=== PATIENT | female | born 1990 | race Hispanic/Latino ===

== ENCOUNTER 2018-05-17 13:10 | Emergency (ER) | payer SELFPAY ==
[2018-05-17] MEDS ORDERED: METHYLPREDNISOLONE 125 MG INJ ONE (13:42)
[2018-05-17] MEDS ORDERED: LEVALBUTEROL 1.25 MG/3 ML NEB ONE ×2 (13:42→15:34)
[2018-05-17] MEDS ORDERED: NA CHLORIDE 0.9% 1,000 ML ONE (13:42)
--- NOTE | 2018-05-17 15:59 | EDPHYS ---
Physician Documentation [facility] Name: Erika Conde Age: 27 yrs Sex: Female : 1990 Arrival Date: 05/17/2018 Time: 13:14 Bed 25 Private MD: ED Physician James Lua HPI: 05/17 14:36 This 27 yrs old Female presents to ER via Ambulatory with complaints of Asthma jr8 Exacerbation, Cough. 14:36 The patient presents to the emergency department with wheezing, Current therapy: jr8 albuterol inhaler, oral steroids. 15:50 Onset: The symptoms/episode began/occurred acutely, today. Modifying factors: The jr8 symptoms are alleviated by nothing, the symptoms are aggravated by nothing. Associated signs and symptoms: Pertinent negatives: chest pain, fever. Severity of symptoms: At their worst the symptoms were moderate in the emergency department the symptoms are unchanged. The patient has experienced similar episodes in the past, a few times. The patient has not recently seen a physician. 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 - Social history:: Smoking status: Patient/guardian denies using tobacco. - Ebola Screening: : No symptoms or risks identified at this time. ROS: 15:50 Eyes: Negative for injury, pain, redness, and discharge, ENT: Negative for injury, jr8 pain, and discharge, Neck: Negative for injury, pain, and swelling, Cardiovascular: Negative for chest pain, palpitations, and edema, Abdomen/GI: Negative for abdominal pain, nausea, vomiting, diarrhea, and constipation, Back: Negative for injury and pain, MS/Extremity: Negative for injury and deformity, Skin: Negative for injury, rash, and discoloration, Neuro: Negative for headache, weakness, numbness, tingling, and seizure. 15:50 Respiratory: Positive for cough, with no reported sputum, shortness of breath, wheezing. Exam: 15:50 Eyes: Pupils equal round and reactive to light, extra-ocular motions intact. Lids and jr8 lashes normal. Conjunctiva and sclera are non-icteric and not injected. Cornea within normal limits. Periorbital areas with no swelling, redness, or edema. ENT: Nares patent. No nasal discharge, no septal abnormalities noted. Tympanic membranes are normal and external auditory canals are clear. Oropharynx with no redness, swelling, or masses, exudates, or evidence of obstruction, uvula midline. Mucous membranes moist. Neck: Trachea midline, no thyromegaly or masses palpated, and no cervical lymphadenopathy. Supple, full range of motion without nuchal rigidity, or vertebral point tenderness. No Meningismus. Cardiovascular: Regular rate and rhythm with a normal S1 and S2. No gallops, murmurs, or rubs. Normal PMI, no JVD. No pulse deficits. Abdomen/GI: Soft, non-tender, with normal bowel sounds. No distension or tympany. No guarding or rebound. No evidence of tenderness throughout. Back: No spinal tenderness. No costovertebral tenderness. Full range of motion. Skin: Warm, dry with normal turgor. Normal color with no rashes, no lesions, and no evidence of cellulitis. MS/ Extremity: Pulses equal, no cyanosis. Neurovascular intact. Full, normal range of motion. Neuro: Awake and alert, GCS 15, oriented to person, place, time, and situation. Cranial nerves II-XII grossly intact. Motor strength 5/5 in all extremities. Sensory grossly intact. Cerebellar exam normal. Normal gait. 15:50 Respiratory: mild respiratory distress is noted, Respirations: tachypnea, Breath sounds: decreased breath sounds, that are moderate, are located in both bases, wheezing: expiratory that is moderate, is heard diffusely. Vital Signs: 13:24 BP 93 / 79; Pulse 115; Resp 26 S; Temp 97.2(TE); Pulse Ox 96% on R/A; Weight 80.29 kg aa5 (R); Pain 5/10; 14:58 BP 113 / 85; Pulse 114; Resp 20; Pulse Ox 98% on R/A; mt 15:16 BP 106 / 71; Pulse 85; Resp 18; Pulse Ox 100% on R/A; tl3 16:02 BP 108 / 72; Pulse 95; Resp 18; Pulse Ox 100% on Nebulizer Mask; tl3 16:43 BP 115 / 70; Pulse 109; Resp 18; Pulse Ox 100% ; tl3 MDM: 13:28 Patient medically screened. jr8 15:57 Data reviewed: vital signs, nurses notes, and as a result, I will discharge patient. jr8 Data interpreted: Pulse oximetry: on room air is 100 %. Interpretation: normal. Counseling: I had a detailed discussion with the patient and/or guardian regarding: the historical points, exam findings, and any diagnostic results supporting the discharge/admit diagnosis, the need for outpatient follow up, a family practitioner, to return to the emergency department if symptoms worsen or persist or if there are any questions or concerns that arise at home. Response to treatment: the patient's symptoms have markedly improved after treatment. 05/17 13:29 Order name: IV; Complete Time: 13:40 jr8 Administered Medications: 13:35 Drug: Xopenex (3) 1.25 mg Route: Inhalation; aa5 15:18 Follow up: Response: Wheezing diminished tl3 13:36 Drug: NS 0.9% 1000 ml Route: IV; Rate: 1000 ml; Site: left antecubital; aa5 15:18 Follow up: IV Status: Completed infusion; IV Intake: 1000ml tl3 13:36 Drug: SOLU-Medrol 125 mg Route: IVP; Site: left antecubital; aa5 15:18 Follow up: Response: No adverse reaction tl3 13:41 CANCELLED (Physician Discretion): SOLU-Medrol 2 mg/kg IVP once aa5 15:40 Drug: Xopenex (3) 1.25 mg Route: Inhalation; tl3 16:43 Follow up: Response: No adverse reaction; Wheezing diminished tl3 Disposition: 17:13 Co-signature as Attending Physician, James Lua MD I agree with the assessment and kdr plan of care. Disposition: 05/17/18 15:58 Discharged to Home. Impression: Moderate persistent asthma with (acute) exacerbation. - Condition is Stable. - Discharge Instructions: Asthma, Adult. - Prescriptions for Albuterol Sulfate 2.5 mg /3 mL (0.083 %) Inhalation Solution for Nebulization - inhale 1 unit by NEBULIZATION route every 8 hours As needed; 1 box. Prednisone 20 mg Oral Tablet - take 2 tablet by ORAL route once daily for 5 days; 10 tablet. Albuterol Sulfate 90 mcg/actuation - inhale 1-2 puff by INHALATION route every 4-6 hours; 1 Inhaler. - Medication Reconciliation Form, Thank You Letter, Antibiotic Education, Prescription Opioid Use form. - Follow up: Private Physician; When: 1 - 2 days; Reason: Recheck today's complaints, Continuance of care, Re-evaluation by your physician. - Problem is new. - Symptoms have improved. Signatures: James Lua MD MD [facility] Melani Velazquez RN RN aa5 Yuri Clark PA PA jr8 Angela Alvarado, VALENTINA RN tl3 Corrections: (The following items were deleted from the chart) 13:41 13:29 SOLU-Medrol 2 mg/kg IVP once ordered. jr8 aa5 16:44 15:58 05/17/2018 15:58 Discharged to Home. Impression: Moderate persistent asthma with tl3 (acute) exacerbation. Condition is Stable. Forms are Medication Reconciliation Form, Thank You Letter, Antibiotic Education, Prescription Opioid Use. Follow up: Private Physician; When: 1 - 2 days; Reason: Recheck today's complaints, Continuance of care, Re-evaluation by your physician. Problem is new. Symptoms have improved. jr8
--- NOTE | 2018-05-17 15:59 | ER ---
Nurse's Notes [facility] Name: Erika Conde Age: 27 yrs Sex: Female : 1990 Arrival Date: 05/17/2018 Time: 13:14 Bed 25 Private MD: Diagnosis: Moderate persistent asthma with (acute) exacerbation Presentation: 05/17 13:22 Presenting complaint: Patient states: cough, SOB, chest pressure that began 3 days ago aa5 but got worse about 0900 today. Tachypnea and wheezing noted in triage. Pt reports being 24 weeks . Transition of care: patient was not received from another setting of care. Onset of symptoms was May 17, 2018. Risk Assessment: Do you want to hurt yourself or someone else? Patient reports no desire to harm self or others. Initial Sepsis Screen: Does the patient meet any 2 criteria? No. Patient's initial sepsis screen is negative. Does the patient have a suspected source of infection? No. Patient's initial sepsis screen is negative. Care prior to arrival: None. 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 - Social history:: Smoking status: Patient/guardian denies using tobacco. - Ebola Screening: : No symptoms or risks identified at this time. Screenin:10 Abuse screen: Denies threats or abuse. Nutritional screening: No deficits noted. tl3 Tuberculosis screening: No symptoms or risk factors identified. Fall Risk None identified. Assessment: 13:10 General: Appears distressed, uncomfortable, well groomed, well developed, well tl3 nourished, Behavior is calm, cooperative, appropriate for age, anxious. Pain:. Neuro: Level of Consciousness is awake, alert, obeys commands, Oriented to person, place, time, situation, Appropriate for age. Cardiovascular: Patient's skin is warm and dry. Respiratory: Airway is patent Respiratory effort is unlabored, labored, Respiratory pattern is regular, symmetrical, tachypnea Breath sounds are coarse Breath sounds with wheezes bilaterally. GI: No signs and/or symptoms were reported involving the gastrointestinal system. : No signs and/or symptoms were reported regarding the genitourinary system. EENT: No signs and/or symptoms were reported regarding the EENT system. Derm: No signs and/or symptoms reported regarding the dermatologic system. Musculoskeletal: No signs and/or symptoms reported regarding the musculoskeletal system. 15:16 Reassessment: Patient and/or family updated on plan of care and expected duration. Pain tl3 level reassessed. Patient is alert, oriented x 3, equal unlabored respirations, skin warm/dry/pink. pt moving air much better, still has mild wheeze and frequent cough. 16:02 Reassessment: Patient appears in no apparent distress at this time. No changes from tl3 previously documented assessment. Patient and/or family updated on plan of care and expected duration. Pain level reassessed. Patient is alert, oriented x 3, equal unlabored respirations, skin warm/dry/pink. Vital Signs: 13:24 BP 93 / 79; Pulse 115; Resp 26 S; Temp 97.2(TE); Pulse Ox 96% on R/A; Weight 80.29 kg aa5 (R); Pain 5/10; 14:58 BP 113 / 85; Pulse 114; Resp 20; Pulse Ox 98% on R/A; mt 15:16 BP 106 / 71; Pulse 85; Resp 18; Pulse Ox 100% on R/A; tl3 16:02 BP 108 / 72; Pulse 95; Resp 18; Pulse Ox 100% on Nebulizer Mask; tl3 16:43 BP 115 / 70; Pulse 109; Resp 18; Pulse Ox 100% ; tl3 ED Course: 13:10 Patient has correct armband on for positive identification. Bed in low position. Call tl3 light in reach. Side rails up X2. Adult w/ patient. Pulse ox on. NIBP on. 13:10 No provider procedures requiring assistance completed. tl3 13:14 Patient arrived in ED. mr 13:23 Triage completed. aa5 13:23 Arm band placed on. aa5 13:25 Patient placed in an exam room, on a stretcher. aa5 13:28 Yuri Clark PA is PHCP. jr8 13:28 James Lua MD is Attending Physician. jr8 13:33 Inserted saline lock: 20 gauge in left antecubital area, using aseptic technique. aa5 15:10 Angela Alvarado, RN is Primary Nurse. tl3 16:43 IV discontinued, intact, bleeding controlled, No redness/swelling at site. Pressure tl3 dressing applied. Administered Medications: 13:35 Drug: Xopenex (3) 1.25 mg Route: Inhalation; aa5 15:18 Follow up: Response: Wheezing diminished tl3 13:36 Drug: NS 0.9% 1000 ml Route: IV; Rate: 1000 ml; Site: left antecubital; aa5 15:18 Follow up: IV Status: Completed infusion; IV Intake: 1000ml tl3 13:36 Drug: SOLU-Medrol 125 mg Route: IVP; Site: left antecubital; aa5 15:18 Follow up: Response: No adverse reaction tl3 13:41 CANCELLED (Physician Discretion): SOLU-Medrol 2 mg/kg IVP once aa5 15:40 Drug: Xopenex (3) 1.25 mg Route: Inhalation; tl3 16:43 Follow up: Response: No adverse reaction; Wheezing diminished tl3 Intake: 15:18 IV: 1000ml; Total: 1000ml. tl3 Outcome: 15:58 Discharge ordered by . jr8 16:43 Discharged to home ambulatory. tl3 16:43 Condition: good 16:43 Discharge instructions given to patient, Instructed on discharge instructions, follow up and referral plans. medication usage, Demonstrated understanding of instructions, follow-up care, medications, Prescriptions given X 3. 16:44 Patient left the ED. tl3 Signatures: Christal Russ mr VelazquezMelani, RN RN aa5 Yuri Clark PA PA jr8 Viki Foster me Angela Alvarado, RN RN tl3 Corrections: (The following items were deleted from the chart) 13:25 13:24 Pulse 115bpm; Resp 26bpm; Spontaneous; Pulse Ox 96% RA; Temp 97.2F Temporal; aa5 80.29 kg Reported; aa5 13:26 13:22 Presenting complaint: Patient states: cough, SOB, chest pressure that began 3 aa5 days ago but got worse about 0900 today. Tachypnea and wheezing noted in triage aa5
== END 2018-05-17 16:44 | disposition home or self-care (01) ==
LOC: ER 13:10
DX: J45.41 Moderate persistent asthma with (acute) exacerbation (principal)
CPT/HCPCS: 96361; 96374; 99284; J2930; J7030

== ENCOUNTER 2022-05-10 17:45 | Emergency (ER) | payer SELFPAY ==
[2022-05-10 18:59] LABS: Urine Blood Negative (Negative); Urine Glucose Negative (Negative); Urine Protein Negative (Negative); Urine pH 6.5 (5.0-7.0)
[2022-05-10 19:25] LABS: Urine Granular Casts 0-5 /LPF (None Seen); Urine Mucus 4+ /HPF (None Seen)
--- NOTE | 2022-05-10 19:30 | RAD REPORT ---
EXAM DESCRIPTION: US - Abdomen Exam Limited - 05/10/2022 7:25 pm CLINICAL HISTORY: EPIGASTRIC PAIN COMPARISON: No comparisons FINDINGS: The gallbladder demonstrates no gallstones. No pericholecystic fluid or gallbladder wall t hickening. The common bile duct is normal measuring 1 mm. The liver demonstrates no findings of intrahepatic biliary dilatation. IMPRESSION: Unremarkable examination.
[2022-05-10 20:55] LABS: Hematocrit 29.7 % (36.0-45.0); MCV 64.8 fL (80-100); MPV 8.8 fL (7.6-11.3); RBC Red Blood Cell Count 4.58 M/uL (3.86-4.86)
[2022-05-10 21:22] LABS: Albumin 3.8 g/dL (3.4-5.0); Bilirubin Total 0.2 mg/dL (0.2-1.0); Potassium 3.7 mmol/L (3.5-5.1); Protein, Total 7.6 g/dL (6.4-8.2)
--- NOTE | 2022-05-10 21:53 | RAD REPORT ---
EXAM DESCRIPTION: CT - Abdomen Pelvis Wo Contrast - 05/10/2022 9:47 pm CLINICAL HISTORY: Abdominal pain. epigastric/upper abdomen pain COMPARISON: <Comparisons> TECHNIQUE: CT imaging of the abdomen and pelvis was performed without contrast. Solid organ, bowel a nd vascular assessment is limited due to lack of IV and oral contrast. All CT scans are performed using dose optimization technique as appropriate and may include automated exposure control or mA/KV adjustment according to patient size. FINDINGS: The lower lung finch are clear. The liver, spleen, pancreas, adrenal glands and kidneys are within normal limits for a limited non-co ntrast examination. No bowel obstruction, free air, free fluid or abscess. The appendix is normal. The osseous structures are within normal limits. IMPRESSION: No acute intra-abdominal or pelvic findings. A limited non-contrast examination was performed as detailed.
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
[2022-05-11 14:11] VITALS: TEMP 98.1
[2022-05-11 14:21] VITALS: O2SAT 100
[2022-05-11 14:23] VITALS: BP 111/70
== END 2022-05-10 23:06 | disposition home or self-care (01) ==
LOC: ER 17:45
DX: R10.13 Epigastric pain (principal); D64.9 Anemia, unspecified
CPT/HCPCS: 36415; 74176; 76705; 80053; 81003; 81015; 81025; 83690; 85025; 99284

== ENCOUNTER 2022-09-24 15:30 | Emergency (ER) | payer SELFPAY ==
--- OUTSIDE RECORDS SUMMARY | 2022-09-24 15:39 | XMS REPORT | Continuity of Care Document ---
:1990 Author Organization [facility] t Address [address] [place] [address] Care Team Providers Name Role Phone Jacqueline Sebastian Primary Care Physician [phone] JACQUELINE VILLALOBOS Attending Clinician Unavailable Jacqueline Sebastian Attending Clinician [phone] LEE ANN HUSSEIN Attending Clinician Unavailable Lee Ann Hussein MD Attending Clinician MISTY HOOKER Attending Clinician Unavailable Misty Tineo Attending Clinician WYATT HUGGINS Attending Clinician Unavailable OTILIA BRITTON Attending Clinician Unavailable Otilia Ortiz Attending Clinician PENNY HOLCOMB Attending Clinician Unavailable Penny Holcomb MD Attending Clinician Elena Gaines RN Attending Clinician Yaima Julio Attending Clinician Rosendo Vance MD Attending Clinician Toby Pruitt MD Attending Clinician Visit, [facility] Nurse Attending Clinician Unavailable Doctor Unassigned, [place] Attending Clinician Unavailable LEE ANN HUSSEIN Admitting Clinician Unavailable MISTY HOOKER Admitting Clinician Unavailable OTILIA BRITTON Admitting Clinician Unavailable Rosendo Vance MD Admitting Clinician Payers Payer Name Policy Type Policy Number Effective Date Expiration Date S ource MEDICAID ALIEN PENDING 2022 PENDING 00:00:00 Problems Condition Condition Condition Status Onset Resolution Last Treating Co mments Source Name Details Category Date Date Treatment Clinician Date Abnormal Abnormal Disease Active Overview: Un lalit maternal maternal 09-23 Formattin ity of glucose glucose 00:00: g of this [place] tolerance, tolerance, 00 note Me dical antepartum antepartum might be Branch different from the original. Pending 3hr gtt Supervisio Supervisio Disease Active U nivers n of n of 1-25 ity of high-risk high-risk 00:[place] [facility] Vaginal Vaginal Disease Active Univers bleeding bleeding 1-25 ity of during during 00:00: [place] 00 [facility] Trichomona Trichomona Disease Active Overview : Univers l l 1-25 Formattin ity of vaginitis vaginitis 00:00: [place] of this [place] during during 00 note Medical might be Br anch different from the original. Dx at the ED on meds, pending demi UTI in UTI in Disease Active Overview: Univer s 09-21 Formattin i ty of 00:00: g of this note Medical might be Branch different from the original. Dx at the ED on meds, pending demi Multiparit Multiparit Disease Active U nivers y y 1-25 ity of 00:00: Medical Branch Cellulitis Cellulitis Disease Active U nivers of right of right 6-02 ity of buttock buttock 00:00: Medical Branch Obesity in Obesity in Disease Active U nivers 2-22 ity of 00:00: Medical Branch Well woman Well woman Disease Active U nivers exam exam 2-22 ity of 00:00: Medical Branch Contracept Contracept Disease Active U nivers hermila hermila 2-22 ity of management management 00:00: [place] [facility] Obesity Obesity Disease Active 2018- Univers (BMI (BMI 2-22 ity of 30-39.9) 30-39.9) 00:00: [place] 00 Medical Branch Contracept Contracept Disease Active U nivers hermila hermila 2-22 ity of management management 00:00: [place] [facility] Vaginal Vaginal Disease Active Univers symptom symptom 1-15 ity of 00:00: [place] 00 Medical Branch History of History of Disease Active U nivers asthma asthma 1-04 ity of 00:00: [place] 00 [facility] Allergies, Adverse Reactions, Alerts Allergy Allergy Status Severity Reaction(s) Onset Inactive Treating Comm ents Source Name Type Date Date Clinician NO KNOWN Drug Active Univers ALLERGIE Class ity of S [facility] [place] [facility] Social History Social Habit Start Date Stop Date Quantity Comments Source ASSERTION 2022-08-25 [facility] 00:00:00 [facility] [place] [facility] Alcohol intake 2022-09-21 2022-09-21 Current [facility] 00:00:00 00:00:00 non-drinker of [facility] alcohol (finding) [place] Tobacco use and 2022-09-21 2022-09-21 Smokeless tobacco Un iversity of exposure 00:00:00 00:00:00 non-user [facility] [place] [facility] Exposure to 2022-09-10 2022-09-20 Not sure [facility] SARS-CoV-2 00:00:00 08:21:00 [facility] (event) [place] Sex Assigned At [birth year] [facility] 00:[facility]:00 00:00:00 [facility] [place] [facility] Smoking Status Start Date Stop Date Source Never smoked tobacco [facility] [place] [facility] Medications Ordered Filled Start Stop Current Ordering Indication Dosage Frequency Signature Comments Components Source Medication Medication Date Date Medication? Clinician (SIG) Name Name ALBUTEROL 2022- No 1{puff} Inhale 1 Univers SULFATE 09-21 Puff every ity o f INHALE 14:43: 00:00 8 (eight) [place] 24 :00 hours as Medical needed for Branch Other (Wheezing) . ALBUTEROL 2022- No 1{puff} Inhale 1 Univers SULFATE 1-25 01-25 Puff every ity o f INHALE 14:43: 00:00 8 (eight) [place] 24 :00 hours as Medical needed for Branch Other (Wheezing) . Nitrofurant 0 Yes [id number] 100mg Take 1 Univers oin&Nit. 1-24 capsule by ity o f [place] 00:00: mouth 2 [place] (MACROBID[place] 00 (two) Medical 100 mg times Branch capsule daily. Nitrofurant 2022-0 Yes [id number] 100mg Take 1 Univers oin&Nit. 1-24 capsule by ity o f Mac[place]ryst 00:00: mouth 2 [place] (MACROBID[place] 00 (two) Medical 100 mg times Branch capsule daily. metroNIDAZO Yes TAKE 4 Univ ers LE 500 mg 1-24 TABLETS BY ity of tablet 00:00: MOUTH ONCE 00 DAILY NOW Medical FOR 1 DOSE Branch Nitrofurant 0 Yes [id number] 100mg Take 1 Univers oin&Nit. 1-24 capsule by ity o f [place] 00:00: mouth 2 [place] (MACROBID[place] 00 (two) Medical 100 mg times Branch capsule daily. metroNIDAZO Yes TAKE 4 Univ ers LE 500 mg 1-24 TABLETS BY ity of tablet 00:00: MOUTH ONCE DAILY NOW Medical FOR 1 DOSE Branch Nitrofurant 2022-0 Yes [id number] 100mg Take 1 Univers oin&Nit. 1-24 capsule by ity o f [place] 00:00: mouth 2 [place] (MACROBID) 00 (two) Medical 100 mg times Branch capsule daily. metroNIDAZO 2022-0 Yes TAKE 4 Univ ers LE 500 mg 1-24 TABLETS BY ity of tablet 00:00: MOUTH ONCE 00 DAILY NOW Medical FOR 1 DOSE Branch Nitrofurant 2022-0 Yes [id number] 100mg Take 1 Univers oin&Nit. 1-24 capsule by ity o f [place] 00:00: mouth 2 [place] (MACROBID) 00 (two) Medical 100 mg times Branch capsule daily. metroNIDAZO 2022-0 Yes TAKE 4 Univ ers LE 500 mg 1-24 TABLETS BY ity of tablet 00:00: MOUTH ONCE 00 DAILY NOW Medical FOR 1 DOSE Branch NaCl 0.9% No 1000mL at 999 Uni vers (NS) bolus 11-09 03-16 mL/hr, ity of infusion 23:45: 01:15 1,000 mL, [place]ra as 1,000 mL 00 :00 IV Medical Infusion, Branch ONCE, 1 dose, On Mon11/09/21 at 1845, MICHAELA ketorolac 2021- No 30mg 30 mg, Unive rs (TORADOL) 11-09-15 Slow IV ity of injection 23:45: 23:36 Push, [place] 30 mg 00 :00 ONCE, 1 Medical dose, On Branch e 11/09/21 at 1845, MICHAELA ondansetron 2021- No 4mg 4 mg, Slow Univers (ZOFRAN 11-09-15 IV Push, ity of (PF)) 23:45: 23:36 ONCE, 1 [place] injection 4 00 :00 dose, On Medi koffi mg Tue Branch 11/09/21 at 1845, MICHAELA benzonatate 2021-0 Yes [id number] 100mg Take 1 Univers 100 mg 3-15 capsule by ity of capsule 00:00: mouth 3 00 (three) Medical times Branch daily as needed for Cough. ondansetron 2021-0 Yes [id number] 4mg Take 1 U nivers (ZOFRAN) 4 3-15 tablet by ity of mg tablet 00:00: mouth 00 every 8 Medical (eight) Branch hours as needed for Nausea and Vomiting (N/V). benzonatate 2021-0 Yes [id number] 100mg Take 1 Univers 100 mg 3-15 capsule by ity of capsule 00:00: mouth 3 00 (three) Medical times Branch daily as needed for Cough. ondansetron 2021-0 Yes [id number] 4mg Take 1 U nivers (ZOFRAN) 4 3-15 tablet by ity of mg tablet 00:00: mouth 00 every 8 Medical (eight) Branch hours as needed for Nausea and Vomiting (N/V). benzonatate 2-0 Yes [id number] 100mg Take 1 Univers 100 mg 3-15 capsule by ity of capsule 00:00: mouth 3 00 (three) Medical times Branch daily as needed for Cough. ondansetron 2022-0 Yes [id number] 4mg Take 1 U nivers (ZOFRAN) 4 3-15 tablet by ity of mg tablet 00:00: mouth [place] 00 every 8 Medical (eight) Branch hours as needed for Nausea and Vomiting (N/V). benzonatate 2-0 Yes [id number] 100mg Take 1 Univers 100 mg 3-15 capsule by ity of capsule 00:00: mouth 3 [place] 00 (three) Medical times Branch daily as needed for Cough. ondansetron 2021-0 Yes [id number] 4mg Take 1 U nivers (ZOFRAN) 4 3-15 tablet by ity of mg tablet 00:00: mouth [place] 00 every 8 Medical (eight) Branch hours as needed for Nausea and Vomiting (N/V). benzonatate 2021-0 Yes [id number] 100mg Take 1 Univers 100 mg 3-15 capsule by ity of capsule 00:00: mouth 3 00 (three) Medical times Branch daily as needed for Cough. ondansetron 2021-0 Yes [id number] 4mg Take 1 U nivers (ZOFRAN) 4 3-15 tablet by ity of mg tablet 00:00: mouth [place] 00 every 8 Medical (eight) Branch hours as needed for Nausea and Vomiting (N/V). benzonatate 2021-0 Yes [id number] 100mg Take 1 Univers 100 mg 3-15 capsule by ity of capsule 00:00: mouth 3 00 (three) Medical times Branch daily as needed for Cough. ondansetron 2021-0 Yes [id number] 4mg Take 1 U nivers (ZOFRAN) 4 3-15 tablet by ity of mg tablet 00:00: mouth [place] 00 every 8 Medical (eight) Branch hours as needed for Nausea and Vomiting (N/V). predniSONE 2021-2021- No [id number] 40mg Take 2 Univers 20 mg 3-15 03-21 tablets by ity of tablet 00:00: 04:59 mouth [place] 00 :00 daily for Medical 5 days. Branch ipratropium 2020-08- No 3mL 3 mL, Univ ers -albuteroL 2-10 12-10 Inhalation it y of (DUONEB) 09:30: 08:37 , ONCE, 1 [place] 0.5 mg-3 00 :00 dose, On Medical mg(2.5 mg Fri Branch base)/3 mL 08/06/21 nebulizer at 0330, solution 3 Routine mL dexamethaso 2020-08 No 10mg 10 mg, Uni vers ne 2-10 12-10 Oral, ity of (DECADRON 09:30: 08:27 ONCE, 1 [place] PHOSPHATE[place] 00 :00 dose, On Medic al injection Fri Branch 10 mg 08/06/21 at 0330, STAT ipratropium 2020-08- No 3mL 3 mL, Univ ers -albuteroL 2-10 12-10 Inhalation it y of (DUONEB) 07:45: 06:51 , ONCE, 1 [place] 0.5 mg-3 00 :00 dose, On Medical mg(2.5 mg Fri Branch base)/3 mL 08/06/21 nebulizer at 0145, solution 3 Routine mL predniSONE 2020-08 Yes [id number] 50mg Take 1 Univers 50 mg 2-10 tablet by ity of tablet 00:00: mouth [place] 00 daily. Medical Branch albuterol 2020-08 Yes [id number] 2{puff} Inhale 2 Univers 90 2-10 Puffs ity of mcg/actuati 00:00: every 4 [place] as on inhaler 00 (four) Medical hours as Branch needed for Wheezing or Shortness of Breath. albuterol 2020-08 Yes [id number] 2.5mg Inhale 3 Univers 2.5 mg /3 2-10 mL every 4 ity of mL (0.083 00:00: (four) [place] %) 00 hours. May Medical nebulizer also Branch solution nebulize one extra every 6 hours. albuterol 2020-08 Yes [id number] 2{puff} Inhale 2 Univers 90 2-10 Puffs ity of mcg/actuati 00:00: every 4 [place] as on inhaler 00 (four) Medical hours as Branch needed for Wheezing or Shortness of Breath. albuterol 2020-08 Yes [id number] 2.5mg Inhale 3 Univers 2.5 mg /3 2-10 mL every 4 ity of mL (0.083 00:00: (four) [place] %) 00 hours. May Medical nebulizer also Branch solution nebulize one extra every 6 hours. albuterol 2020-08 Yes [id number] 2{puff} Inhale 2 Univers 90 2-10 Puffs ity of mcg/actuati 00:00: every 4 [place] as on inhaler 00 (four) Medical hours as Branch needed for Wheezing or Shortness of Breath. albuterol 2020-08 Yes [id number] 2.5mg Inhale 3 Univers 2.5 mg /3 2-10 mL every 4 ity of mL (0.083 00:00: (four) [place] %) 00 hours. May Medical nebulizer also Branch solution nebulize one extra every 6 hours. albuterol 2020-08 Yes [id number] 2{puff} Inhale 2 Univers 90 2-10 Puffs ity of mcg/actuati 00:00: every 4 [place] on inhaler 00 (four) Medical hours as Branch needed for Wheezing or Shortness of Breath. albuterol 2020-08 Yes [id number] 2{puff} Inhale 2 Univers 90 2-10 Puffs ity of mcg/actuati 00:00: every 4 [place] on inhaler 00 (four) Medical hours as Branch needed for Wheezing or Shortness of Breath. albuterol 2020-08 Yes [id number] 2{puff} Inhale 2 Univers 90 2-10 Puffs ity of mcg/actuati 00:00: every 4 [place] as on inhaler 00 (four) Medical hours as Branch needed for Wheezing or Shortness of Breath. albuterol 2020-08 Yes [id number] 2{puff} Inhale 2 Univers 90 2-10 Puffs ity of mcg/actuati 00:00: every 4 [place] on inhaler 00 (four) Medical hours as Branch needed for Wheezing or Shortness of Breath. albuterol 2020-08 No [id number] 2.5mg Inhale 3 Univers 2.5 mg /3 2-10 01-25 mL every 4 ity of mL (0.083 00:00: 00:00 (four) [place] %) 00 :00 hours. May Medical nebulizer also Branch solution nebulize one extra every 6 hours. albuterol 2020-08- No [id number] 2.5mg Inhale 3 Univers 2.5 mg /3 2-10 01-25 mL every 4 ity of mL (0.083 00:00: 00:00 (four) [place] %) 00 :00 hours. May Medical nebulizer also Branch solution nebulize one extra every 6 hours. predniSONE 2020-08- No [id number] 50mg Take 1 Univers 50 mg 2-10 03-15 tablet by ity of tablet 00:00: 00:00 mouth [place] 00 :00 daily. Medical Branch ALBUTEROL Yes 1{puff} Inhale 1 U nivers SULFATE 6-22 Puff every ity of INHALE 21:27: 8 (eight) [place] 26 hours as Medical needed for Branch Other (Wheezing) . ALBUTEROL Yes 1{puff} Inhale 1 U nivers SULFATE 6-22 Puff every ity of INHALE 21:27: 8 (eight) [place] 26 hours as Medical needed for Branch Other (Wheezing) . ALBUTEROL Yes 1{puff} Inhale 1 U nivers SULFATE 6-22 Puff every ity of INHALE 16:27: 8 (eight) [place] 26 hours as Medical needed for Branch Other (Wheezing) . ALBUTEROL Yes 1{puff} Inhale 1 U nivers SULFATE 6-22 Puff every ity of INHALE 16:27: 8 (eight) [place] 26 hours as Medical needed for Branch Other (Wheezing) . ALBUTEROL Yes 1{puff} Inhale 1 U nivers SULFATE 6-22 Puff every ity of INHALE 16:27: 8 (eight) [place] 26 hours as Medical needed for Branch Other (Wheezing) . ALBUTEROL Yes 1{puff} Inhale 1 U nivers SULFATE 6-04 Puff every ity of INHALE 17:25: 8 (eight) [place] 36 hours as Medical needed for Branch Other (Wheezing) . ALBUTEROL Yes 1{puff} Inhale 1 U nivers SULFATE 6-04 Puff every ity of INHALE 17:25: 8 (eight) [place] 36 hours as Medical needed for Branch Other (Wheezing) . ALBUTEROL Yes 1{puff} Inhale 1 U nivers SULFATE 6-04 Puff every ity of INHALE 17:25: 8 (eight) [place] 36 hours as Medical needed for Branch Other (Wheezing) . KCL 2020- No 40meq 40 mEq, Univers (KLOR-CON 6-04 06-04 Oral, ity of M20) tablet 15:30: 16:35 ONCE, 1 [place] 40 mEq 00 :00 dose, Fri Medical 01/29/21 at Branch 1030, Routine morpHINE 2020-2020- No 2mg 2 mg, Slow Un lalit injection 2 01-29 06-04 IV Push, ity of mg 05:30: 04:25 ONCE, 1 [place] 00 :00 dose, Fri Medical 01/29/21 at Branch 0030, Routine acidophilus 2020-0 Yes [id number] 1g Take 1 Univers 100 million 6-04 tablet by ity of cell tablet 00:00: mouth 2 [place] 00 (two) Medical times Branch daily. acidophilus 2020-0 Yes [id number] 1g Take 1 Univers 100 million 6-04 tablet by ity of cell tablet 00:00: mouth 2 [place] 00 (two) Medical times Branch daily. acidophilus 2020-0 Yes [id number] 1g Take 1 Univers 100 million 6-04 tablet by ity of cell tablet 00:00: mouth 2 [place] 00 (two) Medical times Branch daily. acidophilus 2020-0 Yes [id number] 1g Take 1 Univers 100 million 6-04 tablet by ity of cell tablet 00:00: mouth 2 [place] 00 (two) Medical times Branch daily. acidophilus 2020-0 Yes [id number] 1g Take 1 Univers 100 million 6-04 tablet by ity of cell tablet 00:00: mouth 2 [place] 00 (two) Medical times Branch daily. acidophilus 2020-0 Yes [id number] 1g Take 1 Univers 100 million 6-04 tablet by ity of cell tablet 00:00: mouth 2 [place] 00 (two) Medical times Branch daily. acidophilus 2020-0 Yes [id number] 1g Take 1 Univers 100 million 6-04 tablet by ity of cell tablet 00:00: mouth 2 [place] 00 (two) Medical times Branch daily. acidophilus 2020-0 Yes [id number] 1g Take 1 Univers 100 million 6-04 tablet by ity of cell tablet 00:00: mouth 2 [place] 00 (two) Medical times Branch daily. acidophilus 2020-0 Yes [id number] 1g Take 1 Univers 100 million 6-04 tablet by ity of cell tablet 00:00: mouth 2 [place] 00 (two) Medical times Branch daily. acidophilus Yes [id number] 1g Take 1 Univers 100 million 6-04 tablet by ity of cell tablet 00:00: mouth 2 [place] 00 (two) Medical times Branch daily. acidophilus Yes [id number] 1g Take 1 Univers 100 million 6-04 tablet by ity of cell tablet 00:00: mouth 2 [place] 00 (two) Medical times Branch daily. acidophilus Yes [id number] 1g Take 1 Univers 100 million 6-04 tablet by ity of cell tablet 00:00: mouth 2 [place] 00 (two) Medical times Branch daily. sulfamethox 2020- No [id number] 1{tbl} Take 1 Univers azole-trime 6-04 06-12 tablet by it y of thoprim 00:00: 04:59 mouth 2 [place] (BACTRIM 00 :00 (two) Medical DS) 800-160 times Branch mg per daily for tablet 7 days. sulfamethox 2020- No [id number] 1{tbl} Take 1 Univers azole-trime 6-04 06-12 tablet by it y of thoprim 00:00: 04:59 mouth 2 [place] (BACTRIM 00 :00 (two) Medical DS) 800-160 times Branch mg per daily for tablet 7 days. sulfamethox 2020- No [id number] 1{tbl} Take 1 Univers azole-trime 6-04 06-12 tablet by it y of thoprim 00:00: 04:59 mouth 2 [place] (BACTRIM 00 :00 (two) Medical DS) 800-160 times Branch mg per daily for tablet 7 days. ALBUTEROL Yes 1{puff} Inhale 1 U nivers SULFATE 6-03 Puff every ity of INHALE 14:37: 8 (eight) [place] 52 hours as Medical needed for Branch Other (Wheezing) . ALBUTEROL Yes 1{puff} Inhale 1 U nivers SULFATE 6-03 Puff every ity of INHALE 14:37: 8 (eight) [place] 52 hours as Medical needed for Branch Other (Wheezing) . albuterol Yes 2.5mg 2.5 mg, Univ ers (PROVENTIL) 6-03 Inhalation it y of 2.5 mg /3 14:37: , Q6HPRN, Ind[place] as mL (0.083 36 Starting Medica l %) [facility] 01/28/21 Branch nebulizer at 0937, solution Until 2.5 mg Discontinu ed, Shortness of Breath, Wheezing albuterol Yes 2.5mg 2.5 mg, Univ ers (PROVENTIL) 01-28 Inhalation it y of 2.5 mg /3 14:37: , Q6HPRN, Ind[place] as mL (0.083 36 Starting Medica l %) [facility] 01/28/21 Branch nebulizer at 0937, solution Until 2.5 mg Discontinu ed, Shortness of Breath, Wheezing morpHINE 2020- No 2mg 2 mg, Slow Un lalit injection 2 01-28 IV Push, ity of mg 13:17: 21:16 [facility] [place] 25 :25 Starting [facility] 01/28/21 Branch at 0817, Until [facility] 01/28/21 at 1616, Routine, Pain (scale 7-10) morpHINE 2020- No 2mg 2 mg, Slow Un lalit injection 2 01-28 IV Push, ity of mg 13:17: 21:16 [facility], [place] 25 :25 Starting [facility] 01/28/21 Branch at 0817, Until [facility] 01/28/21 at 1616, Routine, Pain (scale 7-10) ketorolac 2020- No 30mg 30 mg, Unive rs (TORADOL) 01-27 Slow IV ity of injection 22:08: 22:09 Push, PRN, [place] 30 mg 51 :00 1 dose, Medical Starting Branch Mon01/27/21 at 1708, Until Mon01/27/21 at 1709, Routine, Pain (scale 4-6), PACU
Fa culty member approving Restricted medication : TOBY PRUITT enoxaparin Yes 40mg 40 mg, Unive rs (LOVENOX) 01-27 Subcutaneo ity of injection 22:00: [place], DAILY, [place] 40 mg 00 First dose Medical on Mon Branch 01/27/21 at 1700, Until Discontinu ed, Routine enoxaparin 0 Yes 40mg 40 mg, Unive rs (LOVENOX) 01-27 Subcutaneo ity of injection 22:00: [place], DAILY, [place] 40 mg 00 First dose Medical on Mon01/27/21 at 1700, Until Discontinu ed, Routine morpHINE 0 2020- No 2mg 2 mg, Slow Un lalit injection 2 01-27 IV Push, ity of mg 21:45: 22:22 Q5MIN PRN, [place] 35 :02 5 doses, Medical Starting Mon01/27/21 at 1645, Until Mon01/27/21 at 1722, Routine, Pain (scale 4-6), PACU HYDROcodone 2020-0 Yes 1{tbl} 1 tablet, Univers -acetaminop 6-02 Oral, ity of hen (NORCO) 21:34: Q6HPRN, Ind[place] as 10-325 mg 03 Starting Medica l tablet Mon01/27/21 Branc h tablet at 1634, Until Discontinu ed, Routine, Pain (scale 4-6) HYDROcodone 2020-0 Yes 1{tbl} 1 tablet, Univers -acetaminop 6-02 Oral, ity of hen (NORCO) 21:34: Q6HPRN, [place] as 10-325 mg 03 Starting Medica l tablet Mon01/27/21 Branc h tablet at 1634, Until Discontinu ed, Routine, Pain (scale 4-6) HYDROcodone 2020-0 Yes 1{tbl} 1 tablet, Univers -acetaminop 6-02 Oral, ity of hen (NORCO 21:33: Q6HPRN, [place] 5) 5-325 mg 48 Starting Medi koffi tablet Mon01/27/21 Branc h tablet at 1633, Until Discontinu ed, Routine, Pain (scale 1-3) HYDROcodone 2020-0 Yes 1{tbl} 1 tablet, Univers -acetaminop 6-02 Oral, ity of hen (NORCO 21:33: Q6HPRN, [place] 5) 5-325 mg 48 Starting Medi koffi tablet Mon01/27/21 Branc h tablet at 1633, Until Discontinu ed, Routine, Pain (scale 1-3) PHENYLephri 2020- No Slow IV Un lalit ne 1000 01-2702 Push, ONCE ity o f mcg/10 mL 21:16: 21:36 INTRA [place] in 0.9% 00 :50 PROCEDURE, Medica l NaCl Starting Branch syringe 01/27/21 at 1616, Until 01/27/21 at 1636, Routine, Intra-op ondansetron 2020- No Slow IV Un lalit (ZOFRAN 01-27 Push, ONCE ity o f (PF)) 21:14: 21:36 INTRA [place] injection 00 :50 PROCEDURE, Medi koffi Starting Branch 01/27/21 at 1614, Until 01/27/21 at 1636, Routine, Intra-op dexamethaso 2020- No IV Push, U nivers ne 01-2702 ONCE INTRA ity of (DECADRON 21:12: 21:36 PROCEDURE, [place] PHOSPHATE) 00 :50 Starting Medic al injection 01/27/21 Bran ch at 1612, Until 01/27/21 at 1636, Routine, Intra-op lidocaine 2020- No Intravenou U nivers 1% 01-2702 s, ONCE ity of (XYLOCAINE) 21:07: 21:36 INTRA [place] 100 mg/10 00 :50 PROCEDURE, Medi koffi mL (1 %) Starting Branch injection 01/27/21 at 1607, Until 01/27/21 at 1636, Routine, Intra-op propofoL IV 2020- No Intravenou Univers infusion 01-27-02 s, ONCE ity of 21:07: 21:36 INTRA [place] 00 :50 PROCEDURE, Medical Starting Branch 01/27/21 at 1607, Until 01/27/21 at 1636, Routine, Intra-op FENTanyl PF 2020- No Intravenou Univers (SUBLIMAZE 01-27 06- s, ONCE ity o f (PF)) 21:07: 21:36 INTRA [place] injection 00 :50 PROCEDURE, Medi koffi Starting Branch 01/27/21 at 1607, Until 01/27/21 at 1636, Routine, Intra-op midazolam 2020- No IV Push, Uni vers (VERSED) 01-27 ONCE INTRA ity of injection 20:57: 21:36 PROCEDURE, [place] 00 :50 Starting Medical Mon01/27/21 Branch at 1557, Until Mon01/27/21 at 1636, Routine, Intra-op lactated 2020- No IV Univers ringers IV 01-27 Infusion, ity of infusion 20:57: 21:36 CONTINUOUS [place] 00 :50 PRN, Medical Starting Branch Mon01/27/21 at 1557, Until Mon01/27/21 at 1636, Routine, Intra-op vancomycin Yes 1500mg 1,500 mg, Univers 1500 mg in 01-27 IV ity of NS 500 mL 16:00: Infusion, Indra as IV 00 Q12H ABX, Medical Piggyback First dose Bran ch RTU 1,500 on Mon mg 01/27/21 at 1100, Until Discontinu ed
Reas on for Anti-Infec tive: Documented Infection< br>Documen mariah Infection Site: Skin / Soft Tissue
Duration of Therapy: 10 days vancomycin Yes 1500mg 1,500 mg, Univers 1500 mg in 01-27 IV ity of NS 500 mL 16:00: Infusion, [place] as IV 00 Q12H ABX, Medical Piggyback First dose Bran ch RTU 1,500 on Mon mg 01/27/21 at 1100, Until Discontinu ed
Reas on for Anti-Infec tive: Documented Infection< br>Documen mariah Infection Site: Skin / Soft Tissue
Duration of Therapy: 10 days piperacilli Yes 3.375g 3.375 g, Univers n-tazobacta 01-27 IV ity of m (ZOSYN) 13:00: [place]gyback, [place] 3.375 g in 00 Q6H ABX, Medic al NaCl 0.9% First dose Bran ch (NS) 100 mL (after MINI-BAG last reorder) on Mon01/27/21 at 0800, Until Discontinu ed, 100 mL
Reas on for Anti-Infec tive: Documented Infection< br>Documen mariah Infection Site: Skin / Soft Tissue
Duration of Therapy: Other (see Comments) piperacilli 2020-0 Yes 3.375g 3.375 g, Univers n-tazobacta 01-27 IV ity of m (ZOSYN) 13:00: Piggyback, [place] 3.375 g in 00 Q6H ABX, Medic al NaCl 0.9% First dose Bran ch (NS) 100 mL (after MINI-BAG last reorder) on Mon01/27/21 at 0800, Until Discontinu ed, 100 mL
Reas on for Anti-Infec tive: Documented Infection< br>Documen mariah Infection Site: Skin / Soft Tissue
Duration of Therapy: Other (see Comments) NaCl 0.9% 2020- No 1000mL at 125 Uni vers (NS) IV 01-27 06-03 mL/hr, IV ity of infusion 11:45: 13:18 Infusion, Indra as 1,000 mL 00 :05 CONTINUOUS Medic al , Starting Branch Mon01/27/21 at 0645, Until [place] 01/28/21 at 0818, Routine NaCl 0.9% 2020- No 2000mL at 125 Uni vers (NS) IV 01-27 06-02 mL/hr, IV ity of infusion 07:15: 07:36 Infusion, [place] as 2,000 mL 00 :00 ONCE, 1 Medical dose, Mon01/27/21 at 0215, Routine ondansetron 2020-0 Yes 4mg 4 mg, Slow Univers (ZOFRAN -02 IV Push, ity of (PF)) 06:12: Q6HPRN, [place] injection 4 31 Starting Medi koffi mg Mon01/27/21 Branch at 0112, Until Discontinu ed, Routine, Nausea and Vomiting (N/V) ondansetron 2020-0 Yes 4mg 4 mg, Slow Univers (ZOFRAN 6-02 IV Push, ity of (PF)) 06:12: Q6HPRN, [place] injection 4 31 Starting Medi koffi mg Mon01/27/21 Branch at 0112, Until Discontinu ed, Routine, Nausea and Vomiting (N/V) morpHINE 2020-0 2020- No 2mg 2 mg, Slow Un lalit injection 2 01-27 06-02 IV Push, ity of mg 06:12: 21:34 Q4HPRN, [place] 24 :15 Starting Medical 01/27/21 Branch at 0112, Until 01/27/21 at 1634, Routine, Pain (scale 7-10) piperacilli 2020- No 3.375g 3.375 g, Univers n-tazobacta 01-27 IV ity of m (ZOSYN) 04:15: 03:40 [place] 3.375 g in 00 :00 ONCE, 1 Medica l NaCl 0.9% dose, Tue Branc h (NS) 100 mL 01/26/21 at MINI-BAG 2315, 100 mL
Reas on for Anti-Infec tive: Documented Infection< br>Documen mariah Infection Site: Skin / Soft Tissue
Duration of Therapy: Other (see Comments) vancomycin 2020- No 1000mg 1,000 mg, Univers (VANCOCIN) 01-27 IV ity of 1,000 mg in 04:00: 04:57 Piggyback, [place] NaCl 0.9% 00 :00 ONCE, 1 Medical (NS) 250 mL dose, Tue [facility] VIAL-MATE 01/26/21 at IV 2300, 250 piggyback mL
Reas on for Anti-Infec tive: Documented Infection< br>Documen mariah Infection Site: Skin / Soft Tissue
Duration of Therapy: Other (see Comments) iopamidol 2020- No [id number] 120mL 120 mL, Univers (ISOVUE 01-27 Intravenou ity o f 370-500 mL) 04:00: 02:50 s, ONCE, 1 [place] injection 00 :00 dose, Tue Medic al 120 mL 01/26/21 at Branch 2300, Routine NaCl 0.9% 2020- No 1000mL at 999 Uni vers (NS) bolus 01-27 mL/hr, ity of infusion 03:45: 03:57 1,000 mL, Indra as 1,000 mL 00 :00 IV Medical Infusion, Branch ONCE, 1 dose, 01/26/21 at 2245, STAT ondansetron 2020- No 4mg 4 mg, Slow Univers (ZOFRAN 01-27 IV Push, ity of (PF)) 03:30: 02:19 ONCE, 1 [place] injection 4 00 :00 dose, Tue Med ical mg 01/26/21 at Branch 2230, MICHAELA morpHINE 2020-0 2020- No 4mg 4 mg, Slow Un lalit injection 4 01-27 IV Push, ity of mg 03:30: 02:18 ONCE, 1 [place] 00 :00 dose, Tue Medical 01/26/21 at Branch 2230, STAT medroxyPROG 2019- No [id number] 150mg Univers ESTERone 10-19 ity of (DEPO-PROVE 18:00: 17:59 [place] RA) 00 :00 Medical injection Branch 150 mg medroxyPROG 2019- No [id number] 150mg Univers ESTERone 10-19 ity of (DEPO-PROVE 18:00: 17:59 [place] RA) 00 :00 Medical injection Branch 150 mg medroxyPROG 2019- No [id number] 150mg 150 mg, Univers ESTERone 10-19 Intramuscu ity of (DEPO-PROVE 18:00: 17:59 lar, [place] RA) 00 :00 [id number], Medical injection 4 doses, Branch 150 mg First dose on Mon10/19/18 at 1200, Last dose on Mon06/28/19 at 1200, Routine albuterol Yes 2.5mg Use 0.5 mL U nivers 2.5 mg/0.5 2-28 as ity of mL 00:00: directed [place] nebulizer 00 every 6 Medical solution (six) Branch hours as needed for Wheezing. albuterol 2017- Yes 2.5mg Use 0.5 mL U nivers 2.5 mg/0.5 2-28 as ity of mL 00:00: directed [place] nebulizer 00 every 6 Medical solution (six) Branch hours as needed for Wheezing. albuterol 2018-0 Yes 2.5mg Use 0.5 mL U nivers 2.5 mg/0.5 2-28 as ity of mL 00:00: directed [place] nebulizer 00 every 6 Medical solution (six) Branch hours as needed for Wheezing. albuterol 2017-0 Yes 2.5mg Use 0.5 mL U nivers 2.5 mg/0.5 2-28 as ity of mL 00:00: directed [place] nebulizer 00 every 6 Medical solution (six) Branch hours as needed for Wheezing. albuterol 2018-0 Yes 2.5mg Use 0.5 mL U nivers 2.5 mg/0.5 2-28 as ity of mL 00:00: directed [place] nebulizer 00 every 6 Medical solution (six) Branch hours as needed for Wheezing. albuterol 2018-0 Yes 2.5mg Use 0.5 mL U nivers 2.5 mg/0.5 2-28 as ity of mL 00:00: directed [place] nebulizer 00 every 6 Medical solution (six) Branch hours as needed for Wheezing. albuterol 2018-0 Yes 2.5mg Use 0.5 mL U nivers 2.5 mg/0.5 2-28 as ity of mL 00:00: directed [place] nebulizer 00 every 6 Medical solution (six) Branch hours as needed for Wheezing. albuterol 2018-0 Yes 2.5mg Use 0.5 mL U nivers 2.5 mg/0.5 2-28 as ity of mL 00:00: directed [place] nebulizer 00 every 6 Medical solution (six) Branch hours as needed for Wheezing. albuterol 2018-0 Yes 2.5mg Use 0.5 mL U nivers 2.5 mg/0.5 2-28 as ity of mL 00:00: directed [place] nebulizer 00 every 6 Medical solution (six) Branch hours as needed for Wheezing. albuterol 2018-0 Yes 2.5mg Use 0.5 mL U nivers 2.5 mg/0.5 2-28 as ity of mL 00:00: directed [place] nebulizer 00 every 6 Medical solution (six) Branch hours as needed for Wheezing. albuterol 2018-0 Yes 2.5mg Use 0.5 mL U nivers 2.5 mg/0.5 2-28 as ity of mL 00:00: directed [place] nebulizer 00 every 6 Medical solution (six) Branch hours as needed for Wheezing. albuterol 2018-0 Yes 2.5mg Use 0.5 mL U nivers 2.5 mg/0.5 2-28 as ity of mL 00:00: directed [place] nebulizer 00 every 6 Medical solution (six) Branch hours as needed for Wheezing. albuterol 2018-0 Yes 2.5mg Use 0.5 mL U nivers 2.5 mg/0.5 2-28 as ity of mL 00:00: directed [place] nebulizer 00 every 6 Medical solution (six) Branch hours as needed for Wheezing. albuterol 2018-0 Yes 2.5mg Use 0.5 mL U nivers 2.5 mg/0.5 2-28 as ity of mL 00:00: directed [place] nebulizer 00 every 6 Medical solution (six) Branch hours as needed for Wheezing. albuterol 2017-0 Yes 2.5mg Use 0.5 mL U nivers 2.5 mg/0.5 2-28 as ity of mL 00:00: directed [place] nebulizer 00 every 6 Medical solution (six) Branch hours as needed for Wheezing. albuterol 2018-0 Yes 2.5mg Use 0.5 mL U nivers 2.5 mg/0.5 2-28 as ity of mL 00:00: directed [place] nebulizer 00 every 6 Medical solution (six) Branch hours as needed for Wheezing. Immunizations Ordered Filled Immunization Date Status Comments [facility] Immunization Name Name Influenza Virus 2018-08-02 Completed Universit y of Vaccine [place] .5 mL 00:00:00 [place] Medical IM 6+ MO Branch Influenza Virus 2018-08-02 Completed Universit y of Vaccine [place] .5 mL 00:00:00 [place] Medical IM 6+ MO Branch Influenza Virus 2018-08-02 Completed Universit y of Vaccine [place] .5 mL 00:00:00 [place] Medical IM 6+ MO Branch Influenza Virus 2018-08-02 Completed Universit y of Vaccine Quad .5 mL 00:00:00 [place] Medical IM 6+ MO Branch Influenza Virus 2018-08-02 Completed Universit y of Vaccine Quad .5 mL 00:00:00 [place] Medical IM 6+ MO Branch Influenza Virus 2018-08-02 Completed Universit y of Vaccine [place] .5 mL 00:00:00 [place] Medical IM 6+ MO Branch Influenza Virus 2018-08-02 Completed Universit y of Vaccine Quad .5 mL 00:00:00 [place] Medical IM 6+ MO Branch Influenza Virus 2018-08-02 Completed Universit y of Vaccine [place] .5 mL 00:00:00 [place] Medical IM 6+ MO Branch Influenza Virus 2018-08-02 Completed Universit y of Vaccine Quad .5 mL 00:00:00 [place] [facility] IM 6+ MO Branch Influenza Virus 2018-08-02 Completed Universit y of Vaccine Quad .5 mL 00:00:00 [place] [facility] IM 6+ MO Branch Influenza Virus 2018-08-02 Completed Universit y of Vaccine Quad .5 mL 00:00:00 [place] Medical IM 6+ MO Branch Influenza Virus 2018-08-02 Completed Universit y of Vaccine Quad .5 mL 00:00:00 [place] Medical IM 6+ MO Branch Influenza Virus 2018-08-02 Completed Universit y of Vaccine Quad .5 mL 00:00:00 [place] [facility] IM 6+ MO Branch Influenza Virus 2018-08-02 Completed Universit y of Vaccine [place] .5 mL 00:00:00 [place] [facility] IM 6+ MO Branch Influenza Virus 2018-08-02 Completed Universit y of Vaccine [place] .5 mL 00:00:00 [place] [facility] IM 6+ MO Branch Influenza Virus 2018-08-02 Completed Universit y of Vaccine [place] .5 mL 00:00:00 [facility] 6+ MO Branch TDAP 2018-06-19 Completed University of 00:00:00 [facility] [place] [facility] TDAP 2018-06-19 Completed University of 00:00:00 [facility] Branch TDAP 2018-06-19 Completed University of 00:00:00 [facility] [place] [facility] TDAP 2018-06-19 Completed University of 00:00:00 [facility] [place] [facility] TDAP 2018-06-19 Completed University of 00:00:00 [facility] [place] [facility] TDAP 2018-06-19 Completed University of 00:00:00 [facility] [place] [facility] TDAP 2018-06-19 Completed University of 00:00:00 [facility] [place] [facility] TDAP 2018-06-19 Completed University of 00:00:00 [facility] Branch TDAP 2018-06-19 Completed University of 00:00:00 [place] [facility] TDAP 2018-06-19 Completed University of 00:00:00 [facility] [place] [facility] TDAP 2018-06-19 Completed University of 00:00:00 [facility] [place] [facility] Tdap 2018-06-19 Completed University of 00:00:00 [facility] [place] [facility] TDAP 2018-06-19 Completed University of 00:00:00 [facility] [place] [facility] TDAP 2018-06-19 Completed University of 00:00:00 [facility] [place] [facility] Tdap 2018-06-19 Completed University of 00:00:00 [facility] [place] [facility] TDAP 2018-06-19 Completed University of 00:00:00 [facility] [place] [facility] PPD (TB) 2017-03-22 Completed University of 00:00:00 [facility] [place] [facility] PPD (TB) 2017-03-22 Completed University of 00:00:00 [facility] [place] [facility] PPD (TB) 2017-03-22 Completed University of 00:00:00 [facility] [place] [facility] PPD (TB) 2017-03-22 Completed University of 00:00:00 [facility] [place] [facility] PPD (TB) 2017-03-22 Completed University of 00:00:00 [facility] [place] [facility] PPD (TB) 2017-03-22 Completed University of 00:00:00 [facility] [place] [facility] PPD (TB) 2017-03-22 Completed University of 00:00:00 [facility] [place] [facility] PPD (TB) 2017-03-22 Completed University of 00:00:00 [facility] [place] [facility] PPD (TB) 2017-03-22 Completed University of 00:00:00 [facility] [place] [facility] PPD (TB) 2017-03-22 Completed University of 00:00:00 [facility] [place] [facility] PPD (TB) 2017-03-22 Completed University of 00:00:00 [facility] [place] [facility] PPD (TB) 2017-03-22 Completed University of 00:00:00 [facility] [place] [facility] PPD (TB) 2017-03-22 Completed University of 00:00:00 [facility] [place] [facility] PPD (TB) 2017-03-22 Completed University of 00:00:00 [facility] [place] [facility] PPD (TB) 2017-03-22 Completed University of 00:00:00 [facility] [place] [facility] PPD (TB) 2017-03-22 Completed University of 00:00:00 [facility] [place] [facility] Vital Signs Vital Name Observation Time Observation Value Comments Source Systolic blood 2022-09-21 20:36:00 118 mm[Hg] Univer sity of pressure [facility] [place] [facility] Diastolic blood 2022-09-21 20:36:00 78 mm[Hg] Unive rsity of pressure [facility] [place] [facility] Heart rate 2022-09-21 20:36:00 104 /min [facility] Body temperature 2022-09-21 20:36:00 36.61 Brisa [facility] Res[facility] 2022-09-21 20:36:00 18 /min [facility] Body height 2022-09-21 20:36:00 152.4 cm [facility] Body weight 2022-09-21 20:36:00 82.725 kg [facility] BMI 2022-09-21 20:36:00 35.62 kg/m2 [facility] [place] [facility] Systolic blood 2022-09-20 22:20:00 124 mm[Hg] Univer sity of pressure [place] [facility] Diastolic blood 2022-09-20 22:20:00 79 mm[Hg] Unive rsity of pressure [place] [facility] Heart rate 2022-09-20 22:20:00 69 /min [facility] [place] [facility] Respiratory rate 2022-09-20 22:20:00 18 /min Univ ersity of [place] [facility] Oxygen saturation in 2022-09-20 22:20:00 98 /min University of Arterial blood by [facility] [place] [facility] koffi Pulse oximetry Branch Body temperature 2022-09-20 14:24:00 36.72 Brisa Univ ersity of [place] [facility] Body height 2022-09-20 14:24:00 152.4 cm [facility] [place] [facility] Body weight 2022-09-20 14:24:00 81.647 kg [facility] [place] [facility] BMI 2022-09-20 14:24:00 35.15 kg/m2 [facility] [place] [facility] Heart rate 2021-11-10 01:00:00 91 /min [facility] [place] [facility] Body temperature 2021-11-10 01:00:00 37.94 Brisa Univ ersity [facility] [place] [facility] Oxygen saturation in 2021-11-10 01:00:00 99 /min University of Arterial blood by [place] Medi koffi Pulse oximetry Branch Systolic blood 2021-11-10 00:31:00 104 mm[Hg] Univer sity of pressure [place] [facility] Diastolic blood 2021-11-10 00:31:00 68 mm[Hg] Unive rsity of pressure [place] [facility] Respiratory rate 2021-11-10 00:31:00 18 /min Univ ersity of [place] [facility] Body height 2021-11-09 22:23:00 157.5 cm [facility] [place] [facility] Body weight 2021-11-09 22:23:00 72.576 kg [facility] [place] [facility] BMI 2021-11-09 22:23:00 29.26 kg/m2 [facility] [place] [facility] Systolic blood 2021-08-06 10:41:00 116 mm[Hg] Univer sity of pressure [place] [facility] Diastolic blood 2021-08-06 10:41:00 79 mm[Hg] Unive rsity of pressure [place] [facility] Heart rate 2021-08-06 10:41:00 88 /min [facility] [place] [facility] Respiratory rate 2021-08-06 10:41:00 22 /min Univ ersity [facility] [place] [facility] Oxygen saturation in 2021-08-06 10:41:00 97 /min University of Arterial blood by [facility] Pulse oximetry Branch Body temperature 2021-08-06 06:47:00 37.33 Brisa Univ ers[facility] [place] [facility] Body height 2021-08-06 06:47:00 149.9 cm [facility] [place] [facility] Body weight 2021-08-06 06:47:00 83.915 kg [facility] [place] [facility] BMI 2021-08-06 06:47:00 37.37 kg/m2 [facility] [place] [facility] Systolic blood 2021-02-16 21:26:00 125 mm[Hg] Univer sity of pressure [place] [facility] Diastolic blood 2021-02-16 21:26:00 87 mm[Hg] Unive rsity of pressure [place] [facility] Heart rate 2021-02-16 21:26:00 80 /min [facility] [place] [facility] Body temperature 2021-02-16 21:26:00 36.33 Brisa Univ [facility] [place] [facility] Respiratory rate 2021-02-16 21:26:00 16 /min Univ ers[facility] [place] [facility] Body weight 2021-02-16 21:26:00 81.194 kg [facility] [place] [facility] BMI 2021-02-16 21:26:00 36.09 kg/m2 [facility] [place] [facility] Oxygen saturation in 2021-02-16 21:26:00 99 /min University of Arterial blood by [facility] Pulse oximetry Branch Systolic blood 2021-01-29 16:17:00 112 mm[Hg] Univer sity of pressure [place] [facility] Diastolic blood 2021-01-29 16:17:00 79 mm[Hg] Unive rsity of pressure [place] [facility] Body temperature 2021-01-29 16:17:00 36.72 Brisa Univ ers[facility] [place] [facility] Respiratory rate 2021-01-29 16:17:00 18 /min Univ ersity [facility] [place] [facility] Oxygen saturation in 2021-01-29 16:17:00 100 /min University of Arterial blood by [place] [employer] koffi Pulse oximetry Branch Heart rate 2021-01-29 14:00:00 77 /min [facility] [place] [facility] Body weight 2021-01-28 08:45:00 84.959 kg [facility] [place] [facility] BMI 2021-01-28 08:45:00 37.76 kg/m2 [facility] [place] [facility] Body height 2021-01-27 20:48:00 150 cm [facility] [place] [facility] Body height 2021-01-27 20:48:00 150 cm [facility] [place] [facility] Body weight 2021-01-27 20:48:00 86.2 kg [facility] [place] [facility] BMI 2021-01-27 20:48:00 37.76 kg/m2 [facility] [place] [facility] Systolic blood 2021-01-27 20:05:00 108 mm[Hg] Univer sity of pressure [place] [facility] Diastolic blood 2021-01-27 20:05:00 67 mm[Hg] Unive rsity of pressure [place] [facility] Heart rate 2021-01-27 20:05:00 90 /min [facility] [place] [facility] Body temperature 2021-01-27 20:05:00 36.67 Brisa Univ [facility] [place] [facility] Respiratory rate 2021-01-27 20:05:00 20 /min Univ ers[facility] [place] [facility] Oxygen saturation in 2021-01-27 20:05:00 100 /min University of Arterial blood by [facility] [place] [facility] koffi Pulse oximetry Branch Systolic blood 2019-04-22 19:06:00 130 mm[Hg] Univer sity of pressure [place] [facility] Diastolic blood 2019-04-22 19:06:00 82 mm[Hg] Unive rsity of pressure [place] [facility] Heart rate 2019-04-22 19:06:00 84 /min [facility] [place] [facility] Body temperature 2019-04-22 19:06:00 36 Brisa Univ ers[facility] [place] [facility] Respiratory rate 2019-04-22 19:06:00 16 /min Univ ers[facility] [place] [facility] Body height 2019-04-22 19:06:00 152.4 cm [facility] [place] [facility] Body weight 2019-04-22 19:06:00 85.503 kg [facility] BMI 2019-04-22 19:06:00 36.81 kg/m2 [facility] Procedures Procedure Date / Time Performing Clinician Source Performed TOTAL BETA HCG ASSAY 2022-09-21 21:30:00 Jacqueline Villalobos Un [facility] CBC WITH DIFF 2022-09-21 21:30:00 Jacqueline Villalobos [facility] HEPATITIS B SURFACE 2022-09-21 21:30:00 Jacqueline Villalobos Uni [facility] HCV ANTIBODY 2022-09-21 21:30:00 Jacqueline Villalobos [facility] HB ABO GROUPING 2022-09-21 21:30:00 Jacqueline Villalobos [facility] HIV 1/2 AG-AB WITH REFLEX 2022-09-21 21:30:00 Jacqueline Villalobos [facility] PAP SMEAR-LIQUID BASED-CP 2022-09-21 21:30:00 Jacqueline Villalobos [facility] POCT TEST 2022-09-21 20:29:00 Jacqueline Villalobos [facility] POCT URINALYSIS W/O 2022-09-21 20:29:00 Jacqueline Villalobos Uni [facility] SPECIFIC GRAVITY [facility] ADC CLC OR LCC ONLY - WET 2022-09-20 22:24:00 Leeanna Naranjo Un [facility] US FIRST 2022-09-20 20:12:04 Lee Ann Hussein [facility] TRIMESTER LESS THAN 14 Medical B ranch WEEKS WITH TRANSVAGINAL URINALYSIS 2022-09-20 15:15:00 Lee Ann Hussein Hawkins o [facility] LIPASE 2022-09-20 15:11:00 Lee Ann Hussein [facility] TEST, SERUM 2022-09-20 15:11:00 Lee Ann Hussein [facility] COMP. METABOLIC PANEL 2022-09-20 15:11:00 Lee Ann Hussein [facility] ([id number]) [facility] TOTAL BETA HCG ASSAY 2022-09-20 15:11:00 Lee Ann Hussein [facility] CBC WITH DIFF 2022-09-20 15:11:00 Lee Ann Hussein Hawkins o [facility] PROTHROMBIN TIME / INR 2022-09-20 15:11:00 Lee Ann Hussein [facility] ACTIVATED PARTIAL THRMPLAS 2022-09-20 15:11:00 Lee Ann Hussein [facility] CONSENT/REFUSAL FOR 2022-09-20 14:05:15 Doctor Abad [facility] DIAGNOSIS AND TREATMENT [place] [facility] XR CHEST 1 VW 2021-11-09 23:31:00 Nhung [facility] CBC WITH DIFF 2021-11-09 23:31:00 Nhung [facility] POCT TEST 2021-11-09 23:21:00 Misty Hooker [facility] URINALYSIS 2021-11-09 23:19:00 Nhung [facility] RAPID INFLUENZA A/B 2021-11-09 23:19:00 Misty Hooker [facility] COVID-19 (ID NOW RAPID 2021-11-09 23:19:00 Misty Hooker [facility] TESTING) Medical Branch LIPASE 2021-11-09 23:13:00 Nhung [facility] COMP. METABOLIC PANEL 2021-11-09 23:13:00 Misty Hooker [facility] ([id number]) [facility] NOTICE OF PRIVACY 2021-11-09 22:13:35 Doctor Abad [facility] PRACTICES [facility] CONSENT/REFUSAL FOR 2021-11-09 22:13:21 Doctor Abad [facility] DIAGNOSIS AND TREATMENT [facility] XR CHEST 1 VW 2021-08-06 09:20:00 Otilia Britton [facility] o [facility] RAPID INFLUENZA A/B 2021-08-06 08:25:00 Otilia Britton [facility] COVID-19 (ID NOW RAPID 2021-08-06 08:25:00 [facility] TESTING [facility] [place] BASIC METABOLIC PANEL (NA, 2021-01-29 10:37:00 [facility], CO2, GLUCOSE, BUN, Valeria [facility] CREATININE, [place]) CBC WITH DIFF 2021-01-29 10:37:00 [facility] 2021-01-29 03:57:00 Leeroy Mae [facility] BASIC METABOLIC PANEL (NA, 2021-01-28 10:27:00 [facility] K, CL, CO2, GLUCOSE, BUN, Medica l Branch CREATININE, CA) CBC WITH DIFF 2021-01-28 10:27:00 [facility] BASIC METABOLIC PANEL (NA, 2021-01-28 10:27[facility], CO2, GLUCOSE, BUN, Medica l Branch CREATININE, CA) CBC WITH DIFF 2021-01-28 10:27:00 [facility] 2021-01-27 21:23:47 Gian Negrete [facility] ASPIRATE OR ABSCESS 2021-01-27 21:22:56 Penny Holcomb [facility] CULTURE(AEROBIC/ANAEROBIC) Medic ia Branch ASPIRATE OR ABSCESS 2021-01-27 21:22:56 Penny Holcomb [facility] CULTURE(AEROBIC/ANAEROBIC) Medic ia Branch INCISION AND DRAINAGE 2021-01-27 20:50:00 [facility] INCISION AND DRAINAGE 2021-01-27 20:50:00 [facility] XR CHEST 1 VW 2021-01-27 05:56:[facility]W 2021-01-27 05:56:15 [facility] LACT[facility] ACID WHOLE BLOOD 2021-01-27 05:47:00 Otliia Britton [facility] LACTIC ACID WHOLE BLOOD 2021-01-27 05:47:00 Otilia Britton [facility] COVID-19 (ID NOW RAPID 2021-01-27 04:33:00 Otilia Britton [facility] TESTING) Medical Branch COVID-19 (ID NOW RAPID 2021-01-27 04:33:00 Otilia Britton [facility] TESTING) Medical Branch CT PELVIS W CONTRAST 2021-01-27 02:56:37 Otilia Britton [facility] CT PELVIS W CONTRAST 2021-01-27 02:56:37 Otilia Britton [facility] POCT TEST 2021-01-27 02:30:00 Otilia Britton [facility] POCT TEST 2021-01-27 02:30:00 Otilia Britton [facility] BLOOD CULTURE SCREEN 2021-01-27 02:20:00 Otilia Britton [facility] BLOOD CULTURE SCREEN 2021-01-27 02:20:00 Otilia Britton [facility] HEPATIC FUNCTION PANEL 2021-01-27 02:09:00 [facility] ([id number]) (ALB,T.PRO,[facility] [place] T,BU/BC,ALT,AST,ALK PHOS) BASIC METABOLIC PANEL (NA, 2021-01-27 02:09:00 Otilia Britton [facility] K, CL, CO2, GLUCOSE, BUN, Medica l Branch CREATININE, CA) CBC WITH DIFF 2021-01-27 02:09:00 Otilia Britton [place] o f [facility] [place] [facility] LACTIC ACID WHOLE BLOOD 2021-01-27 02:09:00 Otilia Britton [facility] HEPATIC FUNCTION PANEL 2021-01-27 02:09:00 [facility] ([id number]) (ALB,T.PRO,[facility] T,BU/BC,ALT,AST,ALK PHOS) BASIC METABOLIC PANEL (NA, 2021-01-27 02:09:00 Otilia Britton [facility] K, CL, CO2, GLUCOSE, BUN, Medica l Branch CREATININE, CA) CBC WITH DIFF 2021-01-27 02:09:00 Otilia Britton Hawkins o f [facility] LACTIC ACID WHOLE BLOOD 2021-01-27 02:09:00 Otilia Britton [facility] BLOOD CULTURE SCREEN 2021-01-27 02:08:00 Otilia Britton [facility] BLOOD CULTURE SCREEN 2021-01-27 02:08:00 Otilia Britton [facility] CONSENT/REFUSAL FOR 2021-01-27 01:14:15 Doctor Unassigned, [facility] DIAGNOSIS AND TREATMENT [facility] CONSENT/REFUSAL FOR 2021-01-27 01:14:15 Doctor Unassigned, [facility] DIAGNOSIS AND TREATMENT [facility] NOTICE OF PRIVACY 2021-01-27 01:13:39 Doctor Unaelena, [facility] NOTICE OF PRIVACY 2021-01-27 01:13:39 Doctor Unasstyrone, [facility] POCT TEST 2019-04-22 23:07:00 Jacqueline [facility] NO SHOW OR MISSED 2019-04-22 18:55:00 Doctor Abad, [facility] APPOINTMENT POLICY [facility] h ACKNOWLEDGEMENT Encounters Start End Encounter Admission Attending Care Care Encounter Source Date/Time Date/Time Type Type Clinicians Facility Department ID 2021-06-27 Emergency [facility] [id number] [facility] 2022-10-20 Outpatient R WILFREDO [facility] [id number] [facility] 09:00:00 09:00:00 JACQUELINE ny o f [facility] 2022-09-23 2022-09-23 Telephone Wilfredo [facility] 1.2.840.114 [id number] [facility] 00:00:00 00:00:00 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 350.1.13.10 ity [facility] 4.2.7.2.686 Indra as MATERNAL [phone] Med ical & CHILD [address] [place] [address] 2022-09-22 2022-09-22 Outpatient R AKINSIPE, [facility] [id number] [facility] 08:30:00 08:30:00 JACQUELINE natashay o f [facility] 2022-09-21 2022-09-21 Outpatient R AKINSIPE, [facility] [id number] [facility] 14:15:00 15:35:56 JACQUELINE ity o f [facility] 2022-09-21 2022-09-21 Initial Akinsipe, [facility] [id number] Univers 14:15:00 15:35:56 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 350.1.13.10 ity of Visit [facility] 4.2.7.2.686 Indra as MATERNAL [phone] [facility] & [address] 2022-09-20 2022-09-20 Emergency X KEENAN [facility] ERT [id number] Univers 08:20:00 16:48:00 LEE ANN ny [facility] 2022-09-20 2022-09-20 [facility] [id number] Univers 08:20:00 16:48:00 Lee Ann [place] 350.1.13.10 i ty of [place] 4.2.7.2.686 [facility] [id number] [address] 2021-11-09 2021-11-09 Emergency X NHUNG, [facility] ERT [id number] Univers 17:29:00 20:21:00 MISTY itjose [facility] 2021-11-09 2021-11-09 Emergency Hooker, [facility] [id number] Univers 17:29:00 20:21:00 Misty [place] 350.1.13.10 i ty of [place] 4.2.7.2.686 [facility] [id number] [address] 2021-10-23 2021-10-23 Outpatient R HUGGINS, [facility] [id number] Univers 09:30:00 09:30:00 WYATT ny o f [facility] 2021-08-06 2021-08-06 Emergency [facility] [id number] Univers 00:30:00 04:47:00 OTILIA natashajose of [facility] 2021-08-06 2021-08-06 Emergency [facility] [id number] Univers 00:30:00 04:47:00 Otilia S DARRIUS 350.1.13.10 i ty of [place] [phone] [facility] [address] 2021-02-16 2021-02-16 Outpatient R ZHANG [facility] [id number] Univers 16:00:00 17:01:15 PENNY yanely [facility] 2021-02-16 2021-02-16 [facility] [id number] Univers 15:56:33 17:01:15 Visit Penny Donnelly 350.1.13.10 i [place] [phone] [facility] [address] [facility] 2021-02-03 2021-02-03 Patient Elena Gaines Jf 1.2.840.114 [id number] Univers 00:00:00 00:00:00 Outreach E Duncan 350.1.13.10 i ty [place] [id number] [facility] [address] 2021-02-01 2021-02-01 Transition Jf Julio 1.2.840.114 [id number] Univers 00:00:00 00:00:00 of Care Yaima Moody 350.1.13.10 ity [place] [id number] [facility] [address] 2021-01-26 2021-01-29 Hospital Otilia Britton [facility] 1.2.840.11 [id number] Univers 20:38:00 12:24:00 Encounter Rosendo Vance 350.1.13.10 it[place] [id number] [facility] [address] 2021-01-27 2021-01-27 Anesthesia Abel, [facility] 1.2.840.114 [id number] Univers 15:57:00 16:36:00 Event Toby Donnelly 350.1.13.10 [place] [id number] [facility] [address] 2021-01-27 2021-01-27 Surgery Zhang, [facility] [id number] Univers 15:30:00 16:29:00 Penny Donnelly 350.1.13.10 [place] [id number] [address] 2019-04-22 2019-04-22 Nurse Visit, Sravani Nurse [facility] 1.2 .840.114 [id number] Univers 13:54:22 14:17:45 Visit Jacqueline 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 10 ity of [facility] 4.2.7.2.686 Indra as MATERNAL [phone] [facility] & CHILD [address] [place] [address] 2019-04-22 2019-04-22 Orders Doctor HOMERO 1.2.840.114 [id number] Univers 00:00:00 00:00:00 Only Unassigned, TONIO 350.1.13.10 ity of [facility] 4.2.7.2.686 Indra as [phone] [facility] [address] Results Test Description Test Time Test Comments Results Result Comments Source HIV 1/2 AG-AB WITH REFLEX 2022-09-22 11:31:52 Test Item Value Reference Range Interpretation Comme nts HIV Semi-quantitative (test code = Negative Negative 68267-9) ASHLEE (test code = ASHLEE) Non-reactive for HIV-1 antigen and HIV-1/HIV-2 antibodies. ?No laboratory evidence of HIV infection. ?Repeat in 2-4 weeks if acute HIV infection is suspected. [facility], BLOOD [id number] 10:13:07 Test Item Value Reference Range Interpretation Comments ABO & RH (test code O POSITIVE Performe d at [facility] = 20) Laboratory Serv [facility] 01 [facility] s [address]Mjqf Free: [phone] A No. [id number] IAT (test code = Negative Performed a t [facility] 1185) Laboratory Serv [facility] s [id number] Free: [phone] A No. [id number] [facility] CampusHCV [id number] 08:18:32 Test Item Value Reference Range Interpretation Comments HCV Ab (test code = 17163-0) Negative HCV Semi-Quantitative (test code = 26367-0) [facility]HEPAT[facility]IS B SURFACE [id number] 08:01:30 Test Item Value Reference Range Interpretation Comments HBsAg Semi-Quantitative (test code = Negative Negative 5195-3) [facility] BETA HCG [id number] 07:56:47 Test Item Value Reference Range Interpretation Comments BETA HCG (test See_Comment [Automated m essage] code = The system [employer] [id number]) generated this result transmit mariah reference range : Non- fe male and male patien ts: <5 mIU/mL. The reference range was not used to interpret this result as normal/abnormal . ASHLEE (test code Gestational Age ? ? = ASHLEE) ?Range (mIU/mL) 1-10 ?Weeks ?98-29635191-60 Weeks ?26299-93345425-69 Weeks ?6509-65035546-23 Weeks ?6446-676006 Biotin has been reported to cause a negative bias, interpret results relative to patient's use of biotin. [facility] WITH [id number] 06:34:02 Test Item Value Reference Range Interpretation Comments WBC (test code = See_Comment [Automated 1867-2) message] The sy stem which generated this result transmitted reference range : 4.30 - 11.10 10*3/?L. The reference range was not used to interpret this result as normal/abnormal . RBC (test code = See_Comment [Automated 789-8) message] The sy stem which generated this result transmitted reference range : 3.93 - 5.25 10*6/?L. The reference range was not used to interpret this result as normal/abnormal . HGB (test code = 9.9 g/dL 11.6-15.0 L 718-7) HCT (test code = 32.7 % 35.7-45.2 L 4544-3) MCV (test code = 77.5 fL 80.6-95.5 L 787-2) MCH (test code = 23.5 pg 25.9-32.8 L 785-6) MCHC (test code = 30.3 g/dL 31.6-35.1 L 786-4) RDW-SD (test code = 48.1 fL 39.0-49.9 92644-4) RDW-CV (test code = 17.2 % 12.0-15.5 H 788-0) PLT (test code = See_Comment [Automated 777-3) message] The sy stem which generated this result transmitted reference range : 166 - 358 10*3/ ?L. The reference r funmi was not used to interpret this result as normal/abnormal . MPV (test code = 11.3 fL 9.5-12.9 96833-0) NRBC/100 WBC (test See_Comment [Automat ed code = 9834211298) message] The system which generated this result transmitted reference range : 0.0 - 10.0 /100 WBCs. The refer ence range was not u sed to interpret th is result as normal/abnormal . NRBC x10^3 (test code See_Comment [Auto mated = 5567886481) message] The s ystem which generated this result transmitted reference range : 10*3/?L. The reference range was not used to interpret this result as normal/abnormal . GRAN MAT (NEUT) % 70.4 % (test code = 770-8) IMM GRAN % (test code 0.60 % = 3979538093) LYMPH % (test code = 21.6 % 736-9) MONO % (test code = 5.7 % 5905-5) EOS % (test code = 1.1 % 713-8) BASO % (test code = 0.6 % 706-2) GRAN MAT x10^3(ANC) 7.10 10*3/uL 1.88-7.09 H (test code = 5004581021) IMM GRAN x10^3 (test 0.06 10*3/uL 0.00-0.06 code = 8206666403) LYMPH x10^3 (test code 2.18 10*3/uL 1.32-3.29 = 731-0) MONO x10^3 (test code 0.57 10*3/uL 0.33-0.92 = 742-7) EOS x10^3 (test code = 0.11 10*3/uL 0.03-0.39 711-2) BASO x10^3 (test code 0.06 10*3/uL 0.01-0.07 = 704-7) Lab Interpretation Abnormal (test code = 60304-1) [facility] URINALYSIS W/O SPECIFIC [id number] 20:30:00 Test Item Value Reference Range Interpretation Comments POCT PH U (test code = 3254) 5 mg/dl 5-8 POCT U LEUK EST (test code = 1+ Negative - Negative 3263) POCT U NIT (test code = 3262) Pos Negative - Negative POCT U PROT (test code = 3259) Trace Negative - Negative POCT U GLU (test code = 3256) Neg Negative - Negative POCT U KETONE (test code = 3258) Small Negative - Negative POCT U BLD (test code = 3257) Large Negative - Negative [facility] URINALYSIS W/O SPECIFIC [id number] 20:30:00 Test Item Value Reference Range Interpretation Comments POCT PH U (test code = 3254) 5 mg/dl 5-8 POCT U LEUK EST (test code = 1+ Negative - Negative 3263) POCT U NIT (test code = 3262) Pos Negative - Negative POCT U PROT (test code = 3259) Trace Negative - Negative POCT U GLU (test code = 3256) Neg Negative - Negative POCT U KETONE (test code = 3258) Small Negative - Negative POCT U BLD (test code = 3257) Large Negative - Negative [facility] [id number] 20:29:00 Test Item Value Reference Range Interpretation Comments POCT PREG (test code = 1605) Positive On board controls acceptable with C Yes Line (test code = 3574) POCT PREG LOT # (test code = 3575) POCT PREG TEST DATE (test code = 3576) [facility]PO[facility] [id number] 20:29:00 Test Item Value Reference Range Interpretation Comments POCT PREG (test code = 1605) Positive On board controls acceptable with C Yes Line (test code = 3574) POCT PREG LOT # (test code = 3575) POCT PREG TEST DATE (test code = 3576) [facility] CampusTOTAL BHCG (QUANTITATIVE)2022-09-20 17:15:40 Test Item Value Reference Range Interpretation Comments BETA HCG (test See_Comment [Automated m essage] code = The system [employer] 9316429402) generated this result transmit mariah reference range : Non- fe male and male patien ts: <5 mIU/mL. The reference range was not used to interpret this result as normal/abnormal . ASHLEE (test code Gestational Age ? ? = ASHLEE) ?Range (mIU/mL) 1-10 ?Weeks ?68-02425499-02 Weeks ?09532-76473953-04 Weeks ?5923-41911057-01 Weeks ?1530-254206 Biotin has been reported to cause a negative bias, interpret results relative to patient's use of biotin. [facility] CampusPREGNANCY TEST, [id number] 16:16:57 Test Item Value Reference Range Interpretation Comments PREG SERUM (test code Positive = 0488092974) ASHLEE (test code = ASHLEE) Positive greater than or equal to 10 IU/L hCG. [facility] CampusACTIVATED PARTIAL THRMPLAS [id number] 16:14:06 Test Item Value Reference Range Interpretation Comments APTT Patient (test See_Comment [Automat ed code = 3173-2) message] The system which generated this result transmitted reference range : 23 - 38 Seconds . The reference range was not used to interpr et this result as normal/abnormal . ASHLEE (test code = ASHLEE) The [facility] patient population mean normal value for aPTT is 30 seconds. Lab Interpretation Normal (test code = 93617-9) [facility] CampusPROTHROMBIN TIME / [id number] 16:12:09 Test Item Value Reference Range Interpretation Comments PROTIME PATIENT (test See_Comment [Auto mated message] code = 5964-2) The system [employer] generated this result transmitted ref erence range: 12.0 - 1 4.7 Seconds. The re ference range was not u sed to interpret this result as normal/abnor mal. INR (test code = 6301-6) Nor mal INR <1.1; Warfarin Therap eutic range 2.0 to 3. 0 or 2.5 to 3.5, dep ending upon the indica tions. Lab Interpretation (test Normal code = 07766-1) [facility] CampusCOMP. METABOLIC PANEL (54307)2022-09-20 15:58:03 Test Item Value Reference Range Interpretation Comments NA (test code = 136 mmol/L 135-145 4682976706) K (test code = 4.1 mmol/L 3.5-5.0 6324807846) CL (test code = 102 mmol/L 98-108 2174591539) CO2 TOTAL (test code = 25 mmol/L 23-31 1585777374) AGAP (test code = 2-16 3462092471) BUN (test code = 9 mg/dL 7-23 8800951962) GLUCOSE (test code = 94 mg/dL 70-110 7931888466) CREATININE (test code = 0.48 mg/dL 0.50-1.04 L 3423468795) TOTAL BILI (test code = 0.4 mg/dL 0.1-1.9 8792586283) CALCIUM (test code = 8.8 mg/dL 8.6-10.6 8011616353) T PROTEIN (test code = 7.4 g/dL 6.3-8.2 7620044708) ALBUMIN (test code = 4.5 g/dL 3.5-5.0 8359464070) ALK PHOS (test code = 77 U/L 34-122 3241641711) ALTv (test code = 15 U/L 5-35 2-6) AST(SGOT) (test code = 19 U/L 13-40 3965608116) eGFR (test code = mL/min/1.73m2 2249524098) ASHLEE (test code = ASHLEE) Association of Glomerular Filtration Rate (GFR) and Staging of Kidney Disease* + --+ --+ ------+| GFR (mL/min/1.73 m2) ?| With Kidney Damage ?| ?Without Kidney Damage+ --------+ --------+ +| ?>90 ?| ?Stage one ?| ? Normal ?+ ---+ ---+ -------+| ?60-89 ?| ?Stage two ?| ? Decreased GFR ? + --+ --+ ------+| ?30-59 ?| ?Stage three ?| ? Stage three ? + --+ --+ ------+| ?15-29 ?| ?Stage four ? | ? Stage four ?+ ---+ ---+ -------+| ?<15 (or dialysis) ? ?| ?Stage five ? | ? Stage five ?+ ---+ ---+ -------+ *Each stage assumes the associated GFR level has been in effect for at least three months. ?Stages 1 to 5, with or without kidney disease, indicate chronic kidney disease. Notes: Determination of stages one and two (with eGFR >59mL/min/1.73 m2) requires estimation of kidney damage for at least three months as defined by structural or functional abnormalities of the kidney, manifested by either:Pathological abnormalities or Markers of kidney damage (including abnormalities in the composition of the blood or urine or abnormalities in imaging tests). Lab Interpretation Abnormal (test code = 10024-4) [facility] CampusLIPASE2023-01-24 15:58:03 Test Item Value Reference Range Interpretation Comments LIPASE (test code = 9879086937) 74 U/L 0-220 Lab Interpretation (test code = Normal 83686-5) [facility] CampusCB WITH [id number] 15:56:47 Test Item Value Reference Range Interpretation Comments WBC (test code = See_Comment [Automated 8590-2) message] The sy stem which generated this result transmitted reference range : 4.30 - 11.10 10*3/?L. The reference range was not used to interpret this result as normal/abnormal . RBC (test code = See_Comment [Automated 789-8) message] The sy stem which generated this result transmitted reference range : 3.93 - 5.25 10*6/?L. The reference range was not used to interpret this result as normal/abnormal . HGB (test code = 10.4 g/dL 11.6-15.0 L 718-7) HCT (test code = 34.3 % 35.7-45.2 L 4544-3) MCV (test code = 76.9 fL 80.6-95.5 L 787-2) MCH (test code = 23.3 pg 25.9-32.8 L 785-6) MCHC (test code = 30.3 g/dL 31.6-35.1 L 786-4) RDW-SD (test code = 47.3 fL 39.0-49.9 24985-8) RDW-CV (test code = 17.0 % 12.0-15.5 H 788-0) PLT (test code = See_Comment [Automated 777-3) message] The sy stem which generated this result transmitted reference range : 166 - 358 10*3/ ?L. The reference r funmi was not used to interpret this result as normal/abnormal . MPV (test code = 10.5 fL 9.5-12.9 36802-0) NRBC/100 WBC (test See_Comment [Automat ed code = 7457049632) message] The system which generated this result transmitted reference range : 0.0 - 10.0 /100 WBCs. The refer ence range was not u sed to interpret th is result as normal/abnormal . NRBC x10^3 (test code See_Comment [Auto mated = 0832404022) message] The s ystem which generated this result transmitted reference range : 10*3/?L. The reference range was not used to interpret this result as normal/abnormal . GRAN MAT (NEUT) % 58.6 % (test code = 770-8) IMM GRAN % (test code 0.80 % = 6486431197) LYMPH % (test code = 30.9 % 736-9) MONO % (test code = 6.6 % 5905-5) EOS % (test code = 2.4 % 713-8) BASO % (test code = 0.7 % 706-2) GRAN MAT x10^3(ANC) 5.29 10*3/uL 1.88-7.09 (test code = 8637590867) IMM GRAN x10^3 (test 0.07 10*3/uL 0.00-0.06 H code = 4092287687) LYMPH x10^3 (test code 2.79 10*3/uL 1.32-3.29 = 731-0) MONO x10^3 (test code 0.60 10*3/uL 0.33-0.92 = 742-7) EOS x10^3 (test code = 0.22 10*3/uL 0.03-0.39 711-2) BASO x10^3 (test code 0.06 10*3/uL 0.01-0.07 = 704-7) Lab Interpretation Abnormal (test code = 70189-1) [facility] WITH [id number] 23:41:07 Test Item Value Reference Range Interpretation Comments WBC (test code = See_Comment [Automated 5890-2) message] The sy stem which generated this result transmitted reference range : 4.30 - 11.10 10*3/?L. The reference range was not used to interpret this result as normal/abnormal . RBC (test code = See_Comment [Automated 269-8) message] The sy stem which generated this result transmitted reference range : 3.93 - 5.25 10*6/?L. The reference range was not used to interpret this result as normal/abnormal . HGB (test code = 9.1 g/dL 11.6-15.0 L 718-7) HCT (test code = 30.0 % 35.7-45.2 L 4544-3) MCV (test code = 74.8 fL 80.6-95.5 L 787-2) MCH (test code = 22.7 pg 25.9-32.8 L 785-6) MCHC (test code = 30.3 g/dL 31.6-35.1 L 786-4) RDW-SD (test code = 40.8 fL 39.0-49.9 08785-5) RDW-CV (test code = 15.0 % 12.0-15.5 788-0) PLT (test code = See_Comment H [Automated 777-3) message] The sy stem which generated this result transmitted reference range : 166 - 358 10*3/ ?L. The reference r funmi was not used to interpret this result as normal/abnormal . MPV (test code = 10.5 fL 9.5-12.9 22315-6) NRBC/100 WBC (test See_Comment [Automat ed code = 3675390913) message] The system which generated this result transmitted reference range : 0.0 - 10.0 /100 WBCs. The refer ence range was not u sed to interpret th is result as normal/abnormal . NRBC x10^3 (test code <0.01 See_Comment [Auto mated = 7069320261) message] The s ystem which generated this result transmitted reference range : 10*3/?L. The reference range was not used to interpret this result as normal/abnormal . GRAN MAT (NEUT) % 83.2 % (test code = 770-8) IMM GRAN % (test code 0.60 % = 5961326380) LYMPH % (test code = 8.5 % 736-9) MONO % (test code = 6.6 % 5905-5) EOS % (test code = 0.8 % 713-8) BASO % (test code = 0.3 % 706-2) GRAN MAT x10^3(ANC) 7.73 10*3/uL 1.88-7.09 H (test code = 8468059239) IMM GRAN x10^3 (test 0.06 10*3/uL 0.00-0.06 code = 0830746074) LYMPH x10^3 (test code 0.79 10*3/uL 1.32-3.29 L = 731-0) MONO x10^3 (test code 0.61 10*3/uL 0.33-0.92 = 742-7) EOS x10^3 (test code = 0.07 10*3/uL 0.03-0.39 711-2) BASO x10^3 (test code 0.03 10*3/uL 0.01-0.07 = 704-7) Lab Interpretation Abnormal (test code = 20490-9) [facility] (20415[facility]2021-11-09 23:32:45 Test Item Value Reference Range Interpretation Comments NA (test code = 135 mmol/L 135-145 4048510207) K (test code = 4.3 mmol/L 3.5-5.0 0384764690) CL (test code = 100 mmol/L 98-108 1337264610) CO2 TOTAL (test code 26 mmol/L 23-31 = 3899052524) AGAP (test code = 2-16 4268862220) BUN (test code = 8 mg/dL 7-23 2945767263) GLUCOSE (test code = 98 mg/dL 70-110 7836133144) CREATININE (test code 0.56 mg/dL 0.50-1.04 = 0693211269) TOTAL BILI (test code 0.5 mg/dL 0.1-1.1 = 5437630144) CALCIUM (test code = 8.7 mg/dL 8.6-10.6 2955985330) T PROTEIN (test code 7.7 g/dL 6.3-8.2 = 2771718890) ALBUMIN (test code = 4.7 g/dL 3.5-5.0 8134338639) ALK PHOS (test code = 82 U/L 34-122 3423458344) ALTv (test code = 14 U/L 5-35 1742-6) AST(SGOT) (test code 34 U/L 13-40 = 5077712515) eGFR (test code = mL/min/1.73m2 5110711725) ASHLEE (test code = ASHLEE) Association of Glomerular Filtration Rate (GFR) and Staging of Kidney Disease* + + +- +| GFR (mL/min/1.73 m2) ?| With Kidney Damage ?| ?Without Kidney Damage+ ------+ ----+ ------+| ?>90 ?| ?Stage one ?| ? Normal ?+ -+ + -+| ?60-89 ?| ?Stage two ?| ? Decreased GFR ? + + +- +| ?30-59 ?| ?Stage three ?| ? Stage three ? + + +- +| ?15-29 ?| ?Stage four ? | ? Stage four ?+ -+ + -+| ?<15 (or dialysis) ? ?| ?Stage five ? | ? Stage five ?+ -+ + -+ *Each stage assumes the associated GFR level has been in effect for at least three months. ?Stages 1 to 5, with or without kidney disease, indicate chronic kidney disease. Notes: Determination of stages one and two (with eGFR >59mL/min/1.73 m2) requires estimation of kidney damage for at least three months as defined by structural or functional abnormalities of the kidney, manifested by either:Pathological abnormalities or Markers of kidney damage (including abnormalities in the composition of the blood or urine or abnormalities in imaging tests). [facility]2022-03-15 23:32:25 Test Item Value Reference Range Interpretation Comments LIPASE (test code = 4104023162) 70 U/L 0-220 Lab Interpretation (test code = Normal 00304-7) [facility] [id number] 23:21:00 Test Item Value Reference Range Interpretation Comments POCT PREG (test code = 1605) NEGATIVE On board controls acceptable with PRESENT C Line (test code = 3574) POCT PREG LOT # (test code = 3575) [id number] POCT PREG TEST DATE (test code = 3576) Lab Interpretation (test code = Normal 17519-3) [facility]BASIC METABOLIC PANEL (NA, K, CL, CO2, GLUCOSE, BUN, CREATININE, CA)2021-01-29 11:56:16 Test Item Value Reference Range Interpretation Comments NA (test code = 140 mmol/L 135-145 0792329253) K (test code = 3.4 mmol/L 3.5-5.0 L 8346191098) CL (test code = 106 mmol/L 98-108 8327498144) CO2 TOTAL (test code = 27 mmol/L 23-31 8256797032) AGAP (test code = 2-16 5812873227) BUN (test code = 12 mg/dL 7-23 7148873962) GLUCOSE (test code = 90 mg/dL 70-110 3151169307) CREATININE (test code = 0.88 mg/dL 0.50-1.04 9077835816) CALCIUM (test code = 8.6 mg/dL 8.6-10.6 8051152386) eGFR (test code = mL/min/1.73m2 4465792758) ASHLEE (test code = ASHLEE) Association of Glomerular Filtration Rate (GFR) and Staging of Kidney Disease* + --+ --+ ------+| GFR (mL/min/1.73 m2) ?| With Kidney Damage ?| ?Without Kidney Damage+ --------+ --------+ +| ?>90 ?| ?Stage one ?| ? Normal ?+ ---+ ---+ -------+| ?60-89 ?| ?Stage two ?| ? Decreased GFR ? + --+ --+ ------+| ?30-59 ?| ?Stage three ?| ? Stage three ? + --+ --+ ------+| ?15-29 ?| ?Stage four ? | ? Stage four ?+ ---+ ---+ -------+| ?<15 (or dialysis) ? ?| ?Stage five ? | ? Stage five ?+ ---+ ---+ -------+ *Each stage assumes the associated GFR level has been in effect for at least three months. ?Stages 1 to 5, with or without kidney disease, indicate chronic kidney disease. Notes: Determination of stages one and two (with eGFR >59mL/min/1.73 m2) requires estimation of kidney damage for at least three months as defined by structural or functional abnormalities of the kidney, manifested by either:Pathological abnormalities or Markers of kidney damage (including abnormalities in the composition of the blood or urine or abnormalities in imaging tests). Lab Interpretation Abnormal (test code = 19438-0) [facility] WITH [id number] 11:26:15 Test Item Value Reference Range Interpretation Comments WBC (test code = See_Comment [Automated 0490-2) message] The sy stem which generated this result transmitted reference range : 4.30 - 11.10 10*3/?L. The reference range was not used to interpret this result as normal/abnormal . RBC (test code = See_Comment L [Automated 739-8) message] The sy stem which generated this result transmitted reference range : 3.93 - 5.25 10*6/?L. The reference range was not used to interpret this result as normal/abnormal . HGB (test code = 8.8 g/dL 11.6-15.0 L 718-7) HCT (test code = 27.9 % 35.7-45.2 L 4544-3) MCV (test code = 83.0 fL 80.6-95.5 787-2) MCH (test code = 26.2 pg 25.9-32.8 785-6) MCHC (test code = 31.5 g/dL 31.6-35.1 L 786-4) RDW-SD (test code = 42.7 fL 39.0-49.9 58058-5) RDW-CV (test code = 14.1 % 12.0-15.5 788-0) PLT (test code = See_Comment [Automated 777-3) message] The sy stem which generated this result transmitted reference range : 166 - 358 10*3/ ?L. The reference r funmi was not used to interpret this result as normal/abnormal . MPV (test code = 10.5 fL 9.5-12.9 59888-4) NRBC/100 WBC (test See_Comment [Automat ed code = 6494957833) message] The system which generated this result transmitted reference range : 0.0 - 10.0 /100 WBCs. The refer ence range was not u sed to interpret th is result as normal/abnormal . NRBC x10^3 (test code <0.01 See_Comment [Auto mated = 6927707930) message] The s ystem which generated this result transmitted reference range : 10*3/?L. The reference range was not used to interpret this result as normal/abnormal . GRAN MAT (NEUT) % 68.3 % (test code = 770-8) IMM GRAN % (test code 0.70 % = 6085283129) LYMPH % (test code = 19.6 % 736-9) MONO % (test code = 7.1 % 5905-5) EOS % (test code = 3.8 % 713-8) BASO % (test code = 0.5 % 706-2) GRAN MAT x10^3(ANC) 6.23 10*3/uL 1.88-7.09 (test code = 0264603192) IMM GRAN x10^3 (test 0.06 10*3/uL 0.00-0.06 code = 6648296221) LYMPH x10^3 (test code 1.79 10*3/uL 1.32-3.29 = 731-0) MONO x10^3 (test code 0.65 10*3/uL 0.33-0.92 = 742-7) EOS x10^3 (test code = 0.35 10*3/uL 0.03-0.39 711-2) BASO x10^3 (test code 0.05 10*3/uL 0.01-0.07 = 704-7) Lab Interpretation Abnormal (test code = 68347-9) [facility] - Draw no more than 60 minutes before the 1100 dose.2021-01-29 05:02:45 Test Item Value Reference Range Interpretation Comments VANCO TROUGH (test code 7.6 ug/mL 10.0-20.0 L = 4803345120) ASHLEE (test code = ASHLEE) Toxic Range: ?>20 ug/mL 15-20 ug/mL is recommended for severe infection or when Vancomycin AURA is greater than or equal to 2. Lab Interpretation (test Abnormal code = 68436-9) [facility] Met[facility] (NA, K, CL, CO2, GLUCOSE, BUN, CREATININE, CA)2021-01-28 11:50:40 Test Item Value Reference Range Interpretation Comments NA (test code = 138 mmol/L 135-145 4062069807) K (test code = 4.2 mmol/L 3.5-5.0 4752766707) CL (test code = 104 mmol/L 98-108 7482742747) CO2 TOTAL (test code = 25 mmol/L 23-31 4507295297) AGAP (test code = 2-16 2468544888) BUN (test code = 7 mg/dL 7-23 1296588208) GLUCOSE (test code = 147 mg/dL 70-110 H 1230009658) CREATININE (test code = 0.44 mg/dL 0.50-1.04 L 7386466186) CALCIUM (test code = 9.0 mg/dL 8.6-10.6 2972480768) eGFR (test code = mL/min/1.73m2 0141485963) ASHLEE (test code = ASHLEE) Association of Glomerular Filtration Rate (GFR) and Staging of Kidney Disease* + --+ --+ ------+| GFR (mL/min/1.73 m2) ?| With Kidney Damage ?| ?Without Kidney Damage+ --------+ --------+ +| ?>90 ?| ?Stage one ?| ? Normal ?+ ---+ ---+ -------+| ?60-89 ?| ?Stage two ?| ? Decreased GFR ? + --+ --+ ------+| ?30-59 ?| ?Stage three ?| ? Stage three ? + --+ --+ ------+| ?15-29 ?| ?Stage four ? | ? Stage four ?+ ---+ ---+ -------+| ?<15 (or dialysis) ? ?| ?Stage five ? | ? Stage five ?+ ---+ ---+ -------+ *Each stage assumes the associated GFR level has been in effect for at least three months. ?Stages 1 to 5, with or without kidney disease, indicate chronic kidney disease. Notes: Determination of stages one and two (with eGFR >59mL/min/1.73 m2) requires estimation of kidney damage for at least three months as defined by structural or functional abnormalities of the kidney, manifested by either:Pathological abnormalities or Markers of kidney damage (including abnormalities in the composition of the blood or urine or abnormalities in imaging tests). Lab Interpretation Abnormal (test code = 37774-4) [facility] Metabolic Panel (NA, K, CL, CO2, GLUCOSE, BUN, CREATININE, CA)2021-01-28 11:50:40 Test Item Value Reference Range Interpretation Comments NA (test code = 138 mmol/L 135-145 4716832703) K (test code = 4.2 mmol/L 3.5-5.0 2116437372) CL (test code = 104 mmol/L 98-108 4832107487) CO2 TOTAL (test code = 25 mmol/L 23-31 5789082410) AGAP (test code = 2-16 1514525780) BUN (test code = 7 mg/dL 7-23 4443681992) GLUCOSE (test code = 147 mg/dL 70-110 H 6657719771) CREATININE (test code = 0.44 mg/dL 0.50-1.04 L 4256885562) CALCIUM (test code = 9.0 mg/dL 8.6-10.6 9000683396) eGFR (test code = mL/min/1.73m2 0413981489) ASHLEE (test code = ASHLEE) Association of Glomerular Filtration Rate (GFR) and Staging of Kidney Disease* + --+ --+ ------+| GFR (mL/min/1.73 m2) ?| With Kidney Damage ?| ?Without Kidney Damage+ --------+ --------+ +| ?>90 ?| ?Stage one ?| ? Normal ?+ ---+ ---+ -------+| ?60-89 ?| ?Stage two ?| ? Decreased GFR ? + --+ --+ ------+| ?30-59 ?| ?Stage three ?| ? Stage three ? + --+ --+ ------+| ?15-29 ?| ?Stage four ? | ? Stage four ?+ ---+ ---+ -------+| ?<15 (or dialysis) ? ?| ?Stage five ? | ? Stage five ?+ ---+ ---+ -------+ *Each stage assumes the associated GFR level has been in effect for at least three months. ?Stages 1 to 5, with or without kidney disease, indicate chronic kidney disease. Notes: Determination of stages one and two (with eGFR >59mL/min/1.73 m2) requires estimation of kidney damage for at least three months as defined by structural or functional abnormalities of the kidney, manifested by either:Pathological abnormalities or Markers of kidney damage (including abnormalities in the composition of the blood or urine or abnormalities in imaging tests). Lab Interpretation Abnormal (test code = 59967-1) [facility] with [id number] 11:08:37 Test Item Value Reference Range Interpretation Comments WBC (test code = See_Comment H [Automated 5390-2) message] The sy stem which generated this result transmitted reference range : 4.30 - 11.10 10*3/?L. The reference range was not used to interpret this result as normal/abnormal . RBC (test code = See_Comment L [Automated 519-8) message] The sy stem which generated this result transmitted reference range : 3.93 - 5.25 10*6/?L. The reference range was not used to interpret this result as normal/abnormal . HGB (test code = 9.3 g/dL 11.6-15.0 L 718-7) HCT (test code = 29.8 % 35.7-45.2 L 4544-3) MCV (test code = 83.5 fL 80.6-95.5 787-2) MCH (test code = 26.1 pg 25.9-32.8 785-6) MCHC (test code = 31.2 g/dL 31.6-35.1 L 786-4) RDW-SD (test code = 41.9 fL 39.0-49.9 85781-5) RDW-CV (test code = 13.6 % 12.0-15.5 788-0) PLT (test code = See_Comment H [Automated 777-3) message] The sy stem which generated this result transmitted reference range : 166 - 358 10*3/ ?L. The reference r funmi was not used to interpret this result as normal/abnormal . MPV (test code = 10.6 fL 9.5-12.9 66402-4) NRBC/100 WBC (test See_Comment [Automat ed code = 7226646749) message] The system which generated this result transmitted reference range : 0.0 - 10.0 /100 WBCs. The refer ence range was not u sed to interpret th is result as normal/abnormal . NRBC x10^3 (test code <0.01 See_Comment [Auto mated = 6087034895) message] The s ystem which generated this result transmitted reference range : 10*3/?L. The reference range was not used to interpret this result as normal/abnormal . GRAN MAT (NEUT) % 87.6 % (test code = 770-8) IMM GRAN % (test code 0.40 % = 9597559611) LYMPH % (test code = 8.8 % 736-9) MONO % (test code = 2.8 % 5905-5) EOS % (test code = 0.1 % 713-8) BASO % (test code = 0.3 % 706-2) GRAN MAT x10^3(ANC) 9.81 10*3/uL 1.88-7.09 H (test code = 7985591977) IMM GRAN x10^3 (test 0.05 10*3/uL 0.00-0.06 code = 7034098769) LYMPH x10^3 (test code 0.98 10*3/uL 1.32-3.29 L = 731-0) MONO x10^3 (test code 0.31 10*3/uL 0.33-0.92 L = 742-7) EOS x10^3 (test code = <0.03 0.03-0.39 L 711-2) BASO x10^3 (test code 0.03 10*3/uL 0.01-0.07 = 704-7) Lab Interpretation Abnormal (test code = 90289-1) [facility] with [id number] 11:08:37 Test Item Value Reference Range Interpretation Comments WBC (test code = See_Comment H [Automated 6690-2) message] The sy stem which generated this result transmitted reference range : 4.30 - 11.10 10*3/?L. The reference range was not used to interpret this result as normal/abnormal . RBC (test code = See_Comment L [Automated 789-8) message] The sy stem which generated this result transmitted reference range : 3.93 - 5.25 10*6/?L. The reference range was not used to interpret this result as normal/abnormal . HGB (test code = 9.3 g/dL 11.6-15.0 L 718-7) HCT (test code = 29.8 % 35.7-45.2 L 4544-3) MCV (test code = 83.5 fL 80.6-95.5 787-2) MCH (test code = 26.1 pg 25.9-32.8 785-6) MCHC (test code = 31.2 g/dL 31.6-35.1 L 786-4) RDW-SD (test code = 41.9 fL 39.0-49.9 47174-2) RDW-CV (test code = 13.6 % 12.0-15.5 788-0) PLT (test code = See_Comment H [Automated 777-3) message] The sy stem which generated this result transmitted reference range : 166 - 358 10*3/ ?L. The reference r funmi was not used to interpret this result as normal/abnormal . MPV (test code = 10.6 fL 9.5-12.9 60582-5) NRBC/100 WBC (test See_Comment [Automat ed code = 8588987668) message] The system which generated this result transmitted reference range : 0.0 - 10.0 /100 WBCs. The refer ence range was not u sed to interpret th is result as normal/abnormal . NRBC x10^3 (test code <0.01 See_Comment [Auto mated = 5091237777) message] The s ystem which generated this result transmitted reference range : 10*3/?L. The reference range was not used to interpret this result as normal/abnormal . GRAN MAT (NEUT) % 87.6 % (test code = 770-8) IMM GRAN % (test code 0.40 % = 1438903583) LYMPH % (test code = 8.8 % 736-9) MONO % (test code = 2.8 % 5905-5) EOS % (test code = 0.1 % 713-8) BASO % (test code = 0.3 % 706-2) GRAN MAT x10^3(ANC) 9.81 10*3/uL 1.88-7.09 H (test code = 7494764211) IMM GRAN x10^3 (test 0.05 10*3/uL 0.00-0.06 code = 9248395525) LYMPH x10^3 (test code 0.98 10*3/uL 1.32-3.29 L = 731-0) MONO x10^3 (test code 0.31 10*3/uL 0.33-0.92 L = 742-7) EOS x10^3 (test code = <0.03 0.03-0.39 L 711-2) BASO x10^3 (test code 0.03 10*3/uL 0.01-0.07 = 704-7) Lab Interpretation Abnormal (test code = 06624-5) [facility] CampusIntubation2021-06-02 21:23:47Gian Negrete CRNA ? ? 01/27/2021 ?4:24 PMIntubationUrgency: elective Airway not difficult General Information and Staff Patient location during procedure: ORResident/AMERICAN HISTORY PROFESSOR: Gian Negrete CRNAPerformed: resident/AMERICAN HISTORY PROFESSOR Indications and Patient ConditionIndications for airway management: anesthesiaSpontaneous Ventilation: absentSedation level: deepPreoxygenated: yesPatient position: sniffingMILS maintained throughoutMask difficulty assessment: 0 - not attempted Final Airway DetailsFinal airway type: supraglottic airway Successful airway: Supraglottic airway: igel.Size 3 Number of attempts at approach: 1 Additional CommentsAirway dry [facility]CT [facility] 2021-01-27 12:56:13 A 6 cm right subcutaneous gluteal collection with layering fat, mayrepresent seroma or hematoma. However superimposed infection cannot beruled out. Clinical correlation is recommended. Preliminary Report Dictated by Resident: Cadence Thompson ?MD. Cristiane, have reviewed this study and agree with theabove report.EXAM: CT PELVIS WITH CONTRAST HISTORY: [place]20 and that it wasfeeling fine up until last Monday and now it feels "hot and heavy and likesomething is rubbing off."?? COMPARISON: None. TECHNIQUE AND FINDINGS: Contiguous axial imaging from the midabdomenthrough the proximal thighs was performed after the administration ofintravenous Omnipaquecontrast. Coronal and sagittal reconstructions wereobtained. ?Auto mA and/or iterative reconstruction were used to reduceradiation dose. FINDINGS: KIDNEYS: No hydronephrosis, stones, or masses. PERITONEUM AND RETROPERITONEUM: No free air or fluid. LYMPH NODES: Mildly prominent right inguinal and rightpelvic lymph nodesare seen. GI TRACT: No dilation or wall thickening. The appendix is unremarkable. PELVIS/BLADDER: Unremarkable. VESSELS: Unremarkable. BONES AND SOFT TISSUES: Subcutaneous fat stranding about the ventralabdominal pelvic wall and bilateral gluteal areas likely postsurgical. A4.7 x 5.9x 6 cm collection of low density with layering fat is seen in theright gluteal area abutting the midright gluteus prashant muscle. [facility], Radiant Results Inft User - 01/27/2021 7:57 AM CDTFormatting of t his note might be different from the original.EXAM: CT PELVIS WITH CONTRASTHISTORY: had a butt-[place] surgery in [place] on 12/23/20 and that it wasfeeling fine up until last Monday and now it feels "hot and heavy and likesomething is rubbing off."??COMPARISON: None.TECHNIQUE AND FINDINGS: Contiguous axialimaging from the midabdomenthrough the proximal thighs was performed after the administration ofintravenous Omnipaque contrast. Coronal and sagittal reconstructions wereobtained. Auto mA and/or iterative reconstruction were used to reduceradiation dose.FINDINGS:KIDNEYS: No hydronephrosis, stones, or masses.PERITONEUM AND RETROPERITONEUM: No free air or fluid.LYMPH NODES: Mildly prominent right inguinal and right pelvic lymph nodesare seen.GI TRACT: No dilation or wall thickening. The appendix is unremarkable.PELVIS/BLADDER: Unremarkable.VESSELS: Unremarkable.BONES AND SOFT TISSUES: Subcutaneous fat stranding about the ventralabdominal pelvic wall and bilateral gluteal areas likely postsurgical. A4.7 x 5.9 x 6 cm collection of low density with layering fat is seen in theright gluteal area abuttingthe mid right gluteus prashant muscle.IMPRESSIONA 6 cm right subcutaneous gluteal collection with layering fat, mayrepresent seroma or hematoma. However superimposed infection cannot beruled out. Clinical correlation is recommended. Preliminary Report Dictated by Resident: Cadence Scott MD., have reviewed this study and agree with theabove report.[facility] CampusCT PELVIS W [id number] 12:56:13 A 6 cm right subcutaneous gluteal collection with layering fat, mayrepresent seroma or hematoma. However superimposed infection cannot beruled out. Clinical correlation is recommended. Preliminary Report Dictated by Resident: Cadence Thompson MD., have reviewed this study and agree with theabove report.EXAM: CT PELVIS WITH CONTRAST HISTORY: had a butt-lift surgery in [place] on12/23/20 and that it wasfeeling fine up until last Monday and now it feels "hot and heavy and likesomething is rubbing off."?? COMPARISON: None. TECHNIQUE AND FINDINGS: Contiguous axial imaging from themidabdomenthrough the proximal thighs was performed after the administration ofintravenous Omnipaquecontrast. Coronal and sagittal reconstructions wereobtained. ?Auto mA and/or iterative reconstruction were used to reduceradiation dose. FINDINGS: KIDNEYS: No hydronephrosis, stones, or masses. PERITONEUM AND RETROPERITONEUM: No free air or fluid. LYMPH NODES: Mildly prominent right inguinal and rightpelvic lymph nodesare seen. GI TRACT: No dilation or wall thickening. The appendix is unremarkable. PELVIS/BLADDER: Unremarkable. VESSELS: Unremarkable. BONES AND SOFT TISSUES: Subcutaneous fat stranding about the ventralabdominal pelvic wall and bilateral gluteal areas likely postsurgical. A4.7 x 5.9x 6 cm collection of low density with layering fat is seen in theright gluteal area abutting the midright gluteus prashant muscle. [facility], Radiant Results Inft User - 01/27/2021 7:57 AM CDTFormatting of t his note might be different from the original.EXAM: CT PELVIS WITH CONTRASTHISTORY: had a butt-lift surgery in [place] on 12/23/20 and that it wasfeeling fine up until last Monday and now it feels "hot and heavy and likesomething is rubbing off."??COMPARISON: None.TECHNIQUE AND FINDINGS: Contiguous axialimaging from the midabdomenthrough the proximal thighs was performed after the administration ofintravenous Omnipaque contrast. Coronal and sagittal reconstructions wereobtained. Auto mA and/or iterative reconstruction were used to reduceradiation dose.FINDINGS:KIDNEYS: No hydronephrosis, stones, or masses.PERITONEUM AND RETROPERITONEUM: No free air or fluid.LYMPH NODES: Mildly prominent right inguinal and right pelvic lymph nodesare seen.GI TRACT: No dilation or wall thickening. The appendix is unremarkable.PELVIS/BLADDER: Unremarkable.VESSELS: Unremarkable.BONES AND SOFT TISSUES: Subcutaneous fat stranding about the ventralabdominal pelvic wall and bilateral gluteal areas likely postsurgical. A4.7 x 5.9 x 6 cm collection of low density with layering fat is seen in theright gluteal area abuttingthe mid right gluteus prashant muscle.IMPRESSIONA 6 cm right subcutaneous gluteal collection with layering fat, mayrepresent seroma or hematoma. However superimposed infection cannot beruled out. Clinical correlation is recommended. Preliminary Report Dictated by Resident: Cadence Scott MD., have reviewed this study and agree with theabove report.[facility] CampusHEPATIC FUNCTION PANEL (84735) (ALB,T.PRO,BILI T,BU/BC,ALT,AST,ALK PHOS)2021-01-27 06:43:32 Test Item Value Reference Range Interpretation Comments TOTAL BILI (test code = 0285981979) 0.3 mg/dL 0.1-1.1 BILI UNCON (test code = 2005131064) 0.1 mg/dL 0.1-1.1 BILI CONJ (test code = 1900887110) 0.0 mg/dL 0.0-0.3 T PROTEIN (test code = 5171693234) 7.0 g/dL 6.3-8.2 ALBUMIN (test code = 5906791742) 3.8 g/dL 3.5-5.0 ALK PHOS (test code = 1602375769) 114 U/L 34-122 ALTv (test code = 1742-6) 16 U/L 5-35 AST(SGOT) (test code = 8994185218) 77 U/L 13-40 H Lab Interpretation (test code = Abnormal 07588-7) [facility] CampusHEPATIC FUNCTION PANEL (56959) (ALB,T.PRO,BILI T,BU/BC,ALT,AST,ALK PHOS)2021-01-27 06:43:32 Test Item Value Reference Range Interpretation Comments TOTAL BILI (test code = 8227291024) 0.3 mg/dL 0.1-1.1 BILI UNCON (test code = 3019057954) 0.1 mg/dL 0.1-1.1 BILI CONJ (test code = 7779671944) 0.0 mg/dL 0.0-0.3 T PROTEIN (test code = 1617627930) 7.0 g/dL 6.3-8.2 ALBUMIN (test code = 4667109171) 3.8 g/dL 3.5-5.0 ALK PHOS (test code = 5854385695) 114 U/L 34-122 ALTv (test code = 1742-6) 16 U/L 5-35 AST(SGOT) (test code = 5502773385) 77 U/L 13-40 H Lab Interpretation (test code = Abnormal 60942-5) [facility] CampusXR CHEST 1 [id number] 06:12:38 No acute cardiopulmonary process. RL: [id number]: [id number] Patient name: FLORES SMITHB: 1990 30 years EXAMINATION: XR CHEST 1 VW Ordering Physician: ROSENDO VANCE CLINICAL HISTORY:fever COMPARISON:None TECHNIQUE:Single frontal view of the chest was performed. The technique of thisexamination is adequate. FINDINGS:Normal lung volumes. No focal infiltrate or consolidation. No effusion orpneumothorax. Heart size is normal without edema. Normal aortic contours.No acute osseous abnormality. [facility], Radiant Results Inft User - 11:13 AM CDT Patient name: FLORES LAGUERREUZB: 1990 30 years EXAMINATION: XR CHEST 1 VWOrdering Physician: ROSENDO VANCE CLINICAL HISTORY:fever COMPARISON:NoneTECHNIQUE:Single frontal view of the chest was performed. The technique of thisexamination is adequate.FINDINGS:Normal lung volumes. No focal infiltrate or consolidation. No effusion orpneumothorax. Heart size is normal without edema. Normal aortic contours.No acute osseous abnormality.IMPRESSIONNo acute cardiopulmonary process.RL: [id number]: [id number] signed by Maxime Bolaños at 01/27/2021 1:12 AMThe [facility] CampusXR CHEST 1 [id number] 06:12:38 No acute cardiopulmonary process. RL: [id number]: [id number] Patient name: FLORES MCCARTHYB: 1990 30 years EXAMINATION: XR CHEST 1 VW Ordering Physician: ROSENDO VANCE CLINICAL HISTORY:fever COMPARISON:None TECHNIQUE:Single frontal view of the chest was performed. The technique of thisexamination is adequate. FINDINGS:Normal lung volumes. No focal infiltrate or consolidation. No effusion orpneumothorax. Heart size is normal without edema. Normal aortic contours.No acute osseous abnormality. [facility], Radiant Results Inft User - 11:13 AM CDT Patient name: FLORES SMITHB: 1990 30 years EXAMINATION: XR CHEST 1 VWOrdering Physician: ROSENDO VANCE CLINICAL HISTORY:fever COMPARISON:NoneTECHNIQUE:Single frontal view of the chest was performed. The technique of thisexamination is adequate.FINDINGS:Normal lung volumes. No focal infiltrate or consolidation. No effusion orpneumothorax. Heart size is normal without edema. Normal aortic contours.No acute osseous abnormality.IMPRESSIONNo acute cardiopulmonary process.RL: [id number]: [id number] signed by Maxime Bolaños at 01/27/2021 1:[address] [facility] Whole [id number] 05:56:59 Test Item Value Reference Range Interpretation Comments LACTIC ACID (test code = 1.65 mmol/L 0.50-2.20 3582388121) Lab Interpretation (test code = Normal 67330-5) [facility] Acid Whole [id number] 05:56:59 Test Item Value Reference Range Interpretation Comments LACTIC ACID (test code = 1.65 mmol/L 0.50-2.20 6156596887) Lab Interpretation (test code = Normal 35420-0) [facility] CampusCOVID-19 (ID NOW RAPID TESTING)2021-01-27 04:56:37 Test Item Value Reference Range Interpretation Comments SARS-CoV-2 Rapid ID NOW Positive Not Detected A (test code = 19341-5) ASHLEE (test code = ASHLEE) ID NOW COVID-19 Assay is an isothermal nucleic acid amplification test intended for the qualitative detection of nucleic acid from SARS-CoV-2 viral RNA in nasopharyngeal (RATINGS ANALYST) specimens. It is used under Emergency Use Authorization (EUA) by FDA. The limit of detection (LOD) of the assay is 125 Genome Equivalents/mL. A positive result is indicative of the presence of SARS-CoV-2 RNA. ?Clinical correlation with patient history and other diagnostic information is necessary to determine patient infection status. A negative (Not Detected) result does not preclude SARS-CoV-2 infection. In patients with clinical symptoms and other tests that are consistent with SARS-CoV-2 infection, negative results should be treated as presumptive negative and a new specimen should be tested with alternative PCR molecular test. Invalid: Please collect a new specimen for repeat patient testing if clinically indicated. Lab Interpretation Abnormal (test code = 06191-4) [facility] NOW [facility]APID TESTING)2021-01-27 04:56:37 Test Item Value Reference Range Interpretation Comments SARS-CoV-2 Rapid ID NOW Positive Not Detected A (test code = 29512-6) ASHLEE (test code = ASHLEE) ID NOW COVID-19 Assay is an isothermal nucleic acid amplification test intended for the qualitative detection of nucleic acid from SARS-CoV-2 viral RNA in nasopharyngeal (RATINGS ANALYST) specimens. It is used under Emergency Use Authorization (EUA) by FDA. The limit of detection (LOD) of the assay is 125 Genome Equivalents/mL. A positive result is indicative of the presence of SARS-CoV-2 RNA. ?Clinical correlation with patient history and other diagnostic information is necessary to determine patient infection status. A negative (Not Detected) result does not preclude SARS-CoV-2 infection. In patients with clinical symptoms and other tests that are consistent with SARS-CoV-2 infection, negative results should be treated as presumptive negative and a new specimen should be tested with alternative PCR molecular test. Invalid: Please collect a new specimen for repeat patient testing if clinically indicated. Lab Interpretation Abnormal (test code = 20683-8) [facility] (NA, K, CL, CO2, GLUCOSE, BUN, CREATININE, CA)2021-01-27 02:53:47 Test Item Value Reference Range Interpretation Comments NA (test code = 140 mmol/L 135-145 4772491695) K (test code = 3.6 mmol/L 3.5-5.0 5138272636) CL (test code = 101 mmol/L 98-108 0717203156) CO2 TOTAL (test code = 31 mmol/L 23-31 9329005479) AGAP (test code = 2-16 8657315807) BUN (test code = 6 mg/dL 7-23 L 9238599991) GLUCOSE (test code = 130 mg/dL 70-110 H 0699869201) CREATININE (test code = 0.49 mg/dL 0.50-1.04 L 3493842475) CALCIUM (test code = 9.4 mg/dL 8.6-10.6 2639244179) eGFR (test code = mL/min/1.73m2 4043670249) ASHLEE (test code = ASHLEE) Association of Glomerular Filtration Rate (GFR) and Staging of Kidney Disease* + --+ --+ ------+| GFR (mL/min/1.73 m2) ?| With Kidney Damage ?| ?Without Kidney Damage+ --------+ --------+ +| ?>90 ?| ?Stage one ?| ? Normal ?+ ---+ ---+ -------+| ?60-89 ?| ?Stage two ?| ? Decreased GFR ? + --+ --+ ------+| ?30-59 ?| ?Stage three ?| ? Stage three ? + --+ --+ ------+| ?15-29 ?| ?Stage four ? | ? Stage four ?+ ---+ ---+ -------+| ?<15 (or dialysis) ? ?| ?Stage five ? | ? Stage five ?+ ---+ ---+ -------+ *Each stage assumes the associated GFR level has been in effect for at least three months. ?Stages 1 to 5, with or without kidney disease, indicate chronic kidney disease. Notes: Determination of stages one and two (with eGFR >59mL/min/1.73 m2) requires estimation of kidney damage for at least three months as defined by structural or functional abnormalities of the kidney, manifested by either:Pathological abnormalities or Markers of kidney damage (including abnormalities in the composition of the blood or urine or abnormalities in imaging tests). Lab Interpretation Abnormal (test code = 26026-5) [facility] (NA, K, CL, CO2, GLUCOSE, BUN, CREATININE, CA)2021-01-27 02:53:47 Test Item Value Reference Range Interpretation Comments NA (test code = 140 mmol/L 135-145 7432393824) K (test code = 3.6 mmol/L 3.5-5.0 6706219058) CL (test code = 101 mmol/L 98-108 6241903103) CO2 TOTAL (test code = 31 mmol/L 23-31 8921598676) AGAP (test code = 2-16 7906740404) BUN (test code = 6 mg/dL 7-23 L 0957569357) GLUCOSE (test code = 130 mg/dL 70-110 H 4614387609) CREATININE (test code = 0.49 mg/dL 0.50-1.04 L 3226207033) CALCIUM (test code = 9.4 mg/dL 8.6-10.6 5550980716) eGFR (test code = mL/min/1.73m2 9743481731) ASHLEE (test code = ASHLEE) Association of Glomerular Filtration Rate (GFR) and Staging of Kidney Disease* + --+ --+ ------+| GFR (mL/min/1.73 m2) ?| With Kidney Damage ?| ?Without Kidney Damage+ --------+ --------+ +| ?>90 ?| ?Stage one ?| ? Normal ?+ ---+ ---+ -------+| ?60-89 ?| ?Stage two ?| ? Decreased GFR ? + --+ --+ ------+| ?30-59 ?| ?Stage three ?| ? Stage three ? + --+ --+ ------+| ?15-29 ?| ?Stage four ? | ? Stage four ?+ ---+ ---+ -------+| ?<15 (or dialysis) ? ?| ?Stage five ? | ? Stage five ?+ ---+ ---+ -------+ *Each stage assumes the associated GFR level has been in effect for at least three months. ?Stages 1 to 5, with or without kidney disease, indicate chronic kidney disease. Notes: Determination of stages one and two (with eGFR >59mL/min/1.73 m2) requires estimation of kidney damage for at least three months as defined by structural or functional abnormalities of the kidney, manifested by either:Pathological abnormalities or Markers of kidney damage (including abnormalities in the composition of the blood or urine or abnormalities in imaging tests). Lab Interpretation Abnormal (test code = 51215-0) [facility] WITH [id number] 02:42:45 Test Item Value Reference Range Interpretation Comments WBC (test code = See_Comment [Automated 7590-2) message] The sy stem which generated this result transmitted reference range : 4.30 - 11.10 10*3/?L. The reference range was not used to interpret this result as normal/abnormal . RBC (test code = See_Comment L [Automated 789-8) message] The sy stem which generated this result transmitted reference range : 3.93 - 5.25 10*6/?L. The reference range was not used to interpret this result as normal/abnormal . HGB (test code = 9.1 g/dL 11.6-15.0 L 718-7) HCT (test code = 29.4 % 35.7-45.2 L 4544-3) MCV (test code = 83.5 fL 80.6-95.5 787-2) MCH (test code = 25.9 pg 25.9-32.8 785-6) MCHC (test code = 31.0 g/dL 31.6-35.1 L 786-4) RDW-SD (test code = 43.4 fL 39.0-49.9 78379-4) RDW-CV (test code = 14.1 % 12.0-15.5 788-0) PLT (test code = See_Comment [Automated 777-3) message] The sy stem which generated this result transmitted reference range : 166 - 358 10*3/ ?L. The reference r funmi was not used to interpret this result as normal/abnormal . MPV (test code = 10.8 fL 9.5-12.9 32785-3) NRBC/100 WBC (test See_Comment [Automat ed code = 7385800204) message] The system which generated this result transmitted reference range : 0.0 - 10.0 /100 WBCs. The refer ence range was not u sed to interpret th is result as normal/abnormal . NRBC x10^3 (test code <0.01 See_Comment [Auto mated = 8963509599) message] The s ystem which generated this result transmitted reference range : 10*3/?L. The reference range was not used to interpret this result as normal/abnormal . GRAN MAT (NEUT) % 70.5 % (test code = 770-8) IMM GRAN % (test code 0.60 % = 0033864639) LYMPH % (test code = 19.5 % 736-9) MONO % (test code = 5.6 % 5905-5) EOS % (test code = 3.4 % 713-8) BASO % (test code = 0.4 % 706-2) GRAN MAT x10^3(ANC) 7.35 10*3/uL 1.88-7.09 H (test code = 8479707890) IMM GRAN x10^3 (test 0.06 10*3/uL 0.00-0.06 code = 5620069920) LYMPH x10^3 (test code 2.03 10*3/uL 1.32-3.29 = 731-0) MONO x10^3 (test code 0.58 10*3/uL 0.33-0.92 = 742-7) EOS x10^3 (test code = 0.35 10*3/uL 0.03-0.39 711-2) BASO x10^3 (test code 0.04 10*3/uL 0.01-0.07 = 704-7) Lab Interpretation Abnormal (test code = 14024-7) [facility] WITH [id number] 02:42:45 Test Item Value Reference Range Interpretation Comments WBC (test code = See_Comment [Automated 6690-2) message] The sy stem which generated this result transmitted reference range : 4.30 - 11.10 10*3/?L. The reference range was not used to interpret this result as normal/abnormal . RBC (test code = See_Comment L [Automated 789-8) message] The sy stem which generated this result transmitted reference range : 3.93 - 5.25 10*6/?L. The reference range was not used to interpret this result as normal/abnormal . HGB (test code = 9.1 g/dL 11.6-15.0 L 718-7) HCT (test code = 29.4 % 35.7-45.2 L 4544-3) MCV (test code = 83.5 fL 80.6-95.5 787-2) MCH (test code = 25.9 pg 25.9-32.8 785-6) MCHC (test code = 31.0 g/dL 31.6-35.1 L 786-4) RDW-SD (test code = 43.4 fL 39.0-49.9 31873-4) RDW-CV (test code = 14.1 % 12.0-15.5 788-0) PLT (test code = See_Comment [Automated 777-3) message] The sy stem which generated this result transmitted reference range : 166 - 358 10*3/ ?L. The reference r funmi was not used to interpret this result as normal/abnormal . MPV (test code = 10.8 fL 9.5-12.9 93348-5) NRBC/100 WBC (test See_Comment [Automat ed code = 6747575344) message] The system which generated this result transmitted reference range : 0.0 - 10.0 /100 WBCs. The refer ence range was not u sed to interpret th is result as normal/abnormal . NRBC x10^3 (test code <0.01 See_Comment [Auto mated = 0953339645) message] The s ystem which generated this result transmitted reference range : 10*3/?L. The reference range was not used to interpret this result as normal/abnormal . GRAN MAT (NEUT) % 70.5 % (test code = 770-8) IMM GRAN % (test code 0.60 % = 1535786275) LYMPH % (test code = 19.5 % 736-9) MONO % (test code = 5.6 % 5905-5) EOS % (test code = 3.4 % 713-8) BASO % (test code = 0.4 % 706-2) GRAN MAT x10^3(ANC) 7.35 10*3/uL 1.88-7.09 H (test code = 2086213154) IMM GRAN x10^3 (test 0.06 10*3/uL 0.00-0.06 code = 5893147936) LYMPH x10^3 (test code 2.03 10*3/uL 1.32-3.29 = 731-0) MONO x10^3 (test code 0.58 10*3/uL 0.33-0.92 = 742-7) EOS x10^3 (test code = 0.35 10*3/uL 0.03-0.39 711-2) BASO x10^3 (test code 0.04 10*3/uL 0.01-0.07 = 704-7) Lab Interpretation Abnormal (test code = 59634-7) [facility] [id number] 02:30:00 Test Item Value Reference Range Interpretation Comments POCT PREG (test code = 1605) negative On board controls acceptable with present C Line (test code = 3574) POCT PREG LOT # (test code = 3575) [id number] POCT PREG TEST DATE (test 07/27/2022 code = 3576) Lab Interpretation (test code = Normal 92337-3) [facility] [id number] 02:30:00 Test Item Value Reference Range Interpretation Comments POCT PREG (test code = 1605) negative On board controls acceptable with present C Line (test code = 3574) POCT PREG LOT # (test code = 3575) [id number] POCT PREG TEST DATE (test 07/27/2022 code = 3576) Lab Interpretation (test code = Normal 09502-5) [facility] Acid Whole [id number] 02:23:17 Test Item Value Reference Range Interpretation Comments LACTIC ACID (test code = 3.15 mmol/L 0.50-2.20 H 2069975732) Lab Interpretation (test code = Abnormal 24278-5) [facility] Acid Whole [id number] 02:23:17 Test Item Value Reference Range Interpretation Comments LACTIC ACID (test code = 3.15 mmol/L 0.50-2.20 H 2072062696) Lab Interpretation (test code = Abnormal 63185-1) [facility] [id number] 23:07:00 Test Item Value Reference Range Interpretation Comments POCT PREG (test code = 1605) Negative On board controls acceptable with C Yes Line (test code = 3574) POCT PREG LOT # (test code = 3575) POCT PREG TEST DATE (test code = 3576) [facility]
[2022-09-24 16:15] LABS: Absolute Lymphocytes (CBC) 3.1 K/uL (0.7-4.9); Hematocrit 32.7 % (36.0-45.0); Lymphocytes % 25.3 % (15.3-44.8); MCV 73.6 fL (80-100); MPV 8.6 fL (7.6-11.3); RBC Red Blood Cell Count 4.44 M/uL (3.86-4.86)
[2022-09-24 16:53] LABS: Potassium 3.8 mmol/L (3.5-5.1)
--- NOTE | 2022-09-24 17:13 | RAD REPORT ---
EXAM DESCRIPTION: US - Transvaginal OB - 09/24/2022 5:00 pm CLINICAL HISTORY: with abdominal pain COMPARISON: None. FINDINGS: The uterus measures 10 x 6 x 6 centimeters. The endometrial stripe measures 25 millimeter s. A gestational sac is not seen. Right ovary normal in size and echotexture. Left ovary not seen secondary to overlying bowel gas The right and left adnexa unremarkable No significant free fluid IMPRESSION: Nonvisualization of a gestational sac within the endometrium. These findings could represent an early intrauterine in which the gestational sac is not se en. Incomplete and even an ectopic can also result in this appearance. This all sh ould be correlated clinically and with serial beta HCG levels. Followup endovaginal sonogram in 1 carlos berry
--- NOTE | 2022-09-24 18:03 | EDPHYS ---
Physician Documentation [facility] Name: Erika Conde Age: 31 yrs Sex: Female : 1990 Arrival Date: 09/24/2022 Time: 15:31 Bed 7 Private MD: ED Physician James Lua HPI: 09/24 18:42 This 31 yrs old Female presents to ER via Ambulatory with complaints of Pelvic kb Pain, Vaginal Bleeding, + Preg <12wks. 18:42 The patient presents to the emergency department with abdominal pain, described as kb crampy, vaginal bleeding, that is moderate, with tissue. 22:50 The estimated gestational age is 6 weeks. course: care: at a clinic. kb Previous pregnancies: in previous pregnancies patient has had. Associated signs and symptoms: Pertinent positives: vaginal bleeding, passed tissue, presumably POC. The patient has not experienced similar symptoms in the past. The patient has not recently seen a physician. Pt reports she was cramping on , seen by OB and told everything looked ok. 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 - Social history:: Smoking status: Patient denies any tobacco usage or history of. ROS: 22:51 Constitutional: Negative for fever, chills, and weight loss. kb 22:51 Abdomen/GI: Positive for abdominal cramps. 22:51 : Positive for vaginal bleeding. 22:51 All other systems are negative. Exam: 22:51 Constitutional: This is a well developed, well nourished patient who is awake, alert, kb and in no acute distress. Head/Face: Normocephalic, atraumatic. ENT: Moist Mucous membranes Cardiovascular: Regular rate and rhythm with a normal S1 and S2. No gallops, murmurs, or rubs. No pulse deficits. Respiratory: Respirations even and unlabored. No increased work of breathing. Talking in full sentences Skin: Warm, dry with normal turgor. Normal color. MS/ Extremity: Pulses equal, no cyanosis. Neurovascular intact. Full, normal range of motion. Neuro: Awake and alert, GCS 15, oriented to person, place, time, and situation. Moves all extremities. Normal gait. Psych: Awake, alert, with orientation to person, place and time. Behavior, mood, and affect are within normal limits. 22:51 Abdomen/GI: Inspection: abdomen appears normal, Bowel sounds: normal, Palpation: soft, in all quadrants, mild abdominal tenderness, in the suprapubic area. Vital Signs: 15:43 BP 128 / 99; Pulse 91; Resp 16; Temp 97.8; Pulse Ox 100% on R/A; Pain 1/10; hb 16:30 BP 98 / 69; Pulse 68; Resp 16; Pulse Ox 98% on R/A; mb9 16:36 BP 105 / 78; mb9 17:54 BP 108 / 75; Pulse 72; Resp 15; Pulse Ox 100% ; mb9 18:52 BP 112 / 81; Pulse 74; Resp 16; Pulse Ox 100% ; mb9 MDM: 15:48 Patient medically screened. kb 18:39 Data reviewed: vital signs, nurses notes. kb 22:51 Differential diagnosis: threatened . Counseling: I had a detailed discussion kb with the patient and/or guardian regarding: the historical points, exam findings, and any diagnostic results supporting the discharge/admit diagnosis, lab results, radiology results, the need for outpatient follow up, an OB/Gyne specialist, to return to the emergency department if symptoms worsen or persist or if there are any questions or concerns that arise at home. 09/24 15:48 Order name: Abo/rh Typing; Complete Time: 16:54 kb 09/24 15:48 Order name: Basic Metabolic Panel; Complete Time: 16:54 kb 09/24 15:48 Order name: CBC with Diff; Complete Time: 16:19 kb 09/24 15:48 Order name: Quantitative Hcg; Complete Time: 16:54 kb 09/24 15:48 Order name: US Transvaginal Ob; Complete Time: 17:18 kb 09/24 15:48 Order name: IV Saline Lock; Complete Time: 16:08 kb 09/24 15:49 Order name: Labs collected and sent; Complete Time: 16:08 kb 09/24 15:49 Order name: NPO; Complete Time: 16:04 kb Administered Medications: No medications were administered Disposition: 19:34 Co-signature as Attending Physician, James Lua MD I agree with the assessment and kdr plan of care. Disposition Summary: 09/24/22 18:02 Discharge Ordered Location: Home kb Condition: Stable kb Diagnosis - Complete or unspecified spontaneous without complication kb Followup: kb - With: Emergency Department - When: As needed - Reason: Worsening of condition Followup: kb - With: Private Physician - When: 2 - 3 days - Reason: Recheck today's complaints, Continuance of care, Re-evaluation by your physician Discharge Instructions: - Discharge Summary Sheet kb - Miscarriage, [id number] kb Forms: - Medication Reconciliation Form kb - Thank You Letter kb - Antibiotic Education kb - Prescription Opioid Use kb Signatures: Dispatcher [employer] EDMS Consuelo Olvera, CERTIFIED SHORTHAND REPORTER-C CERTIFIED SHORTHAND REPORTER-James Jeter MD MD [facility] Lalitha Perez RN RN Corrections: (The following items were deleted from the chart) 17:54 15:49 Urine Dipstick-Ancillary ordered. kb mb9 17:54 15:49 Urine Test ordered. kb mb9
--- NOTE | 2022-09-24 18:03 | ER ---
Nurse's Notes [facility] Name: Erika Conde Age: 31 yrs Sex: Female : 1990 Arrival Date: 09/24/2022 Time: 15:31 Bed 7 Private MD: Diagnosis: Complete or unspecified spontaneous without complication Presentation: 09/24 15:43 Chief complaint: Vaginal bleeding and abdominal cramping today. Pt is approx 6 weeks hb , has possible POC in container. Coronavirus screen: At this time, the client does not indicate any symptoms associated with coronavirus-19. Ebola Screen: No symptoms or risks identified at this time. Initial Sepsis Screen: Does the patient meet any 2 criteria? No. Patient's initial sepsis screen is negative. Does the patient have a suspected source of infection? No. Patient's initial sepsis screen is negative. Risk Assessment: Do you want to hurt yourself or someone else? Patient reports no desire to harm self or others. Onset of symptoms was September 24, 2022. 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 - Social history:: Smoking status: Patient denies any tobacco usage or history of. Screenin:34 [facility] ED Fall Risk Assessment (Adult) History of falling in the last 3 months, mb9 including since admission No falls in past 3 months (0 pts) Confusion or Disorientation No (0 pts) Intoxicated or Sedated No (0 pts) Impaired Gait No (0 pts) Mobility Assist Device Used No (0 pt) Altered Elimination No (0 pt) Score/Fall Risk Level 0 - 2 = Low Risk Oriented to surroundings, Maintained a safe environment, Educated pt \T\ family on fall prevention, incl call for assistance when getting out of bed. Abuse screen: Denies threats or abuse. Nutritional screening: No deficits noted. Tuberculosis screening: No symptoms or risk factors identified. Assessment: 16:00 : Reports vaginal bleeding that is with clots. mb9 16:00 Neuro: Childs Agitation-Sedation Scale (RASS): 0 - Alert and Calm Level of mb9 Consciousness is awake, alert, obeys commands, Oriented to person, place, time, situation, Appropriate for age. Cardiovascular: Heart tones S1 S2 present Capillary refill < 3 seconds is brisk Patient's skin is warm and dry. Pulses are all present. Rhythm is regular. Respiratory: Airway is patent Respiratory effort is even, unlabored, Respiratory pattern is regular, symmetrical, Breath sounds are clear bilaterally. GI: Abdomen is round non-distended, Bowel sounds present X 4 quads. Abd is soft Abdomen is tender to palpation in right upper quadrant, left upper quadrant, right lower quadrant and left lower quadrant. EENT: No signs and/or symptoms were reported regarding the EENT system. Derm: Skin is pink, warm \T\ dry. Musculoskeletal: Range of motion: intact in all extremities. 17:00 Reassessment: No changes from previously documented assessment. Patient and/or family mb9 updated on plan of care and expected duration. Pain level reassessed. Patient is alert, oriented x 3, equal unlabored respirations, skin warm/dry/pink. 17:55 Reassessment: No changes from previously documented assessment. Patient and/or family mb9 updated on plan of care and expected duration. Pain level reassessed. Patient is alert, oriented x 3, equal unlabored respirations, skin warm/dry/pink. Patient states symptoms have not improved. : Urine is blood tinged. 18:52 Reassessment: No changes from previously documented assessment. Patient and/or family mb9 updated on plan of care and expected duration. Pain level reassessed. Patient is alert, oriented x 3, equal unlabored respirations, skin warm/dry/pink. Patient states symptoms have improved. Vital Signs: 15:43 BP 128 / 99; Pulse 91; Resp 16; Temp 97.8; Pulse Ox 100% on R/A; Pain 1/10; hb 16:30 BP 98 / 69; Pulse 68; Resp 16; Pulse Ox 98% on R/A; mb9 16:36 BP 105 / 78; mb9 17:54 BP 108 / 75; Pulse 72; Resp 15; Pulse Ox 100% ; mb9 18:52 BP 112 / 81; Pulse 74; Resp 16; Pulse Ox 100% ; mb9 ED Course: 15:31 Patient arrived in ED. am2 15:32 Consuelo Olvera FNP-C is PHCP. kb 15:32 James Lua MD is Attending Physician. kb 15:44 Triage completed. hb 15:44 Arm band placed on. hb 15:53 Elena Nguyen, RN is Primary Nurse. mb9 16:08 Diet: Patient is NPO. mm9 16:08 Abo/rh Typing Sent. mm9 16:08 Basic Metabolic Panel Sent. mm9 16:08 CBC with Diff Sent. mm9 16:08 Quantitative Hcg Sent. mm9 16:09 Initial lab(s) drawn, by il, sent to lab. Inserted saline lock: 20 gauge in left mm9 antecubital area, using aseptic technique. Blood collected. 16:11 Patient has correct armband on for positive identification. Placed in gown. Bed in low mm9 position. Call light in reach. Side rails up X2. Warm blanket given. Pulse ox on. NIBP on. 17:02 US Transvaginal Ob In Process Unspecified. EDMS 17:55 No provider procedures requiring assistance completed. mb9 18:53 IV discontinued, intact, bleeding controlled, No redness/swelling at site. Pressure mb9 dressing applied. Administered Medications: No medications were administered Medication: 16:35 VIS not applicable for this client. mb9 Outcome: 18:02 Discharge ordered by MD. kb 18:53 Discharged to home ambulatory. mb9 18:53 Condition: stable 18:53 Discharge instructions given to patient, Instructed on discharge instructions, follow up and referral plans. Demonstrated understanding of instructions, follow-up care. 18:53 Patient left the ED. mb9 Signatures: Dispatcher [employer] EDNM Consuelo Olvera, EDELMIRA HOP STRAINER-Lalitha Ruiz, RN RN Aria Rodriguez Maria mm9 Elena Nguyen, RN RN mb9
[2022-09-24 18:58] VITALS: TEMP 97.8
[2022-09-24 19:00] VITALS: O2SAT 100
[2022-09-24 19:02] VITALS: BP 112/81
== END 2022-09-24 18:53 | disposition home or self-care (01) ==
LOC: ER 15:30
DX: O03.9 Complete or unspecified spontaneous abortion without complication (principal)
CPT/HCPCS: 36415; 76817; 80048; 84702; 85025; 86900; 86901; 88305; 99284

== ENCOUNTER 2023-04-27 21:00 | Emergency (ER) | payer SELFPAY ==
--- OUTSIDE RECORDS SUMMARY | 2023-04-27 21:08 | XMS REPORT | Continuity of Care Document ---
:1990 Author Organization [facility] t Address [address] [place] [address] Care Team Providers Name Role Phone PCP, PATIENT DOES NOT HAVE A Primary Care Physician Unavaila ble JOANIE VILLALOBOS Attending Clinician Unavailable HANH MCDONALD Attending Clinician Unavailable [facility] Attending Clinician Unavailable Hanh Mcdonald MD Attending Clinician LAVON ROBB Attending Clinician Unavailable Lavon Robb MD Attending Clinician [facility] Attending Clinician Unavailable Wilfredo Joanie MENDIETA Attending Clinician [phone] LEE ANN HUSSEIN Attending Clinician Unavailable Lee Ann Hussein MD Attending Clinician MISTY HOOKER Attending Clinician Unavailable Misty Tineo Attending Clinician WYATT HUGGINS Attending Clinician Unavailable OTILIA BRITTON Attending Clinician Unavailable Otilia Ortiz Attending Clinician MARVA HOLCOMB Attending Clinician Unavailable Marva Holcomb MD Attending Clinician Elena Gaines RN Attending Clinician Yaima Julio Attending Clinician Rosendo Vance MD Attending Clinician Mauro Pruitt MD Attending Clinician Visit, [facility] Nurse Attending Clinician Unavailable Doctor Unassigned, [place] Attending Clinician Unavailable KEENAN LEE ANN Admitting Clinician Unavailable BRIANA HOOKERANNE Admitting Clinician Unavailable OTILIA BRITTON Admitting Clinician Unavailable Rosendo Vance MD Admitting Clinician Payers Payer Name Policy Type Policy Number Effective Date Expiration Date Nita BUCHANAN MOM CHIP [id number] 2022 00:00:00 ROMUL[employer] LOW [employer] Problems Condition Condition Condition Status Onset Resolution Last Treating Co mments Source Name Details Category Date Date Treatment Clinician Date Miscarriag Miscarriag Disease Active Overview : Univers e e 09-26 Formattin ity of 00:00: g of this [place] 00 note Medical might be Branch different from the original. Recent beta at [facility] 1720 Complete Complete Disease Active Overview: Un lalit 09-26 Formattin ity of 00:00: g of this [place] 00 note Medical might be Branch different from the original. Recent beta at [facility] 1720 Abnormal Abnormal Disease Active Overview: Un lalit maternal maternal 09-23 Formattin ity of glucose glucose 00:00: g of this [place] tolerance, tolerance, 00 note Me dical antepartum antepartum might be Branch different from the original. Pending 3hr gtt Supervisio Supervisio Disease Active U nivers n of n of 1-25 ity of high-risk high[place]risk [place] 00 [facility] Vaginal Vaginal Disease Active Univers bleeding bleeding 1-25 ity of during during 00:00: [place] 00 [facility] Trichomona Trichomona Disease Active Overview : Univers l l 1-25 Formattin ity of vaginitis vaginitis 00:00: [place] of this [place] during during 00 note Medical might be Br anch different from the original. Dx at the ED on meds, pending demi UTI in UTI in Disease Active 2023-0 Overview: Univer s 1-25 Formattin i ty of 00:00: g of this [place] 00 note Medical might be Branch different from the original. Dx at the ED on meds, pending demi Multiparit Multiparit Disease Active 2022-0 U nivers y y 1-25 ity of 00:00: [address] Cellulitis Cellulitis Disease Active 2020-0 U nivers of right of right 6-02 ity of buttock buttock 00:00: [address] Obesity in Obesity in Disease Active 2019-0 U nivers 2-22 ity of 00:00: [address] Well woman Well woman Disease Active 2019-0 U nivers exam exam 2-22 ity of 00:00: [address] Contracept Contracept Disease Active 2019-0 U nivers hermila hermila 2-22 ity of management [place] [address] [place] [address] Obesity Obesity Disease Active 2019-0 Univers (BMI (BMI 2-22 ity of 30-39.9) 30-39.9) 00:00: [address] Contracept Contracept Disease Active 2019-0 U nivers hermila hermila 2-22 [place] management [place] [facility] Vaginal Vaginal Disease Active 2019-0 Univers symptom symptom 1-15 ity of 00:00: [address] History of History of Disease Active 2019-0 U nivers asthma asthma 1-04 ity of 00:00: [address] Allergies, Adverse Reactions, Alerts Allergy Allergy Status Severity Reaction(s) Onset Inactive Treating Comm ents Source Name Type Date Date Clinician NO KNOWN Drug Active Univers ALLERGIE Class ity of S [facility] Social History Social Habit Start Date Stop Date Quantity Comments Source ASSERTION 2022-08-25 [facility] 00:00:00 [facility] Alcohol intake 2022-10-13 2022-10-13 Current University of 00:00:00 00:00:00 non-drinker of [facility] alcohol (finding) Branch Exposure to 2022-09-17 2022-09-27 Not sure [facility] SARS-CoV-2 00:00:00 08:53:00 [facility] (event) Branch Tobacco use and 2022-09-21 2022-09-21 Smokeless tobacco Un iversity of exposure 00:00:00 00:00:00 non-user [facility] Sex [birth year] At [birth year] Universit y of 00:00:00 00:00:00 [facility] Smoking Status Start Date Stop Date Source Never smoked tobacco [facility] Medications Ordered Filled Start Stop Current Ordering Indication Dosage Frequency Signature Comments Components Source Medication Medication Date Date Medication? Clinician (SIG) Name Name ibuprofen 2022- No [id number] 800mg Un lalit (IBU) 09-27 ity of tablet 800 16:30: 15:49 [place] mg 00 :00 Medical Branch ibuprofen 2022- No [id number] 800mg 800 mg, Univers (IBU) 09-27 Oral, ity of tablet 800 16:30: 15:49 ONCE, 1 [place] mg 00 :00 dose, On Medical Tue Branch 09/27/22 at 1030, Routine ibuprofen Yes [id number] 600mg Take 1 U nivers 600 mg -31 tablet by ity of tablet 00:00: mouth [place] 00 every 6 Medical (six) Branch hours as needed (alternate with tylenol for pain) for up to 20 doses. ibuprofen Yes [id number] 600mg Take 1 U nivers 600 mg -31 tablet by ity of tablet 00:00: mouth [place] 00 every 6 Medical (six) Branch hours as needed (alternate with tylenol for pain) for up to 20 doses. ALBUTEROL 2022- No 1{puff} Inhale 1 Univers [...] needed for Branch Other (Wheezing) . Nitrofurant Yes [id number] 100mg Take 1 Univers oin&Nit. 1-24 capsule by ity o f [place] 00:00: mouth 2 [place] (MACROBID[place] 00 (two) Medical 100 mg times Branch capsule daily. Nitrofurant 2023-0 Yes [id number] 100mg Take 1 Univers oin&Nit. 1-24 capsule by ity o f [place] 00:00: mouth 2 [place] (MACROBID) 00 (two) Medical 100 mg times Branch capsule daily. metroNIDAZO 2022-0 Yes TAKE 4 Univ ers LE 500 mg 1-24 TABLETS BY ity of tablet 00:00: MOUTH ONCE [place] 00 DAILY NOW Medical FOR 1 DOSE Branch Nitrofurant 2022-0 Yes [id number] 100mg Take 1 Univers oin&Nit. 1-24 capsule by ity o f [place] 00:00: mouth 2 [place] (MACROBID) 00 (two) Medical 100 mg times Branch capsule daily. metroNIDAZO 2022-0 Yes TAKE 4 Univ ers LE 500 mg 1-24 TABLETS BY ity of tablet 00:00: MOUTH ONCE [place] 00 DAILY NOW Medical FOR 1 DOSE Branch Nitrofurant 2022-0 Yes [id number] 100mg Take 1 Univers oin&Nit. 1-24 capsule by ity o f [place] 00:00: mouth 2 [place] (MACROBID) 00 (two) Medical 100 mg times Branch capsule daily. metroNIDAZO 2022-0 Yes TAKE 4 Univ ers LE 500 mg 1-24 TABLETS BY ity of tablet 00:00: MOUTH ONCE 00 DAILY NOW Medical FOR 1 DOSE Branch Nitrofurant 2022-0 Yes [id number] 100mg Take 1 Univers oin&Nit. 1-24 capsule by ity o f [place] 00:00: mouth 2 [place] (MACROBID) 00 (two) Medical 100 mg times Branch capsule daily. metroNIDAZO 2022-0 Yes TAKE 4 Univ ers LE 500 mg 1-24 TABLETS BY ity of tablet 00:00: MOUTH ONCE [place] 00 DAILY NOW Medical FOR 1 DOSE Branch Nitrofurant 3-0 Yes [id number] 100mg Take 1 Univers oin&Nit. 1-24 capsule by ity o f [place] 00:00: mouth 2 [place] (MACROBID) 00 (two) Medical 100 mg times Branch capsule daily. metroNIDAZO 2022-0 Yes TAKE 4 Univ ers LE 500 mg 1-24 TABLETS BY ity of tablet 00:00: MOUTH ONCE [place] 00 DAILY NOW Medical FOR 1 DOSE Branch Nitrofurant 3-0 Yes [id number] 100mg Take 1 Univers oin&Nit. 1-24 capsule by ity o f [place] 00:00: mouth 2 [place] (MACROBID) 00 (two) Medical 100 mg times Branch capsule daily. metroNIDAZO Yes TAKE 4 Univ ers LE 500 mg 1-24 TABLETS BY ity of tablet 00:00: MOUTH ONCE 00 DAILY NOW Medical FOR 1 DOSE Branch Nitrofurant 0 Yes [id number] 100mg Take 1 Univers oin&Nit. 1-24 capsule by ity o f [place] 00:00: mouth 2 [place] (MACROBID[place] 00 (two) Medical 100 mg times Branch capsule daily. metroNIDAZO Yes TAKE 4 Univ ers LE 500 mg 1-24 TABLETS BY ity of tablet 00:00: MOUTH ONCE 00 DAILY NOW Medical FOR 1 DOSE Branch Nitrofurant 0 Yes [id number] 100mg Take 1 Univers oin&Nit. 1-24 capsule by ity o f [place]ryst 00:00: mouth 2 [place] (MACROBID) 00 (two) Medical 100 mg times Branch capsule daily. metroNIDAZO Yes TAKE 4 Univ ers LE 500 mg 1-24 TABLETS BY ity of tablet 00:00: MOUTH ONCE 00 DAILY NOW Medical FOR 1 DOSE Branch Nitrofurant 0 Yes [id number] 100mg Take 1 Univers oin&Nit. 1-24 capsule by ity o f [place] 00:00: mouth 2 [place] (MACROBID) 00 (two) Medical 100 mg times Branch capsule daily. metroNIDAZO Yes TAKE 4 Univ ers LE 500 mg 1-24 TABLETS BY ity of tablet 00:00: MOUTH ONCE 00 DAILY NOW Medical FOR 1 DOSE Branch NaCl 0.9% 2021- No 1000mL at 999 Uni vers (NS) bolus 11-09 03-16 mL/hr, ity of infusion 23:45: 01:15 1,000 mL, [place] as 1,000 mL 00 :00 IV Medical Infusion, Branch ONCE, 1 dose, On Mon11/09/21 at 1845, MICHAELA ketorolac 2021- No 30mg 30 mg, Unive rs (TORADOL) 3 03-15 Slow IV ity of injection 23:45: 23:36 Push, [place] 30 mg 00 :00 ONCE, 1 Medical dose, On Branch 11/09/21 at 1845, MICHAELA ondansetron 2021-0 2021- No 4mg 4 mg, Slow Univers (ZOFRAN 3-15 03-15 IV Push, ity of (PF)) 23:45: 23:36 ONCE, 1 [place] injection 4 00 :00 dose, On Medi koffi mg Tue Branch 11/09/21 at 1845, MICHAELA benzonatate 2021-0 Yes [id number] 100mg Take 1 Univers 100 mg 3-15 capsule by ity of capsule 00:00: mouth 3 00 (three) Medical times Branch daily as needed for Cough. ondansetron 2021-0 Yes [id number] 4mg Take 1 U nivers (ZOFRAN) 4 3-15 tablet by ity of mg tablet 00:00: mouth [place] 00 every 8 Medical (eight) Branch hours as needed for Nausea and Vomiting (N/V). benzonatate 2021-0 Yes [id number] 100mg Take 1 Univers 100 mg 3-15 capsule by ity of capsule 00:00: mouth 3 00 (three) Medical times Branch daily as needed for Cough. ondansetron 2021-0 Yes [id number] 4mg Take 1 U nivers (ZOFRAN) 4 3-15 tablet by ity of mg tablet 00:00: mouth [place] 00 every 8 Medical (eight) Branch hours as needed for Nausea and Vomiting (N/V). benzonatate 2021-0 Yes [id number] 100mg Take 1 Univers 100 mg 3-15 capsule by ity of capsule 00:00: mouth 3 00 (three) Medical times Branch daily as needed for Cough. ondansetron 2021-0 Yes [id number] 4mg Take 1 U nivers (ZOFRAN) 4 3-15 tablet by ity of mg tablet 00:00: mouth [place] 00 every 8 Medical (eight) Branch hours as needed for Nausea and Vomiting (N/V). benzonatate 2-0 Yes [id number] 100mg Take 1 Univers 100 mg 3-15 capsule by ity of capsule 00:00: mouth 3 00 (three) Medical times Branch daily as needed for Cough. ondansetron 2-0 Yes [id number] 4mg Take 1 U nivers (ZOFRAN) 4 3-15 tablet by ity of mg tablet 00:00: mouth [place] 00 every 8 Medical (eight) Branch hours as needed for Nausea and Vomiting (N/V). benzonatate 2022-0 Yes [id number] 100mg Take 1 Univers 100 mg 3-15 capsule by ity of capsule 00:00: mouth 3 [place] 00 (three) Medical times Branch daily as needed for Cough. ondansetron 2022-0 Yes [id number] 4mg Take 1 U nivers (ZOFRAN) 4 3-15 tablet by ity of mg tablet 00:00: mouth [place] 00 every 8 Medical (eight) Branch hours as needed for Nausea and Vomiting (N/V). benzonatate 2022-0 Yes [id number] 100mg Take 1 Univers 100 mg 3-15 capsule by ity of capsule 00:00: mouth 3 00 (three) Medical times Branch daily as needed for Cough. ondansetron 2022-0 Yes [id number] 4mg Take 1 U nivers (ZOFRAN) 4 3-15 tablet by ity of mg tablet 00:00: mouth [place] 00 every 8 Medical (eight) Branch hours as needed for Nausea and Vomiting (N/V). benzonatate 2022-0 Yes [id number] 100mg Take 1 Univers 100 mg 3-15 capsule by ity of capsule 00:00: mouth 3 00 (three) Medical times Branch daily as needed for Cough. ondansetron 2022-0 Yes [id number] 4mg Take 1 U nivers (ZOFRAN) 4 3-15 tablet by ity of mg tablet 00:00: mouth [place] 00 every 8 Medical (eight) Branch hours as needed for Nausea and Vomiting (N/V). benzonatate 2022-0 Yes [id number] 100mg Take 1 Univers 100 mg 3-15 capsule by ity of capsule 00:00: mouth 3 [place] 00 (three) Medical times Branch daily as needed for Cough. ondansetron 2022-0 Yes [id number] 4mg Take 1 U nivers (ZOFRAN) 4 3-15 tablet by ity of mg tablet 00:00: mouth [place] 00 every 8 Medical (eight) Branch hours as needed for Nausea and Vomiting (N/V). benzonatate 2022-0 Yes [id number] 100mg Take 1 Univers 100 mg 3-15 capsule by ity of capsule 00:00: mouth 3 [place] 00 (three) Medical times Branch daily as needed for Cough. ondansetron 2021-0 Yes [id number] 4mg Take 1 U nivers (ZOFRAN) 4 3-15 tablet by ity of mg tablet 00:00: mouth [place] 00 every 8 Medical (eight) Branch hours as needed for Nausea and Vomiting (N/V). benzonatate 2021-0 Yes [id number] 100mg Take 1 Univers 100 mg 3-15 capsule by ity of capsule 00:00: mouth 3 [place] 00 (three) Medical times Branch daily as needed for Cough. ondansetron 2021-0 Yes [id number] 4mg Take 1 U nivers (ZOFRAN) 4 3-15 tablet by ity of mg tablet 00:00: mouth [place] 00 every 8 Medical (eight) Branch hours as needed for Nausea and Vomiting (N/V). benzonatate 2021-0 Yes [id number] 100mg Take 1 Univers 100 mg 3-15 capsule by ity of capsule 00:00: mouth 3 [place] 00 (three) Medical times Branch daily as needed for Cough. ondansetron 2021-0 Yes [id number] 4mg Take 1 U nivers (ZOFRAN) 4 3-15 tablet by ity of mg tablet 00:00: mouth [place] 00 every 8 Medical (eight) Branch hours as needed for Nausea and Vomiting (N/V). predniSONE 2021-2021- No [id number] 40mg Take 2 Univers 20 mg 3-15 [...] at 0330, solution 3 Routine mL dexamethaso 2020-08- No 10mg 10 mg, Uni vers ne 2-10 12-10 Oral, ity of (DECADRON 09:30: 08:27 ONCE, 1 [place] PHOSPHATE) 00 :00 dose, On Medic al injection Fri Branch 10 mg 08/06/21 at 0330, STAT ipratropium 2020-08 3mL 3 mL, Univ ers -albuteroL 2-10 12-10 Inhalation it y of (DUONEB) 07:45: 06:51 , ONCE, 1 [place] 0.5 mg-3 00 :00 dose, On Medical mg(2.5 mg Fri Branch base)/3 mL 08/06/21 nebulizer at 0145, solution 3 Routine mL predniSONE 2020-08 Yes [id number] 50mg Take 1 Univers 50 mg 2-10 tablet by ity of tablet 00:00: mouth [place] 00 daily. Medical Branch albuterol 2020-08 Yes [id number] 2{puff} Inhale 2 Univers 90 2-10 Puffs ity of mcg/actuati 00:00: every 4 [place] on inhaler 00 (four) Medical hours as Branch needed for Wheezing or Shortness of Breath. albuterol 2020-08 Yes [id number] 2.5mg Inhale 3 Univers 2.5 mg /3 2-10 mL every 4 ity of mL (0.083 00:00: (four) [place] %) 00 hours. May Medical nebulizer also Branch solution nebulize one extra every 6 hours. albuterol 2020-08 Yes [id number] 2{puff} Inhale 2 Univers 90 2-10 Puffs ity of mcg/actuati 00:00: every 4 [place] on inhaler 00 (four) Medical hours as Branch needed for Wheezing or Shortness of Breath. albuterol 2020-08 Yes [id number] 2.5mg Inhale 3 Univers 2.5 mg /3 2-10 mL every 4 ity of mL (0.083 00:00: (four) [place] %) 00 hours. May Medical nebulizer also Branch solution nebulize one extra every 6 hours. albuterol 2020-08 Yes [id number] 2{puff} Inhale 2 Univers 90 2-10 Puffs ity of mcg/actuati 00:00: every 4 [place] on inhaler 00 (four) Medical hours as Branch needed for Wheezing or Shortness of Breath. albuterol 2020-08 Yes [id number] 2.5mg Inhale 3 Univers 2.5 mg /3 2-10 mL every 4 ity of mL (0.083 00:00: (four) [place] %) 00 hours. May Medical nebulizer also Branch solution nebulize one extra every 6 hours. albuterol 2020-08 Yes [id number] 2{puff} Inhale 2 Univers 90 2-10 Puffs ity of mcg/actuati 00:00: every 4 [place] on inhaler 00 (four) Medical hours as Branch needed for Wheezing or Shortness of Breath. albuterol 2020-08 Yes [id number] 2{puff} Inhale 2 Univers 90 2-10 Puffs ity of mcg/actuati 00:00: every 4 [place] on inhaler 00 (four) Medical hours as Branch needed for Wheezing or Shortness of Breath. albuterol 2020-08 Yes [id number] 2{puff} Inhale 2 Univers 90 2-10 Puffs ity of mcg/actuati 00:00: every 4 [place] on inhaler 00 (four) Medical hours as Branch needed for Wheezing or Shortness of Breath. albuterol 2020-08 Yes [id number] 2{puff} Inhale 2 Univers 90 2-10 Puffs ity of mcg/actuati 00:00: every 4 [place] on inhaler 00 (four) Medical hours as Branch needed for Wheezing or Shortness of Breath. albuterol 2020-08 Yes [id number] 2{puff} Inhale 2 Univers 90 2-10 Puffs ity of mcg/actuati 00:00: every 4 [place] on inhaler 00 (four) Medical hours as Branch needed for Wheezing or Shortness of Breath. albuterol 2020-08 Yes [id number] 2{puff} Inhale 2 Univers 90 2-10 Puffs ity of mcg/actuati 00:00: every 4 [place] on inhaler 00 (four) Medical hours as Branch needed for Wheezing or Shortness of Breath. albuterol 2020-08 Yes [id number] 2{puff} Inhale 2 Univers 90 2-10 Puffs ity of mcg/actuati 00:00: every 4 [place] on inhaler 00 (four) Medical hours as Branch needed for Wheezing or Shortness of Breath. albuterol 2020-08 Yes [id number] 2{puff} Inhale 2 Univers 90 2-10 Puffs ity of mcg/actuati 00:00: every 4 [place] on inhaler 00 (four) Medical hours as Branch needed for Wheezing or Shortness of Breath. albuterol 2020-08 Yes [id number] 2{puff} Inhale 2 Univers 90 2-10 Puffs ity of mcg/actuati 00:00: every 4 [place] on inhaler 00 (four) Medical hours as Branch needed for Wheezing or Shortness of Breath. albuterol 2020-08- No [id number] 2.5mg Inhale 3 Univers 2.5 mg /3 2-10 01-25 mL every 4 ity of mL (0.083 00:00: 00:00 (four) [place] %) 00 :00 hours. May Medical nebulizer also Branch solution nebulize one extra every 6 hours. albuterol 2020-08- No [id number] 2.5mg Inhale 3 Univers 2.5 mg /3 2-10 01-25 mL every 4 ity of mL (0.083 00:00: 00:00 (four) [place] %) 00 :00 hours. May Medical nebulizer also Branch solution nebulize one extra every 6 hours. predniSONE 2020-08- No [id number] 50mg Take 1 Univers 50 mg 2-10 [...] 2020- No 40meq 40 mEq, Univers (KLOR-CON 01-29 06-04 Oral, ity of M20) tablet 15:30: 16:35 ONCE, 1 [place] 40 mEq 00 :00 dose, Fri Medical 01/29/21 at Branch 1030, Routine morpHINE 2020- No 2mg 2 mg, Slow Un lalit injection 2 01-29 06-04 IV Push, ity of mg 05:30: 04:25 ONCE, 1 [place] 00 :00 dose, Fri Medical 01/29/21 at Branch 0030, Routine acidophilus Yes [id number] 1g Take 1 Univers 100 million 6-04 tablet by ity of cell tablet 00:00: mouth 2 [place] 00 (two) Medical times Branch daily. acidophilus 0 Yes [id number] 1g Take 1 Univers 100 million 6-04 tablet by ity of cell tablet 00:00: mouth 2 [place] 00 (two) Medical times Branch daily. acidophilus Yes [id number] 1g Take 1 Univers 100 million 6-04 tablet by ity of cell tablet 00:00: mouth 2 [place] 00 (two) Medical times Branch daily. acidophilus 0 Yes [id number] 1g Take 1 Univers 100 million 6-04 tablet by ity of cell tablet 00:00: mouth 2 [place] 00 (two) Medical times Branch daily. acidophilus 2020-0 Yes [id number] 1g Take 1 Univers 100 million 6-04 tablet by ity of cell tablet 00:00: mouth 2 [place] 00 (two) Medical times Branch daily. acidophilus 2020-0 Yes [id number] 1g Take 1 Univers 100 million 6-04 tablet by ity of cell tablet 00:00: mouth 2 [place] 00 (two) Medical times Branch daily. acidophilus 2020-0 Yes [id number] 1g Take 1 Univers 100 million 6-04 tablet by ity of cell tablet 00:00: mouth 2 [place] 00 (two) Medical times Branch daily. acidophilus 2020-0 Yes [id number] 1g Take 1 Univers 100 million 6-04 tablet by ity of cell tablet 00:00: mouth 2 [place] 00 (two) Medical times Branch daily. acidophilus 2020-0 Yes [id number] 1g Take 1 Univers 100 million 6-04 tablet by ity of cell tablet 00:00: mouth 2 [place] 00 (two) Medical times Branch daily. acidophilus 2020-0 Yes [id number] 1g Take 1 Univers 100 million 6-04 tablet by ity of cell tablet 00:00: mouth 2 [place] 00 (two) Medical times Branch daily. acidophilus 2020-0 Yes [id number] 1g Take 1 Univers 100 million 6-04 tablet by ity of cell tablet 00:00: mouth 2 [place] 00 (two) Medical times Branch daily. acidophilus 2020-0 Yes [id number] 1g Take 1 Univers 100 million 6-04 tablet by ity of cell tablet 00:00: mouth 2 [place] 00 (two) Medical times Branch daily. acidophilus 2020-0 Yes [id number] 1g Take 1 Univers 100 million 6-04 tablet by ity of cell tablet 00:00: mouth 2 [place] 00 (two) Medical times Branch daily. acidophilus 2020-0 Yes [id number] 1g Take 1 Univers 100 million 6-04 tablet by ity of cell tablet 00:00: mouth 2 [place] 00 (two) Medical times Branch daily. acidophilus 2020-0 Yes [id number] 1g Take 1 Univers 100 million 6-04 tablet by ity of cell tablet 00:00: mouth 2 [place] 00 (two) Medical times Branch daily. acidophilus Yes [id number] 1g Take 1 Univers 100 million 6-04 tablet by ity of cell tablet 00:00: mouth 2 [place] 00 (two) Medical times Branch daily. acidophilus Yes [id number] 1g Take 1 Univers 100 million 6-04 tablet by ity of cell tablet 00:00: mouth 2 [place] 00 (two) Medical times Branch daily. sulfamethox 2020- No [id number] 1{tbl} Take 1 Univers azole-trime 6-04 06-12 tablet by it y of thoprim 00:00: 04:59 mouth 2 [place] (BACTRIM 00 :00 (two) Medical DS) 800-160 times Branch mg per daily for tablet 7 days. sulfamethox 2020- No [id number] 1{tbl} Take 1 Univers azole-trime 6-04 06-12 tablet by it y of thoprim 00:00: 04:59 mouth 2 [place] (BACTRIM 00 :00 (two) Medical DS) 800-160 times Branch mg per daily for tablet 7 days. sulfamethox 2020- No [id number] 1{tbl} Take 1 Univers azole-trime 6-04 06-12 tablet by it y of thoprim 00:00: 04:59 mouth 2 [place] (BACTRIM 00 :00 (two) Medical DS) 800-160 times Branch mg per daily for tablet 7 days. ALBUTEROL Yes 1{puff} Inhale 1 U nivers SULFATE 6-03 Puff every ity of INHALE 14:37: 8 (eight) [place] 52 hours as Medical needed for Branch Other (Wheezing) . ALBUTEROL Yes 1{puff} Inhale 1 U nivers SULFATE 6-03 Puff every ity of INHALE 14:37: 8 (eight) [place] 52 hours as Medical needed for Branch Other (Wheezing) . albuterol Yes 2.5mg 2.5 mg, Univ ers (PROVENTIL) 6-03 Inhalation it y of 2.5 mg /3 14:37: , Q6HPRN, [place] as mL (0.083 36 Starting Medica l %) [place] 6/3/21 Branch nebulizer at 0937, solution Until 2.5 mg Discontinu ed, Shortness of Breath, Wheezing albuterol Yes 2.5mg 2.5 mg, Univ ers (PROVENTIL) 01-28 Inhalation it y of 2.5 mg /3 14:37: , Q6HPRN, [place] as mL (0.083 36 Starting Medica l %) [facility] 01/28/21 Branch nebulizer at 0937, solution Until 2.5 mg Discontinu ed, Shortness of Breath, Wheezing morpHINE 2020- No 2mg 2 mg, Slow Un lalit injection 2 01-28 IV Push, ity of mg 13:17: 21:16 [facility], [place] 25 :25 Starting [facility] 01/28/21 Branch at 0817, Until [facility] 01/28/21 at 1616, Routine, Pain (scale 7-10) morpHINE 2020- No 2mg 2 mg, Slow Un lalit injection 2 01-28 IV Push, ity of mg 13:17: 21:16 Q6HP, [place] 25 :25 Starting Medical [facility] 01/28/21 Branch at 0817, Until [place] 01/28/21 at 1616, Routine, Pain (scale 7-10) ketorolac 2020- No 30mg 30 mg, Unive rs (TORADOL) 01-27 Slow IV ity of injection 22:08: 22:09 Push, PRN, [place] 30 mg 51 :00 1 dose, Medical Starting Branch Mon01/27/21 at 1708, Until Mon01/27/21 at 1709, Routine, Pain (scale 4-6), PACU
Fa culty member approving Restricted medication : MAURO PRUITT enoxaparin Yes 40mg 40 mg, Unive rs (LOVENOX) 01-27 Subcutaneo ity of injection 22:00: [place], DAILY, [place] 40 mg 00 First dose Medical on Mon Branch 01/27/21 at 1700, Until Discontinu ed, Routine enoxaparin Yes 40mg 40 mg, Unive rs (LOVENOX) 01-27 Subcutaneo ity of injection 22:00: [place], DAILY, [place] 40 mg 00 First dose Medical on Mon01/27/21 at 1700, Until Discontinu ed, Routine morpHINE 2020- No 2mg 2 mg, Slow Un lalit injection 2 01-27 IV Push, ity of mg 21:45: 22:22 Q5MIN PRN, [place] 35 :02 5 doses, Medical Starting Branch Mon01/27/21 at 1645, Until Mon01/27/21 at 1722, Routine, Pain (scale 4-6), PACU HYDROcodone 2020-0 Yes 1{tbl} 1 tablet, Univers -acetaminop 6-02 Oral, ity of hen (NORCO) 21:34: Q6HPRN, Indra as 10-325 mg 03 Starting Medica l tablet Mon01/27/21 Branc h tablet at 1634, Until Discontinu ed, Routine, Pain (scale 4-6) HYDROcodone 0 Yes 1{tbl} 1 tablet, Univers -acetaminop 6-02 Oral, ity of hen (NORCO) 21:34: Q6HPRN, Indra as 10-325 mg 03 Starting Medica l tablet Mon01/27/21 Branc h tablet at 1634, Until Discontinu ed, Routine, Pain (scale 4-6) HYDROcodone Yes 1{tbl} 1 tablet, Univers -acetaminop 6-02 Oral, ity of hen (NORCO 21:33: Q6HPRN[place] 5) 5-325 mg 48 Starting Medi koffi tablet Mon01/27/21 Branc h tablet at 1633, Until Discontinu ed, Routine, Pain (scale 1-3) HYDROcodone 0 Yes 1{tbl} 1 tablet, Univers -acetaminop 6-02 Oral, ity of hen (NORCO 21:33: Q6HPRN, [place] 5) 5-325 mg 48 Starting Medi koffi tablet Mon01/27/21 Branc h tablet at 1633, Until Discontinu ed, Routine, Pain (scale 1-3) PHENYLephri 2020-0 2020- No Slow IV Un lalit ne 1000 01-27 Push, ONCE ity o f mcg/10 mL [...] 2020- No IV Push, U nivers ne 01-27 ONCE INTRA ity of (DECADRON 21:12: 21:36 PROCEDURE, [place] PHOSPHATE) 00 :50 Starting Medic al injection 01/27/21 Bran ch at 1612, Until 01/27/21 at 1636, Routine, Intra-op lidocaine 2020- No Intravenou U nivers 1% 01-27 s, ONCE ity of (XYLOCAINE) 21:07: 21:36 INTRA [place] 100 mg/10 00 :50 PROCEDURE, Medi koffi mL (1 %) Starting Branch injection 01/27/21 at 1607, Until 01/27/21 at 1636, Routine, Intra-op propofoL IV 2020- No Intravenou Univers infusion 01-27 s, ONCE ity of 21:07: 21:36 INTRA [place] 00 :50 PROCEDURE, Medical Starting Branch 01/27/21 at 1607, Until 01/27/21 at 1636, Routine, Intra-op FENTanyl PF 2020- No Intravenou Univers (SUBLIMAZE 01-27 s, ONCE ity o f (PF)) 21:07: 21:36 INTRA [place] injection 00 :50 PROCEDURE, Medi koffi Starting Branch 01/27/21 at 1607, Until 01/27/21 at 1636, Routine, Intra-op midazolam 2020- No IV Push, Uni vers (VERSED) 01-27 ONCE INTRA ity of injection 20:57: 21:36 PROCEDURE, [place] 00 :50 Starting Medical Mon01/27/21 Branch at 1557, Until Mon01/27/21 at 1636, Routine, Intra-op lactated IV Univers ringers IV 01-27 Infusion, ity of infusion 20:57: 21:36 [place]INUOUS [place] 00 :50 PRN, Medical Starting Branch Mon01/27/21 at 1557, Until Mon01/27/21 at 1636, Routine, Intra-op vancomycin Yes 1500mg 1,500 mg, Univers 1500 mg in 01-27 IV ity of NS 500 mL 16:00: Infusion, Indra as IV 00 Q12H ABX, Medical Piggyback First dose Bran ch RTU 1,500 on Wed mg 01/27/21 at 1100, Until Discontinu ed
Reas on for Anti-Infec tive: Documented Infection< br>Documen mariah Infection Site: Skin / Soft Tissue
Duration of Therapy: 10 days vancomycin Yes 1500mg 1,500 mg, Univers 1500 mg in 01-27 IV ity of NS 500 mL 16:00: Infusion, Indra as IV 00 Q12H ABX, Medical Piggyback First dose Bran ch RTU 1,500 on Wed mg 01/27/21 at 1100, Until Discontinu ed
[...]
Duration of Therapy: Other (see Comments) piperacilli Yes 3.375g 3.375 g, Univers n-tazobacta [...] mL 00 :00 ONCE, 1 Medical dose, Wed Branch 01/27/21 at 0215, Routine ondansetron 2020-0 Yes 4mg [...] ed, Routine, Nausea and Vomiting (N/V) morpHINE 2020- No 2mg 2 mg, Slow Un lalit injection 2 01-2702 IV Push, ity of mg 06:12: 21:34 [facility] [place] 24 :15 Starting Medical Mon01/27/21 Branch at 0112, Until Mon01/27/21 at 1634, Routine, Pain (scale 7-10) piperacilli [...] of 1,000 mg in 04:00: 04:57 Piggyback, [place] NaCl 0.9% 00 :00 ONCE, 1 Medical (NS) 250 mL dose, Tue [facility] VIAL-MATE 01/26/21 at IV 2300, 250 piggyback mL
Reas on for Anti-Infec tive: Documented Infection< br>Documen mariah Infection Site: Skin / Soft Tissue
Duration of Therapy: Other (see Comments) iopamidol 2020- No [id number] 120mL 120 mL, Univers (ISOVUE 01-27 Intravenou ity o f 370-500 mL) 04:00: 02:50 s, ONCE, 1 [place] injection 00 :00 dose, Tue Medic al 120 mL 01/26/21 at Branch 2300, Routine NaCl 0.9% 2020- No 1000mL at 999 Uni vers (NS) bolus 01-27 mL/hr, ity of infusion 03:45: 03:57 1,000 mL, Indra as 1,000 mL 00 :00 IV Medical Infusion, [place] ONCE, 1 dose, 01/26/21 at 2245, STAT ondansetron 2020- No 4mg 4 mg, Slow Univers (ZOFRAN 01-27 IV Push, ity of (PF)) 03:30: 02:19 ONCE, 1 [place] injection 4 00 :00 dose, Tue Med ical mg 01/26/21 at Branch 2230, MICHAELA morpHINE 1-0 1- No 4mg 4 mg, Slow Un lalit injection 4 01-27 IV Push, ity of mg 03:30: 02:18 ONCE, 1 [place] 00 :00 dose, Tue Medical 01/26/21 at Branch 2230, STAT medroxyPROG 2020- No [id number] 150mg Univers ESTERone 10-19 ity of (DEPO-PROVE 18:00: 17:59 [place] RA) 00 :00 Medical injection Branch 150 mg medroxyPROG 2019- No [id number] 150mg Univers ESTERone 10-19 ity of (DEPO-PROVE 18:00: 17:59 [place] RA) 00 :00 Medical injection Branch 150 mg medroxyPROG 2019- No [id number] 150mg 150 mg, Univers ESTERone 10-19 Intramuscu ity of (DEPO-PROVE 18:00: 17:59 lar, [place] RA) 00 :00 [id number], Medical injection 4 doses, Branch 150 mg First dose on Mon10/19/18 at 1200, Last dose on Mon06/28/19 at 1200, Routine albuterol 2017-0 Yes 2.5mg Use 0.5 mL [...] Immunizations Ordered Filled Immunization Date Status Comments [facility] e Immunization Name Name Influenza Virus 2018-08-02 [...] of Vaccine Quad .5 mL 00:00:00 [facility] IM 6+ MO Branch TDAP 2018-06-19 Completed University of 00:00:00 [facility] TDAP 2018-06-19 Completed University of 00:00:00 [facility] TDAP 2018-06-19 Completed University of 00:00:00 [facility] TDAP 2018-06-19 Completed University of 00:00:00 [facility] TDAP 2018-06-19 Completed University of 00:00:00 [facility] TDAP 2018-06-19 Completed University of 00:00:00 [facility] TDAP 2018-06-19 Completed University of 00:00:00 [facility] TDAP 2018-06-19 Completed University of 00:00:00 [facility] TDAP 2018-06-19 Completed University of 00:00:00 [facility] TDAP 2018-06-19 Completed University of 00:00:00 [facility] TDAP 2018-06-19 Completed University of 00:00:00 [facility] Tdap 2018-06-19 Completed University of 00:00:00 [facility] TDAP 2018-06-19 Completed University of 00:00:00 [facility] TDAP 2018-06-19 Completed University of 00:00:00 [facility] TDAP 2018-06-19 Completed University of 00:00:00 [facility] TDAP 2018-06-19 Completed University of 00:00:00 [facility] TDAP 2018-06-19 Completed University of 00:00:00 [facility] Tdap 2018-06-19 Completed University of 00:00:00 [facility] TDAP 2018-06-19 Completed University of 00:00:00 [facility] TDAP 2018-06-19 Completed University of 00:00:00 [facility] TDAP 2018-06-19 Completed University of 00:00:00 [facility] PPD (TB) 2017-03-22 Completed University of 00:00:00 [facility] PPD (TB) 2017-03-22 Completed University of 00:00:00 [facility] Branch PPD (TB) 2017-03-22 Completed University of 00:00:00 [facility] Branch PPD (TB) 2017-03-22 Completed University of 00:00:00 [facility] Branch PPD (TB) 2017-03-22 Completed University of 00:00:00 [facility] Branch PPD (TB) 2017-03-22 Completed University of 00:00:00 [facility] Branch PPD (TB) 2017-03-22 Completed University of 00:00:00 [facility] Branch PPD (TB) 2017-03-22 Completed University of 00:00:00 [facility] Branch PPD (TB) 2017-03-22 Completed University of 00:00:00 [facility] Branch PPD (TB) 2017-03-22 Completed University of 00:00:00 [facility] Branch PPD (TB) 2017-03-22 Completed University of 00:00:00 [facility] PPD (TB) 2017-03-22 Completed University of 00:00:00 [facility] Branch PPD (TB) 2017-03-22 Completed University of 00:00:00 [facility] Branch PPD (TB) 2017-03-22 Completed University of 00:00:00 [facility] Branch PPD (TB) 2017-03-22 Completed University of 00:00:00 [facility] Branch PPD (TB) 2017-03-22 Completed University of 00:00:00 [facility] Branch PPD (TB) 2017-03-22 Completed University of 00:00:00 [facility] PPD (TB) 2017-03-22 Completed University of 00:00:00 [facility] Branch PPD (TB) 2017-03-22 Completed University of 00:00:00 [facility] PPD (TB) 2017-03-22 Completed University of 00:00:00 [facility] PPD (TB) 2017-03-22 Completed University of 00:00:00 [facility] Vital Signs Vital Name Observation Time Observation Value Comments Source Systolic blood 2022-09-27 14:52:00 107 mm[Hg] Univer sity of pressure [facility] Diastolic blood 2022-09-27 14:52:00 78 mm[Hg] Unive rsity of pressure [facility] Heart rate 2022-09-27 14:52:00 66 /min [facility] [place] [facility] Body temperature 2022-09-27 14:52:00 36.78 Brisa Univ ersity [facility] [place] [facility] Respiratory rate 2022-09-27 14:52:00 18 /min Univ ers[facility] [place] [facility] Body height 2022-09-27 14:52:00 152.4 cm Universi [facility] [place] [facility] Body weight 2022-09-27 14:52:00 82.101 kg Universi ty [facility] [place] [facility] BMI 2022-09-27 14:52:00 35.35 kg/m2 Universi ty of [facility] Branch Systolic blood 2022-09-21 20:36:00 118 mm[Hg] Univer sity of pressure [place] [facility] Diastolic blood 2022-09-21 20:36:00 78 mm[Hg] Unive rsity of pressure [place] [facility] Heart rate 2022-09-21 20:36:00 104 /min [facility]i [facility] [place] [facility] [place] Body temperature 2022-09-21 20:36:00 36.61 Brisa Univ ersity of [facility] Respiratory rate 2022-09-21 20:36:00 18 /min Univ ersity [facility] [place] [facility] [place] Body height 2022-09-21 20:36:00 152.4 cm Universi [facility] [place] [facility] [place] Body weight 2022-09-21 20:36:00 82.725 kg Universi ty [facility] [place] [facility] BMI 2022-09-21 20:36:00 35.62 kg/m2 [facility]i [facility] [place] [facility] Systolic blood 2022-09-20 22:20:00 124 mm[Hg] Univer sity of pressure [facility] Diastolic blood 2022-09-20 22:20:00 79 mm[Hg] Unive rsity of pressure [place] [facility] [place] Heart rate 2022-09-20 22:20:00 69 /min Universi ty [facility] [place] [facility] Respiratory rate 2022-09-20 22:20:00 18 /min Univ ersity of [facility] Oxygen saturation in 2022-09-20 22:20:00 98 /min [facility] Arterial blood by [facility] Pulse oximetry Branch Body temperature 2022-09-20 14:24:00 36.72 Brisa Univ ersity of [facility] Body height 2022-09-20 14:24:00 152.4 cm Universi ty [facility] [place] [facility] [place] Body weight 2022-09-20 14:24:00 81.647 kg [facility]i [facility] [place] [facility] BMI 2022-09-20 14:24:00 35.15 kg/m2 [facility] [place] [facility] Heart rate 2021-11-10 01:00:00 91 /min [facility] [place] [facility] Body temperature 2021-11-10 01:00:00 37.94 [...] 2021-11-09 22:23:00 72.576 kg [facility] [place] [facility] BMI 2021-11-09 22:23:00 29.26 kg/m2 [facility] [place] [facility] Systolic blood 2021-08-06 10:41:00 116 [...] 97 /min University of Arterial blood by [place] Medi koffi Pulse oximetry Branch Body temperature 2021-08-06 06:47:00 37.33 Brisa Univ ersity [facility] [place] [facility] Body height 2021-08-06 06:47:00 149.9 cm [facility]i ty [facility] [place] [facility] Body weight 2021-08-06 06:47:00 83.915 [...] /min University of Arterial blood by [place] [employer] koffi Pulse oximetry Branch Systolic blood 2021-01-29 16:17:00 [...] /min University of Arterial blood by [place] [employer] k[employer]i Pulse oximetry Branch Heart rate 2021-01-29 [...] 20:05:00 108 mm[Hg] Univer sity of pressure [facility] Diastolic blood 2021-01-27 20:05:00 67 mm[Hg] Unive rsity of [facility] Heart rate 2021-01-27 20:05:00 90 /min [facility] Body temperature 2021-01-27 20:05:00 36.67 Brisa [facility] Res[facility] rate 2021-01-27 20:05:00 20 /min [facility] Oxygen saturation in 2021-01-27 20:05:00 100 /min [facility] Arterial blood by [facility] Pulse oximetry Branch Systolic blood 2019-04-22 19:06:00 130 mm[Hg] Univer sity of [facility] Diastolic blood 2019-04-22 19:06:00 82 mm[Hg] [facility] Heart rate 2019-04-22 19:06:00 84 /min [facility] Body temperature 2019-04-22 19:06:00 36 Brisa [facility] Respiratory rate 2019-04-22 19:06:00 16 /min [facility] Body height 2019-04-22 19:06:00 152.4 cm [facility] Body weight 2019-04-22 19:06:00 85.503 kg [facility] BMI 2019-04-22 19:06:00 36.81 kg/m2 [facility] Procedures Procedure Date / Time Performing Clinician Source Performed POCT TEST 2022-09-27 15:38:00 Degffehui [facility] POCT TEST 2022-09-27 00:00:00 Kendyffehui [facility] GLUCOSE 1 HOUR POST 2022-09-22 15:21:00 Joanie Villalobos [facility] TOTAL BETA HCG ASSAY 2022-09-21 21:30:00 Joanie Villalobos [facility] CBC WITH DIFF 2022-09-21 21:30:00 Joanie Villalobos [facility] HEPATITIS B SURFACE 2022-09-21 21:30:00 Joanie Villalobos [facility] ANTIGEN [facility] HCV ANTIBODY 2022-09-21 21:30:00 Joanie Villalobos [facility] HB ABO GROUPING 2022-09-21 21:30:00 Joanie Villalobos [facility] HIV 1/2 AG-AB WITH REFLEX 2022-09-21 21:30:00 Joanie Villalobos [facility] PAP SMEAR-LIQUID BASED-CP 2022-09-21 21:30:00 Joanie Villalobos [facility] POCT TEST 2022-09-21 20:29:00 Joanie Villalobos [facility] POCT URINALYSIS W/O 2022-09-21 20:29:00 Joanie Villalobos [facility] ADC CLC OR LCC ONLY - WET 2022-09-20 22:24:00 [facility] 2022-09-20 20:12:04 Lee Ann Hussein [facility] TRIMESTER LESS THAN 14 Medical [place] ranch WEEKS WITH TRANSVAGINAL URINALYSIS 2022-09-20 15:15:00 Lee Ann Hussein [facility] LIPASE 2022-09-20 15:11:00 Lee Ann Hussein [facility] TEST, SERUM 2022-09-20 15:11:00 Lee Ann Hussein [facility] COMP. METABOLIC PANEL 2022-09-20 15:11:00 Lee Ann Hussein [facility] ([id number]) [facility] TOTAL BETA HCG ASSAY 2022-09-20 15:11:00 Lee Ann Hussein [facility] CBC WITH DIFF 2022-09-20 15:11:00 Lee Ann Hussein [facility] PROTHROMBIN TIME / INR 2022-09-20 15:11:00 Lee Ann Hussein [facility] ACTIVATED PARTIAL THRMPLAS 2022-09-20 15:11:00 Lee Ann Hussein [facility] CONSENT/REFUSAL FOR 2022-09-20 14:05:15 Doctor Unasstyrone, [facility] DIAGNOSIS AND TREATMENT [facility] [place] XR CHEST 1 VW 2021-11-09 23:31:00 [facility]FF 2021-11-09 23:31:00 [facility] 2021-11-09 23:21:00 Misty Hooker [facility] URINALYSIS 2021-11-09 23:19:00 Walter [facility] RAPID INFLUENZA A/B 2021-11-09 23:19:00 Walter Misty [facility] COVID-19 (ID NOW RAPID 2021-11-09 23:19:00 Walter [facility] TESTING) Medical Branch LIPASE 2021-11-09 23:13:00 [facility] COMP. METABOLIC PANEL 2021-11-09 23:13:00 Misty Hooker [facility] ([id number]) Medical Branch NOTICE OF PRIVACY 2021-11-09 22:13:35 Doctor Unaelena, [facility] PRACTICES [facility] CONSENT/REFUSAL FOR 2021-11-09 22:13:21 Doctor Unasstyrone, [facility] DIAGNOSIS AND TREATMENT [facility] XR CHEST 1 VW 2021-08-06 09:20:00 Otilia Britton [facility] RAPID INFLUENZA A/B 2021-08-06 08:25:00 Otilia Britton [facility] COVID-19 (ID NOW RAPID 2021-08-06 08:25:00 Otilia Britton [facility] TESTING) Medical Branch BASIC METABOLIC PANEL (NA, 2021-01-29 10:37:00 Chinedu Fragoso [facility] K, CL, CO2, GLUCOSE, BUN, [facility] CREATININE, [place]) CBC WITH DIFF 2021-01-29 10:37:00 Chinedu Fragoso Matthews o [facility] VANCOMYCIN TROUGH 2021-01-29 03:57:00 Leeroy Mae [facility] BASIC METABOLIC PANEL (NA, 2021-01-28 10:27:00 Edionwe, [facility] K, CL, CO2, GLUCOSE, BUN, Medica l Branch CREATININE, [place]) CBC WITH DIFF 2021-01-28 10:27:00 Edionqamar, [facility] BASIC METABOLIC PANEL (NA, 2021-01-28 10:27:00 Edionwe, [facility] K, CL, CO2, GLUCOSE, BUN, Medica l Branch CREATININE, [place]) CBC WITH DIFF 2021-01-28 10:27:00 Edionqamar, [facility] INTUBATION 2021-01-27 21:23:47 Gian Negrete [facility] ASPIRATE OR ABSCESS 2021-01-27 21:22:56 Marva Holcomb [facility] CULTURE(AEROBIC/ANAEROBIC) Medic ma Branch ASPIRATE OR ABSCESS 2021-01-27 21:22:56 Marva Holcomb [facility] CULTURE(AEROBIC/ANAEROBIC) Medic ma Branch INCISION AND DRAINAGE 2021-01-27 20:50:00 Marva Holcomb [facility] INCISION AND DRAINAGE 2021-01-27 20:50:00 Marva Holcomb [facility] [place] XR CHEST 1 VW 2021-01-27 05:56:[address] [facility] CHEST 1 VW 2021-01-27 05:56:[address] [facility] LACTIC ACID WHOLE BLOOD 2021-01-27 05:47:00 Otilia Britton [facility] LACTIC ACID WHOLE BLOOD 2021-01-27 05:47:00 Otilia Britton [facility] COVID-19 (ID NOW RAPID 2021-01-27 04:33:00 [facility] Medical Branch COVID-19 (ID NOW RAPID 2021-01-27 04:33:00 [facility] Medical Branch CT PELVIS W CONTRAST 2021-01-27 02:56:37 Otilia Britton [facility] CT PELVIS W CONTRAST 2021-01-27 02:56:37 Otilia Britton [facility] POCT TEST 2021-01-27 02:30:00 Otilia Britton [facility] POCT TEST 2021-01-27 02:30:00 Otilia Britton [facility] BLOOD CULTURE SCREEN 2021-01-27 02:20:00 Otilia Britton [facility] BLOOD CULTURE SCREEN 2021-01-27 02:20:00 Otilia Britton [facility] HEPATIC FUNCTION PANEL 2021-01-27 02:09:00 [facility] ([id number]) (ALB,T.PRO,[facility] T,BU/BC,ALT,AST,ALK PHOS) BASIC METABOLIC PANEL (NA, 2021-01-27 02:09:00 Otilia Britton [facility] K, CL, CO2, GLUCOSE, BUN, Medica l Branch CREATININE, [place]) CBC WITH DIFF 2021-01-27 02:09:00 Otilia Britton [facility] LACTIC ACID WHOLE BLOOD 2021-01-27 02:09:00 Otilia Britton [facility] HEPATIC FUNCTION PANEL 2021-01-27 02:09:00 [facility] ([id number]) (ALB,T.PRO,[facility] Medical [place] T,BU/BC,ALT,AST,ALK PHOS) BASIC METABOLIC PANEL (NA, 2021-01-27 02:09:00 Otilia Britton [facility] K, CL, CO2, GLUCOSE, BUN, Medica l Branch CREATININE, [place]) CBC WITH DIFF 2021-01-27 02:09:00 Otilia Britton S [facility] LACTIC ACID WHOLE BLOOD 2021-01-27 02:09:00 Otilia Britton [facility] BLOOD CULTURE SCREEN 2021-01-27 02:08:00 Otilia Britton [facility] BLOOD CULTURE SCREEN 2021-01-27 02:08:00 Otilia Britton [facility] CONSENT/REFUSAL FOR 2021-01-27 01:14:15 Doctor [facility]igned [facility] DIAGNOSIS AND TREATMENT [facility] CONSENT/REFUSAL FOR 2021-01-27 01:14:15 Doctor Unassigned [facility] DIAGNOSIS AND TREATMENT [facility] NOTICE OF PRIVACY 2021-01-27 01:13:39 Doctor Unasstyrone [facility] NOTICE OF PRIVACY 2021-01-27 01:13:39 Doctor Unassigned, [facility] POCT TEST 2019-04-22 23:07:00 Joanie Villalobos [facility] NO SHOW OR MISSED 2019-04-22 18:55:00 Doctor Abad [facility] APPOINTMENT POLICY [facility] h ACKNOWLEDGEMENT Encounters Start End Encounter Admission Attending Care Care Encounter Source Date/Time Date/Time Type Type Clinicians Facility Department ID 2021-06-27 Emergency [facility] [id number] Univers 22:32:[address] [facility] 2022-10-20 2022-10-20 Outpatient R WILFREDO, [facility] [id number] Univers 09:00:00 09:00:00 JOANIE moore [facility] 2022-10-11 2022-10-11 Outpatient R JOSE MARTIN [facility] [id number] Univers 10:45:00 15:58:[address] [facility] 2022-10-11 2022-10-11 Telemedici Trimester, [facility] Res-1s t UNIVERSIT [id number] Univers 10:45:00 15:58:23 ne Visit Hanh Mcdonald [facility] [id number] it of [facility] [id number] Mandeep campos [phone] [address] 2022-09-27 2022-09-27 Outpatient R DAYANA [facility] [id number] Univers 08:45:00 09:49:[address] [facility] 2022-09-27 2022-09-27 Routine Trimester, [facility] Res-1st UNIVERSIT [id number] Univers 08:45:00 09:49:09 Lavon Robb [facility] [id number] ity of Visit CLINICS [id number] [place] [id number] [address] 2022-09-26 2022-09-26 Outpatient R WILFREDO [facility] [id number] Univers 08:15:00 08:40:50 JOANIE vu [facility] 2022-09-26 2022-09-26 Sleep Lab Technologist Lab, [facility] [id number]. [id number] Univers 08:15:00 08:40:50 Visit Joanie Villalobos [employer] [id number] 10 ity of REGIONAL [id number] Indra as MATERNAL [phone] Med ical & CHILD [address] [place] [address] 2022-09-23 2022-09-23 Telephone [facility] [id number] Univers 00:00:00 00:00:00 Joanie C [employer] [id number] ity of REGIONAL [id number] Indra as MATERNAL [id number] [facility] ical & CHILD [address] [place] [address] 2022-09-22 2022-09-22 Sleep Lab Technologist Lab, [facility] 1.2.840. [id number] Univers 08:30:00 08:30:00 Visit Joanie Villalobos [employer] [id number] 10 ity of REGIONAL [id number] Indra as MATERNAL [phone] [facility] ical & CHILD [address] [place] [address] 2022-09-22 2022-09-22 Outpatient R WILFREDO [facility] [id number] Univers 08:30:00 08:29:14 JOANIE moore [facility] 2022-09-21 2022-09-21 Outpatient R WILFREDO [facility] [id number] Univers 14:15:00 15:35:56 JOANIE moore [facility] 2022-09-21 2022-09-21 Initial Akinchristiano, [facility] [id number] Univers 14:15:00 15:35:56 Joanie Cardoso [employer] [id number] ity of [facility] [id number] Indra as MATERNAL [id number] [facility] ical & CHILD [address] [place] [address] 2022-09-20 2022-09-20 [facility] [id number] Univers 08:20:00 16:48:00 LEE ANN [facility] 2022-09-20 2022-09-20 Emergency [facility] [id number] Univers 08:20:00 16:48:00 [facility].1.13.10 i ty of [place] 4.2.7.2.686 [facility] [id number] [address] 2021-11-09 2021-11-09 Emergency X WALTER [facility] ERT [id number] Univers 17:29:00 20:21:[address] [facility] [place] [place] 2021-11-09 2021-11-09 Emergency [facility] 1.2.840.114 [id number] Univers 17:29:00 20:21:00 Misty ANGLEBEBETO 350.1.13.10 i ty of [place] 4.2.7.2.686 [facility] [id number] [address] 2021-10-23 2021-10-23 Outpatient R BHAVNA [facility] [id number] Univers 09:30:00 09:30:00 WYATT ny o f [facility] 2021-08-06 2021-08-06 Emergency X BENJY [facility] ERT [id number] Univers 00:30:00 04:47:00 OTILIA [facility] 2021-08-06 2021-08-06 Emergency [facility] [id number] Univers 00:30:00 04:47:00 Otilia RIZO 350.1.13.10 i ty of [place] 4.2.7.2.686 [facility] [id number] [facility] [address] 2021-02-16 2021-02-16 Outpatient R ZHANG [facility] [id number] Univers 16:00:00 17:01:15 MARVA yanely of [facility] 2021-02-16 2021-02-16 Office [facility] 1.2.543.650 [id number] Univers 15:56:33 17:01:15 Visit Marva Rizo 350.1.13.10 [place] [id number] [facility] [address] [facility] 2021-02-03 2021-02-03 Patient Elena Gaines Jf 1.2.840.114 [id number] Univers 00:00:00 00:00:00 Outreach E Duncan 350.1.13.10 [place] [id number] [facility] [address] 2021-02-01 2021-02-01 Transition Jf Julio 1.2.840.114 [id number] Univers 00:00:00 00:00:00 of Care Yaima Song 350.1.13.10 [place] [id number] [facility] [address] 2021-01-26 2021-01-29 Hospital Otilia Britton [facility] 1.2.840.11 [id number] Univers 20:38:00 12:24:00 Encounter Rosendo Vance 350.1.13.10 [place] [id number] [facility] [address] 2021-01-27 2021-01-27 Anesthesia [facility] 1.2.840.114 [id number] Univers 15:57:00 16:36:00 Event Mauro Rizo 350.1.13.10 [place] [id number] [facility] [address] 2021-01-27 2021-01-27 Surgery [facility] 1.2.213.773 [id number] Univers 15:30:00 16:29:00 Marva Rizo 350.1.13.10 [place] [id number] [address] 2019-04-22 2019-04-22 Nurse Visit, Sravani Nurse [facility] 1.2 .840.114 [id number] Univers 13:54:22 14:17:45 Visit Joanie Villalobos [employer] 350.1.13. 10 ity of [facility] 4.2.7.2.686 Indra as MATERNAL [id number] [facility] ical & CHILD [address] [place] [address] DARRIUS 2019-04-22 2019-04-22 Orders Doctor HOMERO 1.2.840.114 [id number] Univers 00:00:00 00:00:00 Only Unassigned, TONIO 350.1.13.10 ity of [place] [facility] 4.2.7.2.686 Indra as [id number] [address] Results Test Description Test Time Test Comments Results Result Comments Source POCT TEST 2022-09-27 15:49:00 Test Item Value Reference Range Interpretation Comme nts POCT PREG (test code = 1605) Positive On board controls acceptable with C Line (test code = 3574) Yes POCT PREG LOT # (test code = 3575) POCT PREG TEST DATE (test code = 3576) [id number] 15:40:00 Test Item Value Reference Range Interpretation Comments POCT PREG (test code = 1605) Positive On board controls acceptable with C Yes Line (test code = 3574) POCT PREG LOT # (test code = 3575) POCT PREG TEST DATE (test code = 3576) Lab Interpretation (test code = Abnormal 70899-6) [facility] WITH [id number] 11:31:52 Test Item Value Reference Range Interpretation Comments HIV Negative Negative Semi-quantitative (test code = 08621-9) ASHLEE (test code = Non-reactive for HIV-1 ASHLEE) antigen and HIV-1/HIV-2 antibodies. ?No laboratory evidence of HIV infection. ?Repeat in 2-4 weeks if acute HIV infection is suspected. [facility], BLOOD [id number] 10:13:07 Test Item Value Reference Range Interpretation Comments ABO & RH (test code O POSITIVE Performe d at [facility] = 20) Laboratory Serv [facility] Blood Bank3 [facility] s [address]Plgx Free: [phone] A No. [id number] IAT (test code = Negative Performed a t [facility] 1185) Laboratory Serv [facility] Blood [facility]3 [facility] s [address]Vrqb Free: [phone] A No. [id number] [facility] [id number] 08:18:32 Test Item Value Reference Range Interpretation Comments HCV Ab (test code = 84053-6) Negative HCV Semi-Quantitative (test code = 32467-2) [facility] SURFACE [id number] 08:01:30 Test Item Value Reference Range Interpretation Comments HBsAg Semi-Quantitative (test code = Negative Negative 5195-3) [facility] [id number] 07:56:47 Test Item Value Reference Range Interpretation Comments BETA HCG (test See_Comment [Automated m essage] code = The system [facility] h [id number]) generated this result transmit mariah reference range : Non- fe male and male patien ts: <5 mIU/mL. The reference range was not used to interpret this result as normal/abnormal . ASHLEE (test code Gestational Age ? ? = ASHLEE) ?Range (mIU/mL) 1-10 ?Weeks ?58-93306146-34 Weeks ?99524-31195270-49 Weeks ?9741-94977243-36 Weeks ?7423-642953 Biotin has been reported to cause a negative bias, interpret results relative to patient's use of biotin. [facility] WITH [id number] 06:34:02 Test Item Value Reference Range Interpretation [...] RDW-SD (test code = 48.1 fL 39.0-49.9 84458-6) RDW-CV (test code = 17.2 % 12.0-15.5 H 788-0) PLT (test code = See_Comment [Automated 777-3) message] The sy stem which generated this result transmitted reference range : 166 - 358 10*3/ ?L. The reference r funmi was not used to interpret this result as normal/abnormal . MPV (test code = 11.3 fL 9.5-12.9 49288-0) NRBC/100 WBC (test See_Comment [Automat ed code = 9592823991) message] The system which generated this result transmitted reference range : 0.0 - 10.0 /100 WBCs. The refer ence range was not u sed to interpret th is result as normal/abnormal . NRBC x10^3 (test code See_Comment [Auto mated = 4864257195) message] The s ystem which generated this result transmitted reference range : 10*3/?L. The reference range was not used to interpret this result as normal/abnormal . GRAN MAT (NEUT) % 70.4 % (test code = 770-8) IMM GRAN % (test code 0.60 % = 8910002747) LYMPH % (test code = 21.6 % 736-9) MONO % (test code = 5.7 % 5905-5) EOS % (test code = 1.1 % 713-8) BASO % (test code = 0.6 % 706-2) GRAN MAT x10^3(ANC) 7.10 10*3/uL 1.88-7.09 H (test code = 2083507398) IMM GRAN x10^3 (test 0.06 10*3/uL 0.00-0.06 code = 8652023653) LYMPH x10^3 (test code 2.18 10*3/uL 1.32-3.29 = 731-0) MONO x10^3 (test code 0.57 10*3/uL 0.33-0.92 = 742-7) EOS x10^3 (test code = 0.11 10*3/uL 0.03-0.39 711-2) BASO x10^3 (test code 0.06 10*3/uL 0.01-0.07 = 704-7) Lab Interpretation Abnormal (test code = 93233-7) [facility] URINALYSIS W/O SPECIFIC [id number] 20:30:00 Test Item Value Reference Range Interpretation [...] code = 3257) Large Negative - Negative [facility]/O SPECIFIC [id number] 20:30:00 Test Item Value Reference Range Interpretation [...] code = 3257) Large Negative - Negative [facility] [id number] 20:29:00 Test Item Value Reference Range Interpretation Comments POCT PREG (test code = 1605) Positive On board controls acceptable with C Yes Line (test code = 3574) POCT PREG LOT # (test code = 3575) POCT PREG TEST DATE (test code = 3576) [facility] [id number] 20:29:00 Test Item Value Reference Range Interpretation Comments POCT PREG (test code = 1605) Positive On board controls acceptable with C Yes Line (test code = 3574) POCT PREG LOT # (test code = 3575) POCT PREG TEST DATE (test code = 3576) [facility] BHCG (QUANTITATIVE)2022-09-20 17:15:40 Test Item Value Reference Range Interpretation Comments BETA HCG (test See_Comment [Automated m essage] code = The system [employer] h [id number]) generated this result transmit mariah reference range : Non- fe male and male patien ts: <5 mIU/mL. The reference range was not used to interpret this result as normal/abnormal . ASHLEE (test code Gestational Age ? ? = ASHLEE) ?Range (mIU/mL) 1-10 ?Weeks ?74-74974195-72 Weeks ?93002-97007020-22 Weeks ?9179-35206622-71 Weeks ?4986-118666 Biotin has been reported to cause a negative bias, interpret results relative to patient's use of biotin. [facility]Y TEST, [id number] 16:16:57 Test Item Value Reference Range Interpretation Comments PREG SERUM (test code Positive = 4086760720) ASHLEE (test code = ASHLEE) Positive greater than or equal to 10 IU/L hCG. [facility]ACTIVATED PARTIAL THRMPLAS [id number] 16:14:06 Test Item Value Reference Range Interpretation Comments APTT Patient (test See_Comment [Automat ed code = 3173-2) message] The system which generated this result transmitted reference range : 23 - 38 Seconds . The reference range was not used to interpr et this result as normal/abnormal . ASHLEE (test code = ASHLEE) The [facility] patient population mean normal value for aPTT is 30 seconds. Lab Interpretation Normal (test code = 37287-1) [facility] HospitalPROTHROMBIN [facility] / [id number] 16:12:09 Test Item Value Reference Range Interpretation Comments PROTIME PATIENT (test See_Comment [Auto mated message] code = 5964-2) The system wh ich generated this result transmitted ref erence range: 12.0 - 1 4.7 Seconds. The re ference range was not u sed to interpret this result as normal/abnor mal. INR (test code = 6301-6) Nor mal INR <1.1; Warfarin Therap eutic range 2.0 to 3. 0 or 2.5 to 3.5, dep ending upon the indica tions. Lab Interpretation (test Normal code = 84799-7) [facility]. METABOLIC PANEL (33845)2022-09-20 15:58:03 Test Item Value Reference Range Interpretation Comments NA (test code = 136 mmol/L 135-145 8253997091) K (test code = 4.1 mmol/L 3.5-5.0 7473737793) CL (test code = 102 mmol/L 98-108 9119342587) CO2 TOTAL (test code = 25 mmol/L 23-31 1720675960) AGAP (test code = 2-16 5867710257) BUN (test code = 9 mg/dL 7-23 1001530243) GLUCOSE (test code = 94 mg/dL 70-110 8902465698) CREATININE (test code = 0.48 mg/dL 0.50-1.04 L 9821569506) TOTAL BILI (test code = 0.4 mg/dL 0.1-1.1 2465111942) CALCIUM (test code = 8.8 mg/dL 8.6-10.6 4142150909) T PROTEIN (test code = 7.4 g/dL 6.3-8.2 5779921437) ALBUMIN (test code = 4.5 g/dL 3.5-5.0 0378873466) ALK PHOS (test code = 77 U/L 34-122 1990631778) ALTv (test code = 15 U/L 5-35 2-6) AST(SGOT) (test code = 19 U/L 13-40 5234463210) eGFR (test code = mL/min/1.73m2 9969157356) ASHLEE (test code = ASHLEE) Association of [...] tests). Lab Interpretation Abnormal (test code = 53750-4) [facility] 15:58:03 Test Item Value Reference Range Interpretation Comments LIPASE (test code = 2844432862) 74 U/L 0-220 Lab Interpretation (test code = Normal 59574-3) [facility] WITH [id number] 15:56:47 Test Item Value Reference Range Interpretation [...] RDW-SD (test code = 47.3 fL 39.0-49.9 02808-2) RDW-CV (test code = 17.0 % 12.0-15.5 H 788-0) PLT (test code = See_Comment [Automated 777-3) message] The sy stem which generated this result transmitted reference range : 166 - 358 10*3/ ?L. The reference r funmi was not used to interpret this result as normal/abnormal . MPV (test code = 10.5 fL 9.5-12.9 94835-0) NRBC/100 WBC (test See_Comment [Automat ed code = 0866947337) message] The system which generated this result transmitted reference range : 0.0 - 10.0 /100 WBCs. The refer ence range was not u sed to interpret th is result as normal/abnormal . NRBC x10^3 (test code See_Comment [Auto mated = 6512861011) message] The s ystem which generated this result transmitted reference range : 10*3/?L. The reference range was not used to interpret this result as normal/abnormal . GRAN MAT (NEUT) % 58.6 % (test code = 770-8) IMM GRAN % (test code 0.80 % = 4494229807) LYMPH % (test code = 30.9 % 736-9) MONO % (test code = 6.6 % 5905-5) EOS % (test code = 2.4 % 713-8) BASO % (test code = 0.7 % 706-2) GRAN MAT x10^3(ANC) 5.29 10*3/uL 1.88-7.09 (test code = 9804388410) IMM GRAN x10^3 (test 0.07 10*3/uL 0.00-0.06 H code = 7275317064) LYMPH x10^3 (test code 2.79 10*3/uL 1.32-3.29 = 731-0) MONO x10^3 (test code 0.60 10*3/uL 0.33-0.92 = 742-7) EOS x10^3 (test code = 0.22 10*3/uL 0.03-0.39 711-2) BASO x10^3 (test code 0.06 10*3/uL 0.01-0.07 = 704-7) Lab Interpretation Abnormal (test code = 36275-9) [facility] WITH [id number] 23:41:07 Test Item Value Reference Range Interpretation Comments WBC (test code = See_Comment [Automated 9290-2) message] The sy stem which generated this result transmitted reference range : 4.30 - 11.10 10*3/?L. The reference range was not used to interpret this result as normal/abnormal . RBC (test code = See_Comment [Automated 159-8) message] The sy stem which generated this [...] RDW-SD (test code = 40.8 fL 39.0-49.9 04463-1) RDW-CV (test code = 15.0 % 12.0-15.5 788-0) PLT (test code = See_Comment H [Automated 777-3) message] The sy stem which generated this result transmitted reference range : 166 - 358 10*3/ ?L. The reference r funmi was not used to interpret this result as normal/abnormal . MPV (test code = 10.5 fL 9.5-12.9 83756-8) NRBC/100 WBC (test See_Comment [Automat ed code = 1444849943) message] The system which generated this result transmitted reference range : 0.0 - 10.0 /100 WBCs. The refer ence range was not u sed to interpret th is result as normal/abnormal . NRBC x10^3 (test code <0.01 See_Comment [Auto mated = 1997462275) message] The s ystem which generated this result transmitted reference range : 10*3/?L. The reference range was not used to interpret this result as normal/abnormal . GRAN MAT (NEUT) % 83.2 % (test code = 770-8) IMM GRAN % (test code 0.60 % = 0562161986) LYMPH % (test code = 8.5 % 736-9) MONO % (test code = 6.6 % 5905-5) EOS % (test code = 0.8 % 713-8) BASO % (test code = 0.3 % 706-2) GRAN MAT x10^3(ANC) 7.73 10*3/uL 1.88-7.09 H (test code = 1828350010) IMM GRAN x10^3 (test 0.06 10*3/uL 0.00-0.06 code = 5231401065) LYMPH x10^3 (test code 0.79 10*3/uL 1.32-3.29 L = 731-0) MONO x10^3 (test code 0.61 10*3/uL 0.33-0.92 = 742-7) EOS x10^3 (test code = 0.07 10*3/uL 0.03-0.39 711-2) BASO x10^3 (test code 0.03 10*3/uL 0.01-0.07 = 704-7) Lab Interpretation Abnormal (test code = 25363-8) [facility]. METABOLIC PANEL (59082)2021-11-09 23:32:45 Test Item Value Reference Range Interpretation Comments NA (test code = 135 mmol/L 135-145 4604078479) K (test code = 4.3 mmol/L 3.5-5.0 0484366647) CL (test code = 100 mmol/L 98-108 6805203348) CO2 TOTAL (test code 26 mmol/L 23-31 = 0729129587) AGAP (test code = 2-16 1442527041) BUN (test code = 8 mg/dL 7-23 8048359356) GLUCOSE (test code = 98 mg/dL 70-110 8615587231) CREATININE (test code 0.56 mg/dL 0.50-1.04 = 2125226663) TOTAL BILI (test code 0.5 mg/dL 0.1-1.1 = 7972606681) CALCIUM (test code = 8.7 mg/dL 8.6-10.6 1535673161) T PROTEIN (test code 7.7 g/dL 6.3-8.2 = 8369912429) ALBUMIN (test code = 4.7 g/dL 3.5-5.0 5778293406) ALK PHOS (test code = 82 U/L 34-122 0014446982) ALTv (test code = 14 U/L 5-35 1742-6) AST(SGOT) (test code 34 U/L 13-40 = 9250846496) eGFR (test code = mL/min/1.73m2 6035798039) ASHLEE (test code = ASHLEE) Association of [...] or urine or abnormalities in imaging tests). [facility] 23:32:25 Test Item Value Reference Range Interpretation Comments LIPASE (test code = 9496774824) 70 U/L 0-220 Lab Interpretation (test code = Normal 05657-9) [facility] [id number] 23:21:00 Test Item Value Reference Range Interpretation Comments POCT PREG (test code = 1605) NEGATIVE On board controls acceptable with PRESENT C Line (test code = 3574) POCT PREG LOT # (test code = 3575) [id number] POCT PREG TEST DATE (test code = 3576) Lab Interpretation (test code = Normal 80318-8) [facility] (NA, K, CL, CO2, GLUCOSE, BUN, CREATININE, CA)2021-01-29 11:56:16 Test Item Value Reference Range Interpretation Comments NA (test code = 140 mmol/L 135-145 2933325821) K (test code = 3.4 mmol/L 3.5-5.0 L 3730045194) CL (test code = 106 mmol/L 98-108 8022183854) CO2 TOTAL (test code = 27 mmol/L 23-31 6466939397) AGAP (test code = 2-16 4600260682) BUN (test code = 12 mg/dL 7-23 5842662547) GLUCOSE (test code = 90 mg/dL 70-110 7177233259) CREATININE (test code = 0.88 mg/dL 0.50-1.04 4974632996) CALCIUM (test code = 8.6 mg/dL 8.6-10.6 2977339027) eGFR (test code = mL/min/1.73m2 8365849051) ASHLEE (test code = ASHLEE) Association of [...] tests). Lab Interpretation Abnormal (test code = 28329-4) [facility] WITH [id number] 11:26:15 Test Item Value Reference Range Interpretation Comments WBC (test code = See_Comment [Automated 6590-2) message] The sy stem which generated this [...] RDW-SD (test code = 42.7 fL 39.0-49.9 56639-3) RDW-CV (test code = 14.1 % 12.0-15.5 788-0) PLT (test code = See_Comment [Automated 777-3) message] The sy stem which generated this result transmitted reference range : 166 - 358 10*3/ ?L. The reference r funmi was not used to interpret this result as normal/abnormal . MPV (test code = 10.5 fL 9.5-12.9 10716-7) NRBC/100 WBC (test See_Comment [Automat ed code = 3580823611) message] The system which generated this result transmitted reference range : 0.0 - 10.0 /100 WBCs. The refer ence range was not u sed to interpret th is result as normal/abnormal . NRBC x10^3 (test code <0.01 See_Comment [Auto mated = 7164867110) message] The s ystem which generated this result transmitted reference range : 10*3/?L. The reference range was not used to interpret this result as normal/abnormal . GRAN MAT (NEUT) % 68.3 % (test code = 770-8) IMM GRAN % (test code 0.70 % = 0956289695) LYMPH % (test code = 19.6 % 736-9) MONO % (test code = 7.1 % 5905-5) EOS % (test code = 3.8 % 713-8) BASO % (test code = 0.5 % 706-2) GRAN MAT x10^3(ANC) 6.23 10*3/uL 1.88-7.09 (test code = 3186022237) IMM GRAN x10^3 (test 0.06 10*3/uL 0.00-0.06 code = 1416757561) LYMPH x10^3 (test code 1.79 10*3/uL 1.32-3.29 = 731-0) MONO x10^3 (test code 0.65 10*3/uL 0.33-0.92 = 742-7) EOS x10^3 (test code = 0.35 10*3/uL 0.03-0.39 711-2) BASO x10^3 (test code 0.05 10*3/uL 0.01-0.07 = 704-7) Lab Interpretation Abnormal (test code = 70472-8) [facility] - Draw no more than 60 minutes before the 1100 dose.2021-01-29 05:02:45 Test Item Value Reference Range Interpretation Comments VANCO TROUGH (test code 7.6 ug/mL 10.0-20.0 L = 2408703291) ASHLEE (test code = ASHLEE) Toxic Range: ?>20 ug/mL 15-20 ug/mL is recommended for severe infection or when Vancomycin AURA is greater than or equal to 2. Lab Interpretation (test Abnormal code = 48148-1) [facility] (NA, K, CL, CO2, GLUCOSE, BUN, CREATININE, CA)2021-01-28 11:50:40 Test Item Value Reference Range Interpretation Comments NA (test code = 138 mmol/L 135-145 1790999884) K (test code = 4.2 mmol/L 3.5-5.0 5740206379) CL (test code = 104 mmol/L 98-108 8369787529) CO2 TOTAL (test code = 25 mmol/L 23-31 2671450535) AGAP (test code = 2-16 3329342810) BUN (test code = 7 mg/dL 7-23 5526033499) GLUCOSE (test code = 147 mg/dL 70-110 H 2020477590) CREATININE (test code = 0.44 mg/dL 0.50-1.04 L 4936155121) CALCIUM (test code = 9.0 mg/dL 8.6-10.6 3394497539) eGFR (test code = mL/min/1.73m2 2240430831) ASHLEE (test code = ASHLEE) Association of [...] tests). Lab Interpretation Abnormal (test code = 36709-1) [facility] Metabolic Panel (NA, K, CL, CO2, GLUCOSE, BUN, CREATININE, CA)2021-01-28 11:50:40 Test Item Value Reference Range Interpretation Comments NA (test code = 138 mmol/L 135-145 9139370279) K (test code = 4.2 mmol/L 3.5-5.0 2515004947) CL (test code = 104 mmol/L 98-108 5087662141) CO2 TOTAL (test code = 25 mmol/L 23-31 7186044310) AGAP (test code = 2-16 1261155252) BUN (test code = 7 mg/dL 7-23 4122953120) GLUCOSE (test code = 147 mg/dL 70-110 H 7859362133) CREATININE (test code = 0.44 mg/dL 0.50-1.04 L 2634440185) CALCIUM (test code = 9.0 mg/dL 8.6-10.6 8948522277) eGFR (test code = mL/min/1.73m2 1113144574) ASHLEE (test code = ASHLEE) Association of [...] tests). Lab Interpretation Abnormal (test code = 54704-1) [facility] with [id number] 11:08:37 Test Item Value Reference Range Interpretation [...] RDW-SD (test code = 41.9 fL 39.0-49.9 17268-7) RDW-CV (test code = 13.6 % 12.0-15.5 788-0) PLT (test code = See_Comment H [Automated 777-3) message] The sy stem which generated this result transmitted reference range : 166 - 358 10*3/ ?L. The reference r funmi was not used to interpret this result as normal/abnormal . MPV (test code = 10.6 fL 9.5-12.9 66863-8) NRBC/100 WBC (test See_Comment [Automat ed code = 5497054039) message] The system which generated this result transmitted reference range : 0.0 - 10.0 /100 WBCs. The refer ence range was not u sed to interpret th is result as normal/abnormal . NRBC x10^3 (test code <0.01 See_Comment [Auto mated = 4206977270) message] The s ystem which generated this result transmitted reference range : 10*3/?L. The reference range was not used to interpret this result as normal/abnormal . GRAN MAT (NEUT) % 87.6 % (test code = 770-8) IMM GRAN % (test code 0.40 % = 7596381291) LYMPH % (test code = 8.8 % 736-9) MONO % (test code = 2.8 % 5905-5) EOS % (test code = 0.1 % 713-8) BASO % (test code = 0.3 % 706-2) GRAN MAT x10^3(ANC) 9.81 10*3/uL 1.88-7.09 H (test code = 1017078157) IMM GRAN x10^3 (test 0.05 10*3/uL 0.00-0.06 code = 3584270856) LYMPH x10^3 (test code 0.98 10*3/uL 1.32-3.29 L = 731-0) MONO x10^3 (test code 0.31 10*3/uL 0.33-0.92 L = 742-7) EOS x10^3 (test code = <0.03 0.03-0.39 L 711-2) BASO x10^3 (test code 0.03 10*3/uL 0.01-0.07 = 704-7) Lab Interpretation Abnormal (test code = 57386-7) [facility] with [id number] 11:08:37 Test Item Value Reference Range Interpretation [...] RDW-SD (test code = 41.9 fL 39.0-49.9 35993-6) RDW-CV (test code = 13.6 % 12.0-15.5 788-0) PLT (test code = See_Comment H [Automated 777-3) message] The sy stem which generated this result transmitted reference range : 166 - 358 10*3/ ?L. The reference r funmi was not used to interpret this result as normal/abnormal . MPV (test code = 10.6 fL 9.5-12.9 59759-2) NRBC/100 WBC (test See_Comment [Automat ed code = [id number]) message] The system which generated this result transmitted reference range : 0.0 - 10.0 /100 WBCs. The refer ence range was not u sed to interpret th is result as normal/abnormal . NRBC x10^3 (test code <0.01 See_Comment [Auto mated = [id number]) message] The s ystem which generated this result transmitted reference range : 10*3/?L. The reference range was not used to interpret this result as normal/abnormal . GRAN MAT (NEUT) % 87.6 % (test code = 770-8) IMM GRAN % (test code 0.40 % = [id number]) LYMPH % (test code = 8.8 % 736-9) MONO % (test code = 2.8 % 5905-5) EOS % (test code = 0.1 % 713-8) BASO % (test code = 0.3 % 706-2) GRAN MAT x10^3(ANC) 9.81 10*3/uL 1.88-7.09 H (test code = 5937423479) IMM GRAN x10^3 (test 0.05 10*3/uL 0.00-0.06 code = 8020225852) LYMPH x10^3 (test code 0.98 10*3/uL 1.32-3.29 L = 731-0) MONO x10^3 (test code 0.31 10*3/uL 0.33-0.92 L = 742-7) EOS x10^3 (test code = <0.03 0.03-0.39 L 711-2) BASO x10^3 (test code 0.03 10*3/uL 0.01-0.07 = 704-7) Lab Interpretation Abnormal (test code = 45768-3) [facility]:23[facility]47Gian Negrete CRNA ? ? 01/27/2021 ?4:24 PMIntubationUrgency: elective Airway not difficult General Information and Staff Patient location during procedure: ORResident/HORTICULTURAL AGENT: Gian Negrete CRNAPerformed: resident/HORTICULTURAL AGENT Indications and Patient ConditionIndications for airway management: anesthesiaSpontaneous Ventilation: absentSedation level: deepPreoxygenated: yesPatient position: sniffingMILS maintained throughoutMask difficulty assessment: 0 - not attempted Final Airway DetailsFinal airway type: supraglottic airway Successful airway: Supraglottic airway: igel.Size 3 Number of attempts at approach: 1 Additional CommentsAirway dry intactUnTexas Health Harris Methodist Hospital Fort WorthCT PELVIS W CONTRAST 2021-01-27 12:56:13 A 6 cm right subcutaneous gluteal collection with layering fat, mayrepresent seroma or hematoma. However superimposed infection cannot beruled out. Clinical correlation is recommended. Preliminary Report Dictated by Resident: Cadence Thompson ?MD. Cristiane, have reviewed this study and agree with theabove report.EXAM: CT PELVIS WITH CONTRAST HISTORY: had a butt-lift surgery in [place] on12/23/20 and that it wasfeeling fine up [...] WITH CONTRASTHISTORY: had a butt-lift surgery in [place] on 12/23/20 and that it wasfeeling fine [...] reviewed this study and agree with theabove report.[facility]CT [facility] W [id number] 12:56:13 A 6 cm right subcutaneous gluteal collection with layering fat, mayrepresent seroma or hematoma. However superimposed infection cannot beruled out. Clinical correlation is recommended. Preliminary Report Dictated by Resident: Cadence Thompson MD., have reviewed this study and agree with theabove report.EXAM: CT PELVIS WITH CONTRAST HISTORY: had a butt-lift surgery in [place] on12/23/20 and that it wasfeeling fine up [...] area abutting the midright gluteus prashant muscle. [facility], Radiant Results Inft User - 01/27/2021 7:57 AM CDTFormatting of t his note might be different from the original.EXAM: CT PELVIS WITH CONTRASTHISTORY: had a butt-lift surgery in [place] on 12/23/20 and that it wasfeeling fine [...] reviewed this study and agree with theabove report.[facility] HospitalHEPATIC FUNCTION PANEL (50794) (ALB,T.PRO,BILI T,BU/BC,ALT,AST,ALK PHOS)2021-01-27 06:43:32 Test Item Value Reference Range Interpretation Comments TOTAL BILI (test code = 5776731516) 0.3 mg/dL 0.1-1.1 BILI UNCON (test code = 9804587435) 0.1 mg/dL 0.1-1.1 BILI CONJ (test code = 7940821998) 0.0 mg/dL 0.0-0.3 T PROTEIN (test code = 6220636691) 7.0 g/dL 6.3-8.2 ALBUMIN (test code = 5129027639) 3.8 g/dL 3.5-5.0 ALK PHOS (test code = 9814159247) 114 U/L 34-122 ALTv (test code = 1742-6) 16 U/L 5-35 AST(SGOT) (test code = 3801730887) 77 U/L 13-40 H Lab Interpretation (test code = Abnormal 78428-2) [facility] (45542) (ALB,T.PRO,BILI T,BU/BC,ALT,AST,ALK PHOS)2021-01-27 06:43:32 Test Item Value Reference Range Interpretation Comments TOTAL BILI (test code = 9049486417) 0.3 mg/dL 0.1-1.1 BILI UNCON (test code = 2035850682) 0.1 mg/dL 0.1-1.1 BILI CONJ (test code = 7668929373) 0.0 mg/dL 0.0-0.3 T PROTEIN (test code = 2721997306) 7.0 g/dL 6.3-8.2 ALBUMIN (test code = 1046781046) 3.8 g/dL 3.5-5.0 ALK PHOS (test code = 2426658901) 114 U/L 34-122 ALTv (test code = 1742-6) 16 U/L 5-35 AST(SGOT) (test code = 3491326472) 77 U/L 13-40 H Lab Interpretation (test code = Abnormal 49994-9) [facility] HospitalXR [facility] 1 [id number] 06:12:38 No acute cardiopulmonary process. RL: [id number]: [id number] Patient name: FLORES SMITHB: 1990 30 years [...] - 11:13 AM CDT Patient name: FLORES ANDRESB: 1990 30 years EXAMINATION: XR CHEST 1 VWOrdering Physician: ROSENDO VANCE CLINICAL HISTORY:fever COMPARISON:NoneTECHNIQUE:Single frontal view of the chest was performed. The technique of thisexamination is adequate.FINDINGS:Normal lung volumes. No focal infiltrate or consolidation. No effusion orpneumothorax. Heart size is normal without edema. Normal aortic contours.No acute osseous abnormality.IMPRESSIONNo acute cardiopulmonary process.RL: [id number]: [id number] signed by Maxime Bolaños at 01/27/2021 1:12 AMUnTexas Health Harris Methodist Hospital Fort WorthXR CHEST 1 [id number] 06:12:38 No acute cardiopulmonary process. RL: [id number]: [id number] Patient name: FLORES MCCARTHYB: 1990 30 years [...] acute osseous abnormality.IMPRESSIONNo acute cardiopulmonary process.RL: [id number]: [id number] signed by Maxime Bolaños at 01/27/2021 1:12 AMUnChildren's Medical [facility] Acid Whole [id number] 05:56:59 Test Item Value Reference Range Interpretation Comments LACTIC ACID (test code = 1.65 mmol/L 0.50-2.20 5596414588) Lab Interpretation (test code = Normal 72103-8) [facility] Acid Whole [id number] 05:56:59 Test Item Value Reference Range Interpretation Comments LACTIC ACID (test code = 1.65 mmol/L 0.50-2.20 0052379338) Lab Interpretation (test code = Normal 11390-9) [facility] HospitalCOVID-19 (ID NOW RAPID TESTING)2021-01-27 04:56:37 Test Item Value Reference Range Interpretation Comments SARS-CoV-2 Rapid ID NOW Positive Not Detected A (test code = 14790-0) ASHLEE (test code = ASHLEE) ID NOW COVID-19 Assay is an isothermal nucleic acid amplification test intended for the qualitative detection of nucleic acid from SARS-CoV-2 viral RNA in nasopharyngeal (MANAGER THERAPY) specimens. It is used under Emergency Use [...] indicated. Lab Interpretation Abnormal (test code = 58837-2) [facility] (ID NOW RAPID TESTING)2021-01-27 04:56:37 Test Item Value Reference Range Interpretation Comments SARS-CoV-2 Rapid ID NOW Positive Not Detected A (test code = 97052-0) ASHLEE (test code = ASHLEE) ID NOW COVID-19 Assay is an isothermal nucleic acid amplification test intended for the qualitative detection of nucleic acid from SARS-CoV-2 viral RNA in nasopharyngeal (MANAGER THERAPY) specimens. It is used under Emergency Use [...] indicated. Lab Interpretation Abnormal (test code = 56157-6) [facility] (NA, K, CL, CO2, GLUCOSE, BUN, CREATININE, CA)2021-01-27 02:53:47 Test Item Value Reference Range Interpretation Comments NA (test code = 140 mmol/L 135-145 6354758320) K (test code = 3.6 mmol/L 3.5-5.0 5619884972) CL (test code = 101 mmol/L 98-108 3290618739) CO2 TOTAL (test code = 31 mmol/L 23-31 7793345158) AGAP (test code = 2-16 1827397050) BUN (test code = 6 mg/dL 7-23 L 5671012987) GLUCOSE (test code = 130 mg/dL 70-110 H 8245199481) CREATININE (test code = 0.49 mg/dL 0.50-1.04 L 3894028504) CALCIUM (test code = 9.4 mg/dL 8.6-10.6 8254403543) eGFR (test code = mL/min/1.73m2 3055430264) ASHLEE (test code = ASHLEE) Association of [...] tests). Lab Interpretation Abnormal (test code = 42904-6) [facility] METABOLIC PANEL (NA, K, CL, CO2, GLUCOSE, BUN, CREATININE, CA)2021-01-27 02:53:47 Test Item Value Reference Range Interpretation Comments NA (test code = 140 mmol/L 135-145 9286807198) K (test code = 3.6 mmol/L 3.5-5.0 7594473372) CL (test code = 101 mmol/L 98-108 9910947253) CO2 TOTAL (test code = 31 mmol/L 23-31 3872958691) AGAP (test code = 2-16 5971761782) BUN (test code = 6 mg/dL 7-23 L 5332744391) GLUCOSE (test code = 130 mg/dL 70-110 H 1099898573) CREATININE (test code = 0.49 mg/dL 0.50-1.04 L 8234408304) CALCIUM (test code = 9.4 mg/dL 8.6-10.6 4126999867) eGFR (test code = mL/min/1.73m2 2510907050) ASHLEE (test code = ASHLEE) Association of [...] tests). Lab Interpretation Abnormal (test code = 85800-8) [facility] WITH [id number] 02:42:45 Test Item Value Reference Range Interpretation [...] RDW-SD (test code = 43.4 fL 39.0-49.9 65261-1) RDW-CV (test code = 14.1 % 12.0-15.5 788-0) PLT (test code = See_Comment [Automated 777-3) message] The sy stem which generated this result transmitted reference range : 166 - 358 10*3/ ?L. The reference r funmi was not used to interpret this result as normal/abnormal . MPV (test code = 10.8 fL 9.5-12.9 78068-3) NRBC/100 WBC (test See_Comment [Automat ed code = 4490621425) message] The system which generated this result transmitted reference range : 0.0 - 10.0 /100 WBCs. The refer ence range was not u sed to interpret th is result as normal/abnormal . NRBC x10^3 (test code <0.01 See_Comment [Auto mated = 8067385592) message] The s ystem which generated this result transmitted reference range : 10*3/?L. The reference range was not used to interpret this result as normal/abnormal . GRAN MAT (NEUT) % 70.5 % (test code = 770-8) IMM GRAN % (test code 0.60 % = 9998121343) LYMPH % (test code = 19.5 % 736-9) MONO % (test code = 5.6 % 5905-5) EOS % (test code = 3.4 % 713-8) BASO % (test code = 0.4 % 706-2) GRAN MAT x10^3(ANC) 7.35 10*3/uL 1.88-7.09 H (test code = 8921533746) IMM GRAN x10^3 (test 0.06 10*3/uL 0.00-0.06 code = 6913247296) LYMPH x10^3 (test code 2.03 10*3/uL 1.32-3.29 = 731-0) MONO x10^3 (test code 0.58 10*3/uL 0.33-0.92 = 742-7) EOS x10^3 (test code = 0.35 10*3/uL 0.03-0.39 711-2) BASO x10^3 (test code 0.04 10*3/uL 0.01-0.07 = 704-7) Lab Interpretation Abnormal (test code = 87762-1) [facility] WITH [id number] 02:42:45 Test Item Value Reference Range Interpretation Comments WBC (test code = See_Comment [Automated 2890-2) message] The sy stem which generated this result transmitted reference range : 4.30 - 11.10 10*3/?L. The reference range was not used to interpret this result as normal/abnormal . RBC (test code = See_Comment L [Automated 229-8) message] The sy stem which generated this [...] RDW-SD (test code = 43.4 fL 39.0-49.9 47688-5) RDW-CV (test code = 14.1 % 12.0-15.5 788-0) PLT (test code = See_Comment [Automated 777-3) message] The sy stem which generated this result transmitted reference range : 166 - 358 10*3/ ?L. The reference r funmi was not used to interpret this result as normal/abnormal . MPV (test code = 10.8 fL 9.5-12.9 31817-5) NRBC/100 WBC (test See_Comment [Automat ed code = 7696180271) message] The system which generated this result transmitted reference range : 0.0 - 10.0 /100 WBCs. The refer ence range was not u sed to interpret th is result as normal/abnormal . NRBC x10^3 (test code <0.01 See_Comment [Auto mated = 3305123813) message] The s ystem which generated this result transmitted reference range : 10*3/?L. The reference range was not used to interpret this result as normal/abnormal . GRAN MAT (NEUT) % 70.5 % (test code = 770-8) IMM GRAN % (test code 0.60 % = 9427648954) LYMPH % (test code = 19.5 % 736-9) MONO % (test code = 5.6 % 5905-5) EOS % (test code = 3.4 % 713-8) BASO % (test code = 0.4 % 706-2) GRAN MAT x10^3(ANC) 7.35 10*3/uL 1.88-7.09 H (test code = 6089894900) IMM GRAN x10^3 (test 0.06 10*3/uL 0.00-0.06 code = 8296115324) LYMPH x10^3 (test code 2.03 10*3/uL 1.32-3.29 = 731-0) MONO x10^3 (test code 0.58 10*3/uL 0.33-0.92 = 742-7) EOS x10^3 (test code = 0.35 10*3/uL 0.03-0.39 711-2) BASO x10^3 (test code 0.04 10*3/uL 0.01-0.07 = 704-7) Lab Interpretation Abnormal (test code = 50458-8) [facility] [id number] 02:30:00 Test Item Value Reference Range Interpretation Comments POCT PREG (test code = 1605) negative On board controls acceptable with present C Line (test code = 3574) POCT PREG LOT # (test code = 3575) [id number] POCT PREG TEST DATE (test 07/27/2022 code = 3576) Lab Interpretation (test code = Normal 34284-8) [facility] [id number] 02:30:00 Test Item Value Reference Range Interpretation Comments POCT PREG (test code = 1605) negative On board controls acceptable with present C Line (test code = 3574) POCT PREG LOT # (test code = 3575) [id number] POCT PREG TEST DATE (test 07/27/2022 code = 3576) Lab Interpretation (test code = Normal 67700-5) [facility] [id number] 02:23:17 Test Item Value Reference Range Interpretation Comments LACTIC ACID (test code = 3.15 mmol/L 0.50-2.20 H 3415063878) Lab Interpretation (test code = Abnormal 53924-7) [facility] Whole [id number] 02:23:17 Test Item Value Reference Range Interpretation Comments LACTIC ACID (test code = 3.15 mmol/L 0.50-2.20 H 5856011798) Lab Interpretation (test code = Abnormal 88545-9) [facility] [id number] 23:07:00 Test Item Value Reference Range Interpretation Comments POCT PREG (test code = 1605) Negative On board controls acceptable with C Yes Line (test code = 3574) POCT PREG LOT # (test code = 3575) POCT PREG TEST DATE (test code = 3576) [facility]
--- NOTE | 2023-04-27 22:19 | RAD REPORT ---
EXAM DESCRIPTION: CT - Head Brain Wo Cont - 04/27/2023 9:51 pm CLINICAL HISTORY: new onset headache COMPARISON: No comparisons TECHNIQUE: Noncontrast head CT images were obtained without IV contrast. Multiplanar reformats were generated and reviewed. All CT scans are performed using dose optimization technique as appropriate and may include automated exposure control or mA/KV adjustment according to patient size. FINDINGS: No intracranial hemorrhage, mass, or edema. Midline structures are unremarkable. Normal ventricular caliber for age. Basurto-white matter differentiation is preserved, without evidence of acute infarct. No abnormal extra- axial fluid collections. Mastoid air cells and visualized portions of the paranasal sinuses are clear. No acute bony findings. IMPRESSION: No evidence of an acute intracranial process.
[2023-04-27] MEDS ORDERED: NA CHLORIDE 0.9% 1,000 ML ONE (22:32)
[2023-04-27] MEDS ORDERED: METOCLOPRAMIDE 10 MG/2mL INJ ONE (22:32)
[2023-04-27] MEDS ORDERED: KETOROLAC 30 MG/ML INJ ONE (22:32)
[2023-04-27] MEDS ORDERED: DIPHENHYDRAMINE 50 MG/ML VIAL ONE (22:32)
[2023-04-27 23:13] LABS: Absolute Lymphocytes (CBC) 4.4 K/uL (0.7-4.9); Hematocrit 31.2 % (36.0-45.0); Lymphocytes % 36.8 % (15.3-44.8); MCV 70.6 fL (80-100); Platelets 270 thou/uL (152-406); RBC Red Blood Cell Count 4.42 M/uL (3.86-4.86)
[2023-04-27 23:27] LABS: Specific Gravity 1.008 (1.005-1.030); Urine Bacteria None Seen /HPF (<20); Urine Bilirubin NEGATIVE (Negative); Urine Blood Negative (Negative); Urine Clarity Turbid (Clear); Urine Color Colorless (Yellow); Urine Glucose NEGATIVE (Negative); Urine Protein NEGATIVE (Negative); Urine RBC None Seen /HPF (None Seen); Urine Urobilinogen Normal (Normal); Urine pH 7.5 (5.0-7.0)
[2023-04-27 23:31] LABS: Specific Gravity 1.008 (1.005-1.030)
[2023-04-27 23:39] LABS: ALT/SGPT 17 U/L (13-56); AST/SGOT 10 U/L (15-37); Albumin 3.3 g/dL (3.4-5.0); Alkaline Phosphatase 77 U/L (45-117); BUN Blood Urea Nitrogen 12 mg/dL (7-18); Bicarbonate 29 mEq/L (21-32); Bilirubin Total 0.2 mg/dL (0.2-1.0); Glomerular Filtration Rate 124 ml/min (=/>90); Glucose Level 91 mg/dL (74-106); NT PRO-BNP 9 pg/mL (<125); Potassium 3.9 mEq/L (3.5-5.1); Protein, Total 6.8 g/dL (6.4-8.2); Sodium Level 137 mEq/L (136-145)
[2023-04-27 23:49] LABS: Bilirubin Direct < 0.1 mg/dL (0-0.2); Bilirubin Indirect, Calculated ND mg/dL (0.2-0.8)
--- NOTE | 2023-04-28 00:24 | EDPHYS ---
Physician Documentation [facility] Name: Erika Conde Age: 32 yrs Sex: Female : 1990 Arrival Date: 04/27/2023 Time: 21:00 Bed 4 Private MD: ED Physician Viet Brown HPI: 04/27 21:21 This 32 yrs old Female presents to ER via Unassigned with complaints of Eye sp4 Pain, Headache, Dizziness. 04/28 00:14 Very pleasant 32-year-old female presents with acute posterior headache starting sp4 yesterday associated with dizziness and vomiting. Patient reports no prior history of headaches. Patient reports feeling unwell. Patient is Gibraltarian-speaking and interpretation utilized for conversation. Patient denied any fever, denied diarrhea, denied syncope,, had any prior medical history. Historical: - Allergies: 04/27 21:27 No Known Allergies; ap3 - PMHx: 21:27 Asthma; ap3 - Immunization history:: Client reports receiving the 2nd dose of the Covid vaccine. - Social history:: Smoking status: Patient denies any tobacco usage or history of. - Family history:: not pertinent. ROS: 04/28 00:14 Constitutional: Negative for fever, chills, and weight loss, Neuro: Negative for sp4 weakness, numbness, tingling, and seizure, positive for headaches Constitutional: Negative for fever, chills, and weight loss, positive for headache, dizziness, nausea or vomiting All other systems are negative. Exam: 00:14 Constitutional: This is a well developed, well nourished patient who is awake, alert, sp4 and in no acute distress. Head/Face: Normocephalic, atraumatic. Eyes: Pupils equal round and reactive to light, extra-ocular motions intact. Lids and lashes normal. Conjunctiva and sclera are not injected. Cornea within normal limits. Periorbital areas with no swelling, redness, or edema. ENT: Nares patent. No nasal discharge, no septal abnormalities noted. Tympanic membranes are normal and external auditory canals are clear. Oropharynx with no redness, swelling, or masses, exudates, or evidence of obstruction, uvula midline. Mucous membranes moist. Neck: Trachea midline, no thyromegaly or masses palpated, and no cervical lymphadenopathy. Supple, full range of motion without nuchal rigidity, or vertebral point tenderness. Chest/axilla: Normal chest wall appearance and motion. Nontender with no deformity. No lesions are appreciated. Cardiovascular: Regular rate and rhythm with a normal S1 and S2. No gallops, murmurs, or rubs. Normal PMI, no JVD. No pulse deficits. Respiratory: Lungs have equal breath sounds bilaterally, clear to auscultation and percussion. No rales, rhonchi or wheezes noted. No increased work of breathing, no retractions or nasal flaring. Abdomen/GI: Soft, non-tender, with normal bowel sounds. No distension or tympany. No guarding or rebound. No evidence of tenderness throughout. Back: No spinal tenderness. No costovertebral tenderness. Skin: Warm, dry with normal turgor. Normal color with no rashes, no lesions, and no evidence of cellulitis. MS/ Extremity: Pulses equal, no cyanosis. Neurovascular intact. Full, normal range of motion. Neuro: Awake and alert, GCS 15, oriented to person, place, time, and situation. Cranial nerves II-XII grossly intact. Motor strength 5/5 in all extremities. Sensory grossly intact. Psych: Awake, alert, with orientation to person, place and time. Behavior, mood, and affect are within normal limits 00:20 Eyes: Exam is negative for papilledema, abnormalities of symmetry, size, shape and sp4 reaction of the pupils, Normal bilateral funduscopy.. Vital Signs: 04/27 21:26 Pulse 73; Resp 18; Temp 98.9; Pulse Ox 100% ; Pain 10/10; ap3 23:09 BP 118 / 76; Pulse 70; Resp 17 S; Pulse Ox 100% on R/A; lg3 04/28 00:00 BP 95 / 47; Pulse 74; Resp 18; Pulse Ox 100% ; vc1 04/27 21:26 Pain Scale: Adult ap3 Visual Acuity: 04/27 22:37 Left Eye Pupil size 7 mm, Normal, React To Light, Reactive To Accomodation; Right Eye lg3 Pupil size 7 mm, Normal, React To Light, Reactive To Accomodation; Both Eyes Visual acuity 20/20; Without Lenses; MDM: 21:21 Patient medically screened. sp4 04/28 00:20 Data reviewed: vital signs, nurses notes, lab test result(s), Beta HCG: Neg CBC, sp4 electrolytes, hepatic panel, UPT: negative. 00:21 Differential diagnosis: Acute iritis of Acute glaucoma in ED course: CT head is normal, sp4 labs basically normal, patient's headache has resolved after medications. Pupils are equal and reactive, there is no sign of acute angle-closure glaucoma. Patient is stable for discharge home with as needed Naprosyn and as needed Fioricet for headache. . 04/27 21:22 Order name: Test, Urine; Complete Time: 00:09 sp4 04/27 21:22 Order name: Urinalysis W/Microscopic; Complete Time: 00:09 sp4 04/27 21:31 Order name: Basic Metabolic Panel; Complete Time: 00:09 sp4 04/27 21:31 Order name: CBC with Diff; Complete Time: 00:09 sp4 04/27 21:31 Order name: LFT's; Complete Time: 00:09 sp4 04/27 21:31 Order name: NT PRO-BNP; Complete Time: 00:09 sp4 04/27 23:09 Order name: Thyroid Stimulating Hormone; Complete Time: 00:09 EDMS 04/27 21:32 Order name: CT Head Brain wo Cont; Complete Time: 23:24 sp4 04/27 21:31 Order name: Saline Lock; Complete Time: 22:37 sp4 04/27 21:31 Order name: IV Saline Lock; Complete Time: 22:37 sp4 04/27 21:31 Order name: Labs collected and sent; Complete Time: 22:37 sp4 04/27 21:31 Order name: O2 Per Protocol; Complete Time: 22:37 sp4 04/27 21:31 Order name: O2 Sat Monitoring; Complete Time: 22:37 sp4 Administered Medications: 04/27 22:36 Drug: diphenhydrAMINE IVP 50 mg Route: IVP; Site: right forearm; lg3 23:09 Follow up: Response: No adverse reaction; Marked relief of symptoms lg3 22:36 Drug: NS 0.9% IV 1000 ml Route: IV; Rate: 1 bolus; Site: right forearm; lg3 22:37 Drug: Ketorolac IVP 30 mg Route: IVP; Site: right forearm; lg3 23:09 Follow up: Response: No adverse reaction; Marked relief of symptoms lg3 22:37 Drug: metoCLOPramide IVP 10 mg Route: IVP; Site: right forearm; lg3 23:09 Follow up: Response: No adverse reaction; Marked relief of symptoms lg3 Disposition Summary: 04/28/23 00:23 Discharge Ordered Location: Home sp4 Problem: new sp4 Symptoms: have improved sp4 Condition: Stable sp4 Diagnosis - Episodic tension-type headache sp4 - Acute dizziness, nausea and vomiting sp4 Followup: sp4 - With: Private Physician - When: As needed - Reason: Discharge Instructions: - Discharge Summary Sheet sp4 - General Headache Without Cause, Ogdm-ik-Thae sp4 Forms: - Patient Portal Instructions sp4 - Leadership Thank You Letter sp4 Prescriptions: - Fioricet 50-300-40 mg Oral capsule - take 1 capsule by ORAL route every 6 hours PRN headache; 30 capsule; Refills: sp4 0, Product Selection Permitted - naproxen 500 mg Oral tablet - take 1 tablet by ORAL route every 12 hours as needed for pain; 30 tablet; sp4 Refills: 0, Product Selection Permitted Signatures: Dispatcher [employer] Aria Siegel RN RN ap3 Ana Luisa Dueñas RN RN lg3 Viet Brown MD MD sp4 Corrections: (The following items were deleted from the chart) 23:09 21:34 THYROID STIMULAT HORMONE+C.LAB.BRZ ordered. EDMO EDMS
--- NOTE | 2023-04-28 00:24 | ER ---
Nurse's Notes [facility] Name: Erika Conde Age: 32 yrs Sex: Female : 1990 Arrival Date: 04/27/2023 Time: 21:00 Bed 4 Private MD: Diagnosis: Episodic tension-type headache;Acute dizziness, nausea and vomiting Presentation: 04/27 21:26 Chief complaint: Patient states: she has been having nausea, headache and eye pain ap3 since yesterday. patient states the pain is a 10/10 when you touch her head. Coronavirus screen: At this time, the client does not indicate any symptoms associated with coronavirus-19. Ebola Screen: (+) Ebola Screening. Initial Sepsis Screen: Does the patient meet any 2 criteria? No. Patient's initial sepsis screen is negative. Does the patient have a suspected source of infection? No. Patient's initial sepsis screen is negative. Risk Assessment: Do you want to hurt yourself or someone else? Patient reports no desire to harm self or others. Onset of symptoms was April 26, 2023. 21:26 Method Of Arrival: Ambulatory ap3 21:26 Acuity: GERHARD 3 ap3 Triage Assessment: 21:27 General: Appears uncomfortable, Behavior is calm, cooperative, appropriate for age. ap3 Pain: Complains of pain in left parietal area Pain currently is 10 out of 10 on a pain scale. EENT: Reports pain in right eye, left eye and left side of the back of head. Neuro: Level of Consciousness is awake, alert, obeys commands, Oriented to person, place, time, Appropriate for age Reports headache. Cardiovascular: Patient's skin is warm and dry. Respiratory: Airway is patent Respiratory effort is even, unlabored, Respiratory pattern is regular, symmetrical. GI: Reports nausea. Historical: - Allergies: 21:27 No Known Allergies; ap3 - PMHx: 21:27 Asthma; ap3 - Immunization history:: Client reports receiving the 2nd dose of the Covid vaccine. - Social history:: Smoking status: Patient denies any tobacco usage or history of. - Family history:: not pertinent. Screenin:28 [facility] ED Fall Risk Assessment (Adult) History of falling in the last 3 months, ap3 including since admission No falls in past 3 months (0 pts). Abuse screen: Denies threats or abuse. Nutritional screening: No deficits noted. Tuberculosis screening: No symptoms or risk factors identified. Assessment: 22:37 General: Appears in no apparent distress. uncomfortable, Behavior is calm, cooperative. lg3 Pain: Complains of pain in right eye and left eye. Neuro: No deficits noted. Childs Agitation-Sedation Scale (RASS): 0 - Alert and Calm Level of Consciousness is awake, alert, obeys commands, Oriented to person, place, time, situation, Reports headache. Cardiovascular: No deficits noted. Denies chest pain, shortness of breath, Capillary refill < 3 seconds Clubbing of nail beds is absent JVD is absent Patient's skin is warm and dry. Respiratory: No deficits noted. Airway is patent Respiratory effort is even, unlabored, Respiratory pattern is regular, symmetrical. GI: No deficits noted. Abdomen is round non-distended, Reports nausea. : No deficits noted. No signs and/or symptoms were reported regarding the genitourinary system. EENT: No deficits noted. No signs and/or symptoms were reported regarding the EENT system. Sclera/Cornea are clear in left eye and right eye. Derm: No deficits noted. No signs and/or symptoms reported regarding the dermatologic system. Skin is intact, is healthy with good turgor, Skin is dry, Skin is normal, Skin temperature is warm. Musculoskeletal: No deficits noted. No signs and/or symptoms reported regarding the musculoskeletal system. Circulation, motion, and sensation intact. Range of motion: intact in all extremities. 23:09 Reassessment: Patient appears in no apparent distress at this time. Patient and/or lg3 family updated on plan of care and expected duration. Pain level reassessed. Patient is alert, oriented x 3, equal unlabored respirations, skin warm/dry/pink. Patient states symptoms have improved. 04/28 00:30 Reassessment: Patient and/or family updated on plan of care and expected duration. Pain vc1 level reassessed. Patient is alert, oriented x 3, equal unlabored respirations, skin warm/dry/pink. Patient states feeling better. Patient states symptoms have improved. Vital Signs: 04/27 21:26 Pulse 73; Resp 18; Temp 98.9; Pulse Ox 100% ; Pain 10/10; ap3 23:09 BP 118 / 76; Pulse 70; Resp 17 S; Pulse Ox 100% on R/A; lg3 04/28 00:00 BP 95 / 47; Pulse 74; Resp 18; Pulse Ox 100% ; vc1 04/27 21:26 Pain Scale: Adult ap3 Visual Acuity: 04/27 22:37 Left Eye Pupil size 7 mm, Normal, React To Light, Reactive To Accomodation; Right Eye lg3 Pupil size 7 mm, Normal, React To Light, Reactive To Accomodation; Both Eyes Visual acuity 20/20; Without Lenses; ED Course: 21:02 Patient arrived in ED. mr 21:21 Viet Brown MD is Attending Physician. sp4 21:27 Triage completed. ap3 21:29 Arm band placed on right wrist. ap3 21:53 CT Head Brain wo Cont In Process Unspecified. EDMS 22:36 Inserted saline lock: 22 gauge in right forearm, using aseptic technique. Blood lg3 collected. 22:37 Patient has correct armband on for positive identification. Placed in gown. Bed in low lg3 position. Call light in reach. Side rails up X 1. Client placed on continuous cardiac and pulse oximetry monitoring. NIBP monitoring applied. site monitor on. Door closed. Noise minimized. Warm blanket given. Family accompanied patient. 22:37 Basic Metabolic Panel Sent. lg3 22:37 CBC with Diff Sent. lg3 22:37 LFT's Sent. lg3 22:37 NT PRO-BNP Sent. lg3 22:37 Patient maintains SpO2 saturation greater than 95% on room air. lg3 04/28 00:30 No provider procedures requiring assistance completed. vc1 00:44 IV discontinued, intact, bleeding controlled, No redness/swelling at site. Pressure vc1 dressing applied. Administered Medications: 04/27 22:36 Drug: diphenhydrAMINE IVP 50 mg Route: IVP; Site: right forearm; lg3 23:09 Follow up: Response: No adverse reaction; Marked relief of symptoms lg3 22:36 Drug: NS 0.9% IV 1000 ml Route: IV; Rate: 1 bolus; Site: right forearm; lg3 22:37 Drug: Ketorolac IVP 30 mg Route: IVP; Site: right forearm; lg3 23:09 Follow up: Response: No adverse reaction; Marked relief of symptoms lg3 22:37 Drug: metoCLOPramide IVP 10 mg Route: IVP; Site: right forearm; lg3 23:09 Follow up: Response: No adverse reaction; Marked relief of symptoms lg3 Medication: 04/28 00:30 VIS not applicable for this client. vc1 Outcome: 00:23 Discharge ordered by . sp4 00:30 Condition: good vc1 00:44 Discharged to home ambulatory, with significant other. vc1 00:44 Discharge instructions given to patient, Instructed on discharge instructions, follow up and referral plans. medication usage, Demonstrated understanding of instructions, follow-up care. 00:46 Patient left the ED. vc1 Signatures: Dispatcher [employer] EDMS Elena RussAria, RN RN ap3 Ana Luisa Dueñas RN RN lg3 Isabel Robles RN RN vc1 Viet Brown MD MD sp4 Corrections: (The following items were deleted from the chart) 04/27 23:09 22:37 THYROID STIMULAT HORMONE+[email or web address].BRZ drawn and sent. 3 [facility]
== END 2023-04-28 00:46 | disposition home or self-care (01) ==
LOC: ER 21:00
DX: G44.219 Episodic tension-type headache, not intractable (principal); R42 Dizziness and giddiness; R11.2 Nausea with vomiting, unspecified
CPT/HCPCS: 36415; 70450; 80048; 80076; 81001; 81025; 83880; 84443; 85025; 96374; 96375; 99285; J1200; J2765; J7030

== ENCOUNTER → 2023-10-23 | Emergency (ER) | payer SELFPAY ==
[~2023-10-23] MED LIST: ACETAMINOPHEN 500 MG TAB ONE; FAMOTIDINE 20 MG/2 ML VIAL IV ONE; NA CHLORIDE 0.9% 1,000 ML ONE; ONDANSETRON 4 MG/2 ML VIAL ONE
--- OUTSIDE RECORDS SUMMARY | 2023-10-23 03:34 | XMS REPORT | Continuity of Care Document ---
Author Name Unknown Address [address] [facility] [address] [place] [address] [facility] thconnect Address [address] [facility] [address] [place] [address] Care Team Providers Care [place] Name Role Phone JACQUELINE VILLALOBOS Primary Care Physician Unav ailable JACQUELINE VILLALOBOS Attending Clinician Unavail able HANH MCDONALD Attending Clinician Unavailable [facility]st Attending Clinician Unavailable Hanh Mcdonald MD Attending Clinician [phone] SARAH ROBB Attending Clinician Unavailable Sarah Robb MD Attending Clinician [phone] [facility] Attending Clinician Unavailable Wilfredo Jacqueline MENDIETA Attending Clinician + LEE ANN HUSSEIN Attending Clinician Unavailable Lee Ann Hussein MD Attending Clinician [phone] MISTY HOOKER Attending Clinician Unavailable Misty Tineo Attending Clinician [phone] WYATT HUGGINS Attending Clinician Unavailab OTILIA Ibrahim Attending Clinician Unavailable Otilia Ortiz Attending Clinician [phone] PENNY HOLCOMB Attending Clinician Unavailable Penny Holcomb MD Attending Clinician [phone] Eder RN, Elena Holm Attending Clinician [phone] Yaima Julio Attending Clinician [phone] Rosendo Vance MD Attending Clinician [phone] Toby Pruitt MD Attending Clinician [phone] Visit, [facility] Nurse Attending Clinician Unava ilable Doctor Unassigned, [place] Attending Clinician U navailable LEE ANN HUSSEIN Admitting Clinician Unavailable MISTY HOOKER Admitting Clinician Unavailable OTILIA BRITTON Admitting Clinician Unavailable Madina CARD, [place] Admitting Clinician [phone] Payers Payer Name Policy Type Policy Number Effective Date Expirati on Date Source DEWAYNE MOM [employer]IP [employer] [id number] 2022 00:00:00 Problems Condition Name Condition Details Condition Category Status Onset Date Resolution Date Last Treatment Date Treating Clinician Comments Source Miscarriag e Miscarriag e Disease Active 09-26 00:00: 00 Overview: Formattin g of this note might be different from the original. Recent beta at [facility] Complete Complete Disease Active 09-26 00:00: 00 Overview: Formattin g of this note might be different from the original. Recent beta at [facility] Abnormal maternal glucose tolerance, antepartum Abnormal maternal glucose tolerance, antepartum Disease Active 09-23 00:00: 00 Overview: Formattin g of this note might be different from the original. Pending 3hr gtt [facility] Supervisio n of high-risk Supervisio n of high-risk Disease Active 09-21 00:00: 00 [facility] Vaginal bleeding during Vaginal bleeding during Disease Active 09-21 00:00: 00 [facility] Trichomona l vaginitis during Trichomona l vaginitis during Disease Active 09-21 00:00: 00 Overview: Formattin g of this note might be different from the original. Dx at the ED on meds, pending demi [facility] UTI in UTI in Disease Active 09-21 00:00: 00 Overview: Formattin g of this note might be different from the original. Dx at the ED on meds, pending demi [facility] Multiparit y Multiparit y Disease Active 09-21 00:00: 00 [facility] Cellulitis of right buttock Cellulitis of right buttock Disease Active -02 00:00: 00 [facility] Obesity in Obesity in Disease Active 10-19 00:00: 00 [facility] Well woman exam Well woman exam Disease Active 10-19 00:00: 00 [facility] Contracept hermila management Contracept hermila management Disease Active 10-19 00:00: 00 [facility] Obesity (BMI 30-39.9) Obesity (BMI 30-39.9) Disease Active 10-19 00:00: 00 [facility] Contracept hermila management Contracept hermila management Disease Active 10-19 00:00: 00 [facility] Vaginal symptom Vaginal symptom Disease Active 1-15 00:00: 00 [facility] History of asthma History of asthma Disease Active 1-04 00:00: 00 [facility] Allergies, Adverse Reactions, Alerts Allergy Name Allergy Type Status Severity Reaction(s) Onset Date Inactive Date Treating Clinician Comments Source NO KNOWN ALLERGIE S Drug Class Active [facility] Social History Social Habit Start Date Stop Date Quantity Comments Source ASSERTION 2022-08-25 00:00:00 [facility] Alcohol intake 2022-10-13 00:00:00 2022-10-13 00:00:00 Current non-drinker of alcohol (finding) [facility] Exposure to SARS-CoV-2 (event) 2022-09-17 00:00:00 2022-09-27 08:53:00 Not sure [facility] Tobacco use and exposure 2022-09-21 00:00:00 2022-09-21 00:00:00 Smokeless tobacco non-user [facility] Sex Assigned At 1990 00:00:00 1990 00:00:00 [facility] Smoking Status Start Date Stop Date Source Never smoked tobacco [facility] Medications Ordered Medication Name Filled Medication Name Start Date Stop Date Current Medication? Ordering Clinician Indication Dosage Frequency Signature (SIG) Comments Components Source ibuprofen (IBU) tablet 800 mg 09-27 16:30: 00 09-27 15:49 :00 No [id number] 800mg [facility] ibuprofen (IBU) tablet 800 mg 09-27 16:30: 00 09-27 15:49 :00 No [id number] 800mg 800 mg, Oral, ONCE, 1 dose, On Mon09/27/22 at 1030, Routine [facility] ibuprofen 600 mg tablet 09-27 00:00: 00 Yes [id number] 600mg Take 1 tablet by mouth every 6 (six) hours as needed (alternate with tylenol for pain) for up to 20 doses. [facility] ibuprofen 600 mg tablet 09-27 00:00: 00 Yes [id number] 600mg Take 1 tablet by mouth every 6 (six) hours as needed (alternate with tylenol for pain) for up to 20 doses. [facility] ALBUTEROL SULFATE INHALE 09-21 14:43: 24 09-21 00:00 :00 No 1{puff} Inhale 1 Puff every 8 (eight) hours as needed for Other (Wheezing) . [facility] ALBUTEROL SULFATE INHALE 09-21 14:43: 24 09-21 00:00 :00 No 1{puff} Inhale 1 Puff every 8 (eight) hours as needed for Other (Wheezing) . [facility] Nitrofurant oin&Nit. Macrocryst (MACROBID) 100 mg capsule 09-20 00:00: 00 Yes [id number] 100mg Take 1 capsule by mouth 2 (two) times daily. [facility] Nitrofurant oin&Nit. Macrocryst (MACROBID) 100 mg capsule 09-20 00:00: 00 Yes [id number] 100mg Take 1 capsule by mouth 2 (two) times daily. [facility] metroNIDAZO LE 500 mg tablet 0 09-20 00:00: 00 Yes TAKE 4 TABLETS BY MOUTH ONCE DAILY NOW FOR 1 DOSE [facility] Nitrofurant oin&Nit. Macrocryst (MACROBID) 100 mg capsule 2022-0 09-20 00:00: 00 Yes [id number] 100mg Take 1 capsule by mouth 2 (two) times daily. [facility] metroNIDAZO LE 500 mg tablet 2022-0 09-20 00:00: 00 Yes TAKE 4 TABLETS BY MOUTH ONCE DAILY NOW FOR 1 DOSE [facility] Nitrofurant oin&Nit. Macrocryst (MACROBID) 100 mg capsule 2022-0 09-20 00:00: 00 Yes [id number] 100mg Take 1 capsule by mouth 2 (two) times daily. [facility] metroNIDAZO LE 500 mg tablet 2022-0 09-20 00:00: 00 Yes TAKE 4 TABLETS BY MOUTH ONCE DAILY NOW FOR 1 DOSE [facility] Nitrofurant oin&Nit. Macrocryst (MACROBID) 100 mg capsule 2022-0 09-20 00:00: 00 Yes [id number] 100mg Take 1 capsule by mouth 2 (two) times daily. [facility] metroNIDAZO LE 500 mg tablet 2022-0 09-20 00:00: 00 Yes TAKE 4 TABLETS BY MOUTH ONCE DAILY NOW FOR 1 DOSE [facility] Nitrofurant oin&Nit. Macrocryst (MACROBID) 100 mg capsule 2022-0 09-20 00:00: 00 Yes [id number] 100mg Take 1 capsule by mouth 2 (two) times daily. [facility] metroNIDAZO LE 500 mg tablet 2022-0 09-20 00:00: 00 Yes TAKE 4 TABLETS BY MOUTH ONCE DAILY NOW FOR 1 DOSE [facility] Nitrofurant oin&Nit. Macrocryst (MACROBID) 100 mg capsule 2022-0 24 00:00: 00 Yes [id number] 100mg Take 1 capsule by mouth 2 (two) times daily. [facility] metroNIDAZO LE 500 mg tablet 09-20 00:00: 00 Yes TAKE 4 TABLETS BY MOUTH ONCE DAILY NOW FOR 1 DOSE [facility] Nitrofurant oin&Nit. Macrocryst (MACROBID) 100 mg capsule 09-20 00:00: 00 Yes [id number] 100mg Take 1 capsule by mouth 2 (two) times daily. [facility] metroNIDAZO LE 500 mg tablet 09-20 00:00: 00 Yes TAKE 4 TABLETS BY MOUTH ONCE DAILY NOW FOR 1 DOSE [facility] Nitrofurant oin&Nit. Macrocryst (MACROBID) 100 mg capsule 09-20 00:00: 00 Yes [id number] 100mg Take 1 capsule by mouth 2 (two) times daily. [facility] metroNIDAZO LE 500 mg tablet 09-20 00:00: 00 Yes TAKE 4 TABLETS BY MOUTH ONCE DAILY NOW FOR 1 DOSE [facility] Nitrofurant oin&Nit. Macrocryst (MACROBID) 100 mg capsule 09-20 00:00: 00 Yes [id number] 100mg Take 1 capsule by mouth 2 (two) times daily. [facility] metroNIDAZO LE 500 mg tablet 09-20 00:00: 00 Yes TAKE 4 TABLETS BY MOUTH ONCE DAILY NOW FOR 1 DOSE [facility] NaCl 0.9% (NS) bolus infusion 1,000 mL 11-09 23:45: 00 11-10 01:15 :00 No 1000mL at 999 mL/hr, 1,000 mL, IV Infusion, ONCE, 1 dose, On Mon11/09/21 at 1845, MICHAELA [facility] ketorolac (TORADOL) injection 30 mg 11-09 23:45: 00 11-09 23:36 :00 No 30mg 30 mg, Slow IV Push, ONCE, 1 dose, On Mon11/09/21 at 1845, MICHAELA [facility] ondansetron (ZOFRAN (PF)) injection 4 mg 2022-0 3-15 23:45: 00 -15 23:36 :00 No 4mg 4 mg, Slow IV Push, ONCE, 1 dose, On Mon11/09/21 at 1845, MICHAELA [facility] benzonatate 100 mg capsule 2-0 3-15 00:00: 00 Yes [id number] 100mg Take 1 capsule by mouth 3 (three) times daily as needed for Cough. [facility] ondansetron (ZOFRAN) 4 mg tablet 2021-0 3-15 00:00: 00 Yes [id number] 4mg Take 1 tablet by mouth every 8 (eight) hours as needed for Nausea and Vomiting (N/V). [facility] benzonatate 100 mg capsule 2-0 3-15 00:00: 00 Yes [id number] 100mg Take 1 capsule by mouth 3 (three) times daily as needed for Cough. [facility] ondansetron (ZOFRAN) 4 mg tablet 2021-0 3-15 00:00: 00 Yes [id number] 4mg Take 1 tablet by mouth every 8 (eight) hours as needed for Nausea and Vomiting (N/V). [facility] benzonatate 100 mg capsule 2-0 3-15 00:00: 00 Yes [id number] 100mg Take 1 capsule by mouth 3 (three) times daily as needed for Cough. [facility] ondansetron (ZOFRAN) 4 mg tablet 2-0 3-15 00:00: 00 Yes [id number] 4mg Take 1 tablet by mouth every 8 (eight) hours as needed for Nausea and Vomiting (N/V). [facility] benzonatate 100 mg capsule 2-0 3-15 00:00: 00 Yes [id number] 100mg Take 1 capsule by mouth 3 (three) times daily as needed for Cough. [facility] ondansetron (ZOFRAN) 4 mg tablet 2-0 3-15 00:00: 00 Yes [id number] 4mg Take 1 tablet by mouth every 8 (eight) hours as needed for Nausea and Vomiting (N/V). [facility] benzonatate 100 mg capsule 2-0 3-15 00:00: 00 Yes [id number] 100mg Take 1 capsule by mouth 3 (three) times daily as needed for Cough. [facility] ondans[facility]ron (ZOFRAN) 4 mg tablet 2-0 3-15 00:00: 00 Yes [id number] 4mg Take 1 tablet by mouth every 8 (eight) hours as needed for Nausea and Vomiting (N/V). [facility] benzon[facility]ate [facility] mg capsule 2022-0 3-15 00:00: 00 Yes [id number] 100mg Take 1 capsule by mouth 3 (three) times daily as needed for Cough. [facility] ondansetron (ZOFRAN) 4 mg tablet 2-0 3-15 00:00: 00 Yes [id number] 4mg Take 1 tablet by mouth every 8 (eight) hours as needed for Nausea and Vomiting (N/V). [facility] benzonatate 100 mg capsule 2-0 3-15 00:00: 00 Yes [id number] 100mg Take 1 capsule by mouth 3 (three) times daily as needed for Cough. [facility] ondansetron (ZOFRAN) 4 mg tablet 2-0 3-15 00:00: 00 Yes [id number] 4mg Take 1 tablet by mouth every 8 (eight) hours as needed for Nausea and Vomiting (N/V). [facility] benzonatate 100 mg capsule 2-0 3-15 00:00: 00 Yes [id number] 100mg Take 1 capsule by mouth 3 (three) times daily as needed for Cough. [facility] ondansetron (ZOFRAN) 4 mg tablet 2-0 3-15 00:00: 00 Yes [id number] 4mg Take 1 tablet by mouth every 8 (eight) hours as needed for Nausea and Vomiting (N/V). [facility] benzonatate 100 mg capsule 2022-0 3-15 00:00: 00 Yes [id number] 100mg Take 1 capsule by mouth 3 (three) times daily as needed for Cough. [facility] ondansetron (ZOFRAN) 4 mg tablet 2022-0 3-15 00:00: 00 Yes [id number] 4mg Take 1 tablet by mouth every 8 (eight) hours as needed for Nausea and Vomiting (N/V). [facility] benzonatate 100 mg capsule 2021-0 3-15 00:00: 00 Yes [id number] 100mg Take 1 capsule by mouth 3 (three) times daily as needed for Cough. [facility] ondansetron (ZOFRAN) 4 mg tablet 2021-0 3-15 00:00: 00 Yes [id number] 4mg Take 1 tablet by mouth every 8 (eight) hours as needed for Nausea and Vomiting (N/V). [facility] benzonatate 100 mg capsule 2021-0 3-15 00:00: 00 Yes [id number] 100mg Take 1 capsule by mouth 3 (three) times daily as needed for Cough. [facility] ondansetron (ZOFRAN) 4 mg tablet 0 3-15 00:00: 00 Yes [id number] 4mg Take 1 tablet by mouth every 8 (eight) hours as needed for Nausea and Vomiting (N/V). [facility] predniSONE 20 mg tablet 0 3-15 00:00: 00 11-15 04:59 :00 No [id number] 40mg Take 2 tablets by mouth daily for 5 days. [facility] ipratropium -albuteroL (DUONEB) 0.5 mg-3 mg(2.5 mg base)/3 mL nebulizer solution 3 mL 2020-0810 09:30: 00 08-06 08:37 :00 No 3mL 3 mL, Inhalation , ONCE, 1 dose, On Mon08/06/21 at 0330, Routine [facility] dexamethaso ne (DECADRON PHOSPHATE) injection 10 mg 2020-0810 09:30: 00 08-06 08:27 :00 No 10mg 10 mg, Oral, ONCE, 1 dose, On Mon08/06/21 at 0330, STAT [facility] ipratropium -albuteroL (DUONEB) 0.5 mg-3 mg(2.5 mg base)/3 mL nebulizer solution 3 mL 2020-08 07:45: 00 08-06 06:51 :00 No 3mL 3 mL, Inhalation , ONCE, 1 dose, On Mon08/06/21 at 0145, Routine [facility] predniSONE 50 mg tablet 2020-08 00:00: 00 Yes [id number] 50mg Take 1 tablet by mouth daily. [facility] albuterol 90 mcg/actuati on inhaler 2020-08 00:00: 00 Yes [id number] 2{puff} Inhale 2 Puffs every 4 (four) hours as needed for Wheezing or Shortness of Breath. [facility] albuterol 2.5 mg /3 mL (0.083 %) nebulizer solution 2020-08 00:00: 00 Yes [id number] 2.5mg Inhale 3 mL every 4 (four) hours. May also nebulize one extra every 6 hours. [facility] albuterol 90 mcg/actuati on inhaler 2020-08 00:00: 00 Yes [id number] 2{puff} Inhale 2 Puffs every 4 (four) hours as needed for Wheezing or Shortness of Breath. [facility] albuterol 2.5 mg /3 mL (0.083 %) nebulizer solution 2020-08 00:00: 00 Yes [id number] 2.5mg Inhale 3 mL every 4 (four) hours. May also nebulize one extra every 6 hours. [facility] albuterol 90 mcg/actuati on inhaler 2020-08 00:00: 00 Yes [id number] 2{puff} Inhale 2 Puffs every 4 (four) hours as needed for Wheezing or Shortness of Breath. [facility] albuterol 2.5 mg /3 mL (0.083 %) nebulizer solution 2020-08 00:00: 00 Yes [id number] 2.5mg Inhale 3 mL every 4 (four) hours. May also nebulize one extra every 6 hours. [facility] albuterol 90 mcg/actuati on inhaler 2020-08 00:00: 00 Yes [id number] 2{puff} Inhale 2 Puffs every 4 (four) hours as needed for Wheezing or Shortness of Breath. [facility] albuterol 90 mcg/actuati on inhaler 2020-08 2- 00:00: 00 Yes [id number] 2{puff} Inhale 2 Puffs every 4 (four) hours as needed for Wheezing or Shortness of Breath. [facility] albuterol 90 mcg/actuati on inhaler 2020-08 2 00:00: 00 Yes [id number] 2{puff} Inhale 2 Puffs every 4 (four) hours as needed for Wheezing or Shortness of Breath. [facility] albuterol 90 mcg/actuati on inhaler 2020-08 00:00: 00 Yes [id number] 2{puff} Inhale 2 Puffs every 4 (four) hours as needed for Wheezing or Shortness of Breath. [facility] albuterol 90 mcg/actuati on inhaler 2020-08 00:00: 00 Yes [id number] 2{puff} Inhale 2 Puffs every 4 (four) hours as needed for Wheezing or Shortness of Breath. [facility] albuterol 90 mcg/actuati on inhaler 2020-08 00:00: 00 Yes [id number] 2{puff} Inhale 2 Puffs every 4 (four) hours as needed for Wheezing or Shortness of Breath. [facility] albuterol 90 mcg/actuati on inhaler 2020-08 2 00:00: 00 Yes [id number] 2{puff} Inhale 2 Puffs every 4 (four) hours as needed for Wheezing or Shortness of Breath. [facility] albuterol 90 mcg/actuati on inhaler 2020-08 2 00:00: 00 Yes [id number] 2{puff} Inhale 2 Puffs every 4 (four) hours as needed for Wheezing or Shortness of Breath. [facility] albuterol 90 mcg/actuati on inhaler 2020-08 2 00:00: 00 Yes [id number] 2{puff} Inhale 2 Puffs every 4 (four) hours as needed for Wheezing or Shortness of Breath. [facility] albuterol 2.5 mg /3 mL (0.083 %) nebulizer solution 2020-08 00:00: 00 09-21 00:00 :00 No [id number] 2.5mg Inhale 3 mL every 4 (four) hours. May also nebulize one extra every 6 hours. [facility] albuterol 2.5 mg /3 mL (0.083 %) nebulizer solution 2020-08 00:00: 00 09-21 00:00 :00 No [id number] 2.5mg Inhale 3 mL every 4 (four) hours. May also nebulize one extra every 6 hours. [facility] predniSONE 50 mg tablet 2020-08 00:00: 00 11-09 00:00 :00 No [id number] 50mg Take 1 tablet by mouth daily. [facility] ALBUTEROL SULFATE INHALE 02-16 21:27: 26 Yes 1{puff} Inhale 1 Puff every 8 (eight) hours as needed for Other (Wheezing) . [facility] ALBUTEROL SULFATE INHALE 02-16 21:27: 26 Yes 1{puff} Inhale 1 Puff every 8 (eight) hours as needed for Other (Wheezing) . [facility] ALBUTEROL SULFATE INHALE 02-16 16:27: 26 Yes 1{puff} Inhale 1 Puff every 8 (eight) hours as needed for Other (Wheezing) . [facility] ALBUTEROL SULFATE INHALE 02-16 16:27: 26 Yes 1{puff} Inhale 1 Puff every 8 (eight) hours as needed for Other (Wheezing) . [facility] ALBUTEROL SULFATE INHALE 02-16 16:27: 26 Yes 1{puff} Inhale 1 Puff every 8 (eight) hours as needed for Other (Wheezing) . [facility] ALBUTEROL SULFATE INHALE 0 01-29 17:25: 36 Yes 1{puff} Inhale 1 Puff every 8 (eight) hours as needed for Other (Wheezing) . [facility] ALBUTEROL SULFATE INHALE 01-29 17:25: 36 Yes 1{puff} Inhale 1 Puff every 8 (eight) hours as needed for Other (Wheezing) . [facility] ALBUTEROL SULFATE INHALE 01-29 17:25: 36 Yes 1{puff} Inhale 1 Puff every 8 (eight) hours as needed for Other (Wheezing) . [facility] KCL (KLOR-CON M20) tablet 40 mEq 01-29 15:30: 00 01-29 16:35 :00 No [id number] 40 mEq, Oral, ONCE, 1 dose, Mon01/29/21 at 1030, Routine [facility] morpHINE injection 2 mg 01-29 05:30: 00 01-29 04:25 :00 No 2mg 2 mg, Slow IV Push, ONCE, 1 dose, Mon01/29/21 at 0030, Routine [facility] acidophilus 100 million cell tablet 01-29 00:00: 00 Yes [id number] 1g Take 1 tablet by mouth 2 (two) times daily. [facility] acidophilus 100 million cell tablet 01-29 00:00: 00 Yes [id number] 1g Take 1 tablet by mouth 2 (two) times daily. [facility] acidophilus 100 million cell tablet 01-29 00:00: 00 Yes [id number] 1g Take 1 tablet by mouth 2 (two) times daily. [facility] acidophilus 100 million cell tablet 01-29 00:00: 00 Yes [id number] 1g Take 1 tablet by mouth 2 (two) times daily. [facility] acidophilus 100 million cell tablet 01-29 00:00: 00 Yes [id number] 1g Take 1 tablet by mouth 2 (two) times daily. [facility] acidophilus 100 million cell tablet 01-29 00:00: 00 Yes [id number] 1g Take 1 tablet by mouth 2 (two) times daily. [facility] acidophilus 100 million cell tablet 01-29 00:00: 00 Yes [id number] 1g Take 1 tablet by mouth 2 (two) times daily. [facility] acidophilus [facility] million cell tablet 01-29 00:00: 00 Yes [id number] 1g Take 1 tablet by mouth 2 (two) times daily. [facility] acidophilus 100 million cell tablet 01-29 00:00: 00 Yes [id number] 1g Take 1 tablet by mouth 2 (two) times daily. [facility] acidophilus 100 million cell tablet 01-29 00:00: 00 Yes [id number] 1g Take 1 tablet by mouth 2 (two) times daily. [facility] acidophilus 100 million cell tablet 01-29 00:00: 00 Yes [id number] 1g Take 1 tablet by mouth 2 (two) times daily. [facility] acidophilus 100 million cell tablet 01-29 00:00: 00 Yes [id number] 1g Take 1 tablet by mouth 2 (two) times daily. [facility] acidophilus 100 million cell tablet 01-29 00:00: 00 Yes [id number] 1g Take 1 tablet by mouth 2 (two) times daily. [facility] acidophilus 100 million cell tablet 01-29 00:00: 00 Yes [id number] 1g Take 1 tablet by mouth 2 (two) times daily. [facility] acidophilus 100 million cell tablet 01-29 00:00: 00 Yes [id number] 1g Take 1 tablet by mouth 2 (two) times daily. [facility] acidophilus 100 million cell tablet 01-29 00:00: 00 Yes [id number] 1g Take 1 tablet by mouth 2 (two) times daily. [facility] acidophilus 100 million cell tablet 01-29 00:00: 00 Yes [id number] 1g Take 1 tablet by mouth 2 (two) times daily. [facility] sulfamethox azole-trime thoprim (BACTRIM DS) 800-160 mg per tablet 01-29 00:00: 00 02-06 04:59 :00 No [id number] 1{tbl} Take 1 tablet by mouth 2 (two) times daily for 7 days. [facility] sulfamethox azole-trime thoprim (BACTRIM DS) 800-160 mg per tablet 01-29 00:00: 00 02-06 04:59 :00 No [id number] 1{tbl} Take 1 tablet by mouth 2 (two) times daily for 7 days. [facility] sulfamethox azole-trime thoprim (BACTRIM DS) 800-160 mg per tablet 01-29 00:00: 00 02-06 04:59 :00 No [id number] 1{tbl} Take 1 tablet by mouth 2 (two) times daily for 7 days. [facility] ALBUTEROL SULFATE INHALE 01-28 14:37: 52 Yes 1{puff} Inhale 1 Puff every 8 (eight) hours as needed for Other (Wheezing) . [facility] ALBUTEROL SULFATE INHALE 01-28 14:37: 52 Yes 1{puff} Inhale 1 Puff every 8 (eight) hours as needed for Other (Wheezing) . [facility] albuterol (PROVENTIL) 2.5 mg /3 mL (0.083 %) nebulizer solution 2.5 mg 01-28 14:37: 36 Yes 2.5mg 2.5 mg, Inhalation , Q6HPRN, Starting Poppy 01/28/21 at 0937, Until Discontinu ed, Shortness of Breath, Wheezing [facility] albuterol (PROVENTIL) 2.5 mg /3 mL (0.083 %) nebulizer solution 2.5 mg 01-28 14:37: 36 Yes 2.5mg 2.5 mg, Inhalation , Q6HPRN, Starting Poppy 01/28/21 at 0937, Until Discontinu ed, Shortness of Breath, Wheezing [facility] morpHINE injection 2 mg 01-28 13:17: 25 01-28 21:16 :25 No 2mg 2 mg, Slow IV Push, Q6HPRN, Starting Poppy 01/28/21 at 0817, Until Poppy 01/28/21 at 1616, Routine, Pain (scale 7-10) [facility] morpHINE injection 2 mg 01-28 13:17: 25 01-28 21:16 :25 No 2mg 2 mg, Slow IV Push, Q6HPRN, Starting Poppy 01/28/21 at 0817, Until Poppy 01/28/21 at 1616, Routine, Pain (scale 7-10) [facility] ketorolac (TORADOL) injection 30 mg 01-27 22:08: 51 01-27 22:09 :00 No 30mg 30 mg, Slow IV Push, PRN, 1 dose, Starting Mon01/27/21 at 1708, Until Mon01/27/21 at 1709, Routine, Pain (scale 4-6), PACU
[facility] : TOBY PRUITT [facility] enoxaparin (LOVENOX) injection 40 mg 01-27 22:00: 00 Yes 40mg 40 mg, Subcutaneo us, DAILY, First dose on Mon01/27/21 at 1700, Until Discontinu ed, Routine [facility] enoxaparin (LOVENOX) injection 40 mg 01-27 22:00: 00 Yes 40mg 40 mg, Subcutaneo us, DAILY, First dose on Mon01/27/21 at 1700, Until Discontinu ed, Routine [facility] morpHINE injection 2 mg 01-27 21:45: 35 01-27 22:22 :02 No 2mg 2 mg, Slow IV Push, Q5MIN PRN, 5 doses, Starting Mon01/27/21 at 1645, Until Mon01/27/21 at 1722, Routine, Pain (scale 4-6), PACU [facility] HYDROcodone -acetaminop hen (NORCO) 10-325 mg tablet 1 tablet 01-27 21:34: 03 Yes 1{tbl} 1 tablet, Oral, Q6HPRN, Starting Mon01/27/21 at 1634, Until Discontinu ed, Routine, Pain (scale 4-6) [facility] HYDROcodone -acetaminop hen (NORCO) 10-325 mg tablet 1 tablet 01-27 21:34: 03 Yes 1{tbl} 1 tablet, Oral, Q6HPRN, Starting Mon01/27/21 at 1634, Until Discontinu ed, Routine, Pain (scale 4-6) [facility] HYDROcodone -acetaminop hen (NORCO 5) 5-325 mg tablet 1 tablet 01-27 21:33: 48 Yes 1{tbl} 1 tablet, Oral, Q6HPRN, Starting Mon01/27/21 at 1633, Until Discontinu ed, Routine, Pain (scale 1-3) [facility] HYDROcodone -acetaminop hen (NORCO 5) 5-325 mg tablet 1 tablet 01-27 21:33: 48 Yes 1{tbl} 1 tablet, Oral, Q6HPRN, Starting Mon01/27/21 at 1633, Until Discontinu ed, Routine, Pain (scale 1-3) [facility] PHENYLephri ne 1000 mcg/10 mL in 0.9% NaCl syringe 01-27 21:16: 00 01-27 21:36 :50 No Slow IV Push, ONCE INTRA PROCEDURE, Starting Mon01/27/21 at 1616, Until Mon01/27/21 at 1636, Routine, Intra-op [facility] ondansetron (ZOFRAN (PF)) injection 01-27 21:14: 00 01-27 21:36 :50 No Slow IV Push, ONCE INTRA PROCEDURE, Starting Mon01/27/21 at 1614, Until Mon01/27/21 at 1636, Routine, Intra-op [facility] dexamethaso ne (DECADRON PHOSPHATE) injection 01-27 21:12: 00 01-27 21:36 :50 No IV Push, ONCE INTRA PROCEDURE, Starting Mon01/27/21 at 1612, Until Mon01/27/21 at 1636, Routine, Intra-op [facility] lidocaine 1% (XYLOCAINE) 100 mg/10 mL (1 %) injection 01-27 21:07: 00 01-27 21:36 :50 No Intravenou s, ONCE INTRA PROCEDURE, Starting Mon01/27/21 at 1607, Until Mon01/27/21 at 1636, Routine, Intra-op [facility] propofoL IV infusion 01-27 21:07: 00 01-27 21:36 :50 No Intravenou s, ONCE INTRA PROCEDURE, Starting Mon01/27/21 at 1607, Until Mon01/27/21 at 1636, Routine, Intra-op [facility] FENTanyl PF (SUBLIMAZE (PF)) injection 01-27 21:07: 00 01-27 21:36 :50 No Intravenou s, ONCE INTRA PROCEDURE, Starting Mon01/27/21 at 1607, Until Mon01/27/21 at 1636, Routine, Intra-op [facility] midazolam (VERSED) injection 01-27 20:57: 00 01-27 21:36 :50 No IV Push, ONCE INTRA PROCEDURE, Starting Mon01/27/21 at 1557, Until Mon01/27/21 at 1636, Routine, Intra-op [facility] lactated ringers IV infusion 01-27 20:57: 00 01-27 21:36 :50 No IV Infusion, CONTINUOUS PRN, Starting Mon01/27/21 at 1557, Until Mon01/27/21 at 1636, Routine, Intra-op [facility] vancomycin 1500 mg in NS 500 mL IV Piggyback RTU 1,500 mg 01-27 16:00: 00 Yes 1500mg 1,500 mg, IV Infusion, Q12H ABX, First dose on Mon01/27/21 at 1100, Until Discontinu ed
Reas on for Anti-Infec tive: Documented Infection< br>Documen mariah Infection Site: Skin / Soft Tissue
Duration of Therapy: 10 days [facility] vancomycin 1500 mg in NS 500 mL IV Piggyback RTU 1,500 mg 01-27 16:00: 00 Yes 1500mg 1,500 mg, IV Infusion, Q12H ABX, First dose on Mon01/27/21 at 1100, Until Discontinu ed
Reas on for Anti-Infec tive: Documented Infection< br>Documen mariah Infection Site: Skin / Soft Tissue
Duration of Therapy: 10 days [facility] piperacilli n-tazobacta m (ZOSYN) 3.375 g in NaCl 0.9% (NS) 100 mL MINI-BAG 01-27 13:00: 00 Yes 3.375g 3.375 g, IV Piggyback, Q6H ABX, First dose (after last reorder) on Mon01/27/21 at 0800, Until Discontinu ed, 100 mL
Reas on for Anti-Infec tive: Documented Infection< br>Documen mariah Infection Site: Skin / Soft Tissue
Duration of Therapy: Other (see Comments) [facility] piperacilli n-tazobacta m (ZOSYN) 3.375 g in NaCl 0.9% (NS) 100 mL MINI-BAG 01-27 13:00: 00 Yes 3.375g 3.375 g, IV Piggyback, Q6H ABX, First dose (after last reorder) on Mon01/27/21 at 0800, Until Discontinu ed, 100 mL
Reas on for Anti-Infec tive: Documented Infection< br>Documen mariah Infection Site: Skin / Soft Tissue
Duration of Therapy: Other (see Comments) [facility] NaCl 0.9% (NS) IV infusion 1,000 mL 01-27 11:45: 00 01-28 13:18 :05 No 1000mL at 125 mL/hr, IV Infusion, CONTINUOUS , Starting Mon01/27/21 at 0645, Until Poppy 01/28/21 at 0818, Routine [facility] NaCl 0.9% (NS) IV infusion 2,000 mL 01-27 07:15: 00 01-27 07:36 :00 No 2000mL at 125 mL/hr, IV Infusion, ONCE, 1 dose, Mon01/27/21 at 0215, Routine [facility] ondansetron (ZOFRAN (PF)) injection 4 mg 01-27 06:12: 31 Yes 4mg 4 mg, Slow IV Push, Q6HPRN, Starting Mon01/27/21 at 0112, Until Discontinu ed, Routine, Nausea and Vomiting (N/V) [facility] ondansetron (ZOFRAN (PF)) injection 4 mg 01-27 06:12: 31 Yes 4mg 4 mg, Slow IV Push, Q6HPRN, Starting Mon01/27/21 at 0112, Until Discontinu ed, Routine, Nausea and Vomiting (N/V) [facility] morpHINE injection 2 mg 01-27 06:12: 24 01-27 21:34 :15 No 2mg 2 mg, Slow IV Push, Q4HPRN, Starting Mon01/27/21 at 0112, Until Mon01/27/21 at 1634, Routine, Pain (scale 7-10) [facility] piperacilli n-tazobacta m (ZOSYN) 3.375 g in NaCl 0.9% (NS) 100 mL MINI-BAG 01-27 04:15: 00 01-27 03:40 :00 No 3.375g 3.375 g, IV Piggyback, ONCE, 1 dose, 01/26/21 at 2315, 100 mL
Reas on for Anti-Infec tive: Documented Infection< br>Documen mariah Infection Site: Skin / Soft Tissue
Duration of Therapy: Other (see Comments) [facility] vancomycin (VANCOCIN) 1,000 mg in NaCl 0.9% (NS) 250 mL VIAL-MATE IV piggyback 01-27 04:00: 00 01-27 04:57 :00 No 1000mg 1,000 mg, IV Piggyback, ONCE, 1 dose, 01/26/21 at 2300, 250 mL
Reas on for Anti-Infec tive: Documented Infection< br>Documen mariah Infection Site: Skin / Soft Tissue
Duration of Therapy: Other (see Comments) [facility] iopamidol (ISOVUE 370-500 mL) injection 120 mL 01-27 04:00: 00 01-27 02:50 :00 No [id number] 120mL 120 mL, Intravenou s, ONCE, 1 dose, 01/26/21 at 2300, Routine [facility] NaCl 0.9% (NS) bolus infusion 1,000 mL 01-27 03:45: 00 01-27 03:57 :00 No 1000mL at 999 mL/hr, 1,000 mL, IV Infusion, ONCE, 1 dose, 01/26/21 at 2245, STAT [facility] ondansetron (ZOFRAN (PF)) injection 4 mg 01-27 03:30: 00 01-27 02:19 :00 No 4mg 4 mg, Slow IV Push, ONCE, 1 dose, 01/26/21 at 2230, MICHAELA [facility] morpHINE injection 4 mg 01-27 03:30: 00 01-27 02:18 :00 No 4mg 4 mg, Slow IV Push, ONCE, 1 dose, 01/26/21 at 2230, STAT [facility] medroxyPROG ESTERone (DEPO-PROVE RA) injection 150 mg 10-19 18:00: 00 09-20 17:59 :00 No [id number] 150mg [facility] medroxyPROG ESTERone (DEPO-PROVE RA) injection 150 mg 10-19 18:00: 09-20 17:59 :00 No [id number] 150mg [facility] medroxyPROG ESTERone (DEPO-PROVE RA) injection 150 mg 10-19 18:00: 00 09-20 17:59 :00 No [id number] 150mg 150 mg, Intramuscu lar, [id number], 4 doses, First dose on Mon10/19/18 at 1200, Last dose on Mon06/28/19 at 1200, Routine [facility].5 mg/0.5 mL nebulizer solution 10-25 00:00: 00 Yes 2.5mg Use 0.5 mL as directed every 6 (six) hours as needed for Wheezing. [facility] albuterol 2.5 mg/0.5 mL nebulizer solution 10-25 00:00: 00 Yes 2.5mg Use 0.5 mL as directed every 6 (six) hours as needed for Wheezing. [facility] albuterol 2.5 mg/0.5 mL nebulizer solution 10-25 00:00: 00 Yes 2.5mg Use 0.5 mL as directed every 6 (six) hours as needed for Wheezing. [facility] albuterol 2.5 mg/0.5 mL nebulizer solution 10-25 00:00: 00 Yes 2.5mg Use 0.5 mL as directed every 6 (six) hours as needed for Wheezing. [facility] albuterol 2.5 mg/0.5 mL nebulizer solution 10-25 00:00: 00 Yes 2.5mg Use 0.5 mL as directed every 6 (six) hours as needed for Wheezing. [facility] albuterol 2.5 mg/0.5 mL nebulizer solution 10-25 00:00: 00 Yes 2.5mg Use 0.5 mL as directed every 6 (six) hours as needed for Wheezing. [facility] albuterol 2.5 mg/0.5 mL nebulizer solution 10-25 00:00: 00 Yes 2.5mg Use 0.5 mL as directed every 6 (six) hours as needed for Wheezing. [facility] albuterol 2.5 mg/0.5 mL nebulizer solution 10-25 00:00: 00 Yes 2.5mg Use 0.5 mL as directed every 6 (six) hours as needed for Wheezing. [facility] albuterol 2.5 mg/0.5 mL nebulizer solution 10-25 00:00: 00 Yes 2.5mg Use 0.5 mL as directed every 6 (six) hours as needed for Wheezing. [facility] albuterol 2.5 mg/0.5 mL nebulizer solution 10-25 00:00: 00 Yes 2.5mg Use 0.5 mL as directed every 6 (six) hours as needed for Wheezing. [facility] albuterol 2.5 mg/0.5 mL nebulizer solution 10-25 00:00: 00 Yes 2.5mg Use 0.5 mL as directed every 6 (six) hours as needed for Wheezing. [facility] albuterol 2.5 mg/0.5 mL nebulizer solution 10-25 00:00: 00 Yes 2.5mg Use 0.5 mL as directed every 6 (six) hours as needed for Wheezing. [facility] albuterol 2.5 mg/0.5 mL nebulizer solution 10-25 00:00: 00 Yes 2.5mg Use 0.5 mL as directed every 6 (six) hours as needed for Wheezing. [facility] albuterol 2.5 mg/0.5 mL nebulizer solution 10-25 00:00: 00 Yes 2.5mg Use 0.5 mL as directed every 6 (six) hours as needed for Wheezing. [facility] albuterol 2.5 mg/0.5 mL nebulizer solution 10-25 00:00: 00 Yes 2.5mg Use 0.5 mL as directed every 6 (six) hours as needed for Wheezing. [facility] albuterol 2.5 mg/0.5 mL nebulizer solution 10-25 00:00: 00 Yes 2.5mg Use 0.5 mL as directed every 6 (six) hours as needed for Wheezing. [facility] albuterol 2.5 mg/0.5 mL nebulizer solution 10-25 00:00: 00 Yes 2.5mg Use 0.5 mL as directed every 6 (six) hours as needed for Wheezing. [facility] albuterol 2.5 mg/0.5 mL nebulizer solution 10-25 00:00: 00 Yes 2.5mg Use 0.5 mL as directed every 6 (six) hours as needed for Wheezing. [facility] albuterol 2.5 mg/0.5 mL nebulizer solution 10-25 00:00: 00 Yes 2.5mg Use 0.5 mL as directed every 6 (six) hours as needed for Wheezing. [facility] albuterol 2.5 mg/0.5 mL nebulizer solution 10-25 00:00: 00 Yes 2.5mg Use 0.5 mL as directed every 6 (six) hours as needed for Wheezing. [facility] albuterol 2.5 mg/0.5 mL nebulizer solution 10-25 00:00: 00 Yes 2.5mg Use 0.5 mL as directed every 6 (six) hours as needed for Wheezing. [facility] Vital Signs Vital Name Observation Time Observation Value Comments S ource Systolic blood pressure 2022-09-27 14:52:00 107 mm[Hg] [facility] Diastolic blood pressure 2022-09-27 14:52:00 78 mm[Hg] [facility] Heart rate 2022-09-27 14:52:00 66 /min [facility] Body temperature 2022-09-27 14:52:00 36.78 Brisa [facility] Respiratory rate 2022-09-27 14:52:00 18 /min [facility] Body height 2022-09-27 14:52:00 152.4 cm [facility] Body weight 2022-09-27 14:52:00 82.101 kg [facility] BMI 2022-09-27 14:52:00 35.35 kg/m2 [facility] Systolic blood pressure 2022-09-21 20:36:00 118 mm[Hg] [facility] Diastolic blood pressure 2022-09-21 20:36:00 78 mm[Hg] [facility] Heart rate 2022-09-21 20:36:00 104 /min [facility] Body temperature 2022-09-21 20:36:00 36.61 Brisa [facility] Respiratory rate 2022-09-21 20:36:00 18 /min [facility] Body height 2022-09-21 20:36:00 152.4 cm [facility] Body weight 2022-09-21 20:36:00 82.725 kg [facility] BMI 2022-09-21 20:36:00 35.62 kg/m2 [facility] Systolic blood pressure 2022-09-20 22:20:00 124 mm[Hg] [facility] Diastolic blood pressure 2022-09-20 22:20:00 79 mm[Hg] [facility] Heart rate 2022-09-20 22:20:00 69 /min [facility] Respiratory rate 2022-09-20 22:20:00 18 /min [facility] Oxygen saturation in Arterial blood by Pulse oximetry 2022-09-20 22:20:00 98 /min [facility] Body temperature 2022-09-20 14:24:00 36.72 Brisa [facility] Body height 2022-09-20 14:24:00 152.4 cm [facility] Body weight 2022-09-20 14:24:00 81.647 kg [facility] BMI 2022-09-20 14:24:00 35.15 kg/m2 [facility] Heart rate 2021-11-10 01:00:00 91 /min [facility] Body temperature 2021-11-10 01:00:00 37.94 Brisa [facility] Oxygen saturation in Arterial blood by Pulse oximetry 2021-11-10 01:00:00 99 /min [facility] Systolic blood pressure 2021-11-10 00:31:00 104 mm[Hg] [facility] Diastolic blood pressure 2021-11-10 00:31:00 68 mm[Hg] [facility] Respiratory rate 2021-11-10 00:31:00 18 /min [facility] Body height 2021-11-09 22:23:00 157.5 cm [facility] Body weight 2021-11-09 22:23:00 72.576 kg [facility] BMI 2021-11-09 22:23:00 29.26 kg/m2 [facility] Systolic blood pressure 2021-08-06 10:41:00 116 mm[Hg] [facility] Diastolic blood pressure 2021-08-06 10:41:00 79 mm[Hg] [facility] Heart rate 2021-08-06 10:41:00 88 /min [facility] Respiratory rate 2021-08-06 10:41:00 22 /min [facility] Oxygen saturation in Arterial blood by Pulse oximetry 2021-08-06 10:41:00 97 /min [facility] Body temperature 2021-08-06 06:47:00 37.33 Brisa [facility] Body height 2021-08-06 06:47:00 149.9 cm [facility] Body weight 2021-08-06 06:47:00 83.915 kg [facility] BMI 2021-08-06 06:47:00 37.37 kg/m2 [facility] Systolic blood pressure 2021-02-16 21:26:00 125 mm[Hg] [facility] Diastolic blood pressure 2021-02-16 21:26:00 87 mm[Hg] [facility] Heart rate 2021-02-16 21:26:00 80 /min [facility] 2021-02-16 21:26:00 36.33 Brisa [facility] Respiratory rate 2021-02-16 21:26:00 16 /min [facility] Body weight 2021-02-16 21:26:00 81.194 kg [facility] BMI 2021-02-16 21:26:00 36.09 kg/m2 [facility] Oxygen saturation in Arterial blood by Pulse oximetry 2021-02-16 21:26:00 99 /min [facility] Systolic blood pressure 2021-01-29 16:17:00 112 mm[Hg] [facility] Diastolic blood pressure 2021-01-29 16:17:00 79 mm[Hg] [facility] Body temperature 2021-01-29 16:17:00 36.72 Brisa [facility] Respiratory rate 2021-01-29 16:17:00 18 /min [facility] Oxygen saturation in Arterial blood by Pulse oximetry 2021-01-29 16:17:00 100 /min [facility] Heart rate 2021-01-29 14:00:00 77 /min [facility] Body weight 2021-01-28 08:45:00 84.959 kg [facility] BMI 2021-01-28 08:45:00 37.76 kg/m2 [facility] Body height 2021-01-27 20:48:00 150 cm [facility] Body height 2021-01-27 20:48:00 150 cm [facility] Body weight 2021-01-27 20:48:00 86.2 kg [facility] BMI 2021-01-27 20:48:00 37.76 kg/m2 [facility] Systolic blood pressure 2021-01-27 20:05:00 108 mm[Hg] [facility] Diastolic blood pressure 2021-01-27 20:05:00 67 mm[Hg] [facility] Heart rate 2021-01-27 20:05:00 90 [facility] Body temperature 2021-01-27 20:05:00 36.67 Brisa [facility] Respiratory rate 2021-01-27 20:05:00 20 /min [facility] Oxygen saturation in Arterial blood by Pulse oximetry 2021-01-27 20:05:00 100 /min [facility] Systolic blood pressure 2019-04-22 19:06:00 130 mm[Hg] [facility] Diastolic blood pressure 2019-04-22 19:06:00 82 mm[Hg] [facility] Heart rate 2019-04-22 19:06:00 84 /min [facility] Body temperature 2019-04-22 19:06:00 36 Brisa [facility] Respiratory rate 2019-04-22 19:06:00 16 /min [facility] Body height 2019-04-22 19:06:00 152.4 cm [facility] Body weight 2019-04-22 19:06:00 85.503 kg [facility] BMI 2019-04-22 19:06:00 36.81 kg/m2 [facility] Procedures Procedure Date / Time Performed Performing Clinician Source POCT TEST 2022-09-27 15:38:00 Nayla Ventura [facility] POCT TEST 2022-09-27 00:00:00 Nayla Ventura [facility] GLUCOSE 1 HOUR POST PRANDIAL 2022-09-22 15:21:00 Jacqueline Villalobos [facility] TOTAL BETA HCG ASSAY 2022-09-21 21:30:00 Sedrick Villalobos [facility] CBC WITH DIFF 2022-09-21 21:30:00 Jacqueline Villalobos [facility] HEPATITIS B SURFACE ANTIGEN 2022-09-21 21:30:00 Jacqueline Villalobos [facility] HCV ANTIBODY 2022-09-21 21:30:00 Jacqueline Villalobos [facility] HB ABO GROUPING 2022-09-21 21:30:00 Jacqueline Villalobos [facility] HIV 1/2 AG-AB WITH REFLEX 2022-09-21 21:30:00 Jacqueline Villalobos [facility] PAP SMEAR-LIQUID BASED-CP 2022-09-21 21:30:00 Jacqueline Villalobos [facility] POCT TEST 2022-09-21 20:29:00 Jorge Villalobos [facility] POCT URINALYSIS W/O SPECIFIC GRAVITY 2022-09-21 20:29:00 Jacqueline Villalobos [facility] ADC CLC OR LCC ONLY - WET PREP 2022-09-20 22:24:00 Leeanna Naranjo [facility] FIRST TRIMESTER LESS THAN 14 WEEKS WITH TRANSVAGINAL 2022-09-20 20:12:04 Lee Ann Hussein [facility] URINALYSIS 2022-09-20 15:15:00 Lee Ann Hussein [facility] LIPASE 2022-09-20 15:11:00 [facility] TEST, SERUM 2022-09-20 15:11:00 Itz Hussein [facility] COMP. METABOLIC PANEL ([id number]) 2022-09-20 15:11:00 Lee Ann Hussein [facility] TOTAL BETA HCG ASSAY 2022-09-20 15:11:00 Lexie Hussein [facility] CBC WITH DIFF 2022-09-20 15:11:00 Lee Ann Hussein [facility] PROTHROMBIN TIME / INR 2022-09-20 15:11:00 Tristen Hussein [facility] ACTIVATED PARTIAL THRMPLAS FLORA 2022-09-20 15:11:00 Lee Ann Hussein [facility] CONSENT/REFUSAL FOR DIAGNOSIS AND TREATMENT 2022-09-20 14:05:15 Doctor Unassigned, [place] [facility] XR CHEST 1 VW 2021-11-09 23:31:00 Misty Hooker [facility] CBC WITH DIFF 2021-11-09 23:31:00 Misty Hooker [facility] POCT TEST 2021-11-09 23:21:00 Talya Hooker [facility] URINALYSIS 2021-11-09 23:19:00 Walter [facility] RAPID INFLUENZA A/B 2021-11-09 23:19:00 Talya Hooker [facility] COVID-19 (ID NOW RAPID TESTING) 2021-11-09 23:19:00 Misty Hooker [facility] LIPASE 2021-11-09 23:13[facility]IC [facility] ([id number]) 2021-11-09 23:13:00 Misty Hooker [facility] NOTICE OF PRIVACY PRACTICES 2021-11-09 22:13:35 Doctor Unassigned, [place] [facility] CONSENT/REFUSAL FOR DIAGNOSIS AND TREATMENT 2021-11-09 22:13:21 Doctor Unassigned, [place] [facility] XR CHEST 1 VW 2021-08-06 09:20:00 [facility] RAPID INFLUENZA A/B 2021-08-06 08:25:00 Otilia Britton [facility] COVID-19 (ID NOW RAPID TESTING) 2021-08-06 08:25:00 Otilia Britton [facility] BASIC METABOLIC PANEL (NA, K, CL, CO2, GLUCOSE, BUN, CREATININE, CA) 2021-01-29 10:37:00 Chinedu Fragoso [facility] CBC WITH DIFF 2021-01-29 10:37:00 Chinedu Fragoso [facility] VANCOMYCIN TROUGH 2021-01-29 03:57:00 Leeroy Mae [facility] BASIC METABOLIC PANEL (NA, K, CL, CO2, GLUCOSE, BUN, CREATININE, CA) 2021-01-28 10:27:00 Madina [facility] CBC WITH DIFF 2021-01-28 10:27:00 Madina [facility] BASIC METABOLIC PANEL (NA, K, CL, CO2, GLUCOSE, BUN, CREATININE, CA) 2021-01-28 10:27:00 Madina [facility] CBC WITH DIFF 2021-01-28 10:27:00 Madina [facility] INTUBATION 2021-01-27 21:23:47 Gian Negrete [facility] ASPIRATE OR ABSCESS CULTURE(AEROBIC/ANAEROBIC) 2021-01-27 21:22:56 Penny Holcomb [facility] ASPIRATE OR ABSCESS CULTURE(AEROBIC/ANAEROBIC) 2021-01-27 21:22:56 Penny Holcomb [facility] INCISION AND DRAINAGE BUTTOCK 2021-01-27 20:50:00 Penny Holcomb [facility] INCISION AND DRAINAGE BUTTOCK 2021-01-27 20:50:00 Penny Holcomb [facility] XR CHEST 1 2021-01-27 05:56:15 [facility] XR CHEST 1 2021-01-27 05:56:15 [facility] LACTIC ACID WHOLE BLOOD 2021-01-27 05:47:00 Jon Britton [facility] LACTIC ACID WHOLE BLOOD 2021-01-27 05:47:00 Jon Britton [facility] COVID-19 (ID NOW RAPID TESTING) 2021-01-27 04:33:00 Otilia Britton [facility] COVID-19 (ID NOW RAPID TESTING) 2021-01-27 04:33:00 Otilia Britton [facility] CT PELVIS W CONTRAST 2021-01-27 02:56:37 Otilia Britton [facility] CT PELVIS W CONTRAST 2021-01-27 02:56:37 Otilia [facility]on [facility] [facility] POCT TEST 2021-01-27 02:30:00 Otilia Britton [facility] POCT TEST 2021-01-27 02:30:00 Otilia Britton [facility] BLOOD CULTURE SCREEN 2021-01-27 02:20:00 Otilia Britton [facility] BLOOD CULTURE SCREEN 2021-01-27 02:20:00 Otilia Britton [facility] HEPATIC FUNCTION PANEL (13372) (ALB,T.PRO,BILI T,BU/BC,ALT,AST,ALK PHOS) 2021-01-27 02:09:00 Madina [facility] BASIC METABOLIC PANEL (NA, K, CL, CO2, GLUCOSE, BUN, CREATININE, CA) 2021-01-27 02:09:00 Otilia Britton [facility] CBC WITH DIFF 2021-01-27 02:09:00 Otilia Britton [facility] LACTIC ACID WHOLE BLOOD 2021-01-27 02:09:00 Jon Britton [facility] HEPATIC FUNCTION PANEL (52590) (ALB,T.PRO,BILI T,BU/BC,ALT,AST,ALK PHOS) 2021-01-27 02:09:00 Madina [facility] BASIC METABOLIC PANEL (NA, K, CL, CO2, GLUCOSE, BUN, CREATININE, CA) 2021-01-27 02:09:00 Otilia Britton [facility] CBC WITH DIFF 2021-01-27 02:09:00 Otilia Britton [facility] LACTIC ACID WHOLE BLOOD 2021-01-27 02:09:00 Jon Britton [facility] BLOOD CULTURE SCREEN 2021-01-27 02:08:00 Otilia Britton [facility] BLOOD CULTURE SCREEN 2021-01-27 02:08:00 Otilia Britton [facility] CONSENT/REFUSAL FOR DIAGNOSIS AND TREATMENT 2021-01-27 01:14:15 Doctor Unassigned, [place] [facility] CONSENT/REFUSAL FOR DIAGNOSIS AND TREATMENT 2021-01-27 01:14:15 Doctor Unassigned, [place] [facility] NOTICE OF PRIVACY PRACTICES 2021-01-27 01:13:39 Doctor Unassigned, [place] [facility] NOTICE OF PRIVACY PRACTICES 2021-01-27 01:13:39 Doctor Unassigned, [place] [facility] POCT TEST 2019-04-22 23:07:00 Jorge Villalobos [facility] NO SHOW OR MISSED APPOINTMENT POLICY ACKNOWLEDGEMENT 2019-04-22 18:55:00 Doctor Unassigned, [place] [facility] Encounters Start Date/Time End Date/Time Encounter Type Admission Type Attending [facility] Care Facility Care Department Encounter ID Source 2021-06-27 22:32:36 Emergency [facility] [id number] [facility] 2023-10-19 08:37:30 2023-10-19 08:37:30 Outpatient SFA S[facility] [id number] Peter F Rolly 2023-10-07 09:40:05 2023-10-07 09:40:05 Outpatient SFA SFA [id number] Peter F Rolly 2023-10-05 11:37:17 2023-10-05 11:37:17 Outpatient SFA SFA [id number] Peter Nick Rolly 2023-09-27 14:30:58 2023-09-27 14:30:58 Outpatient SFA SFA [id number] Peter Lofton 2023-09-20 09:14:08 2023-09-20 09:14:08 Outpatient SFA [facility] [id number] Peter Lofton 2023-09-18 14:23:01 2023-09-18 14:23:01 Outpatient SFA [facility] [id number] Peter Lofton 2022-10-20 09:00:00 2022-10-20 09:00:00 Outpatient JACQUELINE SCHULTZ [facility] [id number] [facility] 2022-10-11 10:45:00 2022-10-11 15:58:23 Outpatient R HANH MCDONALD [facility] [id number] [facility] 2022-10-11 10:45:00 2022-10-11 15:58:23 Telemedici ne Visit Trimester, [facility] Res-1st Hanh Mcdonald [facility] 840.114 350.1.13.10 4.2.7.2.686 [id number] [facility] 2022-09-27 08:45:00 2022-09-27 09:49:09 Outpatient SARAH OSORIO [facility] [id number] [facility] 2022-09-27 08:45:00 2022-09-27 09:49:09 Routine Visit Trimester, [facility] Sarah Robb [facility] 840.114 350.1.13.10 4.2.7.2.686 [id number] [facility] 2022-09-26 08:15:00 2022-09-26 08:40:50 Outpatient JACQUELINE SCHULTZ [facility] [id number] [facility] 2022-09-26 08:15:00 2022-09-26 08:40:50 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[facility] & [facility] ..840.114 350.1.13.10 4.2.7.2.686 [id number] [facility] 2022-09-23 00:00:00 2022-09-23 00:00:00 Telephone Juliochristiano Jacqueline Cardoso [facility] 1.840.114 350.1.13.10 4.2.7.2.686 [id number] [facility] 2022-09-22 08:30:00 2022-09-22 08:30:00 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 1..114 350.1.13.10 4.2.7.2.686 [id number] [facility] 2022-09-22 08:30:00 2022-09-22 08:29:14 Outpatient R JACQUELINE VILLALOBOS [facility] [id number] [facility] 2022-09-21 14:15:00 2022-09-21 15:35:56 Outpatient R JACQUELINE VILLALOBOS [facility] [id number] [facility] 2022-09-21 14:15:00 2022-09-21 15:35:56 Initial Visit Jacqueline Villalobos [facility] 1..114 350.1.13.10 4.2.7.2.686 [id number] [facility] 2022-09-20 08:20:00 2022-09-20 16:48:00 Emergency X LEE ANN HUSSEIN [facility] ERT [id number] [facility] 2022-09-20 08:20:00 2022-09-20 16:48:00 Emergency Lee Ann Hussein [facility] 1.840.114 350.1.13.10 4.2.7.2.686 [id number] [facility] 2021-11-09 17:29:00 2021-11-09 20:21:00 Emergency X MISTY HOOKER [facility] ERT [id number] [facility] 2021-11-09 17:29:00 2021-11-09 20:21:00 Emergency Misty Hooker [facility] 1.2840.114 350.1.13.10 4.2.7.2.686 [id number] [facility] 2021-10-23 09:30:00 2021-10-23 09:30:00 Outpatient R WYATT HUGGINS [facility] [id number] [facility] 2021-08-06 00:30:00 2021-08-06 04:47:00 Emergency X OTILIA BRITTON [facility] ERT [id number] [facility] 2021-08-06 00:30:00 2021-08-06 04:47:00 Emergency Otilia Britton S [facility] 1.284.114 350.1.13.10 4.2.7.2.686 [id number] [facility] 2021-02-16 16:00:00 2021-02-16 17:01:15 Outpatient R PENNY HOLCOMB [facility] [id number] [facility] 2021-02-16 15:56:33 2021-02-16 17:01:15 Office Visit Penny Holcomb [facility] 1.284.114 350.1.13.10 4.2.7.2.686 [id number] [facility] 2021-02-03 00:00:00 2021-02-03 00:00:00 Patient Outreach Elena Gaines 1.840.114 350.1.13.10 4.2.7.2.686 [id number] [facility] 2021-02-01 00:00:00 2021-02-01 00:00:00 Transition of Care Yaima Julio 1.2.840.114 350.1.13.10 4.2.7.2.686 [id number] [facility] 2021-01-26 20:38:00 2021-01-29 12:24:00 Hospital Encounter Otilia Britton EdjuanjoseElizabethjose [facility] 1.2.840.114 350.1.13.10 4.2.7.2.686 [id number] [facility] 2021-01-27 15:57:00 2021-01-27 16:36:00 Anesthesia Event Toby Pruitt [facility] Surgical [place] 1.2.840.114 350.1.13.10 4.2.7.2.686 [id number] [facility] 2021-01-27 15:30:00 2021-01-27 16:29:00 Surgery Penny Holcomb [facility] 1.2.840.114 350.1.13.10 4.2.7.2.686 [id number] [facility] 2019-04-22 13:54:22 2019-04-22 14:17:45 Nurse Visit Visit, [facility] Nurse Jacqueline Villalobos [facility] 1.2.840.114 350.1.13.10 4.2.7.2.686 [id number] [facility] 2019-04-22 00:00:00 2019-04-22 00:00:00 Orders Only Doctor Unassigned, [place] [facility] 1.2.840.114 350.1.13.10 4.2.7.2.686 [id number] [facility] Results Test Description Test Time Test Comments Results Result Co mments Source POCT [id number] 15:49:00* Test Item Value Reference Range Interpretation Comme nts POCT PREG (test code = 1605) Positive On board controls acceptable with C Line (test code = 3574) Yes POCT PREG LOT # (test code = 3575) POCT PREG TEST DATE ( test code = 3576) [facility] [id number] 15:40:00* Test Item Value Reference Range Interpretation Comme nts POCT PREG (test code = 1605) Positive On board controls acceptable with C Line (test code = 3574) Yes POCT PREG LOT # (test code = 3575) POCT PREG TEST DATE ( test code = 3576) Lab Interpretation (test cod e = 97343-8) [facility]normal [facility]2 AG-AB WITH [id number] 11:31:52* Test Item Value Reference Range Interpretation Comme nts HIV Semi-quantitative (test code = 52946-6) Negative Negative ASHLEE (test code = ASHLEE) Non-reactive for HIV-1 antigen and HIV-1/HIV-2 antibodies. ?No laboratory evidence of HIV infection. ?Repeat in 2-4 weeks if acute HIV infection is suspected. [facility] WORKUP, BLOOD [id number] 10:13:07 * Test Item Value Reference Range Interpretation Comme nts ABO & RH (test code = 20) O POSITIVE Performed at [facility] Laboratory Services - [facility] Blood [address] [address]Pzdw Free: [phone] No. [id number] IAT (test code = 1185) Negative Performed at [facility] Laboratory Services [facility] Blood [address] [address]Oanv Free: [phone] No. [id number] [facility]CV [id number] 08:18:32* Test Item Value Reference Range Interpretation Comme nts HCV Ab (test code = 99933-3) Negative HCV Semi-Quantitative (test code = 51355-6) [facility]AT[facility] B SURFACE [id number] 08:01:30 * Test Item Value Reference Range Interpretation Comme nts HBsAg Semi-Quantitative (raghavendra t code = 5195-3) Negative Negative [facility] BETA HCG [id number] 07:56:47* Test Item Value Reference Range Interpretation Comme nts BETA HCG (test code = 3803989076) See_Comment [Automated Overlay Studioa ge] The system which generated this result transmitted reference range: Non- female and male patients: <5 mIU/mL. The reference range was not used to interpret this result as normal/abnormal. ASHLEE (test code = ASHLEE) Gestational Age ?Range (mIU/mL) 1-10 ?Weeks ?[id number] Weeks ?82308-05387627-49 Weeks ?4518-52641697-79 Weeks ?6301-608696 Biotin has been reported to cause a negative bias, interpret results relative to patient's use of biotin. [facility] WITH [id number] 06:34:02* Test Item Value Reference Range Interpretation Comme nts WBC (test code = 6690-2) See_Comment [Automated Overlay Studioa [employer]] The system which generated this result transmitted reference range: 4.30 - 11.10 10*3/?L. The reference range was not used to interpret this result as normal/abnormal. RBC (test code = 789-8) See_Comment [Automated Overlay [employer]] The system which generated this result transmitted reference range: 3.93 - 5.25 10*6/?L. The reference range was not used to interpret this result as normal/abnormal. HGB (test code = 718-7) 9.9 g/dL 11.6-15.0 L HCT (test code = 4544-3) 32.7 % 35.7-45.2 L MCV (test code = 787-2) 77.5 fL 80.6-95.5 L MCH (test code = 785-6) 23.5 pg 25.9-32.8 L MCHC (test code = 786-4) 30.3 g/dL 31.6-35.1 L RDW-SD (test code = 40026-3) 48.1 fL 39.0-49.9 RDW-CV (test code = 788-0) 17.2 % 12.0-15.5 H PLT (test code = 777-3) See_Comment [Automated messa ge] The system which generated this result transmitted reference range: 166 - 358 10*3/?L. The reference range was not used to interpret this result as normal/abnormal. MPV (test code = 28077-9) 11.3 fL 9.5-12.9 NRBC/100 WBC (test code = 4565927709) See_Comment [Automated [employer] ssage] The system which generated this result transmitted reference range: 0.0 - 10.0 /100 WBCs. The reference range was not used to interpret this result as normal/abnormal. NRBC x10^3 (test code = 0351566212) See_Comment [Automated Overlay Studioa ge] The system which generated this result transmitted reference range: 10*3/?L. The reference range was not used to interpret this result as normal/abnormal. GRAN MAT (NEUT) % (test code = 770-8) 70.4 % IMM GRAN % (test code = 5364957468) 0.60 % LYMPH % (test code = 736-9) 21.6 % MONO % (test code = 5905-5) 5.7 % EOS % (test code = 713-8) 1.1 % BASO % (test code = 706-2) 0.6 % GRAN MAT x10^3(ANC) (test code = 3332700031) 7.10 10*3/uL 1.88-7.09 H IMM GRAN x10^3 (test code = 8974520991) 0.06 10*3/uL 0.00-0.06 LYMPH x10^3 (test code = 731-0) 2.18 10*3/uL 1.32-3.29 MONO x10^3 (test code = 742-7) 0.57 10*3/uL 0.33-0.92 EOS x10^3 (test code = 711-2) 0.11 10*3/uL 0.03-0.39 BASO x10^3 (test code = 704-7) 0.06 10*3/uL 0.01-0.07 Lab Interpretation (test code = 14580-5) Abnormal [facility] URINALYSIS W/O SPECIFIC [id number] 20:30:00* Test Item Value Reference Range Interpretation Comme nts POCT PH U (test code = 3254) 5 mg/dl 5-8 POCT U LEUK EST (test code = 3263) 1+ Negative - Negative POCT U NIT (test code = 3262) Pos Negative - Negati ve POCT U PROT (test code = 3259) Trace Negative - Negat hermila POCT U GLU (test code = 3256) Neg Negative - Negati ve POCT U KETONE (test code = 3258) Small Negative - Neg ative POCT U BLD (test code = 3257) Large Negative - Negati ve [facility] URINALYSIS W/O SPECIFIC [id number] 20:30:00* Test Item Value Reference Range Interpretation Comme nts POCT PH U (test code = 3254) 5 mg/dl 5-8 POCT U LEUK EST (test code = 3263) 1+ Negative - Negative POCT U NIT (test code = 3262) Pos Negative - Negati ve POCT U PROT (test code = 3259) Trace Negative - Negat hermila POCT U GLU (test code = 3256) Neg Negative - Negati ve POCT U KETONE (test code = 3258) Small Negative - Neg ative POCT U BLD (test code = 3257) Large Negative - Negati ve [facility] [id number] 20:29:00* Test Item Value Reference Range Interpretation Comme nts POCT PREG (test code = 1605) Positive On board controls acceptable with C Line (test code = 3574) Yes POCT PREG LOT # (test code = 3575) POCT PREG TEST DATE ( test code = 3576) [facility] [id number] 20:29:00* Test Item Value Reference Range Interpretation Comme nts POCT PREG (test code = 1605) Positive On board controls acceptable with C Line (test code = 3574) Yes POCT PREG LOT # (test code = 3575) POCT PREG TEST DATE ( test code = 3576) [facility] HospitalTOTAL BHCG (QUANTITATIVE)2022-09-20 17:15:40* Test Item Value Reference Range Interpretation Comme nts BETA HCG (test code = 2481032188) See_Comment [Automated messa ge] The system which generated this result transmitted reference range: Non- female and male patients: <5 mIU/mL. The reference range was not used to interpret this result as normal/abnormal. ASHLEE (test code = ASHLEE) Gestational Age ?Range (mIU/mL) 1-10 ?Weeks ?48-66259765-24 Weeks ?55085-95777179-98 Weeks ?7809-64989354-53 Weeks ?9607-090596 Biotin has been reported to cause a negative bias, interpret results relative to patient's use of biotin. [facility]PREGNANCY TEST, [id number] 16:16:57* Test Item Value Reference Range Interpretation Comme nts PREG SERUM (test code = 0247404608) Positive ASHLEE (test code = ASHLEE) Positive greater t lewis or equal to 10 IU/L hCG. [facility] HospitalACTIVATED PARTIAL THRMPLAS [id number] 16:14:06* Test Item Value Reference Range Interpretation Comme nts APTT Patient (test code = 3173-2) See_Comment [Automated message] The system which generated this result transmitted reference range: 23 - 38 Seconds. The reference range was not used to interpret this result as normal/abnormal. ASHLEE (test code = ASHLEE) The [facility] patient population mean normal value for aPTT is 30 seconds. Lab Interpretation (test code = 07234-8) Normal [facility] HospitalPROTHROMBIN TIME / [id number] 16:12:09* Test Item Value Reference Range Interpretation Comme [facility] PROTIME PATIENT (test code = 5964-2) See_Comment [Automated messa ge] The system which generated this result transmitted reference range: 12.0 - 14.7 Seconds. The reference range was not used to interpret this result as normal/abnormal. INR (test code = 6301-6) Normal INR <1.1; Warfarin Therapeutic range 2.0 to 3.0 or 2.5 to 3.5, depending upon the indications. Lab Interpretation (test code = 10859-6) Normal [facility]. METABOLIC PANEL (54965)2022-09-20 15:58:03* Test Item Value Reference Range Interpretation Comme nts NA (test code = 8463546150) 136 mmol/L 135-145 K (test code = 7403940188) 4.1 mmol/L 3.5-5.0 CL (test code = 4759562805) 102 mmol/L 98-108 CO2 TOTAL (test code = 2157396716) 25 mmol/L 23-31 AGAP (test code = 1214413225) 2-16 BUN (test code = 6665676207) 9 mg/dL 7-23 GLUCOSE (test code = 7172523239) 94 mg/dL 70-110 CREATININE (test code = 2172889111) 0.48 mg/dL 0.50-1.04 L TOTAL BILI (test code = 2748620044) 0.4 mg/dL 0.1-1.1 CALCIUM (test code = 3245136043) 8.8 mg/dL 8.6-10.6 T PROTEIN (test code = 6608151833) 7.4 g/dL 6.3-8.2 ALBUMIN (test code = 0519242992) 4.5 g/dL 3.5-5.0 ALK PHOS (test code = 4356893474) 77 U/L 34-122 ALTv (test code = 1742-6) 15 U/L 5-35 AST(SGOT) (test code = 9330354511) 19 U/L 13-40 eGFR (test code = 4223963570) mL/min/1.73m2 ASHLEE (test code = ASHLEE) Association of [...] or abnormalities in imaging tests). Lab Interpretation (test code = 59741-0) Abnormal [facility] HospitalLIPASE2023-01-[facility] 15:58:03* Test Item Value Reference Range Interpretation Comme nts LIPASE (test code = 4592060487) 74 U/L 0-220 Lab Interpretation (test cod e = 83123-2) Normal [facility] WITH [id number] 15:56:47* Test Item Value Reference Range Interpretation Comme nts WBC (test code = 6690-2) See_Comment [Automated [employer]aptol] The system which generated this result transmitted reference range: 4.30 - 11.10 10*3/?L. The reference range was not used to interpret this result as normal/abnormal. RBC (test code = 789-8) See_Comment [Automated [employer]aptol] The system which generated this result transmitted reference range: 3.93 - 5.25 10*6/?L. The reference range was not used to interpret this result as normal/abnormal. HGB (test code = 718-7) 10.4 g/dL 11.6-15.0 L HCT (test code = 4544-3) 34.3 % 35.7-45.2 L MCV (test code = 787-2) 76.9 fL 80.6-95.5 L MCH (test code = 785-6) 23.3 pg 25.9-32.8 L MCHC (test code = 786-4) 30.3 g/dL 31.6-35.1 L RDW-SD (test code = 05649-5) 47.3 fL 39.0-49.9 RDW-CV (test code = 788-0) 17.0 % 12.0-15.5 H PLT (test code = 777-3) See_Comment [Automated Overlay Studio[employer] ge] The system which generated this result transmitted reference range: 166 - 358 10*3/?L. The reference range was not used to interpret this result as normal/abnormal. MPV (test code = 11256-0) 10.5 fL 9.5-12.9 NRBC/100 WBC (test code = 9137063578) See_Comment [Automated [employer] ssage] The system which generated this result transmitted reference range: 0.0 - 10.0 /100 WBCs. The reference range was not used to interpret this result as normal/abnormal. NRBC x10^3 (test code = 8962733315) See_Comment [Automated [employer] ge] The system which generated this result transmitted reference range: 10*3/?L. The reference range was not used to interpret this result as normal/abnormal. GRAN MAT (NEUT) % (test code = 770-8) 58.6 % IMM GRAN % (test code = 2305280361) 0.80 % LYMPH % (test code = 736-9) 30.9 % MONO % (test code = 5905-5) 6.6 % EOS % (test code = 713-8) 2.4 % BASO % (test code = 706-2) 0.7 % GRAN MAT x10^3(ANC) (test code = 4922047129) 5.29 10*3/uL 1.88-7.09 IMM GRAN x10^3 (test code = 0897840734) 0.07 10*3/uL 0.00-0.06 H LYMPH x10^3 (test code = 731-0) 2.79 10*3/uL 1.32-3.29 MONO x10^3 (test code = 742-7) 0.60 10*3/uL 0.33-0.92 EOS x10^3 (test code = 711-2) 0.22 10*3/uL 0.03-0.39 BASO x10^3 (test code = 704-7) 0.06 10*3/uL 0.01-0.07 Lab Interpretation (test code = 43639-4) Abnormal [facility] WITH [id number] 23:41:07* Test Item Value Reference Range Interpretation Comme nts WBC (test code = 6690-2) See_Comment [Automated messa ge] The system which generated this result transmitted reference range: 4.30 - 11.10 10*3/?L. The reference range was not used to interpret this result as normal/abnormal. RBC (test code = 789-8) See_Comment [Automated [employer] ge] The system which generated this result transmitted reference range: 3.93 - 5.25 10*6/?L. The reference range was not used to interpret this result as normal/abnormal. HGB (test code = 718-7) 9.1 g/dL 11.6-15.0 L HCT (test code = 4544-3) 30.0 % 35.7-45.2 L MCV (test code = 787-2) 74.8 fL 80.6-95.5 L MCH (test code = 785-6) 22.7 pg 25.9-32.8 L MCHC (test code = 786-4) 30.3 g/dL 31.6-35.1 L RDW-SD (test code = 01483-9) 40.8 fL 39.0-49.9 RDW-CV (test code = 788-0) 15.0 % 12.0-15.5 PLT (test code = 777-3) See_Comment H [Automated messa ge] The system which generated this result transmitted reference range: 166 - 358 10*3/?L. The reference range was not used to interpret this result as normal/abnormal. MPV (test code = 90052-8) 10.5 fL 9.5-12.9 NRBC/100 WBC (test code = 2176580155) See_Comment [Automated [employer]] The system which generated this result transmitted reference range: 0.0 - 10.0 /100 WBCs. The reference range was not used to interpret this result as normal/abnormal. NRBC x10^3 (test code = 6403564478) <0.01 See_Comment [Automated messa ge] The system which generated this result transmitted reference range: 10*3/?L. The reference range was not used to interpret this result as normal/abnormal. GRAN MAT (NEUT) % (test code = 770-8) 83.2 % IMM GRAN % (test code = 5416510965) 0.60 % LYMPH % (test code = 736-9) 8.5 % MONO % (test code = 5905-5) 6.6 % EOS % (test code = 713-8) 0.8 % BASO % (test code = 706-2) 0.3 % GRAN MAT x10^3(ANC) (test code = 5380220115) 7.73 10*3/uL 1.88-7.09 H IMM GRAN x10^3 (test code = 9393437444) 0.06 10*3/uL 0.00-0.06 LYMPH x10^3 (test code = 731-0) 0.79 10*3/uL 1.32-3.29 L MONO x10^3 (test code = 742-7) 0.61 10*3/uL 0.33-0.92 EOS x10^3 (test code = 711-2) 0.07 10*3/uL 0.03-0.39 BASO x10^3 (test code = 704-7) 0.03 10*3/uL 0.01-0.07 Lab Interpretation (test code = 52271-9) Abnormal [facility] METABOLIC PANEL (20094)2021-11-09 23:32:45* Test Item Value Reference Range Interpretation Comme nts NA (test code = 6793241614) 135 mmol/L 135-145 K (test code = 4321124842) 4.3 mmol/L 3.5-5.0 CL (test code = 9608972103) 100 mmol/L 98-108 CO2 TOTAL (test code = 6978318429) 26 mmol/L 23-31 AGAP (test code = 9746746228) 2-16 BUN (test code = 1645791235) 8 mg/dL 7-23 GLUCOSE (test code = 1605902899) 98 mg/dL 70-110 CREATININE (test code = 7581245736) 0.56 mg/dL 0.50-1.04 TOTAL BILI (test code = 1523729201) 0.5 mg/dL 0.1-1.1 CALCIUM (test code = 7819769614) 8.7 mg/dL 8.6-10.6 T PROTEIN (test code = 0853872275) 7.7 g/dL 6.3-8.2 ALBUMIN (test code = 2146610894) 4.7 g/dL 3.5-5.0 ALK PHOS (test code = 4983557186) 82 U/L 34-122 ALTv (test code = 1742-6) 14 U/L 5-35 AST(SGOT) (test code = 4743047889) 34 U/L 13-40 eGFR (test code = 2127143168) mL/min/1.73m2 ASHLEE (test code = ASHLEE) Association of [...] or urine or abnormalities in imaging tests). [facility] Test Item Value Reference Range Interpretation Comme nts LIPASE (test code = [id number]) 70 U/L 0-220 Lab Interpretation (test cod e = 72080-0) [id number] 23:21:00* Test Item Value Reference Range Interpretation Comme nts POCT PREG (test code = 1605) NEGATIVE On board controls acceptable with C Line (test code = 3574) PRESENT POCT PREG LOT # (test code = 3575) [id number] POCT PREG TEST DATE ( test code = 3576) Lab Interpretation (test cod e = 96814-6) [facility] (NA, K, CL, CO2, GLUCOSE, BUN, CREATININE, CA)2021-01-29 11:56:16* Test Item Value Reference Range Interpretation Comme nts NA (test code = 4217496673) 140 mmol/L 135-145 K (test code = 0758052565) 3.4 mmol/L 3.5-5.0 L CL (test code = 0285133466) 106 mmol/L 98-108 CO2 TOTAL (test code = 7487885374) 27 mmol/L 23-31 AGAP (test code = 1410421609) 2-16 BUN (test code = 1987736426) 12 mg/dL 7-23 GLUCOSE (test code = 8857501847) 90 mg/dL 70-110 CREATININE (test code = 2779065954) 0.88 mg/dL 0.50-1.04 CALCIUM (test code = 1366563236) 8.6 mg/dL 8.6-10.6 eGFR (test code = 3476885986) mL/min/1.73m2 ASHLEE (test code = ASHLEE) Association of [...] or abnormalities in imaging tests). Lab Interpretation (test code = 02153-0) Abnormal [facility] WITH [id number] 11:26:15* Test Item Value Reference Range Interpretation Comme nts WBC (test code = 6690-2) See_Comment [Deligic] The system which generated this result transmitted reference range: 4.30 - 11.10 10*3/?L. The reference range was not used to interpret this result as normal/abnormal. RBC (test code = 789-8) See_Comment L [Deligic] The system which generated this result transmitted reference range: 3.93 - 5.25 10*6/?L. The reference range was not used to interpret this result as normal/abnormal. HGB (test code = 718-7) 8.8 g/dL 11.6-15.0 L HCT (test code = 4544-3) 27.9 % 35.7-45.2 L MCV (test code = 787-2) 83.0 fL 80.6-95.5 MCH (test code = 785-6) 26.2 pg 25.9-32.8 MCHC (test code = 786-4) 31.5 g/dL 31.6-35.1 L RDW-SD (test code = 60435-6) 42.7 fL 39.0-49.9 RDW-CV (test code = 788-0) 14.1 % 12.0-15.5 PLT (test code = 777-3) See_Comment [Automated messa ge] The system which generated this result transmitted reference range: 166 - 358 10*3/?L. The reference range was not used to interpret this result as normal/abnormal. MPV (test code = 23481-7) 10.5 fL 9.5-12.9 NRBC/100 WBC (test code = 6892184677) See_Comment [Automated me ssage] The system which generated this result transmitted reference range: 0.0 - 10.0 /100 WBCs. The reference range was not used to interpret this result as normal/abnormal. NRBC x10^3 (test code = 3253788312) <0.01 See_Comment [Automated messa ge] The system which generated this result transmitted reference range: 10*3/?L. The reference range was not used to interpret this result as normal/abnormal. GRAN MAT (NEUT) % (test code = 770-8) 68.3 % IMM GRAN % (test code = 0912022818) 0.70 % LYMPH % (test code = 736-9) 19.6 % MONO % (test code = 5905-5) 7.1 % EOS % (test code = 713-8) 3.8 % BASO % (test code = 706-2) 0.5 % GRAN MAT x10^3(ANC) (test code = 5704863032) 6.23 10*3/uL 1.88-7.09 IMM GRAN x10^3 (test code = 9231285430) 0.06 10*3/uL 0.00-0.06 LYMPH x10^3 (test code = 731-0) 1.79 10*3/uL 1.32-3.29 MONO x10^3 (test code = 742-7) 0.65 10*3/uL 0.33-0.92 EOS x10^3 (test code = 711-2) 0.35 10*3/uL 0.03-0.39 BASO x10^3 (test code = 704-7) 0.05 10*3/uL 0.01-0.07 Lab Interpretation (test code = 65359-0) [facility]normal [facility] Level - Draw no more than 60 minutes before the 1100 dose.2021-01-29 05:02:45* Test Item Value Reference Range Interpretation Comme [facility] VANCO TROUGH (test code = 7457907792) 7.6 ug/mL 10.0-20.0 L ASHLEE (test code = ASHLEE) Toxic Range: ?>20 ug/mL 15-20 ug/mL is recommended for severe infection or when Vancomycin AURA is greater than or equal to 2. Lab Interpretation (test code = 49117-7) [facility] (NA, K, CL, CO2, GLUCOSE, BUN, CREATININE, CA)2021-01-28 11:50:40* Test Item Value Reference Range Interpretation Comme [facility] NA (test code = 1859070884) 138 mmol/L 135-145 K (test code = 3763561158) 4.2 mmol/L 3.5-5.0 CL (test code = 9875228012) 104 mmol/L 98-108 CO2 TOTAL (test code = 8879815276) 25 mmol/L 23-31 AGAP (test code = 6453716772) 2-16 BUN (test code = 7339840355) 7 mg/dL 7-23 GLUCOSE (test code = 0765810357) 147 mg/dL 70-110 H CREATININE (test code = 3027001008) 0.44 mg/dL 0.50-1.04 L CALCIUM (test code = 3334524315) 9.0 mg/dL 8.6-10.6 eGFR (test code = 8664376467) mL/min/1.73m2 ASHLEE (test code = ASHLEE) Association of [...] or abnormalities in imaging tests). Lab Interpretation (test code = 45904-2) Abnormal [facility] Metabolic Panel (NA, K, CL, CO2, GLUCOSE, BUN, CREATININE, CA)2021-01-28 11:50:40* Test Item Value Reference Range Interpretation Comme nts NA (test code = 9326663511) 138 mmol/L 135-145 K (test code = 9633363548) 4.2 mmol/L 3.5-5.0 CL (test code = 4968173298) 104 mmol/L 98-108 CO2 TOTAL (test code = 8582396969) 25 mmol/L 23-31 AGAP (test code = 4419962588) 2-16 BUN (test code = 2609682211) 7 mg/dL 7-23 GLUCOSE (test code = 0770898616) 147 mg/dL 70-110 H CREATININE (test code = 9193347831) 0.44 mg/dL 0.50-1.04 L CALCIUM (test code = 4122722835) 9.0 mg/dL 8.6-10.6 eGFR (test code = 6617928170) mL/min/1.73m2 ASHLEE (test code = ASHLEE) Association of [...] or abnormalities in imaging tests). Lab Interpretation (test code = 55680-5) [facility]normal [facility] with [id number] 11:08:37* Test Item Value Reference Range Interpretation Comme nts WBC (test code = 6690-2) See_Comment H [Automated naaptol] The system which generated this result transmitted reference range: 4.30 - 11.10 10*3/?L. The reference range was not used to interpret this result as normal/abnormal. RBC (test code = 789-8) See_Comment L [Automated naaptol] The system which generated this result transmitted reference range: 3.93 - 5.25 10*6/?L. The reference range was not used to interpret this result as normal/abnormal. HGB (test code = 718-7) 9.3 g/dL 11.6-15.0 L HCT (test code = 4544-3) 29.8 % 35.7-45.2 L MCV (test code = 787-2) 83.5 fL 80.6-95.5 MCH (test code = 785-6) 26.1 pg 25.9-32.8 MCHC (test code = 786-4) 31.2 g/dL 31.6-35.1 L RDW-SD (test code = 64286-2) 41.9 fL 39.0-49.9 RDW-CV (test code = 788-0) 13.6 % 12.0-15.5 PLT (test code = 777-3) See_Comment H [Automated messa ge] The system which generated this result transmitted reference range: 166 - 358 10*3/?L. The reference range was not used to interpret this result as normal/abnormal. MPV (test code = 46470-3) 10.6 fL 9.5-12.9 NRBC/100 WBC (test code = 1694949141) See_Comment [Automated FoodFan ssage] The system which generated this result transmitted reference range: 0.0 - 10.0 /100 WBCs. The reference range was not used to interpret this result as normal/abnormal. NRBC x10^3 (test code = 7924537113) <0.01 See_Comment [Automated messa ge] The system which generated this result transmitted reference range: 10*3/?L. The reference range was not used to interpret this result as normal/abnormal. GRAN MAT (NEUT) % (test code = 770-8) 87.6 % IMM GRAN % (test code = 8618013461) 0.40 % LYMPH % (test code = 736-9) 8.8 % MONO % (test code = 5905-5) 2.8 % EOS % (test code = 713-8) 0.1 % BASO % (test code = 706-2) 0.3 % GRAN MAT x10^3(ANC) (test code = 0086114723) 9.81 10*3/uL 1.88-7.09 H IMM GRAN x10^3 (test code = 1351603461) 0.05 10*3/uL 0.00-0.06 LYMPH x10^3 (test code = 731-0) 0.98 10*3/uL 1.32-3.29 L MONO x10^3 (test code = 742-7) 0.31 10*3/uL 0.33-0.92 L EOS x10^3 (test code = 711-2) <0.03 0.03-0.39 L BASO x10^3 (test code = 704-7) 0.03 10*3/uL 0.01-0.07 Lab Interpretation (test code = 39627-6) Abnormal [facility] with [id number] 11:08:37* Test Item Value Reference Range Interpretation Comme nts WBC (test code = 6690-2) See_Comment H [Automated messa ge] The system which generated this result transmitted reference range: 4.30 - 11.10 10*3/?L. The reference range was not used to interpret this result as normal/abnormal. RBC (test code = 789-8) See_Comment L [Automated messa ge] The system which generated this result transmitted reference range: 3.93 - 5.25 10*6/?L. The reference range was not used to interpret this result as normal/abnormal. HGB (test code = 718-7) 9.3 g/dL 11.6-15.0 L HCT (test code = 4544-3) 29.8 % 35.7-45.2 L MCV (test code = 787-2) 83.5 fL 80.6-95.5 MCH (test code = 785-6) 26.1 pg 25.9-32.8 MCHC (test code = 786-4) 31.2 g/dL 31.6-35.1 L RDW-SD (test code = 97615-6) 41.9 fL 39.0-49.9 RDW-CV (test code = 788-0) 13.6 % 12.0-15.5 PLT (test code = 777-3) See_Comment H [Automated messa ge] The system which generated this result transmitted reference range: 166 - 358 10*3/?L. The reference range was not used to interpret this result as normal/abnormal. MPV (test code = 41130-6) 10.6 fL 9.5-12.9 NRBC/100 WBC (test code = 0580814929) See_Comment [Automated FoodFan ssage] The system which generated this result transmitted reference range: 0.0 - 10.0 /100 WBCs. The reference range was not used to interpret this result as normal/abnormal. NRBC x10^3 (test code = 3006054743) <0.01 See_Comment [Automated messa ge] The system which generated this result transmitted reference range: 10*3/?L. The reference range was not used to interpret this result as normal/abnormal. GRAN MAT (NEUT) % (test code = 770-8) 87.6 % IMM GRAN % (test code = 6101083806) 0.40 % LYMPH % (test code = 736-9) 8.8 % MONO % (test code = 5905-5) 2.8 % EOS % (test code = 713-8) 0.1 % BASO % (test code = 706-2) 0.3 % GRAN MAT x10^3(ANC) (test code = 2475394947) 9.81 10*3/uL 1.88-7.09 H IMM GRAN x10^3 (test code = 9538649442) 0.05 10*3/uL 0.00-0.06 LYMPH x10^3 (test code = 731-0) 0.98 10*3/uL 1.32-3.29 L MONO x10^3 (test code = 742-7) 0.31 10*3/uL 0.33-0.92 L EOS x10^3 (test code = 711-2) <0.03 0.03-0.39 L BASO x10^3 (test code = 704-7) 0.03 10*3/uL 0.01-0.07 Lab Interpretation (test code = 68472-1) [facility]normal [facility]ubation[facility]21-[facility] 21:23:47Gian Negrete CRNA ? ? 01/27/2021 ?4:24 PMIntubationUrgency: elective Airway not difficult General Information and Staff Patient location during procedure: ORResident/APPLICATION DEFENSE MANAGER: Gian Negreet CRNAPerformed:resident/APPLICATION DEFENSE MANAGER Indications and Patient ConditionIndications for airway management: anesthesiaSpontaneous Ventilation: absentSedation level: deepPreoxygenated: yesPatient position: sniffingMILS maintained throughoutMask difficulty assessment: 0 - not attempted Final Airway DetailsFinal airway type: supraglottic airway Successful airway: Supraglottic airway: igel.Size 3 Number of attempts at approach: 1 Additional CommentsAirway dry intactUniversity of Texas Medical BranchCT PELVIS W CONTRAST 2021-01-27 12:56:13A 6 cm right subcutaneous gluteal collection with layering fat, mayrepresent seroma or hematoma. However superimposed infection cannot beruled out. Clinical correlation is recommended. Preliminary Report Dictated by Resident: Cadence Thompson MD., have reviewed this study and agree with theabove report.EXAM: CT PELVIS WITH CONTRAST HISTORY: [place] and that it wasfeeling fine up until last Monday and now it feels "hot and heavy and likesomething is rubbing off."?? COMPARISON: None. TECHNIQUE AND FINDINGS: Contiguous axial imaging from the midabdomenthrough the proximal thighs was performed after the administration ofintravenous Omnipaque contrast. Coronal and sagittal reconstructions wereobtained. ?Auto mA and/or iterative reconstruction were used to reduceradiation dose. FINDINGS: KIDNEYS: No hydronephrosis, stones, or masses. PERITONEUM AND RETROPERITONEUM: No free air or fluid. LYMPH NODES: Mildly prominent right inguinal and right pelvic lymph nodesare seen. GI TRACT: No dilation or wall thickening. The appendix is unremarkable. PELVIS/BLADDER: Unremarkable. VESSELS: Unremarkable. BONES AND SOFT TISSUES: Subcutaneous fat stranding about the ventralabdominal pelvic wall and bilateral gluteal areas likely postsurgical. A4.7 x 5.9 x 6 cm collection of low density with layering fat is seen in theright gluteal area abutting the mid right gluteus prashant muscle. [facility], Radiant Results Inft User - 01/27/2021 7:57 AM CDT EXAM: CT PELVIS WITH CONTRASTHISTORY: [place] in [place] on 12/23/20 and that it wasfeeling fine up until last Monday and now it feels "hot and heavy and likesomething is rubbing off."??COMPARISON: None.TECHNIQUE AND FINDINGS: Contiguous axial imaging from the [...] seen in theright gluteal area abutting the mid right gluteus prashant muscle.IMPRESSIONA 6 cm right subcutaneous gluteal collection with layering fat, mayrepresent seroma or hematoma. However superimposed infectioncannot beruled out. Clinical correlation is recommended. Preliminary Report Dictated by Resident: Cadence Scott MD., have reviewed this study and agree with theabove report.[facility] W [id number] 12:56:13A 6 cm right subcutaneous gluteal collection with layering fat, mayrepresent seroma or hematoma. However superimposed infection cannot beruled out. Clinical correlation is recommended. Preliminary Report Dictated by Resident: Cadence Thompson MD., have reviewed this study and agree with theabove report.EXAM: CT PELVIS WITH CONTRAST HISTORY: had a butt[facility] in [facility] 12/23/20 and that it wasfeeling fine up until last Monday and now it feels "hot and heavy and likesomething is rubbing off."?? COMPARISON: None. TECHNIQUE AND FINDINGS: Contiguous axial imaging from the midabdomenthrough the proximal thighs was performed after the administration ofintravenous Omnipaque contrast. Coronal and sagittal reconstructions wereobtained. ?Auto mA and/or iterative reconstruction were used to reduceradiation dose. FINDINGS: KIDNEYS: No hydronephrosis, stones, or masses.PERITONEUM AND RETROPERITONEUM: No free air or fluid. LYMPH NODES: Mildly prominent right inguinal and right pelvic lymph nodesare seen. GI TRACT: No dilation or wall thickening. The appendix is unremarkable. PELVIS/BLADDER: Unremarkable. VESSELS: Unremarkable. BONES AND SOFT TISSUES: Subcutaneous fat stranding about the ventralabdominal pelvic wall and bilateral gluteal areas likely postsurgical. A4.7 x 5.9 x 6 cm collection of low density with layering fat is seen in theright gluteal area abutting the mid right gluteus prashant muscle. [facility], Radiant Results Inft User - 01/27/2021 7:57 AM CDT EXAM: CT PELVIS WITH CONTRASTHISTORY: had a [place] in [place] on 12/23/20 and that it wasfeeling fine up until last Monday and now it feels "hot and heavy and likesomething is rubbing off."??COMPARISON: None.TECHNIQUE AND FINDINGS: Contiguous axial imaging from the [...] seen in theright gluteal area abutting the mid right gluteus prashant muscle.IMPRESSIONA 6 cm right subcutaneous gluteal collection with layering fat, mayrepresent seroma or hematoma. However superimposed infectioncannot beruled out. Clinical correlation is recommended. Preliminary Report Dictated by Resident: Cadence Scott MD., have reviewed this study and agree with theabove report.[facility] HospitalHEPATIC FUNCTION PANEL (67500) (ALB,T.PRO,BILI T,BU/BC,ALT,AST,ALK PHOS)2021-01-27 06:43:32* Test Item Value Reference Range Interpretation Comme nts TOTAL BILI (test code = 7606237799) 0.3 mg/dL 0.1-1.1 BILI UNCON (test code = 5653244068) 0.1 mg/dL 0.1-1.1 BILI CONJ (test code = 5687009518) 0.0 mg/dL 0.0-0.3 T PROTEIN (test code = 5997342207) 7.0 g/dL 6.3-8.2 ALBUMIN (test code = 9204966078) 3.8 g/dL 3.5-5.0 ALK PHOS (test code = 9531435621) 114 U/L 34-122 ALTv (test code = 1742-6) 16 U/L 5-35 AST(SGOT) (test code = 8081255734) 77 U/L 13-40 H Lab Interpretation (test cod e = 69077-5) Abnormal [facility] HospitalHEP[facility] PAN[facility] (45388) (ALB,T.PRO,BILI T,BU/BC,ALT,AST,ALK PHOS)2021-01-27 06:43:32* Test Item Value Reference Range Interpretation Comme nts TOTAL BILI (test code = 3836924537) 0.3 mg/dL 0.1-1.1 BILI UNCON (test code = 0932638621) 0.1 mg/dL 0.1-1.1 BILI CONJ (test code = 1772217168) 0.0 mg/dL 0.0-0.3 T PROTEIN (test code = 2996010645) 7.0 g/dL 6.3-8.2 ALBUMIN (test code = 9680976296) 3.8 g/dL 3.5-5.0 ALK PHOS (test code = 5526662515) 114 U/L 34-122 ALTv (test code = 1742-6) 16 U/L 5-35 AST(SGOT) (test code = 5895783711) 77 U/L 13-40 H Lab Interpretation (test cod e = 12569-7) [facility]normal [facility] HospitalXR [facility] 1 [id number] 06:12:38No acute cardiopulmonary process. RL: [id number]: [id number] Patient name: FLORES MCCARTHYB: 1990 30 years EXAMINATION: XR CHEST 1 VW Ordering Physician: ROSENDO VANCE CLINICAL HISTORY:fever COMPARISON:None TECHNIQUE:Single frontal view of the chest was performed. The technique of thisexamination is adequate. FINDINGS:Normal lung volumes. No focal infiltrate or consolidation. No effusion orpneumothorax. Heart size is normal withoutedema. Normal aortic contours.No acute osseous abnormality. [facility], Radiant Results Inft User - 01/27/2021 1:13 AM CDT Patient name: FLORES GREGORY: 1990 30 years EXAMINATION: XR CHEST 1 VWOrdering Physician: ROSENDO VANCE CLINICAL HISTORY:fever COMPARISON:NoneTECHNIQUE:Single frontal view of the chest was performed. The technique of thisexamination is adequate.FINDINGS:Normal lung volumes. No focal infiltrate or consolidation. No effusion orpneumothorax. Heart size is normal without edema. Normal aortic contours.No acute osseous abnormality.IMPRESSIONNo acute cardiopulmonary process.RL: [id number]: [id number] signed by Maxime Bolaños at 01/27/2021 1:12 [facility] [id number] 06:12:38No acute cardiopulmonary process. RL: [id number]: [id number] Patient name: FLORES GREGORY: 1990 30 years EXAMINATION: XR CHEST 1 VW Ordering Physician: ROSENDO VANCE CLINICAL HISTORY:fever COMPARISON:None TECHNIQUE:Single frontal view of the chest was performed. The technique of thisexamination is adequate. FINDINGS:Normal lung volumes. No focal infiltrate or consolidation. No effusion orpneumothorax. Heart size is normal withoutedema. Normal aortic contours.No acute osseous abnormality. [facility], Radiant Results Inft User - 01/27/2021 1:13 AM CDT Patient name: FLORES GREGORY: 1990 30 years EXAMINATION: XR CHEST 1 VWOrdering Physician: ROSENDO VANCE CLINICAL HISTORY:fever COMPARISON:NoneTECHNIQUE:Single frontal view of the chest was performed. The technique of thisexamination is adequate.FINDINGS:Normal lung volumes. No focal infiltrate or consolidation. No effusion orpneumothorax. Heart size is normal without edema. Normal aortic contours.No acute osseous abnormality.IMPRESSIONNo acute cardiopulmonary process.RL: [id number]: [id number] signed by Maxime Bolaños at 01/27/2021 1:12 AMUn[facility] Acid Whole [id number] 05:56:59* Test Item Value Reference Range Interpretation Comme nts LACTIC ACID (test code = 8734890308) 1.65 mmol/L 0.50-2.20 Lab Interpretation (test cod e = 10034-6) Normal [facility] Acid Whole [id number] 05:56:59* Test Item Value Reference Range Interpretation Comme nts LACTIC ACID (test code = 1318740324) 1.65 mmol/L 0.50-2.20 Lab Interpretation (test cod e = 25201-6) [facility]ID [facility]2021-01-27 04:56:37* Test Item Value Reference Range Interpretation Comme nts SARS-CoV-2 Rapid ID NOW (test code = 52638-5) Positive Not Detected A ASHLEE (test code = ASHLEE) ID NOW COVID-19 As say is an isothermal nucleic acid amplification test intended for the qualitative detection of nucleic acid from SARS-CoV-2 viral RNA in nasopharyngeal (ACADEMIC AFFAIRS ASSISTANT) specimens. It is used under Emergency Use [...] patient testing if clinically indicated. Lab Interpretation (test code = 57839-4) Abnormal [facility]-19 (ID NOW RAPID TESTING)2021-01-27 04:56:37* Test Item Value Reference Range Interpretation Comme nts SARS-CoV-2 Rapid ID NOW (test code = 77870-8) Positive Not Detected A ASHLEE (test code = ASHLEE) ID NOW COVID-19 As say is an isothermal nucleic acid amplification test intended for the qualitative detection of nucleic acid from SARS-CoV-2 viral RNA in nasopharyngeal (ACADEMIC AFFAIRS ASSISTANT) specimens. It is used under Emergency Use [...] patient testing if clinically indicated. Lab Interpretation (test code = 63011-7) Abnormal [facility] METABOLIC PANEL (NA, K, CL, CO2, GLUCOSE, BUN, CREATININE, CA)2021-01-27 02:53:47* Test Item Value Reference Range Interpretation Comme nts NA (test code = 2630360031) 140 mmol/L 135-145 K (test code = 5340679257) 3.6 mmol/L 3.5-5.0 CL (test code = 8901108728) 101 mmol/L 98-108 CO2 TOTAL (test code = 3413264394) 31 mmol/L 23-31 AGAP (test code = 7658078185) 2-16 BUN (test code = 4700955635) 6 mg/dL 7-23 L GLUCOSE (test code = 3019603077) 130 mg/dL 70-110 H CREATININE (test code = 2927161383) 0.49 mg/dL 0.50-1.04 L CALCIUM (test code = 8936446632) 9.4 mg/dL 8.6-10.6 eGFR (test code = 6620293494) mL/min/1.73m2 ASHLEE (test code = ASHLEE) Association of [...] or abnormalities in imaging tests). Lab Interpretation (test code = 74129-9) Abnormal [facility] METABOLIC PANEL (NA, K, CL, CO2, GLUCOSE, BUN, CREATININE, CA)2021-01-27 02:53:47* Test Item Value Reference Range Interpretation Comme nts NA (test code = 0933085680) 140 mmol/L 135-145 K (test code = 4066556501) 3.6 mmol/L 3.5-5.0 CL (test code = 6195289885) 101 mmol/L 98-108 CO2 TOTAL (test code = 1273395238) 31 mmol/L 23-31 AGAP (test code = 2507165436) 2-16 BUN (test code = 4464553645) 6 mg/dL 7-23 L GLUCOSE (test code = 2068176813) 130 mg/dL 70-110 H CREATININE (test code = 4715829543) 0.49 mg/dL 0.50-1.04 L CALCIUM (test code = 0321621440) 9.4 mg/dL 8.6-10.6 eGFR (test code = 6177337095) mL/min/1.73m2 ASHLEE (test code = ASHLEE) Association of [...] or abnormalities in imaging tests). Lab Interpretation (test code = 84794-8) [facility] WITH [id number] 02:42:45* Test Item Value Reference Range Interpretation Comme nts WBC (test code = 6690-2) See_Comment [Automated naaptol] The system which generated this result transmitted reference range: 4.30 - 11.10 10*3/?L. The reference range was not used to interpret this result as normal/abnormal. RBC (test code = 789-8) See_Comment L [Automated naaptol] The system which generated this result transmitted reference range: 3.93 - 5.25 10*6/?L. The reference range was not used to interpret this result as normal/abnormal. HGB (test code = 718-7) 9.1 g/dL 11.6-15.0 L HCT (test code = 4544-3) 29.4 % 35.7-45.2 L MCV (test code = 787-2) 83.5 fL 80.6-95.5 MCH (test code = 785-6) 25.9 pg 25.9-32.8 MCHC (test code = 786-4) 31.0 g/dL 31.6-35.1 L RDW-SD (test code = 51037-0) 43.4 fL 39.0-49.9 RDW-CV (test code = 788-0) 14.1 % 12.0-15.5 PLT (test code = 777-3) See_Comment [Automated messa ge] The system which generated this result transmitted reference range: 166 - 358 10*3/?L. The reference range was not used to interpret this result as normal/abnormal. MPV (test code = 90451-0) 10.8 fL 9.5-12.9 NRBC/100 WBC (test code = 5357816470) See_Comment [Automated FoodFan ssage] The system which generated this result transmitted reference range: 0.0 - 10.0 /100 WBCs. The reference range was not used to interpret this result as normal/abnormal. NRBC x10^3 (test code = 0455489850) <0.01 See_Comment [Automated Overlay Studioa ge] The system which generated this result transmitted reference range: 10*3/?L. The reference range was not used to interpret this result as normal/abnormal. GRAN MAT (NEUT) % (test code = 770-8) 70.5 % IMM GRAN % (test code = 5211433442) 0.60 % LYMPH % (test code = 736-9) 19.5 % MONO % (test code = 5905-5) 5.6 % EOS % (test code = 713-8) 3.4 % BASO % (test code = 706-2) 0.4 % GRAN MAT x10^3(ANC) (test code = 4766918256) 7.35 10*3/uL 1.88-7.09 H IMM GRAN x10^3 (test code = 5288438237) 0.06 10*3/uL 0.00-0.06 LYMPH x10^3 (test code = 731-0) 2.03 10*3/uL 1.32-3.29 MONO x10^3 (test code = 742-7) 0.58 10*3/uL 0.33-0.92 EOS x10^3 (test code = 711-2) 0.35 10*3/uL 0.03-0.39 BASO x10^3 (test code = 704-7) 0.04 10*3/uL 0.01-0.07 Lab Interpretation (test code = 32002-6) Abnormal [facility] WITH [id number] 02:42:45* Test Item Value Reference Range Interpretation Comme nts WBC (test code = 6690-2) See_Comment [Automated messa ge] The system which generated this result transmitted reference range: 4.30 - 11.10 10*3/?L. The reference range was not used to interpret this result as normal/abnormal. RBC (test code = 789-8) See_Comment L [Automated messa ge] The system which generated this result transmitted reference range: 3.93 - 5.25 10*6/?L. The reference range was not used to interpret this result as normal/abnormal. HGB (test code = 718-7) 9.1 g/dL 11.6-15.0 L HCT (test code = 4544-3) 29.4 % 35.7-45.2 L MCV (test code = 787-2) 83.5 fL 80.6-95.5 MCH (test code = 785-6) 25.9 pg 25.9-32.8 MCHC (test code = 786-4) 31.0 g/dL 31.6-35.1 L RDW-SD (test code = 21624-1) 43.4 fL 39.0-49.9 RDW-CV (test code = 788-0) 14.1 % 12.0-15.5 PLT (test code = 777-3) See_Comment [Automated messa ge] The system which generated this result transmitted reference range: 166 - 358 10*3/?L. The reference range was not used to interpret this result as normal/abnormal. MPV (test code = 77617-6) 10.8 fL 9.5-12.9 NRBC/100 WBC (test code = 4126027544) See_Comment [Automated me ssage] The system which generated this result transmitted reference range: 0.0 - 10.0 /100 WBCs. The reference range was not used to interpret this result as normal/abnormal. NRBC x10^3 (test code = 9890133147) <0.01 See_Comment [Automated messa ge] The system which generated this result transmitted reference range: 10*3/?L. The reference range was not used to interpret this result as normal/abnormal. GRAN MAT (NEUT) % (test code = 770-8) 70.5 % IMM GRAN % (test code = 5054367597) 0.60 % LYMPH % (test code = 736-9) 19.5 % MONO % (test code = 5905-5) 5.6 % EOS % (test code = 713-8) 3.4 % BASO % (test code = 706-2) 0.4 % GRAN MAT x10^3(ANC) (test code = 0104229232) 7.35 10*3/uL 1.88-7.09 H IMM GRAN x10^3 (test code = 4879461750) 0.06 10*3/uL 0.00-0.06 LYMPH x10^3 (test code = 731-0) 2.03 10*3/uL 1.32-3.29 MONO x10^3 (test code = 742-7) 0.58 10*3/uL 0.33-0.92 EOS x10^3 (test code = 711-2) 0.35 10*3/uL 0.03-0.39 BASO x10^3 (test code = 704-7) 0.04 10*3/uL 0.01-0.07 Lab Interpretation (test code = 14451-8) Abnormal [facility] [id number] 02:30:00* Test Item Value Reference Range Interpretation Comme nts POCT PREG (test code = 1605) negative On board controls acceptable with C Line (test code = 3574) present POCT PREG LOT # (test code = 3575) [id number] POCT PREG TEST DATE ( test code = 3576) 07/27/2022 Lab Interpretation (test cod e = 23787-0) Normal [facility] [id number] 02:30:00* Test Item Value Reference Range Interpretation Comme nts POCT PREG (test code = 1605) negative On board controls acceptable with C Line (test code = 3574) present POCT PREG LOT # (test code = 3575) [id number] POCT PREG TEST DATE ( test code = 3576) 07/27/2022 Lab Interpretation (test cod e = 78673-6) Normal [facility] Acid Whole [id number] 02:23:17* Test Item Value Reference Range Interpretation Comme nts LACTIC ACID (test code = 3273740502) 3.15 mmol/L 0.50-2.20 H Lab Interpretation (test cod e = 72352-4) Abnormal [facility] Acid Whole [id number] 02:23:17* Test Item Value Reference Range Interpretation Comme nts LACTIC ACID (test code = 6351731800) 3.15 mmol/L 0.50-2.20 H Lab Interpretation (test cod e = 07025-8) [id number]:07:[facility]* Test Item Value Reference Range Interpretation Comme nts POCT PREG (test code = 1605) Negative On board controls acceptable with C Line (test code = 3574) Yes POCT PREG LOT # (test code = 3575) POCT PREG TEST DATE ( test code = 3576) [facility]
[2023-10-23 05:21] LABS: Absolute Lymphocytes (CBC) 2.1 K/uL (0.7-4.9); Hematocrit 33.1 % (36.0-45.0); Lymphocytes % 22.2 % (15.3-44.8); MCV 74.4 fL (80-100); MPV 8.6 fL (7.6-11.3); Platelets 261 thou/uL (152-406); RBC Red Blood Cell Count 4.44 M/uL (3.86-4.86); Specific Gravity 1.009 (1.005-1.030); Urine Bilirubin NEGATIVE (Negative); Urine Blood Negative (Negative); Urine Clarity Clear (Clear); Urine Color Colorless (Yellow); Urine Glucose NEGATIVE (Negative); Urine Protein NEGATIVE (Negative); Urine Urobilinogen Normal (Normal); Urine pH 5.5 (5.0-7.0)
--- NOTE | 2023-10-23 05:43 | ER ---
Nurse's Notes [facility] Name: Erika Conde Age: 32 yrs Sex: Female : 1990 Arrival Date: 10/23/2023 Time: 03:29 Bed 2 Private MD: Diagnosis: Abdominal Cramping Presentation: 10/23 03:50 Chief complaint: Spouse and/or significant other states: She wakes up every morning vc1 with this abdominal pain but today it is worse. She is 10 weeks and thinks it related to her prenatals. Coronavirus screen: At this time, the client does not indicate any symptoms associated with coronavirus-19. Ebola Screen: Patient negative for fever greater than or equal to 101.5 degrees Fahrenheit, and additional compatible Ebola Virus Disease symptoms Patient denies exposure to infectious person. Patient denies travel to an Ebola-affected area in the 21 days before illness onset. No symptoms or risks identified at this time. Initial Sepsis Screen: Does the patient meet any 2 criteria? No. Patient's initial sepsis screen is negative. Does the patient have a suspected source of infection? No. Patient's initial sepsis screen is negative. Risk Assessment: Do you want to hurt yourself or someone else? Patient reports no desire to harm self or others. Onset of symptoms is unknown. 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 - Social history:: Smoking status: Patient denies any tobacco usage or history of. Screenin:57 [facility] ED Fall Risk Assessment (Adult) History of falling in the last 3 months, tm6 including since admission No falls in past 3 months (0 pts) Confusion or Disorientation No (0 pts) Intoxicated or Sedated No (0 pts) Impaired Gait No (0 pts) Mobility Assist Device Used No (0 pt) Altered Elimination No (0 pt) Score/Fall Risk Level 0 - 2 = Low Risk Oriented to surroundings, Maintained a safe environment. 03:58 Abuse screen: Denies threats or abuse. Nutritional screening: No deficits noted. vc1 Tuberculosis screening: No symptoms or risk factors identified. Assessment: 03:57 General: Appears uncomfortable, Behavior is calm, cooperative. Pain: Complains of pain tm6 in abdomen. Neuro: Level of Consciousness is awake, alert, obeys commands, Oriented to person, place, time, situation. Cardiovascular: Capillary refill < 3 seconds Patient's skin is warm and dry. Respiratory: Airway is patent Respiratory effort is even, unlabored, Respiratory pattern is regular, symmetrical. GI: Bowel sounds present X 4 quads. Abd is soft and non tender Reports nausea, vomiting. : No signs and/or symptoms were reported regarding the genitourinary system. EENT: No signs and/or symptoms were reported regarding the EENT system. Derm: No signs and/or symptoms reported regarding the dermatologic system. Derm: No signs and/or symptoms reported regarding the dermatologic system. Musculoskeletal: No signs and/or symptoms reported regarding the musculoskeletal system. 06:05 Reassessment: Patient and/or family updated on plan of care and expected duration. Pain tm6 level reassessed. Patient is alert, oriented x 3, equal unlabored respirations, skin warm/dry/pink. Patient states feeling better. Vital Signs: 03:50 BP 124 / 80; Pulse 82; Resp 17; Temp 98.1; Pulse Ox 100% ; Weight 78.47 kg; Height 5 vc1 ft. 5 in. ; Pain 5/10; 04:51 BP 105 / 66; Pulse 75; Pulse Ox 100% on R/A; tm6 06:05 BP 118 / 82; Pulse 60; Resp 19; Temp 96.5; Pulse Ox 100% on R/A; Pain 0/10; tm6 03:50 Body Mass Index 28.79 (78.47 kg, 165.1 cm) vc1 03:50 Pain Scale: Adult vc1 06:05 Pain Scale: Adult tm6 ED Course: 03:31 Patient arrived in ED. jj6 03:34 Mars Lozada MD is Attending Physician. ec2 03:57 Triage completed. vc1 03:58 Arm band placed on right wrist. vc1 03:59 Patient has correct armband on for positive identification. Bed in low position. Call vc1 light in reach. Pulse ox on. NIBP on. 04:21 Transvaginal OB US In Process Unspecified. EDMS 05:11 Inserted saline lock: 20 gauge in left antecubital area, using aseptic technique. tm6 06:05 No provider procedures requiring assistance completed. IV discontinued, intact, tm6 bleeding controlled, No redness/swelling at site. Pressure dressing applied. 06:06 Provided Education on: vitamins and following up with obgyn. tm6 Administered Medications: 05:11 Drug: Ondansetron IVP 4 mg IVP once; over 2 minutes Route: IVP; Site: left antecubital; tm6 05:11 Drug: NS 0.9% IV 1000 ml IV at 1 bolus Per protocol; 1000 mL bolus Route: IV; Rate: 1 tm6 bolus; Site: left antecubital; 05:11 Drug: Acetaminophen PO 1000 mg PO once Route: PO; tm6 05:11 Drug: Famotidine IVP 20 mg IVP once; dilute with 10 mL 0.9% NaCl; give over 2 minutes tm6 Route: IVP; Site: left antecubital; Medication: 04:00 VIS not applicable for this client. vc1 Outcome: 05:43 Discharge ordered by . ec2 06:05 Discharged to home ambulatory, with family, tm6 06:05 Condition: stable 06:05 Discharge instructions given to patient, family, Instructed on discharge instructions, follow up and referral plans. Demonstrated understanding of instructions, follow-up care, 06:06 Patient left the ED. tm6 Signatures: Dispatcher [employer] Nell Prasad6 Isabel Robles RN RN vc1 Mars Lozada MD MD ec2 Judith Carrasco RN RN tm6
--- NOTE | 2023-10-23 05:43 | EDPHYS ---
Physician Documentation [facility] Name: Erika Conde Age: 32 yrs Sex: Female : 1990 Arrival Date: 10/23/2023 Time: 03:29 Bed 2 Private MD: ED Physician HPI: 10/23 04:27 This 32 yrs old Female presents to ER via Ambulatory with complaints of EST 11 ec2 WKS GESTATION, Abdominal Pain, Abdominal Cramping. 04:27 Patient arrives today for evaluation of abdominal cramping along with 11-week ec2 . Patient reports previous ultrasonography with normal . Reports abdominal cramping, associated nausea without vomiting, no vaginal bleeding.. CONTRACTS INTERN: 03:59 4, Full Term 3, Living 3, LMP 08/01/2023, unknown vc1 Historical: - Allergies: 03:57 No Known Allergies; vc1 - Home Meds: 03:57 Vitamin Oral [Active]; vc1 - PMHx: 03:57 Asthma; vc1 - PSHx: 03:57 None; vc1 - Immunization history:: Flu vaccine status is unknown. - Social history:: Smoking status: Patient denies any tobacco usage or history of. ROS: 04:29 Constitutional: as per hpi ec2 Exam: 04:29 Constitutional: GEN: NAD Head: atraumatic Eyes: EOMI Ears: External ears are ec2 normal. CV: regular rate LUNGS: no respiratory distress ABD: non-distended, soft, nontender, no guarding, not rigid SKIN: no evidence of rashes MSK: no evidence of trauma NEURO: moves all extremities equally Vital Signs: 03:50 BP 124 / 80; Pulse 82; Resp 17; Temp 98.1; Pulse Ox 100% ; Weight 78.47 kg; Height 5 vc1 ft. 5 in. ; Pain 5/10; 04:51 BP 105 / 66; Pulse 75; Pulse Ox 100% on R/A; tm6 06:05 BP 118 / 82; Pulse 60; Resp 19; Temp 96.5; Pulse Ox 100% on R/A; Pain 0/10; tm6 03:50 Body Mass Index 28.79 (78.47 kg, 165.1 cm) vc1 03:50 Pain Scale: Adult vc1 06:05 Pain Scale: Adult tm6 MDM: 03:42 Patient medically screened. ec2 04:29 Data reviewed: vital signs. ED course: Patient arrives today for evaluation of ec2 abdominal cramping and send . Examination remarkable for well-appearing nontoxic individual is otherwise in no acute distress with a reassuring examination. Will obtain ultrasound, basic lab work, urine studies. Will treat the patient symptoms and reassess patient. Suspect abdominal cramping secondary to , will suspicion for ectopic given patient previously has had confirmed IUP, low suspicion for given lack of vaginal bleeding.. 05:35 ED course: Urine noninfectious appearing. . ec2 05:42 ED course: Ultrasound shows live IUP.. ED course: I reassessed the patient remains ec2 well-appearing in no acute distress. Will discharge home. Return precautions given.. 10/23 03:36 Order name: CBC with Diff; Complete Time: 05:52 ec2 10/23 03:36 Order name: CMP; Complete Time: 05:52 ec2 10/23 03:36 Order name: Lipase; Complete Time: 05:52 ec2 10/23 03:36 Order name: Urinalysis w/ reflexes; Complete Time: 05:35 ec2 10/23 03:36 Order name: HCG-Quantitative; Complete Time: 05:52 ec2 10/23 05:32 Order name: CBC Smear Scan; Complete Time: 05:52 EDMS 10/23 03:36 Order name: Transvaginal OB US ec2 10/23 03:36 Order name: IV Saline Lock; Complete Time: 05:11 ec2 10/23 03:36 Order name: Labs collected and sent; Complete Time: 05:11 ec2 Administered Medications: 05:11 Drug: Ondansetron IVP 4 mg IVP once; over 2 minutes Route: IVP; Site: left antecubital; tm6 05:11 Drug: NS 0.9% IV 1000 ml IV at 1 bolus Per protocol; 1000 mL bolus Route: IV; Rate: 1 tm6 bolus; Site: left antecubital; 05:11 Drug: Acetaminophen PO 1000 mg PO once Route: PO; tm6 05:11 Drug: Famotidine IVP 20 mg IVP once; dilute with 10 mL 0.9% NaCl; give over 2 minutes tm6 Route: IVP; Site: left antecubital; Disposition Summary: 10/23/23 05:43 Discharge Ordered Notes: Location: Home ec2 Condition: Stable ec2 Diagnosis - Abdominal Cramping ec2 Followup: ec2 - With: Private Physician - When: - Reason: Re-evaluation by your physician Discharge Instructions: - Discharge Summary Sheet ec2 - First Trimester of ec2 Forms: - Medication Reconciliation Form ec2 - Thank You Letter ec2 - Antibiotic Education ec2 - Prescription Opioid Use ec2 - Patient Portal Instructions ec2 - Leadership Thank You Letter ec2 Signatures: Dispatcher [employer] Isabel Velázquez RN RN vc1 Mars Lozada MD MD ec2 Judith Carrasco RN RN tm6
[2023-10-23 05:48] LABS: Albumin 3.2 g/dL (3.4-5.0); Bilirubin Total 0.2 mg/dL (0.2-1.0); Potassium 4.2 mEq/L (3.5-5.1)
[2023-10-23 05:50] LABS: Anisocytosis 3+; Blood Morphology Comment NOTED (NOT SEEN); Ovalocytes 2+; Platelet Estimate ADEQ; White Blood Cell Scan OK (OK)
[2023-10-23 06:29] VITALS: BP 118/82; TEMP 96.5; O2SAT 100
--- NOTE | 2023-10-23 09:37 | RAD REPORT ---
EXAM DESCRIPTION: US - Transvaginal OB - 10/23/2023 4:19 am CLINICAL HISTORY: Abdominal cramping, . LMP 08/02/2023. COMPARISON: None TECHNIQUE: Grayscale, color Doppler, and duplex Doppler transvaginal pelvis images. FINDINGS: Single live intrauterine . heart rate 161 BPM. Uterus anteverted measuring 14.3 x 7.0 x 8.6 cm. No leiomyoma. Uterine cervix closed and measures 4.6 cm length. Estimated date of delivery based on this US exam 05/12/2024. Average ultrasound age of 11 weeks 1 day. [place] rump length 4.27 cm (11 weeks 1 day +/- 7 days). Both ovaries are not well visualized. No adnexal mass. No significant free pelvic fluid. IMPRESSION: Single live intrauterine (11 weeks 1 day +/- 7 days). Electronically signed by: Jose Carlos Pitt MD 10/23/2023 05:34 AM HEAT REGULATOR Due to temporary technical issues with the PACS/Fluency reporting system, reports are being signed by the in house radiologists without review as a courtesy to insure prompt reporting. The interpreting radiologist is fully responsible for the content of the report.
== END ==
LOC: ER 03:29
DX: O26.891 Other specified pregnancy related conditions, first trimester (principal); Z3A.11 11 weeks gestation of pregnancy
CPT/HCPCS: 36415; 76817; 80053; 81003; 83690; 84702; 85025; 96374; 96375; 99284; J2405; J7030

== ENCOUNTER 2023-12-10 22:33 | Emergency (ER) | payer SELFPAY ==
[2023-12-10] MEDS ORDERED: ALBUTEROL 2.5 MG/3 ML NEB SOL ONE ×2 (22:38→23:32)
[2023-12-10] MEDS ORDERED: IPRATROPIUM BROM 0.5MG/2.5ML ONE ×2 (22:38→23:32)
--- OUTSIDE RECORDS SUMMARY | 2023-12-10 22:38 | XMS REPORT | Continuity of Care Document ---
Author Name Unknown Address [address] [facility] [address] [place] [address] [facility] thconnect Address [address] [facility] [address] [place] [address] Care Team Providers Care Batch Mixer Name Role Phone JACQUELINE VILLALOBOS Primary Care Physician Unav ailable JACQUELINE VILLALOBOS Attending Clinician Unavail able HANH MCDONALD Attending Clinician Unavailable [facility], [facility] Res-1st Attending Clinician Unavailable Hanh Mcdonald MD Attending Clinician [phone] SARAH ROBB Attending Clinician Unavailable Sarah Robb MD Attending Clinician [phone] [facility] Attending Clinician Unavailable Wilfredo Jacqueline MENDIETA Attending Clinician + LEE ANN HUSSEIN Attending Clinician Unavailable Lee Ann Hussein MD Attending Clinician [phone] MISTY HOOKER Attending Clinician Unavailable Misty Tineo Attending Clinician [phone] WYATT HUGGINS Attending Clinician Unavailab OTILIA Ibrahim Attending Clinician Unavailable Otilia Ortiz Attending Clinician [phone] PENNY HOLCOMB Attending Clinician Unavailable Penny Holcomb MD Attending Clinician [phone] Eder RN, Elena Holm Attending Clinician [phone] Yaima Julio Attending Clinician [phone] Rosendo Vance MD Attending Clinician [phone] Toby Pruitt MD Attending Clinician + [phone] Visit, [facility] Nurse Attending Clinician Unava ilable Doctor Unassigned, [place] Attending Clinician U navailable LEE ANN HUSSEIN Admitting Clinician Unavailable MISTY HOOKER Admitting Clinician Unavailable OTILIA BRITTON Admitting Clinician Unavailable Madina CARD, Rosendo Admitting Clinician [phone] Payers Payer Name Policy Type Policy Number Effective Date Expirati on Date Source DEWAYNE MOM CHIP ROM[employer]O [employer] [id number] 2022 00:00:00 Problems Condition Name Condition Details Condition Category Status Onset Date Resolution Date Last Treatment Date Treating Clinician Comments Source Miscarriag e Miscarriag e Disease Active 09-26 00:00: 00 Overview: Formattin g of this note might be different from the original. Recent beta at [facility] Complete Complete Disease Active 09-26 00:00: 00 Overview: Formattin g of this note might be different from the original. Recent beta at [facility] Abnormal maternal glucose tolerance, antepartum Abnormal maternal glucose tolerance, antepartum Disease Active 09-23 00:00: 00 Overview: Formattin g of this note might be different from the original. Pending 3hr gtt [facility] Supervisio n of high-risk Supervisio n of high-risk Disease Active 09-21 00:00: 00 [facility] Vaginal bleeding during Vaginal bleeding during Disease Active 09-21 00:00: 00 [facility] Trichomona l vaginitis during Trichomona l vaginitis during Disease Active 09-21 00:00: 00 Overview: Formattin g of this note might be different from the original. Dx at the ED on meds, pending demi [facility] UTI in UTI in Disease Active 09-21 00:00: 00 Overview: Formattin g of this note might be different from the original. Dx at the ED on meds, pending demi [facility] Multiparit y Multiparit y Disease Active 09-21 00:00: 00 [facility] Cellulitis of right buttock Cellulitis of right buttock Disease Active -02 00:00: 00 [facility] Obesity in Obesity in Disease Active 10-19 00:00: 00 [facility] Well woman exam Well woman exam Disease Active 10-19 00:00: 00 [facility] Contracept hermila management Contracept hermila management Disease Active 10-19 00:00: 00 [facility] Obesity (BMI 30-39.9) Obesity (BMI 30-39.9) Disease Active 10-19 00:00: 00 [facility] Contracept hermila management Contracept hermila management Disease Active 10-19 00:00: 00 [facility] Vaginal symptom Vaginal symptom Disease Active 1-15 00:00: 00 [facility] History of asthma History of asthma Disease Active 1-04 00:00: 00 [facility] Allergies, Adverse Reactions, Alerts Allergy Name Allergy Type Status Severity Reaction(s) Onset Date Inactive Date Treating Clinician Comments Source NO KNOWN ALLERGIE S Drug Class Active [facility] Social History Social Habit Start Date Stop Date Quantity Comments Source ASSERTION 2022-08-25 00:00:00 [facility] Alcohol intake 2022-10-13 00:00:00 2022-10-13 00:00:00 Current non-drinker of alcohol (finding) [facility] Exposure to SARS-CoV-2 (event) 2022-09-17 00:00:00 2022-09-27 08:53:00 Not sure [facility] Tobacco use and exposure 2022-09-21 00:00:00 2022-09-21 00:00:00 Smokeless tobacco non-user [facility] Sex Assigned At 1990 00:00:00 1990 00:00:00 [facility] Smoking Status Start Date Stop Date Source Never smoked tobacco [facility] Medications Ordered Medication Name Filled Medication Name Start Date Stop Date Current Medication? Ordering Clinician Indication Dosage Frequency Signature (SIG) Comments Components Source ibuprofen (IBU) tablet 800 mg 09-27 16:30: 00 09-27 15:49 :00 No [id number] 800mg [facility] ibuprofen 600 mg tablet 09-27 00:00: 00 Yes [id number] 600mg Take 1 tablet by mouth every 6 (six) hours as needed (alternate with tylenol for pain) for up to 20 doses. [facility] ALBUTEROL SULFATE INHALE 09-21 14:43: 24 09-21 00:00 :00 No 1{puff} Inhale 1 Puff every 8 (eight) hours as needed for Other (Wheezing) . [facility] Nitrofurant oin&Nit. Macrocryst (MACROBID) 100 mg capsule 09-20 00:00: 00 Yes [id number] 100mg Take 1 capsule by mouth 2 (two) times daily. [facility] metroNIDAZO LE 500 mg tablet 09-20 00:00: 00 Yes TAKE 4 TABLETS BY MOUTH ONCE DAILY NOW FOR 1 DOSE [facility] NaCl 0.9% (NS) bolus infusion 1,000 mL 11-09 23:45: 00 11-10 01:15 :00 No 1000mL at 999 mL/hr, 1,000 mL, IV Infusion, ONCE, 1 dose, On Mon11/09/21 at 1845, MICHAELA [facility] ketorolac (TORADOL) injection 30 mg 11-09 23:45: 00 11-09 23:36 :00 No 30mg 30 mg, Slow IV Push, ONCE, 1 dose, On Mon11/09/21 at 1845, MICHAELA [facility] ondansetron (ZOFRAN (PF)) injection 4 mg 11-09 23:45: 00 11-09 23:36 :00 No 4mg 4 mg, Slow IV Push, ONCE, 1 dose, On Mon11/09/21 at 1845, MICHAELA [facility] benzonatate 100 mg capsule 11-09 00:00: 00 Yes [id number] 100mg Take 1 capsule by mouth 3 (three) times daily as needed for Cough. [facility] ondansetron (ZOFRAN) 4 mg tablet 11-09 00:00: 00 Yes [id number] 4mg Take 1 tablet by mouth every 8 (eight) hours as needed for Nausea and Vomiting (N/V). [facility] predniSONE 20 mg tablet 11-09 00:00: 00 11-15 04:59 :00 No [id number] 40mg Take 2 tablets by mouth daily for 5 days. [facility] ipratropium -albuteroL (DUONEB) 0.5 mg-3 mg(2.5 mg base)/3 mL nebulizer solution 3 mL 2020-08 09:30: 00 08-06 08:37 :00 No 3mL 3 mL, Inhalation , ONCE, 1 dose, On Mon08/06/21 at 0330, Routine [facility] dexamethaso ne (DECADRON PHOSPHATE) injection 10 mg 2020-08 09:30: 00 08-06 08:27 :00 No 10mg 10 mg, Oral, ONCE, 1 dose, On Mon08/06/21 at 0330, STAT [facility] ipratropium -albuteroL (DUONEB) 0.5 mg-3 mg(2.5 mg base)/3 mL nebulizer solution 3 mL 2020-08 07:45: 00 08-06 06:51 :00 No 3mL 3 mL, Inhalation , ONCE, 1 dose, On Mon08/06/21 at 0145, Routine [facility] albuterol 90 mcg/actuati on inhaler 2020-08 00:00: 00 Yes [id number] 2{puff} Inhale 2 Puffs every 4 (four) hours as needed for Wheezing or Shortness of Breath. [facility] albuterol 2.5 mg /3 mL (0.083 %) nebulizer solution 2020-08 00:00: 00 09-21 00:00 :00 No [id number] 2.5mg Inhale 3 mL every 4 (four) hours. May also nebulize one extra every 6 hours. [facility] predniSONE 50 mg tablet 2020-08 00:00: 00 11-09 00:00 :00 No [id number] 50mg Take 1 tablet by mouth daily. [facility] ALBUTEROL SULFATE INHALE 02-16 21:27: 26 Yes 1{puff} Inhale 1 Puff every 8 (eight) hours as needed for Other (Wheezing) . [facility] ALBUTEROL SULFATE INHALE 02-16 16:27: 26 Yes 1{puff} Inhale 1 Puff every 8 (eight) hours as needed for Other (Wheezing) . [facility] ALBUTEROL SULFATE INHALE 01-29 17:25: 36 Yes 1{puff} Inhale 1 Puff every 8 (eight) hours as needed for Other (Wheezing) . [facility] KCL (KLOR-CON M20) tablet 40 mEq 01-29 15:30: 00 01-29 16:35 :00 No 40meq 40 mEq, Oral, ONCE, 1 dose, Mon01/29/21 at 1030, Routine [facility] morpHINE injection 2 mg 01-29 05:30: 00 01-29 04:25 :00 No 2mg 2 mg, Slow IV Push, ONCE, 1 dose, Mon01/29/21 at 0030, Routine [facility] acidophilus 100 million cell tablet 01-29 00:00: 00 Yes [id number] 1g Take 1 tablet by mouth 2 (two) times daily. [facility] sulfamethox azole-trime thoprim (BACTRIM DS) 800-160 mg per tablet 01-29 00:00: 00 02-06 04:59 :00 No [id number] 1{tbl} Take 1 tablet by mouth 2 (two) times daily for 7 days. [facility] ALBUTEROL SULFATE INHALE 01-28 14:37: 52 Yes 1{puff} Inhale 1 Puff every 8 (eight) hours as needed for Other (Wheezing) . [facility] albuterol (PROVENTIL) 2.5 mg /3 mL (0.083 %) nebulizer solution 2.5 mg 01-28 14:37: 36 Yes 2.5mg 2.5 mg, Inhalation , Q6HPRN, Starting Poppy 01/28/21 at 0937, Until Discontinu ed, Shortness of Breath, Wheezing [facility] morpHINE injection 2 mg 01-28 13:17: 25 01-28 21:16 :25 No 2mg 2 mg, Slow IV Push, Q6HPRN, Starting Poppy 01/28/21 at 0817, Until Poppy 01/28/21 at 1616, Routine, Pain (scale 7-10) [facility] ketorolac (TORADOL) injection 30 mg 01-27 22:08: 51 01-27 22:09 :00 No 30mg 30 mg, Slow IV Push, PRN, 1 dose, Starting Mon01/27/21 at 1708, Until Mon01/27/21 at 1709, Routine, Pain (scale 4-6), [facility] : TOBY PRUITT [facility] enoxaparin (LOVENOX) injection 40 mg 01-27 22:00: 00 Yes 40mg 40 mg, Subcutaneo us, DAILY, First dose on Mon01/27/21 at 1700, Until Discontinu ed, Routine [facility] morpHINE injection 2 mg 01-27 21:45: 35 01-27 22:22 :02 No 2mg 2 mg, Slow IV Push, Q5MIN PRN, 5 doses, Starting Mon01/27/21 at 1645, Until Mon01/27/21 at 1722, Routine, Pain (scale 4-6), PACU [facility] HYDROcodone -acetaminop hen (NORCO) 10-325 mg tablet 1 tablet 01-27 21:34: 03 Yes 1{tbl} 1 tablet, Oral, Q6HPRN, Starting Mon01/27/21 at 1634, Until Discontinu ed, Routine, Pain (scale 4-6) [facility] HYDROcodone -acetaminop hen (NORCO 5) 5-325 mg tablet 1 tablet 01-27 21:33: 48 Yes 1{tbl} 1 tablet, Oral, Q6HPRN, Starting Mon01/27/21 at 1633, Until Discontinu ed, Routine, Pain (scale 1-3) [facility] PHENYLephri ne 1000 mcg/10 mL in 0.9% NaCl syringe 01-27 21:16: 00 01-27 21:36 :50 No Slow IV Push, ONCE INTRA PROCEDURE, Starting Mon01/27/21 at 1616, Until Mon01/27/21 at 1636, Routine, Intra-op [facility] ondansetron (ZOFRAN (PF)) injection 01-27 21:14: 00 01-27 21:36 :50 No Slow IV Push, ONCE INTRA PROCEDURE, Starting Mon01/27/21 at 1614, Until Mon01/27/21 at 1636, Routine, Intra-op [facility] dexamethaso ne (DECADRON PHOSPHATE) injection 01-27 21:12: 00 01-27 21:36 :50 No IV Push, ONCE INTRA PROCEDURE, Starting Mon01/27/21 at 1612, Until Mon01/27/21 at 1636, Routine, Intra-op [facility] lidocaine 1% (XYLOCAINE) 100 mg/10 mL (1 %) injection 01-27 21:07: 00 01-27 21:36 :50 No Intravenou s, ONCE INTRA PROCEDURE, Starting Mon01/27/21 at 1607, Until Mon01/27/21 at 1636, Routine, Intra-op [facility] propofoL IV infusion 01-27 21:07: 00 01-27 21:36 :50 No Intravenou s, ONCE INTRA PROCEDURE, Starting Mon01/27/21 at 1607, Until Mon01/27/21 at 1636, Routine, Intra-op [facility] FENTanyl PF (SUBLIMAZE (PF)) injection 01-27 21:07: 00 01-27 21:36 :50 No Intravenou s, ONCE INTRA PROCEDURE, Starting Mon01/27/21 at 1607, Until Mon01/27/21 at 1636, Routine, Intra-op [facility] midazolam (VERSED) injection 01-27 20:57: 00 01-27 21:36 :50 No IV Push, ONCE INTRA PROCEDURE, Starting Mon01/27/21 at 1557, Until Mon01/27/21 at 1636, Routine, Intra-op [facility] lactated ringers IV infusion 01-27 20:57: 00 01-27 21:36 :50 No IV Infusion, CONTINUOUS PRN, Starting Mon01/27/21 at 1557, Until Mon01/27/21 at 1636, Routine, Intra-op [facility] vancomycin 1500 mg in NS 500 mL IV Piggyback RTU 1,500 mg 01-27 16:00: 00 Yes 1500mg 1,500 mg, IV Infusion, Q12H ABX, First dose on Mon01/27/21 at 1100, Until Discontinu ed
Reas on for Anti-Infec tive: Documented Infection< br>Documen mariah Infection Site: Skin / Soft Tissue
Duration of Therapy: 10 days [facility] piperacilli n-tazobacta m (ZOSYN) 3.375 g in NaCl 0.9% (NS) 100 mL MINI-BAG 01-27 13:00: 00 Yes 3.375g 3.375 g, IV Piggyback, Q6H ABX, First dose (after last reorder) on Mon01/27/21 at 0800, Until Discontinu ed, 100 mL
Reas on for Anti-Infec tive: Documented Infection< br>Documen mariah Infection Site: Skin / Soft Tissue
Duration of Therapy: Other (see Comments) [facility] NaCl 0.9% (NS) IV infusion 1,000 mL 01-27 11:45: 00 01-28 13:18 :05 No 1000mL at 125 mL/hr, IV Infusion, CONTINUOUS , Starting Mon01/27/21 at 0645, Until Poppy 01/28/21 at 0818, Routine [facility] NaCl 0.9% (NS) IV infusion 2,000 mL 01-27 07:15: 00 01-27 07:36 :00 No 2000mL at 125 mL/hr, IV Infusion, ONCE, 1 dose, Mon01/27/21 at 0215, Routine [facility] ondansetron (ZOFRAN (PF)) injection 4 mg 01-27 06:12: 31 Yes 4mg 4 mg, Slow IV Push, Q6HPRN, Starting Mon01/27/21 at 0112, Until Discontinu ed, Routine, Nausea and Vomiting (N/V) [facility] morpHINE injection 2 mg 01-27 06:12: 24 01-27 21:34 :15 No 2mg 2 mg, Slow IV Push, Q4HPRN, Starting Mon01/27/21 at 0112, Until Mon01/27/21 at 1634, Routine, Pain (scale 7-10) [facility] piperacilli n-tazobacta m (ZOSYN) 3.375 g in NaCl 0.9% (NS) 100 mL MINI-BAG 01-27 04:15: 00 01-27 03:40 :00 No 3.375g 3.375 g, IV Piggyback, ONCE, 1 dose, Tu01/26/21 at 2315, 100 mL
Reas on for Anti-Infec tive: Documented Infection< br>Documen mariah Infection Site: Skin / Soft Tissue
Duration of Therapy: Other (see Comments) [facility] vancomycin (VANCOCIN) 1,000 mg in NaCl 0.9% (NS) 250 mL VIAL-MATE IV piggyback 01-27 04:00: 00 01-27 04:57 :00 No 1000mg 1,000 mg, IV Piggyback, ONCE, 1 dose, 01/26/21 at 2300, 250 mL
Reas on for Anti-Infec tive: Documented Infection< br>Documen mariah Infection Site: Skin / Soft Tissue
Duration of Therapy: Other (see Comments) [facility] iopamidol (ISOVUE 370-500 mL) injection 120 mL 01-27 04:00: 00 01-27 02:50 :00 No [id number] 120mL 120 mL, Intravenou s, ONCE, 1 dose, 01/26/21 at 2300, Routine [facility] NaCl 0.9% (NS) bolus infusion 1,000 mL 01-27 03:45: 00 01-27 03:57 :00 No 1000mL at 999 mL/hr, 1,000 mL, IV Infusion, ONCE, 1 dose, 01/26/21 at 2245, STAT [facility] ondansetron (ZOFRAN (PF)) injection 4 mg 01-27 03:30: 00 01-27 02:19 :00 No 4mg 4 mg, Slow IV Push, ONCE, 1 dose, 01/26/21 at 2230, MICHAELA [facility] morpHINE injection 4 mg 01-27 03:30: 00 01-27 02:18 :00 No 4mg 4 mg, Slow IV Push, ONCE, 1 dose, 01/26/21 at 2230, STAT [facility] medroxyPROG ESTERone (DEPO-PROVE RA) injection 150 mg 10-19 18:00: 00 09-20 17:59 :00 No [id number] [facility]5 [facility]/0.5 mL nebulizer solution 10-25 00:00: 00 Yes 2.5mg Use 0.5 mL as directed every 6 (six) hours as needed for Wheezing. [facility] Vital Signs Vital Name Observation Time Observation Value Comments S arcelia Systolic blood pressure 2022-09-27 14:52:00 107 mm[Hg] [facility] Diastolic blood pressure 2022-09-27 14:52:00 78 mm[Hg] [facility] Heart rate 2022-09-27 14:52:00 66 /min [facility] Body temperature 2022-09-27 14:52:00 36.78 Brisa [facility] Respiratory rate 2022-09-27 14:52:00 18 /min [facility] Body height 2022-09-27 14:52:00 152.4 cm [facility] Body weight 2022-09-27 14:52:00 82.101 kg [facility] BMI 2022-09-27 14:52:00 35.35 kg/m2 [facility] Systolic blood pressure 2022-09-21 20:36:00 118 mm[Hg] [facility] Diastolic blood pressure 2022-09-21 20:36:00 78 mm[Hg] [facility] Heart rate 2022-09-21 20:36:00 104 /min Un[facility] Body temperature 2022-09-21 20:36:00 36.61 Brisa [facility] Respiratory rate 2022-09-21 20:36:00 18 /min [facility] Body height 2022-09-21 20:36:00 152.4 cm [facility] Body weight 2022-09-21 20:36:00 82.725 kg [facility] BMI 2022-09-21 20:36:00 35.62 kg/m2 [facility] Systolic blood pressure 2022-09-20 22:20:00 124 mm[Hg] [facility] Diastolic blood pressure 2022-09-20 22:20:00 79 mm[Hg] [facility] Heart rate 2022-09-20 22:20:00 69 /min [facility] Respiratory rate 2022-09-20 22:20:00 18 /min [facility] Oxygen saturation in Arterial blood by Pulse oximetry 2022-09-20 22:20:00 98 /min [facility] Body temperature 2022-09-20 14:24:00 36.72 Br[facility] Body height 2022-09-20 14:24:00 152.4 cm [facility] Body weight 2022-09-20 14:24:00 81.647 kg [facility] BMI 2022-09-20 14:24:00 35.15 kg/m2 [facility] Heart rate 2021-11-10 01:00:00 91 /min [facility] Body temperature 2021-11-10 01:00:00 37.94 [facility] Oxygen saturation in Arterial blood by Pulse oximetry 2021-11-10 01:00:00 99 /min [facility] Systolic blood pressure 2021-11-10 00:31:00 104 mm[Hg] [facility] Diastolic blood pressure 2021-11-10 00:31:00 68 mm[Hg] [facility] Respiratory rate 2021-11-10 00:31:00 18 /min [facility] Body height 2021-11-09 22:23:00 157.5 cm [facility] Body weight 2021-11-09 22:23:00 72.576 kg [facility] BMI 2021-11-09 22:23:00 29.26 kg/m2 [facility] Systolic blood pressure 2021-08-06 10:41:00 116 mm[Hg] [facility] Diastolic blood pressure 2021-08-06 10:41:00 79 mm[Hg] [facility] Heart rate 2021-08-06 10:41:00 88 [facility] Respiratory rate 2021-08-06 10:41:00 22 /min [facility] Oxygen saturation in Arterial blood by Pulse oximetry 2021-08-06 10:41:00 97 /min [facility] Body temperature 2021-08-06 06:47:00 37.33 [facility] Body height 2021-08-06 06:47:00 149.9 cm [facility] Body weight 2021-08-06 06:47:00 83.915 kg [facility] BMI 2021-08-06 06:47:00 37.37 kg/m2 [facility] Systolic blood pressure 2021-02-16 21:26:00 125 mm[Hg] [facility] Diastolic blood pressure 2021-02-16 21:26:00 87 mm[Hg] [facility] Heart rate 2021-02-16 21:26:00 80 /min [facility] Body temperature 2021-02-16 21:26:00 36.33 [facility] Respiratory rate 2021-02-16 21:26:00 16 /min [facility] Body weight 2021-02-16 21:26:00 81.194 kg [facility] BMI 2021-02-16 21:26:00 36.09 kg/m2 [facility] Oxygen saturation in Arterial blood by Pulse oximetry 2021-02-16 21:26:00 99 /min [facility] Systolic blood pressure 2021-01-29 16:17:00 112 mm[Hg] [facility] Diastolic blood pressure 2021-01-29 16:17:00 79 mm[Hg] [facility] Body temperature 2021-01-29 16:17:00 36.72 [facility] Respiratory rate 2021-01-29 16:17:00 18 /min [facility] Oxygen saturation in Arterial blood by Pulse oximetry 2021-01-29 16:17:00 100 /min [facility] Heart rate 2021-01-29 14:00:00 77 /min [facility] Body weight 2021-01-28 08:45:00 84.959 kg [facility] BMI 2021-01-28 08:45:00 37.76 kg/m2 [facility] Body height 2021-01-27 20:48:00 150 [facility] 2021-01-27 20:48:00 150 cm [facility] Body weight 2021-01-27 20:48:00 86.2 kg [facility] BMI 2021-01-27 20:48:00 37.76 kg/m2 [facility] Systolic blood pressure 2021-01-27 20:05:00 108 mm[Hg] [facility] Diastolic blood pressure 2021-01-27 20:05:00 67 mm[Hg] [facility] Heart rate 2021-01-27 20:05:00 90 /min [facility] Body temperature 2021-01-27 20:05:00 36.67 Brisa [facility] Respiratory rate 2021-01-27 20:05:00 20 /min [facility] Oxygen saturation in Arterial blood by Pulse oximetry 2021-01-27 20:05:00 100 /min [facility] Systolic blood pressure 2019-04-22 19:06:00 130 mm[Hg] [facility] Diastolic blood pressure 2019-04-22 19:06:00 82 mm[Hg] [facility] Heart rate 2019-04-22 19:06:00 84 /min [facility] Body temperature 2019-04-22 19:06:00 36 Brisa [facility] Respiratory rate 2019-04-22 19:06:00 16 /min [facility] Body height 2019-04-22 19:06:00 152.4 cm [facility] Body weight 2019-04-22 19:06:00 85.503 kg [facility] BMI 2019-04-22 19:06:00 36.81 kg/m2 [facility] Procedures Procedure Date / Time Performed Performing Clinician Source POCT TEST 2022-09-27 15:38:[facility]22-09-27 00:00:00 Nayla Ventura [facility] GLUCOSE 1 HOUR POST PRANDIAL 2022-09-22 15:21:00 Jacqueline Villalobos [facility] TOTAL BETA HCG ASSAY 2022-09-21 21:30:00 Sedrick Villalobos [facility] CBC WITH DIFF 2022-09-21 21:30:00 aJcqueline Villalobos [facility] HEPATITIS B SURFACE ANTIGEN 2022-09-21 21:30:00 Jacqueline Villalobos [facility] HCV ANTIBODY 2022-09-21 21:30:00 Jacqueline Villalobos [facility] HB ABO GROUPING 2022-09-21 21:30:00 Jacqueline Villalobos [facility] HIV 1/2 AG-AB WITH REFLEX 2022-09-21 21:30:00 Jacqueline Villalobos [facility] PAP SMEAR-LIQUID BASED-CP 2022-09-21 21:30:00 Jacqueline Villalobos [facility] POCT TEST 2022-09-21 20:29:00 Jorge Villalobos [facility] POCT URINALYSIS W/O SPECIFIC GRAVITY 2022-09-21 20:29:00 Jacqueline Villalobos [facility] ADC CLC OR LCC ONLY - WET PREP 2022-09-20 22:24:00 Leeanna Naranjo [facility] US FIRST TRIMESTER LESS THAN 14 WEEKS WITH TRANSVAGINAL 2022-09-20 20:12:04 Lee Ann Hussein [facility] URINALYSIS 2022-09-20 15:15:00 [facility] LIPASE 2022-09-20 15:11:00 Lee Ann Hussein [facility] TEST, SERUM 2022-09-20 15:11:00 Itz Hussein [facility] [facility] COMP. METABOLIC PANEL (52278) 2022-09-20 15:11:00 Lee Ann Hussein [facility] TOTAL BETA HCG ASSAY 2022-09-20 15:11:00 Lexie Hussein [facility] CBC WITH DIFF 2022-09-20 15:11:00 Lee Ann Hussein [facility] PROTHROMBIN TIME / INR 2022-09-20 15:11:00 Tristen Hussein [facility] ACTIVATED PARTIAL THRMPLAS FLORA 2022-09-20 15:11:00 Lee Ann Hussein [facility] CONSENT/REFUSAL FOR DIAGNOSIS AND TREATMENT 2022-09-20 14:05:15 Doctor Unassigned, [place] [facility] XR CHEST 1 VW 2021-11-09 23:31:00 Misty Hooker [facility] CBC WITH DIFF 2021-11-09 23:31:00 Misty Hooker [facility] POCT TEST 2021-11-09 23:21:00 Talya Hooker [facility] URINALYSIS 2021-11-09 23:19:00 Walter [facility] RAPID INFLUENZA A/B 2021-11-09 23:19:00 Talya Hooker [facility] COVID-19 (ID NOW RAPID TESTING) 2021-11-09 23:19:00 Mitsy Hooker [facility] LIPASE 2021-11-09 23:13:[facility]OLIC PANEL (85370) 2021-11-09 23:13:00 Misty Hooker [facility] NOTICE OF PRIVACY PRACTICES 2021-11-09 22:13:35 Doctor Unassigned, [place] [facility] CONSENT/REFUSAL FOR DIAGNOSIS AND TREATMENT 2021-11-09 22:13:21 Doctor Unassigned, [place] [facility] XR CHEST 1 VW 2021-08-06 09:20:00 Otilia Britton [facility] RAPID INFLUENZA A/B 2021-08-06 08:25:00 Otilia Britton [facility] COVID-19 (ID NOW RAPID TESTING) 2021-08-06 08:25:00 Otilia Britton [facility] BASIC METABOLIC PANEL (NA, K, CL, CO2, GLUCOSE, BUN, CREATININE, CA) 2021-01-29 10:37:00 Chinedu Fragoso [facility] CBC WITH DIFF 2021-01-29 10:37:00 Chinedu Fragoso Valeria [facility] VANCOMYCIN TROUGH 2021-01-29 03:57:00 Leeroy Mae [facility] BASIC METABOLIC PANEL (NA, K, CL, CO2, GLUCOSE, BUN, CREATININE, CA) 2021-01-28 10:27:00 [facility] CBC WITH DIFF 2021-01-28 10:27:00 [facility]OLIC PANEL (NA, K, CL, CO2, GLUCOSE, BUN, CREATININE, CA) 2021-01-28 10:27:00 [facility] CBC WITH DIFF 2021-01-28 10:27:00 Madina [facility] INTUBATION 2021-01-27 21:23:47 Gian Negrete [facility] ASPIRATE OR ABSCESS CULTURE(AEROBIC/ANAEROBIC) 2021-01-27 21:22:56 Penny Holcomb [facility] ASPIRATE OR ABSCESS CULTURE(AEROBIC/ANAEROBIC) 2021-01-27 21:22:56 Penny Holcomb [facility] INCISION AND DRAINAGE BUTTOCK 2021-01-27 20:50:00 Zhang [facility] INCISION AND DRAINAGE BUTTOCK 2021-01-27 20:50:00 Penny Holcomb [facility] XR CHEST 1 VW 2021-01-27 05:56:15 [facility] 1 VW 2021-01-27 [facility]:56[facility] 2021-01-27 05:47:00 Jon Britton [facility] LACTIC ACID WHOLE BLOOD 2021-01-27 05:47:00 Jon Britton [facility] COVID-19 (ID NOW RAPID TESTING) 2021-01-27 04:33:00 Otilia Britton [facility] COVID-19 (ID NOW RAPID TESTING) 2021-01-27 04:33:00 Otilia Britton [facility] CT PELVIS W CONTRAST 2021-01-27 02:56:37 Otilia Britton [facility] CT PELVIS W CONTRAST 2021-01-27 02:56:37 Otilia Britton [facility] POCT TEST 2021-01-27 02:30:00 Otilia Britton [facility] POCT TEST 2021-01-27 02:30:00 Otilia Britton [facility] BLOOD CULTURE SCREEN 2021-01-27 02:20:00 Otilia Britton [facility] BLOOD CULTURE SCREEN 2021-01-27 02:20:00 Otilia Britton [facility] HEPATIC FUNCTION PANEL (98503) (ALB,T.PRO,BILI T,BU/BC,ALT,AST,ALK PHOS) 2021-01-27 02:09:00 [facility] BASIC METABOLIC PANEL (NA, K, CL, CO2, GLUCOSE, BUN, CREATININE, CA) 2021-01-27 02:09:00 Otilia Britton [facility] CBC WITH DIFF 2021-01-27 02:09:00 Otilia Britton [facility] LACTIC ACID WHOLE BLOOD 2021-01-27 02:09:00 Jon Britton [facility] HEPATIC FUNCTION PANEL (29289) (ALB,T.PRO,BILI T,BU/BC,ALT,AST,ALK PHOS) 2021-01-27 02:09:00 [facility] BASIC METABOLIC PANEL (NA, K, CL, CO2, GLUCOSE, BUN, CREATININE, CA) 2021-01-27 02:09:00 Otilia Britton [facility] CBC WITH DIFF 2021-01-27 02:09:00 Otilia Britton [facility] LACTIC ACID WHOLE BLOOD 2021-01-27 02:09:00 Jon Britton [facility] BLOOD CULTURE SCREEN 2021-01-27 02:08:00 Otilia Britton [facility] BLOOD CULTURE SCREEN 2021-01-27 02:08:00 Otilia Britton [facility] CONSENT/REFUSAL FOR DIAGNOSIS AND TREATMENT 2021-01-27 01:14:15 Doctor Unassigned, [place] [facility] CONSENT/REFUSAL FOR DIAGNOSIS AND TREATMENT 2021-01-27 01:14:15 Doctor Unassigned, [place] [facility] NOTICE OF PRIVACY PRACTICES 2021-01-27 01:13:39 Doctor Unassigned, [place] [facility] NOTICE OF PRIVACY PRACTICES 2021-01-27 01:13:39 Doctor Unassigned, [place] [facility] POCT TEST 2019-04-22 23:07:00 Jorge Villalobos [facility] NO SHOW OR MISSED APPOINTMENT POLICY ACKNOWLEDGEMENT 2019-04-22 18:55:00 Doctor Unassigned, [place] [facility] Encounters Start Date/Time End Date/Time Encounter Type Admission Type Attending [facility] Facility Care Department Encounter ID Source 2021-06-27 22:32:36 Emergency [facility] [id number] [facility] 2023-11-06 08:40:08 2023-11-06 08:40:08 Outpatient SFA SFA [id number] Peter Lofton 2023-10-31 08:41:42 2023-10-31 08:41:42 Outpatient SFA SFA [id number] Peter Lofton 2023-10-27 16:36:05 2023-10-27 16:36:05 Outpatient SFA SFA [id number] Peter Lofton 2023-10-19 08:37:30 2023-10-19 08:37:30 Outpatient SFA SFA [id number] Peter Lofton 2023-10-07 09:40:05 2023-10-07 09:40:05 Outpatient SFA SFA [id number] Peter Lofton 2023-10-05 11:37:17 2023-10-05 11:37:17 Outpatient SFA SFA [id number] Peter Lofton 2023-09-27 14:30:58 2023-09-27 14:30:58 Outpatient SFA SFA [id number] Peter Lofton 2023-09-20 09:14:08 2023-09-20 09:14:08 Outpatient SFA SFA [id number] Peter Lofton 2023-09-18 14:23:01 2023-09-18 14:23:01 Outpatient SFA SFA [id number] Peter Lofton 2022-10-20 09:00:00 2022-10-20 09:00:00 Outpatient R JACQUELINE VILLALOBOS [facility] [id number] [facility] 2022-10-11 10:45:00 2022-10-11 15:58:23 Outpatient R HANH MCDONALD [facility] [id number] [facility] 2022-10-11 10:45:00 2022-10-11 15:58:23 Telemedici ne Visit Trimester, [facility] Hanh Mcdonald [facility] 1..114 350.1.13.10 4.2.7.2.686 [id number] [facility] 2022-09-27 08:45:00 2022-09-27 09:49:09 Outpatient R SARAH ROBB [facility] [id number] [facility] 2022-09-27 08:45:00 2022-09-27 09:49:09 Routine Visit Trimester, [facility] Sarah Robb [facility] 1.0.114 350.1.13.10 4.2.7.2.686 [id number] [facility] 2022-09-26 08:15:00 2022-09-26 08:40:50 Outpatient R JACQUELINE VILLALOBOS [facility] [id number] [facility] 2022-09-26 08:15:00 2022-09-26 08:40:50 Graphic Art Technician Visit Lab, [facility] Jacqueline Villalobos [facility] ENVIRONMENTAL SOLUTIONS ENGINEER [facility] 1.840.114 350.1.13.10 4.2.7.2.686 [id number] [facility] 2022-09-23 00:00:00 2022-09-23 00:00:00 Telephone Jacqueline Villalobos [facility] ENVIRONMENTAL SOLUTIONS ENGINEER [facility] 1.2.840.114 350.1.13.10 4.2.7.2.686 [id number] [facility] 2022-09-22 08:30:00 2022-09-22 08:30:00 Graphic Art Technician Visit Lab, [facility] Jacqueline Villalobos [facility] ENVIRONMENTAL SOLUTIONS ENGINEER [facility] 1.840.114 350.1.13.10 4.2.7.2.686 [id number] [facility] 2022-09-22 08:30:00 2022-09-22 08:29:14 Outpatient R JACQUELINE VILLALOBOS [facility] [id number] [facility] 2022-09-21 14:15:00 2022-09-21 15:35:56 Outpatient R JACQUELINE VILLALOBOS [facility] [id number] [facility] 2022-09-21 14:15:00 2022-09-21 15:35:56 Initial Visit Jacqueline Villalobos [facility] ENVIRONMENTAL SOLUTIONS ENGINEER [facility] 1.840.114 350.1.13.10 4.2.7.2.686 [id number] [facility] 2022-09-20 08:20:00 2022-09-20 16:48:00 Emergency X LEE ANN HUSSEIN [facility] ERT [id number] [facility] 2022-09-20 08:20:00 2022-09-20 16:48:00 Emergency Lee Ann Hussein [facility] 1.840.114 350.1.13.10 4.2.7.2.686 [id number] [facility] 2021-11-09 17:29:00 2021-11-09 20:21:00 Emergency X MISTY HOOKER [facility] ERT [id number] [facility] 2021-11-09 17:29:00 2021-11-09 20:21:00 Emergency Hooker, Misty [facility] 1.2840.114 350.1.13.10 4.2.7.2.686 [id number] [facility] 2021-10-23 09:30:00 2021-10-23 09:30:00 Outpatient R WYATT HUGGINS [facility] [id number] [facility] 2021-08-06 00:30:00 2021-08-06 04:47:00 Emergency X OTILIA BRITTON [facility] ERT [id number] [facility] 2021-08-06 00:30:00 2021-08-06 04:47:00 Emergency Otilia Britton S [facility] 1.2840.114 350.1.13.10 4.2.7.2.686 [id number] [facility] 2021-02-16 16:00:00 2021-02-16 17:01:15 Outpatient R PENNY HOLCOMB [facility] [id number] [facility] 2021-02-16 15:56:33 2021-02-16 17:01:15 Office Visit Penny Holcomb [facility] Professio [facility] 1.20.114 350.1.13.10 4.2.7.2.686 [id number] [facility] 2021-02-03 00:00:00 2021-02-03 00:00:00 Patient Outreach EderElena Barrera [facility] 1.2840.114 350.1.13.10 4.2.7.2.686 [id number] [facility] 2021-02-01 00:00:00 2021-02-01 00:00:00 Transition of Care Yaima Julio 1.2840.114 350.1.13.10 4.2.7.2.686 [id number] [facility] 2021-01-26 20:38:00 2021-01-29 12:24:00 Hospital Encounter Otilia Britton [facility] 1.2.840.114 350.1.13.10 4.2.7.2.686 [id number] [facility] 2021-01-27 15:57:00 2021-01-27 16:36:00 Anesthesia Event Toby Pruitt [facility] Surgical [place] 1.2.840.114 350.1.13.10 4.2.7.2.686 [id number] [facility] 2021-01-27 15:30:00 2021-01-27 16:29:00 Surgery Penny Holcomb [facility] 1.2.840.114 350.1.13.10 4.2.7.2.686 [id number] [facility] 2019-04-22 13:54:22 2019-04-22 14:17:45 Nurse Visit Visit, [facility] Nurse Jacqueline Villalobos [facility] ENVIRONMENTAL SOLUTIONS ENGINEER [facility] 1.2.840.114 350.1.13.10 4.2.7.2.686 [id number] [facility] 2019-04-22 00:00:00 2019-04-22 00:00:00 Orders Only Doctor Unassigned, [place] [facility] 1.2.840.114 350.1.13.10 4.2.7.2.686 [id number] [facility] Results Test Description Test Time Test Comments Results Result Co mments Source POCT [id number] 15:49:00* Test Item Value Reference Range Interpretation Comme nts POCT PREG (test code = 1605) Positive On board controls acceptable with C Line (test code = 3574) Yes POCT PREG LOT # (test code = 3575) POCT PREG TEST DATE ( test code = 3576) [facility] [id number] 15:40:00* Test Item Value Reference Range Interpretation Comme nts POCT PREG (test code = 1605) Positive On board controls acceptable with C Line (test code = 3574) Yes POCT PREG LOT # (test code = 3575) POCT PREG TEST DATE ( test code = 3576) Lab Interpretation (test cod e = 87005-7) [facility]normal [facility]-AB WITH [id number] 11:31:52* Test Item Value Reference Range Interpretation Comme nts HIV Semi-quantitative (test code = 11288-6) Negative Negative ASHLEE (test code = ASHLEE) Non-reactive for HIV-1 antigen and HIV-1/HIV-2 antibodies. ?No laboratory evidence of HIV infection. ?Repeat in 2-4 weeks if acute HIV infection is suspected. [facility] WORK[facility], BLOOD [id number] 10:13:07 * Test Item Value Reference Range Interpretation Comme nts ABO & RH (test code = 20) O POSITIVE Performed at [facility] [[email or web address]] Laboratory Services [facility] Blood [address] Free: [phone] No. [id number] IAT (test code = 1185) Negative Performed at [facility] [[email or web address]] Laboratory [facility] Blood [address] Free: [phone] No. [id number] [facility] [id number] 08:18:32* Test Item Value Reference Range Interpretation Comme nts HCV Ab (test code = 26754-3) Negative HCV Semi-Quantitative (test code = 96464-8) [facility]AT[facility] SURFACE [id number] 08:01:30 * Test Item Value Reference Range Interpretation Comme nts HBsAg Semi-Quantitative (raghavendra t code = 5195-3) Negative Negative [facility] HCG [id number] 07:56:47* Test Item Value Reference Range Interpretation Comme nts BETA HCG (test code = 1781916294) See_Comment [Automated messa ge] The system which generated this result transmitted reference range: Non- female and male patients: <5 mIU/mL. The reference range was not used to interpret this result as normal/abnormal. ASHLEE (test code = ASHLEE) Gestational Age ?Range (mIU/mL) 1-10 ?Weeks ?03-66314655-62 Weeks ?60739-91784016-26 Weeks ?9625-71125900-52 Weeks ?1626-133463 Biotin has been reported to cause a negative bias, interpret results relative to patient's use of biotin. [facility] WITH [id number] 06:34:02* Test Item Value Reference Range Interpretation Comme nts WBC (test code = 6690-2) See_Comment [Automated FiPatha StarGreetz] The system which generated this result transmitted reference range: 4.30 - 11.10 10*3/?L. The reference range was not used to interpret this result as normal/abnormal. RBC (test code = 789-8) See_Comment [Automated FiPatha StarGreetz] The system which generated this result transmitted [...] g/dL 31.6-35.1 L RDW-SD (test code = 03629-1) 48.1 fL 39.0-49.9 RDW-CV (test code = 788-0) 17.2 % 12.0-15.5 H PLT (test code = 777-3) See_Comment [Automated FiPatha StarGreetz] The system which generated this result transmitted reference range: 166 - 358 10*3/?L. The reference range was not used to interpret this result as normal/abnormal. MPV (test code = 18388-0) 11.3 fL 9.5-12.9 NRBC/100 WBC (test code = 4574732011) See_Comment [Automated me ssage] The system which generated this result transmitted reference range: 0.0 - 10.0 /100 WBCs. The reference range was not used to interpret this result as normal/abnormal. NRBC x10^3 (test code = 3954367467) See_Comment [Automated messa ge] The system which generated this result transmitted reference range: 10*3/?L. The reference range was not used to interpret this result as normal/abnormal. GRAN MAT (NEUT) % (test code = 770-8) 70.4 % IMM GRAN % (test code = 2793830491) 0.60 % LYMPH % (test code = 736-9) 21.6 % MONO % (test code = 5905-5) 5.7 % EOS % (test code = 713-8) 1.1 % BASO % (test code = 706-2) 0.6 % GRAN MAT x10^3(ANC) (test code = 5258909023) 7.10 10*3/uL 1.88-7.09 H IMM GRAN x10^3 (test code = 3307855326) 0.06 10*3/uL 0.00-0.06 LYMPH x10^3 (test code = 731-0) 2.18 10*3/uL 1.32-3.29 MONO x10^3 (test code = 742-7) 0.57 10*3/uL 0.33-0.92 EOS x10^3 (test code = 711-2) 0.11 10*3/uL 0.03-0.39 BASO x10^3 (test code = 704-7) 0.06 10*3/uL 0.01-0.07 Lab Interpretation (test code = 90628-3) Abnormal [facility] URINALYSIS W/O SPECIFIC [id number] 20:30:00* Test Item Value Reference Range Interpretation [...] = 3257) Large Negative - Negati ve [facility] URINALYSIS W/O SPECIFIC [id number] 20:30:00* Test Item Value Reference Range Interpretation [...] = 3257) Large Negative - Negati ve [facility] [id number] 20:29:00* Test Item Value Reference Range Interpretation Comme nts POCT PREG (test code = 1605) Positive On board controls acceptable with C Line (test code = 3574) Yes POCT PREG LOT # (test code = 3575) POCT PREG TEST DATE ( test code = 3576) [facility] [id number] 20:29:00* Test Item Value Reference Range Interpretation Comme nts POCT PREG (test code = 1605) Positive On board controls acceptable with C Line (test code = 3574) Yes POCT PREG LOT # (test code = 3575) POCT PREG TEST DATE ( test code = 3576) [facility] BHCG (QUANTITATIVE)2022-09-20 17:15:40* Test Item Value Reference Range Interpretation Comme nts BETA HCG (test code = 9297135106) See_Comment [Automated messa ge] The system which generated this result transmitted reference range: Non- female and male patients: <5 mIU/mL. The reference range was not used to interpret this result as normal/abnormal. ASHLEE (test code = ASHLEE) Gestational Age ?Range (mIU/mL) 1-10 ?Weeks ?75-34352540-94 Weeks ?92526-49715814-22 Weeks ?4427-66431765-75 Weeks ?5157-742855 Biotin has been reported to cause a negative bias, interpret results relative to patient's use of biotin. [facility] Center[facility]REG[facility]NCY TEST, [id number] 16:16:57* Test Item Value Reference Range Interpretation Comme [facility] PREG SERUM (test code = 6605089293) Positive ASHLEE (test code = ASHLEE) Positive greater t lewis or equal to 10 IU/L hCG. [facility] CenterACTIVATED PARTIAL THRMPLAS [id number] 16:14:06* Test Item Value Reference Range Interpretation Comme [facility] APTT Patient (test code = 3173-2) See_Comment [Automated message] The system which generated this result transmitted reference range: 23 - 38 Seconds. The reference range was not used to interpret this result as normal/abnormal. ASHLEE (test code = ASHLEE) The [facility] patient population mean normal value for aPTT is 30 seconds. Lab Interpretation (test code = 18737-5) Normal [facility] CenterPROTHROMBIN TIME / [id number] 16:12:09* Test Item Value Reference Range Interpretation Comme [facility] PROTIME PATIENT (test code = 5964-2) See_Comment [Automated messa ge] The system which generated this result transmitted reference range: 12.0 - 14.7 Seconds. The reference range was not used to interpret this result as normal/abnormal. INR (test code = 6301-6) Normal INR <1.1; Warfarin Therapeutic range 2.0 to 3.0 or 2.5 to 3.5, depending upon the indications. Lab Interpretation (test code = 87092-4) Normal [facility] Center[facility] METABOLIC PANEL (18771)2022-09-20 15:58:03* Test Item Value Reference Range Interpretation Comme nts NA (test code = 0612676685) 136 mmol/L 135-145 K (test code = 9924088864) 4.1 mmol/L 3.5-5.0 CL (test code = 6286739475) 102 mmol/L 98-108 CO2 TOTAL (test code = 5604272701) 25 mmol/L 23-31 AGAP (test code = 4832310798) 2-16 BUN (test code = 9189982126) 9 mg/dL 7-23 GLUCOSE (test code = 3920754780) 94 mg/dL 70-110 CREATININE (test code = 0820250928) 0.48 mg/dL 0.50-1.04 L TOTAL BILI (test code = 3657034397) 0.4 mg/dL 0.1-1.1 CALCIUM (test code = 9456182118) 8.8 mg/dL 8.6-10.6 T PROTEIN (test code = 0603350771) 7.4 g/dL 6.3-8.2 ALBUMIN (test code = 6203270458) 4.5 g/dL 3.5-5.0 ALK PHOS (test code = 9556983283) 77 U/L 34-122 ALTv (test code = 1742-6) 15 U/L 5-35 AST(SGOT) (test code = 4826063420) 19 U/L 13-40 eGFR (test code = 4674550840) mL/min/1.73m2 ASHLEE (test code = ASHLEE) Association [...] imaging tests). Lab Interpretation (test code = 83562-7) Abnormal [facility]20[facility] 15:58:03* Test Item Value Reference Range Interpretation Comme nts LIPASE (test code = 7908557467) 74 U/L 0-220 Lab Interpretation (test cod e = 18259-4) Normal [facility] WITH [id number] 15:56:47* Test Item Value Reference Range Interpretation Comme nts WBC (test code = 6690-2) See_Comment [Automated Cervalis] The system which generated this result transmitted reference range: 4.30 - 11.10 10*3/?L. The reference range was not used to interpret this result as normal/abnormal. RBC (test code = 789-8) See_Comment [Automated Cervalis] The system which generated this result transmitted [...] g/dL 31.6-35.1 L RDW-SD (test code = 51112-8) 47.3 fL 39.0-49.9 RDW-CV (test code = 788-0) 17.0 % 12.0-15.5 H PLT (test code = 777-3) See_Comment [Automated messa ge] The system which generated this result transmitted reference range: 166 - 358 10*3/?L. The reference range was not used to interpret this result as normal/abnormal. MPV (test code = 32503-2) 10.5 fL 9.5-12.9 NRBC/100 WBC (test code = 9625361764) See_Comment [Automated Phytel ssage] The system which generated this result transmitted reference range: 0.0 - 10.0 /100 WBCs. The reference range was not used to interpret this result as normal/abnormal. NRBC x10^3 (test code = 9760750940) See_Comment [Automated messa ge] The system which generated this result transmitted reference range: 10*3/?L. The reference range was not used to interpret this result as normal/abnormal. GRAN MAT (NEUT) % (test code = 770-8) 58.6 % IMM GRAN % (test code = 2808210275) 0.80 % LYMPH % (test code = 736-9) 30.9 % MONO % (test code = 5905-5) 6.6 % EOS % (test code = 713-8) 2.4 % BASO % (test code = 706-2) 0.7 % GRAN MAT x10^3(ANC) (test code = 8705294105) 5.29 10*3/uL 1.88-7.09 IMM GRAN x10^3 (test code = 0303449626) 0.07 10*3/uL 0.00-0.06 H LYMPH x10^3 (test code = 731-0) 2.79 10*3/uL 1.32-3.29 MONO x10^3 (test code = 742-7) 0.60 10*3/uL 0.33-0.92 EOS x10^3 (test code = 711-2) 0.22 10*3/uL 0.03-0.39 BASO x10^3 (test code = 704-7) 0.06 10*3/uL 0.01-0.07 Lab Interpretation (test code = 45937-0) Abnormal [facility] WITH [id number] 23:41:07* Test Item Value Reference Range Interpretation Comme nts WBC (test code = 6690-2) See_Comment [Automated messa ge] The system which generated this result transmitted reference range: 4.30 - 11.10 10*3/?L. The reference range was not used to interpret this result as normal/abnormal. RBC (test code = 789-8) See_Comment [Automated messa ge] The system which [...] g/dL 31.6-35.1 L RDW-SD (test code = 11831-8) 40.8 fL 39.0-49.9 RDW-CV (test code = 788-0) 15.0 % 12.0-15.5 PLT (test code = 777-3) See_Comment H [Automated messa ge] The system which generated this result transmitted reference range: 166 - 358 10*3/?L. The reference range was not used to interpret this result as normal/abnormal. MPV (test code = 18111-3) 10.5 fL 9.5-12.9 NRBC/100 WBC (test code = 1789125249) See_Comment [Automated Phytel ssage] The system which generated this result transmitted reference range: 0.0 - 10.0 /100 WBCs. The reference range was not used to interpret this result as normal/abnormal. NRBC x10^3 (test code = [id number]) <0.01 See_Comment [Automated messa ge] The system which generated this result transmitted reference range: 10*3/?L. The reference range was not used to interpret this result as normal/abnormal. GRAN MAT (NEUT) % (test code = 770-8) 83.2 % IMM GRAN % (test code = [id number]) 0.60 % LYMPH % (test code = 736-9) 8.5 % MONO % (test code = 5905-5) 6.6 % EOS % (test code = 713-8) 0.8 % BASO % (test code = 706-2) 0.3 % GRAN MAT x10^3(ANC) (test code = 2562164736) 7.73 10*3/uL 1.88-7.09 H IMM GRAN x10^3 (test code = 9163936776) 0.06 10*3/uL 0.00-0.06 LYMPH x10^3 (test code = 731-0) 0.79 10*3/uL 1.32-3.29 L MONO x10^3 (test code = 742-7) 0.61 10*3/uL 0.33-0.92 EOS x10^3 (test code = 711-2) 0.07 10*3/uL 0.03-0.39 BASO x10^3 (test code = 704-7) 0.03 10*3/uL 0.01-0.07 Lab Interpretation (test code = 06312-1) [facility] (61012[facility]2021-11-09 23:32:45* Test Item Value Reference Range Interpretation Comme nts NA (test code = 9230108688) 135 mmol/L 135-145 K (test code = 4437121131) 4.3 mmol/L 3.5-5.0 CL (test code = 5327171846) 100 mmol/L 98-108 CO2 TOTAL (test code = 7163033477) 26 mmol/L 23-31 AGAP (test code = 2147964418) 2-16 BUN (test code = 8924135786) 8 mg/dL 7-23 GLUCOSE (test code = 7275638471) 98 mg/dL 70-110 CREATININE (test code = 5772784527) 0.56 mg/dL 0.50-1.04 TOTAL BILI (test code = 9775249760) 0.5 mg/dL 0.1-1.1 CALCIUM (test code = 8686453371) 8.7 mg/dL 8.6-10.6 T PROTEIN (test code = 5481671387) 7.7 g/dL 6.3-8.2 ALBUMIN (test code = 3071082538) 4.7 g/dL 3.5-5.0 ALK PHOS (test code = 9173789467) 82 U/L 34-122 ALTv (test code = 1742-6) 14 U/L 5-35 AST(SGOT) (test code = 3571303644) 34 U/L 13-40 eGFR (test code = 0089279851) mL/min/1.73m2 ASHLEE (test code = ASHLEE) Association [...] or urine or abnormalities in imaging tests). [facility]:32:25* Test Item Value Reference Range Interpretation Comme nts LIPASE (test code = 2067489334) 70 U/L 0-220 Lab Interpretation (test cod e = 03245-7) Normal [facility] [id number] 23:21:00* Test Item Value Reference Range Interpretation Comme nts POCT PREG (test code = 1605) NEGATIVE On board controls acceptable with C Line (test code = 3574) PRESENT POCT PREG LOT # (test code = 3575) [id number] POCT PREG TEST DATE ( test code = 3576) Lab Interpretation (test cod e = 91004-3) Normal [facility] [place] METABOLIC PANEL (NA, K, CL, CO2, GLUCOSE, BUN, CREATININE, CA)2021-01-29 11:56:16* Test Item Value Reference Range Interpretation Comme nts NA (test code = 1394721620) 140 mmol/L 135-145 K (test code = 9063487037) 3.4 mmol/L 3.5-5.0 L CL (test code = 5508598203) 106 mmol/L 98-108 CO2 TOTAL (test code = 5512019955) 27 mmol/L 23-31 AGAP (test code = 5314358273) 2-16 BUN (test code = 9281975465) 12 mg/dL 7-23 GLUCOSE (test code = 0703566272) 90 mg/dL 70-110 CREATININE (test code = 7103503811) 0.88 mg/dL 0.50-1.04 CALCIUM (test code = 7215142420) 8.6 mg/dL 8.6-10.6 eGFR (test code = 1972108330) mL/min/1.73m2 ASHLEE (test code = ASHLEE) Association [...] imaging tests). Lab Interpretation (test code = 67510-0) Abnormal [facility] WITH [id number] 11:26:15* Test Item Value Reference Range Interpretation Comme nts WBC (test code = 6690-2) See_Comment [Automated Cervalis] The system which generated this result transmitted reference range: 4.30 - 11.10 10*3/?L. The reference range was not used to interpret this result as normal/abnormal. RBC (test code = 789-8) See_Comment L [Automated FiPatha StarGreetz] The system which generated this result transmitted [...] g/dL 31.6-35.1 L RDW-SD (test code = 62083-6) 42.7 fL 39.0-49.9 RDW-CV (test code = 788-0) 14.1 % 12.0-15.5 PLT (test code = 777-3) See_Comment [Automated FiPatha StarGreetz] The system which generated this result transmitted reference range: 166 - 358 10*3/?L. The reference range was not used to interpret this result as normal/abnormal. MPV (test code = 22993-7) 10.5 fL 9.5-12.9 NRBC/100 WBC (test code = 5817897698) See_Comment [Automated me ssage] The system which generated this result transmitted reference range: 0.0 - 10.0 /100 WBCs. The reference range was not used to interpret this result as normal/abnormal. NRBC x10^3 (test code = 7271589422) <0.01 See_Comment [Automated messa ge] The system which generated this result transmitted reference range: 10*3/?L. The reference range was not used to interpret this result as normal/abnormal. GRAN MAT (NEUT) % (test code = 770-8) 68.3 % IMM GRAN % (test code = 8367679011) 0.70 % LYMPH % (test code = 736-9) 19.6 % MONO % (test code = 5905-5) 7.1 % EOS % (test code = 713-8) 3.8 % BASO % (test code = 706-2) 0.5 % GRAN MAT x10^3(ANC) (test code = 0032420027) 6.23 10*3/uL 1.88-7.09 IMM GRAN x10^3 (test code = 1699513443) 0.06 10*3/uL 0.00-0.06 LYMPH x10^3 (test code = 731-0) 1.79 10*3/uL 1.32-3.29 MONO x10^3 (test code = 742-7) 0.65 10*3/uL 0.33-0.92 EOS x10^3 (test code = 711-2) 0.35 10*3/uL 0.03-0.39 BASO x10^3 (test code = 704-7) 0.05 10*3/uL 0.01-0.07 Lab Interpretation (test code = 30585-2) [facility]normal [facility] Center[facility] Trough Level - Draw no more than 60 minutes before the 1100 dose.2021-01-29 05:02:45* Test Item Value Reference Range Interpretation Comme nts VANCO TROUGH (test code = 7939308711) 7.6 ug/mL 10.0-20.0 L ASHLEE (test code = ASHLEE) Toxic Range: ?>20 ug/mL 15-20 ug/mL is recommended for severe infection or when Vancomycin AURA is greater than or equal to 2. Lab Interpretation (test code = 39304-6) Abnormal [facility] Metabolic Panel (NA, K, CL, CO2, GLUCOSE, BUN, CREATININE, CA)2021-01-28 11:50:40* Test Item Value Reference Range Interpretation Comme nts NA (test code = 5697756554) 138 mmol/L 135-145 K (test code = 9762238843) 4.2 mmol/L 3.5-5.0 CL (test code = 3606840682) 104 mmol/L 98-108 CO2 TOTAL (test code = 3472913548) 25 mmol/L 23-31 AGAP (test code = 8302403642) 2-16 BUN (test code = 7071389734) 7 mg/dL 7-23 GLUCOSE (test code = 9729920671) 147 mg/dL 70-110 H CREATININE (test code = 4413198286) 0.44 mg/dL 0.50-1.04 L CALCIUM (test code = 7403916570) 9.0 mg/dL 8.6-10.6 eGFR (test code = 5032942986) mL/min/1.73m2 ASHLEE (test code = ASHLEE) Association [...] imaging tests). Lab Interpretation (test code = 19536-8) Abnormal [facility] Metabolic Panel (NA, K, CL, CO2, GLUCOSE, BUN, CREATININE, CA)2021-01-28 11:50:40* Test Item Value Reference Range Interpretation Comme nts NA (test code = 3328691219) 138 mmol/L 135-145 K (test code = 1179102878) 4.2 mmol/L 3.5-5.0 CL (test code = 0551430253) 104 mmol/L 98-108 CO2 TOTAL (test code = 3150791832) 25 mmol/L 23-31 AGAP (test code = 9374803476) 2-16 BUN (test code = 8580122256) 7 mg/dL 7-23 GLUCOSE (test code = 0224144460) 147 mg/dL 70-110 H CREATININE (test code = 4515049372) 0.44 mg/dL 0.50-1.04 L CALCIUM (test code = 0593618581) 9.0 mg/dL 8.6-10.6 eGFR (test code = 0882658913) mL/min/1.73m2 ASHLEE (test code = ASHLEE) Association [...] imaging tests). Lab Interpretation (test code = 48365-6) Abnormal [facility] with Twsvunotkgie5481-41-84 11:08:37* Test Item Value Reference Range Interpretation Comme nts WBC (test code = 6690-2) See_Comment H [Automated Cervalis] The system which generated this result transmitted reference range: 4.30 - 11.10 10*3/?L. The reference range was not used to interpret this result as normal/abnormal. RBC (test code = 789-8) See_Comment L [Automated Cervalis] The system which generated this result transmitted [...] g/dL 31.6-35.1 L RDW-SD (test code = 44127-8) 41.9 fL 39.0-49.9 RDW-CV (test code = 788-0) 13.6 % 12.0-15.5 PLT (test code = 777-3) See_Comment H [Automated messa ge] The system which generated this result transmitted reference range: 166 - 358 10*3/?L. The reference range was not used to interpret this result as normal/abnormal. MPV (test code = 69070-0) 10.6 fL 9.5-12.9 NRBC/100 WBC (test code = 9477860968) See_Comment [Automated me ssage] The system which generated this result transmitted reference range: 0.0 - 10.0 /100 WBCs. The reference range was not used to interpret this result as normal/abnormal. NRBC x10^3 (test code = 2334366803) <0.01 See_Comment [Automated messa ge] The system which generated this result transmitted reference range: 10*3/?L. The reference range was not used to interpret this result as normal/abnormal. GRAN MAT (NEUT) % (test code = 770-8) 87.6 % IMM GRAN % (test code = 8761635982) 0.40 % LYMPH % (test code = 736-9) 8.8 % MONO % (test code = 5905-5) 2.8 % EOS % (test code = 713-8) 0.1 % BASO % (test code = 706-2) 0.3 % GRAN MAT x10^3(ANC) (test code = 5879164369) 9.81 10*3/uL 1.88-7.09 H IMM GRAN x10^3 (test code = 4745795064) 0.05 10*3/uL 0.00-0.06 LYMPH x10^3 (test code = 731-0) 0.98 10*3/uL 1.32-3.29 L MONO x10^3 (test code = 742-7) 0.31 10*3/uL 0.33-0.92 L EOS x10^3 (test code = 711-2) <0.03 0.03-0.39 L BASO x10^3 (test code = 704-7) 0.03 10*3/uL 0.01-0.07 Lab Interpretation (test code = 30667-4) Abnormal [facility] with Oovafwicbydp0216-36-32 11:08:37* Test Item Value Reference Range Interpretation [...] g/dL 31.6-35.1 L RDW-SD (test code = 45027-4) 41.9 fL 39.0-49.9 RDW-CV (test code = 788-0) 13.6 % 12.0-15.5 PLT (test code = 777-3) See_Comment H [Automated messa ge] The system which generated this result transmitted reference range: 166 - 358 10*3/?L. The reference range was not used to interpret this result as normal/abnormal. MPV (test code = 04859-4) 10.6 fL 9.5-12.9 NRBC/100 WBC (test code = 2420569855) See_Comment [Automated me ssage] The system which generated this result transmitted reference range: 0.0 - 10.0 /100 WBCs. The reference range was not used to interpret this result as normal/abnormal. NRBC x10^3 (test code = 7001146137) <0.01 See_Comment [Automated messa ge] The system which generated this result transmitted reference range: 10*3/?L. The reference range was not used to interpret this result as normal/abnormal. GRAN MAT (NEUT) % (test code = 770-8) 87.6 % IMM GRAN % (test code = 5707268185) 0.40 % LYMPH % (test code = 736-9) 8.8 % MONO % (test code = 5905-5) 2.8 % EOS % (test code = 713-8) 0.1 % BASO % (test code = 706-2) 0.3 % GRAN MAT x10^3(ANC) (test code = 7626271448) 9.81 10*3/uL 1.88-7.09 H IMM GRAN x10^3 (test code = 3780664671) 0.05 10*3/uL 0.00-0.06 LYMPH x10^3 (test code = 731-0) 0.98 10*3/uL 1.32-3.29 L MONO x10^3 (test code = 742-7) 0.31 10*3/uL 0.33-0.92 L EOS x10^3 (test code = 711-2) <0.03 0.03-0.39 L BASO x10^3 (test code = 704-7) 0.03 10*3/uL 0.01-0.07 Lab Interpretation (test code = 04848-2) [facility] 21:23:47Gian Negrete CRNA ? ? 01/27/2021 ?4:24 PMIntubationUrgency: elective Airway not difficult General Information and Staff Patient location during procedure: ORResident/VETERINARY ANATOMIST: Gian Negrete CRNAPerformed:resident/VETERINARY ANATOMIST Indications and Patient ConditionIndications for airway management: anesthesiaSpontaneous Ventilation: absentSedation level: deepPreoxygenated: yesPatient position: sniffingMILS maintained throughoutMask difficulty assessment: 0 - not attempted Final Airway DetailsFinal airway type: supraglottic airway Successful airway: Supraglottic airway: igel.Size 3 Number of attempts at approach: 1 Additional CommentsAirway dry intactUnSaint Camillus Medical CenterCT PELVIS W CONTRAST 2021-01-27 12:56:13A 6 cm right subcutaneous gluteal collection with layering fat, mayrepresent seroma or hematoma. However superimposed infection cannot beruled out. Clinical correlation is recommended. Preliminary Report Dictated by Resident: Latasha Thompsonumar ?MD. Cristiane, have reviewed this study and agree with theabove report.EXAM: CT PELVIS WITH CONTRAST [place]: [place] that it wasfeeling fine up [...] abutting the mid right gluteus prashant muscle. [facility], Radiant Results Inft User - 01/27/2021 7:57 AM CDT EXAM: CT PELVIS WITH CONTRASTHISTORY: [place] 12/23/20 and that it wasfeeling fine [...] reviewed this study and agree with theabove report.[facility] CenterCT [facility]VIS W [id number] 12:56:13A 6 cm right subcutaneous gluteal collection with layering fat, mayrepresent seroma or hematoma. However superimposed infection cannot beruled out. Clinical correlation is recommended. Preliminary Report Dictated by Resident: Cadence Thompson MD., have reviewed this study and agree with theabove report.EXAM: CT PELVIS WITH CONTRAST HISTORY: had a butt-lift surgery in [facility] 12/23/20 and that it wasfeeling fine up [...] WITH CONTRASTHISTORY: [place] surgery in [place] 12/23/20 and that it wasfeeling fine [...] reviewed this study and agree with theabove report.[facility] CenterHEPATIC FUNCTION PANEL (12382) (ALB,T.PRO,BILI T,BU/BC,ALT,AST,ALK PHOS)2021-01-27 06:43:32* Test Item Value Reference Range Interpretation Comme nts TOTAL BILI (test code = 5314125213) 0.3 mg/dL 0.1-1.1 BILI UNCON (test code = 0698062131) 0.1 mg/dL 0.1-1.1 BILI CONJ (test code = 1726283859) 0.0 mg/dL 0.0-0.3 T PROTEIN (test code = 0162222645) 7.0 g/dL 6.3-8.2 ALBUMIN (test code = 2788633674) 3.8 g/dL 3.5-5.0 ALK PHOS (test code = 2252959755) 114 U/L 34-122 ALTv (test code = 1742-6) 16 U/L 5-35 AST(SGOT) (test code = 3212779907) 77 U/L 13-40 H Lab Interpretation (test cod e = 11529-9) Abnormal [facility] CenterHEPAT[facility] FUNCTION PANEL (02264) (ALB,T.PRO,BILI T,BU/BC,ALT,AST,ALK PHOS)2021-01-27 06:43:32* Test Item Value Reference Range Interpretation Comme nts TOTAL BILI (test code = 3324660443) 0.3 mg/dL 0.1-1.1 BILI UNCON (test code = 8773196272) 0.1 mg/dL 0.1-1.1 BILI CONJ (test code = 4571299446) 0.0 mg/dL 0.0-0.3 T PROTEIN (test code = 1848363259) 7.0 g/dL 6.3-8.2 ALBUMIN (test code = 4444388882) 3.8 g/dL 3.5-5.0 ALK PHOS (test code = 2001418074) 114 U/L 34-122 ALTv (test code = 1742-6) 16 U/L 5-35 AST(SGOT) (test code = 7353679950) 77 U/L 13-40 H Lab Interpretation (test cod e = 35250-9) [facility]normal [facility] CenterXR [facility] 1 [id number] 06:12:38No acute cardiopulmonary process. RL: [id number]: [id number] Patient name: FLORES JACOBOUIALEXANDERChikaDOB: 1990 30 years EXAMINATION: XR CHEST 1 [...] acute osseous abnormality.IMPRESSIONNo acute cardiopulmonary process.RL: 8722AFC: [id number] signed by Maxime Bolaños at 01/27/2021 1:12 [facility] [id number] 06:12:38No acute cardiopulmonary process. RL: 8722AFC: [id number] Patient name: FLORES GREGORY: 1990 30 years [...] acute osseous abnormality.IMPRESSIONNo acute cardiopulmonary process.RL: 8722AFC: [id number] signed by Maxime Bolaños at 01/27/2021 1:12 AMHendrick Medical CenterLactic Acid Whole Kimro2795-34-64 05:56:59* Test Item Value Reference Range Interpretation Comme nts LACTIC ACID (test code = 5788162272) 1.65 mmol/L 0.50-2.20 Lab Interpretation (test cod e = 17127-9) Normal [facility] CenterLactic Acid Whole Qtjxb3153-66-27 05:56:59* Test Item Value Reference Range Interpretation Comme nts LACTIC ACID (test code = 4919941117) 1.65 mmol/L 0.50-2.20 Lab Interpretation (test cod e = 55093-7) Normal [facility] CenterCOVID-19 (ID NOW RAPID TESTING)2021-01-27 04:56:37* Test Item Value Reference Range Interpretation Comme nts SARS-CoV-2 Rapid ID NOW (test code = 15391-3) Positive Not Detected A ASHLEE (test code = ASHLEE) ID NOW COVID-19 As say is an isothermal nucleic acid amplification test intended for the qualitative detection of nucleic acid from SARS-CoV-2 viral RNA in nasopharyngeal (PIE CHEF) specimens. It is used under Emergency Use [...] clinically indicated. Lab Interpretation (test code = 69839-7) [facility]2021-01-27 04:56:37* Test Item Value Reference Range Interpretation Comme nts SARS-CoV-2 Rapid ID NOW (test code = 80216-5) Positive Not Detected A ASHLEE (test code = ASHLEE) ID NOW COVID-19 As say is an isothermal nucleic acid amplification test intended for the qualitative detection of nucleic acid from SARS-CoV-2 viral RNA in nasopharyngeal (PIE CHEF) specimens. It is used under Emergency Use [...] clinically indicated. Lab Interpretation (test code = 53350-8) Abnormal [facility] METABOLIC PANEL (NA, K, CL, CO2, GLUCOSE, BUN, CREATININE, CA)2021-01-27 02:53:47* Test Item Value Reference Range Interpretation Comme nts NA (test code = 7378269421) 140 mmol/L 135-145 K (test code = 7805680141) 3.6 mmol/L 3.5-5.0 CL (test code = 1479246201) 101 mmol/L 98-108 CO2 TOTAL (test code = 1621902865) 31 mmol/L 23-31 AGAP (test code = 0564285669) 2-16 BUN (test code = 6899018603) 6 mg/dL 7-23 L GLUCOSE (test code = 7447214684) 130 mg/dL 70-110 H CREATININE (test code = 8107482276) 0.49 mg/dL 0.50-1.04 L CALCIUM (test code = 7857729360) 9.4 mg/dL 8.6-10.6 eGFR (test code = 2749004999) mL/min/1.73m2 ASHLEE (test code = ASHLEE) Association [...] imaging tests). Lab Interpretation (test code = 94148-1) [facility] (NA, K, CL, CO2, GLUCOSE, BUN, CREATININE, CA)2021-01-27 02:53:47* Test Item Value Reference Range Interpretation Comme nts NA (test code = 5170266430) 140 mmol/L 135-145 K (test code = 1546503750) 3.6 mmol/L 3.5-5.0 CL (test code = 3566440077) 101 mmol/L 98-108 CO2 TOTAL (test code = 3907312833) 31 mmol/L 23-31 AGAP (test code = 5920838437) 2-16 BUN (test code = 8928596104) 6 mg/dL 7-23 L GLUCOSE (test code = 0676154965) 130 mg/dL 70-110 H CREATININE (test code = 4127730459) 0.49 mg/dL 0.50-1.04 L CALCIUM (test code = 6457961189) 9.4 mg/dL 8.6-10.6 eGFR (test code = 3161737172) mL/min/1.73m2 ASHLEE (test code = ASHLEE) Association [...] imaging tests). Lab Interpretation (test code = 34057-1) Abnormal [facility] WITH [id number] 02:42:45* Test Item Value Reference Range Interpretation Comme nts WBC (test code = 6690-2) See_Comment [Granify] The system which generated this result transmitted reference range: 4.30 - 11.10 10*3/?L. The reference range was not used to interpret this result as normal/abnormal. RBC (test code = 789-8) See_Comment L [Granify] The system which generated this result transmitted [...] g/dL 31.6-35.1 L RDW-SD (test code = 25803-7) 43.4 fL 39.0-49.9 RDW-CV (test code = 788-0) 14.1 % 12.0-15.5 PLT (test code = 777-3) See_Comment [Automated messa ge] The system which generated this result transmitted reference range: 166 - 358 10*3/?L. The reference range was not used to interpret this result as normal/abnormal. MPV (test code = 40681-7) 10.8 fL 9.5-12.9 NRBC/100 WBC (test code = 1356891717) See_Comment [Automated Phytel ssage] The system which generated this result transmitted reference range: 0.0 - 10.0 /100 WBCs. The reference range was not used to interpret this result as normal/abnormal. NRBC x10^3 (test code = 9153495536) <0.01 See_Comment [Automated messa ge] The system which generated this result transmitted reference range: 10*3/?L. The reference range was not used to interpret this result as normal/abnormal. GRAN MAT (NEUT) % (test code = 770-8) 70.5 % IMM GRAN % (test code = 0638260043) 0.60 % LYMPH % (test code = 736-9) 19.5 % MONO % (test code = 5905-5) 5.6 % EOS % (test code = 713-8) 3.4 % BASO % (test code = 706-2) 0.4 % GRAN MAT x10^3(ANC) (test code = 6797004422) 7.35 10*3/uL 1.88-7.09 H IMM GRAN x10^3 (test code = 6865090677) 0.06 10*3/uL 0.00-0.06 LYMPH x10^3 (test code = 731-0) 2.03 10*3/uL 1.32-3.29 MONO x10^3 (test code = 742-7) 0.58 10*3/uL 0.33-0.92 EOS x10^3 (test code = 711-2) 0.35 10*3/uL 0.03-0.39 BASO x10^3 (test code = 704-7) 0.04 10*3/uL 0.01-0.07 Lab Interpretation (test code = 79271-1) Abnormal [facility] WITH [id number] 02:42:45* Test Item Value Reference Range Interpretation [...] g/dL 31.6-35.1 L RDW-SD (test code = 26603-1) 43.4 fL 39.0-49.9 RDW-CV (test code = 788-0) 14.1 % 12.0-15.5 PLT (test code = 777-3) See_Comment [Automated messa ge] The system which generated this result transmitted reference range: 166 - 358 10*3/?L. The reference range was not used to interpret this result as normal/abnormal. MPV (test code = 89672-9) 10.8 fL 9.5-12.9 NRBC/100 WBC (test code = 7450004462) See_Comment [Automated Phytel ssage] The system which generated this result transmitted reference range: 0.0 - 10.0 /100 WBCs. The reference range was not used to interpret this result as normal/abnormal. NRBC x10^3 (test code = 8974004092) <0.01 See_Comment [Automated messa ge] The system which generated this result transmitted reference range: 10*3/?L. The reference range was not used to interpret this result as normal/abnormal. GRAN MAT (NEUT) % (test code = 770-8) 70.5 % IMM GRAN % (test code = 5581459456) 0.60 % LYMPH % (test code = 736-9) 19.5 % MONO % (test code = 5905-5) 5.6 % EOS % (test code = 713-8) 3.4 % BASO % (test code = 706-2) 0.4 % GRAN MAT x10^3(ANC) (test code = 0802326391) 7.35 10*3/uL 1.88-7.09 H IMM GRAN x10^3 (test code = 5435827747) 0.06 10*3/uL 0.00-0.06 LYMPH x10^3 (test code = 731-0) 2.03 10*3/uL 1.32-3.29 MONO x10^3 (test code = 742-7) 0.58 10*3/uL 0.33-0.92 EOS x10^3 (test code = 711-2) 0.35 10*3/uL 0.03-0.39 BASO x10^3 (test code = 704-7) 0.04 10*3/uL 0.01-0.07 Lab Interpretation (test code = 23548-8) Abnormal [facility] [id number] 02:30:00* Test Item Value Reference Range Interpretation Comme nts POCT PREG (test code = 1605) negative On board controls acceptable with C Line (test code = 3574) present POCT PREG LOT # (test code = 3575) [id number] POCT PREG TEST DATE ( test code = 357) 07/27/2022 Lab Interpretation (test cod e = 87949-2) Normal [facility] [id number] 02:30:00* Test Item Value Reference Range Interpretation Comme nts POCT PREG (test code = 1605) negative On board controls acceptable with C Line (test code = 3574) present POCT PREG LOT # (test code = 3575) [id number] POCT PREG TEST DATE ( test code = 3576) 07/27/2022 Lab Interpretation (test cod e = 30524-4) Normal [facility] CenterLawiic Acid Whole Chuiw9197-39-98 02:23:17* Test Item Value Reference Range Interpretation Comme nts LACTIC ACID (test code = 6259419370) 3.15 mmol/L 0.50-2.20 H Lab Interpretation (test cod e = 28156-3) Abnormal [facility] CenterLawiic Acid Whole Aeiob6221-56-26 02:23:17* Test Item Value Reference Range Interpretation Comme nts LACTIC ACID (test code = 2083712337) 3.15 mmol/L 0.50-2.20 H Lab Interpretation (test cod e = 86659-9) [facility]normal [facility] CenterPOCT ECIM3600-73-83 23:07:00* Test Item Value Reference Range Interpretation Comme nts POCT PREG (test code = 1605) Negative On board controls acceptable with C Line (test code = 3574) Yes POCT PREG LOT # (test code = 3575) POCT PREG TEST DATE ( test code = 3576) [facility]
[2023-12-10] MEDS ORDERED: METHYLPREDNISOLONE 125 MG INJ ONE (22:51)
[2023-12-10 23:30] LABS: SARS-CoV-2 Antigen CONTROL BLUE LINE VIS/BG OK; SARS-CoV-2 Antigen Rapid Res Negative (Negative)
--- NOTE | 2023-12-10 23:38 | ER ---
Nurse's Notes [facility] Name: Erika Conde Age: 33 yrs Sex: Female : 1990 Arrival Date: 12/10/2023 Time: 22:33 Bed 17 Private MD: Diagnosis: Asthma exacerbation Presentation: 12/09 22:40 Chief complaint: Patient states: I am having an asthma attack that started 2 hours ago. jb4 Coronavirus screen: At this time, the client does not indicate any symptoms associated with coronavirus-19. Ebola Screen: No symptoms or risks identified at this time. Initial Sepsis Screen: Does the patient meet any 2 criteria? No. Patient's initial sepsis screen is negative. Does the patient have a suspected source of infection? No. Patient's initial sepsis screen is negative. Risk Assessment: Do you want to hurt yourself or someone else? Patient reports no desire to harm self or others. Onset of symptoms was December 10, 2023. Transition of care: patient was not received from another setting of care. 22:40 Method Of Arrival: Ambulatory jb4 22:40 Acuity: GERHARD 3 jb4 Triage Assessment: 22:43 General: Appears distressed, uncomfortable, Behavior is calm, cooperative. Pain: Denies jb4 pain. Neuro: Level of Consciousness is awake, alert, obeys commands, Oriented to person, place, time, situation. Cardiovascular: Patient's skin is warm and dry. Respiratory: Airway is patent Respiratory effort is even, labored, Respiratory pattern is regular, symmetrical. Derm: Skin is intact, Skin is pink, warm \T\ dry. 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 - Infectious Disease History:: Denies. - Social history:: Smoking status: Patient denies any tobacco usage or history of. Screenin:49 [facility] ED Fall Risk Assessment (Adult) History of falling in the last 3 months, pf1 including since admission No falls in past 3 months (0 pts) Confusion or Disorientation No (0 pts) Intoxicated or Sedated No (0 pts) Impaired Gait No (0 pts) Mobility Assist Device Used No (0 pt) Altered Elimination No (0 pt) Score/Fall Risk Level 0 - 2 = Low Risk Oriented to surroundings, Maintained a safe environment, Educated pt \T\ family on fall prevention, incl call for assistance when getting out of bed, Assessed \T\ reinforced patient's understanding of fall precautions, Provided non-skid footwear, Hourly rounding (assess needs \T\ fall precautionary measures) done, Used ambulatory aids as needed (educated on \T\ assisted with), Used gait belt as appropriate. Abuse screen: Denies threats or abuse. Nutritional screening: No deficits noted. Tuberculosis screening: No symptoms or risk factors identified. Assessment: 22:40 General: Appears uncomfortable, well groomed, well developed, Behavior is cooperative, pf1 appropriate for age, quiet. 22:40 Pain: Denies pain. Neuro: No deficits noted. Level of Consciousness is awake, alert, pf1 obeys commands, Oriented to person, place, time, situation. Cardiovascular: No deficits noted. Capillary refill < 3 seconds Patient's skin is warm and dry. Respiratory: Reports shortness of breath cough that is Airway is patent Respiratory effort is even, unlabored, Respiratory pattern is symmetrical, tachypnea. GI: No deficits noted. No signs and/or symptoms were reported involving the gastrointestinal system. GI: Abdomen is round non-distended. : Reports currently 18 weeks . EENT: Reports nasal discharge. 23:40 Reassessment: patient pending discharge after completion of medication. pf1 23:40 Reassessment: Patient appears in no apparent distress at this time. Patient and/or pf1 family updated on plan of care and expected duration. Pain level reassessed. Patient is alert, oriented x 3, equal unlabored respirations, skin warm/dry/pink. Patient states feeling better. Patient states symptoms have improved. Vital Signs: 22:40 BP 139 / 87; Pulse 111; Resp 20; Pulse Ox 100% on R/A; Weight 78.93 kg; Height 5 ft. 5 jb4 in. ; 23:19 BP 108 / 60; Pulse 85; Resp 20; Pulse Ox 99% on R/A; Pain 0/10; pf1 23:56 BP 109 / 76; Pulse 79; Resp 16; Temp 98; Pulse Ox 100% on R/A; pf1 22:40 Body Mass Index 28.95 (78.93 kg, 165.1 cm) jb4 23:19 Pain Scale: Adult pf1 ED Course: 22:36 Patient arrived in ED. im 22:37 Harsha Craft MD is Attending Physician. sp3 22:42 Triage completed. jb4 22:43 Arm band placed on right wrist. jb4 22:45 Door closed. Noise minimized. Moved to private room. Warm blanket given. pf1 22:45 Patient has correct armband on for positive identification. Placed in gown. Bed in low pf1 position. Call light in reach. Side rails up X 1. 22:49 No provider procedures requiring assistance completed. Inserted saline lock: 22 gauge pf1 in right wrist, using aseptic technique. 23:10 COVID swab sent to lab. flu swab sent to lab. pf1 23:12 Michaela Eller, [place] is Primary Nurse. pf1 23:12 SARS RAPID Sent. pf1 23:12 Flu Sent. pf1 23:55 IV discontinued, intact, bleeding controlled, No redness/swelling at site. Pressure pf1 dressing applied. 23:58 Provided Education on: follow up and prescription. pf1 Administered Medications: 22:43 Drug: DuoNeb Nebulize (3:1) (2.5 mg - 0.5 mg) 3 ml Nebulizer once Route: Nebulizer; pf1 23:13 Follow up: Response: No adverse reaction; Marked relief of symptoms pf1 23:40 Follow up: Response: No adverse reaction; Marked relief of symptoms pf1 22:53 Drug: MethylPrednisoLONE IVP 125 mg IVP once Route: IVP; Site: right wrist; pf1 23:20 Follow up: Response: No adverse reaction; Marked relief of symptoms pf1 23:35 Drug: DuoNeb Nebulize (3:1) (2.5 mg - 0.5 mg) 3 ml Nebulizer once Route: Nebulizer; pf1 23:55 Follow up: Response: No adverse reaction; Marked relief of symptoms pf1 Medication: 23:58 VIS not applicable for this client. pf1 Outcome: 23:37 Discharge ordered by . sp3 23:58 Discharged to home ambulatory, with family, pf1 23:58 Condition: improved 23:58 Discharge instructions given to patient, family, Instructed on discharge instructions, follow up and referral plans. Demonstrated understanding of instructions, follow-up care, medications, Prescriptions given X 1, 23:58 Patient left the ED. pf1 Signatures: Wally Carter RN RN jb4 Harsha Craft MD MD sp3 Michaela Eller RN RN pf1 Jayda Salcedo
--- NOTE | 2023-12-10 23:38 | EDPHYS ---
Physician Documentation [facility] Name: Erika Conde Age: 33 yrs Sex: Female : 1990 Arrival Date: 12/10/2023 Time: 22:33 Bed 17 Private MD: ED Physician Hasrha Craft HPI: 12/09 22:44 This 33 yrs old Female presents to ER via Ambulatory with complaints of Asthma sp3 Exacerbation, 14 weeks . 22:44 33-year-old female who is 18 weeks now presents to the ED with chief complaint sp3 asthma exacerbation. Patient states her symptoms started earlier today. 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 is thus far uncomplicated.. [employer]PER[employer]: 22:43 Verified jb4 Historical: - Allergies: 22:43 No Known Allergies; jb4 - PMHx: 22:43 Asthma; jb4 - PSHx: 22:43 None; jb4 - Immunization history:: Adult Immunizations up to date. - Infectious Disease History:: Denies. - Social history:: Smoking status: Patient denies any tobacco usage or history of. ROS: 22:44 Constitutional: Negative for fever, chills, and weight loss, Eyes: Negative for injury, sp3 pain, redness, and discharge, ENT: Negative for injury, pain, and discharge, Neck: Negative for injury, pain, and swelling, Cardiovascular: Negative for chest pain, palpitations, and edema, Abdomen/GI: Negative for abdominal pain, nausea, vomiting, diarrhea, and constipation, Back: Negative for injury and pain, MS/Extremity: Negative for injury and deformity, Skin: Negative for injury, rash, and discoloration, Neuro: Negative for headache, weakness, numbness, tingling, and seizure, Psych: Negative for depression, anxiety, suicide ideation, homicidal ideation, and hallucinations, Allergy/Immunology: Negative for hives, rash, and allergies, Endocrine: Negative for neck swelling, polydipsia, polyuria, polyphagia, and marked weight changes, 22:44 All other systems are negative, Exam: 22:44 Constitutional: This is a well developed, well nourished patient who is awake, alert, sp3 and in no acute distress. Head/Face: Normocephalic, atraumatic. Eyes: Pupils equal round and reactive to light, extra-ocular motions intact. Lids and lashes normal. Conjunctiva and sclera are non-icteric and not injected. Cornea within normal limits. Periorbital areas with no swelling, redness, or edema. ENT: Nares patent. No nasal discharge, no septal abnormalities noted. External auditory canals are clear. Oropharynx with no redness, swelling, or masses, exudates, or evidence of obstruction, uvula midline. Mucous membranes moist. Neck: Trachea midline, no thyromegaly or masses palpated, and no cervical lymphadenopathy. Supple, full range of motion without nuchal rigidity, or vertebral point tenderness. No Meningismus. Chest/axilla: Normal chest wall appearance and motion. Nontender with no deformity. No lesions are appreciated. Abdomen/GI: Soft, non-tender, with normal bowel sounds. No distension or tympany. No guarding or rebound. No evidence of tenderness throughout. Back: No spinal tenderness. No costovertebral tenderness. Full range of motion. Skin: Warm, dry with normal turgor. Normal color with no rashes, no lesions, and no evidence of cellulitis. MS/ Extremity: Pulses equal, no cyanosis. Neurovascular intact. Full, normal range of motion. Neuro: Awake and alert, GCS 15, oriented to person, place, time, and situation. Cranial nerves II-XII grossly intact. Motor strength 5/5 in all extremities. Sensory grossly intact. Cerebellar exam normal. Normal gait. Psych: Awake, alert, with orientation to person, place and time. Behavior, mood, and affect are within normal limits. 22:44 Respiratory: Patient with inspiratory and expiratory wheezing without accessory muscle use or significant respiratory distress. Active dry cough noted as well. Heart rate 100-1 05., Vital Signs: 22:40 BP 139 / 87; Pulse 111; Resp 20; Pulse Ox 100% on R/A; Weight 78.93 kg; Height 5 ft. 5 jb4 in. ; 23:19 BP 108 / 60; Pulse 85; Resp 20; Pulse Ox 99% on R/A; Pain 0/10; pf1 23:56 BP 109 / 76; Pulse 79; Resp 16; Temp 98; Pulse Ox 100% on R/A; pf1 22:40 Body Mass Index 28.95 (78.93 kg, 165.1 cm) jb4 23:19 Pain Scale: Adult pf1 MDM: 22:39 Patient medically screened. sp3 22:45 Data reviewed: vital signs, nurses notes. ED course: 33-year-old female 18 weeks sp3 now with cough and wheezing. Differential diagnosis includes asthma exacerbation, bronchitis, or other viral syndrome. Will treat with duo nebulizer and Solu-Medrol IV as well as swabs to assess for COVID and influenza. 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 23:37 ED course: Patient much improved with only mild wheezing still present. Will give sp3 second DuoNeb and then safely discharge patient home with a prescription for Nebules since patient has a nebulizer machine at home.. 12/09 22:46 Order name: Flu; Complete Time: 23:33 sp3 12/09 22:46 Order name: SARS RAPID; Complete Time: 23:33 sp3 12/09 22:43 Order name: IV Saline Lock; Complete Time: 22:49 sp3 Administered Medications: 22:43 Drug: DuoNeb Nebulize (3:1) (2.5 mg - 0.5 mg) 3 ml Nebulizer once Route: Nebulizer; pf1 23:13 Follow up: Response: No adverse reaction; Marked relief of symptoms pf1 23:40 Follow up: Response: No adverse reaction; Marked relief of symptoms pf1 22:53 Drug: MethylPrednisoLONE IVP 125 mg IVP once Route: IVP; Site: right wrist; pf1 23:20 Follow up: Response: No adverse reaction; Marked relief of symptoms pf1 23:35 Drug: DuoNeb Nebulize (3:1) (2.5 mg - 0.5 mg) 3 ml Nebulizer once Route: Nebulizer; pf1 23:55 Follow up: Response: No adverse reaction; Marked relief of symptoms pf1 Disposition Summary: 12/10/23 23:37 Discharge Ordered Notes: Location: Home sp3 Condition: Stable sp3 Diagnosis - Asthma exacerbation sp3 Followup: sp3 - With: Private Physician - When: Upon discharge from the Emergency Department - Reason: Continuance of care Discharge Instructions: - Discharge Summary Sheet sp3 - Asthma Attack sp3 Forms: - Medication Reconciliation Form sp3 - Thank You Letter sp3 - Antibiotic Education sp3 - Prescription Opioid Use sp3 - Patient Portal Instructions sp3 - Leadership Thank You Letter sp3 Prescriptions: - Albuterol Sulfate 2.5 mg /3 mL (0.083 %) Inhalation Solution for Nebulization - inhale 1 unit NEBULIZATION route every 8 hours As needed; 1 Pack; Refills: 0, sp3 Product Selection Permitted Signatures: Dispatcher [employer]DA[employer] Wally Carter RN RN jb4 Harsha Craft MD MD sp3 Michaela Eller RN RN pf1
[2023-12-11 01:59] VITALS: O2SAT 100
[2023-12-11 02:39] VITALS: BP 109/76; TEMP 98
== END 2023-12-10 23:58 | disposition home or self-care (01) ==
LOC: ER 22:33
DX: O99.512 Diseases of the respiratory system complicating pregnancy, second trimester (principal); J45.901 Unspecified asthma with (acute) exacerbation; Z3A.18 18 weeks gestation of pregnancy
CPT/HCPCS: 36415; 87804; 87811; 94640; 96374; 99285; J2930; J7613; J7644

== ENCOUNTER 2024-01-05 15:47 | Emergency (ER) | payer MEDICAID, SELFPAY ==
--- OUTSIDE RECORDS SUMMARY | 2024-01-05 15:52 | XMS REPORT | Continuity of Care Document ---
Author Name Unknown Address [address] [facility] [address] [place] [address] [facility] thconnect Address [address] [facility] [address] [place] [address] Care Team Providers Care Stone Decorator Name Role Phone Bryce JJ Mary Lou Primary Care Physician [phone] JOANIE VILLALOBOS Attending Clinician Unavail able HANH MCDONALD Attending Clinician Unavailable [facility] Attending Clinician Unavailable Hanh Mcdonald MD Attending Clinician [phone] LAVON ROBB Attending Clinician Unavailable Lavon Robb MD Attending Clinician [phone] [facility] Attending Clinician Unavailable Wilfredo Joanie MENDIETA Attending Clinician + LEE ANN HUSSEIN Attending Clinician Unavailable Lee Ann Hussein MD Attending Clinician [phone] MISTY HOOKER Attending Clinician Unavailable Misty Tineo Attending Clinician [phone] WYATT HUGGINS Attending Clinician Unavailab OTILIA Ibrahim Attending Clinician Unavailable Otilia Ortiz Attending Clinician [phone] MARVA HOLCOMB Attending Clinician Unavailable Marva Holcomb MD Attending Clinician [phone] Eder MONTGOMERY, Elena Holm Attending Clinician [phone] Yaima Julio Attending Clinician [phone] Rosendo Vance MD Attending Clinician [phone] Mauro Pruitt MD Attending Clinician [phone] Visit, [facility] Nurse Attending Clinician Unava ilable Doctor Unassigned, Esko Attending Clinician U navailable LEE ANN HUSSEIN Admitting Clinician Unavailable MISTY HOOKER Admitting Clinician Unavailable OTILIA BRITTON Admitting Clinician Unavailable Madina CARD, Rosendo Admitting Clinician [phone] Payers Payer Name Policy Type Policy Number Effective Date Expirati on Date Source DEWAYNE MOM CHIP ROM[employer]O [employer] [id number] 2022 00:00:00 Problems Condition Name Condition Details Condition Category Status Onset Date Resolution Date Last Treatment Date Treating Clinician Comments Source Miscarriag e Miscarriag e Disease Active 09-26 00:00: 00 Overview: Formattin g of this note might be different from the original. Recent beta at [facility] Complete Complete Disease Active 09-26 00:00: 00 Overview: Formattin g of this note might be different from the original. Recent beta at [facility] Abnormal maternal glucose tolerance, antepartum Abnormal maternal glucose tolerance, antepartum Disease Active 09-23 00:00: 00 Overview: Formattin g of this note might be different from the original. Pending 3hr gtt [facility] Supervisio n of high-risk Supervisio n of high-risk Disease Active 09-21 00:00: 00 [facility] Vaginal bleeding during Vaginal bleeding during Disease Active 09-21 00:00: 00 [facility] Trichomona l vaginitis during Trichomona l vaginitis during Disease Active 09-21 00:00: 00 Overview: Formattin g of this note might be different from the original. Dx at the ED on meds, pending demi [facility] UTI in UTI in Disease Active 09-21 00:00: 00 Overview: Formattin g of this note might be different from the original. Dx at the ED on meds, pending demi [facility] Multiparit y Multiparit y Disease Active 09-21 00:00: 00 [facility] Cellulitis of right buttock Cellulitis of right buttock Disease Active 6- 00:00: 00 [facility] Obesity in Obesity in Disease Active 10-19 00:00: 00 [facility] Well woman exam Well woman exam Disease Active 10-19 00:00: 00 [facility] Contracept hermila management Contracept hermila management Disease Active 10-19 00:00: 00 [facility] Obesity (BMI 30-39.9) Obesity (BMI 30-39.9) Disease Active 10-19 00:00: 00 [facility] Contracept hermila management Contracept hermila management Disease Active 10-19 00:00: 00 [facility] Vaginal symptom Vaginal symptom Disease Active 1-15 00:00: 00 [facility] History of asthma History of asthma Disease Active 1-04 00:00: 00 [facility] Allergies, Adverse Reactions, Alerts Allergy Name Allergy Type Status Severity Reaction(s) Onset Date Inactive Date Treating Clinician Comments Source NO KNOWN ALLERGIE S Drug Class Active [facility] Social History Social Habit Start Date Stop Date Quantity Comments Source ASSERTION 2022-08-25 00:00:00 [facility] Alcohol intake 2022-10-13 00:00:00 2022-10-13 00:00:00 Current non-drinker of alcohol (finding) [facility] Exposure to SARS-CoV-2 (event) 2022-09-17 00:00:00 2022-09-27 08:53:00 Not sure [facility] Tobacco use and exposure 2022-09-21 00:00:00 2022-09-21 00:00:00 Smokeless tobacco non-user [facility] Sex Assigned At 1990 00:00:00 1990 00:00:00 [facility] Smoking Status Start Date Stop Date Source Never smoked tobacco [facility] Medications Ordered Medication Name Filled Medication Name Start Date Stop Date Current Medication? Ordering Clinician Indication Dosage Frequency Signature (SIG) Comments Components Source Qvar RediHaler 40 mcg/actuati on HFA breath activated aerosol 12-11 00:00: 00 Yes 1mcg/ac tuation Peter Lofton albuterol sulfate 2.5 mg/3 mL (0.083 %) solution for nebulizatio n 12-11 00:00: 00 Yes 1/3 mL (0.083 %) Peter Nick Lofton prednisone 20 mg tablet 12-11 00:00: 00 Yes 1mg Peter Nick Lofton benzonatate 100 mg capsule 12-11 00:00: 00 Yes 1mg Peter Nick Lofton albuterol sulfate 2.5 mg/3 mL (0.083 %) solution for nebulizatio n 12-09 00:00: 00 Yes 1/3 mL (0.083 %) Peter Lofton aspirin 81 mg tablet,preston yed release 10-30 00:00: 00 Yes 1mg Peter Lofton TAKE 1 TABLET BY MOUTH EVERY 8 HOURS 12-06 00:00: 00 12-13 00:00 :00 No Peter Nick Lofton TAKE 1 TABLET BY MOUTH TWICE DAILY AFTER A MEAL 12-06 00:00: 00 12-13 00:00 :00 No Peter Nick Lofton ibuprofen (IBU) tablet 800 mg 09-27 16:30: 00 09-27 15:49 :00 No [id number] 800mg [facility] ibuprofen 600 mg tablet 09-27 00:00: 00 Yes [id number] 600mg Take 1 tablet by mouth every 6 (six) hours as needed (alternate with tylenol for pain) for up to 20 doses. [facility] ALBUTEROL SULFATE INHALE 09-21 14:43: 24 09-21 00:00 :00 No 1{puff} Inhale 1 Puff every 8 (eight) hours as needed for Other (Wheezing) . [facility] metroNIDAZO LE 500 mg tablet 09-20 00:00: 00 Yes TAKE 4 TABLETS BY MOUTH ONCE DAILY NOW FOR 1 DOSE [facility] Nitrofurant oin&Nit. Macrocryst (MACROBID) 100 mg capsule 09-20 00:00: 00 Yes [id number] 100mg Take 1 capsule by mouth 2 (two) times daily. [facility] NaCl 0.9% (NS) bolus infusion 1,000 mL 11-09 23:45: 00 11-10 01:15 :00 No 1000mL at 999 mL/hr, 1,000 mL, IV Infusion, ONCE, 1 dose, On Mon11/09/21 at 1845, [facility] ketorolac (TORADOL) injection 30 mg 11-09 23:45: 00 11-09 23:36 :00 No 30mg 30 mg, Slow IV Push, ONCE, 1 dose, On Mon11/09/21 at 1845, [facility] ondansetron (ZOFRAN (PF)) injection 4 mg 11-09 23:45: 00 11-09 23:36 :00 No 4mg 4 mg, Slow IV Push, ONCE, 1 dose, On Mon11/09/21 at 1845, [facility] benzonatate 100 mg capsule 11-09 00:00: 00 Yes [id number] 100mg Take 1 capsule by mouth 3 (three) times daily as needed for Cough. [facility] ondansetron (ZOFRAN) 4 mg tablet 11-09 00:00: 00 Yes [id number] 4mg Take 1 tablet by mouth every 8 (eight) hours as needed for Nausea and Vomiting (N/V). [facility] predniSONE 20 mg tablet 11-09 00:00: 00 11-15 04:59 :00 No [id number] 40mg Take 2 tablets by mouth daily for 5 days. [facility] ipratropium -albuteroL (DUONEB) 0.5 mg-3 mg(2.5 mg base)/3 mL nebulizer solution 3 mL 2020-08 09:30: 00 08-06 08:37 :00 No 3mL 3 mL, Inhalation , ONCE, 1 dose, On Mon08/06/21 at 0330, Routine [facility] dexamethaso ne (DECADRON PHOSPHATE) injection 10 mg 2020-08 09:30: 00 08-06 08:27 :00 No 10mg 10 mg, Oral, ONCE, 1 dose, On Mon08/06/21 at 0330, STAT [facility] ipratropium -albuteroL (DUONEB) 0.5 mg-3 mg(2.5 mg base)/3 mL nebulizer solution 3 mL 2020-08 07:45: 00 08-06 06:51 :00 No 3mL 3 mL, Inhalation , ONCE, 1 dose, On Mon08/06/21 at 0145, Routine [facility] predniSONE 50 mg tablet 2020-08 00:00: 00 Yes [id number] 50mg Take 1 tablet by mouth daily. [facility] albuterol 90 mcg/actuati on inhaler 2020-08 00:00: 00 Yes [id number] 2{puff} Inhale 2 Puffs every 4 (four) hours as needed for Wheezing or Shortness of Breath. [facility] albuterol 2.5 mg /3 mL (0.083 %) nebulizer solution 2020-08 00:00: 00 09-21 00:00 :00 No [id number] 2.5mg Inhale 3 mL every 4 (four) hours. May also nebulize one extra every 6 hours. [facility] ALBUTEROL SULFATE INHALE 02-16 21:27: 26 Yes 1{puff} Inhale 1 Puff every 8 (eight) hours as needed for Other (Wheezing) . [facility] ALBUTEROL SULFATE INHALE 02-16 16:27: 26 Yes 1{puff} Inhale 1 Puff every 8 (eight) hours as needed for Other (Wheezing) . [facility] ALBUTEROL SULFATE INHALE 01-29 17:25: 36 Yes 1{puff} Inhale 1 Puff every 8 (eight) hours as needed for Other (Wheezing) . [facility] KCL (KLOR-CON M20) tablet 40 mEq 01-29 15:30: 00 01-29 16:35 :00 No 40meq 40 mEq, Oral, ONCE, 1 dose, Mon01/29/21 at 1030, Routine [facility] morpHINE injection 2 mg 01-29 05:30: 00 01-29 04:25 :00 No 2mg 2 mg, Slow IV Push, ONCE, 1 dose, Mon01/29/21 at 0030, Routine [facility] acidophilus 100 million cell tablet 01-29 00:00: 00 Yes [id number] 1g Take 1 tablet by mouth 2 (two) times daily. [facility] sulfamethox azole-trime thoprim (BACTRIM DS) 800-160 mg per tablet 01-29 00:00: 00 02-06 04:59 :00 No [id number] 1{tbl} Take 1 tablet by mouth 2 (two) times daily for 7 days. [facility] ALBUTEROL SULFATE INHALE 01-28 14:37: 52 Yes 1{puff} Inhale 1 Puff every 8 (eight) hours as needed for Other (Wheezing) . [facility] albuterol (PROVENTIL) 2.5 mg /3 mL (0.083 %) nebulizer solution 2.5 mg 01-28 14:37: 36 Yes 2.5mg 2.5 mg, Inhalation , Q6HPRN, Starting Poppy 01/28/21 at 0937, Until Discontinu ed, Shortness of Breath, Wheezing [facility] morpHINE injection 2 mg 01-28 13:17: 25 01-28 21:16 :25 No 2mg 2 mg, Slow IV Push, Q6HPRN, Starting Poppy 01/28/21 at 0817, Until Poppy 01/28/21 at 1616, Routine, Pain (scale 7-10) [facility] ketorolac (TORADOL) injection 30 mg 01-27 22:08: 51 01-27 22:09 :00 No 30mg 30 mg, Slow IV Push, PRN, 1 dose, Starting Mon01/27/21 at 1708, Until Mon01/27/21 at 1709, Routine, Pain (scale 4-6), PACU
[facility] member approving Restricted medication : MAURO PRUITT [facility] enoxaparin (LOVENOX) injection 40 mg 01-27 22:00: 00 Yes 40mg 40 mg, Subcutaneo us, DAILY, First dose on Mon01/27/21 at 1700, Until Discontinu ed, Routine [facility] morpHINE injection 2 mg 01-27 21:45: 35 01-27 22:22 :02 No 2mg 2 mg, Slow IV Push, Q5MIN PRN, 5 doses, Starting Mon01/27/21 at 1645, Until Mon01/27/21 at 1722, Routine, Pain (scale 4-6), PACU [facility] HYDROcodone -acetaminop hen (NORCO) 10-325 mg tablet 1 tablet 01-27 21:34: 03 Yes 1{tbl} 1 tablet, Oral, Q6HPRN, Starting Mon01/27/21 at 1634, Until Discontinu ed, Routine, Pain (scale 4-6) [facility] HYDROcodone -acetaminop hen (NORCO 5) 5-325 mg tablet 1 tablet 01-27 21:33: 48 Yes 1{tbl} 1 tablet, Oral, Q6HPRN, Starting Mon01/27/21 at 1633, Until Discontinu ed, Routine, Pain (scale 1-3) [facility] PHENYLephri ne 1000 mcg/10 mL in 0.9% NaCl syringe 01-27 21:16: 00 01-27 21:36 :50 No Slow IV Push, ONCE INTRA PROCEDURE, Starting Mon01/27/21 at 1616, Until Mon01/27/21 at 1636, Routine, [facility]-op [facility] ondansetron (ZOFRAN (PF)) injection 01-27 21:14: 00 01-27 21:36 :50 No Slow IV Push, ONCE INTRA PROCEDURE, Starting Mon01/27/21 at 1614, Until Mon01/27/21 at 1636, Routine, Intra-op [facility] dexamethaso ne (DECADRON PHOSPHATE) injection 01-27 21:12: 00 01-27 21:36 :50 No IV Push, ONCE INTRA PROCEDURE, Starting Mon01/27/21 at 1612, Until Mon01/27/21 at 1636, Routine, Intra-op [facility] lidocaine 1% (XYLOCAINE) 100 mg/10 mL (1 %) injection 01-27 21:07: 00 01-27 21:36 :50 No Intravenou s, ONCE INTRA PROCEDURE, Starting Mon01/27/21 at 1607, Until Mon01/27/21 at 1636, Routine[facility] 01-27 21:07: 00 01-27 21:36 :50 No Intravenou s, ONCE INTRA PROCEDURE, Starting Mon01/27/21 at 1607, Until Mon01/27/21 at 1636, Routine, Intra-op [facility] FENTanyl PF (SUBLIMAZE (PF)) injection 01-27 21:07: 00 01-27 21:36 :50 No Intravenou s, ONCE INTRA PROCEDURE, Starting Mon01/27/21 at 1607, Until Mon01/27/21 at 1636, Routine, Intra-op [facility] midazolam (VERSED) injection 01-27 20:57: 00 01-27 21:36 :50 No IV Push, ONCE INTRA PROCEDURE, Starting Mon01/27/21 at 1557, Until Mon01/27/21 at 1636, Routine, Intra-op [facility] lactated ringers IV infusion 01-27 20:57: 00 01-27 21:36 :50 No IV Infusion, CONTINUOUS PRN, Starting Mon01/27/21 at 1557, Until Mon01/27/21 at 1636, Routine, Intra-op [facility] vancomycin 1500 mg in NS 500 mL IV Piggyback RTU 1,500 mg 01-27 16:00: 00 Yes 1500mg 1,500 mg, IV Infusion, Q12H ABX, First dose on Mon01/27/21 at 1100, Until Discontinu ed
Reas on for Anti-Infec tive: Documented Infection< br>Documen mariah Infection Site: Skin / Soft Tissue
Duration of Therapy: 10 days [facility] piperacilli n-tazobacta m (ZOSYN) 3.375 g in NaCl 0.9% (NS) 100 mL MINI-BAG 01-27 13:00: 00 Yes 3.375g 3.375 g, IV Piggyback, Q6H ABX, First dose (after last reorder) on Mon01/27/21 at 0800, Until Discontinu ed, 100 mL
Reas on for Anti-Infec tive: Documented Infection< br>Documen mariah Infection Site: Skin / Soft Tissue
Duration of Therapy: Other (see Comments) [facility] NaCl 0.9% (NS) IV infusion 1,000 mL 01-27 11:45: 00 01-28 13:18 :05 No 1000mL at 125 mL/hr, IV Infusion, CONTINUOUS , Starting Mon01/27/21 at 0645, Until Poppy 01/28/21 at 0818, Routine [facility] NaCl 0.9% (NS) IV infusion 2,000 mL 01-27 07:15: 00 01-27 07:36 :00 No 2000mL at 125 mL/hr, IV Infusion, ONCE, 1 dose, Mon01/27/21 at 0215, Routine [facility] ondansetron (ZOFRAN (PF)) injection 4 mg 01-27 06:12: 31 Yes 4mg 4 mg, Slow IV Push, Q6HPRN, Starting Mon01/27/21 at 0112, Until Discontinu ed, Routine, Nausea and Vomiting (N/V) [facility] morpHINE injection 2 mg 01-27 06:12: 24 01-27 21:34 :15 No 2mg 2 mg, Slow IV Push, Q4HPRN, Starting Mon01/27/21 at 0112, Until Mon01/27/21 at 1634, Routine, Pain (scale 7-10) [facility] piperacilli n-tazobacta m (ZOSYN) 3.375 g in NaCl 0.9% (NS) 100 mL MINI-BAG 01-27 04:15: 00 01-27 03:40 :00 No 3.375g 3.375 g, IV Piggyback, ONCE, 1 dose, 01/26/21 at 2315, 100 mL
Reas on for Anti-Infec tive: Documented Infection< br>Documen mariah Infection Site: Skin / Soft Tissue
Duration of Therapy: Other (see Comments) [facility] vancomycin (VANCOCIN) 1,000 mg in NaCl 0.9% (NS) 250 mL VIAL-MATE IV piggyback 01-27 04:00: 00 01-27 04:57 :00 No 1000mg 1,000 mg, IV Piggyback, ONCE, 1 dose, 01/26/21 at 2300, 250 mL
Reas on for Anti-Infec tive: Documented Infection< br>Documen mariah Infection Site: Skin / Soft Tissue
Duration of Therapy: Other (see Comments) [facility] iopamidol (ISOVUE 370-500 mL) injection 120 mL 01-27 04:00: 00 01-27 02:50 :00 No [id number] 120mL 120 mL, Intravenou s, ONCE, 1 dose, 01/26/21 at 2300, Routine [facility] NaCl 0.9% (NS) bolus infusion 1,000 mL 01-27 03:45: 00 01-27 03:57 :00 No 1000mL at 999 mL/hr, 1,000 mL, IV Infusion, ONCE, 1 dose, 01/26/21 at 2245, STAT [facility] ondansetron (ZOFRAN (PF)) injection 4 mg 01-27 03:30: 00 01-27 02:19 :00 No 4mg 4 mg, Slow IV Push, ONCE, 1 dose, 01/26/21 at 2230, MICHAELA [facility] morpHINE injection 4 mg 01-27 03:30: 00 01-27 02:18 :00 No 4mg 4 mg, Slow IV Push, ONCE, 1 dose, 01/26/21 at 2230, STAT [facility] medroxyPROG ESTERone (DEPO-PROVE RA) injection 150 mg 10-19 18:00: 00 09-20 17:59 :00 No [id number] 150mg 150 mg, Intramuscu lar, [id number], 4 doses, First dose on Mon10/19/18 at 1200, Last dose on Mon06/28/19 at 1200, Routine [facility] albuterol 2.5 mg/0.5 mL nebulizer solution 10-25 00:00: 00 Yes 2.5mg Use 0.5 mL as directed every 6 (six) hours as needed for Wheezing. [facility] Vital Signs Vital Name Observation Time Observation Value Comments S ource Systolic blood pressure 2022-09-27 14:52:00 107 mm[Hg] [facility] Diastolic blood pressure 2022-09-27 14:52:00 78 mm[Hg] [facility] Heart rate 2022-09-27 14:52:00 66 /min [facility] Body temperature 2022-09-27 14:52:00 36.78 Brisa [facility] Respiratory rate 2022-09-27 14:52:00 18 /min [facility] Body height 2022-09-27 14:52:00 152.4 cm [facility] Body weight 2022-09-27 14:52:00 82.101 kg [facility] BMI 2022-09-27 14:52:00 35.35 kg/m2 [facility] Systolic blood pressure 2022-09-21 20:36:00 118 mm[Hg] [facility] Diastolic blood pressure 2022-09-21 20:36:00 78 mm[Hg] [facility] Heart rate 2022-09-21 20:36:00 104 /min Unive [facility] Body temperature 2022-09-21 20:36:00 36.61 Brisa [facility] Respiratory rate 2022-09-21 20:36:00 18 /min [facility] Body height 2022-09-21 20:36:00 152.4 cm [facility] Body weight 2022-09-21 20:36:00 82.725 kg [facility] BMI 2022-09-21 20:36:00 35.62 kg/m2 [facility] Systolic blood pressure 2022-09-20 22:20:00 124 mm[Hg] [facility] Diastolic blood pressure 2022-09-20 22:20:00 79 mm[Hg] [facility] Heart rate 2022-09-20 22:20:00 69 /min Unive [facility] Respiratory rate 2022-09-20 22:20:00 18 /min [facility] Oxygen saturation in Arterial blood by Pulse oximetry 2022-09-20 22:20:00 98 /min [facility] Body temperature 2022-09-20 14:24:00 36.72 Brisa [facility] Body height 2022-09-20 14:24:00 152.4 cm [facility] Body weight 2022-09-20 14:24:00 81.647 kg [facility] BMI 2022-09-20 14:24:00 35.15 kg/m2 [facility] Heart rate 2021-11-10 01:00:00 91 /min Unive [facility] Body temperature 2021-11-10 01:00:00 37.94 [facility] Oxygen saturation in Arterial blood by Pulse oximetry 2021-11-10 01:00:00 99 /min [facility] Systolic blood pressure 2021-11-10 00:31:00 104 mm[Hg] [facility] Diastolic blood pressure 2021-11-10 00:31:00 68 mm[Hg] [facility] Respiratory rate 2021-11-10 00:31:00 18 /min [facility] Body height 2021-11-09 22:23:00 157.5 cm [facility] Body weight 2021-11-09 22:23:00 72.576 kg [facility] BMI 2021-11-09 22:23:00 29.26 kg/m2 [facility] Systolic blood pressure 2021-08-06 10:41:00 116 mm[Hg] [facility] Diastolic blood pressure 2021-08-06 10:41:00 79 mm[Hg] [facility] Heart rate 2021-08-06 10:41:00 88 /min [facility] Respiratory rate 2021-08-06 10:41:00 22 /min [facility] Oxygen saturation in Arterial blood by Pulse oximetry 2021-08-06 10:41:00 97 /min [facility] Body temperature 2021-08-06 06:47:00 37.33 [facility] Body height 2021-08-06 06:47:00 149.9 cm [facility] Body weight 2021-08-06 06:47:00 83.915 kg [facility] BMI 2021-08-06 06:47:00 37.37 kg/m2 [facility] Systolic blood pressure 2021-02-16 21:26:00 125 mm[Hg] [facility] Diastolic blood pressure 2021-02-16 21:26:00 87 mm[Hg] [facility] Heart rate 2021-02-16 21:26:00 80 /min [facility] Body temperature 2021-02-16 21:26:00 36.33 [facility] Respiratory rate 2021-02-16 21:26:00 16 /min [facility] Body weight 2021-02-16 21:26:00 81.194 kg [facility] BMI 2021-02-16 21:26:00 36.09 kg/m2 [facility] Oxygen saturation in Arterial blood by Pulse oximetry 2021-02-16 21:26:00 99 /min [facility] Systolic blood pressure 2021-01-29 16:17:00 112 mm[Hg] [facility] Diastolic blood pressure 2021-01-29 16:17:00 79 mm[Hg] [facility] Body temperature 2021-01-29 16:17:00 36.72 Brisa [facility] Respiratory rate 2021-01-29 16:17:00 18 /min [facility] Oxygen saturation in Arterial blood by Pulse oximetry 2021-01-29 16:17:00 100 /min [facility] Heart rate 2021-01-29 14:00:00 77 /min Unive [facility] Body weight 2021-01-28 08:45:00 84.959 kg [facility] BMI 2021-01-28 08:45:00 37.76 kg/m2 [facility] Body height 2021-01-27 20:48:00 150 cm [facility] Body height 2021-01-27 20:48:00 150 cm [facility] Body weight 2021-01-27 20:48:00 86.2 kg [facility] BMI 2021-01-27 20:48:00 37.76 kg/m2 [facility] Systolic blood pressure 2021-01-27 20:05:00 108 mm[Hg] [facility] Diastolic blood pressure 2021-01-27 20:05:00 67 mm[Hg] [facility] Heart rate 2021-01-27 20:05:00 90 /min Unive [facility] Body temperature 2021-01-27 20:05:00 36.67 Brisa [facility] Respiratory rate 2021-01-27 20:05:00 20 /min [facility] Oxygen saturation in Arterial blood by Pulse oximetry 2021-01-27 20:05:00 100 /min [facility] Systolic blood pressure 2019-04-22 19:06:00 130 mm[Hg] [facility] Diastolic blood pressure 2019-04-22 19:06:00 82 mm[Hg] [facility] Heart rate 2019-04-22 19:06:00 84 /min [facility] Body temperature 2019-04-22 19:06:00 36 Brisa [facility] Respiratory rate 2019-04-22 19:06:00 16 /min [facility] Body height 2019-04-22 19:06:00 152.4 cm [facility] Body weight 2019-04-22 19:06:00 85.503 kg [facility] BMI 2019-04-22 19:06:00 36.81 kg/m2 [facility] BP Systolic 2023-12-12 17:12:00 117 mm[Hg] Step hen [facility] BP Diastolic 2023-12-12 17:12:00 74 mm[Hg] Sameer phen F [facility]olly Weight Measured 2023-12-12 17:12:00 183.40 pounds Peter F Rolly Height Measured 2023-12-12 17:12:00 61.00 inches [facility] Body Temperature 2023-12-12 17:12:00 98.10 degrees Peter F Rolly Heart Rate 2023-12-12 17:12:00 75.00 /min Aparna en F Rolly Respiratory Rate 2023-12-12 17:12:00 Peter F Rolly BP Systolic 2023-10-31 08:49:00 105 mm[Hg] Step hen F Rolly BP Diastolic 2023-10-31 08:49:00 72 mm[Hg] Sameer phen F Rolly Weight Measured 2023-10-31 08:49:00 174.80 pounds Peter F Rolly Height Measured 2023-10-31 08:49:00 61.00 inches Peter F Rolly Body Temperature 2023-10-31 08:49:00 98.30 degrees Peter F Rolly Heart Rate 2023-10-31 08:49:00 81.00 /min Aparna en F Rolly Respiratory Rate 2023-10-31 08:49:00 18.00 /min Peter F Rolly BP Systolic 2023-10-05 11:40:00 111 mm[Hg] Step hen F Rolly BP Diastolic 2023-10-05 11:40:00 67 mm[Hg] Sameer phen F Rolly Weight Measured 2023-10-05 11:40:00 169.90 pounds Peter F Rolly Height Measured 2023-10-05 11:40:00 61.00 inches Peter F Rolly Body Temperature 2023-10-05 11:40:00 98.30 degrees Peter F Rolly Heart Rate 2023-10-05 11:40:00 96.00 /min Aparna en F Rolly Respiratory Rate 2023-10-05 11:40:00 Peter F Rolly BP Systolic 2023-10-03 16:01:00 126 mm[Hg] Step hen F Rolly BP Diastolic 2023-10-03 16:01:00 65 mm[Hg] Sameer phen F Rolly Weight Measured 2023-10-03 16:01:00 173.00 pounds Peter F Rolly Height Measured 2023-10-03 16:01:00 61.00 inches Peter F Rolly Body Temperature 2023-10-03 16:01:00 98.10 degrees Peter F Rolly Heart Rate 2023-10-03 16:01:00 81.00 /min Aparna en F Rolly Respiratory Rate 2023-10-03 16:01:00 Peter F Rolly BP Systolic 2023-09-20 09:25:00 112 mm[Hg] Step hen F Rolly BP Diastolic 2023-09-20 09:25:00 60 mm[Hg] Sameer phen F Rolly Weight Measured 2023-09-20 09:25:00 169.60 pounds Peter F Rolly Height Measured 2023-09-20 09:25:00 61.00 inches Peter F Rolly Body Temperature 2023-09-20 09:25:00 98.30 degrees Peter F Rolly Heart Rate 2023-09-20 09:25:00 64.00 /min Aparna en F Rolly Respiratory Rate 2023-09-20 09:25:00 Peter F Rolly Procedures Procedure Date / Time Performed Performing Clinician Source POCT TEST 2022-09-27 15:38:00 Nayla Ventura [facility] POCT TEST 2022-09-27 00:00:00 Nayla Ventura [facility] GLUCOSE 1 HOUR POST PRANDIAL 2022-09-22 15:21:00 Joanie Villalobos [facility] TOTAL BETA HCG ASSAY 2022-09-21 21:30:00 Sedrick Villalobos [facility] CBC WITH DIFF 2022-09-21 21:30:00 Joanie Villalobos [facility] HEPATITIS B SURFACE ANTIGEN 2022-09-21 21:30:00 Joanie Villalobos [facility] HCV ANTIBODY 2022-09-21 21:30:00 Joanie Villalobos [facility] HB ABO GROUPING 2022-09-21 21:30:00 Joanie Villalobos [facility] HIV 1/2 AG-AB WITH REFLEX 2022-09-21 21:30:00 Joanie Villalobos [facility] PAP SMEAR-LIQUID BASED-CP 2022-09-21 21:30:00 Joanie Villalobos [facility] POCT TEST 2022-09-21 20:29:00 Jorge Villalobos [facility] POCT URINALYSIS W/O SPECIFIC GRAVITY 2022-09-21 20:29:00 Joanie Villalobos [facility] ADC CLC OR LCC ONLY - WET PREP 2022-09-20 22:24:00 Leeanna Naranjo [facility] FIRST TRIMESTER LESS THAN 14 WEEKS WITH TRANSVAGINAL 2022-09-20 20:12:04 Lee Ann Hussein [facility] URINALYSIS 2022-09-20 15:15:00 Lee Ann Hussein [facility] LIPASE 2022-09-20 15:11:00 [facility] TEST, SERUM 2022-09-20 15:11:00 Itz Hussein [facility] COMP. METABOLIC PANEL (11164) 2022-09-20 15:11:00 Lee Ann Hussein [facility] TOTAL BETA HCG ASSAY 2022-09-20 15:11:00 Lexie Hussein [facility] CBC WITH DIFF 2022-09-20 15:11:00 [facility] PROTHROMBIN TIME / INR 2022-09-20 15:11:00 Tristen Hussein [facility] ACTIVATED PARTIAL THRMPLAS FLORA 2022-09-20 15:11:00 Lee Ann Hussein [facility] CONSENT/REFUSAL FOR DIAGNOSIS AND TREATMENT 2022-09-20 14:05:15 Doctor Unassigned, Esko [facility] XR CHEST 1 VW 2021-11-09 23:31:00 Misty Hooker [facility] CBC WITH DIFF 2021-11-09 23:31:00 Misty Hooker [facility] POCT TEST 2021-11-09 23:21:00 Talya Hooker [facility] URINALYSIS 2021-11-09 23:19[facility] 2021-11-09 23:19:00 Talya Hooker [facility] COVID-19 (ID NOW RAPID TESTING) 2021-11-09 23:19:00 Misty Hooker [facility] LIPASE 2021-11-09 23:13:00 Misty [facility] COMP. METABOLIC PANEL (43693) 2021-11-09 23:13:00 Misty Hooker [facility] NOTICE OF PRIVACY PRACTICES 2021-11-09 22:13:35 Doctor Unassigned, Esko [facility] CONSENT/REFUSAL FOR DIAGNOSIS AND TREATMENT 2021-11-09 22:13:21 Doctor Unassigned, Esko [facility] XR CHEST 1 VW 2021-08-06 09:20:00 Otilia Britton [facility] RAPID INFLUENZA A/B 2021-08-06 08:25:00 Otilia Britton [facility] COVID-19 (ID NOW RAPID TESTING) 2021-08-06 08:25:00 Otilia Britton [facility] BASIC METABOLIC PANEL (NA, K, CL, CO2, GLUCOSE, BUN, CREATININE, CA) 2021-01-29 10:37:00 Chinedu Fragoso [facility] CBC WITH DIFF 2021-01-29 10:37:00 Chinedu Fragoso [facility] VANCOMYCIN TROUGH 2021-01-29 03:57:00 Leeroy Mae [facility] BASIC METABOLIC PANEL (NA, K, CL, CO2, GLUCOSE, BUN, CREATININE, CA) 2021-01-28 10:27:00 Madina [facility] CBC WITH DIFF 2021-01-28 10:27:00 [facility] (NA, K, CL, CO2, GLUCOSE, BUN, CREATININE, CA) 2021-01-28 10:27:00 Madina [facility] CBC WITH DIFF 2021-01-28 10:27:00 [facility] 2021-01-27 21:23:47 Gian Negrete [facility] ASPIRATE OR ABSCESS CULTURE(AEROBIC/ANAEROBIC) 2021-01-27 21:22:56 Zhang [facility] ASPIRATE OR ABSCESS CULTURE(AEROBIC/ANAEROBIC) 2021-01-27 21:22:56 Zhang [facility] INCISION AND DRAINAGE BUTTOCK 2021-01-27 20:50:00 Zhang [facility] INCISION AND DRAINAGE BUTTOCK 2021-01-27 20:50:00 Marva Holcomb [facility] XR CHEST 1 VW 2021-01-27 05:56:15 Madina [facility] XR CHEST 1 VW 2021-01-27 05:56:15 Madina [facility] LACTIC ACID WHOLE BLOOD 2021-01-27 05:47:00 Jon Britton [facility] LACTIC ACID WHOLE BLOOD 2021-01-27 05:47:00 Jon Britton [facility] COVID-19 (ID NOW RAPID TESTING) 2021-01-27 04:33:00 Otilia Britton [facility] COVID-19 (ID NOW RAPID TESTING) 2021-01-27 04:33:00 Otilia Britton [facility] CT PELVIS W CONTRAST 2021-01-27 02:56:37 Otilia Britton [facility] CT PELVIS W CONTRAST 2021-01-27 02:56:37 Otilia Britton [facility] POCT TEST 2021-01-27 02:30:00 Otilia Britton [facility] POCT TEST 2021-01-27 02:30:00 Otilia Britton [facility] BLOOD CULTURE SCREEN 2021-01-27 02:20:00 Otilia Britton [facility] BLOOD CULTURE SCREEN 2021-01-27 02:20:00 Otilia Britton [facility] HEPATIC FUNCTION PANEL (36703) (ALB,T.PRO,BILI T,BU/BC,ALT,AST,ALK PHOS) 2021-01-27 02:09[facility]OL[facility] (NA, K, CL, CO2, GLUCOSE, BUN, CREATININE, CA) 2021-01-27 02:09:00 Otilia Britton [facility] CBC WITH DIFF 2021-01-27 02:09:00 Otilia Britton [facility] LACTIC ACID WHOLE BLOOD 2021-01-27 02:09:00 Jon Britton [facility] HEPATIC FUNCTION PANEL (44081) (ALB,T.PRO,BILI T,BU/BC,ALT,AST,ALK PHOS) 2021-01-27 02:09:00 [facility] MET[facility]OLIC PANEL (NA, K, CL, CO2, GLUCOSE, BUN, CREATININE, CA) 2021-01-27 02:09:00 Otilia Britton [facility] CBC WITH DIFF 2021-01-27 02:09:00 Otilia Britton [facility] LACTIC ACID WHOLE BLOOD 2021-01-27 02:09:00 Jon Britton [facility] BLOOD CULTURE SCREEN 2021-01-27 02:08:00 Otilia Britton [facility] BLOOD CULTURE SCREEN 2021-01-27 02:08:00 Otilia Britton [facility] CONSENT/REFUSAL FOR DIAGNOSIS AND TREATMENT 2021-01-27 01:14:15 Doctor Unassigned, Esko [facility] CONSENT/REFUSAL FOR DIAGNOSIS AND TREATMENT 2021-01-27 01:14:15 Doctor Unassigned, Esko [facility] NOTICE OF PRIVACY PRACTICES 2021-01-27 01:13:39 Doctor Unassigned, Esko [facility] NOTICE OF PRIVACY PRACTICES 2021-01-27 01:13:39 Doctor Unassigned, Esko [facility] POCT TEST 2019-04-22 23:07:00 Jorge Villalobos [facility] NO SHOW OR MISSED APPOINTMENT POLICY ACKNOWLEDGEMENT 2019-04-22 18:55:00 Doctor Unassigned, Esko [facility] Encounters Start Date/Time End Date/Time Encounter Type Admission Type Attending [facility] Care Facility Care Department Encounter ID Source 2021-06-27 22:32:36 Emergency [facility] [id number] [facility] 2023-12-27 13:31:36 2023-12-27 13:31:36 Outpatient SFA SFA [id number] Peter Romero Rolly 2023-12-20 08:57:27 2023-12-20 08:57:27 Outpatient SFA SFA [id number] Peter Romero Rolly 2023-12-15 11:09:28 2023-12-15 11:09:28 Outpatient SFA SFA [id number] Peter Romero Rolly 2023-12-12 17:11:25 2023-12-12 17:11:25 Outpatient SFA SFA [id number] Peter Romero Rolly 2023-12-12 00:00:00 2023-12-12 00:00:00 Outpatient Visit SFA [id number] Peter Romero Rolly 2023-11-06 08:40:08 2023-11-06 08:40:08 Outpatient SFA SFA [id number] Peter Lofton 2023-10-31 08:41:42 2023-10-31 08:41:42 Outpatient SFA SFA [id number] Peter Lofton 2023-10-27 16:36:05 2023-10-27 16:36:05 Outpatient SFA SFA [id number] Peter Lofton 2023-10-19 08:37:30 2023-10-19 08:37:30 Outpatient SFA SFA [id number] Peter Lofton 2023-10-07 09:40:05 2023-10-07 09:40:05 Outpatient SFA SFA [id number] Peter Lofton 2023-10-05 11:37:17 2023-10-05 11:37:17 Outpatient SFA [id number] [id number] Peter Lofton 2023-09-27 14:30:58 2023-09-27 14:30:58 Outpatient SFA SFA [id number] Peter Lofton 2023-09-20 09:14:08 2023-09-20 09:14:08 Outpatient SFA [id number] [id number] Peter Lofton 2023-09-18 14:23:01 2023-09-18 14:23:01 Outpatient SFA SFA [id number] Peter Lofton 2022-10-20 09:00:00 2022-10-20 09:00:00 Outpatient R JOANIE VILLALOBOS [facility] [id number] [facility] 2022-10-11 10:45:00 2022-10-11 15:58:23 Outpatient HANH ROBERTS [facility] [id number] [facility] 2022-10-11 10:45:00 2022-10-11 15:58:23 Telemedici ne Visit [facility] Res-1st Hanh Mcdonald [facility] 1.2.840.114 350.1.13.10 4.2.7.2.686 [id number] [facility] 2022-09-27 08:45:00 2022-09-27 09:49:09 Outpatient R LAVON ROBB [facility] [id number] [facility] 2022-09-27 08:45:00 2022-09-27 09:49:09 Routine Visit Trimester, [facility] Res-1st Lavon Robb [facility] 1.2.840.114 350.1.13.10 4.2.7.2.686 [id number] [facility] 2022-09-26 08:15:00 2022-09-26 08:40:50 Outpatient R JOANIE VILLALOBOS [facility] [id number] [facility] 2022-09-26 08:15:00 2022-09-26 08:40:50 Decorating Instructor Visit Lab, Joanie Ragland [facility] [employer] SUPERVISOR [facility] MATERNAL & CHILD [facility] 1.2.840.114 350.1.13.10 4.2.7.2.686 [id number] [facility] 2022-09-23 00:00:00 2022-09-23 00:00:00 Telephone Joanie Villalobos [facility] [employer] SUPERVISOR [facility] MATERNAL & CHILD [facility] 1.2.840.114 350.1.13.10 4.2.7.2.686 [id number] [facility] 2022-09-22 08:30:00 2022-09-22 08:30:00 Decorating Instructor Visit Lab, Joanie Ragland [facility] [employer] SUPERVISOR [facility] MATERNAL & CHILD [facility] 1.2.840.114 350.1.13.10 4.2.7.2.686 [id number] [facility] 2022-09-22 08:30:00 2022-09-22 08:29:14 Outpatient R JOANIE VILLALOBOS [facility] [id number] [facility] 2022-09-21 14:15:00 2022-09-21 15:35:56 Outpatient R JOANIE VILLALOBOS [facility] [id number] [facility] 2022-09-21 14:15:00 2022-09-21 15:35:56 Initial Visit Wilfredo Joanie Janae [facility] [employer] SUPERVIS[employer] [facility] 1.2840.114 350.1.13.10 4.2.7.2.686 [id number] [facility] 2022-09-20 08:20:00 2022-09-20 16:48:00 Emergency X LEE ANN HUSSEIN [facility] ERT [id number] [facility] 2022-09-20 08:20:00 2022-09-20 16:48:00 Emergency Lee Ann Hussein [facility] 1.2840.114 350.1.13.10 4.2.7.2.686 [id number] [facility] 2021-11-09 17:29:00 2021-11-09 20:21:00 Emergency X MISTY HOOKER [facility] ERT [id number] [facility] 2021-11-09 17:29:00 2021-11-09 20:21:00 Emergency Misty Hokoer [facility] 1.840.114 350.1.13.10 4.2.7.2.686 [id number] [facility] 2021-10-23 09:30:00 2021-10-23 09:30:00 Outpatient WYATT CARRIZALES [facility] [id number] [facility] 2021-08-06 00:30:00 2021-08-06 04:47:00 Emergency X OTILIA BRITTON [facility] ERT [id number] [facility] 2021-08-06 00:30:00 2021-08-06 04:47:00 Emergency Otilia Britton [facility] 1..840.114 350.1.13.10 4.2.7.2.686 [id number] [facility] 2021-02-16 16:00:00 2021-02-16 17:01:15 Outpatient R MARVA HOLCOMB [facility] [id number] [facility] 2021-02-16 15:56:33 2021-02-16 17:01:15 Office Visit Marva Holcomb [facility] Professio nal [facility] 1.2840.114 350.1.13.10 4.2.7.2.686 [id number] [facility] 2021-02-03 00:00:00 2021-02-03 00:00:00 Patient Outreach Elena Gaines [facility] 1.284.114 350.1.13.10 4.2.7.2.686 [id number] [facility] 2021-02-01 00:00:00 2021-02-01 00:00:00 Transition of Care Julio Yaima [facility] 1.2840.114 350.1.13.10 4.2.7.2.686 [id number] [facility] 2021-01-26 20:38:00 2021-01-29 12:24:00 Hospital En[place] 1.2840.114 350.1.13.10 4.2.7.2.686 [id number] [facility] 2021-01-27 15:57:00 2021-01-27 16:36:00 Anesthesia Event Mauro Pruitt [facility] Surgical [place] 1.284.114 350.1.13.10 4.2.7.2.686 [id number] [facility] 2021-01-27 15:30:00 2021-01-27 16:29:00 Surgery Marva Holcomb [facility] 1.114 350.1.13.10 4.2.7.2.686 [id number] [facility] 2019-04-22 13:54:22 2019-04-22 14:17:45 Nurse Visit Visit, Ang-Rmchp Nurse Joanie Villalobos [facility] [employer] SUPERVISOR [facility] MATERNAL & CHILD [facility] 1..114 350.1.13.10 4.2.7.2.686 [id number] [facility] 2019-04-22 00:00:00 2019-04-22 00:00:00 Orders Only Doctor Unassigned, Esko [facility] 1.84.114 350.1.13.10 4.2.7.2.686 [id number] [facility] Results Test Description Test Time Test Comments Results Result Co mments Source CULTURE, [id number] 08:32:29SPECIMEN NUMBER: [id number] CULTURE, URINE SPECIMEN NUMBER: [id number] SPECIMEN COMMENT: URINE SOURCE: URINE REPORT STATUS: FINAL FINAL REPORT: 12/17/2023 50-100,000 CFU/ML UROGENITAL JUNAID PRESENT NO COMMON PATHOGENSNIPT W/ [id number] 00:00:00* Test Item Value Reference Range Interpretation Comme nts FINAL NIPS RESULT (test code = 51079) Low Risk PREDICTED SEX (test code = 71522) Male FRACTION (EST.) (test code = 50603) 10 % TRISOMY 21 (T21) (test code = 02813) Low probability T21 PRE-TEST PROB (test code = 49022) 1/351 T21 POST-TEST PROB (test cod e = 20871) <1/20,000 TRISOMY 18 (T18) (test code = 639532) Low probability T18 PRE-TEST PROB (test code = 500754) 08/28,227 T18 POST-TEST PROB (test cod e = 316982) <1/20,000 TRISOMY 13 (T13) (test code = 548871) Low probability T13 PRE-TEST PROB (test code = 807095) 08/30,236 T13 POST-TEST PROB (test cod e = 227297) <1/20,000 INTERPRETATION (test code = 859439) See Note IMPORTANT INFORMATION (test code = 403866) See Note RECOMMENDATION (test code = 404347) See Note GESTATION AT [place] (W) (test code = 171274) 12 weeks GESTATION AT [place] (D) (test code = 092934) 6 days DELIVERY DATE (EST.) (test code = 779377) 05/08/2024 PROVIDED HISTORY INFORMATION (test code = 307138) NUMBER OF FETUSES (test code = 255655) Prasad MATERNAL WEIGHT (test code = 441501) 174 LBS DATING METHOD (test code = 622498) LMP ESTIMATED DATE OF DELIVERY (GENET) (test code = 569961) 08/02/2023 IVF (test code = 608185) NO PATIENT CONSENT (test code = 587396) YES SEX (test code = 678799) See Note PDFE (test code = PDFReport) PDF Peter Romero AustinGLUCOSE TOLERANCE GESTATIONAL, 100 GM LOAD, DIAG., (FASTING,1HR 2023-11-07 00:00:00* Test Item Value Reference Range Interpretation Comme nts GLUCOSE, FASTING (test code = 96104) 85 MG/DL GLUCOSE, 1 HR (test code = ) 165 MG/DL GLUCOSE, 2 HR (test code = ) 130 MG/DL GLUCOSE, 3 HR (test code = ) 106 MG/DL Peter LoftonCULTURE, [id number] 00:00:00* Test Item Value Reference Range Interpretation Comme nts CULTURE, URINE (test code = 48364) SPECIMEN NUMBER: [id number] Peter Romero AustinGLUCOSE, 1 HR, GESTATIONAL SCREEN, 50 GM [id number] 00:00:00 * Test Item Value Reference Range Interpretation Comme nts GLUCOSE 1 HR POST 50 GM (raghavendra t code = 2005) 152 MG/DL Peter LoftonHCG, [id number] 01:40:52* Test Item Value Reference Range Interpretation Comme nts HCG, QUANTITATIVE (test code = 2506) 28398 MIU/ML SEE BELOW EXPEC MARIAH VALUES FOR HCG GST.AGE UNITS RANGE GST. AGE UNITS RANGE3 WEEKS MIU/ML 6-71 10 WEEKS MIU/ML 46,509-186,9774 WEEKS MIU/ML 10-750 12 WEEKS MIU/ML 27,832-210,6125 WEEKS MIU/ML 217-7,138 14 WEEKS MIU/ML 13,950-62,5306 WEEKS MIU/ML 158-31,795 15 WEEKS MIU/ML 12,039-70,9717 WEEKS MIU/ML 3,697-163,563 16 WEEKS MIU/ML 9,040-56,4518 WEEKS MIU/ML 32,065-149,571 17 WEEKS MIU/ML 8,175-55,8689 WEEKS MIU/ML 63,803-151,410 18 WEEKS MIU/ML 8,099-58,176MALES and NON- FEMALES . . . . . . . . MIU/ML 4-5GZON-JUGWYATJFW FEMALES . . . . . . . . . . . . MIU/ML <=7 UNLESS OTHERWISE INDICATED, ALL TESTING PERFORMED AT [facility] [address] [place] [address] [employer] GAUGER: GOPAL BACON M.D. CLIA NUMBER [id number] [place] [place]. [id number] HCG, [id number] 00:00:00* Test Item Value Reference Range Interpretation Comme nts HCG, QUANTITATIVE (test code = 2506) 70525 MIU/ML Peter LoftonHCG, [id number] 00:00:00* Test Item Value Reference Range Interpretation Comme nts HCG, QUANTITATIVE (test code = 2506) 88809 MIU/ML Peter LoftonCULTURE, [id number] 00:00:00* Test Item Value Reference Range Interpretation Comme nts CULTURE, URINE (test code = 84630) SPECIMEN NUMBER: [id number] Peter LoftonHEMOGLOBIN [id number] 00:00:00* Test Item Value Reference Range Interpretation Comme nts HEMOGLOBIN A1 (test code = 2575) 98.1 % HEMOGLOBIN A2 (test code = 2576) 1.9 % HEMOGLOBIN F () (test c ode = 2802) 0.0 % HEMOGLOBIN S (test code = 2724) NONE % HEMOGLOBIN C (test code = 2726) NONE % OTHER HEMOGLOBIN VARIANT (te st code = 02684) NONE DETEC % PATHOLOGIST'S INTERPRETATION (test code = 2577) (NOTE) Peter LoftonCT/NG, TMA, [id number] 00:00:00* Test Item Value Reference Range Interpretation Comme nts CHLAMYDIA, NAAT, URINE (test code = 64181) NEGATIVE GONORRHEA, NAAT, URINE (test code = 30966) NEGATIVE Peter LoftonOBSTETRIC PANEL + [id number] 00:00:00* Test Item Value Reference Range Interpretation Comme nts WBC (test code = 1001) 10.5 K/UL RBC (test code = 1002) 4.21 M/UL HEMOGLOBIN (test code = 1003) 9.4 G/DL HEMATOCRIT (test code = 1004) 30.3 % MCV (test code = 1005) 72.0 fL MCH (test code = 1006) 22.3 PG MCHC (test code = 1007) 31.0 G/DL RDW (test code = 1038) 18.8 % NEUTROPHILS (test code = 1008) 64.0 % LYMPHOCYTES (test code = 1010) 28.4 % MONOCYTES (test code = 1011) 4.7 % EOSINOPHILS (test code = 1012) 2.0 % BASOPHILS (test code = 1013) 0.5 % IMMATURE GRANULOCYTES (test code = 1036) 0.4 % NUCLEATED RBCS (test code = 1065) 0.0 /100WBC'S PLATELET COUNT (test code = 1015) 327 K/UL ABSOLUTE NEUTROPHILS (test code = 1066) 6.72 K/UL ABSOLUTE LYMPHOCYTES (test code = 1067) 2.98 K/UL ABSOLUTE MONOCYTES (test code = 1068) 0.49 K/UL ABSOLUTE EOSINOPHILS (test code = 1040) 0.21 K/UL ABSOLUTE BASOPHILS (test code = 1069) 0.05 K/UL ABS IMMATURE GRANULOCYTES (test code = 1020) 0.04 K/UL ABS NUCLEATED RBCS (test code = 18142) 0.00 K/UL BLOOD TYPE AND RH (test code = 3901) O POSITIVE ANTIBODY SCREEN (test code = 3902) NEGATIVE RUBELLA ANTIBODY SCREEN (test code = 4600) 379 IU/ML RUBELLA IgG INTERP (test code = 18856) REACTIVE HEPATITIS B SURF AG (test code = 4139) NON-REACTIVE RPR (test code = 17546) NON-REACTIVE RPR TITER (test code = 3500) NOT INDIC. TITER HIV 1/2 4TH GEN, RFLX CONF (test code = 3514) NON-REACTIVE Peter LoftonDRUG ABUSE PANEL 10 WITH [id number] 00:00:00* Test Item Value Reference Range Interpretation Comme nts AMPHETAMINES (test code = 3201) NEGATIVE BARBITURATES (test code = 3202) NEGATIVE BENZODIAZEPINES (test code = 3203) NEGATIVE CANNABINOIDS (test code = 3204) NEGATIVE COCAINE METABOLITE (test cod e = 3205) NEGATIVE OPIATES (test code = 3209) NEGATIVE OXYCODONE (test code = 17354) NEGATIVE PHENCYCLIDINE (test code = 3210) NEGATIVE METHADONE (test code = 3207) NEGATIVE BUPRENORPHINE (test code = 39675) NEGATIVE SOURCE (test code = 409693) URINE Peter LoftonVARICELLA ZOSTER [id number] 00:00:00* Test Item Value Reference Range Interpretation Comme michael VARICELLA ZOSTER IgG (test c ode = 02384) >2000 INDEX Peter LoftonHEPATITIS C REFLEX [id number] 00:00:00* Test Item Value Reference Range Interpretation Comme nts HEPATITIS C ANTIBODY (test c ode = 4675) NON-REACTIVE Peter LoftonGLUCOSE, 1 HR, GESTATIONAL SCREEN, 50 GM [id number] 00:00:00 * Test Item Value Reference Range Interpretation Comme nts GLUCOSE 1 HR POST 50 GM (raghavendra t code = 2005) 121 MG/DL Peter LoftonTRICHOMONAS, URINE, [id number] 00:00:00* Test Item Value Reference Range Interpretation Comme nts TRICHOMONAS, NAAT, URINE (te st code = 40856) NEGATIVE Peter LoftonPOCT [id number] 15:49:00* Test Item Value Reference Range Interpretation Comme nts POCT PREG (test code = 1605) Positive On board controls acceptable with C Line (test code = 3574) Yes POCT PREG LOT # (test code = 3575) POCT PREG TEST DATE ( test code = 3576) [facility] [id number] 15:40:00* Test Item Value Reference Range Interpretation Comme nts POCT PREG (test code = 1605) Positive On board controls acceptable with C Line (test code = 3574) Yes POCT PREG LOT # (test code = 3575) POCT PREG TEST DATE ( test code = 3576) Lab Interpretation (test cod e = 55549-5) Abnormal [facility] AG-AB WITH [id number] 11:31:52* Test Item Value Reference Range Interpretation Comme nts HIV Semi-quantitative (test code = 69501-2) Negative Negative ASHLEE (test code = ASHLEE) Non-reactive for HIV-1 antigen and HIV-1/HIV-2 antibodies. ?No laboratory evidence of HIV infection. ?Repeat in 2-4 weeks if acute HIV infection is suspected. [facility], BLOOD [id number] 10:13:07 * Test Item Value Reference Range Interpretation Comme nts ABO & RH (test code = 20) O POSITIVE Performed at [facility] Laboratory Services [facility] Blood [address] Free: [phone] No. [id number] IAT (test code = 1185) Negative Performed at [facility] Laboratory [facility] Blood [address] Free: [phone] No. [id number] [facility] [id number] 08:18:32* Test Item Value Reference Range Interpretation Comme nts HCV Ab (test code = 48553-1) Negative HCV Semi-Quantitative (test code = 36273-7) [facility]AT[facility] SURFACE [id number] 08:01:30 * Test Item Value Reference Range Interpretation Comme nts HBsAg Semi-Quantitative (raghavendra t code = 5195-3) Negative [facility] [id number] 07:56:47* Test Item Value Reference Range Interpretation Comme nts BETA HCG (test code = 5629921936) See_Comment [Automated messa ge] The system which generated this result transmitted reference range: Non- female and male patients: <5 mIU/mL. The reference range was not used to interpret this result as normal/abnormal. ASHLEE (test code = ASHLEE) Gestational Age ?Range (mIU/mL) 1-10 ?Weeks ?[id number] Weeks ?41287-41356277-94 Weeks ?0049-52954545-90 Weeks ?9341-397304 Biotin has been reported to cause a negative bias, interpret results relative to patient's use of biotin. [facility] WITH [id number] 06:34:02* Test Item Value Reference Range Interpretation Comme nts WBC (test code = 6690-2) See_Comment [Automated [employer] ge] The system which generated this result transmitted reference range: 4.30 - 11.10 10*3/?L. The reference range was not used to interpret this result as normal/abnormal. RBC (test code = 789-8) See_Comment [Automated [employer] ge] The system which generated this result [...] g/dL 31.6-35.1 L RDW-SD (test code = 23368-1) 48.1 fL 39.0-49.9 RDW-CV (test code = 788-0) 17.2 % 12.0-15.5 H PLT (test code = 777-3) See_Comment [Automated [employer] ge] The system which generated this result transmitted reference range: 166 - 358 10*3/?L. The reference range was not used to interpret this result as normal/abnormal. MPV (test code = 47770-9) 11.3 fL 9.5-12.9 NRBC/100 WBC (test code = 9952177284) See_Comment [Automated me ssage] The system which generated this result transmitted reference range: 0.0 - 10.0 /100 WBCs. The reference range was not used to interpret this result as normal/abnormal. NRBC x10^3 (test code = 6121962639) See_Comment [Automated messa ge] The system which generated this result transmitted reference range: 10*3/?L. The reference range was not used to interpret this result as normal/abnormal. GRAN MAT (NEUT) % (test code = 770-8) 70.4 % IMM GRAN % (test code = 8781969838) 0.60 % LYMPH % (test code = 736-9) 21.6 % MONO % (test code = 5905-5) 5.7 % EOS % (test code = 713-8) 1.1 % BASO % (test code = 706-2) 0.6 % GRAN MAT x10^3(ANC) (test code = 3617317931) 7.10 10*3/uL 1.88-7.09 H IMM GRAN x10^3 (test code = 0162949086) 0.06 10*3/uL 0.00-0.06 LYMPH x10^3 (test code = 731-0) 2.18 10*3/uL 1.32-3.29 MONO x10^3 (test code = 742-7) 0.57 10*3/uL 0.33-0.92 EOS x10^3 (test code = 711-2) 0.11 10*3/uL 0.03-0.39 BASO x10^3 (test code = 704-7) 0.06 10*3/uL 0.01-0.07 Lab Interpretation (test code = 56995-1) Abnormal [facility] URINALYSIS W/O SPECIFIC [id number] 20:30:00* Test Item Value Reference Range Interpretation [...] = 3257) Large Negative - Negati ve [facility] URINALYSIS W/O SPECIFIC [id number] 20:30:00* Test Item Value Reference Range Interpretation [...] = 3257) Large Negative - Negati ve [facility] [id number] 20:29:00* Test Item Value Reference Range Interpretation Comme nts POCT PREG (test code = 1605) Positive On board controls acceptable with C Line (test code = 3574) Yes POCT PREG LOT # (test code = 3575) POCT PREG TEST DATE ( test code = 3576) [facility] [id number] 20:29:00* Test Item Value Reference Range Interpretation Comme nts POCT PREG (test code = 1605) Positive On board controls acceptable with C Line (test code = 3574) Yes POCT PREG LOT # (test code = 3575) POCT PREG TEST DATE ( test code = 3576) [facility] BHCG (QUANTITATIVE)2022-09-20 17:15:40* Test Item Value Reference Range Interpretation Comme nts BETA HCG (test code = 3620540459) See_Comment [Automated messa ge] The system which generated this result transmitted reference range: Non- female and male patients: <5 mIU/mL. The reference range was not used to interpret this result as normal/abnormal. ASHLEE (test code = ASHLEE) Gestational Age ?Range (mIU/mL) 1-10 ?Weeks ?01-08829967-41 Weeks ?63998-79146113-57 Weeks ?1583-87016964-39 Weeks ?3474-833606 Biotin has been reported to cause a negative bias, interpret results relative to patient's use of biotin. [facility], [id number] 16:16:57* Test Item Value Reference Range Interpretation Comme nts PREG SERUM (test code = 7743355898) Positive ASHLEE (test code = ASHLEE) Positive greater t lewis or equal to 10 IU/L hCG. [facility]viewACTIVATED PARTIAL THRMPLAS [id number] 16:14:06* Test Item Value Reference Range Interpretation Comme nts APTT Patient (test code = 3173-2) See_Comment [Automated message] The system which generated this result transmitted reference range: 23 - 38 Seconds. The reference range was not used to interpret this result as normal/abnormal. ASHLEE (test code = ASHLEE) The [facility] patient population mean normal value for aPTT is 30 seconds. Lab Interpretation (test code = 80894-0) Normal [facility] LongviewPROTHROMBIN TIME / [id number] 16:12:09* Test Item Value Reference Range Interpretation Comme nts PROTIME PATIENT (test code = 5964-2) See_Comment [Automated messa ge] The system which generated this result transmitted reference range: 12.0 - 14.7 Seconds. The reference range was not used to interpret this result as normal/abnormal. INR (test code = 6301-6) Normal INR <1.1; Warfarin Therapeutic range 2.0 to 3.0 or 2.5 to 3.5, depending upon the indications. Lab Interpretation (test code = 30775-3) Normal [facility]viewCOMP. METABOLIC PANEL (93924)2022-09-20 15:58:03* Test Item Value Reference Range Interpretation Comme nts NA (test code = 3897273296) 136 mmol/L 135-145 K (test code = 1125763629) 4.1 mmol/L 3.5-5.0 CL (test code = 9592356307) 102 mmol/L 98-108 CO2 TOTAL (test code = 0234227590) 25 mmol/L 23-31 AGAP (test code = 4891847871) 2-16 BUN (test code = 5857775459) 9 mg/dL 7-23 GLUCOSE (test code = 2439492376) 94 mg/dL 70-110 CREATININE (test code = 0571702782) 0.48 mg/dL 0.50-1.04 L TOTAL BILI (test code = 5395239211) 0.4 mg/dL 0.1-1.1 CALCIUM (test code = 8447450751) 8.8 mg/dL 8.6-10.6 T PROTEIN (test code = 9257757395) 7.4 g/dL 6.3-8.2 ALBUMIN (test code = 3461142704) 4.5 g/dL 3.5-5.0 ALK PHOS (test code = 9673607221) 77 U/L 34-122 ALTv (test code = 1742-6) 15 U/L 5-35 AST(SGOT) (test code = 8778755172) 19 U/L 13-40 eGFR (test code = 0439051706) mL/min/1.73m2 ASHLEE (test code = ASHLEE) Association [...] imaging tests). Lab Interpretation (test code = 43726-0) Abnormal [facility]view[facility]IPASE2023-01-24 15:58:03* Test Item Value Reference Range Interpretation Comme nts LIPASE (test code = 8196139138) 74 U/L 0-220 Lab Interpretation (test cod e = 01595-9) Normal [facility]viewCB WITH [id number] 15:56:47* Test Item Value Reference Range Interpretation Comme nts WBC (test code = 6690-2) See_Comment [Automated [employer]] The system which generated this result transmitted reference range: 4.30 - 11.10 10*3/?L. The reference range was not used to interpret this result as normal/abnormal. RBC (test code = 789-8) See_Comment [Automated [employer]] The system which generated this result transmitted [...] g/dL 31.6-35.1 L RDW-SD (test code = 40494-4) 47.3 fL 39.0-49.9 RDW-CV (test code = 788-0) 17.0 % 12.0-15.5 H PLT (test code = 777-3) See_Comment [Automated [employer]] The system which generated this result transmitted reference range: 166 - 358 10*3/?L. The reference range was not used to interpret this result as normal/abnormal. MPV (test code = 62799-5) 10.5 fL 9.5-12.9 NRBC/100 WBC (test code = 4959549997) See_Comment [Automated The[employer] ssage] The system which generated this result transmitted reference range: 0.0 - 10.0 /100 WBCs. The reference range was not used to interpret this result as normal/abnormal. NRBC x10^3 (test code = 6937162837) See_Comment [Automated messa ge] The system which generated this result transmitted reference range: 10*3/?L. The reference range was not used to interpret this result as normal/abnormal. GRAN MAT (NEUT) % (test code = 770-8) 58.6 % IMM GRAN % (test code = 8632653642) 0.80 % LYMPH % (test code = 736-9) 30.9 % MONO % (test code = 5905-5) 6.6 % EOS % (test code = 713-8) 2.4 % BASO % (test code = 706-2) 0.7 % GRAN MAT x10^3(ANC) (test code = 2096781418) 5.29 10*3/uL 1.88-7.09 IMM GRAN x10^3 (test code = 6758486712) 0.07 10*3/uL 0.00-0.06 H LYMPH x10^3 (test code = 731-0) 2.79 10*3/uL 1.32-3.29 MONO x10^3 (test code = 742-7) 0.60 10*3/uL 0.33-0.92 EOS x10^3 (test code = 711-2) 0.22 10*3/uL 0.03-0.39 BASO x10^3 (test code = 704-7) 0.06 10*3/uL 0.01-0.07 Lab Interpretation (test code = 38120-0) Abnormal [facility] WITH [id number] 23:41:07* Test Item Value Reference Range Interpretation [...] g/dL 31.6-35.1 L RDW-SD (test code = 61186-6) 40.8 fL 39.0-49.9 RDW-CV (test code = 788-0) 15.0 % 12.0-15.5 PLT (test code = 777-3) See_Comment H [Automated messa ge] The system which generated this result transmitted reference range: 166 - 358 10*3/?L. The reference range was not used to interpret this result as normal/abnormal. MPV (test code = 55300-8) 10.5 fL 9.5-12.9 NRBC/100 WBC (test code = 7726931162) See_Comment [Automated [employer] ssage] The system which generated this result transmitted reference range: 0.0 - 10.0 /100 WBCs. The reference range was not used to interpret this result as normal/abnormal. NRBC x10^3 (test code = 1172135120) <0.01 See_Comment [Automated messa ge] The system which generated this result transmitted reference range: 10*3/?L. The reference range was not used to interpret this result as normal/abnormal. GRAN MAT (NEUT) % (test code = 770-8) 83.2 % IMM GRAN % (test code = 1130780450) 0.60 % LYMPH % (test code = 736-9) 8.5 % MONO % (test code = 5905-5) 6.6 % EOS % (test code = 713-8) 0.8 % BASO % (test code = 706-2) 0.3 % GRAN MAT x10^3(ANC) (test code = 8584172368) 7.73 10*3/uL 1.88-7.09 H IMM GRAN x10^3 (test code = 9376980467) 0.06 10*3/uL 0.00-0.06 LYMPH x10^3 (test code = 731-0) 0.79 10*3/uL 1.32-3.29 L MONO x10^3 (test code = 742-7) 0.61 10*3/uL 0.33-0.92 EOS x10^3 (test code = 711-2) 0.07 10*3/uL 0.03-0.39 BASO x10^3 (test code = 704-7) 0.03 10*3/uL 0.01-0.07 Lab Interpretation (test code = 75938-4) Abnormal [facility]OLIC PANEL (24189)2021-11-09 23:32:45* Test Item Value Reference Range Interpretation Comme nts NA (test code = 9230250360) 135 mmol/L 135-145 K (test code = 3397404925) 4.3 mmol/L 3.5-5.0 CL (test code = 3048100218) 100 mmol/L 98-108 CO2 TOTAL (test code = 9876604497) 26 mmol/L 23-31 AGAP (test code = 1380533422) 2-16 BUN (test code = 5432118363) 8 mg/dL 7-23 GLUCOSE (test code = 4991817816) 98 mg/dL 70-110 CREATININE (test code = 4046373332) 0.56 mg/dL 0.50-1.04 TOTAL BILI (test code = 8419513588) 0.5 mg/dL 0.1-1.1 CALCIUM (test code = 1902076209) 8.7 mg/dL 8.6-10.6 T PROTEIN (test code = 1645397666) 7.7 g/dL 6.3-8.2 ALBUMIN (test code = 0722228490) 4.7 g/dL 3.5-5.0 ALK PHOS (test code = 2511150114) 82 U/L 34-122 ALTv (test code = 1742-6) 14 U/L 5-35 AST(SGOT) (test code = 0783963190) 34 U/L 13-40 eGFR (test code = 6761220861) mL/min/1.73m2 ASHLEE (test code = ASHLEE) Association [...] or urine or abnormalities in imaging tests). [facility] 23:32:25* Test Item Value Reference Range Interpretation Comme [facility] LIPASE (test code = 4416456828) 70 U/L 0-220 Lab Interpretation (test cod e = 15214-2) Normal [facility]PO[facility] [id number] 23:21:00* Test Item Value Reference Range Interpretation Comme [facility] POCT PREG (test code = 1605) NEGATIVE On board controls acceptable with C Line (test code = 3574) PRESENT POCT PREG LOT # (test code = 3575) [id number] POCT PREG TEST DATE ( test code = 3576) Lab Interpretation (test cod e = 69992-6) Normal [facility] METABOLIC PANEL (NA, K, CL, CO2, GLUCOSE, BUN, CREATININE, CA)2021-01-29 11:56:16* Test Item Value Reference Range Interpretation Comme nts NA (test code = 8910880897) 140 mmol/L 135-145 K (test code = 6590713562) 3.4 mmol/L 3.5-5.0 L CL (test code = 5949895192) 106 mmol/L 98-108 CO2 TOTAL (test code = 5870728740) 27 mmol/L 23-31 AGAP (test code = 4814023722) 2-16 BUN (test code = 3580703534) 12 mg/dL 7-23 GLUCOSE (test code = 2723796724) 90 mg/dL 70-110 CREATININE (test code = 9439486428) 0.88 mg/dL 0.50-1.04 CALCIUM (test code = 3098504539) 8.6 mg/dL 8.6-10.6 eGFR (test code = 3695929810) mL/min/1.73m2 ASHLEE (test code = ASHLEE) Association [...] imaging tests). Lab Interpretation (test code = 55672-8) Abnormal [facility] WITH [id number] 11:26:15* Test Item Value Reference Range Interpretation Comme nts WBC (test code = 6690-2) See_Comment [Automated [employer]] The system which generated this result transmitted reference range: 4.30 - 11.10 10*3/?L. The reference range was not used to interpret this result as normal/abnormal. RBC (test code = 789-8) See_Comment L [Automated [employer]] The system which generated this result transmitted [...] g/dL 31.6-35.1 L RDW-SD (test code = 95009-9) 42.7 fL 39.0-49.9 RDW-CV (test code = 788-0) 14.1 % 12.0-15.5 PLT (test code = 777-3) See_Comment [Automated [employer]] The system which generated this result transmitted reference range: 166 - 358 10*3/?L. The reference range was not used to interpret this result as normal/abnormal. MPV (test code = 25609-8) 10.5 fL 9.5-12.9 NRBC/100 WBC (test code = 9073443994) See_Comment [Automated me ssage] The system which generated this result transmitted reference range: 0.0 - 10.0 /100 WBCs. The reference range was not used to interpret this result as normal/abnormal. NRBC x10^3 (test code = 4216179233) <0.01 See_Comment [Automated messa ge] The system which generated this result transmitted reference range: 10*3/?L. The reference range was not used to interpret this result as normal/abnormal. GRAN MAT (NEUT) % (test code = 770-8) 68.3 % IMM GRAN % (test code = 2622812392) 0.70 % LYMPH % (test code = 736-9) 19.6 % MONO % (test code = 5905-5) 7.1 % EOS % (test code = 713-8) 3.8 % BASO % (test code = 706-2) 0.5 % GRAN MAT x10^3(ANC) (test code = 9095049022) 6.23 10*3/uL 1.88-7.09 IMM GRAN x10^3 (test code = 6993860586) 0.06 10*3/uL 0.00-0.06 LYMPH x10^3 (test code = 731-0) 1.79 10*3/uL 1.32-3.29 MONO x10^3 (test code = 742-7) 0.65 10*3/uL 0.33-0.92 EOS x10^3 (test code = 711-2) 0.35 10*3/uL 0.03-0.39 BASO x10^3 (test code = 704-7) 0.05 10*3/uL 0.01-0.07 Lab Interpretation (test code = 28599-3) Abnormal [facility] T[facility] Level - Draw no more than 60 minutes before the 1100 dose.2021-01-29 05:02:45* Test Item Value Reference Range Interpretation Comme nts VANCO TROUGH (test code = 7245117192) 7.6 ug/mL 10.0-20.0 L ASHLEE (test code = ASHLEE) Toxic Range: ?>20 ug/mL 15-20 ug/mL is recommended for severe infection or when Vancomycin AURA is greater than or equal to 2. Lab Interpretation (test code = 21825-8) Abnormal [facility] Metabolic Panel (NA, K, CL, CO2, GLUCOSE, BUN, CREATININE, CA)2021-01-28 11:50:40* Test Item Value Reference Range Interpretation Comme nts NA (test code = 7999365861) 138 mmol/L 135-145 K (test code = 3863246157) 4.2 mmol/L 3.5-5.0 CL (test code = 0113318448) 104 mmol/L 98-108 CO2 TOTAL (test code = 4728138387) 25 mmol/L 23-31 AGAP (test code = 4547148130) 2-16 BUN (test code = 9807952998) 7 mg/dL 7-23 GLUCOSE (test code = 1150675099) 147 mg/dL 70-110 H CREATININE (test code = 7511216778) 0.44 mg/dL 0.50-1.04 L CALCIUM (test code = 5642780578) 9.0 mg/dL 8.6-10.6 eGFR (test code = 3072983720) mL/min/1.73m2 ASHLEE (test code = ASHLEE) Association [...] imaging tests). Lab Interpretation (test code = 51086-2) Abnormal [facility] Metabolic Panel (NA, K, CL, CO2, GLUCOSE, BUN, CREATININE, CA)2021-01-28 11:50:40* Test Item Value Reference Range Interpretation Comme nts NA (test code = 7430714238) 138 mmol/L 135-145 K (test code = 1225905191) 4.2 mmol/L 3.5-5.0 CL (test code = 9866992808) 104 mmol/L 98-108 CO2 TOTAL (test code = 9777035182) 25 mmol/L 23-31 AGAP (test code = 2686850148) 2-16 BUN (test code = 7312359567) 7 mg/dL 7-23 GLUCOSE (test code = 4997217354) 147 mg/dL 70-110 H CREATININE (test code = 1170015505) 0.44 mg/dL 0.50-1.04 L CALCIUM (test code = 4504272619) 9.0 mg/dL 8.6-10.6 eGFR (test code = 6266286232) mL/min/1.73m2 ASHLEE (test code = ASHLEE) Association [...] imaging tests). Lab Interpretation (test code = 17286-4) Abnormal [facility] with Isvhshqtrafg6282-61-78 11:08:37* Test Item Value Reference Range Interpretation Comme nts WBC (test code = 6690-2) See_Comment H [Automated [employer]] The system which generated this result transmitted reference range: 4.30 - 11.10 10*3/?L. The reference range was not used to interpret this result as normal/abnormal. RBC (test code = 789-8) See_Comment L [Automated [employer]] The system which generated this result transmitted [...] g/dL 31.6-35.1 L RDW-SD (test code = 53714-3) 41.9 fL 39.0-49.9 RDW-CV (test code = 788-0) 13.6 % 12.0-15.5 PLT (test code = 777-3) See_Comment H [Automated [employer]] The system which generated this result transmitted reference range: 166 - 358 10*3/?L. The reference range was not used to interpret this result as normal/abnormal. MPV (test code = 50646-9) 10.6 fL 9.5-12.9 NRBC/100 WBC (test code = 7637502760) See_Comment [Automated [employer] ssage] The system which generated this result transmitted reference range: 0.0 - 10.0 /100 WBCs. The reference range was not used to interpret this result as normal/abnormal. NRBC x10^3 (test code = 3593709138) <0.01 See_Comment [Automated messa ge] The system which generated this result transmitted reference range: 10*3/?L. The reference range was not used to interpret this result as normal/abnormal. GRAN MAT (NEUT) % (test code = 770-8) 87.6 % IMM GRAN % (test code = 9208763994) 0.40 % LYMPH % (test code = 736-9) 8.8 % MONO % (test code = 5905-5) 2.8 % EOS % (test code = 713-8) 0.1 % BASO % (test code = 706-2) 0.3 % GRAN MAT x10^3(ANC) (test code = 0065742920) 9.81 10*3/uL 1.88-7.09 H IMM GRAN x10^3 (test code = 5653190979) 0.05 10*3/uL 0.00-0.06 LYMPH x10^3 (test code = 731-0) 0.98 10*3/uL 1.32-3.29 L MONO x10^3 (test code = 742-7) 0.31 10*3/uL 0.33-0.92 L EOS x10^3 (test code = 711-2) <0.03 0.03-0.39 L BASO x10^3 (test code = 704-7) 0.03 10*3/uL 0.01-0.07 Lab Interpretation (test code = 11729-6) Abnormal [facility] with Avybjseeifqi7123-39-53 11:08:37* Test Item Value Reference Range Interpretation [...] g/dL 31.6-35.1 L RDW-SD (test code = 28150-3) 41.9 fL 39.0-49.9 RDW-CV (test code = 788-0) 13.6 % 12.0-15.5 PLT (test code = 777-3) See_Comment H [Automated messa ge] The system which generated this result transmitted reference range: 166 - 358 10*3/?L. The reference range was not used to interpret this result as normal/abnormal. MPV (test code = 77742-9) 10.6 fL 9.5-12.9 NRBC/100 WBC (test code = 0431248045) See_Comment [Automated [employer] ssage] The system which generated this result transmitted reference range: 0.0 - 10.0 /100 WBCs. The reference range was not used to interpret this result as normal/abnormal. NRBC x10^3 (test code = 6573658854) <0.01 See_Comment [Automated messa ge] The system which generated this result transmitted reference range: 10*3/?L. The reference range was not used to interpret this result as normal/abnormal. GRAN MAT (NEUT) % (test code = 770-8) 87.6 % IMM GRAN % (test code = 7647313787) 0.40 % LYMPH % (test code = 736-9) 8.8 % MONO % (test code = 5905-5) 2.8 % EOS % (test code = 713-8) 0.1 % BASO % (test code = 706-2) 0.3 % GRAN MAT x10^3(ANC) (test code = 6473449987) 9.81 10*3/uL 1.88-7.09 H IMM GRAN x10^3 (test code = 6085019006) 0.05 10*3/uL 0.00-0.06 LYMPH x10^3 (test code = 731-0) 0.98 10*3/uL 1.32-3.29 L MONO x10^3 (test code = 742-7) 0.31 10*3/uL 0.33-0.92 L EOS x10^3 (test code = 711-2) <0.03 0.03-0.39 L BASO x10^3 (test code = 704-7) 0.03 10*3/uL 0.01-0.07 Lab Interpretation (test code = 83018-2) [facility]normal [facility] 21:23:47Gian Negrete CRNA ? ? 01/27/2021 ?4:24 PMIntubationUrgency: elective Airway not difficult General Information and Staff Patient location during procedure: ORResident/SUPERVISOR TELLERS: Gian Negrete CRNAPerformed:resident/SUPERVISOR TELLERS Indications and Patient ConditionIndications for airway management: anesthesiaSpontaneous Ventilation: absentSedation level: deepPreoxygenated: yesPatient position: sniffingMILS maintained throughoutMask difficulty assessment: 0 - not attempted Final Airway DetailsFinal airway type: supraglottic airway Successful airway: Supraglottic airway: igel.Size 3 Number of attempts at approach: 1 Additional CommentsAirway dry intactUnUT Health East Texas Jacksonville HospitalCT PELVIS W CONTRAST 2021-01-27 12:56:13A 6 cm right subcutaneous gluteal collection with layering fat, mayrepresent seroma or hematoma. However superimposed infection cannot beruled out. Clinical correlation is recommended. Preliminary Report Dictated by Resident: Cadence Thompson MD., have reviewed this study and agree with theabove report.EXAM: CT PELVIS WITH CONTRAST HISTORY: [place] in [place]20 and that it wasfeeling fine up [...] abutting the mid right gluteus prashant muscle. [facility], Radiant Results Inft User - 01/27/2021 7:57 AM CDT EXAM: CT PELVIS WITH CONTRASTHISTORY: had a butt-lift surgery in [place] on 12/23/20 and that it wasfeeling fine [...] reviewed this study and agree with theabove report.[facility] [id number] 12:56:13A 6 cm right subcutaneous gluteal collection with layering fat, mayrepresent seroma or hematoma. However superimposed infection cannot beruled out. Clinical correlation is recommended. Preliminary Report Dictated by Resident: Cadence Thompson MD., have reviewed this study and agree with theabove report.EXAM: CT PELVIS WITH CONTRAST HISTORY: [place] and that it wasfeeling fine up [...] WITH CONTRASTHISTORY: had a butt-[place] surgery in [place] 12/23[place]20 and that it wasfeeling fine [...] reviewed this study and agree with theabove report.[facility]80400[facility] (ALB,T.PRO,BILI T,BU/BC,ALT,AST,ALK PHOS)2021-01-27 06:43:32* Test Item Value Reference Range Interpretation Comme nts TOTAL BILI (test code = 5005103780) 0.3 mg/dL 0.1-1.1 BILI UNCON (test code = 2086420559) 0.1 mg/dL 0.1-1.1 BILI CONJ (test code = 8776089857) 0.0 mg/dL 0.0-0.3 T PROTEIN (test code = 7804058353) 7.0 g/dL 6.3-8.2 ALBUMIN (test code = 1591623698) 3.8 g/dL 3.5-5.0 ALK PHOS (test code = 7844248057) 114 U/L 34-122 ALTv (test code = 1742-6) 16 U/L 5-35 AST(SGOT) (test code = 2311733792) 77 U/L 13-40 H Lab Interpretation (test cod e = 04648-7) Abnormal [facility] (45426[facility] (ALB,T.PRO,BILI T,BU/BC,ALT,AST,ALK PHOS)2021-01-27 06:43:32* Test Item Value Reference Range Interpretation Comme nts TOTAL BILI (test code = 0679262638) 0.3 mg/dL 0.1-1.1 BILI UNCON (test code = 4199138214) 0.1 mg/dL 0.1-1.1 BILI CONJ (test code = 5971540200) 0.0 mg/dL 0.0-0.3 T PROTEIN (test code = 1879739680) 7.0 g/dL 6.3-8.2 ALBUMIN (test code = 4158756115) 3.8 g/dL 3.5-5.0 ALK PHOS (test code = 0657129994) 114 U/L 34-122 ALTv (test code = 1742-6) 16 U/L 5-35 AST(SGOT) (test code = 3357259875) 77 U/L 13-40 H Lab Interpretation (test cod e = 32970-5) Abnormal [facility] 1 [id number] 06:12:38No acute cardiopulmonary process. RL: [id number]: [id number] Patient name: FLORES MCCARTHYB: 1990 30 years [...] 01/27/2021 1:13 AM CDT Patient name: FLORES SMITHB: 1990 30 years EXAMINATION: XR CHEST 1 VWOrdering Physician: ROSENDO VANCE CLINICAL HISTORY:fever COMPARISON:NoneTECHNIQUE:Single frontal view of the chest was performed. The technique of thisexamination is adequate.FINDINGS:Normal lung volumes. No focal infiltrate or consolidation. No effusion orpneumothorax. Heart size is normal without edema. Normal aortic contours.No acute osseous abnormality.IMPRESSIONNo acute cardiopulmonary process.RL: [id number]: [id number] signed by Maxime Bolaños at 01/27/2021 1:12 AM[facility] CHEST 1 [id number] 06:12:38No acute cardiopulmonary process. RL: [id number]: [id number] Patient name: FLORES GREGORY: 1990 30 years [...] acute osseous abnormality.IMPRESSIONNo acute cardiopulmonary process.RL: [id number]: [id number] signed by Maxime Bolaños at 01/27/2021 1:12 AMUnUT [facility] HospitalLaflic Acid Whole [id number] 05:56:59* Test Item Value Reference Range Interpretation Comme nts LACTIC ACID (test code = 7766751562) 1.65 mmol/L 0.50-2.20 Lab Interpretation (test cod e = 77333-2) [facility] [id number] 05:56:59* Test Item Value Reference Range Interpretation Comme nts LACTIC ACID (test code = 7267223450) 1.65 mmol/L 0.50-2.20 Lab Interpretation (test cod e = 11857-6) Normal [facility]- (ID NOW RAPID TESTING)2021-01-27 04:56:37* Test Item Value Reference Range Interpretation Comme nts SARS-CoV-2 Rapid ID NOW (test code = 88244-4) Positive Not Detected A ASHLEE (test code = ASHLEE) ID NOW COVID-19 As say is an isothermal nucleic acid amplification test intended for the qualitative detection of nucleic acid from SARS-CoV-2 viral RNA in nasopharyngeal (COPYIST) specimens. It is used under Emergency Use [...] clinically indicated. Lab Interpretation (test code = 66881-3) Abnormal [facility]- (ID NOW RAPID TESTING)2021-01-27 04:56:37* Test Item Value Reference Range Interpretation Comme nts SARS-CoV-2 Rapid ID NOW (test code = 43170-9) Positive Not Detected A ASHLEE (test code = ASHLEE) ID NOW COVID-19 As say is an isothermal nucleic acid amplification test intended for the qualitative detection of nucleic acid from SARS-CoV-2 viral RNA in nasopharyngeal (COPYIST) specimens. It is used under Emergency Use [...] clinically indicated. Lab Interpretation (test code = 03837-4) Abnormal [facility] METABOLIC PANEL (NA, K, CL, CO2, GLUCOSE, BUN, CREATININE, CA)2021-01-27 02:53:47* Test Item Value Reference Range Interpretation Comme nts NA (test code = 5504408632) 140 mmol/L 135-145 K (test code = 4022359141) 3.6 mmol/L 3.5-5.0 CL (test code = 3000936766) 101 mmol/L 98-108 CO2 TOTAL (test code = 3868506375) 31 mmol/L 23-31 AGAP (test code = 0660397936) 2-16 BUN (test code = 0982613395) 6 mg/dL 7-23 L GLUCOSE (test code = 6475976075) 130 mg/dL 70-110 H CREATININE (test code = 5941337087) 0.49 mg/dL 0.50-1.04 L CALCIUM (test code = 1411362535) 9.4 mg/dL 8.6-10.6 eGFR (test code = 4511577995) mL/min/1.73m2 ASHLEE (test code = ASHLEE) Association [...] imaging tests). Lab Interpretation (test code = 55440-5) Abnormal [facility] METABOLIC PANEL (NA, K, CL, CO2, GLUCOSE, BUN, CREATININE, CA)2021-01-27 02:53:47* Test Item Value Reference Range Interpretation Comme nts NA (test code = 1267779445) 140 mmol/L 135-145 K (test code = 7242351515) 3.6 mmol/L 3.5-5.0 CL (test code = 1307112177) 101 mmol/L 98-108 CO2 TOTAL (test code = 3321325427) 31 mmol/L 23-31 AGAP (test code = 2403719316) 2-16 BUN (test code = 4120729586) 6 mg/dL 7-23 L GLUCOSE (test code = 2939316380) 130 mg/dL 70-110 H CREATININE (test code = 9895958564) 0.49 mg/dL 0.50-1.04 L CALCIUM (test code = 3777518161) 9.4 mg/dL 8.6-10.6 eGFR (test code = 5446388983) mL/min/1.73m2 ASHLEE (test code = ASHLEE) Association [...] imaging tests). Lab Interpretation (test code = 39345-3) Abnormal [facility] WITH [id number] 02:42:45* Test Item Value Reference Range Interpretation Comme nts WBC (test code = 6690-2) See_Comment [Automated [employer]] The system which generated this result transmitted reference range: 4.30 - 11.10 10*3/?L. The reference range was not used to interpret this result as normal/abnormal. RBC (test code = 789-8) See_Comment L [Automated [employer]] The system which generated this result transmitted [...] g/dL 31.6-35.1 L RDW-SD (test code = 65054-6) 43.4 fL 39.0-49.9 RDW-CV (test code = 788-0) 14.1 % 12.0-15.5 PLT (test code = 777-3) See_Comment [Automated messa ge] The system which generated this result transmitted reference range: 166 - 358 10*3/?L. The reference range was not used to interpret this result as normal/abnormal. MPV (test code = 86900-1) 10.8 fL 9.5-12.9 NRBC/100 WBC (test code = 1960205345) See_Comment [Automated [employer]] The system which generated this result transmitted reference range: 0.0 - 10.0 /100 WBCs. The reference range was not used to interpret this result as normal/abnormal. NRBC x10^3 (test code = 0330100104) <0.01 See_Comment [Automated messa ge] The system which generated this result transmitted reference range: 10*3/?L. The reference range was not used to interpret this result as normal/abnormal. GRAN MAT (NEUT) % (test code = 770-8) 70.5 % IMM GRAN % (test code = 8083336575) 0.60 % LYMPH % (test code = 736-9) 19.5 % MONO % (test code = 5905-5) 5.6 % EOS % (test code = 713-8) 3.4 % BASO % (test code = 706-2) 0.4 % GRAN MAT x10^3(ANC) (test code = 0954741380) 7.35 10*3/uL 1.88-7.09 H IMM GRAN x10^3 (test code = 5967731055) 0.06 10*3/uL 0.00-0.06 LYMPH x10^3 (test code = 731-0) 2.03 10*3/uL 1.32-3.29 MONO x10^3 (test code = 742-7) 0.58 10*3/uL 0.33-0.92 EOS x10^3 (test code = 711-2) 0.35 10*3/uL 0.03-0.39 BASO x10^3 (test code = 704-7) 0.04 10*3/uL 0.01-0.07 Lab Interpretation (test code = 08484-7) Abnormal [facility] WITH [id number] 02:42:45* Test Item Value Reference Range Interpretation [...] g/dL 31.6-35.1 L RDW-SD (test code = 02760-9) 43.4 fL 39.0-49.9 RDW-CV (test code = 788-0) 14.1 % 12.0-15.5 PLT (test code = 777-3) See_Comment [Automated messa ge] The system which generated this result transmitted reference range: 166 - 358 10*3/?L. The reference range was not used to interpret this result as normal/abnormal. MPV (test code = 44795-1) 10.8 fL 9.5-12.9 NRBC/100 WBC (test code = 5451294513) See_Comment [Automated me ssage] The system which generated this result transmitted reference range: 0.0 - 10.0 /100 WBCs. The reference range was not used to interpret this result as normal/abnormal. NRBC x10^3 (test code = 6810850369) <0.01 See_Comment [Automated messa ge] The system which generated this result transmitted reference range: 10*3/?L. The reference range was not used to interpret this result as normal/abnormal. GRAN MAT (NEUT) % (test code = 770-8) 70.5 % IMM GRAN % (test code = 5160568736) 0.60 % LYMPH % (test code = 736-9) 19.5 % MONO % (test code = 5905-5) 5.6 % EOS % (test code = 713-8) 3.4 % BASO % (test code = 706-2) 0.4 % GRAN MAT x10^3(ANC) (test code = 2114296585) 7.35 10*3/uL 1.88-7.09 H IMM GRAN x10^3 (test code = 1477997880) 0.06 10*3/uL 0.00-0.06 LYMPH x10^3 (test code = 731-0) 2.03 10*3/uL 1.32-3.29 MONO x10^3 (test code = 742-7) 0.58 10*3/uL 0.33-0.92 EOS x10^3 (test code = 711-2) 0.35 10*3/uL 0.03-0.39 BASO x10^3 (test code = 704-7) 0.04 10*3/uL 0.01-0.07 Lab Interpretation (test code = 25797-2) Abnormal [facility] [id number] 02:30:00* Test Item Value Reference Range Interpretation Comme nts POCT PREG (test code = 1605) negative On board controls acceptable with C Line (test code = 3574) present POCT PREG LOT # (test code = 3575) [id number] POCT PREG TEST DATE ( test code = 3576) 07/27/2022 Lab Interpretation (test cod e = 72958-3) Normal [facility] [id number] 02:30:00* Test Item Value Reference Range Interpretation Comme nts POCT PREG (test code = 1605) negative On board controls acceptable with C Line (test code = 3574) present POCT PREG LOT # (test code = 3575) [id number] POCT PREG TEST DATE ( test code = 3576) 07/27/2022 Lab Interpretation (test cod e = 50798-5) [facility] [id number] 02:23:17* Test Item Value Reference Range Interpretation Comme nts LACTIC ACID (test code = 7826917002) 3.15 mmol/L 0.50-2.20 H Lab Interpretation (test cod e = 00021-0) Abnormal [facility] Whole [id number] 02:23:17* Test Item Value Reference Range Interpretation Comme nts LACTIC ACID (test code = 1623990642) 3.15 mmol/L 0.50-2.20 H Lab Interpretation (test cod e = 81924-9) Abnormal [facility] [id number] 23:07:00* Test Item Value Reference Range Interpretation Comme nts POCT PREG (test code = 1605) Negative On board controls acceptable with C Line (test code = 3574) Yes POCT PREG LOT # (test code = 3575) POCT PREG TEST DATE ( test code = 3576) [facility] Notes Date/Time Note Provider Source 2023-12-12 00:00:00 [id number]/[id number] T00:00:00+ + +| Plan Activity | Plan Date |+ + +| Discussed healthy weight gain during . | 2023-09-20 |+ + +| Recommend daily exercise as part of a healthy lifestyle. | 2023-09-20 || May continue exercise that pt was already performing. | || Walking is encouraged and safe during . | || Discouraged exercise that has potential for trauma or impact. | |+ + +| Recommend diet high in fruits and vegetables, lean meats, low in fat and | 2023-09-20 || processed sugars. Monitor portion sizes. | || Additional 300 calories daily needed for . | |+ + +| Urine test | 2023-09-20 |+ + +| UPT positive | 2023-09-20 || Proof of provided to patient. | || Miscarriage precaution education | || Encouraged to continue PNV daily | || RTC for initial OB visit. Pt has eligibility appt next week. | || Patient verbalized understanding and agrees to treatment plan. | |+ + +| Educated the patient and reviewed information including appt follow up | 2023-10-03 || schedules | || Patient with increase nausea and vomiting | || RTO clinic 4 weeks | || Patient to start OTC PNV with DHEA and FOLATE | || Completed form verification | || Routine Labs ordered | || UDS | || HIV | || UA and UC | || 1 Gtt | || Schedule Dating U/S | |+ + +| see above | 2023-10-03 |+ + +| check Urine Trich, GC, CT | 2023-10-03 || Patient is without any symptoms. | |+ + +| Bhcg now and in 48 hrs | 2023-10-05 || Nothing in the vagina | || Patient given signs and symptoms of when to seek emergent care. | |+ + +| Discussed healthy weight gain during . | 2023-10-31 |+ + +| UA, UC, NIPT, 1 hr GTT, results pending | 2023-10-31 || Continue taking PNV daily. Start LDA daily. | || Miscarriage precautions. | || Referral to [facility] for AMA | || RTO 4 weeks OB f/u with Dr. Zee. | |+ + +| see above plan | 2023-10-31 |+ + +| Referral to [facility] | 2023-10-31 || Start LDA daily | |+ + +| see above plan | 2023-10-31 |+ + +| RTO NV for 3 hour GTT. Pt needs to be fasting 8-12 hours. | 2023-11-02 |+ + +| Start prednisone 20 mg tablet Take 1 tablet by mouth twice a day for 7 days | 2023-12-14 || Qvar RediHaler 40 mcg/actuation HFA breath Inhale 1 puff twice a day Rinse | || mouth with water without swallowing after each dose. | || benzonatate 100 mg capsule Take 1 capsule by mouth three times a day as needed | || for cough | || Albuterol HFA or nebulizer every 4 hours as needed for wheezing. | || Keep f/u appt with OB on Monday. | || ER precautions given. | |+ + +| Continue taking PNV daily. | 2023-12-14 || PTL precautions. | || RTO for scheduled f/u visit with Dr. Zee on Monday. | |+ + +| see above plan | 2023-12-14 |+ + +| see above plan | 2023-12-14 |+ + +| see above plan | 2023-12-14 |+ + +50908-2Nspi of TreatmentLNCARE PLANTXTSFA|[id number] for patient ireaQetfhlaVitotxogbGVJZw56 Section NarrativeNARRATIVEFormatted C-CDA narrative textSCarl Cuevas [facility]2024-04-18T00:00:00 [facility]
[2024-01-05] MEDS ORDERED: ACETAMINOPHEN 500 MG TAB ONE (15:57)
[2024-01-05] MEDS ORDERED: ONDANSETRON 4 MG (ODT) TAB ONE (16:04)
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
[2024-01-05 17:14] VITALS: BP 121/65; TEMP 98; O2SAT 100
== END 2024-01-05 16:54 | disposition home or self-care (01) ==
LOC: ER 15:47
DX: O9A.212 Injury, poisoning and certain other consequences of external causes complicating pregnancy, second trimester (principal); S06.0X0A Concussion without loss of consciousness, initial encounter; R51.9 Headache, unspecified; V49.49XA Driver injured in collision with other motor vehicles in traffic accident, initial encounter; Z3A.22 22 weeks gestation of pregnancy
CPT/HCPCS: 70450; 99284; Q0162

== ENCOUNTER 2024-01-30 17:18 | Emergency (ER) | payer SELFPAY ==
--- OUTSIDE RECORDS SUMMARY | 2024-01-30 17:24 | XMS REPORT | Continuity of Care Document ---
Author Name Unknown Address [address] [facility] [address] [place] [address] [facility] thconnect Address [address] [facility] 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 Name Role Phone Bryce Mary Lou GARDNER Primary Care Physician JOANIE VILLALOBOS Attending Clinician Unavail able HANH MCDONALD Attending Clinician Unavailable [facility] Res-1st Attending Clinician Unavailable Hanh Mcdonald MD Attending Clinician [phone] LAVON ROBB Attending Clinician Unavailable Lavon Robb MD Attending Clinician [phone] [facility] Attending Clinician Unavailable Wilfredo Joanie MENDIETA Attending Clinician + LEE ANN HUSSEIN Attending Clinician Unavailable Lee Ann Hussein MD Attending Clinician [phone] MISTY HOOKER Attending Clinician Unavailable Misty Tineo Attending Clinician [phone] WYATT HUGGINS Attending Clinician Unavailab OTILIA Ibrahim Attending Clinician Unavailable Otilia Ortiz Attending Clinician [phone] MARVA HOLCOMB Attending Clinician Unavailable Marva Holcomb MD Attending Clinician [phone] Eder RN, Elena Holm Attending Clinician [phone] Yaima Julio Attending Clinician [phone] Rosendo Vance MD Attending Clinician [phone] Mauro Pruitt MD Attending Clinician [phone] Visit, [facility] Nurse Attending Clinician Unava ilable Doctor Unassigned, [place] Attending Clinician U navailable LEE ANN HUSSEIN Admitting Clinician Unavailable MISTY HOOKER Admitting Clinician Unavailable OTILIA BRITTON Admitting Clinician Unavailable Madina CARD, Rosendo Admitting Clinician [phone] Payers Payer Name Policy Type Policy Number Effective Date Expirati on Date Source DEWAYNE MOM [employer] [id number] 2022 00:00:00 Problems Condition Name Condition Details Condition Category Status Onset Date Resolution Date Last Treatment Date Treating Clinician Comments Source Miscarriag e Miscarriag e Disease Active 09-26 00:00: 00 Overview: Formattin g of this note might be different from the original. Recent beta at [facility] [facility] Complete Complete Disease Active 09-26 00:00: 00 Overview: Formattin g of this note might be different from the original. Recent beta at [facility] [facility] Abnormal maternal glucose tolerance, antepartum Abnormal maternal glucose tolerance, antepartum Disease Active 09-23 00:00: 00 Overview: Formattin g of this note might be different from the original. Pending 3hr gtt [facility] Supervisio n of high-risk Supervisio n of high-risk Disease Active 09-21 00:00: 00 [facility] Vaginal bleeding during Vaginal bleeding during Disease Active 09-21 00:00: 00 [facility] Trichomona l vaginitis during Trichomona l vaginitis during Disease Active 09-21 00:00: 00 Overview: Formattin g of this note might be different from the original. Dx at the ED on meds, pending demi [facility] UTI in UTI in Disease Active 09-21 00:00: 00 Overview: Formattin g of this note might be different from the original. Dx at the ED on meds, pending demi [facility] Multiparit y Multiparit y Disease Active 09-21 00:00: 00 [facility] Cellulitis of right buttock Cellulitis of right buttock Disease Active - 00:00: 00 [facility] Obesity in Obesity in Disease Active 10-19 00:00: 00 [facility] Well woman exam Well woman exam Disease Active 10-19 00:00: 00 [facility] Contracept hermila management Contracept hermila management Disease Active 10-19 00:00: 00 [facility] Obesity (BMI 30-39.9) Obesity (BMI 30-39.9) Disease Active 10-19 00:00: 00 [facility] Contracept hermila management Contracept hermila management Disease Active 10-19 00:00: 00 [facility] Vaginal symptom Vaginal symptom Disease Active -15 00:00: 00 [facility] History of asthma History of asthma Disease Active 1-04 00:00: 00 [facility] Allergies, Adverse Reactions, Alerts Allergy Name Allergy Type Status Severity Reaction(s) Onset Date Inactive Date Treating Clinician Comments Source NO KNOWN ALLERGIE S Drug Class Active [facility] Social History Social Habit Start Date Stop Date Quantity Comments Source ASSERTION 2022-08-25 00:00:00 [facility] Alcohol intake 2022-10-13 00:00:00 2022-10-13 00:00:00 Current non-drinker of alcohol (finding) [facility] Exposure to SARS-CoV-2 (event) 2022-09-17 00:00:00 2022-09-27 08:53:00 Not sure [facility] Tobacco use and exposure 2022-09-21 00:00:00 2022-09-21 00:00:00 Smokeless tobacco non-user [facility] Sex Assigned At 1990 00:00:00 1990 00:00:00 [facility] Smoking Status Start Date Stop Date Source Never smoked tobacco [facility] Medications Ordered Medication Name Filled [...] tablet 12-11 00:00: 00 Yes 1mg Peter Lofton benzonatate 100 mg capsule 12-11 00:00: 00 Yes 1mg Peter Nick Lofton albuterol sulfate 2.5 mg/3 mL (0.083 %) solution for nebulizatio n 12-09 00:00: 00 Yes 1/3 mL (0.083 %) Peter Lofton aspirin 81 mg tablet,preston yed release 10-30 00:00: 00 Yes 1mg Peter Lofton TAKE 1 TABLET BY MOUTH EVERY 8 HOURS 12-06 00:00: 00 01-03 00:00 :00 No Peter Nick Lofton TAKE 1 TABLET BY MOUTH TWICE DAILY AFTER A MEAL 12-06 00:00: 00 01-03 00:00 :00 No Peter Nick Lofton ibuprofen (IBU) tablet 800 mg 09-27 16:30: 00 09-27 15:49 :00 No [id number] 800mg [facility] ibuprofen 600 mg tablet 09-27 00:00: 00 Yes [id number] 600mg Take 1 tablet by mouth every 6 (six) hours as needed (alternate with tylenol for pain) for up to 20 doses. [facility] ALBUTEROL SULFATE INHALE 09-21 14:43: 24 09-21 00:00 :00 No 1{puff} Inhale 1 Puff every 8 (eight) hours as needed for Other (Wheezing) . [facility] metroNIDAZO LE 500 mg tablet 09-20 00:00: 00 Yes TAKE 4 TABLETS BY MOUTH ONCE DAILY NOW FOR 1 DOSE [facility] Nitrofurant oin&Nit. Macrocryst (MACROBID) 100 mg capsule 09-20 00:00: 00 Yes [id number] 100mg Take 1 capsule by mouth 2 (two) times daily. [facility] NaCl 0.9% (NS) bolus infusion 1,000 mL 11-09 23:45: 00 11-10 01:15 :00 No 1000mL at 999 mL/hr, 1,000 mL, IV Infusion, ONCE, 1 dose, On Mon11/09/21 at 1845, [facility] ketorolac (TORADOL) injection 30 mg 11-09 23:45: 00 11-09 23:36 :00 No 30mg 30 mg, Slow IV Push, ONCE, 1 dose, On Mon11/09/21 at 1845, [facility] ondansetron (ZOFRAN (PF)) injection 4 mg 11-09 23:45: 00 11-09 23:36 :00 No 4mg 4 mg, Slow IV Push, ONCE, 1 dose, On Mon11/09/21 at 1845, [facility] benzonatate 100 mg capsule 11-09 00:00: 00 Yes [id number] 100mg Take 1 capsule by mouth 3 (three) times daily as needed for Cough. [facility] ondansetron (ZOFRAN) 4 mg tablet 11-09 00:00: 00 Yes [id number] 4mg Take 1 tablet by mouth every 8 (eight) hours as needed for Nausea and Vomiting (N/V). [facility] predniSONE 20 mg tablet 11-09 00:00: 00 11-15 04:59 :00 No [id number] 40mg Take 2 tablets by mouth daily for 5 days. [facility] ipratropium -albuteroL (DUONEB) 0.5 mg-3 mg(2.5 mg base)/3 mL nebulizer solution 3 mL 2020-08 09:30: 00 08-06 08:37 :00 No 3mL 3 mL, Inhalation , ONCE, 1 dose, On Mon08/06/21 at 0330, Routine [facility] dexamethaso ne (DECADRON PHOSPHATE) injection 10 mg 2020-08 09:30: 00 08-06 08:27 :00 No 10mg 10 mg, Oral, ONCE, 1 dose, On Mon08/06/21 at 0330, STAT [facility] ipratropium -albuteroL (DUONEB) 0.5 mg-3 mg(2.5 mg base)/3 mL nebulizer solution 3 mL 2020-08 07:45: 00 08-06 06:51 :00 No 3mL 3 mL, Inhalation , ONCE, 1 dose, On Mon08/06/21 at 0145, Routine [facility] predniSONE 50 mg tablet 2020-08 00:00: 00 Yes [id number] 50mg Take 1 tablet by mouth daily. [facility] albuterol 90 mcg/actuati on inhaler 2020-08 00:00: 00 Yes [id number] 2{puff} Inhale 2 Puffs every 4 (four) hours as needed for Wheezing or Shortness of Breath. [facility] albuterol 2.5 mg /3 mL (0.083 %) nebulizer solution 2020-08 00:00: 00 09-21 00:00 :00 No [id number] 2.5mg Inhale 3 mL every 4 (four) hours. May also nebulize one extra every 6 hours. [facility] ALBUTEROL SULFATE INHALE 02-16 21:27: 26 Yes 1{puff} Inhale 1 Puff every 8 (eight) hours as needed for Other (Wheezing) . [facility] ALBUTEROL SULFATE INHALE 02-16 16:27: 26 Yes 1{puff} Inhale 1 Puff every 8 (eight) hours as needed for Other (Wheezing) . [facility] ALBUTEROL SULFATE INHALE 01-29 17:25: 36 Yes 1{puff} Inhale 1 Puff every 8 (eight) hours as needed for Other (Wheezing) . [facility] KCL (KLOR-CON M20) tablet 40 mEq 01-29 15:30: 00 01-29 16:35 :00 No 40meq 40 mEq, Oral, ONCE, 1 dose, Mon01/29/21 at 1030, Routine [facility] morpHINE injection 2 mg 01-29 05:30: 00 01-29 04:25 :00 No 2mg 2 mg, Slow IV Push, ONCE, 1 dose, Mon01/29/21 at 0030, Routine [facility] acidophilus 100 million cell tablet 01-29 00:00: 00 Yes [id number] 1g Take 1 tablet by mouth 2 (two) times daily. [facility] sulfamethox azole-trime thoprim (BACTRIM DS) 800-160 mg per tablet 01-29 00:00: 00 02-06 04:59 :00 No [id number] 1{tbl} Take 1 tablet by mouth 2 (two) times daily for 7 days. [facility] ALBUTEROL SULFATE INHALE 01-28 14:37: 52 Yes 1{puff} Inhale 1 Puff every 8 (eight) hours as needed for Other (Wheezing) . [facility] albuterol (PROVENTIL) 2.5 mg /3 mL (0.083 %) nebulizer solution 2.5 mg 01-28 14:37: 36 Yes 2.5mg 2.5 mg, Inhalation , Q6HPRN, Starting Poppy 01/28/21 at 0937, Until Discontinu ed, Shortness of Breath, Wheezing [facility] morpHINE injection 2 mg 01-28 13:17: 25 01-28 21:16 :25 No 2mg 2 mg, Slow IV Push, Q6HPRN, Starting Poppy 01/28/21 at 0817, Until Poppy 01/28/21 at 1616, Routine, Pain (scale 7-10) [facility] ketorolac (TORADOL) injection 30 mg 01-27 22:08: 51 01-27 22:09 :00 No 30mg 30 mg, Slow IV Push, PRN, 1 dose, Starting Mon01/27/21 at 1708, Until Mon01/27/21 at 1709, Routine, Pain (scale 4-6), PACU
[facility] member approving Restricted medication : MAURO PRUITT [facility] enoxaparin (LOVENOX) injection 40 mg 01-27 22:00: 00 Yes 40mg 40 mg, Subcutaneo us, DAILY, First dose on Mon01/27/21 at 1700, Until Discontinu ed, Routine [facility] morpHINE injection 2 mg 01-27 21:45: 35 01-27 22:22 :02 No 2mg 2 mg, Slow IV Push, Q5MIN PRN, 5 doses, Starting Mon01/27/21 at 1645, Until Mon01/27/21 at 1722, Routine, Pain (scale 4-6), PACU [facility] HYDROcodone -acetaminop hen (NORCO) 10-325 mg tablet 1 tablet 01-27 21:34: 03 Yes 1{tbl} 1 tablet, Oral, Q6HPRN, Starting Mon01/27/21 at 1634, Until Discontinu ed, Routine, Pain (scale 4-6) [facility] HYDROcodone -acetaminop hen (NORCO 5) 5-325 mg tablet 1 tablet 01-27 21:33: 48 Yes 1{tbl} 1 tablet, Oral, Q6HPRN, Starting Mon01/27/21 at 1633, Until Discontinu ed, Routine, Pain (scale 1-3) [facility] PHENYLephri ne 1000 mcg/10 mL in 0.9% NaCl syringe 01-27 21:16: 00 01-27 21:36 :50 No Slow IV Push, ONCE INTRA PROCEDURE, Starting Mon01/27/21 at 1616, Until Mon01/27/21 at 1636, Routine, Intra-op [facility] ondansetron (ZOFRAN (PF)) injection 01-27 21:14: 00 01-27 21:36 :50 No Slow IV Push, ONCE INTRA PROCEDURE, Starting Mon01/27/21 at 1614, Until Mon01/27/21 at 1636, Routine, Intra-op [facility] dexamethaso ne (DECADRON PHOSPHATE) injection 01-27 21:12: 00 01-27 21:36 :50 No IV Push, ONCE INTRA PROCEDURE, Starting Mon01/27/21 at 1612, Until Mon01/27/21 at 1636, Routine, Intra-op [facility] lidocaine 1% (XYLOCAINE) 100 mg/10 mL (1 %) injection 01-27 21:07: 00 01-27 21:36 :50 No Intravenou s, ONCE INTRA PROCEDURE, Starting Mon01/27/21 at 1607, Until Mon01/27/21 at 1636, Routine, Intra-op [facility] propofoL IV infusion 01-27 21:07: 00 01-27 21:36 :50 No Intravenou s, ONCE INTRA PROCEDURE, Starting Mon01/27/21 at 1607, Until Mon01/27/21 at 1636, Routine, Intra-op [facility] FENTanyl PF (SUBLIMAZE (PF)) injection 01-27 21:07: 00 01-27 21:36 :50 No Intravenou s, ONCE INTRA PROCEDURE, Starting Mon01/27/21 at 1607, Until Mon01/27/21 at 1636, Routine, Intra-op [facility] midazolam (VERSED) injection 01-27 20:57: 00 01-27 21:36 :50 No IV Push, ONCE INTRA PROCEDURE, Starting Mon01/27/21 at 1557, Until Mon01/27/21 at 1636, Routine, Intra-op [facility] lactated ringers IV infusion 01-27 20:57: 00 01-27 21:36 :50 No IV Infusion, CONTINUOUS PRN, Starting Mon01/27/21 at 1557, Until Mon01/27/21 at 1636, Routine, Intra-op [facility] vancomycin 1500 mg in NS 500 mL IV Piggyback RTU 1,500 mg 01-27 16:00: 00 Yes 1500mg 1,500 mg, IV Infusion, Q12H ABX, First dose on Mon01/27/21 at 1100, Until Discontinu ed
Reas on for Anti-Infec tive: Documented Infection< br>Documen mariah Infection Site: Skin / Soft Tissue
Duration of Therapy: 10 days [facility] piperacilli n-tazobacta m (ZOSYN) 3.375 g in NaCl 0.9% (NS) 100 mL MINI-BAG 01-27 13:00: 00 Yes 3.375g 3.375 g, IV Piggyback, Q6H ABX, First dose (after last reorder) on Mon01/27/21 at 0800, Until Discontinu ed, 100 mL
Reas on for Anti-Infec tive: Documented Infection< br>Documen mariah Infection Site: Skin / Soft Tissue
Duration of Therapy: Other (see Comments) [facility] NaCl 0.9% (NS) IV infusion 1,000 mL 01-27 11:45: 00 01-28 13:18 :05 No 1000mL at 125 mL/hr, IV Infusion, CONTINUOUS , Starting Mon01/27/21 at 0645, Until Poppy 01/28/21 at 0818, Routine [facility] NaCl 0.9% (NS) IV infusion 2,000 mL 01-27 07:15: 00 01-27 07:36 :00 No 2000mL at 125 mL/hr, IV Infusion, ONCE, 1 dose, Mon01/27/21 at 0215, Routine [facility] ondansetron (ZOFRAN (PF)) injection 4 mg 01-27 06:12: 31 Yes 4mg 4 mg, Slow IV Push, Q6HPRN, Starting Mon01/27/21 at 0112, Until Discontinu ed, Routine, Nausea and Vomiting (N/V) [facility] morpHINE injection 2 mg 01-27 06:12: 24 01-27 21:34 :15 No 2mg 2 mg, Slow IV Push, Q4HPRN, Starting Mon01/27/21 at 0112, Until Mon01/27/21 at 1634, Routine, Pain (scale 7-10) [facility] piperacilli n-tazobacta m (ZOSYN) 3.375 g in NaCl 0.9% (NS) 100 mL MINI-BAG 01-27 04:15: 00 01-27 03:40 :00 No 3.375g 3.375 g, IV Piggyback, ONCE, 1 dose, 01/26/21 at 2315, 100 mL
Reas on for Anti-Infec tive: Documented Infection< br>Documen mariah Infection Site: Skin / Soft Tissue
Duration of Therapy: Other (see Comments) [facility] vancomycin (VANCOCIN) 1,000 mg in NaCl 0.9% (NS) 250 mL VIAL-MATE IV piggyback 01-27 04:00: 00 01-27 04:57 :00 No 1000mg 1,000 mg, IV Piggyback, ONCE, 1 dose, 01/26/21 at 2300, 250 mL
Reas on for Anti-Infec tive: Documented Infection< br>Documen mariah Infection Site: Skin / Soft Tissue
Duration of Therapy: Other (see Comments) [facility] iopamidol (ISOVUE 370-500 mL) injection 120 mL 01-27 04:00: 00 01-27 02:50 :00 No [id number] 120mL 120 mL, Intravenou s, ONCE, 1 dose, 01/26/21 at 2300, Routine [facility] NaCl 0.9% (NS) bolus infusion 1,000 mL 01-27 03:45: 00 01-27 03:57 :00 No 1000mL at 999 mL/hr, 1,000 mL, IV Infusion, ONCE, 1 dose, 01/26/21 at 2245, STAT [facility] ondansetron (ZOFRAN (PF)) injection 4 mg 01-27 03:30: 00 01-27 02:19 :00 No 4mg 4 mg, Slow IV Push, ONCE, 1 dose, 01/26/21 at 2230, MICHAELA [facility] morpHINE injection 4 mg 01-27 03:30: 00 01-27 02:18 :00 No 4mg 4 mg, Slow IV Push, ONCE, 1 dose, 01/26/21 at 2230, STAT [facility] medroxyPROG ESTERone (DEPO-PROVE RA) injection 150 mg 10-19 18:00: 00 09-20 17:59 :00 No [id number] 150mg 150 mg, Intramuscu lar, [id number], 4 doses, First dose on Mon10/19/18 at 1200, Last dose on Mon06/28/19 at 1200, Routine [facility] albuterol 2.5 mg/0.5 mL nebulizer solution 10-25 00:00: 00 Yes 2.5mg Use 0.5 mL as directed every 6 (six) hours as needed for Wheezing. [facility] Vital Signs Vital Name Observation Time Observation Value Comments S ource Systolic blood pressure 2022-09-27 14:52:00 107 mm[Hg] [facility] Diastolic blood pressure 2022-09-27 14:52:00 78 mm[Hg] [facility] Heart rate 2022-09-27 14:52:00 66 /min [facility] Body temperature 2022-09-27 14:52:00 36.78 Brisa [facility] Respiratory rate 2022-09-27 14:52:00 18 /min [facility] Body height 2022-09-27 14:52:00 152.4 cm [facility] Body weight 2022-09-27 14:52:00 82.101 kg [facility] BMI 2022-09-27 14:52:00 35.35 kg/m2 [facility] Systolic blood pressure 2022-09-21 20:36:00 118 mm[Hg] [facility] Diastolic blood pressure 2022-09-21 20:36:00 78 mm[Hg] [facility] Heart rate 2022-09-21 20:36:00 104 /min [facility] Body temperature 2022-09-21 20:36:00 36.61 Brisa [facility] Respiratory rate 2022-09-21 20:36:00 18 /min [facility] Body height 2022-09-21 20:36:00 152.4 cm [facility] Body weight 2022-09-21 20:36:00 82.725 kg [facility] BMI 2022-09-21 20:36:00 35.62 kg/m2 [facility] Systolic blood pressure 2022-09-20 22:20:00 124 mm[Hg] [facility] Diastolic blood pressure 2022-09-20 22:20:00 79 mm[Hg] [facility] Heart rate 2022-09-20 22:20:00 69 /min [facility] Respiratory rate 2022-09-20 22:20:00 18 /min [facility] Oxygen saturation in Arterial blood by Pulse oximetry 2022-09-20 22:20:00 98 /min [facility] Body temperature 2022-09-20 14:24:00 36.72 Brisa [facility] Body height 2022-09-20 14:24:00 152.4 cm [facility] Body weight 2022-09-20 14:24:00 81.647 kg [facility] BMI 2022-09-20 14:24:00 35.15 kg/m2 [facility] Heart rate 2021-11-10 01:00:00 91 /min [facility] Body temperature 2021-11-10 01:00:00 37.94 [facility] Oxygen saturation in Arterial blood by Pulse oximetry 2021-11-10 01:00:00 99 /min [facility] Systolic blood pressure 2021-11-10 00:31:00 104 mm[Hg] [facility] Diastolic blood pressure 2021-11-10 00:31:00 68 mm[Hg] [facility] Respiratory rate 2021-11-10 00:31:00 18 /min [facility] Body height 2021-11-09 22:23:00 157.5 cm [facility] Body weight 2021-11-09 22:23:00 72.576 kg [facility] BMI 2021-11-09 22:23:00 29.26 kg/m2 [facility] Systolic blood pressure 2021-08-06 10:41:00 116 mm[Hg] [facility] Diastolic blood pressure 2021-08-06 10:41:00 79 mm[Hg] [facility] Heart rate 2021-08-06 10:41:00 88 /min [facility] Respiratory rate 2021-08-06 10:41:00 22 /min [facility] Oxygen saturation in Arterial blood by Pulse oximetry 2021-08-06 10:41:00 97 /min [facility] Body temperature 2021-08-06 06:47:00 37.33 Brisa [facility] Body height 2021-08-06 06:47:00 149.9 cm [facility] Body weight 2021-08-06 06:47:00 83.915 kg [facility] BMI 2021-08-06 06:47:00 37.37 kg/m2 [facility] Systolic blood pressure 2021-02-16 21:26:00 125 mm[Hg] [facility] Diastolic blood pressure 2021-02-16 21:26:00 87 mm[Hg] [facility] Heart rate 2021-02-16 21:26:00 80 /min [facility] Body temperature 2021-02-16 21:26:00 36.33 Brisa [facility] Respiratory rate 2021-02-16 21:26:00 16 /min [facility] Body weight 2021-02-16 21:26:00 81.194 kg [facility] BMI 2021-02-16 21:26:00 36.09 kg/m2 [facility] Oxygen saturation in Arterial blood by Pulse oximetry 2021-02-16 21:26:00 99 /min [facility] Systolic blood pressure 2021-01-29 16:17:00 112 mm[Hg] [facility] Diastolic blood pressure 2021-01-29 16:17:00 79 mm[Hg] [facility] Body temperature 2021-01-29 16:17:00 36.72 Brisa [facility] Respiratory rate 2021-01-29 16:17:00 18 /min [facility] Oxygen saturation in Arterial blood by Pulse oximetry 2021-01-29 16:17:00 100 /min [facility] Heart rate 2021-01-29 14:00:00 77 /min [facility] Body weight 2021-01-28 08:45:00 84.959 kg [facility] BMI 2021-01-28 08:45:00 37.76 kg/m2 [facility] Body height 2021-01-27 20:48:00 150 cm [facility] Body height 2021-01-27 20:48:00 150 cm [facility] Body weight 2021-01-27 20:48:00 86.2 kg [facility] BMI 2021-01-27 20:48:00 37.76 kg/m2 [facility] Systolic blood pressure 2021-01-27 20:05:00 108 mm[Hg] [facility] Diastolic blood pressure 2021-01-27 20:05:00 67 mm[Hg] [facility] Heart rate 2021-01-27 20:05:00 90 /min [facility] Body temperature 2021-01-27 20:05:00 36.67 Brisa [facility] Respiratory rate 2021-01-27 20:05:00 20 /min [facility] Oxygen saturation in Arterial blood by Pulse oximetry 2021-01-27 20:05:00 100 /min [place] [facility] Systolic blood pressure 2019-04-22 19:06:00 130 mm[Hg] [place] [facility] Diastolic blood pressure 2019-04-22 19:06:00 82 mm[Hg] [place] [facility] Heart rate 2019-04-22 19:06:00 84 /min [facility] Body temperature 2019-04-22 19:06:00 36 Brisa [facility] Respiratory rate 2019-04-22 19:06:00 16 /min [facility] Body height 2019-04-22 19:06:00 152.4 cm [facility] Body weight 2019-04-22 19:06:00 85.503 kg [facility] BMI 2019-04-22 19:06:00 36.81 kg/m2 [facility] BP Systolic 2024-01-12 10:22:00 116 mm[Hg] Step hen F Rolly BP Diastolic 2024-01-12 10:22:00 73 mm[Hg] Sameer phen F Rolly Weight Measured 2024-01-12 10:22:00 191.80 pounds Peter F Rolly Height Measured 2024-01-12 10:22:00 61.00 inches Peter F Rolly Body Temperature 2024-01-12 10:22:00 98.20 degrees Peter F Rolly Heart Rate 2024-01-12 10:22:00 80.00 /min Aparna en F Rolly Respiratory Rate 2024-01-12 10:22:00 18.00 /min Peter F Rolly BP Systolic 2023-12-27 13:41:00 113 mm[Hg] Step hen F Rolly BP Diastolic 2023-12-27 13:41:00 76 mm[Hg] Sameer phen F Rolly Weight Measured 2023-12-27 13:41:00 188.80 pounds Peter F Rolly Height Measured 2023-12-27 13:41:00 61.00 inches Peter F Rolly Body Temperature 2023-12-27 13:41:00 98.10 degrees Pteer F Rolly Heart Rate 2023-12-27 13:41:00 91.00 /min Aparna en F Rolly Respiratory Rate 2023-12-27 13:41:00 Peter F Rolly BP Systolic 2023-12-15 11:09:00 115 mm[Hg] Step hen F Rolly BP Diastolic 2023-12-15 11:09:00 79 mm[Hg] Sameer phen F Rolly Weight Measured 2023-12-15 11:09:00 183.80 pounds Peter F Rolly Height Measured 2023-12-15 11:09:00 61.00 inches Peter F Rolly Body Temperature 2023-12-15 11:09:00 98.50 degrees Peter F Rolly Heart Rate 2023-12-15 11:09:00 88.00 /min Aparna en F Rolly Respiratory Rate 2023-12-15 11:09:00 18.00 /min Peter F Rolly BP Systolic 2023-12-12 17:12:00 117 mm[Hg] Step hen F Rolly BP Diastolic 2023-12-12 17:12:00 74 mm[Hg] Sameer phen F Rolly Weight Measured 2023-12-12 17:12:00 183.40 pounds Peter F Rolly Height Measured 2023-12-12 17:12:00 61.00 inches Epter F Rolly Body Temperature 2023-12-12 17:12:00 98.10 degrees Peter F Rolly Heart Rate 2023-12-12 17:12:00 75.00 /min Aparna en F Rolly Respiratory Rate 2023-12-12 17:12:00 Peter F Rolly Heart Rate 2023-10-31 08:49:00 81.00 /min Aparna en F Rolly Respiratory Rate 2023-10-31 08:49:00 18.00 /min Peter F Rolly BP Systolic 2023-10-31 08:49:00 105 mm[Hg] Step hen F Rolly BP Diastolic 2023-10-31 08:49:00 72 mm[Hg] Sameer phen F Rolly Weight Measured 2023-10-31 08:49:00 174.80 pounds Peter F Rolly Height Measured 2023-10-31 08:49:00 61.00 inches Peter F Rolly Body Temperature 2023-10-31 08:49:00 98.30 degrees Peter F Rolly BP Systolic 2023-10-05 11:40:00 [...] Performing Clinician Source POCT TEST 2022-09-27 15:38:00 Christiane ames [facility] POCT TEST 2022-09-27 00:00:00 Christiane ames [facility] GLUCOSE 1 HOUR POST PRANDIAL 2022-09-22 15:21:00 Joanie Villalobos [facility] TOTAL BETA HCG ASSAY 2022-09-21 21:30:00 Sedrick Villalobos [facility] CBC WITH DIFF 2022-09-21 21:30:00 Joanie Villalobos [facility] HEPATITIS B SURFACE ANTIGEN 2022-09-21 21:30:00 Joanie Villalobos [facility] HCV ANTIBODY 2022-09-21 21:30:00 Joanie Villalobos [facility] HB ABO GROUPING 2022-09-21 21:30:00 Joanie Villalobos [facility] HIV 1/2 AG-AB WITH REFLEX 2022-09-21 21:30:00 Joanie Villalobos [facility] PAP SMEAR-LIQUID BASED-CP 2022-09-21 21:30:00 Joanie Villalobos [facility] POCT TEST 2022-09-21 20:29:00 Jorge Villalobos [facility] POCT URINALYSIS W/O SPECIFIC GRAVITY 2022-09-21 20:29:00 Joanie Villalobos [facility] ADC CLC OR LCC ONLY - WET PREP 2022-09-20 22:24:00 Leeanna Naranjo [facility] US FIRST TRIMESTER LESS THAN 14 WEEKS WITH TRANSVAGINAL 2022-09-20 20:12:04 [facility] URINALYSIS 2022-09-20 15:15:00 [facility] LIPASE 2022-09-20 15:11:00 Lee [facility] Hussein [facility] TEST, SERUM 2022-09-20 15:11:00 Itz Hussein [facility] COMP. METABOLIC PANEL ([id number]) 2022-09-20 15:11:00 Lee Ann Hussein [facility] TOTAL BETA HCG ASSAY 2022-09-20 15:11:00 Lexie Hussein [facility] CBC WITH DIFF 2022-09-20 15:11:00 Lee Ann Hussein [facility] PROTHROMBIN TIME / INR 2022-09-20 15:11:00 Tristen Hussein [facility] ACTIVATED PARTIAL THRMPLAS FLORA 2022-09-20 15:11:00 Lee Ann Hussein [facility] CONSENT/REFUSAL FOR DIAGNOSIS AND TREATMENT 2022-09-20 14:05:15 Doctor Unassigned, [place] [facility] XR CHEST 1 VW 2021-11-09 23:31:00 Misty Hooker [facility] CBC WITH DIFF 2021-11-09 23:31:00 Misty Hooker [facility] POCT TEST 2021-11-09 23:21:00 Talya Hooker [facility] URINALYSIS 2021-11-09 23:19:00 [facility] 2021-11-09 23:19:00 Talya Hooker [facility] COVID-19 (ID NOW RAPID TESTING) 2021-11-09 23:19:00 Misty Hooker [facility] LIPASE 2021-11-09 23:13:00 Walter [facility] COMP. METABOLIC PANEL ([id number]) 2021-11-09 23:13:00 Misty Hooker [facility] NOTICE OF PRIVACY PRACTICES 2021-11-09 22:13:35 Doctor Unassigned, [place] [facility] CONSENT/REFUSAL FOR DIAGNOSIS AND TREATMENT 2021-11-09 22:13:21 Doctor Unassigned, [place] [facility] XR CHEST 1 VW 2021-08-06 09:20:00 Otilia Britton [facility] RAPID INFLUENZA A/B 2021-08-06 08:25:00 Otilia Britton [facility] COVID-19 (ID NOW RAPID TESTING) 2021-08-06 08:25:00 Otilia Britton [facility] BASIC METABOLIC PANEL (NA, K, CL, CO2, GLUCOSE, BUN, CREATININE, CA) 2021-01-29 10:37:00 Valeria Jin [facility] CBC WITH DIFF 2021-01-29 10:37:00 [facility] 2021-01-29 03:57:00 Leeroy Mae [facility] BASIC METABOLIC PANEL (NA, K, CL, CO2, GLUCOSE, BUN, CREATININE, CA) 2021-01-28 10:27:00 Edionqamar [facility] CBC WITH DIFF 2021-01-28 10:27[facility]OLIC PANEL (NA, K, CL, CO2, GLUCOSE, BUN, CREATININE, CA) 2021-01-28 10:27:00 Edionwe, [facility] CBC WITH DIFF 2021-01-28 10:27[facility]00 [facility] 2021-01-27 21:23:47 [facility] OR ABSCESS CULTURE(AEROBIC/ANAEROBIC) 2021-01-27 21:22:56 Marva Holcomb [facility] ASPIRATE OR ABSCESS CULTURE(AEROBIC/ANAEROBIC) 2021-01-27 21:22:56 Marva Holcomb [facility] INCISION AND DRAINAGE BUTTOCK 2021-01-27 20:50:00 Zhang Marva [facility] INCISION AND DRAINAGE BUTTOCK 2021-01-27 20:50:00 Zhang [facility] XR CHEST 1 VW 2021-01-27 05:56:15 Madina [facility] XR CHEST 1 VW 2021-01-27 05:56[facility] 2021-01-27 05:47:00 Jon Britton [facility] LACTIC ACID WHOLE BLOOD 2021-01-27 05:47:00 Jon Britton [facility] COVID-19 (ID NOW RAPID TESTING) 2021-01-27 04:33:00 Otilia Britton [facility] COVID-19 (ID NOW RAPID TESTING) 2021-01-27 04:33:00 Otilia Britton [facility] CT PELVIS W CONTRAST 2021-01-27 02:56:37 Otilia Britton [facility] CT PELVIS W CONTRAST 2021-01-27 02:56:37 Otilia Britton [facility] POCT TEST 2021-01-27 02:30:00 Otilia Britton [facility] POCT TEST 2021-01-27 02:30:00 Otilia Britton [facility] BLOOD CULTURE SCREEN 2021-01-27 02:20:00 Otilia Britton [facility] BLOOD CULTURE SCREEN 2021-01-27 02:20:00 Otilia Britton [facility] HEPATIC FUNCTION PANEL ([id number]) (ALB,T.PRO,BILI T,BU/BC,ALT,AST,ALK PHOS) 2021-01-27 02:09:00 [facility]OL[facility] (NA, K, CL, CO2, GLUCOSE, BUN, CREATININE, CA) 2021-01-27 02:09:00 Otilia Britton [facility] CBC WITH DIFF 2021-01-27 02:09:00 Otilia Britton [facility] LACTIC ACID WHOLE BLOOD 2021-01-27 02:09:00 Jon Britton [facility] HEPATIC FUNCTION PANEL ([id number]) (ALB,T.PRO,BILI T,BU/BC,ALT,AST,ALK PHOS) 2021-01-27 02:09:00 Madina [facility] BASIC METABOLIC PANEL (NA, K, CL, CO2, GLUCOSE, BUN, CREATININE, CA) 2021-01-27 02:09:00 Otilia Britton [facility] CBC WITH DIFF 2021-01-27 02:09:00 Otilia Britton [facility] LACTIC ACID WHOLE BLOOD 2021-01-27 02:09:00 Jon Britton [facility] BLOOD CULTURE SCREEN 2021-01-27 02:08:00 Otliia Britton [facility] BLOOD CULTURE SCREEN 2021-01-27 02:08:00 Otilia Britton [facility] CONSENT/REFUSAL FOR DIAGNOSIS AND TREATMENT 2021-01-27 01:14:15 Doctor Unassigned, [place] [facility] CONSENT/REFUSAL FOR DIAGNOSIS AND TREATMENT 2021-01-27 01:14:15 Doctor Unassigned, [place] [facility] NOTICE OF PRIVACY PRACTICES 2021-01-27 01:13:39 Doctor Unassigned, [place] [facility] NOTICE OF PRIVACY PRACTICES 2021-01-27 01:13:39 Doctor Unassigned, [place] [facility] POCT TEST 2019-04-22 23:07:00 Jorge Villalobos [facility] NO SHOW OR MISSED APPOINTMENT POLICY ACKNOWLEDGEMENT 2019-04-22 18:55:00 Doctor Unassigned, [place] [facility] Encounters Start Date/Time End Date/Time Encounter Type Admission Type Attending [facility] Care Department Encounter ID Source 2021-06-27 22:32:36 Emergency [facility] [id number] [facility] 2024-01-12 10:14:59 2024-01-12 10:14:[address] [facility] [id number] Peter Lofton 2024-01-12 00:00:00 2024-01-12 00:00:[address] [facility] [id number] Peter Lofotn 2023-12-27 13:31:36 2023-12-27 13:31:[address] [facility] [id number] Peter Lofton 2023-12-20 08:57:27 2023-12-20 08:57:27 Outpatient SFA SFA [id number] Peter Lofton 2023-12-15 11:09:28 2023-12-15 11:09:28 Outpatient SFA LEILANI [id number] Peter Lofton 2023-12-12 17:11:25 2023-12-12 17:11:25 Outpatient SFA SFA [id number] Peter Lofton 2023-12-12 00:00:00 2023-12-12 00:00:[address] [facility] [id number] Peter Lofton 2023-11-06 08:40:08 2023-11-06 08:40:08 Outpatient SFA SFA [id number] Peter Lofton 2023-10-31 08:41:42 2023-10-31 08:41:42 Outpatient SFA SFA [id number] Peter Lotfon 2023-10-27 16:36:05 2023-10-27 16:36:05 Outpatient SFA SFA [id number] Peter Lofton 2023-10-19 08:37:30 2023-10-19 08:37:30 Outpatient SFA SFA [id number] Peter Lofton 2023-10-07 09:40:05 2023-10-07 09:40:05 Outpatient SFA SFA [id number] Peter Lofton 2023-10-05 11:37:17 2023-10-05 11:37:17 Outpatient SFA SFA [id number] Peter Lofton 2023-09-27 14:30:58 2023-09-27 14:30:58 Outpatient SFA SFA [id number] Peter Romero Rolly 2023-09-20 09:14:08 2023-09-20 09:14:08 Outpatient SFA SFA [id number] Peter Lofton 2023-09-18 14:23:01 2023-09-18 14:23:01 Outpatient SFA SFA [id number] Peter Romero Rolly 2022-10-20 09:00:00 2022-10-20 09:00:00 Outpatient R JOANIE VILLALOBOS [facility] [id number] [facility] 2022-10-11 10:45:00 2022-10-11 15:58:23 Outpatient HANH ROBERTS [facility] [id number] [facility] 2022-10-11 10:45:00 2022-10-11 15:58:23 Telemedici ne Visit [facility] Res-1st Hanh Mcdonald [facility] 1.2.840.114 350.1.13.10 4.2.7.2.686 [id number] [facility] 2022-09-27 08:45:00 2022-09-27 09:49:09 Outpatient R LAVON ROBB [facility] [id number] [facility] 2022-09-27 08:45:00 2022-09-27 09:49:09 Routine Visit Trimester, [facility] Res-1st Lavon Robb L [facility] 1.2.840.114 350.1.13.10 4.2.7.2.686 [id number] [facility] 2022-09-26 08:15:00 2022-09-26 08:40:50 Outpatient R JOANIE VILLALOBOS [facility] [id number] [facility] 2022-09-26 08:15:00 2022-09-26 08:40:50 Medical Billing Assistant [facility] 1.2.840.114 350.1.13.10 4.2.7.2.686 [id number] [facility] 2022-09-23 00:00:00 2022-09-23 00:00:00 Telephone Joanie Villalobos [facility] 1.2.840.114 350.1.13.10 4.2.7.2.686 [id number] [facility] 2022-09-22 08:30:00 2022-09-22 08:30:00 Medical Billing Assistant Visit Lab, [facility] 1.2.840.114 350.1.13.10 4.2.7.2.686 [id number] [facility] 2022-09-22 08:30:00 2022-09-22 08:29:14 Outpatient R JOANIE VILLALOBOS [facility] [id number] [facility] 2022-09-21 14:15:00 2022-09-21 15:35:56 Outpatient R RAMIROKAYLEEJOANIE CABRERA [facility] [id number] [facility] 2022-09-21 14:15:00 2022-09-21 15:35:56 Initial Visit Joanie Villalobos [facility] [employer]ILD [facility] 1.2.840.114 350.1.13.10 4.2.7.2.686 [id number] [facility] 2022-09-20 08:20:00 2022-09-20 16:48:00 Emergency X LEE ANN HUSSEIN [facility] ERT [id number] [facility] 2022-09-20 08:20:00 2022-09-20 16:48:00 Emergency Lee Ann Hussein [facility] 1.2.840.114 350.1.13.10 4.2.7.2.686 [id number] [facility] 2021-11-09 17:29:00 2021-11-09 20:21:00 Emergency X MISTY HOOKER [facility] ERT [id number] [facility] 2021-11-09 17:29:00 2021-11-09 20:21:00 Emergency Misty Hooker [facility] 1.2.840.114 350.1.13.10 4.2.7.2.686 [id number] [facility] 2021-10-23 09:30:00 2021-10-23 09:30:00 Outpatient R WYATT HUGGINS [facility] [id number] [facility] 2021-08-06 00:30:00 2021-08-06 04:47:00 Emergency X OTILIA BRITTON [facility] ERT [id number] [facility] 2021-08-06 00:30:00 2021-08-06 04:47:00 Emergency Otilia Britton [facility] 1.2.840.114 350.1.13.10 4.2.7.2.686 [id number] [facility] 2021-02-16 16:00:00 2021-02-16 17:01:15 Outpatient R MARVA HOLCOMB [facility] [id number] [facility] 2021-02-16 15:56:33 2021-02-16 17:01:15 Office Visit Marva Holcomb [facility] 1.2.840.114 350.1.13.10 4.2.7.2.686 [id number] [facility] 2021-02-03 00:00:00 2021-02-03 00:00:00 Patient Outreach Eder IvanaAlta Rhoades Songjose Presley 1.2.840.114 350.1.13.10 4.2.7.2.686 [id number] [facility] 2021-02-01 00:00:00 2021-02-01 00:00:00 Transition of Care Sumanth Yaima Destineeseymour Song [place] 1.2.840.114 350.1.13.10 4.2.7.2.686 [id number] [facility] 2021-01-26 20:38:00 2021-01-29 12:24:00 Hospital Encounter Britton Rosendo Murdock [facility] 1.2.840.114 350.1.13.10 4.2.7.2.686 [id number] [facility] 2021-01-27 15:57:00 2021-01-27 16:36:00 Anesthesia Event Mauro Pruitt [facility] 1.2.840.114 350.1.13.10 4.2.7.2.686 [id number] [facility] 2021-01-27 15:30:00 2021-01-27 16:29:00 Surgery Marva Holcomb [facility] 1.84.114 350.1.13.10 4.2.7.2.686 [id number] [facility] 2019-04-22 13:54:22 2019-04-22 14:17:45 [facility]al[facility] [facility] 1.840.114 350.1.13.10 4.2.7.2.686 [id number] [facility] 2019-04-22 00:00:00 2019-04-22 00:00:00 Orders Only Doctor Unassigned, [place] [facility] 1.840.114 350.1.13.10 4.2.7.2.686 [id number] [facility] Results Test Description Test Time Test Comments Results Result Co mments Source Peter Romero RollyCREATININE, 24 HOUR [id number] 00:00:00* Test Item Value Reference Range Interpretation Comme nts CREATININE, URINE, CONC. (te st code = 2071) 34.7 MG/DL CREATININE, URINE, 24 HR ([address] st code = 2109) 1.0 GM/24HOURS TOTAL URINE VOLUME (test cod e = 2055) 3000 ML Peter Romero RollyMATERNAL AFP FOR NTD [id number] 08:28:36* Test Item Value Reference Range Interpretation Comme nts INTERPRETATION (test code = 141345) SCREEN NEGATIVE Neural tube defect risk (test code = 76734) 1:95003 Neural tube defect interpretation (test code = 76397) (NOTE) --- NORMAL - NOT AT INCREASED RISK --- The AFP results indicate a risk for neural tube defect less than or equal to that of the general population. (A normal result is defined as an Adjusted AFP M.O.M. of less than 2.50 for non-diabetics and less than 2.0 for diabetics). The gestation age was based upon Ultrasound Examination. Note that this is a screening test only. Normal results are not a guarantee of a normal . DATE OF (test code = 2660) 1990 MATERNAL WEIGHT (test code = 2657) 184 LBS INITIAL/REPEAT (test code = 303785) INITIAL FAMILY HISTORY OF NTD (test code = 923789) NO INSULIN DEP. DIABETIC (test code = 2659) NO RACE (test code = 2658) SMOKER? (test code = 596431) NO NUMBER OF GESTATIONS (test code = 36527) 1 GESTATIONAL AGE (test code = 2656) 18.7 WEEKS DETERMINED BY: (test code = 2654) US DATE OF SONOGRAM (test code = 27675) 10/19/2023 GESTATIONAL AGE AT SONO (test code = 2653) 10.6 WEEKS ADJUST AFP M.O.M. (test code = 2661) 0.76 M.O.M. AFP (test code = 17264) 33.1 NG/ML UNLESS OTHERWISE INDICATED, ALL TESTING PERFORMED AT [facility] [address] [place] [address] CUSTOMER SUPPORT SPECIALIST: GOPAL BACON M.D. CLIA NUMBER [id number] [facility]. [id number] MATERNAL AFP FOR NTD [id number] 00:00:00* Test Item Value Reference Range Interpretation Comme nts INTERPRETATION (test code = 511019) SCREEN NEGATIVE Neural tube defect risk (raghavendra t code = 59258) 1:13856 Neural tube defect interpretation (test code = 35097) (NOTE) DATE OF (test code = 2660) 1990 MATERNAL WEIGHT (test code = 2657) 184 LBS INITIAL/REPEAT (test code = 679396) INITIAL FAMILY HISTORY OF NTD (test code = 288560) NO INSULIN DEP. DIABETIC (test code = 2659) NO RACE (test code = 2658) SMOKER? (test code = 349925) NO NUMBER OF GESTATIONS (test code = 97148) 1 GESTATIONAL AGE (test code = 2656) 18.7 WEEKS DETERMINED BY: (test code = 2654) US DATE OF SONOGRAM (test code = 16945) 10/19/2023 GESTATIONAL AGE AT SONO (raghavendra t code = 2653) 10.6 WEEKS ADJUST AFP M.O.M. (test code = 2661) 0.76 M.O.M. AFP (test code = 04146) 33.1 NG/ML Peter Ugarte, [id number] 08:32:29SPECIMEN NUMBER: [id number] CULTURE, URINE SPECIMEN NUMBER: [id number] SPECIMEN COMMENT: URINE SOURCE: URINE REPORT STATUS: FINAL FINAL REPORT: 12/17/2023 50-100,000 CFU/ML UROGENITAL JUNAID PRESENT NO COMMON PATHOGENSCULTURE, [id number] 00:00:00* Test Item Value Reference Range Interpretation Comme nts CULTURE, URINE (test code = 23013) SPECIMEN NUMBER: [id number] Peter LoftonNIPT W/ [id number] 00:00:00* Test Item Value Reference Range Interpretation Comme nts FINAL NIPS RESULT (test code = 74980) Low Risk PREDICTED SEX (test code = 45526) Male FRACTION (EST.) (test code = 71283) 10 % TRISOMY 21 (T21) (test code = 86112) Low probability T21 PRE-TEST PROB (test code = 48343) 1/351 T21 POST-TEST PROB (test cod e = 33219) <1/20,000 TRISOMY 18 (T18) (test code = 473236) Low probability T18 PRE-TEST PROB (test code = 445574) 1/1,227 T18 POST-TEST PROB (test cod e = 325391) <1/20,000 TRISOMY 13 (T13) (test code = 540088) Low probability T13 PRE-TEST PROB (test code = 843229) 1/3,236 T13 POST-TEST PROB (test cod e = 298191) <1/20,000 INTERPRETATION (test code = 830708) See Note IMPORTANT INFORMATION (test code = 696046) See Note RECOMMENDATION (test code = 730995) See Note GESTATION AT LGIIA (W) (test code = 746128) 12 weeks GESTATION AT [place] (D) (test code = 743144) 6 days DELIVERY DATE (EST.) (test code = 815380) 05/08/2024 PROVIDED HISTORY INFORMATION (test code = 629140) NUMBER OF FETUSES (test code = 674567) Prasad MATERNAL WEIGHT (test code = 690207) 174 LBS DATING METHOD (test code = 868107) LMP ESTIMATED DATE OF DELIVERY (GENET) (test code = 268255) 08/02/2023 IVF (test code = 111477) NO PATIENT CONSENT (test code = 833472) YES SEX (test code = 950440) See Note PDFE (test code = PDFReport) PDF Peter Veloz W/ [id number] 00:00:00* Test Item Value Reference Range Interpretation Comme nts FINAL NIPS RESULT (test code = 01831) Low Risk PREDICTED SEX (test code = 16771) Male FRACTION (EST.) (test code = 20975) 10 % TRISOMY 21 (T21) (test code = 65405) Low probability T21 PRE-TEST PROB (test code = 64102) 351 T21 POST-TEST PROB (test cod e = 34399) <1/20,000 TRISOMY 18 (T18) (test code = 417255) Low probability T18 PRE-TEST PROB (test code = 904139) 08/28,227 T18 POST-TEST PROB (test cod e = 799185) <1/20,000 TRISOMY 13 (T13) (test code = 280781) Low probability T13 PRE-TEST PROB (test code = 548593) 1,236 T13 POST-TEST PROB (test cod e = 665199) <1/20,000 INTERPRETATION (test code = 393611) See Note IMPORTANT INFORMATION (test code = 785471) See Note RECOMMENDATION (test code = 560005) See Note GESTATION AT [place] (W) (test code = 006297) 12 weeks GESTATION AT [place] (D) (test code = 588810) 6 days DELIVERY DATE (EST.) (test code = 653991) 05/08/2024 PROVIDED HISTORY INFORMATION (test code = 254424) NUMBER OF FETUSES (test code = 950358) Prasad MATERNAL WEIGHT (test code = 685131) 174 LBS DATING METHOD (test code = 054569) LMP ESTIMATED DATE OF DELIVERY (GENET) (test code = 578189) 08/02/2023 IVF (test code = 499208) NO PATIENT CONSENT (test code = 516184) YES SEX (test code = 979422) See Note PDFE (test code = PDFReport) PDF Peter Romero AustinGLUCOSE TOLERANCE GESTATIONAL, 100 GM LOAD, DIAG., (FASTING,1HR 2023-11-07 00:00:00* Test Item Value Reference Range Interpretation Comme nts GLUCOSE, FASTING (test code = ) 85 MG/DL GLUCOSE, 1 HR (test code = ) 165 MG/DL GLUCOSE, 2 HR (test code = ) 130 MG/DL GLUCOSE, 3 HR (test code = ) 106 MG/DL Peter Romero AustinGLUCOSE TOLERANCE GESTATIONAL, 100 GM LOAD, DIAG., (FASTING,1HR 2023-11-07 00:00:00* Test Item Value Reference Range Interpretation Comme nts GLUCOSE, FASTING (test code = ) 85 MG/DL GLUCOSE, 1 HR (test code = ) 165 MG/DL GLUCOSE, 2 HR (test code = ) 130 MG/DL GLUCOSE, 3 HR (test code = ) 106 MG/DL Peter LoftonCULTURE, [id number] 00:00:00* Test Item Value Reference Range Interpretation Comme nts CULTURE, URINE (test code = 76065) SPECIMEN NUMBER: [id number] Peter Romero AustinCULTURE, [id number] 00:00:00* Test Item Value Reference Range Interpretation Comme nts CULTURE, URINE (test code = 06075) SPECIMEN NUMBER: [id number] Peter Romero AustinGLUCOSE, 1 HR, GESTATIONAL SCREEN, 50 GM [id number] 00:00:00 * Test Item Value Reference Range Interpretation Comme nts GLUCOSE 1 HR POST 50 GM (raghavendra t code = 2005) 152 MG/DL Peter Romero AustinGLUCOSE, 1 HR, GESTATIONAL SCREEN, 50 GM [id number] 00:00:00 * Test Item Value Reference Range Interpretation Comme nts GLUCOSE 1 HR POST 50 GM (raghavendra t code = 2005) 152 MG/DL Peter LoftonHCG, [id number] 01:40:52* Test Item Value Reference Range Interpretation Comme nts HCG, QUANTITATIVE (test code = 2506) 81455 MIU/ML SEE BELOW EXPEC MARIAH VALUES FOR [...] . . . . . . MIU/ML [id number] FEMALES . . . . . . . . . . . . MIU/ML <=7 UNLESS OTHERWISE INDICATED, ALL TESTING PERFORMED AT [facility] [address] [place] [address] CUSTOMER SUPPORT SPECIALIST: GOPAL BACON M.D. CLIA NUMBER [id number] [facility] [place] [id number] HCG, [id number] 00:00:00* Test Item Value Reference Range Interpretation Comme nts HCG, QUANTITATIVE (test code = 2506) 72983 MIU/ML Peter LoftonHCG, [id number] 00:00:00* Test Item Value Reference Range Interpretation Comme nts HCG, QUANTITATIVE (test code = 2506) 54019 MIU/ML Peter LoftonHCG, [id number] 00:00:00* Test Item Value Reference Range Interpretation Comme nts HCG, QUANTITATIVE (test code = 2506) 17413 MIU/ML Peter LoftonCULTURE, [id number] 00:00:00* Test Item Value Reference Range Interpretation Comme nts CULTURE, URINE (test code = 70414) SPECIMEN NUMBER: [id number] Peter LoftonHEMOGLOBIN [id number] 00:00:00* Test Item Value Reference Range Interpretation Comme nts HEMOGLOBIN A1 (test code = 2575) 98.1 % HEMOGLOBIN A2 (test code = 2576) 1.9 % HEMOGLOBIN F () (test c ode = 2722) 0.0 % HEMOGLOBIN S (test code = 2724) NONE % HEMOGLOBIN C (test code = 2726) NONE % OTHER HEMOGLOBIN VARIANT (te st code = 60416) NONE DETEC % PATHOLOGIST'S INTERPRETATION (test code = 2577) (NOTE) Peter LoftonHCG, [id number] 00:00:00* Test Item Value Reference Range Interpretation Comme michael HCG, QUANTITATIVE (test code = 2506) 64991 MIU/ML Peter LoftonCULTURE, [id number] 00:00:00* Test Item Value Reference Range Interpretation Comme nts CULTURE, URINE (test code = 83205) SPECIMEN NUMBER: [id number] Peter LoftonHEMOGLOBIN [id number] 00:00:00* Test Item Value Reference Range Interpretation Comme nts HEMOGLOBIN A1 (test code = 2575) 98.1 % HEMOGLOBIN A2 (test code = 2576) 1.9 % HEMOGLOBIN F () (test c ode = 2722) 0.0 % HEMOGLOBIN S (test code = 2724) NONE % HEMOGLOBIN C (test code = 2726) NONE % OTHER HEMOGLOBIN VARIANT (te st code = 67682) NONE DETEC % PATHOLOGIST'S INTERPRETATION (test code = 2577) (NOTE) Peter LoftonCT/NG, TMA, [id number] 00:00:00* Test Item Value Reference Range Interpretation Comme nts CHLAMYDIA, NAAT, URINE (test code = 12329) NEGATIVE GONORRHEA, NAAT, URINE (test code = 30849) NEGATIVE Peter LoftonOBSTETRIC PANEL + [id number] 00:00:00* Test Item Value Reference Range Interpretation [...] K/UL ABS NUCLEATED RBCS (test code = 48697) 0.00 K/UL BLOOD TYPE AND RH (test code = 3901) O POSITIVE ANTIBODY SCREEN (test code = 3902) NEGATIVE RUBELLA ANTIBODY SCREEN (test code = 4600) 379 IU/ML RUBELLA IgG INTERP (test code = 72586) REACTIVE HEPATITIS B SURF AG (test code = 2739) NON-REACTIVE RPR (test code = 05501) NON-REACTIVE RPR TITER (test code = 3500) NOT INDIC. TITER HIV 1/2 4TH GEN, RFLX CONF (test code = 3514) NON-REACTIVE Peter LoftonDRUG ABUSE PANEL 10 WITH [id number] 00:00:00* Test Item Value Reference Range Interpretation Comme nts AMPHETAMINES (test code = 3201) NEGATIVE BARBITURATES (test code = 3202) NEGATIVE BENZODIAZEPINES (test code = 3203) NEGATIVE CANNABINOIDS (test code = 3204) NEGATIVE COCAINE METABOLITE (test cod e = 3205) NEGATIVE OPIATES (test code = 3209) NEGATIVE OXYCODONE (test code = 52934) NEGATIVE PHENCYCLIDINE (test code = 3210) NEGATIVE METHADONE (test code = 3207) NEGATIVE BUPRENORPHINE (test code = 38463) NEGATIVE SOURCE (test code = 266482) URINE Petermadelyn LoftonVARICELLA ZOSTER [id number] 00:00:00* Test Item Value Reference Range Interpretation Comme nts VARICELLA ZOSTER IgG (test c ode = 65616) >2000 INDEX Peter LoftonHEPATITIS C REFLEX [id number] 00:00:00* Test Item Value Reference Range Interpretation Comme michael HEPATITIS C ANTIBODY (test c ode = 9184) NON-REACTIVE Peter LoftonGLUCOSE, 1 HR, GESTATIONAL SCREEN, 50 GM [id number] 00:00:00 * Test Item Value Reference Range Interpretation Comme michael GLUCOSE 1 HR POST 50 GM (raghavendra t code = 2006) 121 MG/DL Peter LoftonTRICHOMONAS, URINE, [id number] 00:00:00* Test Item Value Reference Range Interpretation Comme nts TRICHOMONAS, NAAT, URINE (te st code = 53663) NEGATIVE Peter LoftonCT/NG, TMA, [id number] 00:00:00* Test Item Value Reference Range Interpretation Comme nts CHLAMYDIA, NAAT, URINE (test code = 19817) NEGATIVE GONORRHEA, NAAT, URINE (test code = 33298) NEGATIVE Peter LoftonOBSTETRIC PANEL + [id number] 00:00:00* Test Item Value Reference Range Interpretation [...] K/UL ABS NUCLEATED RBCS (test code = 94888) 0.00 K/UL BLOOD TYPE AND RH (test code = 3901) O POSITIVE ANTIBODY SCREEN (test code = 3902) NEGATIVE RUBELLA ANTIBODY SCREEN (test code = 4600) 379 IU/ML RUBELLA IgG INTERP (test code = 92280) REACTIVE HEPATITIS B SURF AG (test code = 2739) NON-REACTIVE RPR (test code = 85939) NON-REACTIVE RPR TITER (test code = 3500) NOT INDIC. TITER HIV 1/2 4TH GEN, RFLX CONF (test code = 3514) NON-REACTIVE Peter LoftonDRUG ABUSE PANEL 10 WITH [id number] 00:00:00* Test Item Value Reference Range Interpretation Comme nts AMPHETAMINES (test code = 3201) NEGATIVE BARBITURATES (test code = 3202) NEGATIVE BENZODIAZEPINES (test code = 3203) NEGATIVE CANNABINOIDS (test code = 3204) NEGATIVE COCAINE METABOLITE (test cod e = 3205) NEGATIVE OPIATES (test code = 3209) NEGATIVE OXYCODONE (test code = 98155) NEGATIVE PHENCYCLIDINE (test code = 3210) NEGATIVE METHADONE (test code = 3207) NEGATIVE BUPRENORPHINE (test code = 20215) NEGATIVE SOURCE (test code = 736223) URINE Peter LoftonVARICELLA ZOSTER [id number] 00:00:00* Test Item Value Reference Range Interpretation Comme nts VARICELLA ZOSTER IgG (test c ode = 35276) >2000 INDEX Peter LoftonHEPATITIS C REFLEX [id number] 00:00:00* Test Item Value Reference Range Interpretation Comme nts HEPATITIS C ANTIBODY (test c ode = 4675) NON-REACTIVE Peter LoftonGLUCOSE, 1 HR, GESTATIONAL SCREEN, 50 GM [id number] 00:00:00 * Test Item Value Reference Range Interpretation Comme nts GLUCOSE 1 HR POST 50 GM (raghavendra t code = 2005) 121 MG/DL Peter LoftonTRICHOMONAS, URINE, [id number] 00:00:00* Test Item Value Reference Range Interpretation Comme nts TRICHOMONAS, NAAT, URINE (te st code = 13206) NEGATIVE Peter Romero AustinPOCT [id number] 15:49:00* Test Item Value Reference Range Interpretation Comme nts POCT PREG (test code = 1605) Positive On board controls acceptable with C Line (test code = 3574) Yes POCT PREG LOT # (test code = 3575) POCT PREG TEST DATE ( test code = 3576) [facility] [id number] 15:40:00* Test Item Value Reference Range Interpretation Comme nts POCT PREG (test code = 1605) Positive On board controls acceptable with C Line (test code = 3574) Yes POCT PREG LOT # (test code = 3575) POCT PREG TEST DATE ( test code = 3576) Lab Interpretation (test cod e = 82688-4) Abnormal [facility] HospitalHIV [facility]/2 AG-AB WITH [id number] 11:31:52* Test Item Value Reference Range Interpretation Comme nts HIV Semi-quantitative (test code = 76475-1) Negative Negative ASHLEE (test code = ASHLEE) Non-reactive for HIV-1 antigen and HIV-1/HIV-2 antibodies. ?No laboratory evidence of HIV infection. ?Repeat in 2-4 weeks if acute HIV infection is suspected. [facility] HospitalPRENATAL WORKUP, BLOOD [id number] 10:13:07 * Test Item Value Reference Range Interpretation Comme nts ABO & RH (test code = 20) O POSITIVE Performed at [facility] Laboratory Services - [facility] Blood [address] Free: [phone] No. [id number] IAT (test code = 1185) Negative Performed at [facility] Laboratory Services - [facility] Blood [place] [address]Toll Free: [phone] No. [id number] [facility] HospitalHCV [id number] 08:18:32* Test Item Value Reference Range Interpretation Comme nts HCV Ab (test code = 97773-4) Negative HCV Semi-Quantitative (test code = 82498-7) [facility] HospitalHEPATITIS B SURFACE [id number] 08:01:30 * Test Item Value Reference Range Interpretation Comme nts HBsAg Semi-Quantitative (raghavendra t code = 5195-3) Negative Negative [facility] BETA HCG [id number] 07:56:47* Test Item Value Reference Range Interpretation Comme nts BETA HCG (test code = 8512093279) See_Comment [Automated CHEQROOMa ge] The system which generated this result transmitted reference range: Non- female and male patients: <5 mIU/mL. The reference range was not used to interpret this result as normal/abnormal. ASHLEE (test code = ASHLEE) Gestational Age ?Range (mIU/mL) 1-10 ?Weeks ?25-86295629-75 Weeks ?89436-82514270-69 Weeks ?1486-56435503-80 Weeks ?[id number] Biotin has been reported to cause a negative bias, interpret results relative to patient's use of biotin. [facility] HospitalCB WITH [id number] 06:34:02* Test Item Value Reference Range Interpretation Comme nts WBC (test code = 6690-2) See_Comment [Automated CHEQROOMa ge] The system which generated this result transmitted reference range: 4.30 - 11.10 10*3/?L. The reference range was not used to interpret this result as normal/abnormal. RBC (test code = 789-8) See_Comment [Automated CHEQROOMa ge] The system which generated this result [...] g/dL 31.6-35.1 L RDW-SD (test code = 24654-7) 48.1 fL 39.0-49.9 RDW-CV (test code = 788-0) 17.2 % 12.0-15.5 H PLT (test code = 777-3) See_Comment [Automated CHEQROOMa ge] The system which generated this result transmitted reference range: 166 - 358 10*3/?L. The reference range was not used to interpret this result as normal/abnormal. MPV (test code = 19967-3) 11.3 fL 9.5-12.9 NRBC/100 WBC (test code = 8024305286) See_Comment [Automated [employer] ssage] The system which generated this result transmitted reference range: 0.0 - 10.0 /100 WBCs. The reference range was not used to interpret this result as normal/abnormal. NRBC x10^3 (test code = 1745568258) See_Comment [Automated CHEQROOMa ge] The system which generated this result transmitted reference range: 10*3/?L. The reference range was not used to interpret this result as normal/abnormal. GRAN MAT (NEUT) % (test code = 770-8) 70.4 % IMM GRAN % (test code = 2978338626) 0.60 % LYMPH % (test code = 736-9) 21.6 % MONO % (test code = 5905-5) 5.7 % EOS % (test code = 713-8) 1.1 % BASO % (test code = 706-2) 0.6 % GRAN MAT x10^3(ANC) (test code = 0778370208) 7.10 10*3/uL 1.88-7.09 H IMM GRAN x10^3 (test code = 4367669641) 0.06 10*3/uL 0.00-0.06 LYMPH x10^3 (test code = 731-0) 2.18 10*3/uL 1.32-3.29 MONO x10^3 (test code = 742-7) 0.57 10*3/uL 0.33-0.92 EOS x10^3 (test code = 711-2) 0.11 10*3/uL 0.03-0.39 BASO x10^3 (test code = 704-7) 0.06 10*3/uL 0.01-0.07 Lab Interpretation (test code = 50775-4) Abnormal [facility] URINALYSIS W/O SPECIFIC [id number] 20:30:00* Test Item Value Reference Range Interpretation [...] = 3257) Large Negative - Negati ve [facility] URINALYSIS W/O SPECIFIC [id number] 20:30:00* Test Item Value Reference Range Interpretation [...] = 3257) Large Negative - Negati ve [facility] [id number] 20:29:00* Test Item Value Reference Range Interpretation Comme nts POCT PREG (test code = 1605) Positive On board controls acceptable with C Line (test code = 3574) Yes POCT PREG LOT # (test code = 3575) POCT PREG TEST DATE ( test code = 3576) [facility] [id number] 20:29:00* Test Item Value Reference Range Interpretation Comme nts POCT PREG (test code = 1605) Positive On board controls acceptable with C Line (test code = 3574) Yes POCT PREG LOT # (test code = 3575) POCT PREG TEST DATE ( test code = 3576) [facility] HospitalTOTAL BHCG (QUANTITATIVE)2022-09-20 17:15:40* Test Item Value Reference Range Interpretation Comme nts BETA HCG (test code = 4889529977) See_Comment [Automated messa ge] The system which generated this result transmitted reference range: Non- female and male patients: <5 mIU/mL. The reference range was not used to interpret this result as normal/abnormal. ASHLEE (test code = ASHLEE) Gestational Age ?Range (mIU/mL) 1-10 ?Weeks ?80-81924733-74 Weeks ?34744-84133956-70 Weeks ?2273-20524093-09 Weeks ?4102-866060 Biotin has been reported to cause a negative bias, interpret results relative to patient's use of biotin. [facility] HospitalPREGNANCY TEST, [id number] 16:16:57* Test Item Value Reference Range Interpretation Comme [facility] PREG SERUM (test code = 6710482677) Positive ASHLEE (test code = ASHLEE) Positive greater t lewis or equal to 10 IU/L hCG. [facility] HospitalACTIVATED PARTIAL THRMPLAS [id number] 16:14:06* Test Item Value Reference Range Interpretation Comme nts APTT Patient (test code = 3173-2) See_Comment [Automated message] The system which generated this result transmitted reference range: 23 - 38 Seconds. The reference range was not used to interpret this result as normal/abnormal. ASHLEE (test code = ASHLEE) The [facility] patient population mean normal value for aPTT is 30 seconds. Lab Interpretation (test code = 95159-1) Normal [facility] HospitalPROTHROMBIN TIME / [id number] 16:12:09* Test Item Value Reference Range Interpretation [...] the indications. Lab Interpretation (test code = 68571-8) Normal [facility]. METABOLIC PANEL (50205)2022-09-20 15:58:03* Test Item Value Reference Range Interpretation Comme nts NA (test code = 4452359255) 136 mmol/L 135-145 K (test code = 5399542675) 4.1 mmol/L 3.5-5.0 CL (test code = 9672508310) 102 mmol/L 98-108 CO2 TOTAL (test code = 8006264685) 25 mmol/L 23-31 AGAP (test code = 2781152873) 2-16 BUN (test code = 1783250970) 9 mg/dL 7-23 GLUCOSE (test code = 9536363023) 94 mg/dL 70-110 CREATININE (test code = 0362025308) 0.48 mg/dL 0.50-1.04 L TOTAL BILI (test code = 5694402054) 0.4 mg/dL 0.1-1.1 CALCIUM (test code = 4155197089) 8.8 mg/dL 8.6-10.6 T PROTEIN (test code = 8324528951) 7.4 g/dL 6.3-8.2 ALBUMIN (test code = 4172203798) 4.5 g/dL 3.5-5.0 ALK PHOS (test code = 4783825979) 77 U/L 34-122 ALTv (test code = 1742-6) 15 U/L 5-35 AST(SGOT) (test code = 6922202703) 19 U/L 13-40 eGFR (test code = 1925120122) mL/min/1.73m2 ASHLEE (test code = ASHLEE) Association [...] imaging tests). Lab Interpretation (test code = 92012-5) Abnormal [facility] HospitalLIPASE2023-01-24 15:58:03* Test Item Value Reference Range Interpretation Comme nts LIPASE (test code = 7965488400) 74 U/L 0-220 Lab Interpretation (test cod e = 00801-3) Normal [facility] WITH [id number] 15:56:47* Test Item Value Reference Range Interpretation Comme nts WBC (test code = 6690-2) See_Comment [Automated [employer]] The system which generated this result transmitted reference range: 4.30 - 11.10 10*3/?L. The reference range was not used to interpret this result as normal/abnormal. RBC (test code = 789-8) See_Comment [Automated [employer]osterbot] The system which generated this result transmitted [...] g/dL 31.6-35.1 L RDW-SD (test code = 26900-1) 47.3 fL 39.0-49.9 RDW-CV (test code = 788-0) 17.0 % 12.0-15.5 H PLT (test code = 777-3) See_Comment [Automated messa ge] The system which generated this result transmitted reference range: 166 - 358 10*3/?L. The reference range was not used to interpret this result as normal/abnormal. MPV (test code = 39854-1) 10.5 fL 9.5-12.9 NRBC/100 WBC (test code = 4419978507) See_Comment [Automated [employer] ssage] The system which generated this result transmitted reference range: 0.0 - 10.0 /100 WBCs. The reference range was not used to interpret this result as normal/abnormal. NRBC x10^3 (test code = 4985128081) See_Comment [Automated messa ge] The system which generated this result transmitted reference range: 10*3/?L. The reference range was not used to interpret this result as normal/abnormal. GRAN MAT (NEUT) % (test code = 770-8) 58.6 % IMM GRAN % (test code = 8798207801) 0.80 % LYMPH % (test code = 736-9) 30.9 % MONO % (test code = 5905-5) 6.6 % EOS % (test code = 713-8) 2.4 % BASO % (test code = 706-2) 0.7 % GRAN MAT x10^3(ANC) (test code = 4924723763) 5.29 10*3/uL 1.88-7.09 IMM GRAN x10^3 (test code = 3857053924) 0.07 10*3/uL 0.00-0.06 H LYMPH x10^3 (test code = 731-0) 2.79 10*3/uL 1.32-3.29 MONO x10^3 (test code = 742-7) 0.60 10*3/uL 0.33-0.92 EOS x10^3 (test code = 711-2) 0.22 10*3/uL 0.03-0.39 BASO x10^3 (test code = 704-7) 0.06 10*3/uL 0.01-0.07 Lab Interpretation (test code = 07716-9) Abnormal [facility] WITH [id number] 23:41:07* Test Item Value Reference Range Interpretation [...] g/dL 31.6-35.1 L RDW-SD (test code = 90140-1) 40.8 fL 39.0-49.9 RDW-CV (test code = 788-0) 15.0 % 12.0-15.5 PLT (test code = 777-3) See_Comment H [Automated messa ge] The system which generated this result transmitted reference range: 166 - 358 10*3/?L. The reference range was not used to interpret this result as normal/abnormal. MPV (test code = 87322-6) 10.5 fL 9.5-12.9 NRBC/100 WBC (test code = 5312819781) See_Comment [Automated me ssage] The system which generated this result transmitted reference range: 0.0 - 10.0 /100 WBCs. The reference range was not used to interpret this result as normal/abnormal. NRBC x10^3 (test code = 5442858762) <0.01 See_Comment [Automated messa ge] The system which generated this result transmitted reference range: 10*3/?L. The reference range was not used to interpret this result as normal/abnormal. GRAN MAT (NEUT) % (test code = 770-8) 83.2 % IMM GRAN % (test code = 0745343543) 0.60 % LYMPH % (test code = 736-9) 8.5 % MONO % (test code = 5905-5) 6.6 % EOS % (test code = 713-8) 0.8 % BASO % (test code = 706-2) 0.3 % GRAN MAT x10^3(ANC) (test code = 6349051192) 7.73 10*3/uL 1.88-7.09 H IMM GRAN x10^3 (test code = 5038483570) 0.06 10*3/uL 0.00-0.06 LYMPH x10^3 (test code = 731-0) 0.79 10*3/uL 1.32-3.29 L MONO x10^3 (test code = 742-7) 0.61 10*3/uL 0.33-0.92 EOS x10^3 (test code = 711-2) 0.07 10*3/uL 0.03-0.39 BASO x10^3 (test code = 704-7) 0.03 10*3/uL 0.01-0.07 Lab Interpretation (test code = 83472-1) [facility]normal [facility] HospitalCOMP. METABOLIC PANEL (70185)2021-11-09 23:32:45* Test Item Value Reference Range Interpretation Comme nts NA (test code = 1619127104) 135 mmol/L 135-145 K (test code = 3472695511) 4.3 mmol/L 3.5-5.0 CL (test code = 9560208813) 100 mmol/L 98-108 CO2 TOTAL (test code = 3846555511) 26 mmol/L 23-31 AGAP (test code = 0693486392) 2-16 BUN (test code = 5238733070) 8 mg/dL 7-23 GLUCOSE (test code = 6118503629) 98 mg/dL 70-110 CREATININE (test code = 5605232834) 0.56 mg/dL 0.50-1.04 TOTAL BILI (test code = 6903463595) 0.5 mg/dL 0.1-1.1 CALCIUM (test code = 9881113279) 8.7 mg/dL 8.6-10.6 T PROTEIN (test code = 8965736955) 7.7 g/dL 6.3-8.2 ALBUMIN (test code = 4798265944) 4.7 g/dL 3.5-5.0 ALK PHOS (test code = 1156660711) 82 U/L 34-122 ALTv (test code = 1742-6) 14 U/L 5-35 AST(SGOT) (test code = 8060100406) 34 U/L 13-40 eGFR (test code = 1473847955) mL/min/1.73m2 ASHLEE (test code = ASHLEE) Association [...] or urine or abnormalities in imaging tests). [facility] HospitalLIPASE2022-[facility] 23:32:25* Test Item Value Reference Range Interpretation Comme nts LIPASE (test code = 6904848561) 70 U/L 0-220 Lab Interpretation (test cod e = 36473-4) Normal [facility] HospitalPO[facility] [id number] 23:21:00* Test Item Value Reference Range Interpretation Comme nts POCT PREG (test code = 1605) NEGATIVE On board controls acceptable with C Line (test code = 3574) PRESENT POCT PREG LOT # (test code = 3575) [id number] POCT PREG TEST DATE ( test code = 3576) Lab Interpretation (test cod e = 41172-3) Normal [facility] HospitalBASIC METABOLIC PANEL (NA, K, CL, CO2, GLUCOSE, BUN, CREATININE, CA)2021-01-29 11:56:16* Test Item Value Reference Range Interpretation Comme nts NA (test code = 9443070369) 140 mmol/L 135-145 K (test code = 0794326066) 3.4 mmol/L 3.5-5.0 L CL (test code = 4383596692) 106 mmol/L 98-108 CO2 TOTAL (test code = 2237576977) 27 mmol/L 23-31 AGAP (test code = 4430256660) 2-16 BUN (test code = 7095460361) 12 mg/dL 7-23 GLUCOSE (test code = 7032357808) 90 mg/dL 70-110 CREATININE (test code = 0780735416) 0.88 mg/dL 0.50-1.04 CALCIUM (test code = 1701058578) 8.6 mg/dL 8.6-10.6 eGFR (test code = 1728758671) mL/min/1.73m2 ASHLEE (test code = ASHLEE) Association [...] imaging tests). Lab Interpretation (test code = 09867-0) Abnormal [facility] WITH [id number] 11:26:15* Test Item Value Reference Range Interpretation Comme nts WBC (test code = 6690-2) See_Comment [[employer]hor] The system which generated this result transmitted reference range: 4.30 - 11.10 10*3/?L. The reference range was not used to interpret this result as normal/abnormal. RBC (test code = 789-8) See_Comment L [Automated Rosterbot] The system which generated this result transmitted [...] g/dL 31.6-35.1 L RDW-SD (test code = 18259-7) 42.7 fL 39.0-49.9 RDW-CV (test code = 788-0) 14.1 % 12.0-15.5 PLT (test code = 777-3) See_Comment [Automated messa ge] The system which generated this result transmitted reference range: 166 - 358 10*3/?L. The reference range was not used to interpret this result as normal/abnormal. MPV (test code = 22019-3) 10.5 fL 9.5-12.9 NRBC/100 WBC (test code = 1513340106) See_Comment [Automated [employer] ssage] The system which generated this result transmitted reference range: 0.0 - 10.0 /100 WBCs. The reference range was not used to interpret this result as normal/abnormal. NRBC x10^3 (test code = 5944750619) <0.01 See_Comment [Automated messa ge] The system which generated this result transmitted reference range: 10*3/?L. The reference range was not used to interpret this result as normal/abnormal. GRAN MAT (NEUT) % (test code = 770-8) 68.3 % IMM GRAN % (test code = 0702755241) 0.70 % LYMPH % (test code = 736-9) 19.6 % MONO % (test code = 5905-5) 7.1 % EOS % (test code = 713-8) 3.8 % BASO % (test code = 706-2) 0.5 % GRAN MAT x10^3(ANC) (test code = 5081884898) 6.23 10*3/uL 1.88-7.09 IMM GRAN x10^3 (test code = 1016490338) 0.06 10*3/uL 0.00-0.06 LYMPH x10^3 (test code = 731-0) 1.79 10*3/uL 1.32-3.29 MONO x10^3 (test code = 742-7) 0.65 10*3/uL 0.33-0.92 EOS x10^3 (test code = 711-2) 0.35 10*3/uL 0.03-0.39 BASO x10^3 (test code = 704-7) 0.05 10*3/uL 0.01-0.07 Lab Interpretation (test code = 58935-2) Abnormal [facility] HospitalVancomycin Trough Level - Draw no more than 60 minutes before the 1100 dose.2021-01-29 05:02:45* Test Item Value Reference Range Interpretation Comme nts VANCO TROUGH (test code = 6069757317) 7.6 ug/mL 10.0-20.0 L ASHLEE (test code = ASHLEE) Toxic Range: ?>20 ug/mL 15-20 ug/mL is recommended for severe infection or when Vancomycin AURA is greater than or equal to 2. Lab Interpretation (test code = 25807-4) Abnormal [facility] HospitalBasi Metabolic Panel (NA, K, CL, CO2, GLUCOSE, BUN, CREATININE, CA)2021-01-28 11:50:40* Test Item Value Reference Range Interpretation Comme nts NA (test code = 9190962152) 138 mmol/L 135-145 K (test code = 2138641524) 4.2 mmol/L 3.5-5.0 CL (test code = 2779038651) 104 mmol/L 98-108 CO2 TOTAL (test code = 7835111554) 25 mmol/L 23-31 AGAP (test code = 3446359979) 2-16 BUN (test code = 1641724433) 7 mg/dL 7-23 GLUCOSE (test code = 5334680014) 147 mg/dL 70-110 H CREATININE (test code = 0028115349) 0.44 mg/dL 0.50-1.04 L CALCIUM (test code = 6685664740) 9.0 mg/dL 8.6-10.6 eGFR (test code = 0472754491) mL/min/1.73m2 ASHLEE (test code = ASHLEE) Association [...] imaging tests). Lab Interpretation (test code = 50957-3) Abnormal [facility] Metabolic Panel (NA, K, CL, CO2, GLUCOSE, BUN, CREATININE, CA)2021-01-28 11:50:40* Test Item Value Reference Range Interpretation Comme nts NA (test code = 8418065370) 138 mmol/L 135-145 K (test code = 3843191602) 4.2 mmol/L 3.5-5.0 CL (test code = 0892255075) 104 mmol/L 98-108 CO2 TOTAL (test code = 0596095241) 25 mmol/L 23-31 AGAP (test code = 7761211242) 2-16 BUN (test code = 2743478394) 7 mg/dL 7-23 GLUCOSE (test code = 8461107025) 147 mg/dL 70-110 H CREATININE (test code = 9126285107) 0.44 mg/dL 0.50-1.04 L CALCIUM (test code = 8187064941) 9.0 mg/dL 8.6-10.6 eGFR (test code = 0010578330) mL/min/1.73m2 ASHLEE (test code = ASHLEE) Association [...] imaging tests). Lab Interpretation (test code = 58453-5) Abnormal [facility] with Zpdpqihkdxds2436-32-86 11:08:37* Test Item Value Reference Range Interpretation Comme nts WBC (test code = 6690-2) See_Comment H [Automated Rosterbot] The system which generated this result transmitted reference range: 4.30 - 11.10 10*3/?L. The reference range was not used to interpret this result as normal/abnormal. RBC (test code = 789-8) See_Comment L [Automated Rosterbot] The system which generated this result transmitted [...] g/dL 31.6-35.1 L RDW-SD (test code = 08802-3) 41.9 fL 39.0-49.9 RDW-CV (test code = 788-0) 13.6 % 12.0-15.5 PLT (test code = 777-3) See_Comment H [Automated messa ge] The system which generated this result transmitted reference range: 166 - 358 10*3/?L. The reference range was not used to interpret this result as normal/abnormal. MPV (test code = 09350-2) 10.6 fL 9.5-12.9 NRBC/100 WBC (test code = 1171854507) See_Comment [Automated [employer] ssage] The system which generated this result transmitted reference range: 0.0 - 10.0 /100 WBCs. The reference range was not used to interpret this result as normal/abnormal. NRBC x10^3 (test code = 0975419908) <0.01 See_Comment [Automated messa ge] The system which generated this result transmitted reference range: 10*3/?L. The reference range was not used to interpret this result as normal/abnormal. GRAN MAT (NEUT) % (test code = 770-8) 87.6 % IMM GRAN % (test code = 6262185769) 0.40 % LYMPH % (test code = 736-9) 8.8 % MONO % (test code = 5905-5) 2.8 % EOS % (test code = 713-8) 0.1 % BASO % (test code = 706-2) 0.3 % GRAN MAT x10^3(ANC) (test code = 1994951982) 9.81 10*3/uL 1.88-7.09 H IMM GRAN x10^3 (test code = 2962868836) 0.05 10*3/uL 0.00-0.06 LYMPH x10^3 (test code = 731-0) 0.98 10*3/uL 1.32-3.29 L MONO x10^3 (test code = 742-7) 0.31 10*3/uL 0.33-0.92 L EOS x10^3 (test code = 711-2) <0.03 0.03-0.39 L BASO x10^3 (test code = 704-7) 0.03 10*3/uL 0.01-0.07 Lab Interpretation (test code = 31181-8) Abnormal [facility] with Agniszceiqui3612-78-15 11:08:37* Test Item Value Reference Range Interpretation [...] g/dL 31.6-35.1 L RDW-SD (test code = 86660-1) 41.9 fL 39.0-49.9 RDW-CV (test code = 788-0) 13.6 % 12.0-15.5 PLT (test code = 777-3) See_Comment H [Automated messa ge] The system which generated this result transmitted reference range: 166 - 358 10*3/?L. The reference range was not used to interpret this result as normal/abnormal. MPV (test code = 60754-8) 10.6 fL 9.5-12.9 NRBC/100 WBC (test code = 3104178594) See_Comment [Automated me ssage] The system which generated this result transmitted reference range: 0.0 - 10.0 /100 WBCs. The reference range was not used to interpret this result as normal/abnormal. NRBC x10^3 (test code = 6785800119) <0.01 See_Comment [Automated messa ge] The system which generated this result transmitted reference range: 10*3/?L. The reference range was not used to interpret this result as normal/abnormal. GRAN MAT (NEUT) % (test code = 770-8) 87.6 % IMM GRAN % (test code = 9362020265) 0.40 % LYMPH % (test code = 736-9) 8.8 % MONO % (test code = 5905-5) 2.8 % EOS % (test code = 713-8) 0.1 % BASO % (test code = 706-2) 0.3 % GRAN MAT x10^3(ANC) (test code = 6711279324) 9.81 10*3/uL 1.88-7.09 H IMM GRAN x10^3 (test code = 9751771705) 0.05 10*3/uL 0.00-0.06 LYMPH x10^3 (test code = 731-0) 0.98 10*3/uL 1.32-3.29 L MONO x10^3 (test code = 742-7) 0.31 10*3/uL 0.33-0.92 L EOS x10^3 (test code = 711-2) <0.03 0.03-0.39 L BASO x10^3 (test code = 704-7) 0.03 10*3/uL 0.01-0.07 Lab Interpretation (test code = 41981-9) [facility] 21:23:47Gian Negrete CRNA ? ? 01/27/2021 ?4:24 PMIntubationUrgency: elective Airway not difficult General Information and Staff Patient location during procedure: ORResident/BRICK CATCHER: Gian Negrete CRNAPerformed:resident/BRICK CATCHER Indications and Patient ConditionIndications for airway management: anesthesiaSpontaneous Ventilation: absentSedation level: deepPreoxygenated: yesPatient position: sniffingMILS maintained throughoutMask difficulty assessment: 0 - not attempted Final Airway DetailsFinal airway type: supraglottic airway Successful airway: Supraglottic airway: igel.Size 3 Number of attempts at approach: 1 Additional CommentsAirway dry [facility] 2021-01-27 12:56:13A 6 cm right subcutaneous gluteal collection with layering fat, mayrepresent seroma or hematoma. However superimposed infection cannot beruled out. Clinical correlation is recommended. Preliminary Report Dictated by Resident: Cadence Thompson MD., have reviewed this study and agree with theabove report.EXAM: CT PELVIS WITH CONTRAST HISTORY: had a butt-[place] surgery in [place] 12/23/20 and that it wasfeeling fine up [...] WITH CONTRASTHISTORY: had a butt-lift surgery in [place] on 12/23/20 and that it wasfeeling fine [...] reviewed this study and agree with theabove report.[facility] W [id number] 12:56:13A 6 cm right subcutaneous gluteal collection with layering fat, mayrepresent seroma or hematoma. However superimposed infection cannot beruled out. Clinical correlation is recommended. Preliminary Report Dictated by Resident: Cadence Thompson MD., have reviewed this study and agree with theabove report.EXAM: CT PELVIS WITH CONTRAST HISTORY: had a butt-lift surgery in [facility] 12/23/20 and that it wasfeeling fine [...] WITH CONTRASTHISTORY: had a butt-lift surgery in [place] on 12/23/20 and that it wasfeeling fine [...] reviewed this study and agree with theabove report.[facility] HospitalHEPATIC FUNCTION PANEL (62879) (ALB,T.PRO,BILI T,BU/BC,ALT,AST,ALK PHOS)2021-01-27 06:43:32* Test Item Value Reference Range Interpretation Comme nts TOTAL BILI (test code = 0511427448) 0.3 mg/dL 0.1-1.1 BILI UNCON (test code = 7846715239) 0.1 mg/dL 0.1-1.1 BILI CONJ (test code = 5533195821) 0.0 mg/dL 0.0-0.3 T PROTEIN (test code = 7154300334) 7.0 g/dL 6.3-8.2 ALBUMIN (test code = 8703081952) 3.8 g/dL 3.5-5.0 ALK PHOS (test code = 9504415956) 114 U/L 34-122 ALTv (test code = 1742-6) 16 U/L 5-35 AST(SGOT) (test code = 5100184587) 77 U/L 13-40 H Lab Interpretation (test cod e = 79894-5) Abnormal [facility] HospitalHEP[facility] FUNCTION PAN[facility] (06874) (ALB,T.PRO,BILI T,BU/BC,ALT,AST,ALK PHOS)2021-01-27 06:43:32* Test Item Value Reference Range Interpretation Comme nts TOTAL BILI (test code = 1044008914) 0.3 mg/dL 0.1-1.1 BILI UNCON (test code = 2575963893) 0.1 mg/dL 0.1-1.1 BILI CONJ (test code = 6760707230) 0.0 mg/dL 0.0-0.3 T PROTEIN (test code = 7485425693) 7.0 g/dL 6.3-8.2 ALBUMIN (test code = 3411235774) 3.8 g/dL 3.5-5.0 ALK PHOS (test code = 5103648095) 114 U/L 34-122 ALTv (test code = 1742-6) 16 U/L 5-35 AST(SGOT) (test code = 4464478128) 77 U/L 13-40 H Lab Interpretation (test cod e = 73573-7) Abnormal [facility] HospitalXR CHEST 1 [id number] 06:12:38No acute cardiopulmonary process. RL: 8722AFC: [id number] Patient name: FLORES MCCARTHYB: 1990 30 years [...] acute osseous abnormality.IMPRESSIONNo acute cardiopulmonary process.RL: 8722AFC: [id number] signed by Maxime Bolaños at 01/27/2021 1:12 [facility] [id number] 06:12:38No acute cardiopulmonary process. RL: 8722AFC: [id number] Patient name: FLORES GREGORY: 1990 30 years [...] acute osseous abnormality.IMPRESSIONNo acute cardiopulmonary process.RL: 8722AF: [id number] signed by Maxime Bolaños at 01/27/2021 1:12 [facility]Un[facility] Whole Jdgbq7697-12-88 05:56:59* Test Item Value Reference Range Interpretation Comme nts LACTIC ACID (test code = 9141657639) 1.65 mmol/L 0.50-2.20 Lab Interpretation (test cod e = 61857-1) Normal [facility] Acid Whole Gwkce8288-66-07 05:56:59* Test Item Value Reference Range Interpretation Comme nts LACTIC ACID (test code = 2030290239) 1.65 mmol/L 0.50-2.20 Lab Interpretation (test cod e = 86014-7) Normal [place] [address] (ID NOW RAPID TESTING)2021-01-27 04:56:37* Test Item Value Reference Range Interpretation Comme nts SARS-CoV-2 Rapid ID NOW (test code = 24605-9) Positive Not Detected A ASHLEE (test code = ASHLEE) ID NOW COVID-19 As say is an isothermal nucleic acid amplification test intended for the qualitative detection of nucleic acid from SARS-CoV-2 viral RNA in nasopharyngeal (ANTIQUE FINISHER) specimens. It is used under Emergency Use [...] clinically indicated. Lab Interpretation (test code = 92814-6) Abnormal [place] [address] (ID NOW RAPID TESTING)2021-01-27 04:56:37* Test Item Value Reference Range Interpretation Comme nts SARS-CoV-2 Rapid ID NOW (test code = 36267-1) Positive Not Detected A ASHLEE (test code = ASHLEE) ID NOW COVID-19 As say is an isothermal nucleic acid amplification test intended for the qualitative detection of nucleic acid from SARS-CoV-2 viral RNA in nasopharyngeal (ANTIQUE FINISHER) specimens. It is used under Emergency Use [...] clinically indicated. Lab Interpretation (test code = 46127-9) Abnormal [facility] METABOLIC PANEL (NA, K, CL, CO2, GLUCOSE, BUN, CREATININE, CA)2021-01-27 02:53:47* Test Item Value Reference Range Interpretation Comme nts NA (test code = 0699268369) 140 mmol/L 135-145 K (test code = 3645171511) 3.6 mmol/L 3.5-5.0 CL (test code = 8518216371) 101 mmol/L 98-108 CO2 TOTAL (test code = 0903397331) 31 mmol/L 23-31 AGAP (test code = 8665143231) 2-16 BUN (test code = 2609395251) 6 mg/dL 7-23 L GLUCOSE (test code = 9410555998) 130 mg/dL 70-110 H CREATININE (test code = 3648467271) 0.49 mg/dL 0.50-1.04 L CALCIUM (test code = 8421694051) 9.4 mg/dL 8.6-10.6 eGFR (test code = 2967213173) mL/min/1.73m2 ASHLEE (test code = ASHLEE) Association [...] imaging tests). Lab Interpretation (test code = 23815-1) Abnormal [facility] METABOLIC PANEL (NA, K, CL, CO2, GLUCOSE, BUN, CREATININE, CA)2021-01-27 02:53:47* Test Item Value Reference Range Interpretation Comme nts NA (test code = 6790236985) 140 mmol/L 135-145 K (test code = 0234240145) 3.6 mmol/L 3.5-5.0 CL (test code = 3357171902) 101 mmol/L 98-108 CO2 TOTAL (test code = 3983280548) 31 mmol/L 23-31 AGAP (test code = 3363805760) 2-16 BUN (test code = 3762359961) 6 mg/dL 7-23 L GLUCOSE (test code = 1383386190) 130 mg/dL 70-110 H CREATININE (test code = 6470586717) 0.49 mg/dL 0.50-1.04 L CALCIUM (test code = 9602091199) 9.4 mg/dL 8.6-10.6 eGFR (test code = 8606014046) mL/min/1.73m2 ASHLEE (test code = ASHLEE) Association [...] imaging tests). Lab Interpretation (test code = 84429-0) Abnormal [facility] WITH [id number] 02:42:45* Test Item Value Reference Range Interpretation Comme nts WBC (test code = 6690-2) See_Comment [Automated Rosterbot] The system which generated this result transmitted reference range: 4.30 - 11.10 10*3/?L. The reference range was not used to interpret this result as normal/abnormal. RBC (test code = 789-8) See_Comment L [Automated Rosterbot] The system which generated this result transmitted [...] g/dL 31.6-35.1 L RDW-SD (test code = 28901-6) 43.4 fL 39.0-49.9 RDW-CV (test code = 788-0) 14.1 % 12.0-15.5 PLT (test code = 777-3) See_Comment [Automated messa ge] The system which generated this result transmitted reference range: 166 - 358 10*3/?L. The reference range was not used to interpret this result as normal/abnormal. MPV (test code = 08198-3) 10.8 fL 9.5-12.9 NRBC/100 WBC (test code = 7261475994) See_Comment [Automated [employer] ssage] The system which generated this result transmitted reference range: 0.0 - 10.0 /100 WBCs. The reference range was not used to interpret this result as normal/abnormal. NRBC x10^3 (test code = 9174925044) <0.01 See_Comment [Automated messa ge] The system which generated this result transmitted reference range: 10*3/?L. The reference range was not used to interpret this result as normal/abnormal. GRAN MAT (NEUT) % (test code = 770-8) 70.5 % IMM GRAN % (test code = 8555502161) 0.60 % LYMPH % (test code = 736-9) 19.5 % MONO % (test code = 5905-5) 5.6 % EOS % (test code = 713-8) 3.4 % BASO % (test code = 706-2) 0.4 % GRAN MAT x10^3(ANC) (test code = 8203823510) 7.35 10*3/uL 1.88-7.09 H IMM GRAN x10^3 (test code = 0232264259) 0.06 10*3/uL 0.00-0.06 LYMPH x10^3 (test code = 731-0) 2.03 10*3/uL 1.32-3.29 MONO x10^3 (test code = 742-7) 0.58 10*3/uL 0.33-0.92 EOS x10^3 (test code = 711-2) 0.35 10*3/uL 0.03-0.39 BASO x10^3 (test code = 704-7) 0.04 10*3/uL 0.01-0.07 Lab Interpretation (test code = 31207-8) Abnormal [facility] WITH [id number] 02:42:45* Test Item Value Reference Range Interpretation Comme nts WBC (test code = 6690-2) See_Comment [Automated CHEQROOMa ge] The system which generated this result [...] g/dL 31.6-35.1 L RDW-SD (test code = 16531-6) 43.4 fL 39.0-49.9 RDW-CV (test code = 788-0) 14.1 % 12.0-15.5 PLT (test code = 777-3) See_Comment [Automated CHEQROOMa ge] The system which generated this result transmitted reference range: 166 - 358 10*3/?L. The reference range was not used to interpret this result as normal/abnormal. MPV (test code = 37004-6) 10.8 fL 9.5-12.9 NRBC/100 WBC (test code = 1982138837) See_Comment [Automated me ssage] The system which generated this result transmitted reference range: 0.0 - 10.0 /100 WBCs. The reference range was not used to interpret this result as normal/abnormal. NRBC x10^3 (test code = 7331755060) <0.01 See_Comment [Automated messa ge] The system which generated this result transmitted reference range: 10*3/?L. The reference range was not used to interpret this result as normal/abnormal. GRAN MAT (NEUT) % (test code = 770-8) 70.5 % IMM GRAN % (test code = 0270617902) 0.60 % LYMPH % (test code = 736-9) 19.5 % MONO % (test code = 5905-5) 5.6 % EOS % (test code = 713-8) 3.4 % BASO % (test code = 706-2) 0.4 % GRAN MAT x10^3(ANC) (test code = 0120588116) 7.35 10*3/uL 1.88-7.09 H IMM GRAN x10^3 (test code = 6031614768) 0.06 10*3/uL 0.00-0.06 LYMPH x10^3 (test code = 731-0) 2.03 10*3/uL 1.32-3.29 MONO x10^3 (test code = 742-7) 0.58 10*3/uL 0.33-0.92 EOS x10^3 (test code = 711-2) 0.35 10*3/uL 0.03-0.39 BASO x10^3 (test code = 704-7) 0.04 10*3/uL 0.01-0.07 Lab Interpretation (test code = 60406-0) Abnormal [facility] [id number] 02:30:00* Test Item Value Reference Range Interpretation Comme nts POCT PREG (test code = 1605) negative On board controls acceptable with C Line (test code = 3574) present POCT PREG LOT # (test code = 3575) [id number] POCT PREG TEST DATE ( test code = 3576) 07/27/2022 Lab Interpretation (test cod e = 00177-4) [facility] TUJV6697-35-42 02:30:00* Test Item Value Reference Range Interpretation Comme nts POCT PREG (test code = 1605) negative On board controls acceptable with C Line (test code = 3574) present POCT PREG LOT # (test code = 3575) [id number] POCT PREG TEST DATE ( test code = 3576) 07/27/2022 Lab Interpretation (test cod e = 02791-2) Normal [facility] HospitalL[facility] Acid Whole Itarh5930-26-26 02:23:17* Test Item Value Reference Range Interpretation Comme nts LACTIC ACID (test code = 4318312730) 3.15 mmol/L 0.50-2.20 H Lab Interpretation (test cod e = 00775-3) Abnormal [facility] HospitalL[facility] Acid Whole Klyhu1648-46-41 02:23:17* Test Item Value Reference Range Interpretation Comme nts LACTIC ACID (test code = 9566077124) 3.15 mmol/L 0.50-2.20 H Lab Interpretation (test cod e = 91407-5) Abnormal [facility] HospitalPONV [id number] 23:07:00* Test Item Value Reference Range Interpretation Comme nts POCT PREG (test code = 1605) Negative On board controls acceptable with C Line (test code = 3574) Yes POCT PREG LOT # (test code = 3575) POCT PREG TEST DATE ( test code = 3576) [facility] Notes Date/Time Note Provider Source 2024-01-12 00:00:00 Up7zXT+9HkNQU4dddiX1 68L2YeKKAHzkto/f6 BSCM6E4z0ao+jFl/ldrHkvsc/SX1374-33-30 T00:00:00+ + +| Plan Activity | Plan [...] || Miscarriage precautions. | || Referral to [facility] for AMA | || RTO 4 weeks OB f/u with Dr. Zee. | |+ + +| see above plan | 2023-10-31 |+ + +| Referral to [facility] | 2023-10-31 || Start LDA daily | [...] above plan | 2023-12-14 |+ + +| ANILA, UC, results pending | 2023-12-15 || Continue PNV and LDA | || Continue f/u with MFM as recommended. | || Preeclampsia and PTL precautions given. | || 4 week f/u with Dr. Zee | |+ + +| Discussed weight gain of 8lbs in the past month. | 2024-01-12 || Pt reports eating too much food this past month. | || Discussed diet and healthy weight gain in and risks of excessive | || weight gain. | |+ + +| see above plna | 2024-01-12 |+ + +| Trevor melchor | 2024-01-12 || Tx pending results | |+ + +04433-9Pjqu of TreatmentLNCARE PLANTXTSFA|[id number] for patient zlyqJcxdnwlZgovlgjdjBGXUe89 Section NarrativeNARRATIVEFormatted C-CDA narrative textSArtesia General Hospitalbárbaramadelyn RomeroMaggie [facility]2024-05-17T00:00:00 Peter RomeroMaggei [facility] 2023-12-12 00:00:00 E1x9FVBPe+4PIJJ65mKC Z7IuxDhNBBLT9Iip6 vJgRI5L61h32PDvDZuoZuQnlQ/i4353-02-33 T00:00:00+ + +| Plan Activity | Plan [...] || Miscarriage precautions. | || Referral to [facility] for AMA | || RTO 4 weeks OB f/u with Dr. Zee. | |+ + +| see above plan | 2023-10-31 |+ + +| Referral to [facility] | 2023-10-31 || Start LDA daily | [...] see above plan | 2023-12-14 |+ + +27086-5Wqjt of TreatmentLNCARE PLANTXTSFA|[id number] for patient mfldXhbmcryEdqkinzbmTYARb42 Section NarrativeNARRATIVEFormatted C-CDA narrative textSFAStalphonso NickMaggie Lofton [facility]2024-04-18T00:00:00 Peter Cuevas [facility]
[2024-01-30] MEDS ORDERED: ACETAMINOPHEN 500 MG TAB ONE (18:04)
[2024-01-30] MEDS ORDERED: ONDANSETRON 4 MG/2 ML VIAL ONE (18:04)
[2024-01-30] MEDS ORDERED: NA CHLORIDE 0.9% 1,000 ML ONE (18:05)
[2024-01-30 18:30] LABS: Absolute Eosinophils 0.1 K/uL (0-0.5); Absolute Monocytes 0.5 K/uL (0.1-1.3); Basophils % 0.2 % (0-1.3); Hematocrit 32.9 % (36.0-45.0); Hemoglobin 10.4 g/dL (12.0-15.0); Lymphocytes % 15.8 % (15.3-44.8); MCH 25.3 pg (27.0-35.0); MCHC 31.6 g/dL (32.0-36.0); MCV 80.2 fL (80-100); MPV 9.4 fL (7.6-11.3); Monocytes % 3.8 % (3.3-12.3); Neutrophils % 79.2 % (41.7-73.7); Platelets 258 thou/uL (152-406); Red Cell Distribution Width 15.4 % (12.1-15.2)
--- NOTE | 2024-01-30 18:32 | RAD REPORT ---
EXAM DESCRIPTION: US - OB Limited - 01/30/2024 6:05 pm CLINICAL HISTORY: with pelvic pain FINDINGS: Single live intrauterine in cephalic presentation. Cervix 3.4 centimeters Cardiac activity 139 beats per minute The placenta is fundal. No subchorionic/retroplacental bleed seen Femur length 4.5 centimeters estimated gestational age 25 weeks 0 days The right and left adnexa are unremarkable No significant free fluid is seen. IMPRESSION: Single live intrauterine in cephalic presentation No significant abnormalities displayed on this limited exam
[2024-01-30 19:12] LABS: Albumin 2.7 g/dL (3.4-5.0); Albumin/Globulin Ratio 0.7 (1.1-1.8); Anion Gap 9.8 mEq/L (5.0-15.0); Bilirubin Total 0.3 mg/dL (0.2-1.0); Globulin 4.1 g/dL (2.3-3.5); Potassium 3.8 mEq/L (3.5-5.1); Protein, Total 6.8 g/dL (6.4-8.2)
--- NOTE | 2024-01-30 19:36 | EDPHYS ---
Physician Documentation [facility] Name: Erika Conde Age: 33 yrs Sex: Female : 1990 Arrival Date: 01/30/2024 Time: 17:18 Bed 15 Private MD: ED Physician Mars Lozada HPI: 01/29 17:45 This 33 yrs old Female presents to ER via Ambulatory with complaints of 25 wks ec2 , Abdominal Pain, Vomiting/Diarrhea. 17:45 Patient arrives today for evaluation of upper abdominal pain along with associated ec2 nausea and vomiting. Patient reports that she has been experiencing discomfort since this morning. Patient reports she is approximately 25 weeks , has not had any complications. Patient reports decreased p.o. intake. Reports 5 previous pregnancies, 4 live and 1 with .. 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 - Infectious Disease History:: Denies. - Social history:: Smoking status: Patient denies any tobacco usage or history of. ROS: 18:05 Constitutional: as per hpi ec2 Exam: 17:45 Constitutional: GEN: NAD Head: atraumatic Eyes: EOMI Ears: External ears are ec2 normal. CV: regular rate LUNGS: no respiratory distress ABD: non-distended, gravid uterus, no guarding, not rigid SKIN: no evidence of rashes MSK: no evidence of trauma NEURO: moves all extremities equally Vital Signs: 17:34 BP 111 / 70; Pulse 98; Resp 18; Temp 97.8; Pulse Ox 100% ; Weight 88 kg; Height 5 ft. 6 mb9 in. ; 19:23 BP 114 / 64; Pulse 80; Pulse Ox 100% on R/A; Pain 0/10; tm6 19:45 BP 113 / 69; Pulse 75; Resp 19; Temp 97.1(TE); Pulse Ox 100% on R/A; Pain 0/10; tm6 17:34 Body Mass Index 31.31 (88.00 kg, 167.64 cm) mb9 19:23 Pain Scale: Adult tm6 19:45 Pain Scale: Adult tm6 MDM: 17:28 Patient medically screened. ec2 17:45 Data reviewed: vital signs. ED course: Patient arrives today for evaluation of nausea ec2 and vomiting along with abdominal pain. Examination remarkable for well-appearing and hemodynamically stable individual is otherwise in no acute distress with a reassuring examination. Will obtain ultrasound to evaluate status, will obtain lab work to evaluate for dehydration as well. Differential diagnosis as above, additionally electrolyte disturbances, anemia. Will give the patient crystalloid and Zofran as well.. 19:32 ED course: CBC shows slight leukocytosis at 12.6. Slight anemia noted at 10.4. ec2 Metabolic profile shows improved electrolytes, appropriate renal function. hCG is appropriately elevated. Ultrasound shows live IUP with no abnormalities. . 19:35 ED course: On reassessment patient is well-appearing and in no acute distress. Will ec2 discharge home and have her follow-up with primary care doctor. Return precautions given. 19:38 ED course: MDM: Differential diagnosis as documented above in ED course; All lab tests ec2 ordered and reviewed as documented above; . 01/29 17:44 Order name: CBC with Diff; Complete Time: 19:31 ec2 01/29 17:44 Order name: CMP; Complete Time: 19:31 ec2 01/29 17:45 Order name: HCG-Quantitative; Complete Time: 19:31 ec2 01/29 17:28 Order name: US OB Limited; Complete Time: 19:31 ec2 Administered Medications: 18:15 Drug: Acetaminophen PO 1000 mg PO once Route: PO; bp 18:15 Drug: NS 0.9% IV 1000 ml IV at 1 bolus Per protocol; 1000 mL bolus Route: IV; Rate: 1 bp bolus; Site: right forearm; 19:47 Follow up: IV Status: Completed infusion; IV Intake: 1000ml tm6 18:15 Drug: Ondansetron IVP 4 mg IVP once; over 2 minutes Route: IVP; Site: right forearm; bp Disposition Summary: 01/30/24 19:36 Discharge Ordered Notes: Location: Home ec2 Condition: Stable ec2 Diagnosis - Nausea with vomiting, unspecified ec2 - Upper abdominal pain, unspecified ec2 Followup: ec2 - With: Private Physician - When: - Reason: Re-evaluation by your physician Discharge Instructions: - Discharge Summary Sheet ec2 Forms: - Medication Reconciliation Form ec2 - Antibiotic Education ec2 - Prescription Opioid Use ec2 - Patient Portal Instructions ec2 - Leadership Thank You Letter ec2 Prescriptions: - Zofran 4 mg Oral Tablet - take 1 tablet ORAL route every 12 hours As needed; 20 tablet; Refills: 0, ec2 Product Selection Permitted Signatures: Dispatcher [employer] EDGian Aj, RN RN Elena Nguyen RN RN mb9 Mars Lozada MD MD ec2 Judith Carrasco RN tm6 Corrections: (The following items were deleted from the chart) 17:44 17:44 CBC+H.LAB.BRZ ordered. EDMS EDMS 17:44 17:44 COMPREHENSIVE METABOLIC PANEL+C.LAB.BRZ ordered. EDMS EDMS 17:46 17:45 QUANTITATIVE HCG+C.LAB.BRZ ordered. EDMS EDMS
--- NOTE | 2024-01-30 19:36 | ER ---
Nurse's Notes [facility] Name: Erika Conde Age: 33 yrs Sex: Female : 1990 Arrival Date: 01/30/2024 Time: 17:18 Bed 15 Private MD: Diagnosis: Nausea with vomiting, unspecified;Upper abdominal pain, unspecified Presentation: 01/29 17:34 Chief complaint: Patient states: "I'm 25 weeks and today started having N/V, mb9 upper abdominal pain that radiates to my back.". Coronavirus screen: Vaccine status: Patient reports being unvaccinated. Ebola Screen: No symptoms or risks identified at this time. Initial Sepsis Screen: Does the patient meet any 2 criteria? No. Patient's initial sepsis screen is negative. Does the patient have a suspected source of infection? No. Patient's initial sepsis screen is negative. Risk Assessment: Do you want to hurt yourself or someone else? Patient reports no desire to harm self or others. Onset of symptoms was January 30, 2024. 17:34 Method Of Arrival: Ambulatory mb9 17:34 Acuity: GERHARD 3 mb9 Triage Assessment: 17:45 General: Appears uncomfortable, Behavior is calm, cooperative, appropriate for age. bp Pain: Complains of pain in abdomen. GI: GRAVID. : Reports . PRESIDENT CELEBRITY ACQUISTION: 19:47 Verified tm6 Historical: - Allergies: 17:34 No Known Allergies; mb9 - PMHx: 17:34 Asthma; mb9 - PSHx: 17:34 None; mb9 - Immunization history:: Adult Immunizations up to date. - Infectious Disease History:: Denies. - Social history:: Smoking status: Patient denies any tobacco usage or history of. Screenin:45 [facility] ED Fall Risk Assessment (Adult) History of falling in the last 3 months, bp including since admission No falls in past 3 months (0 pts). Abuse screen: Denies threats or abuse. Denies injuries from another. Nutritional screening: No deficits noted. Tuberculosis screening: No symptoms or risk factors identified. Assessment: 17:45 General: Appears in no apparent distress. uncomfortable, Behavior is calm, cooperative, bp appropriate for age. Pain: Complains of pain in abdomen. Neuro: No deficits noted. Cardiovascular: No deficits noted. Respiratory: No deficits noted. GI: Bowel sounds present X 4 quads. GRAVID. 19:24 Reassessment: Patient and/or family updated on plan of care and expected duration. Pain tm6 level reassessed. Patient is alert, oriented x 3, equal unlabored respirations, skin warm/dry/pink. still feels a little nauseous. 19:46 Reassessment: Patient and/or family updated on plan of care and expected duration. Pain tm6 level reassessed. Patient is alert, oriented x 3, equal unlabored respirations, skin warm/dry/pink. Vital Signs: 17:34 BP 111 / 70; Pulse 98; Resp 18; Temp 97.8; Pulse Ox 100% ; Weight 88 kg; Height 5 ft. 6 mb9 in. ; 19:23 BP 114 / 64; Pulse 80; Pulse Ox 100% on R/A; Pain 0/10; tm6 19:45 BP 113 / 69; Pulse 75; Resp 19; Temp 97.1(TE); Pulse Ox 100% on R/A; Pain 0/10; tm6 17:34 Body Mass Index 31.31 (88.00 kg, 167.64 cm) mb9 19:23 Pain Scale: Adult tm6 19:45 Pain Scale: Adult tm6 ED Course: 17:20 Patient arrived in ED. mr 17:24 Mars Lozada MD is Attending Physician. ec2 17:34 Arm band placed on. mb9 17:35 Triage completed. mb9 17:40 Gian Burkett, RN is Primary Nurse. bp 17:45 Patient has correct armband on for positive identification. bp 18:06 US OB Limited In Process Unspecified. EDMS 18:15 Inserted saline lock: 22 gauge in right forearm, using aseptic technique. Blood bp collected. 19:24 No provider procedures requiring assistance completed. tm6 19:25 Provided Education on: use of call gandhi. tm6 19:46 IV discontinued, intact, bleeding controlled, No redness/swelling at site. Pressure tm6 dressing applied. Administered Medications: 18:15 Drug: Acetaminophen PO 1000 mg PO once Route: PO; bp 18:15 Drug: NS 0.9% IV 1000 ml IV at 1 bolus Per protocol; 1000 mL bolus Route: IV; Rate: 1 bp bolus; Site: right forearm; 19:47 Follow up: IV Status: Completed infusion; IV Intake: 1000ml tm6 18:15 Drug: Ondansetron IVP 4 mg IVP once; over 2 minutes Route: IVP; Site: right forearm; bp Medication: 17:45 VIS not applicable for this client. bp Intake: 19:47 IV: 1000ml; Total: 1000ml. tm6 Outcome: 19:36 Discharge ordered by . ec2 19:46 Discharged to home ambulatory, with family, tm6 19:46 Condition: stable 19:46 Discharge instructions given to patient, family, Instructed on discharge instructions, follow up and referral plans. medication usage, Demonstrated understanding of instructions, follow-up care, medications, Prescriptions given X 1, 19:47 Patient left the ED. tm6 Signatures: Dispatcher [employer] Elena Mccartney, Gian Kruse, RN RN Elena Angel, RN RN mb9 Mars Lozada MD MD ec2 Judith Carrasco RN RN tm6
[2024-01-30 20:23] VITALS: BP 113/69; TEMP 97.1; O2SAT 100
== END 2024-01-30 19:47 | disposition home or self-care (01) ==
LOC: ER 17:18
DX: O21.9 Vomiting of pregnancy, unspecified (principal); O26.892 Other specified pregnancy related conditions, second trimester; Z3A.25 25 weeks gestation of pregnancy
CPT/HCPCS: 36415; 76815; 80053; 84702; 85025; 96361; 96374; 99284; J2405; J7030

== ENCOUNTER 2025-04-19 16:43 | Emergency (ER) | payer SELFPAY ==
--- OUTSIDE RECORDS SUMMARY | 2025-04-19 17:00 | XMS REPORT | Continuity of Care Document ---
Author Name Unknown Address [address] [facility] [place] [address] Organization [facility] [place] Address [address] [facility] [address] [place] [address] Care Team Providers Care Acquisition Associate Name Role Phone Joanie Sebastian Primary Care Physicia n Damaso Zee Attending Clinician Unavail able Etelvina Salcedo MA Attending Clinician Unamichel ailMeghan Herbert Attending Clinician UnavailJOANIE Hood Attending Clinician Unavail able HANH MCDONALD Attending Clinician Unavailable [facility] Attending Clinician Unavailable Hanh Mcdonald MD Attending Clinician [phone] LAVON ROBB Attending Clinician Unavailable Lavon Robb MD Attending Clinician + [phone] [facility] Attending Clinician Unavailable Akinsipe WHCNP, Joanie Cardoso Attending Clinician + LEE ANN HUSSEIN Attending Clinician Unavailable Lee Ann Hussein MD Attending Clinician [phone] MISTY HOOKER Attending Clinician Unavailable Walter ATKINSONPMisty Attending Clinician [phone] BHAVNA JEMALISRA Arceo Attending Clinician Unavailab OTILIA Ibrahim Attending Clinician Unavailable Otilia Ortiz S Attending Clinician [phone] MARVA HOLCOMB Attending Clinician Unavailable Marva Holcomb MD Attending Clinician [phone] Eder MONTGOMERY, Elena Holm Attending Clinician [phone] Yaima Julio Attending Clinician [phone] Rosendo aVnce MD Attending Clinician [phone] Mauro Pruitt MD Attending Clinician [phone] [facility]ending [facility] Unava ilable Doctor Unassigned, Knapp Attending Clinician U navailable Damaso Zee Admitting Clinician Unavail able LEE ANN HUSSEIN Admitting Clinician Unavailable MISTY HOOKER Admitting Clinician Unavailable OTILIA BRITTON Admitting Clinician Unavailable Rosendo Vance MD Admitting Clinician [phone] Payers Payer Name Policy Type Policy Number Effective Date Expirati on Date Source [employer] [employer] [id number] 2022 00:00:00 Problems Condition Name Condition Details Condition Category Status Onset Date Resolution Date Last Treatment Date Treating Clinician Comments Source Miscarriag e Miscarriag e Disease Active 09-26 00:00: 00 Overview: Formattin g of this note might be different from the original. Recent beta at [facility] [address] [facility] Complete Complete Disease Active 09-26 00:00: 00 Overview: Formattin g of this note might be different from the original. Recent beta at [facility] [facility] Abnormal maternal glucose tolerance, antepartum Abnormal maternal glucose tolerance, antepartum Disease Active 09-23 00:00: 00 Overview: Formattin g of this note might be different from the original. Pending 3hr gtt [facility] Supervisio n of high-risk Supervisio n of high-risk Disease Active 09-21 00:00: 00 [facility] Vaginal bleeding during Vaginal bleeding during Disease Active 09-21 00:00: 00 [facility] Trichomona l vaginitis during Trichomona l vaginitis during Disease Active 09-21 00:00: 00 Overview: Formattin g of this note might be different from the original. Dx at the ED on meds, pending demi [facility] UTI in UTI in Disease Active 09-21 00:00: 00 Overview: Formattin g of this note might be different from the original. Dx at the ED on meds, pending demi [facility] Multiparit y Multiparit y Disease Active 09-21 00:00: 00 [facility] Cellulitis of right buttock Cellulitis of right buttock Disease Active 6- 00:00: 00 [facility] Cellulitis of right buttock Cellulitis of right buttock Disease Active 6-02 00:00: 00 [facility] Obesity in Obesity in Disease Active 10-19 00:00: 00 [facility] Well woman exam Well woman exam Disease Active 10-19 00:00: 00 [facility] Contracept hermila management Contracept hermila management Disease Active 2 00:00: [address] [facility] Obesity (BMI 30-39.9) Obesity (BMI 30-39.9) Disease Active 2-22 00:00: 00 [facility] Vaginal symptom Vaginal symptom Disease Active 1-15 00:00: 00 [facility] History of asthma History of asthma Disease Active 1-04 00:00: 00 [facility] Contracept hermila management Contracept hermila management Disease Resolve d 2- 00:00: 00 2022-09-21 00:00:00 2022-09-21 15:03:31 [facility] care and examinatio n of lactating mother care and examinatio n of lactating mother Disease Resolve d 0 -24 00:00: 00 2018-10-19 00:00:00 2018-10-19 11:42:10 [facility] (spontaneo us vaginal delivery) (spontaneo us vaginal delivery) Disease Resolve d 2018-0 1-04 00:00: 00 2018-09-20 00:00:00 2018-09-20 14:24:37 [facility] Single live Single live Disease Resolve d 2018-0 1-04 00:00: 00 2018-09-20 00:00:00 2018-09-20 14:24:36 [facility] Disease Resolve d 0 1-02 00:00: 00 2018-09-20 00:00:00 2018-09-20 14:24:36 [facility] 39 weeks gestation of 39 weeks gestation of Disease Resolve d 2018-0 1-02 00:00: 00 2018-09-20 00:00:00 2018-09-20 14:24:15 [facility] Labor and delivery indication for care or interventi on Labor and delivery indication for care or interventi on Disease Resolve d 2018-0 1-02 00:00: 00 2018-09-20 00:00:00 2018-09-20 14:24:25 [facility] Carpal tunnel syndrome during Carpal tunnel syndrome during Disease Resolve d 2017-1 2-06 00:00: 00 2018-09-20 00:00:00 2018-09-20 14:24:20 [facility] Abnormal maternal glucose tolerance, antepartum Abnormal maternal glucose tolerance, antepartum Disease Resolve d 2017-1 0-17 00:00: 00 2018-09-20 00:00:00 2018-09-20 14:24:18 [facility] Obesity in , antepartum Obesity in , antepartum Disease Resolve d 2017-0 5-11 00:00: 00 2018-09-20 00:00:00 2018-09-20 14:24:30 [facility] High risk , antepartum High risk , antepartum Disease Resolve d 01-05 00:00: 00 2018-09-20 00:00:00 2018-09-20 14:24:22 [facility] Multigravi da, antepartum Multigravi da, antepartum Disease Resolve d 01-05 00:00: 00 2018-09-20 00:00:00 2018-09-20 14:24:28 [facility] Mild intermitte nt asthma without complicati on Mild intermitte nt asthma without complicati on Disease Resolve d 01-05 00:00: 00 2018-09-20 00:00:00 2018-09-20 14:24:27 [facility] PPD positive PPD positive Disease Resolve d 03-24 00:00: 00 2018-09-20 00:00:00 2018-09-20 14:24:35 [facility] Well woman exam Well woman exam Disease Resolve d 03-15 00:00: 00 2018-01-05 00:00:00 2018-01-05 10:27:00 [facility] Exposure to STD Exposure to STD Disease Resolve d 03-15 00:00: 00 2018-01-05 00:00:00 2018-01-05 10:27:09 [facility] Encounter for surveillan ce of contracept christine Encounter for surveillan ce of contracept christine Disease Resolve d 03-15 00:00: 00 2018-01-05 00:00:00 2018-01-05 10:27:42 [facility] Nexplanon in place Nexplanon in place Disease Resolve d 03-15 00:00: 00 2018-01-05 00:00:00 2018-01-05 10:27:38 [facility] Metrorrhag ia Metrorrhag ia Disease Resolve d 03-15 00:00: 00 2018-01-05 00:00:00 2018-01-05 10:26:48 [facility] Obesity, unspecifie d Obesity, unspecifie d Disease Resolve d 03-15 00:00: 00 2018-01-05 00:00:00 2018-01-05 10:27:35 [facility] Allergies, Adverse Reactions, Alerts Allergy Name Allergy Type Status Severity Reaction(s) Onset Date Inactive Date Treating Clinician Comments Source No Known Allergie s DA Active U 05-05 00:00: 00 [facility] No Known Allergie s DA Active U 04-22 00:00: 00 [facility] NO KNOWN ALLERGIE S Drug Class Active [facility] Social History Social Habit Start Date Stop Date Quantity Comments Source ASSERTION 2022-08-25 00:00:00 [facility] intake 2022-10-13 00:00:00 2022-10-13 00:00:00 Current non-drinker of alcohol (finding) [facility] Exposure to SARS-CoV-2 (event) 2022-09-17 00:00:00 2022-09-27 08:53:00 Not sure [facility] History of Social function 2022-09-21 00:00:00 2022-09-21 00:00:00 [facility] Alcoholic beverage intake 2018-05-25 00:00:00 2018-05-25 00:00:00 Current non-drinker of alcohol (finding) [facility] Tobacco use and exposure 2017-03-15 00:00:00 2017-03-15 00:00:00 Smokeless tobacco non-user [facility] Sex assigned at 1990 00:00:00 1990 00:00:00 [facility] Smoking Status Start Date Stop Date Source Never smoked tobacco [facility] Medications Ordered Medication Name Filled Medication Name Start Date Stop Date Current Medication? Ordering Clinician Indication Dosage Frequency Signature (SIG) Comments Components Source amoxicillin 875 mg-potassiu m clavulanate 125 mg tablet 04-17 00:00: 00 Yes 1mg [facility] ibuprofen 800 mg tablet 04-17 00:00: 00 Yes 1mg Peter Nick Rolly Bromfed DM 2 mg-30 mg-10 mg/5 mL oral syrup - 00:00: 00 Yes 10mg/5 mL [facility] Tylenol Extra Strength 500 mg tablet -18 00:00: 00 Yes 1mg [facility] Macrobid 100 mg capsule 18 00:00: 00 Yes 1mg [facility] Zanaflex 4 mg tablet 8- 00:00: 00 Yes 1mg [facility] ibuprofen 800 mg tablet 04-01 00:00: 00 Yes 1mg [facility] cetirizine 10 mg tablet 2023-08 00:00: 00 Yes 1mg [facility] Flonase Allergy Relief 50 mcg/actuati on nasal spray,suspe nsion 2023-08 00:00: 00 Yes 1mcg/ac tuation [facility] Miconazole- 7 100 mg vaginal suppository 03-25 00:00: 00 Yes 1mg [facility] Macrobid 100 mg capsule 03-25 00:00: 00 Yes 1mg [facility] Clotrimazol e-7 1 % vaginal cream 03-20 00:00: 00 Yes 1% [facility] metronidazo le 500 mg tablet 03-20 00:00: 00 Yes 1mg [facility] metronidazo le 500 mg tablet 03-19 00:00: 00 Yes 1mg [facility] Clotrimazol e-7 1 % vaginal cream 03-15 00:00: 00 Yes 1% [facility] Clotrimazol e-7 1 % vaginal cream 02-20 00:00: 00 Yes 1% [facility] ferrous sulfate 325 mg (65 mg iron) tablet,preston yed release 02-13 00:00: 00 Yes 1(65 mg iron) [facility] metronidazo le 500 mg tablet -20 00:00: 00 Yes 1mg [facility] Qvar RediHaler 40 mcg/actuati on HFA breath activated aerosol 4-16 00:00: 00 Yes 1mcg/ac tuation [facility] albuterol sulfate 2.5 mg/3 mL (0.083 %) solution for nebulizatio n 12-11 00:00: 00 Yes 1/3 mL (0.083 %) [facility] prednisone 20 mg tablet 12-11 00:00: 00 Yes 1mg [facility] benzonatate 100 mg capsule 12-11 00:00: 00 Yes 1mg [facility] albuterol sulfate 2.5 mg/3 mL (0.083 %) solution for nebulizatio n 12-09 00:00: 00 Yes 1/3 mL (0.083 %) [facility] aspirin 81 mg tablet,preston yed release 10-30 00:00: 00 Yes 1mg Peter Lofton TAKE 1 TABLET BY MOUTH EVERY 8 HOURS 12-06 00:00: 00 01-03 00:00 :00 No Peter Lofton TAKE 1 TABLET BY MOUTH TWICE DAILY AFTER A MEAL 12-06 00:00: 00 01-03 00:00 :00 No [facility] ibuprofen (IBU) tablet 800 mg 09-27 16:30: 00 09-27 15:49 :[id number] [facility] ibuprofen 600 mg tablet 09-27 00:00: 00 Yes [id number] 600mg Take 1 tablet by mouth every 6 (six) hours as needed (alternate with tylenol for pain) for up to [address] [facility] ALBUTEROL SULFATE INHALE 09-21 14:43: 24 09-21 00:00 :00 No 1{puff} Inhale 1 Puff every 8 (eight) hours as needed for Other (Wheezing) . [facility] metroNIDAZO LE 500 mg tablet 09-20 00:00: 00 Yes TAKE 4 TABLETS BY MOUTH ONCE DAILY NOW FOR [address] [facility] Nitrofurant oin&Nit. Macrocryst (MACROBID) 100 mg capsule 09-20 00:00: 00 Yes [id number] 100mg Take 1 capsule by mouth 2 (two) times daily. [facility] NaCl 0.9% (NS) bolus infusion 1,000 mL 11-09 23:45: 00 11-10 01:15 :00 No 1000mL at 999 mL/hr, 1,000 mL, IV Infusion, ONCE, 1 dose, On Mon11/09/21 at 1845, [facility] ketorolac (TORADOL) injection 30 mg 11-09 23:45: 00 11-09 23:36 :00 No 30mg 30 mg, Slow IV Push, ONCE, 1 dose, On Mon11/09/21 at 1845, [facility] ondansetron (ZOFRAN (PF)) injection 4 mg 11-09 23:45: 00 11-09 23:36 :00 No 4mg 4 mg, Slow IV Push, ONCE, 1 dose, On Mon11/09/21 at 1845, [facility] benzonatate 100 mg capsule 11-09 00:00: 00 Yes [id number] 100mg Take 1 capsule by mouth 3 (three) times daily as needed for Cough. [facility] ondansetron (ZOFRAN) 4 mg tablet 11-09 00:00: 00 Yes [id number] 4mg Take 1 tablet by mouth every 8 (eight) hours as needed for Nausea and Vomiting (N/V). [facility] predniSONE 20 mg tablet 11-09 00:00: 00 11-15 04:59 :00 No [id number] 40mg Take 2 tablets by mouth daily for [address] [facility] ipratropium -albuteroL (DUONEB) 0.5 mg-3 mg(2.5 mg base)/3 mL nebulizer solution 3 mL 2020-08 09:30: 00 08-06 08:37 :00 No 3mL 3 mL, Inhalation , ONCE, 1 dose, On Mon08/06/21 at 0330, Routine [facility] dexamethaso ne (DECADRON PHOSPHATE) injection 10 mg 2020-08 09:30: 00 08-06 08:27 :00 No 10mg 10 mg, Oral, ONCE, 1 dose, On Mon08/06/21 at 0330, STAT [facility] ipratropium -albuteroL (DUONEB) 0.5 mg-3 mg(2.5 mg base)/3 mL nebulizer solution 3 mL 2020-08 07:45: 00 08-06 06:51 :00 No 3mL 3 mL, Inhalation , ONCE, 1 dose, On Mon08/06/21 at 0145, Routine [facility] predniSONE 50 mg tablet 2020-08 00:00: 00 Yes [id number] 50mg Take 1 tablet by mouth daily. [facility] albuterol 90 mcg/actuati on inhaler 2020-08 00:00: 00 Yes [id number] 2{puff} Inhale 2 Puffs every 4 (four) hours as needed for Wheezing or Shortness of Breath. [facility] albuterol 2.5 mg /3 mL (0.083 %) nebulizer solution 2020-08 00:00: 00 09-21 00:00 :00 No [id number] 2.5mg Inhale 3 mL every 4 (four) hours. May also nebulize one extra every [address] [facility] ALBUTEROL SULFATE INHALE 02-16 21:27: 26 Yes 1{puff} Inhale 1 Puff every 8 (eight) hours as needed for Other (Wheezing) . [facility] ALBUTEROL SULFATE INHALE 02-16 16:27: 26 Yes 1{puff} Inhale 1 Puff every 8 (eight) hours as needed for Other (Wheezing) . [facility] ALBUTEROL SULFATE INHALE 01-29 17:25: 36 Yes 1{puff} Inhale 1 Puff every 8 (eight) hours as needed for Other (Wheezing) . [facility] KCL (KLOR-CON M20) tablet 40 mEq 01-29 15:30: 00 01-29 16:35 :00 No 40meq 40 mEq, Oral, ONCE, 1 dose, Mon01/29/21 at 1030, Routine [facility] morpHINE injection 2 mg 01-29 05:30: 00 01-29 04:25 :00 No 2mg 2 mg, Slow IV Push, ONCE, 1 dose, Mon01/29/21 at 0030, Routine [facility] acidophilus 100 million cell tablet 01-29 00:00: 00 Yes [id number] 1g Take 1 tablet by mouth 2 (two) times daily. [facility] sulfamethox azole-trime thoprim (BACTRIM DS) 800-160 mg per tablet 01-29 00:00: 00 02-06 04:59 :00 No [id number] 1{tbl} Take 1 tablet by mouth 2 (two) times daily for [address] [facility] ALBUTEROL SULFATE INHALE 01-28 14:37: 52 Yes 1{puff} Inhale 1 Puff every 8 (eight) hours as needed for Other (Wheezing) . [facility] albuterol (PROVENTIL) 2.5 mg /3 mL (0.083 %) nebulizer solution 2.5 mg 01-28 14:37: 36 Yes 2.5mg 2.5 mg, Inhalation , Q6HPRN, Starting Poppy 01/28/21 at 0937, Until Discontinu ed, Shortness of Breath, Wheezing [facility] morpHINE injection 2 mg 01-28 13:17: 25 01-28 21:16 :25 No 2mg 2 mg, Slow IV Push, Q6HPRN, Starting Mon01/28/21 at 0817, Until Mon01/28/21 at 1616, Routine, Pain (scale 7-10) [facility] ketorolac (TORADOL) injection 30 mg 01-27 22:08: 51 01-27 22:09 :00 No 30mg 30 mg, Slow IV Push, PRN, 1 dose, Starting Mon01/27/21 at 1708, Until Mon01/27/21 at 1709, Routine, Pain (scale 4-6), PACU
[facility] member approving Restricted medication : MAURO PRUITT [facility] enoxaparin (LOVENOX) injection 40 mg 01-27 22:00: 00 Yes 40mg 40 mg, Subcutaneo us, DAILY, First dose on Mon01/27/21 at 1700, Until Discontinu ed, Routine [facility] morpHINE injection 2 mg 01-27 21:45: 35 01-27 22:22 :02 No 2mg 2 mg, Slow IV Push, Q5MIN PRN, 5 doses, Starting Mon01/27/21 at 1645, Until Mon01/27/21 at 1722, Routine, Pain (scale 4-6), PACU [facility] HYDROcodone -acetaminop hen (NORCO) 10-325 mg tablet 1 tablet 01-27 21:34: 03 Yes 1{tbl} 1 tablet, Oral, Q6HPRN, Starting Mon01/27/21 at 1634, Until Discontinu ed, Routine, Pain (scale 4-6) [facility] HYDROcodone -acetaminop hen (NORCO 5) 5-325 mg tablet 1 tablet 01-27 21:33: 48 Yes 1{tbl} 1 tablet, Oral, Q6HPRN, Starting Mon01/27/21 at 1633, Until Discontinu ed, Routine, Pain (scale 1-3) [facility] PHENYLephri ne 1000 mcg/10 mL in 0.9% NaCl syringe 01-27 21:16: 00 01-27 21:36 :50 No Slow IV Push, ONCE INTRA PROCEDURE, Starting Mon01/27/21 at 1616, Until Mon01/27/21 at 1636, Routine, Intra-op [facility] ondansetron (ZOFRAN (PF)) injection 01-27 21:14: 00 01-27 21:36 :50 No Slow IV Push, ONCE INTRA PROCEDURE, Starting Mon01/27/21 at 1614, Until Mon01/27/21 at 1636, Routine, [facility]-op [facility] dexamethaso ne (DECADRON PHOSPHATE) injection 01-27 21:12: 00 01-27 21:36 :50 No IV Push, ONCE INTRA PROCEDURE, Starting Mon01/27/21 at 1612, Until Mon01/27/21 at 1636, Routine, Intra-op [facility] lidocaine 1% (XYLOCAINE) 100 mg/10 mL (1 %) injection 01-27 21:07: 00 01-27 21:36 :50 No Intravenou s, ONCE INTRA PROCEDURE, Starting Mon01/27/21 at 1607, Until Mon01/27/21 at 1636, Routine, Intra-op [facility] propofoL IV infusion 01-27 21:07: 00 01-27 21:36 :50 No Intravenou s, ONCE INTRA PROCEDURE, Starting Mon01/27/21 at 1607, Until Mon01/27/21 at 1636, Routine, Intra-op [facility] FENTanyl PF (SUBLIMAZE (PF)) injection 01-27 21:07: 00 01-27 21:36 :50 No Intravenou s, ONCE INTRA PROCEDURE, Starting Mon01/27/21 at 1607, Until Mon01/27/21 at 1636, Routine, Intra-op [facility] midazolam (VERSED) injection 01-27 20:57: 00 01-27 21:36 :50 No IV Push, ONCE INTRA PROCEDURE, Starting Mon01/27/21 at 1557, Until Mon01/27/21 at 1636, Routine, Intra-op [facility] lactated ringers IV infusion 01-27 20:57: 00 01-27 21:36 :50 No IV Infusion, CONTINUOUS PRN, Starting Mon01/27/21 at 1557, Until Mon01/27/21 at 1636, Routine, Intra-op [facility] vancomycin 1500 mg in NS 500 mL IV Piggyback RTU 1,500 mg 01-27 16:00: 00 Yes 1500mg 1,500 mg, IV Infusion, Q12H ABX, First dose on Mon01/27/21 at 1100, Until Discontinu ed
Reas on for Anti-Infec tive: Documented Infection< br>Documen mariah Infection Site: Skin / Soft Tissue
Duration of Therapy: [address] [facility] piperacilli n-tazobacta m (ZOSYN) 3.375 g in NaCl 0.9% (NS) 100 mL MINI-BAG 01-27 13:00: 00 Yes 3.375g 3.375 g, IV Piggyback, Q6H ABX, First dose (after last reorder) on Mon01/27/21 at 0800, Until Discontinu ed, 100 mL
Reas on for Anti-Infec tive: Documented Infection< br>Documen mariah Infection Site: Skin / Soft Tissue
Duration of Therapy: Other (see Comments) [facility] NaCl 0.9% (NS) IV infusion 1,000 mL 01-27 11:45: 00 01-28 13:18 :05 No 1000mL at 125 mL/hr, IV Infusion, CONTINUOUS , Starting Mon01/27/21 at 0645, Until Poppy 01/28/21 at 0818, Routine [facility] NaCl 0.9% (NS) IV infusion 2,000 mL 01-27 07:15: 00 01-27 07:36 :00 No 2000mL at 125 mL/hr, IV Infusion, ONCE, 1 dose, Mon01/27/21 at 0215, Routine [facility] ondansetron (ZOFRAN (PF)) injection 4 mg 01-27 06:12: 31 Yes 4mg 4 mg, Slow IV Push, Q6HPRN, Starting Mon01/27/21 at 0112, Until Discontinu ed, Routine, Nausea and Vomiting (N/V) [facility] morpHINE injection 2 mg 01-27 06:12: 24 01-27 21:34 :15 No 2mg 2 mg, Slow IV Push, Q4HPRN, Starting Mon01/27/21 at 0112, Until Mon01/27/21 at 1634, Routine, Pain (scale 7-10) [facility] piperacilli n-tazobacta m (ZOSYN) 3.375 g in NaCl 0.9% (NS) 100 mL MINI-BAG 01-27 04:15: 00 01-27 03:40 :00 No 3.375g 3.375 g, IV Piggyback, ONCE, 1 dose, 01/26/21 at 2315, 100 mL
Reas on for Anti-Infec tive: Documented Infection< br>Documen mariah Infection Site: Skin / Soft Tissue
Duration of Therapy: Other (see Comments) [facility] vancomycin (VANCOCIN) 1,000 mg in NaCl 0.9% (NS) 250 mL VIAL-MATE IV piggyback 01-27 04:00: 00 01-27 04:57 :00 No 1000mg 1,000 mg, IV Piggyback, ONCE, 1 dose, 01/26/21 at 2300, 250 mL
Reas on for Anti-Infec tive: Documented Infection< br>Documen mariah Infection Site: Skin / Soft Tissue
Duration of Therapy: Other (see Comments) [facility] iopamidol (ISOVUE 370-500 mL) injection 120 mL 01-27 04:00: 00 01-27 02:50 :00 No [id number] 120mL 120 mL, Intravenou s, ONCE, 1 dose, 01/26/21 at 2300, Routine [facility] NaCl 0.9% (NS) bolus infusion 1,000 mL 01-27 03:45: 00 01-27 03:57 :00 No 1000mL at 999 mL/hr, 1,000 mL, IV Infusion, ONCE, 1 dose, 01/26/21 at 2245, STAT [facility] ondansetron (ZOFRAN (PF)) injection 4 mg 01-27 03:30: 00 01-27 02:19 :00 No 4mg 4 mg, Slow IV Push, ONCE, 1 dose, 01/26/21 at 2230, [facility]HAELA [facility] morpHINE injection 4 mg 01-27 03:30: 00 01-27 02:18 :00 No 4mg 4 mg, Slow IV Push, ONCE, 1 dose, Mon01/26/21 at 2230, STAT [facility] medroxyPROG ESTERone (DEPO-PROVE RA) injection 150 mg 10-19 18:00: 00 09-20 17:59 :00 No [id number] 150mg 150 mg, Intramuscu lar, [id number], 4 doses, First dose on Mon10/19/18 at 1200, Last dose on Mon06/28/19 at 1200, Routine [facility] albuterol 2.5 mg/0.5 mL nebulizer solution 10-25 00:00: 00 Yes 2.5mg Use 0.5 mL as directed every 6 (six) hours as needed for Wheezing. [facility] Immunizations Ordered Immunization Name Filled Immunization Name Date Status Comments Source Tdap Tdap 2024-03-01 00:00:00 Completed [facility] Influenza Virus Vaccine Quad .5 mL IM 6+ MO 2018-08-02 00:00:00 Completed [facility] Influenza Virus Vaccine Quad .5 mL IM 6+ MO 2018-08-02 00:00:00 Completed [facility] Influenza Virus Vaccine Quad .5 mL IM 6+ MO 2018-08-02 00:00:00 Completed [facility] Influenza Virus Vaccine Quad .5 mL IM 6+ MO 2018-08-02 00:00:00 Completed [facility] Influenza Virus Vaccine Quad .5 mL IM 6+ MO 2018-08-02 00:00:00 Completed [facility] Influenza Virus Vaccine Quad .5 mL IM 6+ MO 2018-08-02 00:00:00 Completed [facility] Influenza Virus Vaccine Quad .5 mL IM 6+ MO 2018-08-02 00:00:00 Completed [facility] Influenza Virus Vaccine Quad .5 mL IM 6+ MO 2018-08-02 00:00:00 Completed [facility] Influenza Virus Vaccine Quad .5 mL IM 6+ MO 2018-08-02 00:00:00 Completed [facility] Influenza Virus Vaccine Quad .5 mL IM 6+ MO 2018-08-02 00:00:00 Completed [facility] Influenza Virus Vaccine Quad .5 mL IM 6+ MO 2018-08-02 00:00:00 Completed [facility] Influenza Virus Vaccine Quad .5 mL IM 6+ MO 2018-08-02 00:00:00 Completed [facility] Influenza Virus Vaccine Quad .5 mL IM 6+ MO 2018-08-02 00:00:00 Completed [facility] Influenza Virus Vaccine Quad .5 mL IM 6+ MO 2018-08-02 00:00:00 Completed [facility] Influenza Virus Vaccine Quad .5 mL IM 6+ MO 2018-08-02 00:00:00 Completed [facility] Influenza Virus Vaccine Quad .5 mL IM 6+ MO 2018-08-02 00:00:00 Completed [facility] Influenza Virus Vaccine Quad .5 mL IM 6+ MO 2018-08-02 00:00:00 Completed [facility] TDAP 2018-06-19 00:00:00 Completed [facility] TDAP 2018-06-19 00:00:00 Completed [facility] TDAP 2018-06-19 00:00:00 Completed [facility] TDAP 2018-06-19 00:00:00 Completed [facility] TDAP 2018-06-19 00:00:00 Completed [facility] TDAP 2018-06-19 00:00:00 Completed [facility] TDAP 2018-06-19 00:00:00 Completed [facility] TDAP 2018-06-19 00:00:00 Completed [facility] TDAP 2018-06-19 00:00:00 Completed [facility] Tdap 2018-06-19 00:00:00 Completed [facility] TDAP 2018-06-19 00:00:00 Completed [facility] TDAP 2018-06-19 00:00:00 Completed [facility] TDAP 2018-06-19 00:00:00 Completed [facility] Tdap 2018-06-19 00:00:00 Completed [facility] TDAP 2018-06-19 00:00:00 Completed [facility] TDAP 2018-06-19 00:00:00 Completed [facility] TDAP 2018-06-19 00:00:00 Completed [facility] PPD (TB) 2017-03-22 00:00:00 Completed [facility] PPD (TB) 2017-03-22 00:00:00 Completed [facility] PPD (TB) 2017-03-22 00:00:00 Completed [facility] PPD (TB) 2017-03-22 00:00:00 Completed [facility] PPD (TB) 2017-03-22 00:00:00 Completed [facility] PPD (TB) 2017-03-22 00:00:00 Completed [facility] PPD (TB) 2017-03-22 00:00:00 Completed [facility] PPD (TB) 2017-03-22 00:00:00 Completed [facility] PPD (TB) 2017-03-22 00:00:00 Completed [facility] PPD (TB) 2017-03-22 00:00:00 Completed [facility] PPD (TB) 2017-03-22 00:00:00 Completed [facility] PPD (TB) 2017-03-22 00:00:00 Completed [facility] PPD (TB) 2017-03-22 00:00:00 Completed [facility] PPD (TB) 2017-03-22 00:00:00 Completed [facility] PPD (TB) 2017-03-22 00:00:00 Completed [facility] PPD (TB) 2017-03-22 00:00:00 Completed [facility] PPD (TB) 2017-03-22 00:00:00 Completed [facility] PPD (TB) 2017-03-22 00:00:00 Completed [facility] Vital Signs Vital Name Observation Time Observation Value Comments S ource Systolic blood pressure 2022-09-27 14:52:00 107 mm[Hg] [place] [facility] Diastolic blood pressure 2022-09-27 14:52:00 78 mm[Hg] [place] [facility] Heart rate 2022-09-27 14:52:00 66 /min [facility] Body temperature 2022-09-27 14:52:00 36.78 Brisa [facility] Respiratory rate 2022-09-27 14:52:00 18 /min [facility] Body height 2022-09-27 14:52:00 152.4 cm Univ [facility] Body weight 2022-09-27 14:52:00 82.101 kg [facility] BMI 2022-09-27 14:52:00 35.35 kg/m2 [facility] Systolic blood pressure 2022-09-21 20:36:00 118 mm[Hg] [facility] Diastolic blood pressure 2022-09-21 20:36:00 78 mm[Hg] [facility] Heart rate 2022-09-21 20:36:00 104 /min [facility] Body temperature 2022-09-21 20:36:00 36.61 Brisa [facility] Respiratory rate 2022-09-21 20:36:00 18 /min [facility] Body height 2022-09-21 20:36:00 152.4 cm [facility] Body weight 2022-09-21 20:36:00 82.725 kg [facility] BMI 2022-09-21 20:36:00 35.62 kg/m2 [facility] Systolic blood pressure 2022-09-20 22:20:00 124 mm[Hg] [facility] Diastolic blood pressure 2022-09-20 22:20:00 79 mm[Hg] [facility] Heart rate 2022-09-20 22:20:00 69 /min [facility] Respiratory rate 2022-09-20 22:20:00 18 /min [facility] Oxygen saturation in Arterial blood by Pulse oximetry 2022-09-20 22:20:00 98 /min [facility] Body temperature 2022-09-20 14:24:00 36.72 Brisa [facility] Body height 2022-09-20 14:24:00 152.4 cm [facility] Body weight 2022-09-20 14:24:00 81.647 kg [facility] BMI 2022-09-20 14:24:00 35.15 kg/m2 [facility] Heart rate 2021-11-10 01:00:00 91 /min [facility] Body temperature 2021-11-10 01:00:00 37.94 Brisa [facility] Oxygen saturation in Arterial blood by Pulse oximetry 2021-11-10 01:00:00 99 /min [facility] Systolic blood pressure 2021-11-10 00:31:00 104 mm[Hg] [facility] Diastolic blood pressure 2021-11-10 00:31:00 68 mm[Hg] [facility] Respiratory rate 2021-11-10 00:31:00 18 /min [facility] Body height 2021-11-09 22:23:00 157.5 cm [facility] Body weight 2021-11-09 22:23:00 72.576 kg [facility] BMI 2021-11-09 22:23:00 29.26 kg/m2 [facility] Systolic blood pressure 2021-08-06 10:41:00 116 mm[Hg] [facility] Diastolic blood pressure 2021-08-06 10:41:00 79 mm[Hg] [facility] Heart rate 2021-08-06 10:41:00 88 /min [facility] Respiratory rate 2021-08-06 10:41:00 22 /min [facility] Oxygen saturation in Arterial blood by Pulse oximetry 2021-08-06 10:41:00 97 /min [facility] Body temperature 2021-08-06 06:47:00 37.33 Brisa [facility] Body height 2021-08-06 06:47:00 149.9 cm [facility] Body weight 2021-08-06 06:47:00 83.915 kg [facility] BMI 2021-08-06 06:47:00 37.37 kg/m2 [facility] Systolic blood pressure 2021-02-16 21:26:00 125 mm[Hg] [facility] Diastolic blood pressure 2021-02-16 21:26:00 87 mm[Hg] [facility] Heart rate 2021-02-16 21:26:00 80 /min [facility] Body temperature 2021-02-16 21:26:00 36.33 Brisa [facility] Respiratory rate 2021-02-16 21:26:00 16 /min [facility] Body weight 2021-02-16 21:26:00 81.194 kg Univ [facility] BMI 2021-02-16 21:26:00 36.09 kg/m2 [facility] Oxygen saturation in Arterial blood by Pulse oximetry 2021-02-16 21:26:00 99 /min [facility] Systolic blood pressure 2021-01-29 16:17:00 112 mm[Hg] [facility] Diastolic blood pressure 2021-01-29 16:17:00 79 mm[Hg] [facility] Body temperature 2021-01-29 16:17:00 36.72 Brisa [facility] Respiratory rate 2021-01-29 16:17:00 18 /min [facility] Oxygen saturation in Arterial blood by Pulse oximetry 2021-01-29 16:17:00 100 /min [facility] Heart rate 2021-01-29 14:00:00 77 /min [facility] Body weight 2021-01-28 08:45:00 84.959 kg [facility] BMI 2021-01-28 08:45:00 37.76 kg/m2 [facility] Body height 2021-01-27 20:48:00 150 cm Univ [facility] Body height 2021-01-27 20:48:00 150 cm Univ [facility] Body weight 2021-01-27 20:48:00 86.2 kg [facility] BMI 2021-01-27 20:48:00 37.76 kg/m2 [facility] Systolic blood pressure 2021-01-27 20:05:00 108 mm[Hg] [facility] Diastolic blood pressure 2021-01-27 20:05:00 67 mm[Hg] [facility] Heart rate 2021-01-27 20:05:00 90 /min [facility] Body temperature 2021-01-27 20:05:00 36.67 Brisa [facility] Respiratory rate 2021-01-27 20:05:00 20 /min [facility] Oxygen saturation in Arterial blood by Pulse oximetry 2021-01-27 20:05:00 100 /min [facility] Systolic blood pressure 2019-04-22 19:06:00 130 mm[Hg] [facility] Diastolic blood pressure 2019-04-22 19:06:00 82 mm[Hg] [facility] Heart rate 2019-04-22 19:06:00 84 /min [facility] Body temperature 2019-04-22 19:06:00 36 Brisa [facility] Respiratory rate 2019-04-22 19:06:00 16 /min [facility] Body height 2019-04-22 19:06:00 152.4 cm [facility] Body weight 2019-04-22 19:06:00 85.503 kg [facility] BMI 2019-04-22 19:06:00 36.81 kg/m2 [facility] BP Systolic 2025-04-17 09:12:00 100 mm[Hg] Step hen F Rolly BP Diastolic 2025-04-17 09:12:00 65 mm[Hg] Sameer phen F Rolly Weight Measured 2025-04-17 09:12:00 189.00 pounds Peter F Rolly Height Measured 2025-04-17 09:12:00 61.00 inches Peter F Rolly Body Temperature 2025-04-17 09:12:00 98.00 degrees Peter F Rolly Heart Rate 2025-04-17 09:12:00 89.00 /min Aparna en F Rolly Respiratory Rate 2025-04-17 09:12:00 16.00 /min Peter F Rolly BP Systolic 2025-04-14 08:28:00 105 mm[Hg] Step hen F Rolly BP Diastolic 2025-04-14 08:28:00 63 mm[Hg] Sameer phen F Rolly Weight Measured 2025-04-14 08:28:00 189.00 pounds Peter F Rolly Height Measured 2025-04-14 08:28:00 61.00 inches Peter F Rolly Body Temperature 2025-04-14 08:28:00 98.30 degrees Peter F Rolly Heart Rate 2025-04-14 08:28:00 73.00 /min Aparna en F Rolly Respiratory Rate 2025-04-14 08:28:00 Peter F Rolly BP Systolic 2025-04-01 16:14:00 110 mm[Hg] Step hen F Rolly BP Diastolic 2025-04-01 16:14:00 66 mm[Hg] Sameer phen F Rolly Weight Measured 2025-04-01 16:14:00 191.60 pounds Peter F Rolly Height Measured 2025-04-01 16:14:00 61.00 inches Peter F Rolly Body Temperature 2025-04-01 16:14:00 97.30 degrees Peter F Rolly Heart Rate 2025-04-01 16:14:00 83.00 /min Aparna en F Rolly Respiratory Rate 2025-04-01 16:14:00 16.00 /min Peter F Rolly BP Systolic 2024-06-25 14:08:00 113 mm[Hg] Step hen F Rolly BP Diastolic 2024-06-25 14:08:00 75 mm[Hg] Sameer phen F Rolly Weight Measured 2024-06-25 14:08:00 188.00 pounds Peter F Rolly Height Measured 2024-06-25 14:08:00 61.00 inches Peter F Rolly Body Temperature 2024-06-25 14:08:00 Peter F Rolly Heart Rate 2024-06-25 14:08:00 75.00 /min Aparna en F Rolly Respiratory Rate 2024-06-25 14:08:00 18.00 /min Peter F Rolly BP Systolic 2024-05-24 14:46:00 121 mm[Hg] Step hen F Rolly BP Diastolic 2024-05-24 14:46:00 79 mm[Hg] Sameer phen F Rolly Weight Measured 2024-05-24 14:46:00 188.60 pounds Peter F Rolly Height Measured 2024-05-24 14:46:00 61.00 inches Peter F Rolly Body Temperature 2024-05-24 14:46:00 98.30 degrees Peter F Rolly Heart Rate 2024-05-24 14:46:00 76.00 /min Aparna en F Rolly Respiratory Rate 2024-05-24 14:46:00 18.00 /min Peter F Rolly BP Systolic 2024-04-22 09:24:00 107 mm[Hg] Step hen F Rolly BP Diastolic 2024-04-22 09:24:00 72 mm[Hg] Sameer phen F Rolly Weight Measured 2024-04-22 09:24:00 207.60 pounds Peter F Rolly Height Measured 2024-04-22 09:24:00 61.00 inches Peter F Rolyl Body Temperature 2024-04-22 09:24:00 98.20 degrees Peter F Rolly Heart Rate 2024-04-22 09:24:00 78.00 /min Aparna en F Rolly Respiratory Rate 2024-04-22 09:24:00 19.00 /min Peter F Rolly BP Systolic 2024-04-12 10:26:00 111 mm[Hg] Step hen F Rolly BP Diastolic 2024-04-12 10:26:00 76 mm[Hg] Sameer phen F Rolly Weight Measured 2024-04-12 10:26:00 207.00 pounds Peter F Rolly Height Measured 2024-04-12 10:26:00 61.00 inches Peter F Rolly Body Temperature 2024-04-12 10:26:00 98.50 degrees Peter F Rolly Heart Rate 2024-04-12 10:26:00 94.00 /min Aparna en F Rolly Respiratory Rate 2024-04-12 10:26:00 16.00 /min Peter F Rolly BP Systolic 2024-04-11 10:26:00 108 mm[Hg] Step hen F Rolly BP Diastolic 2024-04-11 10:26:00 75 mm[Hg] Sameer phen F Rolly Weight Measured 2024-04-11 10:26:00 202.60 pounds Peter F Rolly Height Measured 2024-04-11 10:26:00 61.00 inches Peter F Rolly Body Temperature 2024-04-11 10:26:00 97.50 degrees Peter F Rolly Heart Rate 2024-04-11 10:26:00 75.00 /min Aparna en F Rolly Respiratory Rate 2024-04-11 10:26:00 16.00 /min Peter F Rolly BP Systolic 2024-03-29 10:57:00 101 mm[Hg] Step hen F Rolly BP Diastolic 2024-03-29 10:57:00 72 mm[Hg] Sameer phen F Rolly Weight Measured 2024-03-29 10:57:00 200.60 pounds Peter F Rolly Height Measured 2024-03-29 10:57:00 61.00 inches Peter F Rolly Body Temperature 2024-03-29 10:57:00 97.90 degrees Peter F Rolly Heart Rate 2024-03-29 10:57:00 81.00 /min Aparna en F Rolly Respiratory Rate 2024-03-29 10:57:00 17.00 /min Peter F Rolly BP Systolic 2024-03-25 11:33:00 107 mm[Hg] Step hen F Rolly BP Diastolic 2024-03-25 11:33:00 62 mm[Hg] Sameer phen F Rolly Weight Measured 2024-03-25 11:33:00 201.90 pounds Peter F Rolly Height Measured 2024-03-25 11:33:00 61.00 inches Peter F Rolly Body Temperature 2024-03-25 11:33:00 98.20 degrees Petre F Rolly Heart Rate 2024-03-25 11:33:00 99.00 /min Aparna en F Rolly Respiratory Rate 2024-03-25 11:33:00 17.00 /min Peter F Rolly BP Systolic 2024-03-15 11:04:00 135 mm[Hg] Step hen F Rolly BP Diastolic 2024-03-15 11:04:00 60 mm[Hg] Sameer phen F Rolly Weight Measured 2024-03-15 11:04:00 200.60 pounds Peter F Rolly Height Measured 2024-03-15 11:04:00 61.00 inches Peter F Rolly Body Temperature 2024-03-15 11:04:00 97.90 degrees Peter F Rolly Heart Rate 2024-03-15 11:04:00 92.00 /min Aparna en F Rolly Respiratory Rate 2024-03-15 11:04:00 18.00 /min Peter F Rolly BP Systolic 2024-03-01 10:56:00 111 mm[Hg] Step hen F Rolly BP Diastolic 2024-03-01 10:56:00 68 mm[Hg] Sameer phen F Rolly Weight Measured 2024-03-01 10:56:00 197.60 pounds Peter F Rolly Height Measured 2024-03-01 10:56:00 61.00 inches Peter F Rolly Body Temperature 2024-03-01 10:56:00 98.20 degrees Peter F Rolly Heart Rate 2024-03-01 10:56:00 82.00 /min Aparna en F Rolly Respiratory Rate 2024-03-01 10:56:00 18.00 /min Peter F Rolly BP Systolic 2024-02-21 15:33:00 123 mm[Hg] Step hen F Rolly BP Diastolic 2024-02-21 15:33:00 79 mm[Hg] Sameer phen F Rolly Weight Measured 2024-02-21 15:33:00 198.40 pounds Peter F Rolly Height Measured 2024-02-21 15:33:00 61.00 inches Peter F Rolly Body Temperature 2024-02-21 15:33:00 98.30 degrees Peter F Rolly Heart Rate 2024-02-21 15:33:00 99.00 /min Aparna en F Rolly Respiratory Rate 2024-02-21 15:33:00 18.00 /min Peter F Rolly BP Systolic 2024-02-09 10:29:00 112 mm[Hg] Step hen F Rolly BP Diastolic 2024-02-09 10:29:00 74 mm[Hg] Sameer phen F Rolly Weight Measured 2024-02-09 10:29:00 197.00 pounds Peter F Rolly Height Measured 2024-02-09 10:29:00 61.00 inches Peter F Rolly Body Temperature 2024-02-09 10:29:00 98.30 degrees Peter F Rolly Heart Rate 2024-02-09 10:29:00 96.00 /min Aparna en F Rolly Respiratory Rate 2024-02-09 10:29:00 17.00 /min Peter F Rolly BP Systolic 2024-01-12 10:22:00 116 mm[Hg] Step [...] Rolly Body Temperature 2023-12-27 13:41:00 98.10 degrees Peter F Rolly Heart Rate 2023-12-27 13:41:00 91.00 /min Aparna en F Rolly Respiratory Rate 2023-12-27 13:41:00 Peter F Rolly BP Systolic 2023-12-15 11:09:00 115 mm[Hg] Step hen F Rolly BP Diastolic 2023-12-15 11:09:00 79 mm[Hg] Sameer phen F Rolly Weight Measured 2023-12-15 11:09:00 183.80 pounds Epter F Rolly Height Measured 2023-12-15 11:09:00 61.00 [...] Rolly BP Diastolic 2023-09-20 09:25:00 60 mm[Hg] Saemer Lofton Weight Measured 2023-09-20 09:25:00 169.60 pounds Peter Lofton Height Measured 2023-09-20 09:25:00 61.00 inches Peter Lofton Body Temperature 2023-09-20 09:25:00 98.30 degrees Peter Lofton Heart Rate 2023-09-20 09:25:00 64.00 /min Aparna Lofton Respiratory Rate 2023-09-20 09:25:00 Peter Lofton Procedures Procedure Date / Time Performed Performing Clinician Source [id number] 2024-05-05 00:00:00 DAFDE [facility] POCT TEST 2022-09-27 15:38:00 Nayla Ventura [facility] POCT TEST 2022-09-27 00:00:00 Nayla Ventura [facility] GLUCOSE 1 HOUR POST PRANDIAL 2022-09-22 15:21:00 Joanie Villalobos [facility] TOTAL BETA HCG ASSAY 2022-09-21 21:30:00 Sedrick Villalobos [facility] CBC WITH DIFF 2022-09-21 21:30:00 Joanie Villalobos [facility] HEPATITIS B SURFACE ANTIGEN 2022-09-21 21:30:00 Joanie Villalobos [facility] HCV ANTIBODY 2022-09-21 21:30:00 Joanie Villalobos [facility] HB ABO GROUPING 2022-09-21 21:30:00 Joanie Villalobos [facility] HIV 1/2 AG-AB WITH REFLEX 2022-09-21 21:30:00 Joanie Villalobos [facility] PAP SMEAR-LIQUID BASED-CP 2022-09-21 21:30:00 Joanie Villalobos [facility] POCT TEST 2022-09-21 20:29:00 Jorge Villalobos [facility] POCT URINALYSIS W/O SPECIFIC GRAVITY 2022-09-21 20:29:00 Joanie Villalobos [facility] ADC CLC OR LCC ONLY - WET PREP 2022-09-20 22:24:00 Leeanna Naranjo [facility] FIRST TRIMESTER LESS THAN 14 WEEKS WITH TRANSVAGINAL 2022-09-20 20:12:04 Lee Ann Hussein [facility] URINALYSIS 2022-09-20 15:15:00 Lee Ann Hussein [facility] LIPASE 2022-09-20 15:11:00 Lee Ann Hussein [facility] TEST, SERUM 2022-09-20 15:11:00 Itz Hussein [facility] COMP. METABOLIC PANEL (35900) 2022-09-20 15:11:00 Lee Ann Hussein [facility] TOTAL BETA HCG ASSAY 2022-09-20 15:11:00 Lexie Hussein [facility] CBC WITH DIFF 2022-09-20 15:11:00 Lee Ann Hussein [facility] PROTHROMBIN TIME / INR 2022-09-20 15:11:00 Tristen Hussein [facility] ACTIVATED PARTIAL THRMPLAS FLORA 2022-09-20 15:11:00 Lee Ann Hussein [facility] CONSENT/REFUSAL FOR DIAGNOSIS AND TREATMENT 2022-09-20 14:05:15 Doctor Unassigned, [place] [facility] XR CHEST 1 VW 2021-11-09 23:31:00 Misty Hooker [facility] CBC WITH DIFF 2021-11-09 23:31:00 Misty Hooker [facility] POCT TEST 2021-11-09 23:21:00 Talya Hooker [facility] URINALYSIS 2021-11-09 [facility]:19[facility] 2021-11-09 23:19:00 Talya Hooker [facility] COVID-19 (ID NOW RAPID TESTING) 2021-11-09 23:19:00 Misty Hooker [facility] LIPASE 2021-11-09 23:13:00 Misty Hooker [facility] COMP. METABOLIC PANEL ([id number]) 2021-11-09 23:13:00 Misty Hooker [facility] NOTICE OF PRIVACY PRACTICES 2021-11-09 22:13:35 Doctor Unassigned, [place] [facility] CONSENT/REFUSAL FOR DIAGNOSIS AND TREATMENT 2021-11-09 22:13:21 Doctor Unassigned, [place] [facility] XR CHEST 1 VW 2021-08-06 09:20:00 Otilia [facility] RAPID INFLUENZA A/B 2021-08-06 08:25:00 Otilia Britton [facility] COVID-19 (ID NOW RAPID TESTING) 2021-08-06 08:25:00 Otilia Britton [facility] BASIC METABOLIC PANEL (NA, K, CL, CO2, GLUCOSE, BUN, CREATININE, CA) 2021-01-29 10:37:00 Chinedu Fragoso [facility] CBC WITH DIFF 2021-01-29 10:37:00 Chinedu Fragoso [facility] VANCOMYCIN TROUGH 2021-01-29 03:57:00 Leeroy Mae [facility] BASIC METABOLIC PANEL (NA, K, CL, CO2, GLUCOSE, BUN, CREATININE, CA) 2021-01-28 10:27:00 Madina [facility] CBC WITH DIFF 2021-01-28 10:27:00 [facility] BASIC METABOLIC PANEL (NA, K, CL, CO2, GLUCOSE, BUN, CREATININE, CA) 2021-01-28 10:27:00 Connie [facility] CBC WITH DIFF 2021-01-28 10:27:00 [facility] INTUBATION 2021-01-27 21:23:47 Gian Negrete [facility] ASPIRATE OR ABSCESS CULTURE(AEROBIC/ANAEROBIC) 2021-01-27 21:22:56 Marva Holcomb [facility] ASPIRATE OR ABSCESS CULTURE(AEROBIC/ANAEROBIC) 2021-01-27 21:22:56 Marva Holcomb [facility] INCISION AND DRAINAGE BUTTOCK 2021-01-27 20:50:00 Marva Holcomb [facility] INCISION AND DRAINAGE BUTTOCK 2021-01-27 20:50:00 Marva Holcomb [facility] XR CHEST 1 VW 2021-01-27 05:56:15 Ros[facility] XR CHEST 1 VW 2021-01-27 05:56[facility]15 [facility] LACTIC ACID WHOLE BLOOD 2021-01-27 05:47:00 Jon Britton [facility] LACTIC ACID WHOLE BLOOD 2021-01-27 05:47:00 Jon Britton [facility] COVID-19 (ID NOW RAPID TESTING) 2021-01-27 04:33:00 Otilia Britton [facility] COVID-19 (ID NOW RAPID TESTING) 2021-01-27 04:33:00 Otilia Britton [facility] CT PELVIS W CONTRAST 2021-01-27 02:56:37 Otilia Britton [facility] CT PELVIS W CONTRAST 2021-01-27 02:56:37 Oitlia Britton [facility] POCT TEST 2021-01-27 02:30:00 Otilia Britton [facility] POCT TEST 2021-01-27 02:30:00 Otilia Britton [facility] BLOOD CULTURE SCREEN 2021-01-27 02:20:00 Otilia Britton [facility] BLOOD CULTURE SCREEN 2021-01-27 02:20:00 Otilia Britton [facility] HEPATIC FUNCTION PANEL ([id number]) (ALB,T.PRO,BILI T,BU/BC,ALT,AST,ALK PHOS) 2021-01-27 02:09:00 Madina [facility] BASIC METABOLIC PANEL (NA, K, CL, CO2, GLUCOSE, BUN, CREATININE, CA) 2021-01-27 02:09:00 Otilia Britton [facility] CBC WITH DIFF 2021-01-27 02:09:00 [facility]tilia Britt[facility] LACTIC ACID WHOLE BLOOD 2021-01-27 02:09:00 Jon Britton [facility] HEPATIC FUNCTION PANEL ([id number]) (ALB,T.PRO,BILI T,BU/BC,ALT,AST,ALK PHOS) 2021-01-27 02:09:00 Rosendo Vance [facility] BASIC METABOLIC PANEL (NA, K, CL, CO2, GLUCOSE, BUN, CREATININE, CA) 2021-01-27 02:09:00 Otilia Britton [facility] CBC WITH DIFF 2021-01-27 02:09:00 Otilia Britton [facility] LACTIC ACID WHOLE BLOOD 2021-01-27 02:09:00 Jon Britton [facility] BLOOD CULTURE SCREEN 2021-01-27 02:08:00 Otilia Britton [facility] BLOOD CULTURE SCREEN 2021-01-27 02:08:00 Otilia Britton [facility] CONSENT/REFUSAL FOR DIAGNOSIS AND TREATMENT 2021-01-27 01:14:15 Doctor Unassigned, Knapp [facility] CONSENT/REFUSAL FOR DIAGNOSIS AND TREATMENT 2021-01-27 01:14:15 Doctor Unassigned, Knapp [facility] NOTICE OF PRIVACY PRACTICES 2021-01-27 01:13:39 Doctor Unassigned, Knapp [facility] NOTICE OF PRIVACY PRACTICES 2021-01-27 01:13:39 Doctor Unassigned, Knapp [facility] POCT TEST 2019-04-22 23:07:00 Jorge Villalobos [facility] NO SHOW OR MISSED APPOINTMENT POLICY ACKNOWLEDGEMENT 2019-04-22 18:55:00 Doctor Unassigned, Knapp [facility] Encounters Start Date/Time End Date/Time Encounter Type Admission Type Attending Clinicians Care Facility Care Department Encounter ID Source 2024-05-06 18:00:00 Inpatient MARCEL BlandonJose zuletaley [facility] LD [id number] [facility] 2021-06-27 22:32:36 Emergency [facility] [id number] [facility] 2025-04-17 09:04:26 2025-04-17 09:04:26 Outpatient SFA SFA [id number] Peter Lofton 2025-04-17 00:00:00 2025-04-17 00:00:00 Outpatient Visit SFA [id number] Peter Lofton 2025-04-14 08:25:21 2025-04-14 08:25:21 Outpatient S[facility] [id number] Peter Lofton 2025-04-14 00:00:00 2025-04-14 00:00:00 Outpatient Visit SFA [id number] Peter Lofton 2025-04-01 16:07:13 2025-04-01 16:07:13 Outpatient SFA [facility] [id number] Peter Lofton 2025-04-01 00:00:00 2025-04-01 00:00:00 Outpatient Visit SFA [id number] Peter Lofton 2024-11-26 08:37:21 2024-11-26 08:37:21 Outpatient SFA [facility] [id number] Peter Lofton 2018-06-12 00:00:00 2024-10-12 03:14:17 Orders Only Salcedo, Prisciliana Salcedo, Prisciliana [facility] [employer]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 2024-06-25 14:21:45 2024-06-25 14:21:45 Outpatient SFA SFA [id number] Peter Lofton 2024-05-24 14:27:43 2024-05-24 14:27:43 Outpatient SFA SFA [id number] Peter Lofton 2024-05-05 03:01:00 2024-05-07 20:30:00 Inpatient EM Damaso Zee [facility] OBPP [id number] [facility] 2024-04-22 12:26:00 2024-04-22 13:20:00 Emergency EM Meghan Streeter [facility] CAREY [id number] [facility] 2024-04-22 09:17:09 2024-04-22 09:17:09 Outpatient SFA SFA [id number] Peter Lotfon 2024-04-22 00:00:00 2024-04-22 00:00:00 Outpatient Visit SFA [id number] Peter Lofton 2024-04-12 10:26:15 2024-04-12 10:26:15 Outpatient SFA SFA [id number] Peter Lofton 2024-04-12 00:00:00 2024-04-12 00:00:00 Outpatient Visit SFA [id number] Peter Lofton 2024-04-11 10:21:46 2024-04-11 10:21:46 Outpatient SFA SFA [id number] Peter Lofton 2024-04-11 00:00:00 2024-04-11 00:00:00 Outpatient Visit SFA [id number] Peter Lotfon 2024-03-29 10:57:00 2024-03-29 10:57:00 Outpatient SFA SFA [id number] Peter Lofton 2024-03-29 00:00:00 2024-03-29 00:00:00 Outpatient Visit SFA [id number] Peter Lofton 2024-03-25 11:11:56 2024-03-25 11:11:56 Outpatient SFA SFA [id number] Peter Lofton 2024-03-25 00:00:00 2024-03-25 00:00:00 Outpatient Visit SFA [id number] Peter Lofton 2024-03-15 10:32:33 2024-03-15 10:32:33 Outpatient SFA SFA [id number] Peter Lofton 2024-03-15 00:00:00 2024-03-15 00:00:00 Outpatient Visit SFA [id number] Peter Lofton 2024-03-01 00:00:00 2024-03-01 00:00:00 Outpatient Visit SFA [id number] Peter Lofton 2024-02-21 15:18:04 2024-02-21 15:18:04 Outpatient SFA SFA [id number] Peter Lofton 2024-02-21 00:00:00 2024-02-21 00:00:00 Outpatient Visit SFA [id number] Peter Lofton 2024-02-09 10:25:08 2024-02-09 10:25:08 Outpatient SFA SFA [id number] Peter Lofton 2024-02-09 00:00:00 2024-02-09 00:00:00 Outpatient Visit SFA [id number] Peter Lofton 2024-01-12 10:14:59 2024-01-12 10:14:59 Outpatient SFA SFA [id number] Peter Lofton 2024-01-12 00:00:00 2024-01-12 00:00:00 Outpatient Visit SFA [id number] Peter Lofton 2023-12-27 13:31:36 2023-12-27 13:31:36 Outpatient SFA SFA [id number] Peter Lofton 2023-12-20 08:57:27 2023-12-20 08:57:27 Outpatient SFA SFA [id number] Peter Lofton 2023-12-15 11:09:28 2023-12-15 11:09:28 Outpatient SFA SFA [id number] Peter Lofton 2023-12-15 00:00:00 2023-12-15 00:00:00 Outpatient Visit SFA [id number] Peter Lofton 2023-12-12 17:11:25 2023-12-12 17:11:25 Outpatient SFA SFA [id number] Peter Lofton 2023-12-12 00:00:00 2023-12-12 00:00:00 Outpatient Visit SFA [id number] Peter Lofton 2023-11-06 08:40:08 2023-11-06 08:40:08 Outpatient SFA SFA [id number] Peter Lofton 2023-10-31 08:41:42 2023-10-31 08:41:42 Outpatient SFA SFA [id number] Peter Lofton 2023-10-27 16:36:05 2023-10-27 16:36:05 Outpatient SFA SFA [id number] Peter Lofton 2023-10-19 08:37:30 2023-10-19 08:37:30 Outpatient SFA SFA [id number] Peter Lofton 2023-10-07 09:40:05 2023-10-07 09:40:05 Outpatient SFA SFA [id number] Peter Lofton 2023-10-05 11:37:17 2023-10-05 11:37:17 Outpatient S[facility] [id number] Peter Lofton 2023-09-27 14:30:58 2023-09-27 14:30:58 Outpatient SFA [facility] [id number] Peter Lofton 2023-09-20 09:14:08 2023-09-20 09:14:08 Outpatient SFA [facility] [id number] Peter Lofton 2023-09-18 14:23:01 2023-09-18 14:23:01 Outpatient SFA [facility] [id number] Peter Lofton 2022-10-20 09:00:00 2022-10-20 09:00:00 Outpatient R JOANIE VILLALOBOS [facility] [id number] [facility] 2022-10-11 10:45:00 2022-10-11 15:58:23 Outpatient HANH ROBERTS [facility] [id number] [facility] 2022-10-11 10:45:00 2022-10-11 15:58:23 Telemedici ne Visit Trimester, [facility] Res-1st Hanh M[address] [facility] 1..840.114 350.1.13.10 4.2.7.2.[id number] [facility] 2022-09-27 08:45:00 2022-09-27 09:49:09 Outpatient LAVON OSORIO [facility] [id number] [facility] 2022-09-27 08:45:00 2022-09-27 09:49:09 Routine Visit Trimester, [facility] Res-1st Lavon Rob[address] [facility] 1..840.114 350.1.13.10 4.2.7.2.[id number] [facility] 2022-09-26 08:15:00 2022-09-26 08:40:50 Outpatient R JOANIE VILLALOBOS [facility] [id number] [facility] 2022-09-26 08:15:00 2022-09-26 08:40:50 Pie Cutter Visit Lab, Joanie Ragland Janae [facility] [employer] PRODUCTION OPERATOR [facility] 1.2.840.114 350.1.13.10 4.2.7.2.[id number] [facility] 2022-09-23 00:00:00 2022-09-23 00:00:00 Telephone JulioJoanie alvarado Janae [facility] [employer]RI[employer] PRODUCTION OPERATOR [facility] 1.2840.114 350.1.13.10 4.2.7.2.[id number] [facility] 2022-09-22 08:30:00 2022-09-22 08:30:00 Pie Cutter Visit Lab, Joanie Ragland Janae [facility] INDUSTRIAL [employer] PRODUCTION OPERATOR [facility] 1.840.114 350.1.13.10 4.2.7.2.[id number] [facility] 2022-09-22 08:30:00 2022-09-22 08:29:14 Outpatient R JOANIE VILLALOBOS [facility] [id number] [facility] 2022-09-21 14:15:00 2022-09-21 15:35:56 Outpatient R JOANIE VILLALOBOS [facility] [id number] [facility] 2022-09-21 14:15:00 2022-09-21 15:35:56 Initial Visit Joanie Villalobos [facility] INDUSTRI[employer] PRODUCTION OPERATOR [facility] .840.114 350.1.13.10 4.2.7.2.[id number] [facility] 2022-09-20 08:20:00 2022-09-20 16:48:00 Emergency X LEE ANN HUSSEIN [facility] [id number] [facility] 2022-09-20 08:20:00 2022-09-20 16:48:00 Emergency Lee Ann Hussein [facility] 1.2.840.114 350.1.13.10 4.2.7.2.[id number] [facility] 2021-11-09 17:29:00 2021-11-09 20:21:00 Emergency X MISTY HOOKER [facility] [id number] [facility] 2021-11-09 17:29:00 2021-11-09 20:21:00 Emergency Misty Hooker [facility] 1.2.840.114 350.1.13.10 4.2.7.2.[id number] [facility] 2021-10-23 09:30:00 2021-10-23 09:30:00 Outpatient R WYATT HUGGINS [facility] [id number] [facility] 2021-08-06 00:30:00 2021-08-06 04:47:00 Emergency X OTILIA BRITTON [facility] [id number] [facility] 2021-08-06 00:30:00 2021-08-06 04:47:00 Emergency Otilia Britton S [facility] 1.2.840.114 350.1.13.10 4.2.7.2.[id number] [facility] 2021-02-16 16:00:00 2021-02-16 17:01:15 Outpatient R MARVA HOLCOMB [facility] [id number] [facility] 2021-02-16 15:56:33 2021-02-16 17:01:15 Office Visit Marva Holcomb [facility] 1.2.840.114 350.1.13.10 4.2.7.2.[id number] [facility] 2021-02-03 00:00:00 2021-02-03 00:00:00 Patient Outreach Elena Gaines 1.2.840.114 350.1.13.10 4.2.7.2.[id number] [facility] 2021-02-01 00:00:00 2021-02-01 00:00:00 Transition of Care Yaima Julio 1.2.840.114 350.1.13.10 4.2.7.2.[id number] [facility] 2021-01-26 20:38:00 2021-01-29 12:24:00 Hospital Encounter Otilia Britton [facility] 1.2.840.114 350.1.13.10 4.2.7.2.[id number] [facility] 2021-01-27 15:57:00 2021-01-27 16:36:00 Anesthesia Event Mauro Pruitt [facility] [place] 1.2.840.114 350.1.13.10 4.2.7.2.[id number] [facility] 2021-01-27 15:30:00 2021-01-27 16:29:00 Surgery Marva Holcomb [facility] 1.2.840.114 350.1.13.10 4.2.7.2.[id number] 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 2019-04-22 00:00:00 2019-04-22 00:00:00 Orders Only Doctor Unassigned, Knapp [facility] 1.2.840.114 350.1.13.10 4.2.7.2.[id number] [facility] Results Test Description Test Time Test Comments Results Result Co mments Source RAPID PLASMA [id number] 09:52:00* Test Item Value Reference Range Interpretation Comme nts RAPID PLASMA REAGIN (test co de = RPR) NONREACTIVE NONREACTIVE AG HEPATITIS B [id number] 09:52:00* Test Item Value Reference Range Interpretation Comme nts AG HEPATITIS B SURFACE (test code = HBSAG) NON REACTIVE INDEX NonReactive AB HIV 1 09:52:00* Test Item Value Reference Range Interpretation Comme nts AB HIV 1 2 (test code = JOT46AW) Nonreactive Nonreactive CBC W/AUTO [id number] 04:36:00* Test Item Value Reference Range Interpretation Comme nts WHITE BLOOD CELL (test code = WBC) 11.0 x10 3/uL 4.5-11.0 N RED BLOOD CELL (test code = RBC) 4.17 x10 6/uL 3.54-5.02 N HEMOGLOBIN (test code = HGB) 10.6 g/dL 11.0-15.0 L HEMATOCRIT (test code = HCT) 34.0 % 33.0-45.0 N MEAN CELL VOLUME (test code = MCV) 81.5 fL 81.0-99.0 N MEAN CELL HGB (test code = MCH) 25.4 pg 27.0-33.0 L MEAN CELL HGB CONCETRATION (test code = MCHC) 31.2 g/dL 33.0-37.0 L RED CELL DISTRIBUTION WIDTH CV (test code = RDW) 17.1 % 11.5-14.5 H RED CELL DISTRIBUTION WIDTH SD (test code = RDW-SD) 49.3 fL 37.0-54.0 N PLATELET COUNT (test code = PLT) 215 x10 3/uL 150-400 N MEAN PLATELET VOLUME (test c ode = MPV) 12.1 fL 7.0-9.0 H NEUTROPHIL % (test code = NT%) 65.9 % 56.0-77.0 N IMMATURE GRANULOCYTE % (test code = IG%) 0.5 % 0.0-2.0 N LYMPHOCYTE % (test code = LY%) 26.7 % 14.0-32.0 N MONOCYTE % (test code = MO%) 5.8 % 4.8-9.0 N EOSINOPHIL % (test code = EO%) 0.7 % 0.3-3.7 N BASOPHIL % (test code = BA%) 0.4 % 0.0-2.0 N NUCLEATED RBC % (test code = NRBC%) 0.0 % 0-0 N NEUTROPHIL # (test code = NT#) 7.22 x10 3/uL 2.0-7.6 N IMMATURE GRANULOCYTE # (test code = IG#) 0.06 x10 3/uL 0.00-0.03 H LYMPHOCYTE # (test code = LY#) 2.93 x10 3/uL 1.0-3.8 N MONOCYTE # (test code = MO#) 0.64 x10 3/uL 0.1-0.8 N EOSINOPHIL # (test code = EO#) 0.08 x10 3/uL 0.0-0.2 N BASOPHIL # (test code = BA#) 0.04 x10 3/uL 0.0-0.2 N NUCLEATED RBC # (test code = NRBC#) 0.00 x10 3/uL 0.0-0.1 N MANUAL DIFF REQUIRED (test c ode = MDIFF) NO CULTURE, URINE, [id number] 00:00:00* Test Item Value Reference Range Interpretation Comme nts CULTURE, URINE, ROUTINE (raghavendra t code = 630-4) SEE NOTE Peter F AustinCULTURE, URINE, [id number] 00:00:00* Test Item Value Reference Range Interpretation Comme nts CULTURE, URINE, ROUTINE (raghavendra t code = 630-4) SEE NOTE Peter Nick AustinCULTURE, URINE, [id number] 00:00:00* Test Item Value Reference Range Interpretation Comme nts CULTURE, URINE, ROUTINE (raghavendra t code = 630-4) SEE NOTE Peter Nick AustinCULTURE, URINE, [id number] 00:00:00* Test Item Value Reference Range Interpretation Comme nts CULTURE, URINE, ROUTINE (raghavendra t code = 630-4) SEE NOTE Peter F AustinCULTURE, URINE, [id number] 00:00:00* Test Item Value Reference Range Interpretation Comme nts CULTURE, URINE, ROUTINE (raghavendra t code = 630-4) SEE NOTE Peter Romero AustinCULTURE, URINE, [id number] 00:00:00* Test Item Value Reference Range Interpretation Comme nts CULTURE, URINE, ROUTINE (raghavendra t code = 630-4) SEE NOTE Peter Romero AustinCULTURE, URINE, [id number] 00:00:00* Test Item Value Reference Range Interpretation Comme nts CULTURE, URINE, ROUTINE (raghavendra t code = 630-4) SEE NOTE Peter Romero AustinCULTURE, URINE, [id number] 00:00:00* Test Item Value Reference Range Interpretation Comme nts CULTURE, URINE, ROUTINE (raghavendra t code = 630-4) SEE NOTE Peter Romero AustinCULTURE, URINE, [id number] 00:00:00* Test Item Value Reference Range Interpretation Comme nts CULTURE, URINE, ROUTINE (raghavendra t code = 630-4) SEE NOTE Peter Romero AustinCT/NG, NAAT, [id number] 00:00:00* Test Item Value Reference Range Interpretation Comme nts CHLAMYDIA, NAAT, URINE (test code = 15737) NEGATIVE GONORRHEA, NAAT, URINE (test code = 07272) NEGATIVE Peter Romero AustinTRICHOMONAS, URINE, [id number] 00:00:00* Test Item Value Reference Range Interpretation Comme nts TRICHOMONAS, NAAT, URINE (te st code = 66745) NEGATIVE Peter Romero AustinCT/NG, NAAT, [id number] 00:00:00* Test Item Value Reference Range Interpretation Comme nts CHLAMYDIA, NAAT, URINE (test code = 50866) NEGATIVE GONORRHEA, NAAT, URINE (test code = 04461) NEGATIVE Peter Romero AustinTRICHOMONAS, URINE, [id number] 00:00:00* Test Item Value Reference Range Interpretation Comme nts TRICHOMONAS, NAAT, URINE (te st code = 11815) NEGATIVE Peter Romero AustinCT/NG, NAAT, [id number] 00:00:00* Test Item Value Reference Range Interpretation Comme nts CHLAMYDIA, NAAT, URINE (test code = 94512) NEGATIVE GONORRHEA, NAAT, URINE (test code = 94093) NEGATIVE Peter F AustinTRICHOMONAS, URINE, [id number] 00:00:00* Test Item Value Reference Range Interpretation Comme nts TRICHOMONAS, NAAT, URINE (te st code = 61877) NEGATIVE Peter F AustinCT/NG, NAAT, [id number] 00:00:00* Test Item Value Reference Range Interpretation Comme nts CHLAMYDIA, NAAT, URINE (test code = 63315) NEGATIVE GONORRHEA, NAAT, URINE (test code = 44664) NEGATIVE Peter F AustinTRICHOMONAS, URINE, [id number] 00:00:00* Test Item Value Reference Range Interpretation Comme nts TRICHOMONAS, NAAT, URINE (te st code = 64222) NEGATIVE Peter F AustinCT/NG, NAAT, [id number] 00:00:00* Test Item Value Reference Range Interpretation Comme nts CHLAMYDIA, NAAT, URINE (test code = 58664) NEGATIVE GONORRHEA, NAAT, URINE (test code = 22745) NEGATIVE Peter F AustinTRICHOMONAS, URINE, [id number] 00:00:00* Test Item Value Reference Range Interpretation Comme nts TRICHOMONAS, NAAT, URINE (te st code = 78027) NEGATIVE Peter F AustinCT/NG, NAAT, [id number] 00:00:00* Test Item Value Reference Range Interpretation Comme nts CHLAMYDIA, NAAT, URINE (test code = 44128) NEGATIVE GONORRHEA, NAAT, URINE (test code = 25230) NEGATIVE Peter F AustinTRICHOMONAS, URINE, [id number] 00:00:00* Test Item Value Reference Range Interpretation Comme nts TRICHOMONAS, NAAT, URINE (te st code = 65869) NEGATIVE Peter F AustinCT/NG, NAAT, [id number] 00:00:00* Test Item Value Reference Range Interpretation Comme nts CHLAMYDIA, NAAT, URINE (test code = 39489) NEGATIVE GONORRHEA, NAAT, URINE (test code = 49323) NEGATIVE Peter F AustinTRICHOMONAS, URINE, [id number] 00:00:00* Test Item Value Reference Range Interpretation Comme nts TRICHOMONAS, NAAT, URINE (te st code = 29905) NEGATIVE Peter F AustinCT/NG, NAAT, [id number] 00:00:00* Test Item Value Reference Range Interpretation Comme nts CHLAMYDIA, NAAT, URINE (test code = 27828) NEGATIVE GONORRHEA, NAAT, URINE (test code = 44941) NEGATIVE Peter Nick AustinTRICHOMONAS, URINE, [id number] 00:00:00* Test Item Value Reference Range Interpretation Comme nts TRICHOMONAS, NAAT, URINE (te st code = 71293) NEGATIVE Peter F AustinCT/NG, NAAT, [id number] 00:00:00* Test Item Value Reference Range Interpretation Comme nts CHLAMYDIA, NAAT, URINE (test code = 26122) NEGATIVE GONORRHEA, NAAT, URINE (test code = 54839) NEGATIVE Peter F AustinTRICHOMONAS, URINE, [id number] 00:00:00* Test Item Value Reference Range Interpretation Comme nts TRICHOMONAS, NAAT, URINE (te st code = 33445) NEGATIVE Peter LoftonCULTURE, [id number] 10:05:29SPECIMEN NUMBER: [id number] CULTURE, URINE SPECIMEN NUMBER: [id number] SOURCE: URINE REPORT STATUS: FINAL FINAL REPORT: 03/31/2024 <10,000 CFU/ML UROGENITAL JUNAID PRESENT NO COMMON PATHOGENS UNLESS OTHERWISE INDICATED, ALL TESTING PERFORMED AT [facility] [address] [place] [address] CREDIT INTERVIEWER: GOPAL BACON M.D. CLIA NUMBER [id number] [facility] [place] [id number] CULTURE, [id number] 00:00:00* Test Item Value Reference Range Interpretation Comme nts CULTURE, URINE (test code = 72803) SPECIMEN NUMBER: [id number] Peter LoftonCULTURE, [id number] 00:00:00* Test Item Value Reference Range Interpretation Comme nts CULTURE, URINE (test code = 42960) SPECIMEN NUMBER: [id number] Peter LoftonCULTURE, [id number] 00:00:00* Test Item Value Reference Range Interpretation Comme nts CULTURE, URINE (test code = 64556) SPECIMEN NUMBER: [id number] Peter LoftonCULTURE, [id number] 00:00:00* Test Item Value Reference Range Interpretation Comme nts CULTURE, URINE (test code = 95644) SPECIMEN NUMBER: [id number] Peter Ugarte, [id number] 00:00:00* Test Item Value Reference Range Interpretation Comme nts CULTURE, URINE (test code = 21215) SPECIMEN NUMBER: [id number] Peter Ugarte, [id number] 00:00:00* Test Item Value Reference Range Interpretation Comme nts CULTURE, URINE (test code = 32521) SPECIMEN NUMBER: [id number] Peter Ugarte, [id number] 00:00:00* Test Item Value Reference Range Interpretation Comme nts CULTURE, URINE (test code = 46660) SPECIMEN NUMBER: [id number] Peter Ugarte, [id number] 00:00:00* Test Item Value Reference Range Interpretation Comme nts CULTURE, URINE (test code = 85519) SPECIMEN NUMBER: [id number] Peter Ugarte, [id number] 00:00:00* Test Item Value Reference Range Interpretation Comme nts CULTURE, URINE (test code = 22397) SPECIMEN NUMBER: [id number] Peter HurdLTBRYAN, URINE [ADDED]2024-03-27 00:00:00* Test Item Value Reference Range Interpretation Comme nts CULTURE, URINE (test code = 04321) SPECIMEN NUMBER: [id number] Peter HurdLTBRYAN, URINE [ADDED]2024-03-27 00:00:00* Test Item Value Reference Range Interpretation Comme nts CULTURE, URINE (test code = 03071) SPECIMEN NUMBER: [id number] Peter LoftonCULTURE, URINE [ADDED]2024-03-27 00:00:00* Test Item Value Reference Range Interpretation Comme nts CULTURE, URINE (test code = 05282) SPECIMEN NUMBER: [id number] Peter LoftonCULTURE, URINE [ADDED]2024-03-27 00:00:00* Test Item Value Reference Range Interpretation Comme nts CULTURE, URINE (test code = 29287) SPECIMEN NUMBER: [id number] Peter LoftonCULTURE, URINE [ADDED]2024-03-27 00:00:00* Test Item Value Reference Range Interpretation Comme nts CULTURE, URINE (test code = 88593) SPECIMEN NUMBER: [id number] Peter LoftonCULTURE, URINE [ADDED]2024-03-27 00:00:00* Test Item Value Reference Range Interpretation Comme nts CULTURE, URINE (test code = 60657) SPECIMEN NUMBER: [id number] Peter Romero AustinCULTURE, URINE [ADDED]2024-03-27 00:00:00* Test Item Value Reference Range Interpretation Comme nts CULTURE, URINE (test code = 86751) SPECIMEN NUMBER: [id number] Peter Romero AustinCULTURE, URINE [ADDED]2024-03-27 00:00:00* Test Item Value Reference Range Interpretation Comme nts CULTURE, URINE (test code = 65216) SPECIMEN NUMBER: [id number] Peter LoftonCULTURE, URINE [ADDED]2024-03-27 00:00:00* Test Item Value Reference Range Interpretation Comme nts CULTURE, URINE (test code = 49639) SPECIMEN NUMBER: [id number] Peter Romero AustinVAGINAL PATHOGENS DNA [id number] 00:00:00* Test Item Value Reference Range Interpretation Comme nts GEORGETTE SPECIES (test code = ) POSITIVE G. VAGINALIS (test code = 66432) NEGATIVE T. VAGINALIS (test code = 01528) NEGATIVE Peter Romero AustinVAGINAL PATHOGENS DNA [id number] 00:00:00* Test Item Value Reference Range Interpretation Comme nts GEORGETTE SPECIES (test code = 09716) POSITIVE G. VAGINALIS (test code = 35975) NEGATIVE T. VAGINALIS (test code = 61464) NEGATIVE Peter Romero AustinVAGINAL PATHOGENS DNA [id number] 00:00:00* Test Item Value Reference Range Interpretation Comme nts GEORGETTE SPECIES (test code = 58650) POSITIVE G. VAGINALIS (test code = 97661) NEGATIVE T. VAGINALIS (test code = 56600) NEGATIVE Peter F AustinVAGINAL PATHOGENS DNA [id number] 00:00:00* Test Item Value Reference Range Interpretation Comme nts GEORGETTE SPECIES (test code = 26583) POSITIVE G. VAGINALIS (test code = 80115) NEGATIVE T. VAGINALIS (test code = 73627) NEGATIVE Peter Romero AustinVAGINAL PATHOGENS DNA [id number] 00:00:00* Test Item Value Reference Range Interpretation Comme nts GEORGETTE SPECIES (test code = 66151) POSITIVE G. VAGINALIS (test code = 46136) NEGATIVE T. VAGINALIS (test code = 90083) NEGATIVE Peter Romero AustinVAGINAL PATHOGENS DNA [id number] 00:00:00* Test Item Value Reference Range Interpretation Comme nts GEORGETTE SPECIES (test code = 00431) POSITIVE G. VAGINALIS (test code = 37499) NEGATIVE T. VAGINALIS (test code = 59421) NEGATIVE Peter Romero AustinVAGINAL PATHOGENS DNA [id number] 00:00:00* Test Item Value Reference Range Interpretation Comme nts GEORGETTE SPECIES (test code = 66882) POSITIVE G. VAGINALIS (test code = 65951) NEGATIVE T. VAGINALIS (test code = 73005) NEGATIVE Peter Romero AustinVAGINAL PATHOGENS DNA [id number] 00:00:00* Test Item Value Reference Range Interpretation Comme nts GEORGETTE SPECIES (test code = 45565) POSITIVE G. VAGINALIS (test code = 17656) NEGATIVE T. VAGINALIS (test code = 37682) NEGATIVE Peter Romero AustinVAGINAL PATHOGENS DNA [id number] 00:00:00* Test Item Value Reference Range Interpretation Comme nts GEORGETTE SPECIES (test code = ) POSITIVE G. VAGINALIS (test code = 43279) NEGATIVE T. VAGINALIS (test code = 42693) NEGATIVE Peter LoftonCULTURE, [id number] 00:00:00* Test Item Value Reference Range Interpretation Comme nts CULTURE, URINE (test code = 55819) SPECIMEN NUMBER: [id number] Peter LoftonCULTURE, [id number] 00:00:00* Test Item Value Reference Range Interpretation Comme nts CULTURE, URINE (test code = 21322) SPECIMEN NUMBER: [id number] Peter Romero AustinCULTURE, [id number] 00:00:00* Test Item Value Reference Range Interpretation Comme nts CULTURE, URINE (test code = 57080) SPECIMEN NUMBER: [id number] Peter Romero AustinCULTURE, [id number] 00:00:00* Test Item Value Reference Range Interpretation Comme nts CULTURE, URINE (test code = 36170) SPECIMEN NUMBER: [id number] Peter HurdLTBRYAN, [id number] 00:00:00* Test Item Value Reference Range Interpretation Comme nts CULTURE, URINE (test code = 24962) SPECIMEN NUMBER: [id number] Peter Ugarte, [id number] 00:00:00* Test Item Value Reference Range Interpretation Comme nts CULTURE, URINE (test code = 53540) SPECIMEN NUMBER: [id number] Peter HurdLTBRYAN, [id number] 00:00:00* Test Item Value Reference Range Interpretation Comme nts CULTURE, URINE (test code = 14420) SPECIMEN NUMBER: [id number] Peter HurdLTBRYAN, [id number] 00:00:00* Test Item Value Reference Range Interpretation Comme nts CULTURE, URINE (test code = 52765) SPECIMEN NUMBER: [id number] Peter Ugarte, [id number] 00:00:00* Test Item Value Reference Range Interpretation Comme nts CULTURE, URINE (test code = 75122) SPECIMEN NUMBER: [id number] Peter HurdLTBRYAN, [id number] 00:00:00* Test Item Value Reference Range Interpretation Comme nts CULTURE, URINE (test code = 50395) SPECIMEN NUMBER: [id number] Peter Romero AustinVAGINAL PATHOGENS DNA [id number] 00:00:00* Test Item Value Reference Range Interpretation Comme nts GEORGETTE SPECIES (test code = ) POSITIVE G. VAGINALIS (test code = 42466) POSITIVE T. VAGINALIS (test code = 84595) NEGATIVE Peter Romero AustinVAGINAL PATHOGENS DNA [id number] 00:00:00* Test Item Value Reference Range Interpretation Comme nts GEORGETTE SPECIES (test code = 77811) POSITIVE G. VAGINALIS (test code = 69032) POSITIVE T. VAGINALIS (test code = 17143) NEGATIVE Peter Romero AustinVAGINAL PATHOGENS DNA [id number] 00:00:00* Test Item Value Reference Range Interpretation Comme nts GEORGETTE SPECIES (test code = 25813) POSITIVE G. VAGINALIS (test code = 09900) POSITIVE T. VAGINALIS (test code = 60074) NEGATIVE Peter F AustinVAGINAL PATHOGENS DNA [id number] 00:00:00* Test Item Value Reference Range Interpretation Comme nts GEORGETTE SPECIES (test code = 93443) POSITIVE G. VAGINALIS (test code = 71502) POSITIVE T. VAGINALIS (test code = 65191) NEGATIVE Peter Romero AustinVAGINAL PATHOGENS DNA [id number] 00:00:00* Test Item Value Reference Range Interpretation Comme nts GEORGETTE SPECIES (test code = 07413) POSITIVE G. VAGINALIS (test code = 39461) POSITIVE T. VAGINALIS (test code = 73873) NEGATIVE Peter Romero AustinVAGINAL PATHOGENS DNA [id number] 00:00:00* Test Item Value Reference Range Interpretation Comme nts GEORGETTE SPECIES (test code = 11635) POSITIVE G. VAGINALIS (test code = 63657) POSITIVE T. VAGINALIS (test code = 15102) NEGATIVE Peter Romero AustinVAGINAL PATHOGENS DNA [id number] 00:00:00* Test Item Value Reference Range Interpretation Comme nts GEORGETTE SPECIES (test code = 77366) POSITIVE G. VAGINALIS (test code = 17379) POSITIVE T. VAGINALIS (test code = 65834) NEGATIVE Peter Romero AustinVAGINAL PATHOGENS DNA [id number] 00:00:00* Test Item Value Reference Range Interpretation Comme nts GEORGETTE SPECIES (test code = 95882) POSITIVE G. VAGINALIS (test code = 47834) POSITIVE T. VAGINALIS (test code = 34668) NEGATIVE Peter Romero AustinVAGINAL PATHOGENS DNA [id number] 00:00:00* Test Item Value Reference Range Interpretation Comme nts GEORGETTE SPECIES (test code = 90351) POSITIVE G. VAGINALIS (test code = 76551) POSITIVE T. VAGINALIS (test code = 67279) NEGATIVE Peter Romero AustinVAGINAL PATHOGENS DNA [id number] 00:00:00* Test Item Value Reference Range Interpretation Comme nts GEORGETTE SPECIES (test code = 07701) POSITIVE G. VAGINALIS (test code = 28184) POSITIVE T. VAGINALIS (test code = 36370) NEGATIVE Peter LoftonCULTURE, [id number] 00:00:00* Test Item Value Reference Range Interpretation Comme nts CULTURE, URINE (test code = 07910) SPECIMEN NUMBER: [id number] Peter Ugarte, [id number] 00:00:00* Test Item Value Reference Range Interpretation Comme nts CULTURE, URINE (test code = 97373) SPECIMEN NUMBER: [id number] Peter Ugarte, [id number] 00:00:00* Test Item Value Reference Range Interpretation Comme nts CULTURE, URINE (test code = 10805) SPECIMEN NUMBER: [id number] Peter Ugarte [id number] 00:00:00* Test Item Value Reference Range Interpretation Comme nts CULTURE, URINE (test code = 05129) SPECIMEN NUMBER: [id number] Peter Ugarte [id number] 00:00:00* Test Item Value Reference Range Interpretation Comme nts CULTURE, URINE (test code = 86139) SPECIMEN NUMBER: [id number] Peter Ugarte [id number] 00:00:00* Test Item Value Reference Range Interpretation Comme nts CULTURE, URINE (test code = 36688) SPECIMEN NUMBER: [id number] Peter Ugarte, [id number] 00:00:00* Test Item Value Reference Range Interpretation Comme nts CULTURE, URINE (test code = 72076) SPECIMEN NUMBER: [id number] Peter Ugarte [id number] 00:00:00* Test Item Value Reference Range Interpretation Comme nts CULTURE, URINE (test code = 09083) SPECIMEN NUMBER: [id number] Peter Ugarte [id number] 00:00:00* Test Item Value Reference Range Interpretation Comme nts CULTURE, URINE (test code = 11783) SPECIMEN NUMBER: [id number] Peter Ugarte, [id number] 00:00:00* Test Item Value Reference Range Interpretation Comme nts CULTURE, URINE (test code = 75221) SPECIMEN NUMBER: [id number] Peter Ugarte, [id number] 00:00:00* Test Item Value Reference Range Interpretation Comme nts CULTURE, URINE (test code = 37873) SPECIMEN NUMBER: [id number] Peter Ugarte, [id number] 00:00:00* Test Item Value Reference Range Interpretation Comme nts CULTURE, URINE (test code = 69487) SPECIMEN NUMBER: [id number] Peter Ugarte, [id number] 00:00:00* Test Item Value Reference Range Interpretation Comme nts CULTURE, URINE (test code = 87998) SPECIMEN NUMBER: [id number] Peter Ugarte [id number] 00:00:00* Test Item Value Reference Range Interpretation Comme nts CULTURE, URINE (test code = 01392) SPECIMEN NUMBER: [id number] Peter Ugarte [id number] 00:00:00* Test Item Value Reference Range Interpretation Comme nts CULTURE, URINE (test code = 47799) SPECIMEN NUMBER: [id number] Peter Ugarte [id number] 00:00:00* Test Item Value Reference Range Interpretation Comme nts CULTURE, URINE (test code = 68400) SPECIMEN NUMBER: [id number] Peter Ugarte, [id number] 00:00:00* Test Item Value Reference Range Interpretation Comme nts CULTURE, URINE (test code = 15322) SPECIMEN NUMBER: [id number] Peter Ugarte, [id number] 00:00:00* Test Item Value Reference Range Interpretation Comme nts CULTURE, URINE (test code = 44431) SPECIMEN NUMBER: [id number] Peter Ugarte [id number] 00:00:00* Test Item Value Reference Range Interpretation Comme nts CULTURE, URINE (test code = 27772) SPECIMEN NUMBER: [id number] Peter Ugarte, [id number] 00:00:00* Test Item Value Reference Range Interpretation Comme nts CULTURE, URINE (test code = 42370) SPECIMEN NUMBER: [id number] Peter Ugarte, [id number] 00:00:00* Test Item Value Reference Range Interpretation Comme nts CULTURE, URINE (test code = 09351) SPECIMEN NUMBER: [id number] Peter Ugarte, [id number] 00:00:00* Test Item Value Reference Range Interpretation Comme nts CULTURE, URINE (test code = 22615) SPECIMEN NUMBER: [id number] Peter LoftonCULTURE, [id number] 00:00:00* Test Item Value Reference Range Interpretation Comme nts CULTURE, URINE (test code = 85842) SPECIMEN NUMBER: [id number] Peter HurdLTURE, [id number] 00:00:00* Test Item Value Reference Range Interpretation Comme nts CULTURE, URINE (test code = 76391) SPECIMEN NUMBER: [id number] Peter LoftonCULTURE, [id number] 00:00:00* Test Item Value Reference Range Interpretation Comme nts CULTURE, URINE (test code = 72431) SPECIMEN NUMBER: [id number] Peter Romero AustinVAGINAL PATHOGENS DNA [id number] 00:00:00* Test Item Value Reference Range Interpretation Comme nts GEORGETTE SPECIES (test code = ) POSITIVE G. VAGINALIS (test code = 84565) NEGATIVE T. VAGINALIS (test code = 95054) NEGATIVE Peter Romero AustinVAGINAL PATHOGENS DNA [id number] 00:00:00* Test Item Value Reference Range Interpretation Comme nts GEORGETTE SPECIES (test code = 51400) POSITIVE G. VAGINALIS (test code = 25642) NEGATIVE T. VAGINALIS (test code = 41509) NEGATIVE Peter Romero AustinVAGINAL PATHOGENS DNA [id number] 00:00:00* Test Item Value Reference Range Interpretation Comme nts GEORGETTE SPECIES (test code = 16321) POSITIVE G. VAGINALIS (test code = 23051) NEGATIVE T. VAGINALIS (test code = 81204) NEGATIVE Peter Romero AustinVAGINAL PATHOGENS DNA [id number] 00:00:00* Test Item Value Reference Range Interpretation Comme nts GEORGETTE SPECIES (test code = 16002) POSITIVE G. VAGINALIS (test code = 79288) NEGATIVE T. VAGINALIS (test code = 33667) NEGATIVE Peter Romero AustinVAGINAL PATHOGENS DNA [id number] 00:00:00* Test Item Value Reference Range Interpretation Comme nts GEORGETTE SPECIES (test code = 11366) POSITIVE G. VAGINALIS (test code = 41625) NEGATIVE T. VAGINALIS (test code = 69361) NEGATIVE Peter Romero AustinVAGINAL PATHOGENS DNA [id number] 00:00:00* Test Item Value Reference Range Interpretation Comme nts GEORGETTE SPECIES (test code = ) POSITIVE G. VAGINALIS (test code = 39399) NEGATIVE T. VAGINALIS (test code = 97879) NEGATIVE Peter Romero AustinVAGINAL PATHOGENS DNA [id number] 00:00:00* Test Item Value Reference Range Interpretation Comme nts GEORGETTE SPECIES (test code = 51067) POSITIVE G. VAGINALIS (test code = 48324) NEGATIVE T. VAGINALIS (test code = 82516) NEGATIVE Peter Romero AustinVAGINAL PATHOGENS DNA [id number] 00:00:00* Test Item Value Reference Range Interpretation Comme nts GEORGETTE SPECIES (test code = 56597) POSITIVE G. VAGINALIS (test code = 80775) NEGATIVE T. VAGINALIS (test code = 73298) NEGATIVE Peter Romero AustinVAGINAL PATHOGENS DNA [id number] 00:00:00* Test Item Value Reference Range Interpretation Comme nts GEORGETTE SPECIES (test code = 10297) POSITIVE G. VAGINALIS (test code = 26052) NEGATIVE T. VAGINALIS (test code = 66422) NEGATIVE Peter Romero AustinVAGINAL PATHOGENS DNA [id number] 00:00:00* Test Item Value Reference Range Interpretation Comme nts GEORGETTE SPECIES (test code = 64502) POSITIVE G. VAGINALIS (test code = 13033) NEGATIVE T. VAGINALIS (test code = 52247) NEGATIVE Peter Romero AustinVAGINAL PATHOGENS DNA [id number] 00:00:00* Test Item Value Reference Range Interpretation Comme nts GEORGETTE SPECIES (test code = 56931) POSITIVE G. VAGINALIS (test code = 05876) NEGATIVE T. VAGINALIS (test code = 16056) NEGATIVE Peter Romero AustinVAGINAL PATHOGENS DNA [id number] 00:00:00* Test Item Value Reference Range Interpretation Comme nts GEORGETTE SPECIES (test code = 53775) POSITIVE G. VAGINALIS (test code = 08957) NEGATIVE T. VAGINALIS (test code = 59919) NEGATIVE Peter F AustinVAGINAL PATHOGENS DNA [id number] 00:00:00* Test Item Value Reference Range Interpretation Comme nts GEORGETTE SPECIES (test code = 72513) POSITIVE G. VAGINALIS (test code = 90654) NEGATIVE T. VAGINALIS (test code = 03320) NEGATIVE Peter F AustinCT/NG, NAAT, [id number] 16:12:27* Test Item Value Reference Range Interpretation Comme nts CHLAMYDIA, NAAT, URINE (test code = 07136) NEGATIVE NEGATIVE Testing is perfo rmed with Orlin KELLY 6800/8800 systems usingreal-time polymerase chain reaction (PCR) method. A negative result does not exclude low level infection, specimensampling error, or collection error. GONORRHEA, NAAT, URINE (test code = 73702) NEGATIVE NEGATIVE Testing is perfo rmed with Orlin KELLY 6800/8800 systems usingreal-time polymerase chain reaction (PCR) method. A negative result does not exclude low level infection, specimensampling error, or collection error. CT/NG, NAAT, [id number] 00:00:00* Test Item Value Reference Range Interpretation Comme nts CHLAMYDIA, NAAT, URINE (test code = 27356) NEGATIVE GONORRHEA, NAAT, URINE (test code = 23035) NEGATIVE Peter F AustinCT/NG, NAAT, [id number] 00:00:00* Test Item Value Reference Range Interpretation Comme nts CHLAMYDIA, NAAT, URINE (test code = 36879) NEGATIVE GONORRHEA, NAAT, URINE (test code = 91380) NEGATIVE Peter F AustinCT/NG, NAAT, [id number] 00:00:00* Test Item Value Reference Range Interpretation Comme nts CHLAMYDIA, NAAT, URINE (test code = 59374) NEGATIVE GONORRHEA, NAAT, URINE (test code = 78015) NEGATIVE Peter F AustinCT/NG, NAAT, [id number] 00:00:00* Test Item Value Reference Range Interpretation Comme nts CHLAMYDIA, NAAT, URINE (test code = 28014) NEGATIVE GONORRHEA, NAAT, URINE (test code = 65082) NEGATIVE Peter F AustinCT/NG, NAAT, [id number] 00:00:00* Test Item Value Reference Range Interpretation Comme nts CHLAMYDIA, NAAT, URINE (test code = 81791) NEGATIVE GONORRHEA, NAAT, URINE (test code = 31823) NEGATIVE Peter F AustinCT/NG, NAAT, [id number] 00:00:00* Test Item Value Reference Range Interpretation Comme nts CHLAMYDIA, NAAT, URINE (test code = 44637) NEGATIVE GONORRHEA, NAAT, URINE (test code = 72689) NEGATIVE Peter F AustinCT/NG, NAAT, [id number] 00:00:00* Test Item Value Reference Range Interpretation Comme nts CHLAMYDIA, NAAT, URINE (test code = 62215) NEGATIVE GONORRHEA, NAAT, URINE (test code = 17338) NEGATIVE Peter F AustinCT/NG, NAAT, [id number] 00:00:00* Test Item Value Reference Range Interpretation Comme nts CHLAMYDIA, NAAT, URINE (test code = 68778) NEGATIVE GONORRHEA, NAAT, URINE (test code = 03512) NEGATIVE Peter F AustinCT/NG, NAAT, [id number] 00:00:00* Test Item Value Reference Range Interpretation Comme nts CHLAMYDIA, NAAT, URINE (test code = 00192) NEGATIVE GONORRHEA, NAAT, URINE (test code = 66554) NEGATIVE Peter F AustinCT/NG, NAAT, [id number] 00:00:00* Test Item Value Reference Range Interpretation Comme nts CHLAMYDIA, NAAT, URINE (test code = 85410) NEGATIVE GONORRHEA, NAAT, URINE (test code = 97892) NEGATIVE Peter F AustinCT/NG, NAAT, [id number] 00:00:00* Test Item Value Reference Range Interpretation Comme nts CHLAMYDIA, NAAT, URINE (test code = 41950) NEGATIVE GONORRHEA, NAAT, URINE (test code = 94434) NEGATIVE Peter F AustinCT/NG, NAAT, [id number] 00:00:00* Test Item Value Reference Range Interpretation Comme nts CHLAMYDIA, NAAT, URINE (test code = 11511) NEGATIVE GONORRHEA, NAAT, URINE (test code = 69299) NEGATIVE Peter F AustinCT/NG, NAAT, [id number] 00:00:00* Test Item Value Reference Range Interpretation Comme nts CHLAMYDIA, NAAT, URINE (test code = 98239) NEGATIVE GONORRHEA, NAAT, URINE (test code = 67426) NEGATIVE Peter F AustinCULTURE, [id number] 09:18:49SPECIMEN NUMBER: [id number] CULTURE, URINE SPECIMEN NUMBER: [id number] SPECIMEN COMMENT: URINE SOURCE: URINE REPORT STATUS: FINAL FINAL REPORT: 02/11/2024 50-100,000 CFU/ML UROGENITAL JUNAID PRESENT NO COMMON PATHOGENSCULTURE, [id number] 00:00:00* Test Item Value Reference Range Interpretation Comme nts CULTURE, URINE (test code = 95607) SPECIMEN NUMBER: [id number] Peter HurdLTBRYAN, [id number] 00:00:00* Test Item Value Reference Range Interpretation Comme nts CULTURE, URINE (test code = 68932) SPECIMEN NUMBER: [id number] Peter HurdLTBRYAN, [id number] 00:00:00* Test Item Value Reference Range Interpretation Comme nts CULTURE, URINE (test code = 64530) SPECIMEN NUMBER: [id number] Peter Ugarte, [id number] 00:00:00* Test Item Value Reference Range Interpretation Comme nts CULTURE, URINE (test code = 19972) SPECIMEN NUMBER: [id number] Peter HurdLTBRYAN, [id number] 00:00:00* Test Item Value Reference Range Interpretation Comme nts CULTURE, URINE (test code = 28256) SPECIMEN NUMBER: [id number] Peter HurdLTBRYAN, [id number] 00:00:00* Test Item Value Reference Range Interpretation Comme nts CULTURE, URINE (test code = 56692) SPECIMEN NUMBER: [id number] Peter HurdLTBRYAN, [id number] 00:00:00* Test Item Value Reference Range Interpretation Comme nts CULTURE, URINE (test code = 09286) SPECIMEN NUMBER: [id number] Peter HurdLTBRYAN, [id number] 00:00:00* Test Item Value Reference Range Interpretation Comme nts CULTURE, URINE (test code = 92784) SPECIMEN NUMBER: [id number] Peter HurdLTBRYAN, [id number] 00:00:00* Test Item Value Reference Range Interpretation Comme nts CULTURE, URINE (test code = 77904) SPECIMEN NUMBER: [id number] Peter HurdLTURE, [id number] 00:00:00* Test Item Value Reference Range Interpretation Comme nts CULTURE, URINE (test code = 86417) SPECIMEN NUMBER: [id number] Peter HurdLTURE, [id number] 00:00:00* Test Item Value Reference Range Interpretation Comme nts CULTURE, URINE (test code = 27182) SPECIMEN NUMBER: [id number] Peter Ugarte, [id number] 00:00:00* Test Item Value Reference Range Interpretation Comme nts CULTURE, URINE (test code = 71008) SPECIMEN NUMBER: [id number] Peter LoftonCULTURE, [id number] 00:00:00* Test Item Value Reference Range Interpretation Comme nts CULTURE, URINE (test code = 44814) SPECIMEN NUMBER: [id number] Peter LoftonDRUG ABUSE SCREEN 10 REFLEX [id number] 05:47:13* Test Item Value Reference Range Interpretation Comme nts AMPHETAMINES (test code = 3201) NEGATIVE NEGATIVE BARBITURATES (test code = 3202) NEGATIVE NEGATIVE BENZODIAZEPINES (test code = 3203) NEGATIVE NEGATIVE CANNABINOIDS (test code = 3204) NEGATIVE NEGATIVE COCAINE METABOLITE (test code = 3205) NEGATIVE NEGATIVE OPIATES (test code = 3209) NEGATIVE NEGATIVE OXYCODONE (test code = 64412) NEGATIVE NEGATIVE PHENCYCLIDINE (test code = 3210) NEGATIVE NEGATIVE METHADONE (test code = 3207) NEGATIVE NEGATIVE BUPRENORPHINE (test code = 85555) NEGATIVE NEGATIVE SOURCE (test code = 026541) URINE SEE BELOW FO R THRESHOLDS AND IMPORTANT METHOD NOTES ANALYTE SCREENING CUTOFF CONFIRMATORY CUTOFF AMPHETAMINES 500 NG/ML 100 NG/MLBARBITURATES 200 NG/ML 100 NG/MLBENZODIAZEPINES 200 NG/ML 100 NG/MLCANNABINOIDS (THC) 20 NG/ML 15 NG/MLCOCAINE METABOLITES 150 NG/ML 100 NG/MLOPIATE METABOLITES 300 NG/ML 100 NG/MLOXYCODONE 100 NG/ML 100 NG/MLPHENCYCLIDINE (PCP) 25 NG/ML 25 NG/MLMETHADONE 300 NG/ML 100 NG/MLBUPRENORPHINE 5 NG/ML 5 NG/ML NOTE: Screening methodology is qualitative Enzyme Immunoassay.The screening method may be less sensitive for certain medicationsincluding clonazepam and lorazepam in the benzodiazepine assay andtramadol or fentanyl in the opiate assay, amongst others. Patientcompliance, hydration status, timing and dose of medications, drugabsorption and specimen quality may affect screening assay.For clinical discrepancies, consider directed testing for specificcompounds or contact the laboratory [place] conf[place] testing. This test is specified for medicalpurposes only. It is not valid for forensic use. UNLESS OTHERWISE INDICATED, ALL TESTING PERFORMED AT [facility] [address] [place] [id number] CREDIT INTERVIEWER: GOPAL BACON M.D. CLIA NUMBER [id number] [facility] [place]. [id number] CBC W/AUTO DIFF WITH [id number] 04:08:44* Test Item Value Reference Range Interpretation Comme nts WBC (test code = 1001) 9.6 K/UL 3.5-11.0 RBC (test code = 1002) 3.97 M/UL 3.80-5.40 HEMOGLOBIN (test code = 1003) 9.9 G/DL 11.5-15.5 L HEMATOCRIT (test code = 1004) 32.1 % 34.0-45.0 L MCV (test code = 1005) 80.9 fL 80.0-99.0 MCH (test code = 1006) 24.9 PG 25.0-33.0 L MCHC (test code = 1007) 30.8 G/DL 31.0-36.0 L RDW (test code = 1038) 14.6 % 11.5-15.0 NEUTROPHILS (test code = 1008) 72.1 % LYMPHOCYTES (test code = 1010) 21.2 % MONOCYTES (test code = 1011) 4.0 % EOSINOPHILS (test code = 1012) 1.6 % BASOPHILS (test code = 1013) 0.3 % IMMATURE GRANULOCYTES (test code = 1036) 0.8 % NUCLEATED RBCS (test code = 1065) 0.0 /100 WBC'S See_Comment [Automated messa ge] The system which generated this result transmitted reference range: 0.0. The reference range was not used to interpret this result as normal/abnormal. PLATELET COUNT (test code = 1015) 240 K/UL 130-400 ABSOLUTE NEUTROPHILS (test code = 1066) 6.90 K/UL 1.50-7.50 ABSOLUTE LYMPHOCYTES (test code = 1067) 2.03 K/UL 1.00-4.00 ABSOLUTE MONOCYTES (test code = 1068) 0.38 K/UL 0.20-1.00 ABSOLUTE EOSINOPHILS (test code = 1040) 0.15 K/UL 0.00-0.50 ABSOLUTE BASOPHILS (test code = 1069) 0.03 K/UL 0.00-0.20 ABS IMMATURE GRANULOCYTES (test code = 1020) 0.08 K/UL 0.00-0.10 ABS NUCLEATED RBCS (test code = 67637) 0.00 K/UL 0.00-0.11 HIV 1/2 4TH GEN, RFLX [id number] 03:35:05* Test Item Value Reference Range Interpretation Comme nts HIV 1/2 4TH GEN, RFLX CONF ( test code = 3514) NON-REACTIVE NON-REACTIVE [id number] 03:00:07* Test Item Value Reference Range Interpretation Comme nts RPR RESULT (test code = 3501) NON-REACTIVE NON-REACTIVE RPR TITER (test code = 3500) NOT INDIC. TITER NOT INDIC. DRUG ABUSE SCREEN 10 REFLEX [id number] 00:00:00* Test Item Value Reference Range Interpretation Comme nts AMPHETAMINES (test code = 3201) NEGATIVE BARBITURATES (test code = 3202) NEGATIVE BENZODIAZEPINES (test code = 3203) NEGATIVE CANNABINOIDS (test code = 3204) NEGATIVE COCAINE METABOLITE (test cod e = 3205) NEGATIVE OPIATES (test code = 3209) NEGATIVE OXYCODONE (test code = 33152) NEGATIVE PHENCYCLIDINE (test code = 3210) NEGATIVE METHADONE (test code = 3207) NEGATIVE BUPRENORPHINE (test code = 60295) NEGATIVE SOURCE (test code = 672743) URINE Peter F AustinHIV 1/2 4TH GEN, RFLX [id number] 00:00:00* Test Item Value Reference Range Interpretation Comme nts HIV 1/2 4TH GEN, RFLX CONF ( test code = 3514) NON-REACTIVE Peter [id number] 00:00:00* Test Item Value Reference Range Interpretation Comme nts RPR RESULT (test code = 3501) NON-REACTIVE RPR TITER (test code = 3500) NOT INDIC. TITER Peter LoftonCBC W/AUTO [id number] 00:00:00* Test Item Value Reference Range Interpretation Comme nts WBC (test code = 1001) 9.6 K/UL RBC (test code = 1002) 3.97 M/UL HEMOGLOBIN (test code = 1003) 9.9 G/DL HEMATOCRIT (test code = 1004) 32.1 % MCV (test code = 1005) 80.9 fL MCH (test code = 1006) 24.9 PG MCHC (test code = 1007) 30.8 G/DL RDW (test code = 1038) 14.6 % NEUTROPHILS (test code = 1008) 72.1 % LYMPHOCYTES (test code = 1010) 21.2 % MONOCYTES (test code = 1011) 4.0 % EOSINOPHILS (test code = 1012) 1.6 % BASOPHILS (test code = 1013) 0.3 % IMMATURE GRANULOCYTES (test code = 1036) 0.8 % NUCLEATED RBCS (test code = 1065) 0.0 /100WBC'S PLATELET COUNT (test code = 1015) 240 K/UL ABSOLUTE NEUTROPHILS (test c ode = 1066) 6.90 K/UL ABSOLUTE LYMPHOCYTES (test c ode = 1067) 2.03 K/UL ABSOLUTE MONOCYTES (test cod e = 1068) 0.38 K/UL ABSOLUTE EOSINOPHILS (test c ode = 1040) 0.15 K/UL ABSOLUTE BASOPHILS (test cod e = 1069) 0.03 K/UL ABS IMMATURE GRANULOCYTES (t est code = 1020) 0.08 K/UL ABS NUCLEATED RBCS (test cod e = 39289) 0.00 K/UL Peter LoftonDRUG ABUSE SCREEN 10 REFLEX [id number] 00:00:00* Test Item Value Reference Range Interpretation Comme nts AMPHETAMINES (test code = 3201) NEGATIVE BARBITURATES (test code = 3202) NEGATIVE BENZODIAZEPINES (test code = 3203) NEGATIVE CANNABINOIDS (test code = 3204) NEGATIVE COCAINE METABOLITE (test cod e = 3205) NEGATIVE OPIATES (test code = 3209) NEGATIVE OXYCODONE (test code = 09070) NEGATIVE PHENCYCLIDINE (test code = 3210) NEGATIVE METHADONE (test code = 3207) NEGATIVE BUPRENORPHINE (test code = 20326) NEGATIVE SOURCE (test code = 353443) URINE Peter LoftonHIV 1/2 4TH GEN, RFLX [id number] 00:00:00* Test Item Value Reference Range Interpretation Comme nts HIV 1/2 4TH GEN, RFLX CONF ( test code = 3514) NON-REACTIVE Peter [id number] 00:00:00* Test Item Value Reference Range Interpretation Comme nts RPR RESULT (test code = 3501) NON-REACTIVE RPR TITER (test code = 3500) NOT INDIC. TITER Peter LoftonCBC W/AUTO [id number] 00:00:00* Test Item Value Reference Range Interpretation Comme nts WBC (test code = 1001) 9.6 K/UL RBC (test code = 1002) 3.97 M/UL HEMOGLOBIN (test code = 1003) 9.9 G/DL HEMATOCRIT (test code = 1004) 32.1 % MCV (test code = 1005) 80.9 fL MCH (test code = 1006) 24.9 PG MCHC (test code = 1007) 30.8 G/DL RDW (test code = 1038) 14.6 % NEUTROPHILS (test code = 1008) 72.1 % LYMPHOCYTES (test code = 1010) 21.2 % MONOCYTES (test code = 1011) 4.0 % EOSINOPHILS (test code = 1012) 1.6 % BASOPHILS (test code = 1013) 0.3 % IMMATURE GRANULOCYTES (test code = 1036) 0.8 % NUCLEATED RBCS (test code = 1065) 0.0 /100WBC'S PLATELET COUNT (test code = 1015) 240 K/UL ABSOLUTE NEUTROPHILS (test c ode = 1066) 6.90 K/UL ABSOLUTE LYMPHOCYTES (test c ode = 1067) 2.03 K/UL ABSOLUTE MONOCYTES (test cod e = 1068) 0.38 K/UL ABSOLUTE EOSINOPHILS (test c ode = 1040) 0.15 K/UL ABSOLUTE BASOPHILS (test cod e = 1069) 0.03 K/UL ABS IMMATURE GRANULOCYTES (t est code = 1020) 0.08 K/UL ABS NUCLEATED RBCS (test cod e = 75993) 0.00 K/UL Peter LoftonDRUG ABUSE SCREEN 10 REFLEX [id number] 00:00:00* Test Item Value Reference Range Interpretation Comme nts AMPHETAMINES (test code = 3201) NEGATIVE BARBITURATES (test code = 3202) NEGATIVE BENZODIAZEPINES (test code = 3203) NEGATIVE CANNABINOIDS (test code = 3204) NEGATIVE COCAINE METABOLITE (test cod e = 3205) NEGATIVE OPIATES (test code = 3209) NEGATIVE OXYCODONE (test code = 21164) NEGATIVE PHENCYCLIDINE (test code = 3210) NEGATIVE METHADONE (test code = 3207) NEGATIVE BUPRENORPHINE (test code = 09466) NEGATIVE SOURCE (test code = 406072) URINE Peter LoftonHIV 1/2 4TH GEN, RFLX [id number] 00:00:00* Test Item Value Reference Range Interpretation Comme nts HIV 1/2 4TH GEN, RFLX CONF ( test code = 3514) NON-REACTIVE Peter [id number] 00:00:00* Test Item Value Reference Range Interpretation Comme nts RPR RESULT (test code = 3501) NON-REACTIVE RPR TITER (test code = 3500) NOT INDIC. TITER Peter LoftonCBC W/AUTO [id number] 00:00:00* Test Item Value Reference Range Interpretation Comme nts WBC (test code = 1001) 9.6 K/UL RBC (test code = 1002) 3.97 M/UL HEMOGLOBIN (test code = 1003) 9.9 G/DL HEMATOCRIT (test code = 1004) 32.1 % MCV (test code = 1005) 80.9 fL MCH (test code = 1006) 24.9 PG MCHC (test code = 1007) 30.8 G/DL RDW (test code = 1038) 14.6 % NEUTROPHILS (test code = 1008) 72.1 % LYMPHOCYTES (test code = 1010) 21.2 % MONOCYTES (test code = 1011) 4.0 % EOSINOPHILS (test code = 1012) 1.6 % BASOPHILS (test code = 1013) 0.3 % IMMATURE GRANULOCYTES (test code = 1036) 0.8 % NUCLEATED RBCS (test code = 1065) 0.0 /100WBC'S PLATELET COUNT (test code = 1015) 240 K/UL ABSOLUTE NEUTROPHILS (test c ode = 1066) 6.90 K/UL ABSOLUTE LYMPHOCYTES (test c ode = 1067) 2.03 K/UL ABSOLUTE MONOCYTES (test cod e = 1068) 0.38 K/UL ABSOLUTE EOSINOPHILS (test c ode = 1040) 0.15 K/UL ABSOLUTE BASOPHILS (test cod e = 1069) 0.03 K/UL ABS IMMATURE GRANULOCYTES (t est code = 1020) 0.08 K/UL ABS NUCLEATED RBCS (test cod e = 68751) 0.00 K/UL Peter LoftonDRUG ABUSE SCREEN 10 REFLEX [id number] 00:00:00* Test Item Value Reference Range Interpretation Comme nts AMPHETAMINES (test code = 3201) NEGATIVE BARBITURATES (test code = 3202) NEGATIVE BENZODIAZEPINES (test code = 3203) NEGATIVE CANNABINOIDS (test code = 3204) NEGATIVE COCAINE METABOLITE (test cod e = 3205) NEGATIVE OPIATES (test code = 3209) NEGATIVE OXYCODONE (test code = 38865) NEGATIVE PHENCYCLIDINE (test code = 3210) NEGATIVE METHADONE (test code = 3207) NEGATIVE BUPRENORPHINE (test code = 49105) NEGATIVE SOURCE (test code = 101964) URINE Peter LoftonHIV 1/2 4TH GEN, RFLX [id number] 00:00:00* Test Item Value Reference Range Interpretation Comme nts HIV 1/2 4TH GEN, RFLX CONF ( test code = 3514) NON-REACTIVE Peter [id number] 00:00:00* Test Item Value Reference Range Interpretation Comme nts RPR RESULT (test code = 3501) NON-REACTIVE RPR TITER (test code = 3500) NOT INDIC. TITER Peter LoftonCBC W/AUTO [id number] 00:00:00* Test Item Value Reference Range Interpretation Comme nts WBC (test code = 1001) 9.6 K/UL RBC (test code = 1002) 3.97 M/UL HEMOGLOBIN (test code = 1003) 9.9 G/DL HEMATOCRIT (test code = 1004) 32.1 % MCV (test code = 1005) 80.9 fL MCH (test code = 1006) 24.9 PG MCHC (test code = 1007) 30.8 G/DL RDW (test code = 1038) 14.6 % NEUTROPHILS (test code = 1008) 72.1 % LYMPHOCYTES (test code = 1010) 21.2 % MONOCYTES (test code = 1011) 4.0 % EOSINOPHILS (test code = 1012) 1.6 % BASOPHILS (test code = 1013) 0.3 % IMMATURE GRANULOCYTES (test code = 1036) 0.8 % NUCLEATED RBCS (test code = 1065) 0.0 /100WBC'S PLATELET COUNT (test code = 1015) 240 K/UL ABSOLUTE NEUTROPHILS (test c ode = 1066) 6.90 K/UL ABSOLUTE LYMPHOCYTES (test c ode = 1067) 2.03 K/UL ABSOLUTE MONOCYTES (test cod e = 1068) 0.38 K/UL ABSOLUTE EOSINOPHILS (test c ode = 1040) 0.15 K/UL ABSOLUTE BASOPHILS (test cod e = 1069) 0.03 K/UL ABS IMMATURE GRANULOCYTES (t est code = 1020) 0.08 K/UL ABS NUCLEATED RBCS (test cod e = 48856) 0.00 K/UL Peter LoftonDRUG ABUSE SCREEN 10 REFLEX [id number] 00:00:00* Test Item Value Reference Range Interpretation Comme nts AMPHETAMINES (test code = 3201) NEGATIVE BARBITURATES (test code = 3202) NEGATIVE BENZODIAZEPINES (test code = 3203) NEGATIVE CANNABINOIDS (test code = 3204) NEGATIVE COCAINE METABOLITE (test cod e = 3205) NEGATIVE OPIATES (test code = 3209) NEGATIVE OXYCODONE (test code = 79989) NEGATIVE PHENCYCLIDINE (test code = 3210) NEGATIVE METHADONE (test code = 3207) NEGATIVE BUPRENORPHINE (test code = 74848) NEGATIVE SOURCE (test code = 628036) URINE Peter LoftonHIV 1/2 4TH GEN, RFLX [id number] 00:00:00* Test Item Value Reference Range Interpretation Comme nts HIV 1/2 4TH GEN, RFLX CONF ( test code = 3514) NON-REACTIVE Peter [id number] 00:00:00* Test Item Value Reference Range Interpretation Comme nts RPR RESULT (test code = 3501) NON-REACTIVE RPR TITER (test code = 3500) NOT INDIC. TITER Peter LofotnCBC W/AUTO [id number] 00:00:00* Test Item Value Reference Range Interpretation Comme nts WBC (test code = 1001) 9.6 K/UL RBC (test code = 1002) 3.97 M/UL HEMOGLOBIN (test code = 1003) 9.9 G/DL HEMATOCRIT (test code = 1004) 32.1 % MCV (test code = 1005) 80.9 fL MCH (test code = 1006) 24.9 PG MCHC (test code = 1007) 30.8 G/DL RDW (test code = 1038) 14.6 % NEUTROPHILS (test code = 1008) 72.1 % LYMPHOCYTES (test code = 1010) 21.2 % MONOCYTES (test code = 1011) 4.0 % EOSINOPHILS (test code = 1012) 1.6 % BASOPHILS (test code = 1013) 0.3 % IMMATURE GRANULOCYTES (test code = 1036) 0.8 % NUCLEATED RBCS (test code = 1065) 0.0 /100WBC'S PLATELET COUNT (test code = 1015) 240 K/UL ABSOLUTE NEUTROPHILS (test c ode = 1066) 6.90 K/UL ABSOLUTE LYMPHOCYTES (test c ode = 1067) 2.03 K/UL ABSOLUTE MONOCYTES (test cod e = 1068) 0.38 K/UL ABSOLUTE EOSINOPHILS (test c ode = 1040) 0.15 K/UL ABSOLUTE BASOPHILS (test cod e = 1069) 0.03 K/UL ABS IMMATURE GRANULOCYTES (t est code = 1020) 0.08 K/UL ABS NUCLEATED RBCS (test cod e = 63236) 0.00 K/UL Peter LoftonDRUG ABUSE SCREEN 10 REFLEX [id number] 00:00:00* Test Item Value Reference Range Interpretation Comme nts AMPHETAMINES (test code = 3201) NEGATIVE BARBITURATES (test code = 3202) NEGATIVE BENZODIAZEPINES (test code = 3203) NEGATIVE CANNABINOIDS (test code = 3204) NEGATIVE COCAINE METABOLITE (test cod e = 3205) NEGATIVE OPIATES (test code = 3209) NEGATIVE OXYCODONE (test code = 05130) NEGATIVE PHENCYCLIDINE (test code = 3830) NEGATIVE METHADONE (test code = 3207) NEGATIVE BUPRENORPHINE (test code = 96842) NEGATIVE SOURCE (test code = 184266) URINE Peter LoftonHIV 1/2 4TH GEN, RFLX [id number] 00:00:00* Test Item Value Reference Range Interpretation Comme nts HIV 1/2 4TH GEN, RFLX CONF ( test code = 3514) NON-REACTIVE Peter [id number] 00:00:00* Test Item Value Reference Range Interpretation Comme nts RPR RESULT (test code = 3501) NON-REACTIVE RPR TITER (test code = 3500) NOT INDIC. TITER Peter LoftonCBC W/AUTO [id number] 00:00:00* Test Item Value Reference Range Interpretation Comme nts WBC (test code = 1001) 9.6 K/UL RBC (test code = 1002) 3.97 M/UL HEMOGLOBIN (test code = 1003) 9.9 G/DL HEMATOCRIT (test code = 1004) 32.1 % MCV (test code = 1005) 80.9 fL MCH (test code = 1006) 24.9 PG MCHC (test code = 1007) 30.8 G/DL RDW (test code = 1038) 14.6 % NEUTROPHILS (test code = 1008) 72.1 % LYMPHOCYTES (test code = 1010) 21.2 % MONOCYTES (test code = 1011) 4.0 % EOSINOPHILS (test code = 1012) 1.6 % BASOPHILS (test code = 1013) 0.3 % IMMATURE GRANULOCYTES (test code = 1036) 0.8 % NUCLEATED RBCS (test code = 1065) 0.0 /100WBC'S PLATELET COUNT (test code = 1015) 240 K/UL ABSOLUTE NEUTROPHILS (test c ode = 1066) 6.90 K/UL ABSOLUTE LYMPHOCYTES (test c ode = 1067) 2.03 K/UL ABSOLUTE MONOCYTES (test cod e = 1068) 0.38 K/UL ABSOLUTE EOSINOPHILS (test c ode = 1040) 0.15 K/UL ABSOLUTE BASOPHILS (test cod e = 1069) 0.03 K/UL ABS IMMATURE GRANULOCYTES (t est code = 1020) 0.08 K/UL ABS NUCLEATED RBCS (test cod e = 27624) 0.00 K/UL Peter LoftonDRUG ABUSE SCREEN 10 REFLEX [id number] 00:00:00* Test Item Value Reference Range Interpretation Comme nts AMPHETAMINES (test code = 3201) NEGATIVE BARBITURATES (test code = 3202) NEGATIVE BENZODIAZEPINES (test code = 3203) NEGATIVE CANNABINOIDS (test code = 3204) NEGATIVE COCAINE METABOLITE (test cod e = 3205) NEGATIVE OPIATES (test code = 3209) NEGATIVE OXYCODONE (test code = 30941) NEGATIVE PHENCYCLIDINE (test code = 3210) NEGATIVE METHADONE (test code = 3207) NEGATIVE BUPRENORPHINE (test code = 55959) NEGATIVE SOURCE (test code = 657828) URINE Peter LoftonHIV 1/2 4TH GEN, RFLX [id number] 00:00:00* Test Item Value Reference Range Interpretation Comme nts HIV 1/2 4TH GEN, RFLX CONF ( test code = 3514) NON-REACTIVE Peter [id number] 00:00:00* Test Item Value Reference Range Interpretation Comme nts RPR RESULT (test code = 3501) NON-REACTIVE RPR TITER (test code = 3500) NOT INDIC. TITER Peter LoftonCBC W/AUTO [id number] 00:00:00* Test Item Value Reference Range Interpretation Comme nts WBC (test code = 1001) 9.6 K/UL RBC (test code = 1002) 3.97 M/UL HEMOGLOBIN (test code = 1003) 9.9 G/DL HEMATOCRIT (test code = 1004) 32.1 % MCV (test code = 1005) 80.9 fL MCH (test code = 1006) 24.9 PG MCHC (test code = 1007) 30.8 G/DL RDW (test code = 1038) 14.6 % NEUTROPHILS (test code = 1008) 72.1 % LYMPHOCYTES (test code = 1010) 21.2 % MONOCYTES (test code = 1011) 4.0 % EOSINOPHILS (test code = 1012) 1.6 % BASOPHILS (test code = 1013) 0.3 % IMMATURE GRANULOCYTES (test code = 1036) 0.8 % NUCLEATED RBCS (test code = 1065) 0.0 /100WBC'S PLATELET COUNT (test code = 1015) 240 K/UL ABSOLUTE NEUTROPHILS (test c ode = 1066) 6.90 K/UL ABSOLUTE LYMPHOCYTES (test c ode = 1067) 2.03 K/UL ABSOLUTE MONOCYTES (test cod e = 1068) 0.38 K/UL ABSOLUTE EOSINOPHILS (test c ode = 1040) 0.15 K/UL ABSOLUTE BASOPHILS (test cod e = 1069) 0.03 K/UL ABS IMMATURE GRANULOCYTES (t est code = 1020) 0.08 K/UL ABS NUCLEATED RBCS (test cod e = 87470) 0.00 K/UL Peter LoftonDRUG ABUSE SCREEN 10 REFLEX [id number] 00:00:00* Test Item Value Reference Range Interpretation Comme nts AMPHETAMINES (test code = 3201) NEGATIVE BARBITURATES (test code = 3202) NEGATIVE BENZODIAZEPINES (test code = 3203) NEGATIVE CANNABINOIDS (test code = 3204) NEGATIVE COCAINE METABOLITE (test cod e = 3205) NEGATIVE OPIATES (test code = 3209) NEGATIVE OXYCODONE (test code = 11892) NEGATIVE PHENCYCLIDINE (test code = 3210) NEGATIVE METHADONE (test code = 3207) NEGATIVE BUPRENORPHINE (test code = 29777) NEGATIVE SOURCE (test code = 053054) URINE Peter LoftonHIV 1/2 4TH GEN, RFLX [id number] 00:00:00* Test Item Value Reference Range Interpretation Comme nts HIV 1/2 4TH GEN, RFLX CONF ( test code = 3514) NON-REACTIVE Peter [id number] 00:00:00* Test Item Value Reference Range Interpretation Comme nts RPR RESULT (test code = 3501) NON-REACTIVE RPR TITER (test code = 3500) NOT INDIC. TITER Peter LoftonCBC W/AUTO [id number] 00:00:00* Test Item Value Reference Range Interpretation Comme nts WBC (test code = 1001) 9.6 K/UL RBC (test code = 1002) 3.97 M/UL HEMOGLOBIN (test code = 1003) 9.9 G/DL HEMATOCRIT (test code = 1004) 32.1 % MCV (test code = 1005) 80.9 fL MCH (test code = 1006) 24.9 PG MCHC (test code = 1007) 30.8 G/DL RDW (test code = 1038) 14.6 % NEUTROPHILS (test code = 1008) 72.1 % LYMPHOCYTES (test code = 1010) 21.2 % MONOCYTES (test code = 1011) 4.0 % EOSINOPHILS (test code = 1012) 1.6 % BASOPHILS (test code = 1013) 0.3 % IMMATURE GRANULOCYTES (test code = 1036) 0.8 % NUCLEATED RBCS (test code = 1065) 0.0 /100WBC'S PLATELET COUNT (test code = 1015) 240 K/UL ABSOLUTE NEUTROPHILS (test c ode = 1066) 6.90 K/UL ABSOLUTE LYMPHOCYTES (test c ode = 1067) 2.03 K/UL ABSOLUTE MONOCYTES (test cod e = 1068) 0.38 K/UL ABSOLUTE EOSINOPHILS (test c ode = 1040) 0.15 K/UL ABSOLUTE BASOPHILS (test cod e = 1069) 0.03 K/UL ABS IMMATURE GRANULOCYTES (t est code = 1020) 0.08 K/UL ABS NUCLEATED RBCS (test cod e = 25693) 0.00 K/UL Peter LoftonDRUG ABUSE SCREEN 10 REFLEX [id number] 00:00:00* Test Item Value Reference Range Interpretation Comme nts AMPHETAMINES (test code = 3201) NEGATIVE BARBITURATES (test code = 3202) NEGATIVE BENZODIAZEPINES (test code = 3203) NEGATIVE CANNABINOIDS (test code = 3204) NEGATIVE COCAINE METABOLITE (test cod e = 3205) NEGATIVE OPIATES (test code = 3209) NEGATIVE OXYCODONE (test code = 68922) NEGATIVE PHENCYCLIDINE (test code = 3210) NEGATIVE METHADONE (test code = 3207) NEGATIVE BUPRENORPHINE (test code = 86150) NEGATIVE SOURCE (test code = 743126) URINE Peter LoftonHIV 1/2 4TH GEN, RFLX [id number] 00:00:00* Test Item Value Reference Range Interpretation Comme nts HIV 1/2 4TH GEN, RFLX CONF ( test code = 3514) NON-REACTIVE Peter [id number] 00:00:00* Test Item Value Reference Range Interpretation Comme nts RPR RESULT (test code = 3501) NON-REACTIVE RPR TITER (test code = 3500) NOT INDIC. TITER Peter LoftonCBC W/AUTO [id number] 00:00:00* Test Item Value Reference Range Interpretation Comme nts WBC (test code = 1001) 9.6 K/UL RBC (test code = 1002) 3.97 M/UL HEMOGLOBIN (test code = 1003) 9.9 G/DL HEMATOCRIT (test code = 1004) 32.1 % MCV (test code = 1005) 80.9 fL MCH (test code = 1006) 24.9 PG MCHC (test code = 1007) 30.8 G/DL RDW (test code = 1038) 14.6 % NEUTROPHILS (test code = 1008) 72.1 % LYMPHOCYTES (test code = 1010) 21.2 % MONOCYTES (test code = 1011) 4.0 % EOSINOPHILS (test code = 1012) 1.6 % BASOPHILS (test code = 1013) 0.3 % IMMATURE GRANULOCYTES (test code = 1036) 0.8 % NUCLEATED RBCS (test code = 1065) 0.0 /100WBC'S PLATELET COUNT (test code = 1015) 240 K/UL ABSOLUTE NEUTROPHILS (test c ode = 1066) 6.90 K/UL ABSOLUTE LYMPHOCYTES (test c ode = 1067) 2.03 K/UL ABSOLUTE MONOCYTES (test cod e = 1068) 0.38 K/UL ABSOLUTE EOSINOPHILS (test c ode = 1040) 0.15 K/UL ABSOLUTE BASOPHILS (test cod e = 1069) 0.03 K/UL ABS IMMATURE GRANULOCYTES (t est code = 1020) 0.08 K/UL ABS NUCLEATED RBCS (test cod e = 94260) 0.00 K/UL Peter LoftonDRUG ABUSE SCREEN 10 REFLEX [id number] 00:00:00* Test Item Value Reference Range Interpretation Comme nts AMPHETAMINES (test code = 3201) NEGATIVE BARBITURATES (test code = 3202) NEGATIVE BENZODIAZEPINES (test code = 3203) NEGATIVE CANNABINOIDS (test code = 3204) NEGATIVE COCAINE METABOLITE (test cod e = 3205) NEGATIVE OPIATES (test code = 3209) NEGATIVE OXYCODONE (test code = 30526) NEGATIVE PHENCYCLIDINE (test code = 3210) NEGATIVE METHADONE (test code = 3207) NEGATIVE BUPRENORPHINE (test code = 20786) NEGATIVE SOURCE (test code = 563558) URINE Peter LoftonHIV 1/2 4TH GEN, RFLX [id number] 00:00:00* Test Item Value Reference Range Interpretation Comme nts HIV 1/2 4TH GEN, RFLX CONF ( test code = 3514) NON-REACTIVE Peter [id number] 00:00:00* Test Item Value Reference Range Interpretation Comme nts RPR RESULT (test code = 3501) NON-REACTIVE RPR TITER (test code = 3500) NOT INDIC. TITER Peter LoftonCBC W/AUTO [id number] 00:00:00* Test Item Value Reference Range Interpretation Comme nts WBC (test code = 1001) 9.6 K/UL RBC (test code = 1002) 3.97 M/UL HEMOGLOBIN (test code = 1003) 9.9 G/DL HEMATOCRIT (test code = 1004) 32.1 % MCV (test code = 1005) 80.9 fL MCH (test code = 1006) 24.9 PG MCHC (test code = 1007) 30.8 G/DL RDW (test code = 1038) 14.6 % NEUTROPHILS (test code = 1008) 72.1 % LYMPHOCYTES (test code = 1010) 21.2 % MONOCYTES (test code = 1011) 4.0 % EOSINOPHILS (test code = 1012) 1.6 % BASOPHILS (test code = 1013) 0.3 % IMMATURE GRANULOCYTES (test code = 1036) 0.8 % NUCLEATED RBCS (test code = 1065) 0.0 /100WBC'S PLATELET COUNT (test code = 1015) 240 K/UL ABSOLUTE NEUTROPHILS (test c ode = 1066) 6.90 K/UL ABSOLUTE LYMPHOCYTES (test c ode = 1067) 2.03 K/UL ABSOLUTE MONOCYTES (test cod e = 1068) 0.38 K/UL ABSOLUTE EOSINOPHILS (test c ode = 1040) 0.15 K/UL ABSOLUTE BASOPHILS (test cod e = 1069) 0.03 K/UL ABS IMMATURE GRANULOCYTES (t est code = 1020) 0.08 K/UL ABS NUCLEATED RBCS (test cod e = 53134) 0.00 K/UL Peter LoftonDRUG ABUSE SCREEN 10 REFLEX [id number] 00:00:00* Test Item Value Reference Range Interpretation Comme nts AMPHETAMINES (test code = 3201) NEGATIVE BARBITURATES (test code = 3202) NEGATIVE BENZODIAZEPINES (test code = 3203) NEGATIVE CANNABINOIDS (test code = 3204) NEGATIVE COCAINE METABOLITE (test cod e = 3205) NEGATIVE OPIATES (test code = 3209) NEGATIVE OXYCODONE (test code = 12007) NEGATIVE PHENCYCLIDINE (test code = 3210) NEGATIVE METHADONE (test code = 3207) NEGATIVE BUPRENORPHINE (test code = 49657) NEGATIVE SOURCE (test code = 894985) URINE Peter LoftonHIV 1/2 4TH GEN, RFLX [id number] 00:00:00* Test Item Value Reference Range Interpretation Comme nts HIV 1/2 4TH GEN, RFLX CONF ( test code = 3514) NON-REACTIVE Peter [id number] 00:00:00* Test Item Value Reference Range Interpretation Comme nts RPR RESULT (test code = 3501) NON-REACTIVE RPR TITER (test code = 3500) NOT INDIC. TITER Peter LoftonCBC W/AUTO [id number] 00:00:00* Test Item Value Reference Range Interpretation Comme nts WBC (test code = 1001) 9.6 K/UL RBC (test code = 1002) 3.97 M/UL HEMOGLOBIN (test code = 1003) 9.9 G/DL HEMATOCRIT (test code = 1004) 32.1 % MCV (test code = 1005) 80.9 fL MCH (test code = 1006) 24.9 PG MCHC (test code = 1007) 30.8 G/DL RDW (test code = 1038) 14.6 % NEUTROPHILS (test code = 1008) 72.1 % LYMPHOCYTES (test code = 1010) 21.2 % MONOCYTES (test code = 1011) 4.0 % EOSINOPHILS (test code = 1012) 1.6 % BASOPHILS (test code = 1013) 0.3 % IMMATURE GRANULOCYTES (test code = 1036) 0.8 % NUCLEATED RBCS (test code = 1065) 0.0 /100WBC'S PLATELET COUNT (test code = 1015) 240 K/UL ABSOLUTE NEUTROPHILS (test c ode = 1066) 6.90 K/UL ABSOLUTE LYMPHOCYTES (test c ode = 1067) 2.03 K/UL ABSOLUTE MONOCYTES (test cod e = 1068) 0.38 K/UL ABSOLUTE EOSINOPHILS (test c ode = 1040) 0.15 K/UL ABSOLUTE BASOPHILS (test cod e = 1069) 0.03 K/UL ABS IMMATURE GRANULOCYTES (t est code = 1020) 0.08 K/UL ABS NUCLEATED RBCS (test cod e = 74488) 0.00 K/UL Peter LoftonDRUG ABUSE SCREEN 10 REFLEX [id number] 00:00:00* Test Item Value Reference Range Interpretation Comme nts AMPHETAMINES (test code = 3201) NEGATIVE BARBITURATES (test code = 3202) NEGATIVE BENZODIAZEPINES (test code = 3203) NEGATIVE CANNABINOIDS (test code = 3204) NEGATIVE COCAINE METABOLITE (test cod e = 3205) NEGATIVE OPIATES (test code = 3209) NEGATIVE OXYCODONE (test code = 14737) NEGATIVE PHENCYCLIDINE (test code = 3210) NEGATIVE METHADONE (test code = 3207) NEGATIVE BUPRENORPHINE (test code = 80484) NEGATIVE SOURCE (test code = 805110) URINE Peter LoftonHIV 1/2 4TH GEN, RFLX [id number] 00:00:00* Test Item Value Reference Range Interpretation Comme nts HIV 1/2 4TH GEN, RFLX CONF ( test code = 3514) NON-REACTIVE Peter [id number] 00:00:00* Test Item Value Reference Range Interpretation Comme nts RPR RESULT (test code = 3501) NON-REACTIVE RPR TITER (test code = 3500) NOT INDIC. TITER Peter LoftonCBC W/AUTO [id number] 00:00:00* Test Item Value Reference Range Interpretation Comme nts WBC (test code = 1001) 9.6 K/UL RBC (test code = 1002) 3.97 M/UL HEMOGLOBIN (test code = 1003) 9.9 G/DL HEMATOCRIT (test code = 1004) 32.1 % MCV (test code = 1005) 80.9 fL MCH (test code = 1006) 24.9 PG MCHC (test code = 1007) 30.8 G/DL RDW (test code = 1038) 14.6 % NEUTROPHILS (test code = 1008) 72.1 % LYMPHOCYTES (test code = 1010) 21.2 % MONOCYTES (test code = 1011) 4.0 % EOSINOPHILS (test code = 1012) 1.6 % BASOPHILS (test code = 1013) 0.3 % IMMATURE GRANULOCYTES (test code = 1036) 0.8 % NUCLEATED RBCS (test code = 1065) 0.0 /100WBC'S PLATELET COUNT (test code = 1015) 240 K/UL ABSOLUTE NEUTROPHILS (test c ode = 1066) 6.90 K/UL ABSOLUTE LYMPHOCYTES (test c ode = 1067) 2.03 K/UL ABSOLUTE MONOCYTES (test cod e = 1068) 0.38 K/UL ABSOLUTE EOSINOPHILS (test c ode = 1040) 0.15 K/UL ABSOLUTE BASOPHILS (test cod e = 1069) 0.03 K/UL ABS IMMATURE GRANULOCYTES (t est code = 1020) 0.08 K/UL ABS NUCLEATED RBCS (test cod e = 50925) 0.00 K/UL Peter LoftonDRUG ABUSE SCREEN 10 REFLEX [id number] 00:00:00* Test Item Value Reference Range Interpretation Comme nts AMPHETAMINES (test code = 3201) NEGATIVE BARBITURATES (test code = 3202) NEGATIVE BENZODIAZEPINES (test code = 3203) NEGATIVE CANNABINOIDS (test code = 3204) NEGATIVE COCAINE METABOLITE (test cod e = 3205) NEGATIVE OPIATES (test code = 3209) NEGATIVE OXYCODONE (test code = 68234) NEGATIVE PHENCYCLIDINE (test code = 3210) NEGATIVE METHADONE (test code = 3207) NEGATIVE BUPRENORPHINE (test code = 93114) NEGATIVE SOURCE (test code = 554749) URINE Peter LoftonHIV 1/2 4TH GEN, RFLX [id number] 00:00:00* Test Item Value Reference Range Interpretation Comme nts HIV 1/2 4TH GEN, RFLX CONF ( test code = 3514) NON-REACTIVE Peter [id number] 00:00:00* Test Item Value Reference Range Interpretation Comme nts RPR RESULT (test code = 3501) NON-REACTIVE RPR TITER (test code = 3500) NOT INDIC. TITER Peter LoftonCBC W/AUTO [id number] 00:00:00* Test Item Value Reference Range Interpretation Comme nts WBC (test code = 1001) 9.6 K/UL RBC (test code = 1002) 3.97 M/UL HEMOGLOBIN (test code = 1003) 9.9 G/DL HEMATOCRIT (test code = 1004) 32.1 % MCV (test code = 1005) 80.9 fL MCH (test code = 1006) 24.9 PG MCHC (test code = 1007) 30.8 G/DL RDW (test code = 1038) 14.6 % NEUTROPHILS (test code = 1008) 72.1 % LYMPHOCYTES (test code = 1010) 21.2 % MONOCYTES (test code = 1011) 4.0 % EOSINOPHILS (test code = 1012) 1.6 % BASOPHILS (test code = 1013) 0.3 % IMMATURE GRANULOCYTES (test code = 1036) 0.8 % NUCLEATED RBCS (test code = 1065) 0.0 /100WBC'S PLATELET COUNT (test code = 1015) 240 K/UL ABSOLUTE NEUTROPHILS (test c ode = 1066) 6.90 K/UL ABSOLUTE LYMPHOCYTES (test c ode = 1067) 2.03 K/UL ABSOLUTE MONOCYTES (test cod e = 1068) 0.38 K/UL ABSOLUTE EOSINOPHILS (test c ode = 1040) 0.15 K/UL ABSOLUTE BASOPHILS (test cod e = 1069) 0.03 K/UL ABS IMMATURE GRANULOCYTES (t est code = 1020) 0.08 K/UL ABS NUCLEATED RBCS (test cod e = 58460) 0.00 K/UL Peter Ugarte, [id number] 00:00:00* Test Item Value Reference Range Interpretation Comme nts CULTURE, URINE (test code = 21595) SPECIMEN NUMBER: [id number] Peter Ugarte, [id number] 00:00:00* Test Item Value Reference Range Interpretation Comme nts CULTURE, URINE (test code = 22253) SPECIMEN NUMBER: [id number] Peter Ugarte, [id number] 00:00:00* Test Item Value Reference Range Interpretation Comme nts CULTURE, URINE (test code = 89185) SPECIMEN NUMBER: [id number] Peter Ugarte, [id number] 00:00:00* Test Item Value Reference Range Interpretation Comme nts CULTURE, URINE (test code = 79527) SPECIMEN NUMBER: [id number] Peter Ugarte, [id number] 00:00:00* Test Item Value Reference Range Interpretation Comme nts CULTURE, URINE (test code = 98856) SPECIMEN NUMBER: [id number] Peter Ugarte, [id number] 00:00:00* Test Item Value Reference Range Interpretation Comme nts CULTURE, URINE (test code = 40161) SPECIMEN NUMBER: [id number] Peter HurdLTURE, [id number] 00:00:00* Test Item Value Reference Range Interpretation Comme nts CULTURE, URINE (test code = 92479) SPECIMEN NUMBER: [id number] Peter HurdLTURE, [id number] 00:00:00* Test Item Value Reference Range Interpretation Comme nts CULTURE, URINE (test code = 24166) SPECIMEN NUMBER: [id number] Peter HurdLTURE, [id number] 00:00:00* Test Item Value Reference Range Interpretation Comme nts CULTURE, URINE (test code = 19041) SPECIMEN NUMBER: [id number] Peter HurdLTBRYAN, [id number] 00:00:00* Test Item Value Reference Range Interpretation Comme nts CULTURE, URINE (test code = 51449) SPECIMEN NUMBER: [id number] Peter HurdLTBRYAN, [id number] 00:00:00* Test Item Value Reference Range Interpretation Comme nts CULTURE, URINE (test code = 68546) SPECIMEN NUMBER: [id number] Peter HurdLTBRYAN, [id number] 00:00:00* Test Item Value Reference Range Interpretation Comme nts CULTURE, URINE (test code = 34469) SPECIMEN NUMBER: [id number] Peter HurdLTBRYAN, [id number] 00:00:00* Test Item Value Reference Range Interpretation Comme nts CULTURE, URINE (test code = 01141) SPECIMEN NUMBER: [id number] Peter Romero AustinVAGINAL PATHOGENS DNA [id number] 00:00:00* Test Item Value Reference Range Interpretation Comme nts GEORGETTE SPECIES (test code = ) NEGATIVE G. VAGINALIS (test code = 97274) POSITIVE T. VAGINALIS (test code = ) NEGATIVE Peter Romero AustinVAGINAL PATHOGENS DNA [id number] 00:00:00* Test Item Value Reference Range Interpretation Comme nts GEORGETTE SPECIES (test code = 21721) NEGATIVE G. VAGINALIS (test code = 11058) POSITIVE T. VAGINALIS (test code = 65271) NEGATIVE Peter Romero AustinVAGINAL PATHOGENS DNA [id number] 00:00:00* Test Item Value Reference Range Interpretation Comme nts GEORGETTE SPECIES (test code = ) NEGATIVE G. VAGINALIS (test code = 18150) POSITIVE T. VAGINALIS (test code = 30212) NEGATIVE Peter Romero AustinVAGINAL PATHOGENS DNA [id number] 00:00:00* Test Item Value Reference Range Interpretation Comme nts GEORGETTE SPECIES (test code = 25744) NEGATIVE G. VAGINALIS (test code = 89732) POSITIVE T. VAGINALIS (test code = 06205) NEGATIVE Peter F AustinVAGINAL PATHOGENS DNA [id number] 00:00:00* Test Item Value Reference Range Interpretation Comme nts GEORGETTE SPECIES (test code = 74412) NEGATIVE G. VAGINALIS (test code = 91552) POSITIVE T. VAGINALIS (test code = 09078) NEGATIVE Peter F AustinVAGINAL PATHOGENS DNA [id number] 00:00:00* Test Item Value Reference Range Interpretation Comme nts GEORGETTE SPECIES (test code = 10463) NEGATIVE G. VAGINALIS (test code = 63923) POSITIVE T. VAGINALIS (test code = 42557) NEGATIVE Peter F AustinVAGINAL PATHOGENS DNA [id number] 00:00:00* Test Item Value Reference Range Interpretation Comme nts GEORGETTE SPECIES (test code = 27312) NEGATIVE G. VAGINALIS (test code = 38680) POSITIVE T. VAGINALIS (test code = 80867) NEGATIVE Peter F AustinVAGINAL PATHOGENS DNA [id number] 00:00:00* Test Item Value Reference Range Interpretation Comme nts GEORGETTE SPECIES (test code = 02184) NEGATIVE G. VAGINALIS (test code = 14793) POSITIVE T. VAGINALIS (test code = 44688) NEGATIVE Peter F AustinVAGINAL PATHOGENS DNA [id number] 00:00:00* Test Item Value Reference Range Interpretation Comme nts GEORGETTE SPECIES (test code = 19962) NEGATIVE G. VAGINALIS (test code = 68232) POSITIVE T. VAGINALIS (test code = 86389) NEGATIVE Peter F AustinVAGINAL PATHOGENS DNA [id number] 00:00:00* Test Item Value Reference Range Interpretation Comme nts GEORGETTE SPECIES (test code = 18039) NEGATIVE G. VAGINALIS (test code = 32456) POSITIVE T. VAGINALIS (test code = ) NEGATIVE Peter Romero AustinVAGINAL PATHOGENS DNA [id number] 00:00:00* Test Item Value Reference Range Interpretation Comme nts GEORGETTE SPECIES (test code = ) NEGATIVE G. VAGINALIS (test code = 35269) POSITIVE T. VAGINALIS (test code = ) NEGATIVE Peter Romero AustinVAGINAL PATHOGENS DNA [id number] 00:00:00* Test Item Value Reference Range Interpretation Comme nts GEORGETTE SPECIES (test code = ) NEGATIVE G. VAGINALIS (test code = 37663) POSITIVE T. VAGINALIS (test code = 82969) NEGATIVE Peter Romero AustinVAGINAL PATHOGENS DNA [id number] 00:00:00* Test Item Value Reference Range Interpretation Comme nts GEORGETTE SPECIES (test code = ) NEGATIVE G. VAGINALIS (test code = ) POSITIVE T. VAGINALIS (test code = ) NEGATIVE Peter Romero AustinCREATININE, 24 HOUR [id number] 00:00:00* Test Item Value Reference Range Interpretation Comme nts CREATININE, URINE, CONC. (te st code = 2071) 34.7 MG/DL CREATININE, URINE, 24 HR (te st code = 2109) 1.0 GM/24HOURS TOTAL URINE VOLUME (test cod e = 2055) 3000 ML Peter F AustinPROTEIN, 24 HOUR [id number] 00:00:00* Test Item Value Reference Range Interpretation Comme nts PROTEIN, URINE, CONC. (test code = 2103) 15 MG/DL PROTEIN, URINE 24 HR (test code = 2059) 450 MG/24HOURS TOTAL URINE VOLUME (test cod e = 2055) 3000 ML Peter F AustinCREATININE, 24 HOUR [id number] 00:00:00* Test Item Value Reference Range Interpretation Comme nts CREATININE, URINE, CONC. (te st code = 2071) 34.7 MG/DL CREATININE, URINE, 24 HR (te st code = 2109) 1.0 GM/24HOURS TOTAL URINE VOLUME (test cod e = 2055) 3000 ML Peter F AustinPROTEIN, 24 HOUR [id number] 00:00:00* Test Item Value Reference Range Interpretation Comme nts PROTEIN, URINE, CONC. (test code = 2103) 15 MG/DL PROTEIN, URINE 24 HR (test code = 2059) 450 MG/24HOURS TOTAL URINE VOLUME (test cod e = 2055) 3000 ML Peter F AustinCREATININE, 24 HOUR [id number] 00:00:00* Test Item Value Reference Range Interpretation Comme nts CREATININE, URINE, CONC. (te st code = 2071) 34.7 MG/DL CREATININE, URINE, 24 HR (te st code = 2109) 1.0 GM/24HOURS TOTAL URINE VOLUME (test cod e = 2055) 3000 ML Peter F AustinPROTEIN, 24 HOUR [id number] 00:00:00* Test Item Value Reference Range Interpretation Comme nts PROTEIN, URINE, CONC. (test code = 2103) 15 MG/DL PROTEIN, URINE 24 HR (test code = 2059) 450 MG/24HOURS TOTAL URINE VOLUME (test cod e = 2055) 3000 ML Peter F AustinCREATININE, 24 HOUR [id number] 00:00:00* Test Item Value Reference Range Interpretation Comme nts CREATININE, URINE, CONC. (te st code = 2071) 34.7 MG/DL CREATININE, URINE, 24 HR (te st code = 2109) 1.0 GM/24HOURS TOTAL URINE VOLUME (test cod e = 2055) 3000 ML Peter F AustinPROTEIN, 24 HOUR [id number] 00:00:00* Test Item Value Reference Range Interpretation Comme nts PROTEIN, URINE, CONC. (test code = 2103) 15 MG/DL PROTEIN, URINE 24 HR (test code = 2059) 450 MG/24HOURS TOTAL URINE VOLUME (test cod e = 2055) 3000 ML Peter F AustinCREATININE, 24 HOUR [id number] 00:00:00* Test Item Value Reference Range Interpretation Comme nts CREATININE, URINE, CONC. (te st code = 2071) 34.7 MG/DL CREATININE, URINE, 24 HR (te st code = 2109) 1.0 GM/24HOURS TOTAL URINE VOLUME (test cod e = 2055) 3000 ML Peter F AustinPROTEIN, 24 HOUR [id number] 00:00:00* Test Item Value Reference Range Interpretation Comme nts PROTEIN, URINE, CONC. (test code = 2103) 15 MG/DL PROTEIN, URINE 24 HR (test code = 2059) 450 MG/24HOURS TOTAL URINE VOLUME (test cod e = 2055) 3000 ML Peter F AustinCREATININE, 24 HOUR [id number] 00:00:00* Test Item Value Reference Range Interpretation Comme nts CREATININE, URINE, CONC. (te st code = 2071) 34.7 MG/DL CREATININE, URINE, 24 HR (te st code = 2109) 1.0 GM/24HOURS TOTAL URINE VOLUME (test cod e = 2055) 3000 ML Peter F AustinPROTEIN, 24 HOUR [id number] 00:00:00* Test Item Value Reference Range Interpretation Comme nts PROTEIN, URINE, CONC. (test code = 2103) 15 MG/DL PROTEIN, URINE 24 HR (test code = 2059) 450 MG/24HOURS TOTAL URINE VOLUME (test cod e = 2055) 3000 ML Peter F AustinCREATININE, 24 HOUR [id number] 00:00:00* Test Item Value Reference Range Interpretation Comme nts CREATININE, URINE, CONC. (te st code = 2071) 34.7 MG/DL CREATININE, URINE, 24 HR (te st code = 2109) 1.0 GM/24HOURS TOTAL URINE VOLUME (test cod e = 2055) 3000 ML Peter F AustinPROTEIN, 24 HOUR [id number] 00:00:00* Test Item Value Reference Range Interpretation Comme nts PROTEIN, URINE, CONC. (test code = 2103) 15 MG/DL PROTEIN, URINE 24 HR (test code = 2059) 450 MG/24HOURS TOTAL URINE VOLUME (test cod e = 2055) 3000 ML Peter F AustinCREATININE, 24 HOUR [id number] 00:00:00* Test Item Value Reference Range Interpretation Comme nts CREATININE, URINE, CONC. (te st code = 2071) 34.7 MG/DL CREATININE, URINE, 24 HR (te st code = 2109) 1.0 GM/24HOURS TOTAL URINE VOLUME (test cod e = 2055) 3000 ML Peter F AustinPROTEIN, 24 HOUR [id number] 00:00:00* Test Item Value Reference Range Interpretation Comme nts PROTEIN, URINE, CONC. (test code = 2103) 15 MG/DL PROTEIN, URINE 24 HR (test code = 2059) 450 MG/24HOURS TOTAL URINE VOLUME (test cod e = 2055) 3000 ML Peter F AustinCREATININE, 24 HOUR [id number] 00:00:00* Test Item Value Reference Range Interpretation Comme nts CREATININE, URINE, CONC. (te st code = 2071) 34.7 MG/DL CREATININE, URINE, 24 HR (te st code = 2109) 1.0 GM/24HOURS TOTAL URINE VOLUME (test cod e = 2055) 3000 ML Peter F AustinPROTEIN, 24 HOUR [id number] 00:00:00* Test Item Value Reference Range Interpretation Comme nts PROTEIN, URINE, CONC. (test code = 2103) 15 MG/DL PROTEIN, URINE 24 HR (test code = 2059) 450 MG/24HOURS TOTAL URINE VOLUME (test cod e = 2055) 3000 ML Peter F AustinCREATININE, 24 HOUR [id number] 00:00:00* Test Item Value Reference Range Interpretation Comme nts CREATININE, URINE, CONC. (te st code = 2071) 34.7 MG/DL CREATININE, URINE, 24 HR (te st code = 2109) 1.0 GM/24HOURS TOTAL URINE VOLUME (test cod e = 2055) 3000 ML Peter F AustinPROTEIN, 24 HOUR [id number] 00:00:00* Test Item Value Reference Range Interpretation Comme nts PROTEIN, URINE, CONC. (test code = 2103) 15 MG/DL PROTEIN, URINE 24 HR (test code = 2059) 450 MG/24HOURS TOTAL URINE VOLUME (test cod e = 2055) 3000 ML Peter F AustinCREATININE, 24 HOUR [id number] 00:00:00* Test Item Value Reference Range Interpretation Comme nts CREATININE, URINE, CONC. (te st code = 2071) 34.7 MG/DL CREATININE, URINE, 24 HR (te st code = 2109) 1.0 GM/24HOURS TOTAL URINE VOLUME (test cod e = 2055) 3000 ML Peter F AustinPROTEIN, 24 HOUR [id number] 00:00:00* Test Item Value Reference Range Interpretation Comme nts PROTEIN, URINE, CONC. (test code = 2103) 15 MG/DL PROTEIN, URINE 24 HR (test code = 2059) 450 MG/24HOURS TOTAL URINE VOLUME (test cod e = 2055) 3000 ML Peter F AustinCREATININE, 24 HOUR [id number] 00:00:00* Test Item Value Reference Range Interpretation Comme nts CREATININE, URINE, CONC. (te st code = 2071) 34.7 MG/DL CREATININE, URINE, 24 HR (te st code = 2109) 1.0 GM/24HOURS TOTAL URINE VOLUME (test cod e = 2055) 3000 ML Peter Romero AustinPROTEIN, 24 HOUR [id number] 00:00:00* Test Item Value Reference Range Interpretation Comme nts PROTEIN, URINE, CONC. (test code = 2103) 15 MG/DL PROTEIN, URINE 24 HR (test code = 2059) 450 MG/24HOURS TOTAL URINE VOLUME (test cod e = 2055) 3000 ML Peter Romero AustinCREATININE, 24 HOUR [id number] 00:00:00* Test Item Value Reference Range Interpretation Comme nts CREATININE, URINE, CONC. (te st code = 2071) 34.7 MG/DL CREATININE, URINE, 24 HR (te st code = 2109) 1.0 GM/24HOURS TOTAL URINE VOLUME (test cod e = 2055) 3000 ML Peter Romero AustinPROTEIN, 24 HOUR [id number] 00:00:00* Test Item Value Reference Range Interpretation Comme nts PROTEIN, URINE, CONC. (test code = 2103) 15 MG/DL PROTEIN, URINE 24 HR (test code = 2059) 450 MG/24HOURS TOTAL URINE VOLUME (test cod e = 2055) 3000 ML Peter Romero AustinCREATININE, 24 HOUR [id number] 00:00:00* Test Item Value Reference Range Interpretation Comme nts CREATININE, URINE, CONC. (te st code = 2071) 34.7 MG/DL CREATININE, URINE, 24 HR (te st code = 2109) 1.0 GM/24HOURS TOTAL URINE VOLUME (test cod e = 2055) 3000 ML Peter Romero AustinPROTEIN, 24 HOUR [id number] 00:00:00* Test Item Value Reference Range Interpretation Comme nts PROTEIN, URINE, CONC. (test code = 2103) 15 MG/DL PROTEIN, URINE 24 HR (test code = 2059) 450 MG/24HOURS TOTAL URINE VOLUME (test cod e = 2055) 3000 ML Peter Romero AustinMATERNAL AFP FOR NTD [id number] 08:28:36* Test Item Value Reference Range Interpretation Comme nts INTERPRETATION (test code = 264383) SCREEN NEGATIVE Neural tube defect risk (test code = 74839) 1:50332 Neural tube defect interpretation (test code = 95372) (NOTE) --- NORMAL - NOT AT INCREASED [...] 2657) 184 LBS INITIAL/REPEAT (test code = 739743) INITIAL FAMILY HISTORY OF NTD (test code = 304880) NO INSULIN DEP. DIABETIC (test code = 2659) NO RACE (test code = 2658) SMOKER? (test code = 603740) NO NUMBER OF GESTATIONS (test code = 13014) 1 GESTATIONAL AGE (test code = 2656) 18.7 WEEKS DETERMINED BY: (test code = 2654) US DATE OF SONOGRAM (test code = 63883) 10/19/2023 GESTATIONAL AGE AT SONO (test code = 2653) 10.6 WEEKS ADJUST AFP M.O.M. (test code = 2661) 0.76 M.O.M. AFP (test code = 15731) 33.1 NG/ML UNLESS OTHERWISE INDICATED, ALL TESTING PERFORMED AT [facility] [address] [place] [address] CREDIT INTERVIEWER: GOPAL BACON M.D. CLIA NUMBER [id number] [facility] [place]. [id number] MATERNAL AFP FOR NTD [id number] 00:00:00* Test Item Value Reference Range Interpretation Comme nts INTERPRETATION (test code = 244587) SCREEN NEGATIVE Neural tube defect risk (raghavendra t code = 38572) 1:33166 Neural tube defect interpretation (test code = 29376) (NOTE) DATE OF (test code = 2660) 1990 MATERNAL WEIGHT (test code = 2657) 184 LBS INITIAL/REPEAT (test code = 594570) INITIAL FAMILY HISTORY OF NTD (test code = 327172) NO INSULIN DEP. DIABETIC (test code = 2659) NO RACE (test code = 2658) SMOKER? (test code = 880480) NO NUMBER OF GESTATIONS (test code = 67993) 1 GESTATIONAL AGE (test code = 2656) 18.7 WEEKS DETERMINED BY: (test code = 2654) US DATE OF SONOGRAM (test code = 99492) 10/19/2023 GESTATIONAL AGE AT SONO (raghavendra t code = 2653) 10.6 WEEKS ADJUST AFP M.O.M. (test code = 2661) 0.76 M.O.M. AFP (test code = 11603) 33.1 NG/ML Peter F AustinMATERNAL AFP FOR NTD [id number] 00:00:00* Test Item Value Reference Range Interpretation Comme nts INTERPRETATION (test code = 552695) SCREEN NEGATIVE Neural tube defect risk (raghavendra t code = 86888) 1:28187 Neural tube defect interpretation (test code = 90307) (NOTE) DATE OF (test code = 2660) 1990 MATERNAL WEIGHT (test code = 2657) 184 LBS INITIAL/REPEAT (test code = 943545) INITIAL FAMILY HISTORY OF NTD (test code = 397036) NO INSULIN DEP. DIABETIC (test code = 2659) NO RACE (test code = 2658) SMOKER? (test code = 118424) NO NUMBER OF GESTATIONS (test code = 51968) 1 GESTATIONAL AGE (test code = 2656) 18.7 WEEKS DETERMINED BY: (test code = 2654) US DATE OF SONOGRAM (test code = 27857) 10/19/2023 GESTATIONAL AGE AT SONO (raghavendra t code = 2653) 10.6 WEEKS ADJUST AFP M.O.M. (test code = 2661) 0.76 M.O.M. AFP (test code = 09740) 33.1 NG/ML Peter F AustinMATERNAL AFP FOR NTD [id number] 00:00:00* Test Item Value Reference Range Interpretation Comme nts INTERPRETATION (test code = 886168) SCREEN NEGATIVE Neural tube defect risk (raghavendra t code = 61063) 1:38482 Neural tube defect interpretation (test code = 72412) (NOTE) DATE OF (test code = 2660) 1990 MATERNAL WEIGHT (test code = 2657) 184 LBS INITIAL/REPEAT (test code = 301330) INITIAL FAMILY HISTORY OF NTD (test code = 935527) NO INSULIN DEP. DIABETIC (test code = 2659) NO RACE (test code = 2658) SMOKER? (test code = 175709) NO NUMBER OF GESTATIONS (test code = 96061) 1 GESTATIONAL AGE (test code = 2656) 18.7 WEEKS DETERMINED BY: (test code = 2654) US DATE OF SONOGRAM (test code = 10462) 10/19/2023 GESTATIONAL AGE AT SONO (raghavendra t code = 2653) 10.6 WEEKS ADJUST AFP M.O.M. (test code = 2661) 0.76 M.O.M. AFP (test code = 94700) 33.1 NG/ML Peter F AustinMATERNAL AFP FOR NTD [id number] 00:00:00* Test Item Value Reference Range Interpretation Comme nts INTERPRETATION (test code = 663315) SCREEN NEGATIVE Neural tube defect risk (raghavendra t code = 47464) 1:28063 Neural tube defect interpretation (test code = 29535) (NOTE) DATE OF (test code = 2660) 1990 MATERNAL WEIGHT (test code = 2657) 184 LBS INITIAL/REPEAT (test code = 592382) INITIAL FAMILY HISTORY OF NTD (test code = 496017) NO INSULIN DEP. DIABETIC (test code = 2659) NO RACE (test code = 2658) SMOKER? (test code = 369347) NO NUMBER OF GESTATIONS (test code = 44196) 1 GESTATIONAL AGE (test code = 2656) 18.7 WEEKS DETERMINED BY: (test code = 2654) US DATE OF SONOGRAM (test code = 98179) 10/19/2023 GESTATIONAL AGE AT SONO (raghavendra t code = 2653) 10.6 WEEKS ADJUST AFP M.O.M. (test code = 2661) 0.76 M.O.M. AFP (test code = 51262) 33.1 NG/ML Peter F AustinMATERNAL AFP FOR NTD [id number] 00:00:00* Test Item Value Reference Range Interpretation Comme nts INTERPRETATION (test code = 108297) SCREEN NEGATIVE Neural tube defect risk (raghavendra t code = 12274) 1:96585 Neural tube defect interpretation (test code = 82254) (NOTE) DATE OF (test code = 2660) 1990 MATERNAL WEIGHT (test code = 2657) 184 LBS INITIAL/REPEAT (test code = 867496) INITIAL FAMILY HISTORY OF NTD (test code = 241527) NO INSULIN DEP. DIABETIC (test code = 2659) NO RACE (test code = 2658) SMOKER? (test code = 933822) NO NUMBER OF GESTATIONS (test code = 30484) 1 GESTATIONAL AGE (test code = 2656) 18.7 WEEKS DETERMINED BY: (test code = 2654) US DATE OF SONOGRAM (test code = 39088) 10/19/2023 GESTATIONAL AGE AT SONO (raghavendra t code = 2653) 10.6 WEEKS ADJUST AFP M.O.M. (test code = 2661) 0.76 M.O.M. AFP (test code = 56712) 33.1 NG/ML Peter F AustinMATERNAL AFP FOR NTD [id number] 00:00:00* Test Item Value Reference Range Interpretation Comme nts INTERPRETATION (test code = 192439) SCREEN NEGATIVE Neural tube defect risk (raghavendra t code = 44814) 1:65382 Neural tube defect interpretation (test code = 51134) (NOTE) DATE OF (test code = 2660) 1990 MATERNAL WEIGHT (test code = 2657) 184 LBS INITIAL/REPEAT (test code = 385649) INITIAL FAMILY HISTORY OF NTD (test code = 461921) NO INSULIN DEP. DIABETIC (test code = 2659) NO RACE (test code = 2658) SMOKER? (test code = 045465) NO NUMBER OF GESTATIONS (test code = 39619) 1 GESTATIONAL AGE (test code = 2656) 18.7 WEEKS DETERMINED BY: (test code = 2654) US DATE OF SONOGRAM (test code = 53438) 10/19/2023 GESTATIONAL AGE AT SONO (raghavendra t code = 2653) 10.6 WEEKS ADJUST AFP M.O.M. (test code = 2661) 0.76 M.O.M. AFP (test code = 84179) 33.1 NG/ML Peter F AustinMATERNAL AFP FOR NTD [id number] 00:00:00* Test Item Value Reference Range Interpretation Comme nts INTERPRETATION (test code = 051500) SCREEN NEGATIVE Neural tube defect risk (raghavendra t code = 10979) 1:99108 Neural tube defect interpretation (test code = 50776) (NOTE) DATE OF (test code = 2660) 1990 MATERNAL WEIGHT (test code = 2657) 184 LBS INITIAL/REPEAT (test code = 070708) INITIAL FAMILY HISTORY OF NTD (test code = 839601) NO INSULIN DEP. DIABETIC (test code = 2659) NO RACE (test code = 2658) SMOKER? (test code = 653534) NO NUMBER OF GESTATIONS (test code = 21076) 1 GESTATIONAL AGE (test code = 2656) 18.7 WEEKS DETERMINED BY: (test code = 2654) US DATE OF SONOGRAM (test code = 12734) 10/19/2023 GESTATIONAL AGE AT SONO (raghavendra t code = 2653) 10.6 WEEKS ADJUST AFP M.O.M. (test code = 2661) 0.76 M.O.M. AFP (test code = 76230) 33.1 NG/ML Peter Romero AustinMATERNAL AFP FOR NTD [id number] 00:00:00* Test Item Value Reference Range Interpretation Comme nts INTERPRETATION (test code = 669327) SCREEN NEGATIVE Neural tube defect risk (raghavendra t code = 70836) 1:61517 Neural tube defect interpretation (test code = 50895) (NOTE) DATE OF (test code = 2660) 1990 MATERNAL WEIGHT (test code = 2657) 184 LBS INITIAL/REPEAT (test code = 697529) INITIAL FAMILY HISTORY OF NTD (test code = 009507) NO INSULIN DEP. DIABETIC (test code = 2659) NO RACE (test code = 2658) SMOKER? (test code = 284019) NO NUMBER OF GESTATIONS (test code = 34732) 1 GESTATIONAL AGE (test code = 2656) 18.7 WEEKS DETERMINED BY: (test code = 2654) US DATE OF SONOGRAM (test code = 93210) 10/19/2023 GESTATIONAL AGE AT SONO (raghavendra t code = 2653) 10.6 WEEKS ADJUST AFP M.O.M. (test code = 2661) 0.76 M.O.M. AFP (test code = 56359) 33.1 NG/ML Peter F AustinMATERNAL AFP FOR NTD [id number] 00:00:00* Test Item Value Reference Range Interpretation Comme nts INTERPRETATION (test code = 653294) SCREEN NEGATIVE Neural tube defect risk (raghavendra t code = 68587) 1:34114 Neural tube defect interpretation (test code = 72151) (NOTE) DATE OF (test code = 2660) 1990 MATERNAL WEIGHT (test code = 2657) 184 LBS INITIAL/REPEAT (test code = 601876) INITIAL FAMILY HISTORY OF NTD (test code = 123181) NO INSULIN DEP. DIABETIC (test code = 2659) NO RACE (test code = 2658) SMOKER? (test code = 854566) NO NUMBER OF GESTATIONS (test code = 31089) 1 GESTATIONAL AGE (test code = 2656) 18.7 WEEKS DETERMINED BY: (test code = 2654) US DATE OF SONOGRAM (test code = 11436) 10/19/2023 GESTATIONAL AGE AT SONO (raghavendra t code = 2653) 10.6 WEEKS ADJUST AFP M.O.M. (test code = 2661) 0.76 M.O.M. AFP (test code = 63222) 33.1 NG/ML Peter Romero AustinMATERNAL AFP FOR NTD [id number] 00:00:00* Test Item Value Reference Range Interpretation Comme nts INTERPRETATION (test code = 253288) SCREEN NEGATIVE Neural tube defect risk (raghavendra t code = 41747) 1:09406 Neural tube defect interpretation (test code = 14466) (NOTE) DATE OF (test code = 2660) 1990 MATERNAL WEIGHT (test code = 2657) 184 LBS INITIAL/REPEAT (test code = 356332) INITIAL FAMILY HISTORY OF NTD (test code = 095503) NO INSULIN DEP. DIABETIC (test code = 2659) NO RACE (test code = 2658) SMOKER? (test code = 249655) NO NUMBER OF GESTATIONS (test code = 79772) 1 GESTATIONAL AGE (test code = 2656) 18.7 WEEKS DETERMINED BY: (test code = 2654) US DATE OF SONOGRAM (test code = 63789) 10/19/[birth year]23 GESTATIONAL AGE AT SONO (raghavendra t code = 2653) 10.6 WEEKS ADJUST AFP M.O.M. (test code = 2661) 0.76 M.O.M. AFP (test code = 84444) 33.1 NG/ML Peter Romero AustinMATERNAL AFP FOR NTD [id number] 00:00:00* Test Item Value Reference Range Interpretation Comme nts INTERPRETATION (test code = 856418) SCREEN NEGATIVE Neural tube defect risk (raghavendra t code = 65368) 1:13552 Neural tube defect interpretation (test code = 01155) (NOTE) DATE OF (test code = 2660) 1990 MATERNAL WEIGHT (test code = 2657) 184 LBS INITIAL/REPEAT (test code = 975209) INITIAL FAMILY HISTORY OF NTD (test code = 401265) NO INSULIN DEP. DIABETIC (test code = 2659) NO RACE (test code = 2658) SMOKER? (test code = 201627) NO NUMBER OF GESTATIONS (test code = 35544) 1 GESTATIONAL AGE (test code = 2656) 18.7 WEEKS DETERMINED BY: (test code = 2654) DATE OF SONOGRAM (test code = 68577) 10/19/[birth year]23 GESTATIONAL AGE AT SONO (raghavendra t code = 2653) 10.6 WEEKS ADJUST AFP M.O.M. (test code = 2661) 0.76 M.O.M. AFP (test code = 08083) 33.1 NG/ML Peter Romero AustinMATERNAL AFP FOR NTD [id number] 00:00:00* Test Item Value Reference Range Interpretation Comme nts INTERPRETATION (test code = 705506) SCREEN NEGATIVE Neural tube defect risk (raghavendra t code = 12939) 1:82208 Neural tube defect interpretation (test code = 51413) (NOTE) DATE OF (test code = 2660) 1990 MATERNAL WEIGHT (test code = 2657) 184 LBS INITIAL/REPEAT (test code = 090434) INITIAL FAMILY HISTORY OF NTD (test code = 107762) NO INSULIN DEP. DIABETIC (test code = 2659) NO RACE (test code = 2658) SMOKER? (test code = 384830) NO NUMBER OF GESTATIONS (test code = 26056) 1 GESTATIONAL AGE (test code = 2656) 18.7 WEEKS DETERMINED BY: (test code = 2654) US DATE OF SONOGRAM (test code = 44836) 10/19/2023 GESTATIONAL AGE AT SONO (raghavendra t code = 2653) 10.6 WEEKS ADJUST AFP M.O.M. (test code = 2661) 0.76 M.O.M. AFP (test code = 26607) 33.1 NG/ML Peter F AustinMATERNAL AFP FOR NTD [id number] 00:00:00* Test Item Value Reference Range Interpretation Comme nts INTERPRETATION (test code = 901233) SCREEN NEGATIVE Neural tube defect risk (raghavendra t code = 58897) 1:22422 Neural tube defect interpretation (test code = 23200) (NOTE) DATE OF (test code = 2660) 1990 MATERNAL WEIGHT (test code = 2657) 184 LBS INITIAL/REPEAT (test code = 593796) INITIAL FAMILY HISTORY OF NTD (test code = 809029) NO INSULIN DEP. DIABETIC (test code = 2659) NO RACE (test code = 2658) SMOKER? (test code = 257891) NO NUMBER OF GESTATIONS (test code = 74600) 1 GESTATIONAL AGE (test code = 2656) 18.7 WEEKS DETERMINED BY: (test code = 2654) US DATE OF SONOGRAM (test code = 94811) 10/19/2023 GESTATIONAL AGE AT SONO (raghavendra t code = 2653) 10.6 WEEKS ADJUST AFP M.O.M. (test code = 2661) 0.76 M.O.M. AFP (test code = 04512) 33.1 NG/ML Peter Romero AustinMATERNAL AFP FOR NTD [id number] 00:00:00* Test Item Value Reference Range Interpretation Comme nts INTERPRETATION (test code = 847936) SCREEN NEGATIVE Neural tube defect risk (raghavendra t code = 21020) 1:77134 Neural tube defect interpretation (test code = 34927) (NOTE) DATE OF (test code = 2660) 1990 MATERNAL WEIGHT (test code = 2657) 184 LBS INITIAL/REPEAT (test code = 107752) INITIAL FAMILY HISTORY OF NTD (test code = 594621) NO INSULIN DEP. DIABETIC (test code = 2659) NO RACE (test code = 2658) SMOKER? (test code = 798153) NO NUMBER OF GESTATIONS (test code = 26142) 1 GESTATIONAL AGE (test code = 2656) 18.7 WEEKS DETERMINED BY: (test code = 2654) DATE OF SONOGRAM (test code = 90380) 10/19/2023 GESTATIONAL AGE AT SONO (raghavendra t code = 2653) 10.6 WEEKS ADJUST AFP M.O.M. (test code = 2661) 0.76 M.O.M. AFP (test code = 85495) 33.1 NG/ML Peter Ugarte, [id number] 08:32:29SPECIMEN NUMBER: [id number] CULTURE, URINE SPECIMEN NUMBER: [id number] SPECIMEN COMMENT: URINE SOURCE: URINE REPORT STATUS: FINAL FINAL REPORT: 12/17/2023 50-100,000 CFU/ML UROGENITAL JUNAID PRESENT NO COMMON PATHOGENSCULTURE, [id number] 00:00:00* Test Item Value Reference Range Interpretation Comme nts CULTURE, URINE (test code = 65105) SPECIMEN NUMBER: [id number] Peter Ugarte, [id number] 00:00:00* Test Item Value Reference Range Interpretation Comme nts CULTURE, URINE (test code = 61445) SPECIMEN NUMBER: [id number] Peter Ugarte, [id number] 00:00:00* Test Item Value Reference Range Interpretation Comme nts CULTURE, URINE (test code = 96629) SPECIMEN NUMBER: [id number] Peter Ugarte, [id number] 00:00:00* Test Item Value Reference Range Interpretation Comme nts CULTURE, URINE (test code = 56627) SPECIMEN NUMBER: [id number] Peter HurdLTBRYAN, [id number] 00:00:00* Test Item Value Reference Range Interpretation Comme nts CULTURE, URINE (test code = 69555) SPECIMEN NUMBER: [id number] Peter HurdLTBRYAN, [id number] 00:00:00* Test Item Value Reference Range Interpretation Comme nts CULTURE, URINE (test code = 05567) SPECIMEN NUMBER: [id number] Peter Ugarte, [id number] 00:00:00* Test Item Value Reference Range Interpretation Comme nts CULTURE, URINE (test code = 95695) SPECIMEN NUMBER: [id number] Peter HurdLTBRYAN, [id number] 00:00:00* Test Item Value Reference Range Interpretation Comme nts CULTURE, URINE (test code = 82974) SPECIMEN NUMBER: [id number] Peter HurdLTBRYAN, [id number] 00:00:00* Test Item Value Reference Range Interpretation Comme nts CULTURE, URINE (test code = 18345) SPECIMEN NUMBER: [id number] Peter HurdLTBRYAN, [id number] 00:00:00* Test Item Value Reference Range Interpretation Comme nts CULTURE, URINE (test code = 75464) SPECIMEN NUMBER: [id number] Peter HurdLTBRYAN [id number] 00:00:00* Test Item Value Reference Range Interpretation Comme nts CULTURE, URINE (test code = 38993) SPECIMEN NUMBER: [id number] Peter Ugarte, [id number] 00:00:00* Test Item Value Reference Range Interpretation Comme nts CULTURE, URINE (test code = 67469) SPECIMEN NUMBER: [id number] Peter HurdLTBRYAN, [id number] 00:00:00* Test Item Value Reference Range Interpretation Comme nts CULTURE, URINE (test code = 47238) SPECIMEN NUMBER: [id number] Peter HurdLTBRYAN, [id number] 00:00:00* Test Item Value Reference Range Interpretation Comme nts CULTURE, URINE (test code = 36971) SPECIMEN NUMBER: [id number] Peter LoftonNIPT W/ [id number] 00:00:00* Test Item Value Reference Range Interpretation Comme nts FINAL NIPS RESULT (test code = 92847) Low Risk PREDICTED SEX (test code = 87527) Male FRACTION (EST.) (test code = 77746) 10 % TRISOMY 21 (T21) (test code = 64336) Low probability T21 PRE-TEST PROB (test code = 26565) 1/351 T21 POST-TEST PROB (test cod e = 29727) <1/20,000 TRISOMY 18 (T18) (test code = 723961) Low probability T18 PRE-TEST PROB (test code = 593612) T18 POST-TEST PROB (test cod e = 926583) <1/20,000 TRISOMY 13 (T13) (test code = 470340) Low probability T13 PRE-TEST PROB (test code = 699579) T13 POST-TEST PROB (test cod e = 420219) <1/20,000 INTERPRETATION (test code = 611592) See Note IMPORTANT INFORMATION (test code = 038676) See Note RECOMMENDATION (test code = 681841) See Note GESTATION AT [place] (W) (test code = 232512) 12 weeks GESTATION AT [place] (D) (test code = 035125) 6 days DELIVERY DATE (EST.) (test code = 903309) 05/08/2024 PROVIDED HISTORY INFORMATION (test code = 354673) NUMBER OF FETUSES (test code = 190172) Prasad MATERNAL WEIGHT (test code = 477048) 174 LBS DATING METHOD (test code = 710598) LMP ESTIMATED DATE OF DELIVERY (GENET) (test code = 144057) 08/02/2023 IVF (test code = 224915) NO PATIENT CONSENT (test code = 207835) YES SEX (test code = 181820) See Note PDFE (test code = PDFReport) PDF Peter GreenwoodMani W/ [id number] 00:00:00* Test Item Value Reference Range Interpretation Comme nts FINAL NIPS RESULT (test code = 53973) Low Risk PREDICTED SEX (test code = 87139) Male FRACTION (EST.) (test code = 35334) 10 % TRISOMY 21 (T21) (test code = 84424) Low probability T21 PRE-TEST PROB (test code = 86101) 351 T21 POST-TEST PROB (test cod e = 71116) <1/20,000 TRISOMY 18 (T18) (test code = 410988) Low probability T18 PRE-TEST PROB (test code = 345143) T18 POST-TEST PROB (test cod e = 257775) <1/20,000 TRISOMY 13 (T13) (test code = 895610) Low probability T13 PRE-TEST PROB (test code = 940680) T13 POST-TEST PROB (test cod e = 732332) <1/20,000 INTERPRETATION (test code = 514157) See Note IMPORTANT INFORMATION (test code = 591083) See Note RECOMMENDATION (test code = 414990) See Note GESTATION AT [place] (W) (test code = 751040) 12 weeks GESTATION AT [place] (D) (test code = 262830) 6 days DELIVERY DATE (EST.) (test code = 136804) 05/08/2024 PROVIDED HISTORY INFORMATION (test code = 697919) NUMBER OF FETUSES (test code = 249533) Prasad MATERNAL WEIGHT (test code = 865206) 174 LBS DATING METHOD (test code = 173921) LMP ESTIMATED DATE OF DELIVERY (GENET) (test code = 282841) 08/02/2023 IVF (test code = 828309) NO PATIENT CONSENT (test code = 946883) YES SEX (test code = 637696) See Note PDFE (test code = PDFReport) PDF Peter LoftonTAINA W/ [id number] 00:00:00* Test Item Value Reference Range Interpretation Comme nts FINAL NIPS RESULT (test code = 37141) Low Risk PREDICTED SEX (test code = 20210) Male FRACTION (EST.) (test code = 10154) 10 % TRISOMY 21 (T21) (test code = 97467) Low probability T21 PRE-TEST PROB (test code = 25547) 1/351 T21 POST-TEST PROB (test cod e = 01407) <1/20,000 TRISOMY 18 (T18) (test code = 237984) Low probability T18 PRE-TEST PROB (test code = 544783) 08/28,227 T18 POST-TEST PROB (test cod e = 633040) <1/20,000 TRISOMY 13 (T13) (test code = 068088) Low probability T13 PRE-TEST PROB (test code = 096392) 236 T13 POST-TEST PROB (test cod e = 707826) <1/20,000 INTERPRETATION (test code = 177031) See Note IMPORTANT INFORMATION (test code = 465044) See Note RECOMMENDATION (test code = 347664) See Note GESTATION AT [place] (W) (test code = 745173) 12 weeks GESTATION AT [place] (D) (test code = 244927) 6 days DELIVERY DATE (EST.) (test code = 308120) 05/08/2024 PROVIDED HISTORY INFORMATION (test code = 591132) NUMBER OF FETUSES (test code = 360657) Prasad MATERNAL WEIGHT (test code = 726293) 174 LBS DATING METHOD (test code = 453601) LMP ESTIMATED DATE OF DELIVERY (GENET) (test code = 537876) 08/02/2023 IVF (test code = 780866) NO PATIENT CONSENT (test code = 161178) YES SEX (test code = 083084) See Note PDFE (test code = PDFReport) PDF Peter Veloz W/ [id number] 00:00:00* Test Item Value Reference Range Interpretation Comme nts FINAL NIPS RESULT (test code = 92792) Low Risk PREDICTED SEX (test code = 94431) Male FRACTION (EST.) (test code = 00333) 10 % TRISOMY 21 (T21) (test code = 80270) Low probability T21 PRE-TEST PROB (test code = 92011) 1/351 T21 POST-TEST PROB (test cod e = 56311) <1/20,000 TRISOMY 18 (T18) (test code = 489793) Low probability T18 PRE-TEST PROB (test code = 800303) 1/1,227 T18 POST-TEST PROB (test cod e = 614951) <1/20,000 TRISOMY 13 (T13) (test code = 348183) Low probability T13 PRE-TEST PROB (test code = 635988) 1/3,236 T13 POST-TEST PROB (test cod e = 892519) <1/20,000 INTERPRETATION (test code = 010873) See Note IMPORTANT INFORMATION (test code = 353143) See Note RECOMMENDATION (test code = 109675) See Note GESTATION AT [place] (W) (test code = 693893) 12 weeks GESTATION AT [place] (D) (test code = 580886) 6 days DELIVERY DATE (EST.) (test code = 388603) 05/08/2024 PROVIDED HISTORY INFORMATION (test code = 258103) NUMBER OF FETUSES (test code = 702455) Prasad MATERNAL WEIGHT (test code = 727178) 174 LBS DATING METHOD (test code = 202877) LMP ESTIMATED DATE OF DELIVERY (GENET) (test code = 114519) 08/02/2023 IVF (test code = 727306) NO PATIENT CONSENT (test code = 082753) YES SEX (test code = 442865) See Note PDFE (test code = PDFReport) PDF Peter Veloz W/ [id number] 00:00:00* Test Item Value Reference Range Interpretation Comme nts FINAL NIPS RESULT (test code = 53050) Low Risk PREDICTED SEX (test code = 08486) Male FRACTION (EST.) (test code = 74947) 10 % TRISOMY 21 (T21) (test code = 52655) Low probability T21 PRE-TEST PROB (test code = 43977) 1/351 T21 POST-TEST PROB (test cod e = 25773) <1/20,000 TRISOMY 18 (T18) (test code = 166247) Low probability T18 PRE-TEST PROB (test code = 986244) 1,227 T18 POST-TEST PROB (test cod e = 310064) <1/20,000 TRISOMY 13 (T13) (test code = 327183) Low probability T13 PRE-TEST PROB (test code = 399121) 1/3,236 T13 POST-TEST PROB (test cod e = 392447) <1/20,000 INTERPRETATION (test code = 485676) See Note IMPORTANT INFORMATION (test code = 909026) See Note RECOMMENDATION (test code = 575920) See Note GESTATION AT [place] (W) (test code = 205624) 12 weeks GESTATION AT [place] (D) (test code = 213531) 6 days DELIVERY DATE (EST.) (test code = 641678) 05/08/2024 PROVIDED HISTORY INFORMATION (test code = 918874) NUMBER OF FETUSES (test code = 701668) Prasad MATERNAL WEIGHT (test code = 578044) 174 LBS DATING METHOD (test code = 204496) LMP ESTIMATED DATE OF DELIVERY (GENET) (test code = 054576) 08/02/2023 IVF (test code = 010232) NO PATIENT CONSENT (test code = 432991) YES SEX (test code = 970347) See Note PDFE (test code = PDFReport) PDF Peter Veloz W/ [id number] 00:00:00* Test Item Value Reference Range Interpretation Comme nts FINAL NIPS RESULT (test code = 59198) Low Risk PREDICTED SEX (test code = 69531) Male FRACTION (EST.) (test code = 20679) 10 % TRISOMY 21 (T21) (test code = 15639) Low probability T21 PRE-TEST PROB (test code = 70843) T21 POST-TEST PROB (test cod e = 54260) <1/20,000 TRISOMY 18 (T18) (test code = 964891) Low probability T18 PRE-TEST PROB (test code = 574808) T18 POST-TEST PROB (test cod e = 946164) <1/20,000 TRISOMY 13 (T13) (test code = 065009) Low probability T13 PRE-TEST PROB (test code = 662148) T13 POST-TEST PROB (test cod e = 447472) <1/20,000 INTERPRETATION (test code = 708703) See Note IMPORTANT INFORMATION (test code = 294609) See Note RECOMMENDATION (test code = 843451) See Note GESTATION AT [place] (W) (test code = 730662) 12 weeks GESTATION AT [place] (D) (test code = 331454) 6 days DELIVERY DATE (EST.) (test code = 584486) 05/08/2024 PROVIDED HISTORY INFORMATION (test code = 001218) NUMBER OF FETUSES (test code = 440599) Prasad MATERNAL WEIGHT (test code = 404598) 174 LBS DATING METHOD (test code = 004219) LMP ESTIMATED DATE OF DELIVERY (GENET) (test code = 087194) 08/02/2023 IVF (test code = 377959) NO PATIENT CONSENT (test code = 575567) YES SEX (test code = 290177) See Note PDFE (test code = PDFReport) PDF Peter Veloz W/ [id number] 00:00:00* Test Item Value Reference Range Interpretation Comme nts FINAL NIPS RESULT (test code = 36590) Low Risk PREDICTED SEX (test code = 44954) Male FRACTION (EST.) (test code = 19643) 10 % TRISOMY 21 (T21) (test code = 00710) Low probability T21 PRE-TEST PROB (test code = 36119) T21 POST-TEST PROB (test cod e = 40108) <1/20,000 TRISOMY 18 (T18) (test code = 546442) Low probability T18 PRE-TEST PROB (test code = 091540) T18 POST-TEST PROB (test cod e = 052387) <1/20,000 TRISOMY 13 (T13) (test code = 511347) Low probability T13 PRE-TEST PROB (test code = 168508) T13 POST-TEST PROB (test cod e = 758612) <1/20,000 INTERPRETATION (test code = 443568) See Note IMPORTANT INFORMATION (test code = 043397) See Note RECOMMENDATION (test code = 160632) See Note GESTATION AT [place] (W) (test code = 288186) 12 weeks GESTATION AT [place] (D) (test code = 596560) 6 days DELIVERY DATE (EST.) (test code = 114228) 05/08/2024 PROVIDED HISTORY INFORMATION (test code = 487719) NUMBER OF FETUSES (test code = 190457) Prasad MATERNAL WEIGHT (test code = 769594) 174 LBS DATING METHOD (test code = 000689) LMP ESTIMATED DATE OF DELIVERY (GENET) (test code = 560105) 08/02/2023 IVF (test code = 017462) NO PATIENT CONSENT (test code = 330954) YES SEX (test code = 034593) See Note PDFE (test code = PDFReport) PDF Peter Romero Roselia W/ [id number] 00:00:00* Test Item Value Reference Range Interpretation Comme nts FINAL NIPS RESULT (test code = 55613) Low Risk PREDICTED SEX (test code = 89974) Male FRACTION (EST.) (test code = 50751) 10 % TRISOMY 21 (T21) (test code = 59488) Low probability T21 PRE-TEST PROB (test code = 19783) T2 POST-TEST PROB (test cod e = 60209) <1/20,000 TRISOMY 18 (T18) (test code = 384931) Low probability T18 PRE-TEST PROB (test code = 393487) T18 POST-TEST PROB (test cod e = 683418) <1/20,000 TRISOMY 13 (T13) (test code = 485987) Low probability T13 PRE-TEST PROB (test code = 025490) T13 POST-TEST PROB (test cod e = 605891) <1/20,000 INTERPRETATION (test code = 004936) See Note IMPORTANT INFORMATION (test code = 633478) See Note RECOMMENDATION (test code = 518961) See Note GESTATION AT [place] (W) (test code = 324018) 12 weeks GESTATION AT [place] (D) (test code = 026426) 6 days DELIVERY DATE (EST.) (test code = 620510) 05/08/2024 PROVIDED HISTORY INFORMATION (test code = 628099) NUMBER OF FETUSES (test code = 709993) Prasad MATERNAL WEIGHT (test code = 530714) 174 LBS DATING METHOD (test code = 916894) LMP ESTIMATED DATE OF DELIVERY (GENET) (test code = 898456) 08/02/2023 IVF (test code = 870838) NO PATIENT CONSENT (test code = 239021) YES SEX (test code = 802932) See Note PDFE (test code = PDFReport) PDF Peter Veloz W/ [id number] 00:00:00* Test Item Value Reference Range Interpretation Comme nts FINAL NIPS RESULT (test code = 98920) Low Risk PREDICTED SEX (test code = 12783) Male FRACTION (EST.) (test code = 52515) 10 % TRISOMY 21 (T21) (test code = 93226) Low probability T21 PRE-TEST PROB (test code = 20244) T2 POST-TEST PROB (test cod e = 52813) <1/20,000 TRISOMY 18 (T18) (test code = 461010) Low probability T18 PRE-TEST PROB (test code = 643405) T18 POST-TEST PROB (test cod e = 860279) <1/20,000 TRISOMY 13 (T13) (test code = 953356) Low probability T13 PRE-TEST PROB (test code = 032008) T13 POST-TEST PROB (test cod e = 432686) <1/20,000 INTERPRETATION (test code = 722445) See Note IMPORTANT INFORMATION (test code = 729463) See Note RECOMMENDATION (test code = 329580) See Note GESTATION AT [place] (W) (test code = 727406) 12 weeks GESTATION AT [place] (D) (test code = 088259) 6 days DELIVERY DATE (EST.) (test code = 350074) 05/08/2024 PROVIDED HISTORY INFORMATION (test code = 254417) NUMBER OF FETUSES (test code = 391688) Prasad MATERNAL WEIGHT (test code = 360007) 174 LBS DATING METHOD (test code = 212428) LMP ESTIMATED DATE OF DELIVERY (GENET) (test code = 793890) 08/02/2023 IVF (test code = 302759) NO PATIENT CONSENT (test code = 208835) YES SEX (test code = 412673) See Note PDFE (test code = PDFReport) PDF Peter LoftonTAINA W/ [id number] 00:00:00* Test Item Value Reference Range Interpretation Comme nts FINAL NIPS RESULT (test code = 05187) Low Risk PREDICTED SEX (test code = 53238) Male FRACTION (EST.) (test code = 19445) 10 % TRISOMY 21 (T21) (test code = 81581) Low probability T21 PRE-TEST PROB (test code = 40623) T21 POST-TEST PROB (test cod e = 98835) <1/20,000 TRISOMY 18 (T18) (test code = 366848) Low probability T18 PRE-TEST PROB (test code = 161706) T18 POST-TEST PROB (test cod e = 016364) <1/20,000 TRISOMY 13 (T13) (test code = 409939) Low probability T13 PRE-TEST PROB (test code = 159725) T13 POST-TEST PROB (test cod e = 074566) <1/20,000 INTERPRETATION (test code = 441240) See Note IMPORTANT INFORMATION (test code = 386066) See Note RECOMMENDATION (test code = 228563) See Note GESTATION AT [place] (W) (test code = 727390) 12 weeks GESTATION AT [place] (D) (test code = 418354) 6 days DELIVERY DATE (EST.) (test code = 534070) 05/08/2024 PROVIDED HISTORY INFORMATION (test code = 240326) NUMBER OF FETUSES (test code = 933619) Prasad MATERNAL WEIGHT (test code = 451302) 174 LBS DATING METHOD (test code = 127450) LMP ESTIMATED DATE OF DELIVERY (GENET) (test code = 852390) 08/02/2023 IVF (test code = 413002) NO PATIENT CONSENT (test code = 483819) YES SEX (test code = 002601) See Note PDFE (test code = PDFReport) PDF Peter Romero RollyUNM CANCER CENTERMani W/ [id number] 00:00:00* Test Item Value Reference Range Interpretation Comme nts FINAL NIPS RESULT (test code = 88616) Low Risk PREDICTED SEX (test code = 35953) Male FRACTION (EST.) (test code = 73859) 10 % TRISOMY 21 (T21) (test code = 47610) Low probability T21 PRE-TEST PROB (test code = 57024) 1/351 T21 POST-TEST PROB (test cod e = 61945) <1/20,000 TRISOMY 18 (T18) (test code = 733907) Low probability T18 PRE-TEST PROB (test code = 846649) 1,227 T18 POST-TEST PROB (test cod e = 808677) <1/20,000 TRISOMY 13 (T13) (test code = 431300) Low probability T13 PRE-TEST PROB (test code = 465432) 1,236 T13 POST-TEST PROB (test cod e = 457733) <1/20,000 INTERPRETATION (test code = 159223) See Note IMPORTANT INFORMATION (test code = 970912) See Note RECOMMENDATION (test code = 754386) See Note GESTATION AT [place] (W) (test code = 373638) 12 weeks GESTATION AT [place] (D) (test code = 066175) 6 days DELIVERY DATE (EST.) (test code = 046240) 05/08/2024 PROVIDED HISTORY INFORMATION (test code = 981822) NUMBER OF FETUSES (test code = 429126) Prasad MATERNAL WEIGHT (test code = 475729) 174 LBS DATING METHOD (test code = 999314) LMP ESTIMATED DATE OF DELIVERY (GENET) (test code = 156373) 08/02/2023 IVF (test code = 333327) NO PATIENT CONSENT (test code = 563205) YES SEX (test code = 473489) See Note PDFE (test code = PDFReport) PDF Peter Veloz W/ [id number] 00:00:00* Test Item Value Reference Range Interpretation Comme nts FINAL NIPS RESULT (test code = 82558) Low Risk PREDICTED SEX (test code = 20573) Male FRACTION (EST.) (test code = 67346) 10 % TRISOMY 21 (T21) (test code = 45317) Low probability T21 PRE-TEST PROB (test code = 43720) 1/351 T21 POST-TEST PROB (test cod e = 88135) <1/20,000 TRISOMY 18 (T18) (test code = 403947) Low probability T18 PRE-TEST PROB (test code = 067978) 1/1,227 T18 POST-TEST PROB (test cod e = 309407) <1/20,000 TRISOMY 13 (T13) (test code = 704144) Low probability T13 PRE-TEST PROB (test code = 041126) 1/3,236 T13 POST-TEST PROB (test cod e = 674584) <1/20,000 INTERPRETATION (test code = 274185) See Note IMPORTANT INFORMATION (test code = 432155) See Note RECOMMENDATION (test code = 118783) See Note GESTATION AT [place] (W) (test code = 293750) 12 weeks GESTATION AT [place] (D) (test code = 708598) 6 days DELIVERY DATE (EST.) (test code = 918443) 05/08/2024 PROVIDED HISTORY INFORMATION (test code = 640797) NUMBER OF FETUSES (test code = 225000) Prasad MATERNAL WEIGHT (test code = 721288) 174 LBS DATING METHOD (test code = 479363) LMP ESTIMATED DATE OF DELIVERY (GENET) (test code = 804533) 08/02/2023 IVF (test code = 442924) NO PATIENT CONSENT (test code = 828095) YES SEX (test code = 026424) See Note PDFE (test code = PDFReport) PDF Peter Veloz W/ [id number] 00:00:00* Test Item Value Reference Range Interpretation Comme nts FINAL NIPS RESULT (test code = 82772) Low Risk PREDICTED SEX (test code = 77193) Male FRACTION (EST.) (test code = 80265) 10 % TRISOMY 21 (T21) (test code = 30490) Low probability T21 PRE-TEST PROB (test code = 49285) 1/351 T21 POST-TEST PROB (test cod e = 38357) <1/20,000 TRISOMY 18 (T18) (test code = 321284) Low probability T18 PRE-TEST PROB (test code = 721887) 08/28,227 T18 POST-TEST PROB (test cod e = 658551) <1/20,000 TRISOMY 13 (T13) (test code = 584143) Low probability T13 PRE-TEST PROB (test code = 766609) 1,236 T13 POST-TEST PROB (test cod e = 917946) <1/20,000 INTERPRETATION (test code = 690718) See Note IMPORTANT INFORMATION (test code = 113459) See Note RECOMMENDATION (test code = 644354) See Note GESTATION AT [place] (W) (test code = 463563) 12 weeks GESTATION AT [place] (D) (test code = 674152) 6 days DELIVERY DATE (EST.) (test code = 281345) 05/08/2024 PROVIDED HISTORY INFORMATION (test code = 676711) NUMBER OF FETUSES (test code = 012700) Prasad MATERNAL WEIGHT (test code = 009406) 174 LBS DATING METHOD (test code = 518299) LMP ESTIMATED DATE OF DELIVERY (GENET) (test code = 137951) 08/02/2023 IVF (test code = 315423) NO PATIENT CONSENT (test code = 370034) YES SEX (test code = 436091) See Note PDFE (test code = PDFReport) PDF Peter GreenwoodT W/ [id number] 00:00:00* Test Item Value Reference Range Interpretation Comme nts FINAL NIPS RESULT (test code = 48274) Low Risk PREDICTED SEX (test code = 58519) Male FRACTION (EST.) (test code = 11408) 10 % TRISOMY 21 (T21) (test code = 25124) Low probability T21 PRE-TEST PROB (test code = 28373) T21 POST-TEST PROB (test cod e = 97511) <1/20,000 TRISOMY 18 (T18) (test code = 066772) Low probability T18 PRE-TEST PROB (test code = 592812) T18 POST-TEST PROB (test cod e = 642000) <1/20,000 TRISOMY 13 (T13) (test code = 934695) Low probability T13 PRE-TEST PROB (test code = 107803) T13 POST-TEST PROB (test cod e = 479565) <1/20,000 INTERPRETATION (test code = 598274) See Note IMPORTANT INFORMATION (test code = 475291) See Note RECOMMENDATION (test code = 085967) See Note GESTATION AT [place] (W) (test code = 159542) 12 weeks GESTATION AT [place] (D) (test code = 326859) 6 days DELIVERY DATE (EST.) (test code = 237732) 05/08/2024 PROVIDED HISTORY INFORMATION (test code = 703032) NUMBER OF FETUSES (test code = 334448) Prasad MATERNAL WEIGHT (test code = 900235) 174 LBS DATING METHOD (test code = 417415) LMP ESTIMATED DATE OF DELIVERY (GENET) (test code = 822376) 08/02/2023 IVF (test code = 942077) NO PATIENT CONSENT (test code = 424850) YES SEX (test code = 692525) See Note PDFE (test code = PDFReport) PDF Peter Veloz W/ [id number] 00:00:00* Test Item Value Reference Range Interpretation Comme nts FINAL NIPS RESULT (test code = 72705) Low Risk PREDICTED SEX (test code = 41623) Male FRACTION (EST.) (test code = 35893) 10 % TRISOMY 21 (T21) (test code = 61102) Low probability T21 PRE-TEST PROB (test code = 02589) T21 POST-TEST PROB (test cod e = 15870) <1/20,000 TRISOMY 18 (T18) (test code = 107762) Low probability T18 PRE-TEST PROB (test code = 061877) T18 POST-TEST PROB (test cod e = 669159) <1/20,000 TRISOMY 13 (T13) (test code = 852006) Low probability T13 PRE-TEST PROB (test code = 684844) T13 POST-TEST PROB (test cod e = 751278) <1/20,000 INTERPRETATION (test code = 335906) See Note IMPORTANT INFORMATION (test code = 752127) See Note RECOMMENDATION (test code = 001558) See Note GESTATION AT [place] (W) (test code = 044555) 12 weeks GESTATION AT [place] (D) (test code = 849441) 6 days DELIVERY DATE (EST.) (test code = 080941) 05/08/2024 PROVIDED HISTORY INFORMATION (test code = 743935) NUMBER OF FETUSES (test code = 021337) Prasad MATERNAL WEIGHT (test code = 533627) 174 LBS DATING METHOD (test code = 706556) LMP ESTIMATED DATE OF DELIVERY (GENET) (test code = 983742) 08/02/2023 IVF (test code = 538617) NO PATIENT CONSENT (test code = 220638) YES SEX (test code = 197805) See Note PDFE (test code = PDFReport) PDF Peter F AustinGLUCOSE TOLERANCE GESTATIONAL, 100 GM LOAD, DIAG., (FASTING,1HR 2023-11-07 00:00:00* Test Item Value Reference Range Interpretation Comme nts GLUCOSE, FASTING (test code = 94616) 85 MG/DL GLUCOSE, 1 HR (test code = ) 165 MG/DL GLUCOSE, 2 HR (test code = ) 130 MG/DL GLUCOSE, 3 HR (test code = ) 106 MG/DL Peter F AustinGLUCOSE TOLERANCE GESTATIONAL, 100 GM LOAD, DIAG., (FASTING,1HR 2023-11-07 00:00:00* Test Item Value Reference Range Interpretation Comme nts GLUCOSE, FASTING (test code = ) 85 MG/DL GLUCOSE, 1 HR (test code = ) 165 MG/DL GLUCOSE, 2 HR (test code = ) 130 MG/DL GLUCOSE, 3 HR (test code = ) 106 MG/DL Peter F AustinGLUCOSE TOLERANCE GESTATIONAL, 100 GM LOAD, DIAG., (FASTING,1HR 2023-11-07 00:00:00* Test Item Value Reference Range Interpretation Comme nts GLUCOSE, FASTING (test code = ) 85 MG/DL GLUCOSE, 1 HR (test code = ) 165 MG/DL GLUCOSE, 2 HR (test code = ) 130 MG/DL GLUCOSE, 3 HR (test code = ) 106 MG/DL Peter F AustinGLUCOSE TOLERANCE GESTATIONAL, 100 GM LOAD, DIAG., (FASTING,1HR 2023-11-07 00:00:00* Test Item Value Reference Range Interpretation Comme nts GLUCOSE, FASTING (test code = ) 85 MG/DL GLUCOSE, 1 HR (test code = ) 165 MG/DL GLUCOSE, 2 HR (test code = ) 130 MG/DL GLUCOSE, 3 HR (test code = ) 106 MG/DL Peter F AustinGLUCOSE TOLERANCE GESTATIONAL, 100 GM LOAD, DIAG., (FASTING,1HR 2023-11-07 00:00:00* Test Item Value Reference Range Interpretation Comme nts GLUCOSE, FASTING (test code = ) 85 MG/DL GLUCOSE, 1 HR (test code = ) 165 MG/DL GLUCOSE, 2 HR (test code = ) 130 MG/DL GLUCOSE, 3 HR (test code = ) 106 MG/DL Peter F AustinGLUCOSE TOLERANCE GESTATIONAL, 100 GM LOAD, DIAG., (FASTING,1HR 2023-11-07 00:00:00* Test Item Value Reference Range Interpretation Comme nts GLUCOSE, FASTING (test code = ) 85 MG/DL GLUCOSE, 1 HR (test code = ) 165 MG/DL GLUCOSE, 2 HR (test code = ) 130 MG/DL GLUCOSE, 3 HR (test code = ) 106 MG/DL Peter F AustinGLUCOSE TOLERANCE GESTATIONAL, 100 GM LOAD, DIAG., (FASTING,1HR 2023-11-07 00:00:00* Test Item Value Reference Range Interpretation Comme nts GLUCOSE, FASTING (test code = ) 85 MG/DL GLUCOSE, 1 HR (test code = ) 165 MG/DL GLUCOSE, 2 HR (test code = ) 130 MG/DL GLUCOSE, 3 HR (test code = ) 106 MG/DL Peter F AustinGLUCOSE TOLERANCE GESTATIONAL, 100 GM LOAD, DIAG., (FASTING,1HR 2023-11-07 00:00:00* Test Item Value Reference Range Interpretation Comme nts GLUCOSE, FASTING (test code = ) 85 MG/DL GLUCOSE, 1 HR (test code = ) 165 MG/DL GLUCOSE, 2 HR (test code = ) 130 MG/DL GLUCOSE, 3 HR (test code = ) 106 MG/DL Peter Nick AustinGLUCOSE TOLERANCE GESTATIONAL, 100 GM LOAD, DIAG., (FASTING,R 2023-11-07 00:00:00* Test Item Value Reference Range Interpretation Comme nts GLUCOSE, FASTING (test code = ) 85 MG/DL GLUCOSE, 1 HR (test code = ) 165 MG/DL GLUCOSE, 2 HR (test code = ) 130 MG/DL GLUCOSE, 3 HR (test code = ) 106 MG/DL Peter F AustinGLUCOSE TOLERANCE GESTATIONAL, 100 GM LOAD, DIAG., (FASTING,R 2023-11-07 00:00:00* Test Item Value Reference Range Interpretation Comme nts GLUCOSE, FASTING (test code = ) 85 MG/DL GLUCOSE, 1 HR (test code = ) 165 MG/DL GLUCOSE, 2 HR (test code = ) 130 MG/DL GLUCOSE, 3 HR (test code = ) 106 MG/DL Peter F AustinGLUCOSE TOLERANCE GESTATIONAL, 100 GM LOAD, DIAG., (FASTING,R 2023-11-07 00:00:00* Test Item Value Reference Range [...] (test code = ) 106 MG/DL Peter Nick AustinGLUCOSE TOLERANCE GESTATIONAL, 100 GM LOAD, DIAG., [...] (test code = ) 106 MG/DL Peter Nick AustinGLUCOSE TOLERANCE GESTATIONAL, 100 GM LOAD, DIAG., (FASTING,1HR 2023-11-07 00:00:00* Test Item Value Reference Range Interpretation Comme nts GLUCOSE, FASTING (test code = ) 85 MG/DL GLUCOSE, 1 HR (test code = ) 165 MG/DL GLUCOSE, 2 HR (test code = ) 130 MG/DL GLUCOSE, 3 HR (test code = ) 106 MG/DL Peter LoftonCULTURE, [id number] 00:00:00* Test Item Value Reference Range Interpretation Comme nts CULTURE, URINE (test code = 31828) SPECIMEN NUMBER: [id number] Peter LoftonCULTURE, [id number] 00:00:00* Test Item Value Reference Range Interpretation Comme nts CULTURE, URINE (test code = 67988) SPECIMEN NUMBER: [id number] Peter Ugarte, [id number] 00:00:00* Test Item Value Reference Range Interpretation Comme nts CULTURE, URINE (test code = 87023) SPECIMEN NUMBER: [id number] Peter Ugarte, [id number] 00:00:00* Test Item Value Reference Range Interpretation Comme nts CULTURE, URINE (test code = 76956) SPECIMEN NUMBER: [id number] Peter Ugarte [id number] 00:00:00* Test Item Value Reference Range Interpretation Comme nts CULTURE, URINE (test code = 33989) SPECIMEN NUMBER: [id number] Peter Ugarte [id number] 00:00:00* Test Item Value Reference Range Interpretation Comme nts CULTURE, URINE (test code = 83369) SPECIMEN NUMBER: [id number] Peter Ugarte, [id number] 00:00:00* Test Item Value Reference Range Interpretation Comme nts CULTURE, URINE (test code = 26533) SPECIMEN NUMBER: [id number] Peter Ugarte, [id number] 00:00:00* Test Item Value Reference Range Interpretation Comme nts CULTURE, URINE (test code = 43725) SPECIMEN NUMBER: [id number] Peter Ugarte, [id number] 00:00:00* Test Item Value Reference Range Interpretation Comme nts CULTURE, URINE (test code = 02538) SPECIMEN NUMBER: [id number] Peter Ugarte, [id number] 00:00:00* Test Item Value Reference Range Interpretation Comme nts CULTURE, URINE (test code = 56220) SPECIMEN NUMBER: [id number] Peter Ugarte, [id number] 00:00:00* Test Item Value Reference Range Interpretation Comme nts CULTURE, URINE (test code = 38710) SPECIMEN NUMBER: [id number] Peter Ugarte, [id number] 00:00:00* Test Item Value Reference Range Interpretation Comme nts CULTURE, URINE (test code = 45264) SPECIMEN NUMBER: [id number] Peter F AustinCULTURE, [id number] 00:00:00* Test Item Value Reference Range Interpretation Comme nts CULTURE, URINE (test code = 60494) SPECIMEN NUMBER: [id number] Peter LoftonCULTURE, [id number] 00:00:00* Test Item Value Reference Range Interpretation Comme nts CULTURE, URINE (test code = 72478) SPECIMEN NUMBER: [id number] Peter LoftonCULTBRYAN, [id number] 00:00:00* Test Item Value Reference Range Interpretation Comme nts CULTURE, URINE (test code = 60456) SPECIMEN NUMBER: [id number] Peter Romero AustinGLUCOSE, 1 HR, GESTATIONAL SCREEN, 50 GM [id number] 00:00:00 * Test Item Value Reference Range Interpretation Comme nts GLUCOSE 1 HR POST 50 GM (raghavendra t code = 2005) 152 MG/DL Peter F AustinGLUCOSE, 1 HR, GESTATIONAL SCREEN, 50 GM [id number] 00:00:00 * Test Item Value Reference Range Interpretation Comme nts GLUCOSE 1 HR POST 50 GM (raghavendra t code = 2005) 152 MG/DL Peter F AustinGLUCOSE, 1 HR, GESTATIONAL SCREEN, 50 GM [id number] 00:00:00 * Test Item Value Reference Range Interpretation Comme nts GLUCOSE 1 HR POST 50 GM (raghavendra t code = 2005) 152 MG/DL Peter F AustinGLUCOSE, 1 HR, GESTATIONAL SCREEN, 50 GM [id number] 00:00:00 * Test Item Value Reference Range Interpretation Comme nts GLUCOSE 1 HR POST 50 GM (raghavendra t code = 2005) 152 MG/DL Peter F AustinGLUCOSE, 1 HR, GESTATIONAL SCREEN, 50 GM [id number] 00:00:00 * Test Item Value Reference Range Interpretation Comme nts GLUCOSE 1 HR POST 50 GM (raghavendra t code = 2005) 152 MG/DL Peter F AustinGLUCOSE, 1 HR, GESTATIONAL SCREEN, 50 GM [id number] 00:00:00 * Test Item Value Reference Range Interpretation Comme nts GLUCOSE 1 HR POST 50 GM (raghavendra t code = 2005) 152 MG/DL Peter F AustinGLUCOSE, 1 HR, GESTATIONAL SCREEN, 50 GM [id number] 00:00:00 * Test Item Value Reference Range Interpretation Comme nts GLUCOSE 1 HR POST 50 GM (raghavendra t code = 2005) 152 MG/DL Peter F AustinGLUCOSE, 1 HR, GESTATIONAL SCREEN, 50 GM [id number] 00:00:00 * Test Item Value Reference Range Interpretation Comme nts GLUCOSE 1 HR POST 50 GM (raghavendra t code = 2005) 152 MG/DL Peter F AustinGLUCOSE, 1 HR, GESTATIONAL SCREEN, 50 GM [id number] 00:00:00 * Test Item Value Reference Range Interpretation Comme nts GLUCOSE 1 HR POST 50 GM (raghavendra t code = 2005) 152 MG/DL Peter F AustinGLUCOSE, 1 HR, GESTATIONAL SCREEN, 50 GM [id number] 00:00:00 * Test Item Value Reference Range Interpretation Comme nts GLUCOSE 1 HR POST 50 GM (raghavendra t code = 2005) 152 MG/DL Peter F AustinGLUCOSE, 1 HR, GESTATIONAL SCREEN, 50 GM [id number] 00:00:00 * Test Item Value Reference Range Interpretation Comme nts GLUCOSE 1 HR POST 50 GM (raghavendra t code = 2005) 152 MG/DL Peter F AustinGLUCOSE, 1 HR, GESTATIONAL SCREEN, 50 GM [id number] 00:00:00 * Test Item Value Reference Range Interpretation Comme nts GLUCOSE 1 HR POST 50 GM (raghavendra t code = 2005) 152 MG/DL Peter F AustinGLUCOSE, 1 HR, GESTATIONAL SCREEN, 50 GM [id number] 00:00:00 * Test Item Value Reference Range Interpretation Comme nts GLUCOSE 1 HR POST 50 GM (raghavendra t code = 2005) 152 MG/DL Peter F AustinGLUCOSE, 1 HR, GESTATIONAL SCREEN, 50 GM [id number] 00:00:00 * Test Item Value Reference Range Interpretation Comme nts GLUCOSE 1 HR POST 50 GM (raghavendra t code = 2005) 152 MG/DL Peter F AustinGLUCOSE, 1 HR, GESTATIONAL SCREEN, 50 GM [id number] 00:00:00 * Test Item Value Reference Range Interpretation Comme nts GLUCOSE 1 HR POST 50 GM (raghavendra t code = 2005) 152 MG/DL Peter F AustinHCG, [id number] 01:40:52* Test Item Value Reference Range Interpretation Comme nts HCG, QUANTITATIVE (test code = 2506) 55413 MIU/ML SEE BELOW EXPEC MARIAH VALUES FOR [...] . . . . . . MIU/ML 1-2YMGY-BABPAJHNTH FEMALES . . . . . . . . . . . . MIU/ML <=7 UNLESS OTHERWISE INDICATED, ALL TESTING PERFORMED AT [facility] [address] [place] [address] CREDIT INTERVIEWER: GOPAL BACON M.D. CLIA NUMBER [id number] [facility] [place]. [id number] HCG, [id number] 00:00:00* Test Item Value Reference Range Interpretation Comme nts HCG, QUANTITATIVE (test code = 2506) 36425 MIU/ML Peter LoftonHCG, [id number] 00:00:00* Test Item Value Reference Range Interpretation Comme nts HCG, QUANTITATIVE (test code = 2506) 34748 MIU/ML Peter Romero AustinHCG, [id number] 00:00:00* Test Item Value Reference Range Interpretation Comme nts HCG, QUANTITATIVE (test code = 2506) 60771 MIU/ML Petermadelyn LoftonHCG, [id number] 00:00:00* Test Item Value Reference Range Interpretation Comme nts HCG, QUANTITATIVE (test code = 2506) 20524 MIU/ML Peter F AustinHCG, [id number] 00:00:00* Test Item Value Reference Range Interpretation Comme nts HCG, QUANTITATIVE (test code = 2506) 95724 MIU/ML Peter F AustinHCG, [id number] 00:00:00* Test Item Value Reference Range Interpretation Comme nts HCG, QUANTITATIVE (test code = 2506) 41832 MIU/ML Peter F AustinHCG, [id number] 00:00:00* Test Item Value Reference Range Interpretation Comme nts HCG, QUANTITATIVE (test code = 2506) 09340 MIU/ML Peter F AustinHCG, [id number] 00:00:00* Test Item Value Reference Range Interpretation Comme nts HCG, QUANTITATIVE (test code = 2506) 17919 MIU/ML Peter F AustinHCG, [id number] 00:00:00* Test Item Value Reference Range Interpretation Comme nts HCG, QUANTITATIVE (test code = 2506) 30663 MIU/ML Peter F AustinHCG, [id number] 00:00:00* Test Item Value Reference Range Interpretation Comme nts HCG, QUANTITATIVE (test code = 2506) 71861 MIU/ML Peter F AustinHCG, [id number] 00:00:00* Test Item Value Reference Range Interpretation Comme nts HCG, QUANTITATIVE (test code = 2506) 37193 MIU/ML Peter F AustinHCG, [id number] 00:00:00* Test Item Value Reference Range Interpretation Comme nts HCG, QUANTITATIVE (test code = 2506) 05211 MIU/ML Peter F AustinHCG, [id number] 00:00:00* Test Item Value Reference Range Interpretation Comme nts HCG, QUANTITATIVE (test code = 2506) 51394 MIU/ML Peter F AustinHCG, [id number] 00:00:00* Test Item Value Reference Range Interpretation Comme nts HCG, QUANTITATIVE (test code = 2506) 75269 MIU/ML Peter F AustinHCG, [id number] 00:00:00* Test Item Value Reference Range Interpretation Comme nts HCG, QUANTITATIVE (test code = 2506) 62721 MIU/ML Peter F AustinHEMOGLOBIN [id number] 00:00:00* Test Item Value Reference Range Interpretation Comme nts HEMOGLOBIN A1 (test code = 2575) 98.1 % HEMOGLOBIN A2 (test code = 2576) 1.9 % HEMOGLOBIN F () (test c ode = 2722) 0.0 % HEMOGLOBIN S (test code = 2724) NONE % HEMOGLOBIN C (test code = 2726) NONE % OTHER HEMOGLOBIN VARIANT (te st code = 83493) NONE DETEC % PATHOLOGIST'S INTERPRETATION (test code = 2577) (NOTE) Peter LoftonHCG, [id number] 00:00:00* Test Item Value Reference Range Interpretation Comme nts HCG, QUANTITATIVE (test code = 2506) 60067 MIU/ML Peter LoftonCULTURE, [id number] 00:00:00* Test Item Value Reference Range Interpretation Comme nts CULTURE, URINE (test code = 33115) SPECIMEN NUMBER: [id number] Peter LoftonHEMOGLOBIN [id number] 00:00:00* Test Item Value Reference Range Interpretation Comme nts HEMOGLOBIN A1 (test code = 2575) 98.1 % HEMOGLOBIN A2 (test code = 2576) 1.9 % HEMOGLOBIN F () (test c ode = 2722) 0.0 % HEMOGLOBIN S (test code = 2724) NONE % HEMOGLOBIN C (test code = 2726) NONE % OTHER HEMOGLOBIN VARIANT (te st code = 93053) NONE DETEC % PATHOLOGIST'S INTERPRETATION (test code = 2577) (NOTE) Peter LoftonHEMOGLOBIN [id number] 00:00:00* Test Item Value Reference Range Interpretation Comme nts HEMOGLOBIN A1 (test code = 2575) 98.1 % HEMOGLOBIN A2 (test code = 2576) 1.9 % HEMOGLOBIN F () (test c ode = 2722) 0.0 % HEMOGLOBIN S (test code = 2724) NONE % HEMOGLOBIN C (test code = 2726) NONE % OTHER HEMOGLOBIN VARIANT (te st code = 96391) NONE DETEC % PATHOLOGIST'S INTERPRETATION (test code = 2577) (NOTE) Peter LoftonCULTURE, [id number] 00:00:00* Test Item Value Reference Range Interpretation Comme nts CULTURE, URINE (test code = 97307) SPECIMEN NUMBER: [id number] Peter LoftonHCG, [id number] 00:00:00* Test Item Value Reference Range Interpretation Comme nts HCG, QUANTITATIVE (test code = 2506) 20563 MIU/ML Peter LoftonHEMOGLOBIN [id number] 00:00:00* Test Item Value Reference Range Interpretation Comme nts HEMOGLOBIN A1 (test code = 2575) 98.1 % HEMOGLOBIN A2 (test code = 2576) 1.9 % HEMOGLOBIN F () (test c ode = 2722) 0.0 % HEMOGLOBIN S (test code = 2724) NONE % HEMOGLOBIN C (test code = 2726) NONE % OTHER HEMOGLOBIN VARIANT (te st code = 94576) NONE DETEC % PATHOLOGIST'S INTERPRETATION (test code = 2577) (NOTE) Peter Ugarte, [id number] 00:00:00* Test Item Value Reference Range Interpretation Comme nts CULTURE, URINE (test code = 45060) SPECIMEN NUMBER: [id number] Peter LoftonHCG, [id number] 00:00:00* Test Item Value Reference Range Interpretation Comme nts HCG, QUANTITATIVE (test code = 2506) 50107 MIU/ML Peter LoftonHEMOGLOBIN [id number] 00:00:00* Test Item Value Reference Range Interpretation Comme nts HEMOGLOBIN A1 (test code = 2575) 98.1 % HEMOGLOBIN A2 (test code = 2576) 1.9 % HEMOGLOBIN F () (test c ode = 2722) 0.0 % HEMOGLOBIN S (test code = 2724) NONE % HEMOGLOBIN C (test code = 2726) NONE % OTHER HEMOGLOBIN VARIANT (te st code = 99074) NONE DETEC % PATHOLOGIST'S INTERPRETATION (test code = 2577) (NOTE) Peter HurdLTBRYAN, [id number] 00:00:00* Test Item Value Reference Range Interpretation Comme nts CULTURE, URINE (test code = 39066) SPECIMEN NUMBER: [id number] Peter LoftonHCG, [id number] 00:00:00* Test Item Value Reference Range Interpretation Comme nts HCG, QUANTITATIVE (test code = 2506) 96783 MIU/ML Peter Romero AustinHEMOGLOBIN [id number] 00:00:00* Test Item Value Reference Range Interpretation Comme nts HEMOGLOBIN A1 (test code = 2575) 98.1 % HEMOGLOBIN A2 (test code = 2576) 1.9 % HEMOGLOBIN F () (test c ode = 2722) 0.0 % HEMOGLOBIN S (test code = 2724) NONE % HEMOGLOBIN C (test code = 2726) NONE % OTHER HEMOGLOBIN VARIANT (te st code = 50342) NONE DETEC % PATHOLOGIST'S INTERPRETATION (test code = 2577) (NOTE) Peter LoftonHCG, [id number] 00:00:00* Test Item Value Reference Range Interpretation Comme nts HCG, QUANTITATIVE (test code = 2506) 33956 MIU/ML Peter LoftonCULTURE, [id number] 00:00:00* Test Item Value Reference Range Interpretation Comme nts CULTURE, URINE (test code = 96030) SPECIMEN NUMBER: [id number] Peter Romero AustinHEMOGLOBIN [id number] 00:00:00* Test Item Value Reference Range Interpretation Comme nts HEMOGLOBIN A1 (test code = 2575) 98.1 % HEMOGLOBIN A2 (test code = 2576) 1.9 % HEMOGLOBIN F () (test c ode = 2722) 0.0 % HEMOGLOBIN S (test code = 2724) NONE % HEMOGLOBIN C (test code = 2726) NONE % OTHER HEMOGLOBIN VARIANT (te st code = 27382) NONE DETEC % PATHOLOGIST'S INTERPRETATION (test code = 2577) (NOTE) Peter LoftonHCG, [id number] 00:00:00* Test Item Value Reference Range Interpretation Comme nts HCG, QUANTITATIVE (test code = 2506) 51823 MIU/ML Peter LoftonCULTURE, [id number] 00:00:00* Test Item Value Reference Range Interpretation Comme nts CULTURE, URINE (test code = 48526) SPECIMEN NUMBER: [id number] Peter Romero AustinHEMOGLOBIN [id number] 00:00:00* Test Item Value Reference Range Interpretation Comme nts HEMOGLOBIN A1 (test code = 2575) 98.1 % HEMOGLOBIN A2 (test code = 2576) 1.9 % HEMOGLOBIN F () (test c ode = 2722) 0.0 % HEMOGLOBIN S (test code = 2724) NONE % HEMOGLOBIN C (test code = 2726) NONE % OTHER HEMOGLOBIN VARIANT (te st code = 31634) NONE DETEC % PATHOLOGIST'S INTERPRETATION (test code = 2577) (NOTE) Peter Ugarte, [id number] 00:00:00* Test Item Value Reference Range Interpretation Comme nts CULTURE, URINE (test code = 14907) SPECIMEN NUMBER: [id number] Peter LoftonHCG, [id number] 00:00:00* Test Item Value Reference Range Interpretation Comme nts HCG, QUANTITATIVE (test code = 2506) 59833 MIU/ML Peter Romero AustinHEMOGLOBIN [id number] 00:00:00* Test Item Value Reference Range Interpretation Comme nts HEMOGLOBIN A1 (test code = 2575) 98.1 % HEMOGLOBIN A2 (test code = 2576) 1.9 % HEMOGLOBIN F () (test c ode = 2722) 0.0 % HEMOGLOBIN S (test code = 2724) NONE % HEMOGLOBIN C (test code = 2726) NONE % OTHER HEMOGLOBIN VARIANT (te st code = 58014) NONE DETEC % PATHOLOGIST'S INTERPRETATION (test code = 2577) (NOTE) Peter Ugarte, [id number] 00:00:00* Test Item Value Reference Range Interpretation Comme nts CULTURE, URINE (test code = 11446) SPECIMEN NUMBER: [id number] Peter LoftonHCG, [id number] 00:00:00* Test Item Value Reference Range Interpretation Comme nts HCG, QUANTITATIVE (test code = 2506) 43402 MIU/ML Peter LoftonHEMOGLOBIN [id number] 00:00:00* Test Item Value Reference Range Interpretation Comme nts HEMOGLOBIN A1 (test code = 2575) 98.1 % HEMOGLOBIN A2 (test code = 2576) 1.9 % HEMOGLOBIN F () (test c ode = 2722) 0.0 % HEMOGLOBIN S (test code = 2724) NONE % HEMOGLOBIN C (test code = 2726) NONE % OTHER HEMOGLOBIN VARIANT (te st code = 54840) NONE DETEC % PATHOLOGIST'S INTERPRETATION (test code = 2577) (NOTE) Peter LoftonHCG, [id number] 00:00:00* Test Item Value Reference Range Interpretation Comme nts HCG, QUANTITATIVE (test code = 2506) 77117 MIU/ML Peter Ugarte, [id number] 00:00:00* Test Item Value Reference Range Interpretation Comme nts CULTURE, URINE (test code = 82048) SPECIMEN NUMBER: [id number] Peter LoftonHEMOGLOBIN [id number] 00:00:00* Test Item Value Reference Range Interpretation Comme nts HEMOGLOBIN A1 (test code = 2575) 98.1 % HEMOGLOBIN A2 (test code = 2576) 1.9 % HEMOGLOBIN F () (test c ode = 2722) 0.0 % HEMOGLOBIN S (test code = 2724) NONE % HEMOGLOBIN C (test code = 2726) NONE % OTHER HEMOGLOBIN VARIANT (te st code = 73298) NONE DETEC % PATHOLOGIST'S INTERPRETATION (test code = 2577) (NOTE) Peter Ugarte, [id number] 00:00:00* Test Item Value Reference Range Interpretation Comme nts CULTURE, URINE (test code = 89765) SPECIMEN NUMBER: [id number] Peter LoftonHCG, [id number] 00:00:00* Test Item Value Reference Range Interpretation Comme nts HCG, QUANTITATIVE (test code = 2506) 48259 MIU/ML Peter LoftonHEMOGLOBIN [id number] 00:00:00* Test Item Value Reference Range Interpretation Comme nts HEMOGLOBIN A1 (test code = 2575) 98.1 % HEMOGLOBIN A2 (test code = 2576) 1.9 % HEMOGLOBIN F () (test c ode = 2722) 0.0 % HEMOGLOBIN S (test code = 2724) NONE % HEMOGLOBIN C (test code = 2726) NONE % OTHER HEMOGLOBIN VARIANT (te st code = 89187) NONE DETEC % PATHOLOGIST'S INTERPRETATION (test code = 2577) (NOTE) Peter Ugarte, [id number] 00:00:00* Test Item Value Reference Range Interpretation Comme nts CULTURE, URINE (test code = 97169) SPECIMEN NUMBER: [id number] Peter LoftonHCG, [id number] 00:00:00* Test Item Value Reference Range Interpretation Comme nts HCG, QUANTITATIVE (test code = 2506) 93213 MIU/ML Peter Romero AustinHEMOGLOBIN [id number] 00:00:00* Test Item Value Reference Range Interpretation Comme nts HEMOGLOBIN A1 (test code = 2575) 98.1 % HEMOGLOBIN A2 (test code = 2576) 1.9 % HEMOGLOBIN F () (test c ode = 2722) 0.0 % HEMOGLOBIN S (test code = 2724) NONE % HEMOGLOBIN C (test code = 2726) NONE % OTHER HEMOGLOBIN VARIANT (te st code = 88390) NONE DETEC % PATHOLOGIST'S INTERPRETATION (test code = 2577) (NOTE) Peter HurdLTURE, [id number] 00:00:00* Test Item Value Reference Range Interpretation Comme nts CULTURE, URINE (test code = 38135) SPECIMEN NUMBER: [id number] Peter LoftonHCG, [id number] 00:00:00* Test Item Value Reference Range Interpretation Comme nts HCG, QUANTITATIVE (test code = 2506) 48314 MIU/ML Peter LoftonHEMOGLOBIN [id number] 00:00:00* Test Item Value Reference Range Interpretation Comme nts HEMOGLOBIN A1 (test code = 2575) 98.1 % HEMOGLOBIN A2 (test code = 2576) 1.9 % HEMOGLOBIN F () (test c ode = 2722) 0.0 % HEMOGLOBIN S (test code = 2724) NONE % HEMOGLOBIN C (test code = 2726) NONE % OTHER HEMOGLOBIN VARIANT (te st code = 55046) NONE DETEC % PATHOLOGIST'S INTERPRETATION (test code = 2577) (NOTE) Peter LoftonHCG, [id number] 00:00:00* Test Item Value Reference Range Interpretation Comme nts HCG, QUANTITATIVE (test code = 2506) 77522 MIU/ML Peter LoftonCULTURE, [id number] 00:00:00* Test Item Value Reference Range Interpretation Comme nts CULTURE, URINE (test code = 17554) SPECIMEN NUMBER: [id number] Peter LoftonHEMOGLOBIN [id number] 00:00:00* Test Item Value Reference Range Interpretation Comme nts HEMOGLOBIN A1 (test code = 2575) 98.1 % HEMOGLOBIN A2 (test code = 2576) 1.9 % HEMOGLOBIN F () (test c ode = 2722) 0.0 % HEMOGLOBIN S (test code = 2724) NONE % HEMOGLOBIN C (test code = 2726) NONE % OTHER HEMOGLOBIN VARIANT (te st code = 57167) NONE DETEC % PATHOLOGIST'S INTERPRETATION (test code = 2577) (NOTE) Peter LoftonHCG, [id number] 00:00:00* Test Item Value Reference Range Interpretation Comme nts HCG, QUANTITATIVE (test code = 2506) 55545 MIU/ML Peter LoftonCULTURE, [id number] 00:00:00* Test Item Value Reference Range Interpretation Comme nts CULTURE, URINE (test code = 32743) SPECIMEN NUMBER: [id number] Peter LoftonHCG, [id number] 00:00:00* Test Item Value Reference Range Interpretation Comme nts HCG, QUANTITATIVE (test code = 2506) 95874 MIU/ML Peter LoftonCULTURE, [id number] 00:00:00* Test Item Value Reference Range Interpretation Comme nts CULTURE, URINE (test code = 12359) SPECIMEN NUMBER: [id number] Peter LoftonCT/NG, TMA, [id number] 00:00:00* Test Item Value Reference Range Interpretation Comme nts CHLAMYDIA, NAAT, URINE (test code = 30700) NEGATIVE GONORRHEA, NAAT, URINE (test code = 17815) NEGATIVE Peter LoftonOBSTETRIC PANEL + [id number] 00:00:00* Test Item Value Reference Range Interpretation [...] K/UL ABS NUCLEATED RBCS (test code = 91930) 0.00 K/UL BLOOD TYPE AND RH (test code = 3901) O POSITIVE ANTIBODY SCREEN (test code = 3902) NEGATIVE RUBELLA ANTIBODY SCREEN (test code = 4600) 379 IU/ML RUBELLA IgG INTERP (test code = 48817) REACTIVE HEPATITIS B SURF AG (test code = 2739) NON-REACTIVE RPR (test code = 34852) NON-REACTIVE RPR TITER (test code = 3500) NOT INDIC. TITER HIV 1/2 4TH GEN, RFLX CONF (test code = 3514) NON-REACTIVE Peter LoftonDRUG ABUSE PANEL 10 WITH [id number] 00:00:00* Test Item Value Reference Range Interpretation Comme nts AMPHETAMINES (test code = 3201) NEGATIVE BARBITURATES (test code = 3202) NEGATIVE BENZODIAZEPINES (test code = 3203) NEGATIVE CANNABINOIDS (test code = 3204) NEGATIVE COCAINE METABOLITE (test cod e = 3205) NEGATIVE OPIATES (test code = 3209) NEGATIVE OXYCODONE (test code = 51418) NEGATIVE PHENCYCLIDINE (test code = 3210) NEGATIVE METHADONE (test code = 3207) NEGATIVE BUPRENORPHINE (test code = 30914) NEGATIVE SOURCE (test code = 525910) URINE Peter LoftonCT/NG, TMA, [id number] 00:00:00* Test Item Value Reference Range Interpretation Comme nts CHLAMYDIA, NAAT, URINE (test code = 21666) NEGATIVE GONORRHEA, NAAT, URINE (test code = 87354) NEGATIVE Peter LoftonVARICELLA ZOSTER [id number] 00:00:00* Test Item Value Reference Range Interpretation Comme nts VARICELLA ZOSTER IgG (test c ode = 04652) >2000 INDEX Peter LoftonHEPATITIS C REFLEX [id number] 00:00:00* Test Item Value Reference Range Interpretation Comme nts HEPATITIS C ANTIBODY (test c ode = 1918) NON-REACTIVE Peter LoftonGLUCOSE, 1 HR, GESTATIONAL SCREEN, 50 GM [id number] 00:00:00 * Test Item Value Reference Range Interpretation Comme nts GLUCOSE 1 HR POST 50 GM (raghavendra t code = 2006) 121 MG/DL Peter LoftonTRICHOMONAS, URINE, [id number] 00:00:00* Test Item Value Reference Range Interpretation Comme nts TRICHOMONAS, NAAT, URINE (te st code = 92596) NEGATIVE Peter LoftonOBSTETRIC PANEL + [id number] 00:00:00* Test Item Value Reference Range Interpretation [...] K/UL ABS NUCLEATED RBCS (test code = 62717) 0.00 K/UL BLOOD TYPE AND RH (test code = 3901) O POSITIVE ANTIBODY SCREEN (test code = 3902) NEGATIVE RUBELLA ANTIBODY SCREEN (test code = 4600) 379 IU/ML RUBELLA IgG INTERP (test code = 73416) REACTIVE HEPATITIS B SURF AG (test code = 2739) NON-REACTIVE RPR (test code = 11659) NON-REACTIVE RPR TITER (test code = 3500) NOT INDIC. TITER HIV 1/2 4TH GEN, RFLX CONF (test code = 3514) NON-REACTIVE Peter LoftonDRUG ABUSE PANEL 10 WITH [id number] 00:00:00* Test Item Value Reference Range Interpretation Comme nts AMPHETAMINES (test code = 3201) NEGATIVE BARBITURATES (test code = 3202) NEGATIVE BENZODIAZEPINES (test code = 3203) NEGATIVE CANNABINOIDS (test code = 3204) NEGATIVE COCAINE METABOLITE (test cod e = 3205) NEGATIVE OPIATES (test code = 3209) NEGATIVE OXYCODONE (test code = 22533) NEGATIVE PHENCYCLIDINE (test code = 3210) NEGATIVE METHADONE (test code = 3207) NEGATIVE BUPRENORPHINE (test code = 65104) NEGATIVE SOURCE (test code = 852319) URINE Peter Romero AustinCT/NG, TMA, [id number] 00:00:00* Test Item Value Reference Range Interpretation Comme nts CHLAMYDIA, NAAT, URINE (test code = 84246) NEGATIVE GONORRHEA, NAAT, URINE (test code = 12149) NEGATIVE Peter LoftonOBSTETRIC PANEL + [id number] 00:00:00* Test Item Value Reference Range Interpretation [...] K/UL ABS NUCLEATED RBCS (test code = 08789) 0.00 K/UL BLOOD TYPE AND RH (test code = 3901) O POSITIVE ANTIBODY SCREEN (test code = 3902) NEGATIVE RUBELLA ANTIBODY SCREEN (test code = 4600) 379 IU/ML RUBELLA IgG INTERP (test code = 70263) REACTIVE HEPATITIS B SURF AG (test code = 2739) NON-REACTIVE RPR (test code = 11204) NON-REACTIVE RPR TITER (test code = 3500) NOT INDIC. TITER HIV 1/2 4TH GEN, RFLX CONF (test code = 3514) NON-REACTIVE Peter LoftonDRUG ABUSE PANEL 10 WITH [id number] 00:00:00* Test Item Value Reference Range Interpretation Comme nts AMPHETAMINES (test code = 3201) NEGATIVE BARBITURATES (test code = 3202) NEGATIVE BENZODIAZEPINES (test code = 3203) NEGATIVE CANNABINOIDS (test code = 3204) NEGATIVE COCAINE METABOLITE (test cod e = 3205) NEGATIVE OPIATES (test code = 3209) NEGATIVE OXYCODONE (test code = 93698) NEGATIVE PHENCYCLIDINE (test code = 3210) NEGATIVE METHADONE (test code = 3207) NEGATIVE BUPRENORPHINE (test code = 79709) NEGATIVE SOURCE (test code = 984577) URINE Peter LoftonVARICELLA ZOSTER [id number] 00:00:00* Test Item Value Reference Range Interpretation Comme nts VARICELLA ZOSTER IgG (test c ode = 67033) >2000 INDEX Peter LoftonVARICELLA ZOSTER [id number] 00:00:00* Test Item Value Reference Range Interpretation Comme nts VARICELLA ZOSTER IgG (test c ode = 93403) >2000 INDEX Peter LoftonHEPATITIS C REFLEX [id number] 00:00:00* Test Item Value Reference Range Interpretation Comme nts HEPATITIS C ANTIBODY (test c ode = 4675) NON-REACTIVE Peter LoftonGLUCOSE, 1 HR, GESTATIONAL SCREEN, 50 GM [id number] 00:00:00 * Test Item Value Reference Range Interpretation Comme nts GLUCOSE 1 HR POST 50 GM (raghavendra t code = 2005) 121 MG/DL Peter Romero AustinTRICHOMONAS, URINE, [id number] 00:00:00* Test Item Value Reference Range Interpretation Comme nts TRICHOMONAS, NAAT, URINE (te st code = 40739) NEGATIVE Peter SandhuPATITIS C REFLEX [id number] 00:00:00* Test Item Value Reference Range Interpretation Comme nts HEPATITIS C ANTIBODY (test c ode = 4675) NON-REACTIVE Peter LoftonGLUCOSE, 1 HR, GESTATIONAL SCREEN, 50 GM [id number] 00:00:00 * Test Item Value Reference Range Interpretation Comme nts GLUCOSE 1 HR POST 50 GM (raghavendra t code = 2005) 121 MG/DL Peter Romero AustinTRICHOMONAS, URINE, [id number] 00:00:00* Test Item Value Reference Range Interpretation Comme nts TRICHOMONAS, NAAT, URINE (te st code = 93859) NEGATIVE Peter LoftonCT/NG, TMA, [id number] 00:00:00* Test Item Value Reference Range Interpretation Comme nts CHLAMYDIA, NAAT, URINE (test code = 73288) NEGATIVE GONORRHEA, NAAT, URINE (test code = 44015) NEGATIVE Peter LoftonOBSTETRIC PANEL + [id number] 00:00:00* Test Item Value Reference Range Interpretation [...] K/UL ABS NUCLEATED RBCS (test code = 76023) 0.00 K/UL BLOOD TYPE AND RH (test code = 3901) O POSITIVE ANTIBODY SCREEN (test code = 3902) NEGATIVE RUBELLA ANTIBODY SCREEN (test code = 4600) 379 IU/ML RUBELLA IgG INTERP (test code = 28889) REACTIVE HEPATITIS B SURF AG (test code = 2739) NON-REACTIVE RPR (test code = 11906) NON-REACTIVE RPR TITER (test code = 3500) NOT INDIC. TITER HIV 1/2 4TH GEN, RFLX CONF (test code = 3514) NON-REACTIVE Peter F RollyDRUG ABUSE PANEL 10 WITH [id number] 00:00:00* Test Item Value Reference Range Interpretation Comme nts AMPHETAMINES (test code = 3201) NEGATIVE BARBITURATES (test code = 3202) NEGATIVE BENZODIAZEPINES (test code = 3203) NEGATIVE CANNABINOIDS (test code = 3204) NEGATIVE COCAINE METABOLITE (test cod e = 3205) NEGATIVE OPIATES (test code = 3209) NEGATIVE OXYCODONE (test code = 55986) NEGATIVE PHENCYCLIDINE (test code = 3210) NEGATIVE METHADONE (test code = 3207) NEGATIVE BUPRENORPHINE (test code = 30686) NEGATIVE SOURCE (test code = 372387) URINE Petermadelyn LoftonVINIA ZOSTER [id number] 00:00:00* Test Item Value Reference Range Interpretation Comme nts VARICELLA ZOSTER IgG (test c ode = 72897) >2000 INDEX Peter LoftonHEPATITIS C REFLEX [id number] 00:00:00* Test Item Value Reference Range Interpretation Comme nts HEPATITIS C ANTIBODY (test c ode = 8895) NON-REACTIVE Peter LoftonGLUCOSE, 1 HR, GESTATIONAL SCREEN, 50 GM [id number] 00:00:00 * Test Item Value Reference Range Interpretation Comme nts GLUCOSE 1 HR POST 50 GM (raghavendra t code = 2006) 121 MG/DL Peter LoftonTRICHOMONAS, URINE, [id number] 00:00:00* Test Item Value Reference Range Interpretation Comme nts TRICHOMONAS, NAAT, URINE (te st code = 35770) NEGATIVE Peter LoftonCT/NG, TMA, [id number] 00:00:00* Test Item Value Reference Range Interpretation Comme nts CHLAMYDIA, NAAT, URINE (test code = 82460) NEGATIVE GONORRHEA, NAAT, URINE (test code = 33216) NEGATIVE Peter LoftonOBSTETRIC PANEL + [id number] 00:00:00* Test Item Value Reference Range Interpretation [...] K/UL ABS NUCLEATED RBCS (test code = 89450) 0.00 K/UL BLOOD TYPE AND RH (test code = 3901) O POSITIVE ANTIBODY SCREEN (test code = 3902) NEGATIVE RUBELLA ANTIBODY SCREEN (test code = 4600) 379 IU/ML RUBELLA IgG INTERP (test code = 59242) REACTIVE HEPATITIS B SURF AG (test code = 2739) NON-REACTIVE RPR (test code = 54929) NON-REACTIVE RPR TITER (test code = 3500) NOT INDIC. TITER HIV 1/2 4TH GEN, RFLX CONF (test code = 3514) NON-REACTIVE Peter LoftonDRUG ABUSE PANEL 10 WITH [id number] 00:00:00* Test Item Value Reference Range Interpretation Comme nts AMPHETAMINES (test code = 3201) NEGATIVE BARBITURATES (test code = 3202) NEGATIVE BENZODIAZEPINES (test code = 3203) NEGATIVE CANNABINOIDS (test code = 3204) NEGATIVE COCAINE METABOLITE (test cod e = 3205) NEGATIVE OPIATES (test code = 3209) NEGATIVE OXYCODONE (test code = 22852) NEGATIVE PHENCYCLIDINE (test code = 3210) NEGATIVE METHADONE (test code = 3207) NEGATIVE BUPRENORPHINE (test code = 27877) NEGATIVE SOURCE (test code = 363602) URINE Peter LoftonVARICELLA ZOSTER [id number] 00:00:00* Test Item Value Reference Range Interpretation Comme nts VARICELLA ZOSTER IgG (test c ode = 00098) >2000 INDEX Peter LoftonHEPATITIS C REFLEX [id number] 00:00:00* Test Item Value Reference Range Interpretation Comme nts HEPATITIS C ANTIBODY (test c ode = 4675) NON-REACTIVE Peter LoftonGLUCOSE, 1 HR, GESTATIONAL SCREEN, 50 GM [id number] 00:00:00 * Test Item Value Reference Range Interpretation Comme nts GLUCOSE 1 HR POST 50 GM (raghavendra t code = 2005) 121 MG/DL Peetr LoftonTRICHOMONAS, URINE, [id number] 00:00:00* Test Item Value Reference Range Interpretation Comme nts TRICHOMONAS, NAAT, URINE (te st code = 38361) NEGATIVE Peter LoftonCT/NG, TMA, [id number] 00:00:00* Test Item Value Reference Range Interpretation Comme nts CHLAMYDIA, NAAT, URINE (test code = 69232) NEGATIVE GONORRHEA, NAAT, URINE (test code = 70639) NEGATIVE Peter LoftonOBSTETRIC PANEL + [id number] 00:00:00* Test Item Value Reference Range Interpretation [...] K/UL ABS NUCLEATED RBCS (test code = 40925) 0.00 K/UL BLOOD TYPE AND RH (test code = 3901) O POSITIVE ANTIBODY SCREEN (test code = 3902) NEGATIVE RUBELLA ANTIBODY SCREEN (test code = 4600) 379 IU/ML RUBELLA IgG INTERP (test code = 07024) REACTIVE HEPATITIS B SURF AG (test code = 2739) NON-REACTIVE RPR (test code = 95999) NON-REACTIVE RPR TITER (test code = 3500) NOT INDIC. TITER HIV 1/2 4TH GEN, RFLX CONF (test code = 3514) NON-REACTIVE Peter LoftonDRUG ABUSE PANEL 10 WITH [id number] 00:00:00* Test Item Value Reference Range Interpretation Comme nts AMPHETAMINES (test code = 3201) NEGATIVE BARBITURATES (test code = 3202) NEGATIVE BENZODIAZEPINES (test code = 3203) NEGATIVE CANNABINOIDS (test code = 3204) NEGATIVE COCAINE METABOLITE (test cod e = 3205) NEGATIVE OPIATES (test code = 3209) NEGATIVE OXYCODONE (test code = 68132) NEGATIVE PHENCYCLIDINE (test code = 3210) NEGATIVE METHADONE (test code = 3207) NEGATIVE BUPRENORPHINE (test code = 10762) NEGATIVE SOURCE (test code = 042494) URINE Peter LoftonVARICELLA ZOSTER [id number] 00:00:00* Test Item Value Reference Range Interpretation Comme michael VARICELLA ZOSTER IgG (test c ode = 79907) >2000 INDEX Peter LoftonHEPATITIS C REFLEX [id number] 00:00:00* Test Item Value Reference Range Interpretation Comme nts HEPATITIS C ANTIBODY (test c ode = 4675) NON-REACTIVE Peter LoftonGLUCOSE, 1 HR, GESTATIONAL SCREEN, 50 GM [id number] 00:00:00 * Test Item Value Reference Range Interpretation Comme nts GLUCOSE 1 HR POST 50 GM (raghavendra t code = 2005) 121 MG/DL Peter LoftonTRICHOMONAS, URINE, [id number] 00:00:00* Test Item Value Reference Range Interpretation Comme nts TRICHOMONAS, NAAT, URINE (te st code = 36245) NEGATIVE Peter LoftonCT/NG, TMA, [id number] 00:00:00* Test Item Value Reference Range Interpretation Comme nts CHLAMYDIA, NAAT, URINE (test code = 00985) NEGATIVE GONORRHEA, NAAT, URINE (test code = 50731) NEGATIVE Peter LoftonOBSTETRIC PANEL + [id number] 00:00:00* Test Item Value Reference Range Interpretation [...] K/UL ABS NUCLEATED RBCS (test code = 45860) 0.00 K/UL BLOOD TYPE AND RH (test code = 3901) O POSITIVE ANTIBODY SCREEN (test code = 3902) NEGATIVE RUBELLA ANTIBODY SCREEN (test code = 4600) 379 IU/ML RUBELLA IgG INTERP (test code = 01066) REACTIVE HEPATITIS B SURF AG (test code = 2739) NON-REACTIVE RPR (test code = 86091) NON-REACTIVE RPR TITER (test code = 3500) NOT INDIC. TITER HIV 1/2 4TH GEN, RFLX CONF (test code = 3514) NON-REACTIVE Peter LoftonDRUG ABUSE PANEL 10 WITH [id number] 00:00:00* Test Item Value Reference Range Interpretation Comme nts AMPHETAMINES (test code = 3201) NEGATIVE BARBITURATES (test code = 3202) NEGATIVE BENZODIAZEPINES (test code = 3203) NEGATIVE CANNABINOIDS (test code = 3204) NEGATIVE COCAINE METABOLITE (test cod e = 3205) NEGATIVE OPIATES (test code = 3209) NEGATIVE OXYCODONE (test code = 65212) NEGATIVE PHENCYCLIDINE (test code = 3210) NEGATIVE METHADONE (test code = 3207) NEGATIVE BUPRENORPHINE (test code = 17439) NEGATIVE SOURCE (test code = 961951) URINE Peter LoftonVARICELLA ZOSTER [id number] 00:00:00* Test Item Value Reference Range Interpretation Comme michael VARICELLA ZOSTER IgG (test c ode = 84465) >2000 INDEX Peter LoftonHEPATITIS C REFLEX [id number] 00:00:00* Test Item Value Reference Range Interpretation Comme nts HEPATITIS C ANTIBODY (test c ode = 4675) NON-REACTIVE Peter LoftonGLUCOSE, 1 HR, GESTATIONAL SCREEN, 50 GM [id number] 00:00:00 * Test Item Value Reference Range Interpretation Comme michael GLUCOSE 1 HR POST 50 GM (raghavendra t code = 2005) 121 MG/DL Peter LoftonTRICHOMONAS, URINE, [id number] 00:00:00* Test Item Value Reference Range Interpretation Comme nts TRICHOMONAS, NAAT, URINE (te st code = 53541) NEGATIVE Peter LoftonCT/NG, TMA, [id number] 00:00:00* Test Item Value Reference Range Interpretation Comme nts CHLAMYDIA, NAAT, URINE (test code = 94147) NEGATIVE GONORRHEA, NAAT, URINE (test code = 39280) NEGATIVE Peter LoftonOBSTETRIC PANEL + [id number] 00:00:00* Test Item Value Reference Range Interpretation [...] K/UL ABS NUCLEATED RBCS (test code = 79943) 0.00 K/UL BLOOD TYPE AND RH (test code = 3901) O POSITIVE ANTIBODY SCREEN (test code = 3902) NEGATIVE RUBELLA ANTIBODY SCREEN (test code = 4600) 379 IU/ML RUBELLA IgG INTERP (test code = 94318) REACTIVE HEPATITIS B SURF AG (test code = 2739) NON-REACTIVE RPR (test code = 96246) NON-REACTIVE RPR TITER (test code = 3500) NOT INDIC. TITER HIV 1/2 4TH GEN, RFLX CONF (test code = 3514) NON-REACTIVE Peter LoftonDRUG ABUSE PANEL 10 WITH [id number] 00:00:00* Test Item Value Reference Range Interpretation Comme nts AMPHETAMINES (test code = 3201) NEGATIVE BARBITURATES (test code = 3202) NEGATIVE BENZODIAZEPINES (test code = 3203) NEGATIVE CANNABINOIDS (test code = 3204) NEGATIVE COCAINE METABOLITE (test cod e = 3205) NEGATIVE OPIATES (test code = 3209) NEGATIVE OXYCODONE (test code = 80852) NEGATIVE PHENCYCLIDINE (test code = 3210) NEGATIVE METHADONE (test code = 3207) NEGATIVE BUPRENORPHINE (test code = 00972) NEGATIVE SOURCE (test code = 471260) URINE Peter LoftonVARICELLA ZOSTER [id number] 00:00:00* Test Item Value Reference Range Interpretation Comme nts VARICELLA ZOSTER IgG (test c ode = 33693) >2000 INDEX Peter LoftonHEPATITIS C REFLEX [id number] 00:00:00* Test Item Value Reference Range Interpretation Comme nts HEPATITIS C ANTIBODY (test c ode = 4675) NON-REACTIVE Peter LoftonGLUCOSE, 1 HR, GESTATIONAL SCREEN, 50 GM [id number] 00:00:00 * Test Item Value Reference Range Interpretation Comme nts GLUCOSE 1 HR POST 50 GM (raghavendra t code = 2006) 121 MG/DL Peter LoftonTRICHOMONAS, URINE, [id number] 00:00:00* Test Item Value Reference Range Interpretation Comme nts TRICHOMONAS, NAAT, URINE (te st code = 49761) NEGATIVE Peter LoftonCT/NG, TMA, [id number] 00:00:00* Test Item Value Reference Range Interpretation Comme nts CHLAMYDIA, NAAT, URINE (test code = 55985) NEGATIVE GONORRHEA, NAAT, URINE (test code = 55838) NEGATIVE Peter LoftonOBSTETRIC PANEL + [id number] 00:00:00* Test Item Value Reference Range Interpretation [...] K/UL ABS NUCLEATED RBCS (test code = 88724) 0.00 K/UL BLOOD TYPE AND RH (test code = 3901) O POSITIVE ANTIBODY SCREEN (test code = 3902) NEGATIVE RUBELLA ANTIBODY SCREEN (test code = 4600) 379 IU/ML RUBELLA IgG INTERP (test code = 38564) REACTIVE HEPATITIS B SURF AG (test code = 2739) NON-REACTIVE RPR (test code = 92846) NON-REACTIVE RPR TITER (test code = 3500) NOT INDIC. TITER HIV 1/2 4TH GEN, RFLX CONF (test code = 3514) NON-REACTIVE Peter LoftonDRUG ABUSE PANEL 10 WITH [id number] 00:00:00* Test Item Value Reference Range Interpretation Comme nts AMPHETAMINES (test code = 3201) NEGATIVE BARBITURATES (test code = 3202) NEGATIVE BENZODIAZEPINES (test code = 3203) NEGATIVE CANNABINOIDS (test code = 3204) NEGATIVE COCAINE METABOLITE (test cod e = 3205) NEGATIVE OPIATES (test code = 3209) NEGATIVE OXYCODONE (test code = 14710) NEGATIVE PHENCYCLIDINE (test code = 3210) NEGATIVE METHADONE (test code = 3207) NEGATIVE BUPRENORPHINE (test code = 67938) NEGATIVE SOURCE (test code = 396269) URINE Peter LoftonVARICELLA ZOSTER [id number] 00:00:00* Test Item Value Reference Range Interpretation Comme nts VARICELLA ZOSTER IgG (test c ode = 04033) >2000 INDEX Peter LoftonHEPATITIS C REFLEX [id number] 00:00:00* Test Item Value Reference Range Interpretation Comme nts HEPATITIS C ANTIBODY (test c ode = 4675) NON-REACTIVE Peter LoftonGLUCOSE, 1 HR, GESTATIONAL SCREEN, 50 GM [id number] 00:00:00 * Test Item Value Reference Range Interpretation Comme nts GLUCOSE 1 HR POST 50 GM (raghavendra t code = 2005) 121 MG/DL Peter LoftonTRICHOMONAS, URINE, [id number] 00:00:00* Test Item Value Reference Range Interpretation Comme nts TRICHOMONAS, NAAT, URINE (te st code = 02063) NEGATIVE Peter LoftonCT/NG, TMA, [id number] 00:00:00* Test Item Value Reference Range Interpretation Comme nts CHLAMYDIA, NAAT, URINE (test code = 35444) NEGATIVE GONORRHEA, NAAT, URINE (test code = 57010) NEGATIVE Peter LoftonOBSTETRIC PANEL + [id number] 00:00:00* Test Item Value Reference Range Interpretation [...] K/UL ABS NUCLEATED RBCS (test code = 96429) 0.00 K/UL BLOOD TYPE AND RH (test code = 3901) O POSITIVE ANTIBODY SCREEN (test code = 3902) NEGATIVE RUBELLA ANTIBODY SCREEN (test code = 4600) 379 IU/ML RUBELLA IgG INTERP (test code = 92056) REACTIVE HEPATITIS B SURF AG (test code = 2739) NON-REACTIVE RPR (test code = 46098) NON-REACTIVE RPR TITER (test code = 3500) NOT INDIC. TITER HIV 1/2 4TH GEN, RFLX CONF (test code = 3514) NON-REACTIVE Peter F AustinDRUG ABUSE PANEL 10 WITH [id number] 00:00:00* Test Item Value Reference Range Interpretation Comme nts AMPHETAMINES (test code = 3201) NEGATIVE BARBITURATES (test code = 3202) NEGATIVE BENZODIAZEPINES (test code = 3203) NEGATIVE CANNABINOIDS (test code = 3204) NEGATIVE COCAINE METABOLITE (test cod e = 3205) NEGATIVE OPIATES (test code = 3209) NEGATIVE OXYCODONE (test code = 40495) NEGATIVE PHENCYCLIDINE (test code = 3210) NEGATIVE METHADONE (test code = 3207) NEGATIVE BUPRENORPHINE (test code = 67638) NEGATIVE SOURCE (test code = 460117) URINE Peter LoftonVARICELLA ZOSTER [id number] 00:00:00* Test Item Value Reference Range Interpretation Comme michael VARICELLA ZOSTER IgG (test c ode = 16888) >2000 INDEX Peter LoftonHEPATITIS C REFLEX [id number] 00:00:00* Test Item Value Reference Range Interpretation Comme nts HEPATITIS C ANTIBODY (test c ode = 4675) NON-REACTIVE Peter LoftonGLUCOSE, 1 HR, GESTATIONAL SCREEN, 50 GM [id number] 00:00:00 * Test Item Value Reference Range Interpretation Comme nts GLUCOSE 1 HR POST 50 GM (raghavendra t code = 2005) 121 MG/DL Peter LoftonTRICHOMONAS, URINE, [id number] 00:00:00* Test Item Value Reference Range Interpretation Comme nts TRICHOMONAS, NAAT, URINE (te st code = 98331) NEGATIVE Peter LoftonCT/NG, TMA, [id number] 00:00:00* Test Item Value Reference Range Interpretation Comme nts CHLAMYDIA, NAAT, URINE (test code = 43235) NEGATIVE GONORRHEA, NAAT, URINE (test code = 01995) NEGATIVE Pteer LoftonOBSTETRIC PANEL + [id number] 00:00:00* Test Item Value Reference Range Interpretation [...] K/UL ABS NUCLEATED RBCS (test code = 28799) 0.00 K/UL BLOOD TYPE AND RH (test code = 3901) O POSITIVE ANTIBODY SCREEN (test code = 3902) NEGATIVE RUBELLA ANTIBODY SCREEN (test code = 4600) 379 IU/ML RUBELLA IgG INTERP (test code = 29949) REACTIVE HEPATITIS B SURF AG (test code = 2739) NON-REACTIVE RPR (test code = 63907) NON-REACTIVE RPR TITER (test code = 3500) NOT INDIC. TITER HIV 1/2 4TH GEN, RFLX CONF (test code = 3514) NON-REACTIVE Peter LoftonDRUG ABUSE PANEL 10 WITH [id number] 00:00:00* Test Item Value Reference Range Interpretation Comme nts AMPHETAMINES (test code = 3201) NEGATIVE BARBITURATES (test code = 3202) NEGATIVE BENZODIAZEPINES (test code = 3203) NEGATIVE CANNABINOIDS (test code = 3204) NEGATIVE COCAINE METABOLITE (test cod e = 3205) NEGATIVE OPIATES (test code = 3209) NEGATIVE OXYCODONE (test code = 16394) NEGATIVE PHENCYCLIDINE (test code = 8170) NEGATIVE METHADONE (test code = 3207) NEGATIVE BUPRENORPHINE (test code = 32110) NEGATIVE SOURCE (test code = 879286) URINE Peter LoftonVARICELLA ZOSTER [id number] 00:00:00* Test Item Value Reference Range Interpretation Comme michael VARICELLA ZOSTER IgG (test c ode = 57887) >2000 INDEX Peter LoftonHEPATITIS C REFLEX [id number] 00:00:00* Test Item Value Reference Range Interpretation Comme nts HEPATITIS C ANTIBODY (test c ode = 4675) NON-REACTIVE Peter LoftonGLUCOSE, 1 HR, GESTATIONAL SCREEN, 50 GM [id number] 00:00:00 * Test Item Value Reference Range Interpretation Comme michael GLUCOSE 1 HR POST 50 GM (raghavendra t code = 2005) 121 MG/DL Peter LoftonTRICHOMONAS, URINE, [id number] 00:00:00* Test Item Value Reference Range Interpretation Comme nts TRICHOMONAS, NAAT, URINE (te st code = 11687) NEGATIVE Peter LoftonCT/NG, TMA, [id number] 00:00:00* Test Item Value Reference Range Interpretation Comme nts CHLAMYDIA, NAAT, URINE (test code = 61158) NEGATIVE GONORRHEA, NAAT, URINE (test code = 75829) NEGATIVE Peter LoftonOBSTETRIC PANEL + [id number] 00:00:00* Test Item Value Reference Range Interpretation [...] K/UL ABS NUCLEATED RBCS (test code = 38785) 0.00 K/UL BLOOD TYPE AND RH (test code = 3901) O POSITIVE ANTIBODY SCREEN (test code = 3902) NEGATIVE RUBELLA ANTIBODY SCREEN (test code = 4600) 379 IU/ML RUBELLA IgG INTERP (test code = 90379) REACTIVE HEPATITIS B SURF AG (test code = 2739) NON-REACTIVE RPR (test code = 28193) NON-REACTIVE RPR TITER (test code = 3500) NOT INDIC. TITER HIV 1/2 4TH GEN, RFLX CONF (test code = 3514) NON-REACTIVE Peter LoftonDRUG ABUSE PANEL 10 WITH [id number] 00:00:00* Test Item Value Reference Range Interpretation Comme nts AMPHETAMINES (test code = 3201) NEGATIVE BARBITURATES (test code = 3202) NEGATIVE BENZODIAZEPINES (test code = 3203) NEGATIVE CANNABINOIDS (test code = 3204) NEGATIVE COCAINE METABOLITE (test cod e = 3205) NEGATIVE OPIATES (test code = 3209) NEGATIVE OXYCODONE (test code = 12020) NEGATIVE PHENCYCLIDINE (test code = 3210) NEGATIVE METHADONE (test code = 3207) NEGATIVE BUPRENORPHINE (test code = 46591) NEGATIVE SOURCE (test code = 526064) URINE Peter LoftonVARICELLA ZOSTER [id number] 00:00:00* Test Item Value Reference Range Interpretation Comme nts VARICELLA ZOSTER IgG (test c ode = 58770) >2000 INDEX Peter LoftonHEPATITIS C REFLEX [id number] 00:00:00* Test Item Value Reference Range Interpretation Comme nts HEPATITIS C ANTIBODY (test c ode = 4675) NON-REACTIVE Peter LoftonGLUCOSE, 1 HR, GESTATIONAL SCREEN, 50 GM [id number] 00:00:00 * Test Item Value Reference Range Interpretation Comme nts GLUCOSE 1 HR POST 50 GM (raghavendra t code = 2005) 121 MG/DL Peter LoftonTRICHOMONAS, URINE, [id number] 00:00:00* Test Item Value Reference Range Interpretation Comme nts TRICHOMONAS, NAAT, URINE (te st code = 45008) NEGATIVE Peter LoftonCT/NG, TMA, [id number] 00:00:00* Test Item Value Reference Range Interpretation Comme nts CHLAMYDIA, NAAT, URINE (test code = 54415) NEGATIVE GONORRHEA, NAAT, URINE (test code = 72165) NEGATIVE Peter LoftonOBSTETRIC PANEL + [id number] 00:00:00* Test Item Value Reference Range Interpretation [...] K/UL ABS NUCLEATED RBCS (test code = 34336) 0.00 K/UL BLOOD TYPE AND RH (test code = 3901) O POSITIVE ANTIBODY SCREEN (test code = 3902) NEGATIVE RUBELLA ANTIBODY SCREEN (test code = 4600) 379 IU/ML RUBELLA IgG INTERP (test code = 94169) REACTIVE HEPATITIS B SURF AG (test code = 2739) NON-REACTIVE RPR (test code = 06998) NON-REACTIVE RPR TITER (test code = 3500) NOT INDIC. TITER HIV 1/2 4TH GEN, RFLX CONF (test code = 3514) NON-REACTIVE Peter LoftonDRUG ABUSE PANEL 10 WITH [id number] 00:00:00* Test Item Value Reference Range Interpretation Comme nts AMPHETAMINES (test code = 3201) NEGATIVE BARBITURATES (test code = 3202) NEGATIVE BENZODIAZEPINES (test code = 3203) NEGATIVE CANNABINOIDS (test code = 3204) NEGATIVE COCAINE METABOLITE (test cod e = 3205) NEGATIVE OPIATES (test code = 3209) NEGATIVE OXYCODONE (test code = 14308) NEGATIVE PHENCYCLIDINE (test code = 3210) NEGATIVE METHADONE (test code = 3207) NEGATIVE BUPRENORPHINE (test code = 85988) NEGATIVE SOURCE (test code = 838225) URINE Peter LoftonVARICELLA ZOSTER [id number] 00:00:00* Test Item Value Reference Range Interpretation Comme nts VARICELLA ZOSTER IgG (test c ode = 04915) >2000 INDEX Peter LoftonHEPATITIS C REFLEX [id number] 00:00:00* Test Item Value Reference Range Interpretation Comme nts HEPATITIS C ANTIBODY (test c ode = 4675) NON-REACTIVE Peter LoftonGLUCOSE, 1 HR, GESTATIONAL SCREEN, 50 GM [id number] 00:00:00 * Test Item Value Reference Range Interpretation Comme nts GLUCOSE 1 HR POST 50 GM (raghavendra t code = 2005) 121 MG/DL Peter LoftonTRICHOMONAS, URINE, [id number] 00:00:00* Test Item Value Reference Range Interpretation Comme nts TRICHOMONAS, NAAT, URINE (te st code = 31584) NEGATIVE Peter LoftonCT/NG, TMA, [id number] 00:00:00* Test Item Value Reference Range Interpretation Comme nts CHLAMYDIA, NAAT, URINE (test code = 35990) NEGATIVE GONORRHEA, NAAT, URINE (test code = 40081) NEGATIVE Peter LoftonOBSTETRIC PANEL + [id number] 00:00:00* Test Item Value Reference Range Interpretation [...] K/UL ABS NUCLEATED RBCS (test code = 86380) 0.00 K/UL BLOOD TYPE AND RH (test code = 3901) O POSITIVE ANTIBODY SCREEN (test code = 3902) NEGATIVE RUBELLA ANTIBODY SCREEN (test code = 4600) 379 IU/ML RUBELLA IgG INTERP (test code = 24257) REACTIVE HEPATITIS B SURF AG (test code = 2739) NON-REACTIVE RPR (test code = 07049) NON-REACTIVE RPR TITER (test code = 3500) NOT INDIC. TITER HIV 1/2 4TH GEN, RFLX CONF (test code = 3514) NON-REACTIVE Peter LoftonDRUG ABUSE PANEL 10 WITH [id number] 00:00:00* Test Item Value Reference Range Interpretation Comme nts AMPHETAMINES (test code = 3201) NEGATIVE BARBITURATES (test code = 3202) NEGATIVE BENZODIAZEPINES (test code = 3203) NEGATIVE CANNABINOIDS (test code = 3204) NEGATIVE COCAINE METABOLITE (test cod e = 3205) NEGATIVE OPIATES (test code = 3209) NEGATIVE OXYCODONE (test code = 80404) NEGATIVE PHENCYCLIDINE (test code = 3210) NEGATIVE METHADONE (test code = 3207) NEGATIVE BUPRENORPHINE (test code = 68720) NEGATIVE SOURCE (test code = 218974) URINE Peter LoftonVARICELLA ZOSTER [id number] 00:00:00* Test Item Value Reference Range Interpretation Comme michael VARICELLA ZOSTER IgG (test c ode = 34349) >2000 INDEX Peter LoftonHEPATITIS C REFLEX [id number] 00:00:00* Test Item Value Reference Range Interpretation Comme michael HEPATITIS C ANTIBODY (test c ode = 4675) NON-REACTIVE Peter LoftonGLUCOSE, 1 HR, GESTATIONAL SCREEN, 50 GM [id number] 00:00:00 * Test Item Value Reference Range Interpretation Comme michael GLUCOSE 1 HR POST 50 GM (raghavendra t code = 2006) 121 MG/DL Peter LoftonTRICHOMONAS, URINE, [id number] 00:00:00* Test Item Value Reference Range Interpretation Comme nts TRICHOMONAS, NAAT, URINE (te st code = 78854) NEGATIVE Peter LoftonCT/NG, TMA, [id number] 00:00:00* Test Item Value Reference Range Interpretation Comme nts CHLAMYDIA, NAAT, URINE (test code = 22035) NEGATIVE GONORRHEA, NAAT, URINE (test code = 73031) NEGATIVE Peter LoftonOBSTETRIC PANEL + [id number] 00:00:00* Test Item Value Reference Range Interpretation [...] K/UL ABS NUCLEATED RBCS (test code = 59523) 0.00 K/UL BLOOD TYPE AND RH (test code = 3901) O POSITIVE ANTIBODY SCREEN (test code = 3902) NEGATIVE RUBELLA ANTIBODY SCREEN (test code = 4600) 379 IU/ML RUBELLA IgG INTERP (test code = 69239) REACTIVE HEPATITIS B SURF AG (test code = 2739) NON-REACTIVE RPR (test code = 90278) NON-REACTIVE RPR TITER (test code = 3500) NOT INDIC. TITER HIV 1/2 4TH GEN, RFLX CONF (test code = 3514) NON-REACTIVE Peter LoftonDRUG ABUSE PANEL 10 WITH [id number] 00:00:00* Test Item Value Reference Range Interpretation Comme nts AMPHETAMINES (test code = 3201) NEGATIVE BARBITURATES (test code = 3202) NEGATIVE BENZODIAZEPINES (test code = 3203) NEGATIVE CANNABINOIDS (test code = 3204) NEGATIVE COCAINE METABOLITE (test cod e = 3205) NEGATIVE OPIATES (test code = 3209) NEGATIVE OXYCODONE (test code = 75749) NEGATIVE PHENCYCLIDINE (test code = 3210) NEGATIVE METHADONE (test code = 3207) NEGATIVE BUPRENORPHINE (test code = 21368) NEGATIVE SOURCE (test code = 548616) URINE Peter LoftonVARICELLA ZOSTER [id number] 00:00:00* Test Item Value Reference Range Interpretation Comme nts VARICELLA ZOSTER IgG (test c ode = 63081) >2000 INDEX Peter LoftonHEPATITIS C REFLEX [id number] 00:00:00* Test Item Value Reference Range Interpretation Comme nts HEPATITIS C ANTIBODY (test c ode = 4675) NON-REACTIVE Peter LoftonGLUCOSE, 1 HR, GESTATIONAL SCREEN, 50 GM [id number] 00:00:00 * Test Item Value Reference Range Interpretation Comme nts GLUCOSE 1 HR POST 50 GM (raghavendra t code = 2005) 121 MG/DL Peter LoftonTRICHOMONAS, URINE, [id number] 00:00:00* Test Item Value Reference Range Interpretation Comme nts TRICHOMONAS, NAAT, URINE (te st code = 77579) NEGATIVE Peter LoftonPOCT [id number] 15:49:00* Test Item Value Reference Range Interpretation Comme nts POCT PREG (test code = 1605) Positive On board controls acceptable with C Line (test code = 3574) Yes POCT PREG LOT # (test code = 3575) POCT PREG TEST DATE ( test code = 3576) [facility] [id number] 15:40:00* Test Item Value Reference Range Interpretation Comme nts POCT PREG (test code = 1605) Positive On board controls acceptable with C Line (test code = 3574) Yes POCT PREG LOT # (test code = 3575) POCT PREG TEST DATE ( test code = 3576) Lab Interpretation (test cod e = 77581-6) Abnormal [facility]-AB WITH [id number] 11:31:52* Test Item Value Reference Range Interpretation Comme nts HIV Semi-quantitative (test code = 80368-5) Negative Negative ASHLEE (test code = ASHLEE) Non-reactive for HIV-1 antigen and HIV-1/HIV-2 antibodies. ?No laboratory evidence of HIV infection. ?Repeat in 2-4 weeks if acute HIV infection is suspected. [facility], BLOOD [id number] 10:13:07 * Test Item Value Reference Range Interpretation Comme nts ABO & RH (test code = 20) O POSITIVE Performed at [facility] B Laboratory Services - [facility] Blood [address] [place] [address]Goay Free: [phone] No. [id number] IAT (test code = 1185) Negative Performed at [facility] B Laboratory Services [facility] Blood [address] [address]Fnep Free: [phone] No. [id number] [facility] [id number] 08:18:32* Test Item Value Reference Range Interpretation Comme nts HCV Ab (test code = 19992-5) Negative HCV Semi-Quantitative (test code = 07744-4) [facility] SURFACE [id number] 08:01:30 * Test Item Value Reference Range Interpretation Comme nts HBsAg Semi-Quantitative (raghavendra t code = 5195-3) Negative Negative [facility] BETA HCG [id number] 07:56:47* Test Item Value Reference Range Interpretation Comme nts BETA HCG (test code = 9026089135) See_Comment [[employer]] The system which generated this result transmitted reference range: Non- female and male patients: <5 mIU/mL. The reference range was not used to interpret this result as normal/abnormal. ASHLEE (test code = ASHLEE) Gestational Age ?Range (mIU/mL) 1-10 ?Weeks ?[id number] Weeks ?07727-19843726-73 Weeks ?1735-69650779-64 Weeks ?[phone] Biotin has been reported to cause a negative bias, interpret results relative to patient's use of biotin. [facility] WITH [id number] 06:34:02* Test Item Value Reference Range Interpretation Comme nts WBC (test code = 6690-2) See_Comment [[employer]] The system which generated this result transmitted reference range: 4.30 - 11.10 10*3/?L. The reference range was not used to interpret this result as normal/abnormal. RBC (test code = 789-8) See_Comment [[employer]] The system which generated this result [...] g/dL 31.6-35.1 L RDW-SD (test code = 23417-7) 48.1 fL 39.0-49.9 RDW-CV (test code = 788-0) 17.2 % 12.0-15.5 H PLT (test code = 777-3) See_Comment [Automated messa ge] The system which generated this result transmitted reference range: 166 - 358 10*3/?L. The reference range was not used to interpret this result as normal/abnormal. MPV (test code = 85314-5) 11.3 fL 9.5-12.9 NRBC/100 WBC (test code = 4871038879) See_Comment [Automated [employer] ssage] The system which generated this result transmitted reference range: 0.0 - 10.0 /100 WBCs. The reference range was not used to interpret this result as normal/abnormal. NRBC x10^3 (test code = 1572161470) See_Comment [Automated messa ge] The system which generated this result transmitted reference range: 10*3/?L. The reference range was not used to interpret this result as normal/abnormal. GRAN MAT (NEUT) % (test code = 770-8) 70.4 % IMM GRAN % (test code = 2815534541) 0.60 % LYMPH % (test code = 736-9) 21.6 % MONO % (test code = 5905-5) 5.7 % EOS % (test code = 713-8) 1.1 % BASO % (test code = 706-2) 0.6 % GRAN MAT x10^3(ANC) (test code = 0679107186) 7.10 10*3/uL 1.88-7.09 H IMM GRAN x10^3 (test code = 5247587648) 0.06 10*3/uL 0.00-0.06 LYMPH x10^3 (test code = 731-0) 2.18 10*3/uL 1.32-3.29 MONO x10^3 (test code = 742-7) 0.57 10*3/uL 0.33-0.92 EOS x10^3 (test code = 711-2) 0.11 10*3/uL 0.03-0.39 BASO x10^3 (test code = 704-7) 0.06 10*3/uL 0.01-0.07 Lab Interpretation (test code = 99920-4) Abnormal [facility] URINALYSIS W/O SPECIFIC [id number] 20:30:00* Test Item Value Reference Range Interpretation [...] = 3257) Large Negative - Negati ve [facility] URINALYSIS W/O SPECIFIC [id number] 20:30:00* Test Item Value Reference Range Interpretation [...] = 3257) Large Negative - Negati ve [facility] [id number] 20:29:00* Test Item Value Reference Range Interpretation Comme nts POCT PREG (test code = 1605) Positive On board controls acceptable with C Line (test code = 3574) Yes POCT PREG LOT # (test code = 3575) POCT PREG TEST DATE ( test code = 3576) [facility] [id number] 20:29:00* Test Item Value Reference Range Interpretation Comme nts POCT PREG (test code = 1605) Positive On board controls acceptable with C Line (test code = 3574) Yes POCT PREG LOT # (test code = 3575) POCT PREG TEST DATE ( test code = 3576) [facility] BHCG (QUANTITATIVE)2022-09-20 17:15:40* Test Item Value Reference Range Interpretation Comme nts BETA HCG (test code = 6236671434) See_Comment [Automated messa ge] The system which generated this result transmitted reference range: Non- female and male patients: <5 mIU/mL. The reference range was not used to interpret this result as normal/abnormal. ASHLEE (test code = ASHLEE) Gestational Age ?Range (mIU/mL) 1-10 ?Weeks ?41-33561411-69 Weeks ?93159-33386830-84 Weeks ?8245-79430611-89 Weeks ?[phone] Biotin has been reported to cause a negative bias, interpret results relative to patient's use of biotin. [facility], [id number] 16:16:57* Test Item Value Reference Range Interpretation Comme nts PREG SERUM (test code = 2489641528) Positive ASHLEE (test code = ASHLEE) Positive greater t lewis or equal to 10 IU/L hCG. [facility] MarshallACTIVATED PARTIAL THRMPLAS [id number] 16:14:06* Test Item Value Reference Range Interpretation Comme nts APTT Patient (test code = 3173-2) See_Comment [Automated message] The system which generated this result transmitted reference range: 23 - 38 Seconds. The reference range was not used to interpret this result as normal/abnormal. ASHLEE (test code = ASHLEE) The [facility] patient population mean normal value for aPTT is 30 seconds. Lab Interpretation (test code = 38612-4) Normal [facility] MarshallPROTHROMBIN TIME / [id number] 16:12:09* Test Item Value Reference Range Interpretation Comme nts PROTIME PATIENT (test code = 5964-2) See_Comment [[employer]] The system which generated this result transmitted reference range: 12.0 - 14.7 Seconds. The reference range was not used to interpret this result as normal/abnormal. INR (test code = 6301-6) Normal INR <1.1; Warfarin Therapeutic range 2.0 to 3.0 or 2.5 to 3.5, depending upon the indications. Lab Interpretation (test code = 56303-2) Normal [facility] METABOLIC PANEL ([id number])2022-09-20 15:58:03* Test Item Value Reference Range Interpretation Comme nts NA (test code = 8555139128) 136 mmol/L 135-145 K (test code = 0579958397) 4.1 mmol/L 3.5-5.0 CL (test code = 0458791330) 102 mmol/L 98-108 CO2 TOTAL (test code = 3002997323) 25 mmol/L 23-31 AGAP (test code = 2992979327) 2-16 BUN (test code = 0410688354) 9 mg/dL 7-23 GLUCOSE (test code = 3218888925) 94 mg/dL 70-110 CREATININE (test code = 5479988459) 0.48 mg/dL 0.50-1.04 L TOTAL BILI (test code = 4440943460) 0.4 mg/dL 0.1-1.1 CALCIUM (test code = 6366958983) 8.8 mg/dL 8.6-10.6 T PROTEIN (test code = 9940033344) 7.4 g/dL 6.3-8.2 ALBUMIN (test code = 1966041407) 4.5 g/dL 3.5-5.0 ALK PHOS (test code = 7053486018) 77 U/L 34-122 ALTv (test code = 1742-6) 15 U/L 5-35 AST(SGOT) (test code = 0002901766) 19 U/L 13-40 eGFR (test code = 8007975702) mL/min/1.73m2 ASHLEE (test code = ASHLEE) Association [...] imaging tests). Lab Interpretation (test code = 09030-1) Abnormal [facility]2023-[facility] 15:58:03* Test Item Value Reference Range Interpretation Comme nts LIPASE (test code = 1624700598) 74 U/L 0-220 Lab Interpretation (test cod e = 58123-9) Normal [facility] WITH [id number] 15:56:47* Test Item Value Reference Range Interpretation Comme nts WBC (test code = 6690-2) See_Comment [Automated takokat] The system which generated this result transmitted reference range: 4.30 - 11.10 10*3/?L. The reference range was not used to interpret this result as normal/abnormal. RBC (test code = 789-8) See_Comment [[employer]] The system which generated this result [...] g/dL 31.6-35.1 L RDW-SD (test code = 39878-9) 47.3 fL 39.0-49.9 RDW-CV (test code = 788-0) 17.0 % 12.0-15.5 H PLT (test code = 777-3) See_Comment [[employer]] The system which generated this result transmitted reference range: 166 - 358 10*3/?L. The reference range was not used to interpret this result as normal/abnormal. MPV (test code = 22604-7) 10.5 fL 9.5-12.9 NRBC/100 WBC (test code = 5666019264) See_Comment [Automated [employer] ssage] The system which generated this result transmitted reference range: 0.0 - 10.0 /100 WBCs. The reference range was not used to interpret this result as normal/abnormal. NRBC x10^3 (test code = 7689194956) See_Comment [[employer]] The system which generated this result transmitted reference range: 10*3/?L. The reference range was not used to interpret this result as normal/abnormal. GRAN MAT (NEUT) % (test code = 770-8) 58.6 % IMM GRAN % (test code = 5092028004) 0.80 % LYMPH % (test code = 736-9) 30.9 % MONO % (test code = 5905-5) 6.6 % EOS % (test code = 713-8) 2.4 % BASO % (test code = 706-2) 0.7 % GRAN MAT x10^3(ANC) (test code = 1502361723) 5.29 10*3/uL 1.88-7.09 IMM GRAN x10^3 (test code = 0065622782) 0.07 10*3/uL 0.00-0.06 H LYMPH x10^3 (test code = 731-0) 2.79 10*3/uL 1.32-3.29 MONO x10^3 (test code = 742-7) 0.60 10*3/uL 0.33-0.92 EOS x10^3 (test code = 711-2) 0.22 10*3/uL 0.03-0.39 BASO x10^3 (test code = 704-7) 0.06 10*3/uL 0.01-0.07 Lab Interpretation (test code = 68924-1) Abnormal [facility] WITH [id number] 23:41:07* Test Item Value Reference Range Interpretation Comme nts WBC (test code = 6690-2) See_Comment [[employer]] The system which generated this result transmitted reference range: 4.30 - 11.10 10*3/?L. The reference range was not used to interpret this result as normal/abnormal. RBC (test code = 789-8) See_Comment [[employer]] The system which generated this result [...] g/dL 31.6-35.1 L RDW-SD (test code = 73346-2) 40.8 fL 39.0-49.9 RDW-CV (test code = 788-0) 15.0 % 12.0-15.5 PLT (test code = 777-3) See_Comment H [Automated messa ge] The system which generated this result transmitted reference range: 166 - 358 10*3/?L. The reference range was not used to interpret this result as normal/abnormal. MPV (test code = 99126-1) 10.5 fL 9.5-12.9 NRBC/100 WBC (test code = 0864129738) See_Comment [Automated me ssage] The system which generated this result transmitted reference range: 0.0 - 10.0 /100 WBCs. The reference range was not used to interpret this result as normal/abnormal. NRBC x10^3 (test code = 9975169270) <0.01 See_Comment [Automated messa ge] The system which generated this result transmitted reference range: 10*3/?L. The reference range was not used to interpret this result as normal/abnormal. GRAN MAT (NEUT) % (test code = 770-8) 83.2 % IMM GRAN % (test code = 8913496578) 0.60 % LYMPH % (test code = 736-9) 8.5 % MONO % (test code = 5905-5) 6.6 % EOS % (test code = 713-8) 0.8 % BASO % (test code = 706-2) 0.3 % GRAN MAT x10^3(ANC) (test code = 8273943987) 7.73 10*3/uL 1.88-7.09 H IMM GRAN x10^3 (test code = 2375660145) 0.06 10*3/uL 0.00-0.06 LYMPH x10^3 (test code = 731-0) 0.79 10*3/uL 1.32-3.29 L MONO x10^3 (test code = 742-7) 0.61 10*3/uL 0.33-0.92 EOS x10^3 (test code = 711-2) 0.07 10*3/uL 0.03-0.39 BASO x10^3 (test code = 704-7) 0.03 10*3/uL 0.01-0.07 Lab Interpretation (test code = 78501-2) Abnormal [facility] (23428)2021-11-09 23:32:45* Test Item Value Reference Range Interpretation Comme nts NA (test code = 4554209350) 135 mmol/L 135-145 K (test code = 3292246894) 4.3 mmol/L 3.5-5.0 CL (test code = 1265098110) 100 mmol/L 98-108 CO2 TOTAL (test code = 8927431613) 26 mmol/L 23-31 AGAP (test code = 4143258122) 2-16 BUN (test code = 6153560012) 8 mg/dL 7-23 GLUCOSE (test code = 0473227863) 98 mg/dL 70-110 CREATININE (test code = 0545568916) 0.56 mg/dL 0.50-1.04 TOTAL BILI (test code = 9511627343) 0.5 mg/dL 0.1-1.1 CALCIUM (test code = 9805333939) 8.7 mg/dL 8.6-10.6 T PROTEIN (test code = 2100195106) 7.7 g/dL 6.3-8.2 ALBUMIN (test code = 8883373032) 4.7 g/dL 3.5-5.0 ALK PHOS (test code = 8852687358) 82 U/L 34-122 ALTv (test code = 1742-6) 14 U/L 5-35 AST(SGOT) (test code = 7189095592) 34 U/L 13-40 eGFR (test code = 3450226116) mL/min/1.73m2 ASHLEE (test code = ASHLEE) Association [...] tests). [facility] 23:32:25* Test Item Value Reference Range Interpretation Comme nts LIPASE (test code = 8780244549) 70 U/L 0-220 Lab Interpretation (test cod e = 71361-1) Normal [facility] [id number] 23:21:00* Test Item Value Reference Range Interpretation Comme nts POCT PREG (test code = 1605) NEGATIVE On board controls acceptable with C Line (test code = 3574) PRESENT POCT PREG LOT # (test code = 3575) [id number] POCT PREG TEST DATE ( test code = 3576) Lab Interpretation (test cod e = 19884-2) Normal [facility]OL[facility] PAN[facility] (NA, K, CL, CO2, GLUCOSE, BUN, CREATININE, CA)2021-01-29 11:56:16* Test Item Value Reference Range Interpretation Comme nts NA (test code = 3738624659) 140 mmol/L 135-145 K (test code = 1202941454) 3.4 mmol/L 3.5-5.0 L CL (test code = 8275847423) 106 mmol/L 98-108 CO2 TOTAL (test code = 8832246969) 27 mmol/L 23-31 AGAP (test code = 6342727462) 2-16 BUN (test code = 5014500880) 12 mg/dL 7-23 GLUCOSE (test code = 0957403024) 90 mg/dL 70-110 CREATININE (test code = 3260942494) 0.88 mg/dL 0.50-1.04 CALCIUM (test code = 8468030295) 8.6 mg/dL 8.6-10.6 eGFR (test code = 7869135104) mL/min/1.73m2 ASHLEE (test code = ASHLEE) Association [...] imaging tests). Lab Interpretation (test code = 40099-9) Abnormal [facility] WITH [id number] 11:26:15* Test Item Value Reference Range Interpretation Comme nts WBC (test code = 6690-2) See_Comment [Automated [employer]at] The system which generated this result transmitted reference range: 4.30 - 11.10 10*3/?L. The reference range was not used to interpret this result as normal/abnormal. RBC (test code = 789-8) See_Comment L [Automated [employer]okat] The system which generated this result transmitted [...] g/dL 31.6-35.1 L RDW-SD (test code = 28873-2) 42.7 fL 39.0-49.9 RDW-CV (test code = 788-0) 14.1 % 12.0-15.5 PLT (test code = 777-3) See_Comment [[employer]] The system which generated this result transmitted reference range: 166 - 358 10*3/?L. The reference range was not used to interpret this result as normal/abnormal. MPV (test code = 27031-4) 10.5 fL 9.5-12.9 NRBC/100 WBC (test code = 2148233061) See_Comment [Automated [employer]] The system which generated this result transmitted reference range: 0.0 - 10.0 /100 WBCs. The reference range was not used to interpret this result as normal/abnormal. NRBC x10^3 (test code = 2376971583) <0.01 See_Comment [[employer]] The system which generated this result transmitted reference range: 10*3/?L. The reference range was not used to interpret this result as normal/abnormal. GRAN MAT (NEUT) % (test code = 770-8) 68.3 % IMM GRAN % (test code = 5504948633) 0.70 % LYMPH % (test code = 736-9) 19.6 % MONO % (test code = 5905-5) 7.1 % EOS % (test code = 713-8) 3.8 % BASO % (test code = 706-2) 0.5 % GRAN MAT x10^3(ANC) (test code = [id number]) 6.23 10*3/uL 1.88-7.09 IMM GRAN x10^3 (test code = [id number]) 0.06 10*3/uL 0.00-0.06 LYMPH x10^3 (test code = 731-0) 1.79 10*3/uL 1.32-3.29 MONO x10^3 (test code = 742-7) 0.65 10*3/uL 0.33-0.92 EOS x10^3 (test code = 711-2) 0.35 10*3/uL 0.03-0.39 BASO x10^3 (test code = 704-7) 0.05 10*3/uL 0.01-0.07 Lab Interpretation (test code = 58680-4) [facility] Draw no more than 60 minutes before the 1100 dose.2021-01-29 05:02:45* Test Item Value Reference Range Interpretation Comme nts VANCO TROUGH (test code = 9952616916) 7.6 ug/mL 10.0-20.0 L ASHLEE (test code = ASHLEE) Toxic Range: ?>20 ug/mL 15-20 ug/mL is recommended for severe infection or when Vancomycin AURA is greater than or equal to 2. Lab Interpretation (test code = 04130-0) [facility] (NA, K, CL, CO2, GLUCOSE, BUN, CREATININE, CA)2021-01-28 11:50:40* Test Item Value Reference Range Interpretation Comme nts NA (test code = 9142754296) 138 mmol/L 135-145 K (test code = 4556698114) 4.2 mmol/L 3.5-5.0 CL (test code = 6570795797) 104 mmol/L 98-108 CO2 TOTAL (test code = 8430940660) 25 mmol/L 23-31 AGAP (test code = 7686154874) 2-16 BUN (test code = 1267674106) 7 mg/dL 7-23 GLUCOSE (test code = 6041292047) 147 mg/dL 70-110 H CREATININE (test code = 9448238980) 0.44 mg/dL 0.50-1.04 L CALCIUM (test code = 5000532713) 9.0 mg/dL 8.6-10.6 eGFR (test code = 3137889828) mL/min/1.73m2 ASHLEE (test code = ASHLEE) Association [...] imaging tests). Lab Interpretation (test code = 89082-0) Abnormal [facility] Metabolic Panel (NA, K, CL, CO2, GLUCOSE, BUN, CREATININE, CA)2021-01-28 11:50:40* Test Item Value Reference Range Interpretation Comme nts NA (test code = 5902265670) 138 mmol/L 135-145 K (test code = 8489596861) 4.2 mmol/L 3.5-5.0 CL (test code = 6311155123) 104 mmol/L 98-108 CO2 TOTAL (test code = 6375122393) 25 mmol/L 23-31 AGAP (test code = 3625778165) 2-16 BUN (test code = 5692448555) 7 mg/dL 7-23 GLUCOSE (test code = 4342636364) 147 mg/dL 70-110 H CREATININE (test code = 3087093259) 0.44 mg/dL 0.50-1.04 L CALCIUM (test code = 9700128467) 9.0 mg/dL 8.6-10.6 eGFR (test code = 0551086568) mL/min/1.73m2 ASHLEE (test code = ASHLEE) Association [...] imaging tests). Lab Interpretation (test code = 62888-6) Abnormal [facility] with Fhjqmrmwueqd0828-08-53 11:08:37* Test Item Value Reference Range Interpretation Comme nts WBC (test code = 6690-2) See_Comment H [Automated [employer]] The system which generated this result transmitted [...] g/dL 31.6-35.1 L RDW-SD (test code = 89512-5) 41.9 fL 39.0-49.9 RDW-CV (test code = 788-0) 13.6 % 12.0-15.5 PLT (test code = 777-3) See_Comment H [Automated messa ge] The system which generated this result transmitted reference range: 166 - 358 10*3/?L. The reference range was not used to interpret this result as normal/abnormal. MPV (test code = 46593-2) 10.6 fL 9.5-12.9 NRBC/100 WBC (test code = 1240930484) See_Comment [Automated [employer] ssage] The system which generated this result transmitted reference range: 0.0 - 10.0 /100 WBCs. The reference range was not used to interpret this result as normal/abnormal. NRBC x10^3 (test code = 6628303138) <0.01 See_Comment [Automated messa ge] The system which generated this result transmitted reference range: 10*3/?L. The reference range was not used to interpret this result as normal/abnormal. GRAN MAT (NEUT) % (test code = 770-8) 87.6 % IMM GRAN % (test code = 1181891352) 0.40 % LYMPH % (test code = 736-9) 8.8 % MONO % (test code = 5905-5) 2.8 % EOS % (test code = 713-8) 0.1 % BASO % (test code = 706-2) 0.3 % GRAN MAT x10^3(ANC) (test code = 5842924335) 9.81 10*3/uL 1.88-7.09 H IMM GRAN x10^3 (test code = 2645856965) 0.05 10*3/uL 0.00-0.06 LYMPH x10^3 (test code = 731-0) 0.98 10*3/uL 1.32-3.29 L MONO x10^3 (test code = 742-7) 0.31 10*3/uL 0.33-0.92 L EOS x10^3 (test code = 711-2) <0.03 0.03-0.39 L BASO x10^3 (test code = 704-7) 0.03 10*3/uL 0.01-0.07 Lab Interpretation (test code = 37711-9) Abnormal [facility] with Usklfbrbtfor1460-07-28 11:08:37* Test Item Value Reference Range Interpretation [...] g/dL 31.6-35.1 L RDW-SD (test code = 91174-4) 41.9 fL 39.0-49.9 RDW-CV (test code = 788-0) 13.6 % 12.0-15.5 PLT (test code = 777-3) See_Comment H [Automated messa ge] The system which generated this result transmitted reference range: 166 - 358 10*3/?L. The reference range was not used to interpret this result as normal/abnormal. MPV (test code = 61034-9) 10.6 fL 9.5-12.9 NRBC/100 WBC (test code = 5164876125) See_Comment [Automated me ssage] The system which generated this result transmitted reference range: 0.0 - 10.0 /100 WBCs. The reference range was not used to interpret this result as normal/abnormal. NRBC x10^3 (test code = 7906349200) <0.01 See_Comment [Automated messa ge] The system which generated this result transmitted reference range: 10*3/?L. The reference range was not used to interpret this result as normal/abnormal. GRAN MAT (NEUT) % (test code = 770-8) 87.6 % IMM GRAN % (test code = 3931600237) 0.40 % LYMPH % (test code = 736-9) 8.8 % MONO % (test code = 5905-5) 2.8 % EOS % (test code = 713-8) 0.1 % BASO % (test code = 706-2) 0.3 % GRAN MAT x10^3(ANC) (test code = 4939233255) 9.81 10*3/uL 1.88-7.09 H IMM GRAN x10^3 (test code = 6375068867) 0.05 10*3/uL 0.00-0.06 LYMPH x10^3 (test code = 731-0) 0.98 10*3/uL 1.32-3.29 L MONO x10^3 (test code = 742-7) 0.31 10*3/uL 0.33-0.92 L EOS x10^3 (test code = 711-2) <0.03 0.03-0.39 L BASO x10^3 (test code = 704-7) 0.03 10*3/uL 0.01-0.07 Lab Interpretation (test code = 23617-3) Abnormal [facility] 21:23:47Gian Negrete CRNA ? ? 01/27/2021 ?4:24 PMIntubationUrgency: elective Airway not difficult General Information and Staff Patient location during procedure: ORResident/WAREHOUSE PULLER: Gian Negrete CRNAPerformed:resident/WAREHOUSE PULLER Indications and Patient ConditionIndications for airway management: anesthesiaSpontaneous Ventilation: absentSedation level: deepPreoxygenated: yesPatient position: sniffingMILS maintained throughoutMask difficulty assessment: 0 - not attempted Final Airway DetailsFinal airway type: supraglottic airway Successful airway: Supraglottic airway: igel.Size 3 Number of attempts at approach: 1 Additional CommentsAirway dry General acute hospitalCT PELVIS W CONTRAST 2021-01-27 12:56:13A 6 cm right subcutaneous gluteal collection with layering fat, mayrepresent seroma or hematoma. However superimposed infection cannot beruled out. Clinical correlation is recommended. Preliminary Report Dictated by Resident: Cadence Thompson ?MD. Cristiane, have reviewed this study and agree with theabove report.EXAM: CT PELVIS WITH CONTRAST HISTORY: had a butt-lift surgery in [facility] 12/23/20 and that it wasfeeling fine [...] gluteus prashant muscle. [facility], Radiant Results Inft - 01/27/2021 7:57 AM CDT EXAM: CT PELVIS WITH CONTRASTHISTORY: had a butt-lift surgery in [place] on 12/23/20 and that it wasfeeling fine [...] theabove report.[facility] W RZACWNSD8046-30-60 12:56:13A 6 cm right subcutaneous gluteal collection with layering fat, mayrepresent seroma or hematoma. However superimposed infection cannot beruled out. Clinical correlation is recommended. Preliminary Report Dictated by Resident: Caednce Thompson MD., have reviewed this study and agree with theabove report.EXAM: CT PELVIS WITH CONTRAST HISTORY: [place] and that it wasfeeling fine up [...] WITH CONTRASTHISTORY: had a butt-lift surgery in [place] on 12/23/20 and that it wasfeeling fine [...] theabove report.[facility] (61014) (ALB,T.PRO,BILI T,BU/BC,ALT,AST,ALK PHOS)2021-01-27 06:43:32* Test Item Value Reference Range Interpretation Comme nts TOTAL BILI (test code = 8115138264) 0.3 mg/dL 0.1-1.1 BILI UNCON (test code = 9912412523) 0.1 mg/dL 0.1-1.1 BILI CONJ (test code = 4422231272) 0.0 mg/dL 0.0-0.3 T PROTEIN (test code = 1034846941) 7.0 g/dL 6.3-8.2 ALBUMIN (test code = 3191569140) 3.8 g/dL 3.5-5.0 ALK PHOS (test code = 5095934501) 114 U/L 34-122 ALTv (test code = 1742-6) 16 U/L 5-35 AST(SGOT) (test code = 5482978067) 77 U/L 13-40 H Lab Interpretation (test cod e = 93494-8) Abnormal [facility] (10376[facility] (ALB,T.PRO,BILI T,BU/BC,ALT,AST,ALK PHOS)2021-01-27 06:43:32* Test Item Value Reference Range Interpretation Comme nts TOTAL BILI (test code = 5372772140) 0.3 mg/dL 0.1-1.1 BILI UNCON (test code = 9371686617) 0.1 mg/dL 0.1-1.1 BILI CONJ (test code = 0559188550) 0.0 mg/dL 0.0-0.3 T PROTEIN (test code = 4326498466) 7.0 g/dL 6.3-8.2 ALBUMIN (test code = 3703839904) 3.8 g/dL 3.5-5.0 ALK PHOS (test code = 0050309784) 114 U/L 34-122 ALTv (test code = 1742-6) 16 U/L 5-35 AST(SGOT) (test code = 7735924907) 77 U/L 13-40 H Lab Interpretation (test cod e = 27839-6) Abnormal [facility] 1 [id number] 06:12:38No acute cardiopulmonary process. RL: [id number]: [id number] Patient name: FLORES GREGORY: 1990 30 years EXAMINATION: XR CHEST 1 VW Ordering Physician: ROSENDO VANCE CLINICAL HISTORY:fever COMPARISON:None TECHNIQUE:Single frontal view of the chest was performed. The technique of thisexamination is adequate. FINDINGS:Normal lung volumes. No focal infiltrate or consolidation. No effusion orpneumothorax. Heart size is normal withoutedema. Normal aortic contours.No acute osseous abnormality. [facility], Radiant Results Inft User - 01/27/2021 1:13 AM CDT Patient name: FLORES SMITH: 1990 30 years EXAMINATION: XR CHEST 1 VWOrdering Physician: ROSENDO VANCE CLINICAL HISTORY:fever COMPARISON:NoneTECHNIQUE:Single frontal view of the chest was performed. The technique of thisexamination is adequate.FINDINGS:Normal lung volumes. No focal infiltrate or consolidation. No effusion orpneumothorax. Heart size is normal without edema. Normal aortic contours.No acute osseous abnormality.IMPRESSIONNo acute cardiopulmonary process.RL: [id number]: [id number] signed by Maxime Bolaños at 01/27/2021 1:12 AM[facility] CHEST 1 [id number] 06:12:38No acute cardiopulmonary process. RL: 8722AFC: [id number] Patient name: FLORES GREGORY: 1990 30 years [...] years EXAMINATION: XR CHEST 1 VWOrdering Physician: ROSENOD VANCE CLINICAL HISTORY:fever COMPARISON:NoneTECHNIQUE:Single frontal view of the chest was performed. The technique of thisexamination is adequate.FINDINGS:Normal lung volumes. No focal infiltrate or consolidation. No effusion orpneumothorax. Heart size is normal without edema. Normal aortic contours.No acute osseous abnormality.IMPRESSIONNo acute cardiopulmonary process.RL: 8722AF: [id number] signed by Maxime Bolaños at 01/27/2021 1:12 [facility] Whole Svaxy6723-22-83 05:56:59* Test Item Value Reference Range Interpretation Comme nts LACTIC ACID (test code = 8258428382) 1.65 mmol/L 0.50-2.20 Lab Interpretation (test cod e = 08376-1) Normal [facility] Acid Whole [id number] 05:56:59* Test Item Value Reference Range Interpretation Comme nts LACTIC ACID (test code = 7901779388) 1.65 mmol/L 0.50-2.20 Lab Interpretation (test cod e = 08104-2) Normal [facility] (ID NOW RAPID TESTING)2021-01-27 04:56:37* Test Item Value Reference Range Interpretation Comme nts SARS-CoV-2 Rapid ID NOW (test code = 76332-0) Positive Not Detected A ASHLEE (test code = ASHLEE) ID NOW COVID-19 As say is an isothermal nucleic acid amplification test intended for the qualitative detection of nucleic acid from SARS-CoV-2 viral RNA in nasopharyngeal (VERIFY REP) specimens. It is used under Emergency Use [...] clinically indicated. Lab Interpretation (test code = 97391-5) Abnormal [facility] (ID NOW RAPID TESTING)2021-01-27 04:56:37* Test Item Value Reference Range Interpretation Comme nts SARS-CoV-2 Rapid ID NOW (test code = 25975-6) Positive Not Detected A ASHLEE (test code = ASHLEE) ID NOW COVID-19 As say is an isothermal nucleic acid amplification test intended for the qualitative detection of nucleic acid from SARS-CoV-2 viral RNA in nasopharyngeal (VERIFY REP) specimens. It is used under Emergency Use [...] clinically indicated. Lab Interpretation (test code = 16721-8) Abnormal [facility] METABOLIC PANEL (NA, K, CL, CO2, GLUCOSE, BUN, CREATININE, CA)2021-01-27 02:53:47* Test Item Value Reference Range Interpretation Comme nts NA (test code = 7876371849) 140 mmol/L 135-145 K (test code = 3656693850) 3.6 mmol/L 3.5-5.0 CL (test code = 4302190383) 101 mmol/L 98-108 CO2 TOTAL (test code = 3681022430) 31 mmol/L 23-31 AGAP (test code = 2385789229) 2-16 BUN (test code = 6942472228) 6 mg/dL 7-23 L GLUCOSE (test code = 0801512055) 130 mg/dL 70-110 H CREATININE (test code = 9240551365) 0.49 mg/dL 0.50-1.04 L CALCIUM (test code = 8584662137) 9.4 mg/dL 8.6-10.6 eGFR (test code = 6214398319) mL/min/1.73m2 ASHLEE (test code = ASHLEE) Association [...] imaging tests). Lab Interpretation (test code = 42516-0) Abnormal [facility] METABOLIC PANEL (NA, K, CL, CO2, GLUCOSE, BUN, CREATININE, CA)2021-01-27 02:53:47* Test Item Value Reference Range Interpretation Comme nts NA (test code = 6055145975) 140 mmol/L 135-145 K (test code = 3638552151) 3.6 mmol/L 3.5-5.0 CL (test code = 3839412945) 101 mmol/L 98-108 CO2 TOTAL (test code = 5147528974) 31 mmol/L 23-31 AGAP (test code = 5573777365) 2-16 BUN (test code = 0759932704) 6 mg/dL 7-23 L GLUCOSE (test code = 1331668106) 130 mg/dL 70-110 H CREATININE (test code = 4638439383) 0.49 mg/dL 0.50-1.04 L CALCIUM (test code = 7622472408) 9.4 mg/dL 8.6-10.6 eGFR (test code = 1306052261) mL/min/1.73m2 ASHLEE (test code = ASHLEE) Association [...] imaging tests). Lab Interpretation (test code = 38577-5) Abnormal [facility] WITH [id number] 02:42:45* Test Item Value Reference Range Interpretation [...] g/dL 31.6-35.1 L RDW-SD (test code = 18890-9) 43.4 fL 39.0-49.9 RDW-CV (test code = 788-0) 14.1 % 12.0-15.5 PLT (test code = 777-3) See_Comment [Automated messa ge] The system which generated this result transmitted reference range: 166 - 358 10*3/?L. The reference range was not used to interpret this result as normal/abnormal. MPV (test code = 61256-7) 10.8 fL 9.5-12.9 NRBC/100 WBC (test code = 5892742220) See_Comment [Automated [employer]] The system which generated this result transmitted reference range: 0.0 - 10.0 /100 WBCs. The reference range was not used to interpret this result as normal/abnormal. NRBC x10^3 (test code = 2851844449) <0.01 See_Comment [Automated messa ge] The system which generated this result transmitted reference range: 10*3/?L. The reference range was not used to interpret this result as normal/abnormal. GRAN MAT (NEUT) % (test code = 770-8) 70.5 % IMM GRAN % (test code = 5235960122) 0.60 % LYMPH % (test code = 736-9) 19.5 % MONO % (test code = 5905-5) 5.6 % EOS % (test code = 713-8) 3.4 % BASO % (test code = 706-2) 0.4 % GRAN MAT x10^3(ANC) (test code = 4749757694) 7.35 10*3/uL 1.88-7.09 H IMM GRAN x10^3 (test code = 6895199493) 0.06 10*3/uL 0.00-0.06 LYMPH x10^3 (test code = 731-0) 2.03 10*3/uL 1.32-3.29 MONO x10^3 (test code = 742-7) 0.58 10*3/uL 0.33-0.92 EOS x10^3 (test code = 711-2) 0.35 10*3/uL 0.03-0.39 BASO x10^3 (test code = 704-7) 0.04 10*3/uL 0.01-0.07 Lab Interpretation (test code = 49686-2) Abnormal [facility] WITH [id number] 02:42:45* Test Item Value Reference Range Interpretation Comme nts WBC (test code = 6690-2) See_Comment [[employer]ated [employer]] The system which generated this result transmitted reference range: 4.30 - 11.10 10*3/?L. The reference range was not used to interpret this result as normal/abnormal. RBC (test code = 789-8) See_Comment L [[employer]ated [employer] ge] The system which generated this result [...] g/dL 31.6-35.1 L RDW-SD (test code = 71813-4) 43.4 fL 39.0-49.9 RDW-CV (test code = 788-0) 14.1 % 12.0-15.5 PLT (test code = 777-3) See_Comment [Automated messa ge] The system which generated this result transmitted reference range: 166 - 358 10*3/?L. The reference range was not used to interpret this result as normal/abnormal. MPV (test code = 05789-3) 10.8 fL 9.5-12.9 NRBC/100 WBC (test code = 8556124947) See_Comment [Automated me ssage] The system which generated this result transmitted reference range: 0.0 - 10.0 /100 WBCs. The reference range was not used to interpret this result as normal/abnormal. NRBC x10^3 (test code = 8443501487) <0.01 See_Comment [Automated messa ge] The system which generated this result transmitted reference range: 10*3/?L. The reference range was not used to interpret this result as normal/abnormal. GRAN MAT (NEUT) % (test code = 770-8) 70.5 % IMM GRAN % (test code = 3429241647) 0.60 % LYMPH % (test code = 736-9) 19.5 % MONO % (test code = 5905-5) 5.6 % EOS % (test code = 713-8) 3.4 % BASO % (test code = 706-2) 0.4 % GRAN MAT x10^3(ANC) (test code = 1857629554) 7.35 10*3/uL 1.88-7.09 H IMM GRAN x10^3 (test code = 0550993488) 0.06 10*3/uL 0.00-0.06 LYMPH x10^3 (test code = 731-0) 2.03 10*3/uL 1.32-3.29 MONO x10^3 (test code = 742-7) 0.58 10*3/uL 0.33-0.92 EOS x10^3 (test code = 711-2) 0.35 10*3/uL 0.03-0.39 BASO x10^3 (test code = 704-7) 0.04 10*3/uL 0.01-0.07 Lab Interpretation (test code = 38410-6) Abnormal [facility] [place] [id number] 02:30:00* Test Item Value Reference Range Interpretation Comme nts POCT PREG (test code = 1605) negative On board controls acceptable with C Line (test code = 3574) present POCT PREG LOT # (test code = 3575) [id number] POCT PREG TEST DATE ( test code = 3576) 07/27/2022 Lab Interpretation (test cod e = 16132-6) Normal [facility] [id number] 02:30:00* Test Item Value Reference Range Interpretation Comme nts POCT PREG (test code = 1605) negative On board controls acceptable with C Line (test code = 3574) present POCT PREG LOT # (test code = 3575) [id number] POCT PREG TEST DATE ( test code = 3576) 07/27/2022 Lab Interpretation (test cod e = 30251-7) Normal [facility] Whole Qfxkb8758-72-65 02:23:17* Test Item Value Reference Range Interpretation Comme nts LACTIC ACID (test code = 6001718388) 3.15 mmol/L 0.50-2.20 H Lab Interpretation (test cod e = 55333-7) Abnormal [facility] Whole Upmba3295-79-00 02:23:17* Test Item Value Reference Range Interpretation Comme nts LACTIC ACID (test code = 5428001668) 3.15 mmol/L 0.50-2.20 H Lab Interpretation (test cod e = 73020-7) [facility] [id number] 23:07:00* Test Item Value Reference Range Interpretation Comme nts POCT PREG (test code = 1605) Negative On board controls acceptable with C Line (test code = 3574) Yes POCT PREG LOT # (test code = 3575) POCT PREG TEST DATE ( test code = 3576) [facility] Notes Date/Time Note Provider Source [facility]2025-08-18 00:00:00 [facility]2025-08-05 00:00:00 Peter Cuevas [facility]2024-09-10 13:42:[address] [facility] ([facility] OB Disch REPORT#:[id number] REPORT STATUS: Signed REPORT INITIALIZATION DATE:05/07/24 TIME: 1341 PATIENT: FLORES ZAVALETA UNIT #: [id number] ROOM/BED: [place] [address] : 88 AGE: 33 SEX: F ATTEND: Damaso Zee MD ADM AUTHOR: Damaso Zee MD REPT SERVICE DT/TIME: 05/07/241341 * ALL edits or amendments must be made on the electronic/computer document * Subjective Subjective Patient reports: Patient reports: Yes: normal lochia, pain management effective, tolerating po well, voiding well, voiding without pain, tolerating ambulation, flatus, bowel movement. No: complaints, nausea, vomiting, excessive bleeding, abdominal pain. Objective General VS: Vital Signs Date Temp Pulse Resp B/P B/P Mean Pulse Ox FiO2 05/06-05/07 36.8-37.2 70-89 16 107-120/70-80 92.0 97-100 Last Documented: Result Date Time Pulse Ox 97 05/07 0800 B/P 110/74 05/07 08 Temp 37.2 05/07 800 Pulse 89 05/07 0800 Resp 16 05/07 0800 B/P Mean 92.0 05/06 2000 PATIENT WEIGHT: Weight (lb): 207 Weight (oz): Weight (kg): 94.100 Physical Exam Neuro: Exam: alert, oriented x3, normal speech, normal gait Abdomen: post gravid, soft, no abnormal tenderness, no guarding, no rebound tenderness Uterus: involution appropriate, non-tender Fundus: at the umbilicus Lochia: normal Discharge Summary General Hospital course: spontaneous labor Discharge diagnosis: full-term uncomp delivery Discharge Instructions Additional discharge routines: None at 1344 RPT #:[id number] END OF REPORTGWSIL2521-20-05 13:39:133613-[address] [address] PATIENT NAME: FLORES ZAVALETA ADMIT DATE: 05/05/24 ACCOUNT NO: [id number] ROOM NO: G330 AGE: 33 REPORT TYPE: HISTORY AND PHYSICAL SEX: F ADMITTING PHYSICIAN:Damaso Zee MD ATTENDING PHYSICIAN:Damaso Zee MD ADMISSION DATE: 05/05/2024 03:01:00 HISTORY OF PRESENT ILLNESS: She is a 33-year-old 6, para 4-0-1-4 at 39 weeks and 4 days, coming in complaining of uterine contractions and spontaneous rupture of membranes at term. She denies vaginal bleeding. Her care was uncomplicated. PAST MEDICAL HISTORY: None of significance. PAST SURGICAL HISTORY: None of significance. ALLERGIES: NO KNOWN DRUG ALLERGIES. MEDICATIONS: She is on vitamins. PHYSICAL EXAMINATION: VITAL SIGNS: Stable. ABDOMEN: Fundal height equals dates. ASSESSMENT AND PLAN: 1. A 33 years old 6, para 4, in labor. We will proceed with vaginal delivery. 2. well-being was reassuring. Dictated By: Sariah Scott MD Date Dictated: 05/05/2024 13:39:20 Date Transcribed: 05/05/2024 13:54:37 RUCHI/EMILIA Receipt ID: [id number] Authenticated by Sariah Scott MD On 05/15/2024 08:00:45 AM at 0800 PATIENT NAME: FLORES ZAVALETA 13:37:00 [facility] ([facility]) DT Operative Note REPORT#:[id number] REPORT STATUS: Signed REPORT INITIALIZATION DATE:05/05/24 TIME: 1337 PATIENT: FLORES ZAVALETA UNIT #: [id number] ROOM/BED: 010-1 : 88 AGE: 33 SEX: F ATTEND: Sariah Scott MD ADM AUTHOR: Sariah Scott MD REPT SERVICE DT/TIME: 05/05/24 1337 * ALL edits or amendments must be made on the electronic/computer document * Operative Report Operative Note Note: Date:05/05/24 Preop report: Labor Postop : same Proceure: Spontaneous vaginal delivery Complication:None EBL: 150cc Patient was asked to push during second stage of labor with contractions. Baby's head delivered atraumatically. Suction of upper respiratory tract on perineum. Cord clamped twcice and cut. No tears no lacerations . Laps count was correct at 1338 RPT #:[id number] END OF [id number] 01:57:00 [facility] ([facility] EMERGENCY PROVIDER REPORT REPORT#:[id number] REPORT STATUS: Signed DATE:05/05/24 TIME: 156 PATIENT: FLORES ZAVALETA UNIT #: [id number] ROOM/BED: [place] [address] : 88 AGE: 33 SEX:F PCP PHYS: Damaso Zee MD SERVICE AUTHOR: Zeinab Solano MD REP SRV REP SRV TM: 0157 * ALL edits or amendments must be made on the electronic/computer document * See Addendum CAREY History Chief complaint: uterine contractions, suspected ruptured memb, decreased movement HPI: 33 YO @ 39 4/7 WKS WITH C/O LOF since 1030 pm, passes clear especially when she has a contractions. also reports decreased movement. + PNC with Dr. Zee EDC 05/08/24 history: : 6 Term: 4 Abortus: 1 Living children: 4 Previous : none Current : EDC: 05/08/24 EGA (weeks/days): 39 weeks Conditions of : none Past medical history: asthma (uses albuterol inhaler) Past surgical history: [employer] Butt lift 2020 Social history: , no alcohol use, no tobacco use, no drug use Medications: Home Medications: Medication Dose/Rte/Freq Days Qty Entered Last Max Daily Dose Reviewed ASPIRIN 81 MG PO DAILY 05/05/24 Strength: 81 MG TAB.CHEW 0130 PNV WITH FE 1 TAB PO DAILY 04/22/24 FUMARATE/FA 1249 () Strength: 27 MG IRON-800 MCG TAB FERROUS SULFATE 325 MG PO DAILY 04/22/24 (FEOSOL) 1250 Strength: 325 MG (65 MG IRON) TAB Allergies Coded Allergies: No Known Allergies (05/05/24) Review of Systems Constitutional: Denies: chills, fever. Respiratory: Denies: SOB. Cardiovascular: Denies: chest pain. GI: Denies: nausea, vomiting. : Denies: vaginal bleeding. Neuro: Denies: headache, lightheaded. Objective General VS: PATIENT WEIGHT: Weight (lb): Weight (oz): Weight (kg): BP 111/72 P 82 Physical Exam Cardiac: regular rate and rhythm Lungs: clear to auscultation Neuro: Exam: alert, oriented x3 Abdomen: gravid, soft Uterine activity: Monitor: toco Frequency (description): irregular FHR evaluation: Baseline: 120 bpm Variability: moderate 6-25 bpm Lower extremities: Edema: none Diagnosis, Assessment Plan Diagnosis, Assessment Plan Free Text A P: 33 yo @ 39 4/7 wks with decreased movement, contractions, LOF Amnisure cervical check at 0204 Addendum 1: 05/05/24 0250 by Zeinab Solano MD Patient Addendum Addendum SSE: + gross pooling clear fluid cervix: 3/50/-3/ cephalic Admit to L D at 0250 RPT #:[id number] END OF [id number] 12:41:00 [facility] CAREY Evaluation Note REPORT#:[id number] REPORT STATUS: Signed REPORT INITIALIZATION DATE:04/22/24 TIME: 1241 PATIENT: FLORES ZAVALETA UNIT #: [id number] ROOM/BED: : 88 AGE: 33 SEX: F ATTEND: Damaso Zee MD ADM DT: AUTHOR: Meghan Streeter MD REPT SERVICE DT/TIME: 04/22/24 1241 * ALL edits or amendments must be made on the electronic/computer document * CAREY History Chief complaint: uterine contractions Notes: Patient is a 33-year-old G [id number] at 37 weeks and 5 days with an GENET of May 08, 2024 who reports painful contractions about every 20 to 30 minutes since yesterday AM 1 AM patient reports waking up around 3 AM and noticing spotting on wiping because of the painful contractions and the spotting she went into the office today in [place] and they did a sterile speculum exam but did not do a digital exam she was told that the cervical os was open and to go to the hospital to be evaluated patient again reports her contractions are once every 2030 minutes spotting on wiping no leakage or gush patient this was asked by the patient twice through the clinical counselor and again patient denies any gush of fluid like her water bag broke reports positive movement OB history: 4 full-term vaginal deliveries, biggest baby about 8 pounds no complications before during or after any of the deliveries, 1 SAB no D C Past medical history Asthma, MDI prn Past surgical history some cosmetic surgery on her but where they transferred fat Social history denies any tobacco alcohol or drug use no history sexual transmitted infections Medicines vitamins, MDI albuterol prn Allergies no known drug allergies Family history noncontributory Medications: Home Medications: Medication Dose/Rte/Freq Days Qty Entered Last Max Daily Dose Reviewed PNV WITH FE 1 TAB PO DAILY 04/22/24 FUMARATE/FA 1249 () Strength: 27 MG IRON-800 MCG TAB FERROUS SULFATE 325 MG PO DAILY 04/22/24 (FEOSOL) 1250 Strength: 325 MG (65 MG IRON) TAB Allergies Coded Allergies: No Known Allergies (04/22/24) Review of Systems GI: Reports: abdominal pain. : Reports: pelvic pain, , vaginal bleeding (spotting on wiping). Denies: vaginal discharge. All systems rev neg: except as marked Objective General VS: First Documented: Result Date Time Pulse Ox 99 04/22 1234 Temp 98.3 04/22 1234 Pulse 82 04/22 1234 Resp 16 04/22 1234 B/P 111/04/22 1242 B/P Mean 86.0 04/22 1242 Date Temp Pulse Resp B/P B/P Mean Pulse Ox FiO2 04/22 98.3 73-82 16 111/ 86.0 98-99 PATIENT WEIGHT: Weight (lb): Weight (oz): Weight (kg): Physical Exam HEENT: normocephalic w/o injury, pupils equal Lungs: unlabored breathing Neuro: Exam: alert, oriented x3, normal speech Abdomen: gravid, soft, no abnormal tenderness, no guarding, no rebound tenderness Uterine activity: Monitor: toco Frequency (description): occasional, irregular Frequency (minutes): 20 Duration (seconds): 40 Intensity: moderate Pelvic exam: Pelvis clinically adequate: yes Vulvar lesions: none Cervical/ exam: Dilatation (cm): 1 Effacement (%): 50 station: - 3 presentation: cephalic FHR evaluation: Baseline: 130 bpm Variability: moderate 6-25 bpm Accelerations: 15 X 15 Decelerations: none FHR category: category 1 Membranes: Membranes: Intact, SROM, PROM, PPROM, AROM, status undetermined Lower extremities: Edema: none Calf tenderness: negative Diagnosis, Assessment Plan Diagnosis, Assessment Plan Free Text A P: A: 33 yo @ 37w5 with false labor P1. dc home 2. labor precautions 3. kick counts 4. f/u w/ Dr. Zee on this as scheduled 5. NST cat 1 Plan discussed with: patient, spouse/partner, nurse at 1334 RPT #:[id number] END OF [id number] 00:00:00 [facility]2024-08-16 00:00:00 [facility]2024-08-15 00:00:00 [facility]2024-08-02 00:00:00 [facility]2024-07-29 00:00:00 [facility]2024-07-19 00:00:00 [facility]2024-07-05 00:00:00 [facility]2024-06-26 00:00:00 [facility]2024-06-14 00:00:00 [facility]2024-05-17 00:00:00 [facility]2024-04-19 00:00:00 [facility]2024-04-16 00:00:00 [facility]
[2025-04-19] MEDS ORDERED: KETOROLAC 30 MG/ML INJ ONE (17:19)
[2025-04-19] MEDS ORDERED: ONDANSETRON 4 MG/2 ML VIAL ONE (17:19)
[2025-04-19 18:09] LABS: Sqamous Epithelial None Seen /HPF (None Seen); Urine Culture Reflex Order NOT NEEDED; Urine Microscopic Reflex YN ORDER UMIC
[2025-04-19 18:25] LABS: ALT/SGPT 15.0 U/L (13-56); AST/SGOT 13.0 U/L (15-37); Albumin 3.3 g/dL (3.4-5.0); Albumin/Globulin Ratio 0.9 (1.1-1.8); Alkaline Phosphatase 95.0 U/L (45-117); Anion Gap 10.5 mEq/L (5.0-15.0); BUN Blood Urea Nitrogen 9.0 mg/dL (7-18); Globulin 3.7 g/dL (2.3-3.5); Glucose Level 88.0 mg/dL (74-106); Potassium 4.5 mEq/L (3.5-5.1)
[2025-04-19 18:41] LABS: Absolute Lymphocytes (CBC) 2.1 K/uL (0.7-4.9); Hematocrit 26.8 % (36.0-45.0); Hemoglobin 9.1 g/dL (12.0-15.0); MCH 27.9 pg (27.0-35.0); MCHC 33.8 g/dL (32.0-36.0); MCV 82.5 fL (80-100); MPV 9.6 fL (7.6-11.3); Nucleated RBC Absolute Count 0.0 (0-0); Nucleated Red Blood Cells % 0.2 % (0-0); RBC Red Blood Cell Count 3.25 M/uL (3.86-4.86); White Blood Count 8.70 thou/uL (4.3-10.9)
--- NOTE | 2025-04-19 19:19 | RAD REPORT ---
EXAMINATION: Abdomen Pelvis W Contrast CLINICAL INDICATION: Female, 34 years old.RLQ abdominal pain;Abd pain TECHNIQUE: CT abdomen and pelvis was performed, after the administration of IV contrast, as per [facility] protocol. Axial, sagittal and coronal reconstructions were obtained. One or more of the following dose reduction techniques were used: Automated exposure control, adjustment of the mA and/o r kV according to patient size, and/or iterative reconstruction. Unless otherwise specified, incidental findings do not require dedicated imaging follow-up. NI2110. COMPARISON: Pelvic ultrasound 04/17/2025, abdominal ultrasound 04/17/2025 FINDINGS: LOWER CHEST: No acute process identified.No significant pericardial effusion. Mild circumferential th ickening of the distal esophagus which could reflect esophagitis. UPPER GI: No significant abnormality. LIVER: Hepatic steatosis, but otherwise unremarkable. GALLBLADDER/BILE DUCTS: No biliary ductal dilatation.? PANCREAS: No mass, ductal dilation, or sandra-pancreatic fluid. SPLEEN: Unremarkable. ADRENALS: No adrenal masses. KIDNEYS AND URETERS: No hydronephrosis.No suspicious renal mass.No renal calculi.No ureteral calculi. ABDOMINAL AORTA AND OTHER VESSELS: Normal caliber aorta and IVC. PERITONEUM: Free fluid is present. There is stranding and trace nodularity within the omentum. LYMPH NODES: No pathologic lymphadenopathy. ABDOMINAL WALL: Unremarkable SMALL BOWEL/COLON: Small bowel has normal course and caliber. No colonic wall thickening or pericolon ic inflammatory changes.Normal appendix. URINARY BLADDER: Nonspecific circumferential bladder wall thickening. REPRODUCTIVE ORGANS: No pathologic process. MUSCULOSKELETAL: No acute or suspicious osseous abnormality. ADDITIONAL FINDINGS: None. IMPRESSION: Abnormal stranding within the omentum and small bowel mesentery with largely decompressed loops of sm all bowel and colon. The appendix is normal. No free air or abscess identified. No clear source for these findings is identified. The trace omental nodularity could indicate a neoplastic process (perit garcia carcinomatosis) but no other findings present to suggest a malignancy. No suspicious ovarian lesions were identified on the recent pelvic ultrasound.Would suggest close clinical follow-up and po ssible short term repeat CT abdomen/pelvis in 2-4 weeks to reassess.
--- NOTE | 2025-04-19 19:31 | EDPHYS ---
Physician Documentation [facility] Name: Erika Dai Age: 34 yrs Sex: Female : 1990 Arrival Date: 04/19/2025 Time: 16:43 Bed 6 Private MD: ED Physician Jamie Khan HPI: 04/19 19:18 This 34 yrs old Female presents to ER via Ambulatory with complaints of Pelvic dr5 Pain. 19:18 Onset: The symptoms/episode began/occurred 1 week(s) ago. dr5 19:19 Patient is a 34-year-old female with history of asthma coming with right lower quadrant dr5 abdominal pain has been going on for 1 week. Patient reports she had ultrasounds done but has not gotten results yet. Quick review of [employer] results shows trace fluid in pelvis which is physiological and no other acute abnormalities. Patient reports she has a follow-up with her doctor this week. Patient denies nausea, vomiting, diarrhea, fever.. Historical: - Allergies: 16:58 No Known Allergies; iw - PMHx: 16:58 Asthma; iw - PSHx: 16:58 BBL; iw - Immunization history:: Adult Immunizations up to date. - Infectious Disease History:: Denies. - Social history:: Smoking status: Patient denies any tobacco usage or history of. ROS: 19:19 Constitutional: as per hpi dr5 Exam: 19:19 Constitutional: This is a well developed, well nourished patient who is awake, alert, dr5 and in no acute distress. Head/Face: Normocephalic, atraumatic. Eyes: Pupils equal round and reactive to light, extra-ocular motions intact. Lids and lashes normal. Conjunctiva and sclera are non-icteric and not injected. Cornea within normal limits. Periorbital areas with no swelling, redness, or edema. Neck: Trachea midline, no thyromegaly or masses palpated, and no cervical lymphadenopathy. Supple, full range of motion without nuchal rigidity, or vertebral point tenderness. No Meningismus. Chest/axilla: Normal chest wall appearance and motion. Nontender with no deformity. No lesions are appreciated. Cardiovascular: Regular rate and rhythm with a normal S1 and S2. Normal PMI, no JVD. No pulse deficits. Respiratory: Lungs have equal breath sounds bilaterally, clear to auscultation. No rales, rhonchi or wheezes noted. No increased work of breathing, no retractions or nasal flaring. Abdomen/GI: Soft, mild tenderness to right lower quadrant. Back: No spinal tenderness. No costovertebral tenderness. Full range of motion. Skin: Warm, dry with normal turgor. Normal color with no rashes, no lesions, and no evidence of cellulitis. MS/ Extremity: Pulses equal, no cyanosis. Neurovascular intact. Full, normal range of motion. Neuro: Awake and alert, GCS 15, oriented to person, place, time, and situation. Cranial nerves II-XII grossly intact. Motor strength 5/5 in all extremities. Sensory grossly intact. Cerebellar exam normal. Normal gait. Vital Signs: 16:59 BP 121 / 83; Pulse 68; Resp 16; Temp 98.1(O); Pulse Ox 100% ; Weight 86.18 kg; Height 5 iw ft. 0 in. ; Pain 10/10; 18:30 BP 124 / 80; Pulse 65; Resp 16; Temp 98.3; Pulse Ox 99% on R/A; dd2 19:43 BP 126 / 85; Pulse 72; Resp 16; Pulse Ox 100% on R/A; dd2 16:59 Body Mass Index 37.11 (86.18 kg, 152.4 cm) iw 16:59 Pain Scale: Adult iw Muna Coma Score: 17:30 Eye Response: spontaneous(4). Motor Response: obeys commands(6). Verbal Response: dd2 oriented(5). Total: 15. MDM: 16:46 Medical Screening Exam initiated dr5 19:19 Differential diagnosis: viral Infection, bacterial infection, Appendicitis, , dr5 ovarian cyst, urinary tract infection. Data reviewed: vital signs, nurses notes, lab test result(s), CBC, white blood cell count, hemoglobin, hematocrit, platelets, electrolytes, sodium, potassium, chloride, serum bicarbonate, BUN, creatinine, serum glucose, urinalysis, radiologic studies, CT scan. Consideration of Admission/Observation Escalation of care including admission/observation considered. Escalation considered patient found to have appendicitis. I considered the following discharge prescriptions or medication management in the emergency department I discussed and recommended Over The Counter medications, Medications were administered in the Emergency Department. See MAR. Test considered but Not performed: Ultrasound Considered but not done due to patient already had it done 2 days ago.. Historians other than the Patient: Spouse/Significant Other: Significant other at bedside. Care significantly affected by the following chronic conditions: Asthma. Care significantly affected by the following Social Determinants of Health: Poor access to healthcare and/or lack of insurance, Poor access to transportation, Problems related to employment. Counseling: I had a detailed discussion with the patient and/or guardian regarding the historical points, exam findings, and any diagnostic results supporting the discharge/admit diagnosis, the presence of at least one elevated blood pressure reading (>120/80) during this emergency department visit, lab results, radiology results, the need for outpatient follow up, for definitive care, a family practitioner, to return to the emergency department if symptoms worsen or persist or if there are any questions or concerns that arise at home. Medication response: Response to treatment: the patient's symptoms have markedly improved after treatment. 19:31 Special discussion: I discussed with the patient/guardian in detail that at this point dr5 there is no indication for admission to the hospital. It is understood, however, that if the symptoms persist or worsen the patient needs to return immediately for re-evaluation. I discussed with the patient the need to follow-up with the PCP/specialist for the noted incidental finding on X-ray/CT scanning. Discussed CT scan results at length with patient. Patient reports that she will be seen on April 21 with her primary care doctor. CT scan results as well as blood work printed and given to patient to take with her. I sat down and explained the importance of following up with primary care doctor for CT scan findings. Patient reports that she is having some constipation and would like to have some medicine. Will give Colace. Patient currently taking Augmentin for urinary tract infection and I recommended continuing Augmentin until completion. Toradol injection given in ER which relieved symptoms. Patient is feeling much better.. ED course: All questions answered. CT scan results explained to patient. Recommended patient follow primary care doctor and if she is not able to get into primary care doctor to return here for worsening pain. Patient verbalizes understanding and agreement plan. 04/19 16:46 Order name: UA Rfx Brayan Cult if indicated; Complete Time: 18:14 dr5 04/19 16:46 Order name: Test, Urine; Complete Time: 18:44 04/19 17:00 Order name: CBC with Diff; Complete Time: 18:44 dr5 04/19 17:00 Order name: CMP; Complete Time: 18:44 dr5 04/19 17:00 Order name: CT Abd/Pelvis - IV Contrast Only; Complete Time: 19:22 dr5 Administered Medications: 17:29 Drug: Ketorolac IVP 15 mg IVP once Route: IVP; Site: left antecubital; dd2 17:45 Follow up: Response: No adverse reaction dd2 17:29 Drug: Ondansetron IVP 4 mg IVP once; over 2 minutes Route: IVP; Site: left antecubital; dd2 17:45 Follow up: Response: No adverse reaction dd2 Disposition: 04/20 06:57 Co-signature as Attending Physician, Jamie Khan MD I reviewed the patient's care rn provided by the Advanced Practice Provider and agree with the diagnosis and treatment plan. Disposition Summary: 04/19/25 19:31 Discharge Ordered Notes: Location: Home dr5 Condition: Stable dr5 Diagnosis - Constipation dr5 - UTI/ Urinary tract infection, site not specified dr5 - Right lower quadrant abdominal tenderness dr5 Followup: dr5 - With: Emergency Department - When: As needed - Reason: Worsening of condition Followup: dr5 - With: Private Physician - When: 1 - 2 days - Reason: Recheck today's complaints, Continuance of care, Re-evaluation by your physician Discharge Instructions: - Discharge Summary Sheet dr5 - Constipation, Adult dr5 - Urinary Tract Infection, Adult, [id number]-[id number] dr5 Forms: - Medication Reconciliation Form dr5 - Patient Portal Instructions dr5 - Leadership Thank You Letter dr5 Prescriptions: - Colace 100 mg Oral Tablet - take 1 tablet ORAL route every 12 hours; 14 tablet; Refills: 0, Product dr5 Selection Permitted Signatures: Dispatcher [employer] Brigette Sanchez RN RN iw Nieto, Roman, MD MD rn DAVIS, DIANA, RN RN dd2 Gatito Hewitt, RHEUMATOLOGY NURSE-C RHEUMATOLOGY NURSE-Cdr5 Corrections: (The following items were deleted from the chart) 04/19 16:47 16:47 UA Rfx Brayan Cult if indicated+U.LAB.BRZ ordered. [facility] EDTX 16:47 16:47 Test, Urine+UC.LAB.BRZ ordered. EDTX EDTX 04/20 08:05 04/19 19:31 Special discussion: I discussed with the patient/guardian in detail that at dr5 this point there is no indication for admission to the hospital. It is understood, however, that if the symptoms persist or worsen the patient needs to return immediately for re-evaluation. I discussed with the patient the need to follow-up with the PCP/specialist for the noted incidental finding on X-ray/CT scanning. Discussed CT scan results at length with patient. Patient reports that she will be seen on April 21 with her primary care doctor. CT scan results as well as blood work printed and given to patient to take with her. I sat down and explained the importance of following up with primary care doctor for CT scan findings. Patient reports that she is having some constipation and would like to have some medicine. Will give Colace. Patient currently taking Augmentin for urinary tract infectionrecommended continuing Augmentin. Toradol injection given in ER which relieved symptoms. Patient is feeling much better.. dr5
--- NOTE | 2025-04-19 19:31 | ER ---
Nurse's Notes [facility] Name: Erika Dai Age: 34 yrs Sex: Female : 1990 Arrival Date: 04/19/2025 Time: 16:43 Bed 6 Private MD: Diagnosis: Constipation;UTI/ Urinary tract infection, site not specified;Right lower quadrant abdominal tenderness Presentation: 04/19 16:51 Chief complaint: Patient states: abd pain on RLQ X 1 week, was seen at doctor last iw week, was put on abx and had an US done but did not get the results. Coronavirus screen: At this time, the client does not indicate any symptoms associated with coronavirus-19. Ebola Screen: No symptoms or risks identified at this time. Initial Sepsis Screen: Does the patient meet any 2 criteria? Does the patient have a suspected source of infection?. Risk Assessment: Do you want to hurt yourself or someone else? Patient reports no desire to harm self or others. 16:51 Method Of Arrival: Ambulatory iw 16:51 Acuity: GERHARD 3 iw 16:59 Onset of symptoms was April 12, 2025. iw Historical: - Allergies: 16:58 No Known Allergies; iw - PMHx: 16:58 Asthma; iw - PSHx: 16:58 BBL; iw - Immunization history:: Adult Immunizations up to date. - Infectious Disease History:: Denies. - Social history:: Smoking status: Patient denies any tobacco usage or history of. Screenin:30 [facility] ED Fall Risk Assessment (Adult) History of falling in the last 3 months, dd2 including since admission No falls in past 3 months (0 pts) Confusion or Disorientation No (0 pts) Intoxicated or Sedated No (0 pts) Impaired Gait No (0 pts) Mobility Assist Device Used No (0 pt) Altered Elimination No (0 pt) Score/Fall Risk Level 0 - 2 = Low Risk Oriented to surroundings, Maintained a safe environment, Educated pt \T\ family on fall prevention, incl call for assistance when getting out of bed, Assessed \T\ reinforced patient's understanding of fall precautions, Hourly rounding (assess needs \T\ fall precautionary measures) done. Abuse screen: Denies threats or abuse. Denies injuries from another. Nutritional screening: No deficits noted. Tuberculosis screening: No symptoms or risk factors identified. Assessment: 17:30 General: Appears in no apparent distress. uncomfortable, Behavior is calm, cooperative, dd2 appropriate for age. Pain: Complains of pain in right low back, right upper quadrant and right lower quadrant Pain currently is 9 out of 10 on a pain scale. Neuro: No deficits noted. Cardiovascular: No deficits noted. Respiratory: No deficits noted. GI: Abdomen is non-distended, obese, Bowel sounds present X 4 quads. Abd is soft X 4 quads Abdomen is tender to palpation in suprapubic area and right lower quadrant Reports lower abdominal pain, upper abdominal pain, nausea, vomiting. : Reports pain in right in suprapubic area upper quadrant(s) lower quadrant(s) in lower back. EENT: No deficits noted. No signs and/or symptoms were reported regarding the EENT system. Derm: No deficits noted. No signs and/or symptoms reported regarding the dermatologic system. Musculoskeletal: No deficits noted. No signs and/or symptoms reported regarding the musculoskeletal system. Circulation, motion, and sensation intact. Range of motion: intact in all extremities. Vital Signs: 16:59 BP 121 / 83; Pulse 68; Resp 16; Temp 98.1(O); Pulse Ox 100% ; Weight 86.18 kg; Height 5 iw ft. 0 in. ; Pain 10/10; 18:30 BP 124 / 80; Pulse 65; Resp 16; Temp 98.3; Pulse Ox 99% on R/A; dd2 19:43 BP 126 / 85; Pulse 72; Resp 16; Pulse Ox 100% on R/A; dd2 16:59 Body Mass Index 37.11 (86.18 kg, 152.4 cm) iw 16:59 Pain Scale: Adult iw Muna Coma Score: 17:30 Eye Response: spontaneous(4). Motor Response: obeys commands(6). Verbal Response: dd2 oriented(5). Total: 15. ED Course: 16:45 Patient arrived in ED. ts1 16:46 Gatito Hewitt FNP-C [facility]. dr5 16:46 Jamie Khan MD is Attending Physician. dr5 16:54 Triage completed. iw 17:29 CMP Sent. dd2 17:29 CBC with Diff Sent. dd2 17:29 Test, Urine Sent. dd2 17:29 UA Rfx Brayan Cult if indicated Sent. dd2 17:30 No provider procedures requiring assistance completed. Initial lab(s) drawn, by me, dd2 sent to lab. Inserted saline lock: 20 gauge in left antecubital area, using aseptic technique. Blood collected. Flushed with 10 mL NS. Patient maintains SpO2 saturation greater than 95% on room air. 17:30 Patient has correct armband on for positive identification. Bed in low position. Call dd2 light in reach. Side rails up X 1. Provided Education on: MEDICATION, PROCEDURES, LABS. Client placed on continuous cardiac and pulse oximetry monitoring. NIBP monitoring applied. Door closed. Noise minimized. Warm blanket given. Pillow given. Verbal reassurance given. 18:47 CT Abd/Pelvis - IV Contrast Only In Process Unspecified. EDMS 19:43 IV discontinued, intact, bleeding controlled, No redness/swelling at site. Pressure dd2 dressing applied. Administered Medications: 17:29 Drug: Ketorolac IVP 15 mg IVP once Route: IVP; Site: left antecubital; dd2 17:45 Follow up: Response: No adverse reaction dd2 17:29 Drug: Ondansetron IVP 4 mg IVP once; over 2 minutes Route: IVP; Site: left antecubital; dd2 17:45 Follow up: Response: No adverse reaction dd2 Medication: 17:30 VIS not applicable for this client. dd2 Outcome: 19:31 Discharge ordered by . dr5 19:43 Discharged to home ambulatory, dd2 19:43 Condition: stable 19:43 Discharge instructions given to patient, Instructed on discharge instructions, follow up and referral plans. medication usage, Demonstrated understanding of instructions, follow-up care, medications, Prescriptions given X 1, 19:57 Patient left the ED. dd2 Signatures: Dispatcher [employer] EDMS Brigette Chester RN RN iw Yuli Ornelas, ÁNGEL PAS ts1 KAMRAN SANDERS RN RN dd2 Gatito Hewitt, JJ-C SEW ON OPERATOR-Cdr5 Corrections: (The following items were deleted from the chart) 19:43 18:30 BP 126 / 85; Pulse 72bpm; Resp 16bpm; Pulse Ox 100% RA; dd2 dd2
[2025-04-19 20:19] VITALS: TEMP 98.3
[2025-04-19 20:20] VITALS: BP 126/85; O2SAT 100
== END 2025-04-19 19:57 | disposition home or self-care (01) ==
LOC: ER 16:43
DX: K59.00 Constipation, unspecified (principal); N39.0 Urinary tract infection, site not specified
CPT/HCPCS: 36415; 74177; 80053; 81001; 81025; 85025; 96374; 96375; 99284; J2405; Q9967

== ENCOUNTER 2025-05-27 08:28 | Emergency (ER) | payer OTHER ==
--- OUTSIDE RECORDS SUMMARY | 2025-05-27 08:51 | XMS REPORT | Continuity of Care Document ---
Author Name Unknown Address [address] [facility] [address] [place] [address] [facility] Address [address] [facility] [place] [address] Care Team Providers Care Pool Finisher Name Role Phone Joanie Sebastian Primary Care Physicia n Damaso Zee Attending Clinician Unavail able Etelvina Salcedo MA Attending Clinician Meghan Edgar Attending Clinician Unavaila JOANIE Chan Attending Clinician Unavail able HANH MCDONALD Attending Clinician Unavailable [facility] Attending Clinician Unavailable Hanh Mcdonald MD Attending Clinician [phone] LAVON ROBB Attending Clinician Unavailable Lavon Robb MD Attending Clinician [phone] [facility] Attending Clinician Unavailable Akinsipe WHCNP, Joanie Cardoso Attending Clinician + LEE ANN HUSSEIN Attending Clinician Unavailable Lee Ann Hussein MD Attending Clinician [phone] MISTY HOOKER Attending Clinician Unavailable Walter ATKINSONPMisty Attending Clinician [phone] WYATT HUGGINS Attending Clinician Unavailab OTILIA Ibrahim Attending Clinician Unavailable Otilia Ortiz S Attending Clinician [phone] MARVA HOLCOMB Attending Clinician Unavailable Marva Holcomb MD Attending Clinician [phone] Eder MONTGOMERY, Elena Holm Attending Clinician [phone] Yaima Julio Attending Clinician [phone] Rosendo Vance MD Attending Clinician [phone] Mauro Pruitt MD Attending Clinician [phone] [facility] Attending Clinician Unava ilable Doctor Unassigned, [place] Attending Clinician U navailable Damaso Zee Admitting Clinician Unavail able LEE ANN HUSSEIN Admitting Clinician Unavailable MISTY HOOKER Admitting Clinician Unavailable OTILIA BRITTON Admitting Clinician Unavailable Madina CARD, Rosendo Admitting Clinician Payers Payer Name Policy Type Policy Number Effective Date Expirati on Date Source [place] [employer] [id number] 2022 00:00:00 Problems Condition Name Condition Details Condition Category Status Onset Date Resolution Date Last Treatment Date Treating Clinician Comments Source Miscarriag e Miscarriag e Disease Active 09-26 00:00: 00 Overview: Formattin g of this note might be different from the original. Recent beta at [facility] [address] [facility] Complete Complete Disease Active 09-26 00:00: 00 Overview: Formattin g of this note might be different from the original. Recent beta at [facility] Abnormal maternal glucose tolerance, antepartum Abnormal maternal glucose tolerance, antepartum Disease Active 09-23 00:00: 00 Overview: Formattin g of this note might be different from the original. Pending 3hr gtt [facility] Supervisio n of high-risk Supervisio n of high-risk Disease Active 09-21 00:00: 00 [facility] Vaginal bleeding during Vaginal bleeding during Disease Active 09-21 00:00: 00 [facility] Trichomona l vaginitis during Trichomona l vaginitis during Disease Active 09-21 00:00: 00 Overview: Formattin g of this note might be different from the original. Dx at the ED on meds, pending demi [facility] UTI in UTI in Disease Active 09-21 00:00: 00 Overview: Formattin g of this note might be different from the original. Dx at the ED on meds, pending demi [facility] Multiparit y Multiparit y Disease Active 09-21 00:00: 00 [facility] Cellulitis of right buttock Cellulitis of right buttock Disease Active 6 00:00: 00 [facility] Cellulitis of right buttock Cellulitis of right buttock Disease Active 602 00:00: 00 [facility] Obesity in Obesity in Disease Active 10-19 00:00: 00 [facility] Well woman exam Well woman exam Disease Active 10-19 00:00: 00 [facility] Contracept hermila management Contracept hermila management Disease Active 2 00:00: 00 [facility] Obesity (BMI 30-39.9) Obesity (BMI 30-39.9) Disease Active 2-22 00:00: 00 [facility] Vaginal symptom Vaginal symptom Disease Active 1-15 00:00: 00 [facility] History of asthma History of asthma Disease Active 1-04 00:00: 00 [facility] Contracept hermila management Contracept hermila management Disease Resolve d 2-22 00:00: 00 2022-09-21 00:00:00 2022-09-21 15:03:31 [facility] care and examinatio n of lactating mother care and examinatio n of lactating mother Disease Resolve d 2018-0 -24 00:00: 00 2018-10-19 00:00:00 2018-10-19 11:42:10 [facility] (spontaneo us vaginal delivery) (spontaneo us vaginal delivery) Disease Resolve d 2018-0 1-04 00:00: 00 2018-09-20 00:00:00 2018-09-20 14:24:37 [facility] Single live Single live Disease Resolve d 2018-0 1-04 00:00: 00 2018-09-20 00:00:00 2018-09-20 14:24:36 [facility] Disease Resolve d 2018-0 1-02 00:00: 00 2018-09-20 00:00:00 2018-09-20 14:24:36 [facility] 39 weeks gestation of 39 weeks gestation of Disease Resolve d 2018-0 1-02 00:00: 00 2018-09-20 00:00:00 2018-09-20 14:24:15 [facility] Labor and delivery indication for care or interventi on Labor and delivery indication for care or interventi on Disease Resolve d 2018-0 1-02 00:00: 00 2018-09-20 00:00:00 2018-09-20 14:24:25 [facility] Carpal tunnel syndrome during Carpal tunnel syndrome during Disease Resolve d 2017-1 2-06 00:00: 00 2018-09-20 00:00:00 2018-09-20 14:24:20 [facility] Abnormal maternal glucose tolerance, antepartum Abnormal maternal glucose tolerance, antepartum Disease Resolve d 2017-1 0-17 00:00: 00 2018-09-20 00:00:00 2018-09-20 14:24:18 [facility] Obesity in , antepartum Obesity in , antepartum Disease Resolve d 2017-0 5-11 00:00: 00 2018-09-20 00:00:00 2018-09-20 14:24:30 [facility] High risk , antepartum High risk , antepartum Disease Resolve d 01-05 00:00: 2018-09-20 00:00:00 2018-09-20 14:24:22 [facility] Multigravi da, antepartum Multigravi da, antepartum Disease Resolve d 01-05 00:00: 2018-09-20 00:00:00 2018-09-20 14:24:28 [facility] Mild intermitte nt asthma without complicati on Mild intermitte nt asthma without complicati on Disease Resolve d 01-05 00:00: 00 2018-09-20 00:00:00 2018-09-20 14:24:27 [facility] PPD positive PPD positive Disease Resolve d 03-24 00:00: 00 2018-09-20 00:00:00 2018-09-20 14:24:35 [facility] Well woman exam Well woman exam Disease Resolve d 03-15 00:00: 00 2018-01-05 00:00:00 2018-01-05 10:27:00 [facility] Exposure to STD Exposure to STD Disease Resolve d 03-15 00:00: 00 2018-01-05 00:00:00 2018-01-05 10:27:09 [facility] Encounter for surveillan ce of contracept christine Encounter for surveillan ce of contracept christine Disease Resolve d 03-15 00:00: 00 2018-01-05 00:00:00 2018-01-05 10:27:42 [facility] Nexplanon in place Nexplanon in place Disease Resolve d 03-15 00:00: 00 2018-01-05 00:00:00 2018-01-05 10:27:38 [facility] Metrorrhag ia Metrorrhag ia Disease Resolve d 03-15 00:00: 00 2018-01-05 00:00:00 2018-01-05 10:26:48 [facility] Obesity, unspecifie d Obesity, unspecifie d Disease Resolve d 03-15 00:00: 00 2018-01-05 00:00:00 2018-01-05 10:27:35 [facility] Allergies, Adverse Reactions, Alerts Allergy Name Allergy Type Status Severity Reaction(s) Onset Date Inactive Date Treating Clinician Comments Source No Known Allergie s DA Active U 05-05 00:00: 00 [facility] No Known Allergie s DA Active U 04-22 00:00: 00 [facility] NO KNOWN ALLERGIE S Drug Class Active [facility] Social History Social Habit Start Date Stop Date Quantity Comments Source ASSERTION 2022-08-25 00:00:00 [facility] 2022-10-13 00:00:00 2022-10-13 00:00:00 Current non-drinker of alcohol (finding) [facility] Exposure to SARS-CoV-2 (event) 2022-09-17 00:00:00 2022-09-27 08:53:00 Not sure [facility] History of Social function 2022-09-21 00:00:00 2022-09-21 00:00:00 [facility] Alcoholic beverage intake 2018-05-25 00:00:00 2018-05-25 00:00:00 Current non-drinker of alcohol (finding) [facility] Tobacco use and exposure 2017-03-15 00:00:00 2017-03-15 00:00:00 Smokeless tobacco non-user [facility] Sex assigned at 1990 00:00:00 1990 00:00:00 [facility] Smoking Status Start Date Stop Date Source Never smoked tobacco [facility] Medications Ordered Medication Name Filled Medication Name Start Date Stop Date Current Medication? Ordering Clinician Indication Dosage Frequency Signature (SIG) Comments Components Source methylpredn isolone 4 mg tablets in a dose pack 05-23 00:00: 00 Yes 1mg [facility] MoviPrep 100 gram-7.5 gram-2.691 gram oral powder packet 04-24 00:00: 00 Yes gram [facility] amoxicillin 875 mg-potlisandroiu brett clavulanate 125 mg tablet 04-17 00:00: 00 Yes 1mg [facility] ibuprofen 800 mg tablet 04-17 00:00: 00 Yes 1mg [facility] Bromfed DM 2 mg-30 mg-10 mg/5 mL oral syrup 04-17 00:00: 00 Yes 10mg/5 mL [facility] Tylenol Extra Strength 500 mg tablet 04-14 00:00: 00 Yes 1mg [facility] Macrobid 100 mg capsule 04-14 00:00: 00 Yes 1mg [facility] Zanaflex 4 mg tablet 04-01 00:00: 00 Yes 1mg [facility] ibuprofen [...] [facility] metronidazo le 500 mg tablet 5-20 00:00: 00 Yes 1mg [facility] Qvar [...] 09-27 16:30: 00 09-27 15:49 :00 No [id number] 800mg [facility] ibuprofen 600 mg tablet 09-27 00:00: 00 Yes [id number] 600mg Take 1 tablet by mouth every 6 (six) hours as needed (alternate with tylenol for pain) for up to 20 doses. [facility] ALBUTEROL SULFATE INHALE 09-21 14:43: 24 09-21 00:00 :00 No 1{puff} Inhale 1 Puff every 8 (eight) hours as needed for Other (Wheezing) . [facility] metroNIDAZO LE 500 mg tablet 09-20 00:00: 00 Yes TAKE 4 TABLETS BY MOUTH ONCE DAILY NOW FOR 1 DOSE [facility] Nitrofurant oin&Nit. Macrocryst (MACROBID) 100 mg capsule 09-20 00:00: 00 Yes [id number] 100mg Take 1 capsule by mouth 2 (two) times daily. [facility] NaCl 0.9% (NS) bolus infusion 1,000 mL 11-09 23:45: 00 11-10 01:15 :00 No 1000mL at 999 mL/hr, 1,000 mL, IV Infusion, ONCE, 1 dose, On Mon11/09/21 at 1845, [facility] ketorolac (TORADOL) injection 30 mg 11-09 23:45: 00 11-09 23:36 :00 No 30mg 30 mg, Slow IV Push, ONCE, 1 dose, On Mon11/09/21 at 1845, [facility] ondansetron (ZOFRAN (PF)) injection 4 mg 11-09 23:45: 00 11-09 23:36 :00 No 4mg 4 mg, Slow IV Push, ONCE, 1 dose, On Mon11/09/21 at 1845, [facility] benzonatate 100 mg capsule 11-09 00:00: 00 Yes [id number] 100mg Take 1 capsule by mouth 3 (three) times daily as needed for Cough. [facility] ondansetron (ZOFRAN) 4 mg tablet 11-09 00:00: 00 Yes [id number] 4mg Take 1 tablet by mouth every 8 (eight) hours as needed for Nausea and Vomiting (N/V). [facility] predniSONE 20 mg tablet 11-09 00:00: 00 11-15 04:59 :00 No [id number] 40mg Take 2 tablets by mouth daily for 5 days. [facility] ipratropium -albuteroL (DUONEB) 0.5 mg-3 mg(2.5 mg base)/3 mL nebulizer solution 3 mL 2020-08 09:30: 00 08-06 08:37 :00 No 3mL 3 mL, Inhalation , ONCE, 1 dose, On Mon08/06/21 at 0330, Routine [facility] dexamethaso ne (DECADRON PHOSPHATE) injection 10 mg 2020-08 09:30: 00 08-06 08:27 :00 No 10mg 10 mg, Oral, ONCE, 1 dose, On Mon08/06/21 at 0330, STAT [facility] ipratropium -albuteroL (DUONEB) 0.5 mg-3 mg(2.5 mg base)/3 mL nebulizer solution 3 mL 2020-08 07:45: 00 08-06 06:51 :00 No 3mL 3 mL, Inhalation , ONCE, 1 dose, On Mon08/06/21 at 0145, Routine [facility] predniSONE 50 mg tablet 2020-08 00:00: 00 Yes [id number] 50mg Take 1 tablet by mouth daily. [facility] albuterol 90 mcg/actuati on inhaler 2020-08 00:00: 00 Yes [id number] 2{puff} Inhale 2 Puffs every 4 (four) hours as needed for Wheezing or Shortness of Breath. [facility] albuterol 2.5 mg /3 mL (0.083 %) nebulizer solution 2020-08 00:00: 00 09-21 00:00 :00 No [id number] 2.5mg Inhale 3 mL every 4 (four) hours. May also nebulize one extra every 6 hours. [facility] ALBUTEROL SULFATE INHALE 02-16 21:27: 26 Yes 1{puff} Inhale 1 Puff every 8 (eight) hours as needed for Other (Wheezing) . [facility] ALBUTEROL SULFATE INHALE 02-16 16:27: 26 Yes 1{puff} Inhale 1 Puff every 8 (eight) hours as needed for Other (Wheezing) . [facility] ALBUTEROL SULFATE INHALE 01-29 17:25: 36 Yes 1{puff} Inhale 1 Puff every 8 (eight) hours as needed for Other (Wheezing) . [facility] KCL (KLOR-CON M20) tablet 40 mEq 01-29 15:30: 00 01-29 16:35 :00 No 40meq 40 mEq, Oral, ONCE, 1 dose, Mon01/29/21 at 1030, Routine [facility] morpHINE injection 2 mg 01-29 05:30: 00 01-29 04:25 :00 No 2mg 2 mg, Slow IV Push, ONCE, 1 dose, Mon01/29/21 at 0030, Routine [facility] acidophilus 100 million cell tablet 01-29 00:00: 00 Yes [id number] 1g Take 1 tablet by mouth 2 (two) times daily. [facility] sulfamethox azole-trime thoprim (BACTRIM DS) 800-160 mg per tablet 01-29 00:00: 00 02-06 04:59 :00 No [id number] 1{tbl} Take 1 tablet by mouth 2 (two) times daily for 7 days. [facility] ALBUTEROL SULFATE INHALE 01-28 14:37: 52 Yes 1{puff} Inhale 1 Puff every 8 (eight) hours as needed for Other (Wheezing) . [facility] albuterol (PROVENTIL) 2.5 mg /3 mL (0.083 %) nebulizer solution 2.5 mg 01-28 14:37: 36 Yes 2.5mg 2.5 mg, Inhalation , Q6HPRN, Starting Poppy 01/28/21 at 0937, Until Discontinu ed, Shortness of Breath, Wheezing [facility] morpHINE injection 2 mg 01-28 13:17: 25 01-28 21:16 :25 No 2mg 2 mg, Slow IV Push, Q6HPRN, Starting Poppy 01/28/21 at 0817, Until Poppy 01/28/21 at 1616, Routine, Pain (scale 7-10) [facility] ketorolac (TORADOL) injection 30 mg 01-27 22:08: 51 01-27 22:09 :00 No 30mg 30 mg, Slow IV Push, PRN, 1 dose, Starting Mon01/27/21 at 1708, Until Mon01/27/21 at 1709, Routine, Pain (scale 4-6), PAC[facility] : MAURO PRUITT [facility] enoxaparin (LOVENOX) injection 40 mg 01-27 22:00: 00 Yes 40mg 40 mg, Subcutaneo us, DAILY, First dose on Mon01/27/21 at 1700, Until Discontinu ed, Routine [facility] morpHINE injection 2 mg 01-27 21:45: 35 01-27 22:22 :02 No 2mg 2 mg, Slow IV Push, Q5MIN PRN, 5 doses, Starting Mon01/27/21 at 1645, Until Mon01/27/21 at 1722, Routine, Pain (scale 4-6), PACU [facility] HYDROcodone -acetaminop hen (NORCO) 10-325 mg tablet 1 tablet 01-27 21:34: 03 Yes 1{tbl} 1 tablet, Oral, Q6HPRN, Starting Mon01/27/21 at 1634, Until Discontinu ed, Routine, Pain (scale 4-6) [facility] HYDROcodone -acetaminop hen (NORCO 5) 5-325 mg tablet 1 tablet 01-27 21:33: 48 Yes 1{tbl} 1 tablet, Oral, Q6HPRN, Starting Mon01/27/21 at 1633, Until Discontinu ed, Routine, Pain (scale 1-3) [facility] PHENYLephri ne 1000 mcg/10 mL in 0.9% NaCl syringe 01-27 21:16: 00 01-27 21:36 :50 No Slow IV Push, ONCE INTRA PROCEDURE, Starting Mon01/27/21 at 1616, Until Mon01/27/21 at 1636, Routine, Intra-op [facility] ondansetron (ZOFRAN (PF)) injection 01-27 21:14: 00 01-27 21:36 :50 No Slow IV Push, ONCE INTRA PROCEDURE, Starting Mon01/27/21 at 1614, Until Mon01/27/21 at 1636, Routine, Intra-op [facility] dexamethaso ne (DECADRON PHOSPHATE) injection 01-27 21:12: 00 01-27 21:36 :50 No IV Push, ONCE INTRA PROCEDURE, Starting Mon01/27/21 at 1612, Until Mon01/27/21 at 1636, Routine, Intra-op [facility] lidocaine 1% (XYLOCAINE) 100 mg/10 mL (1 %) injection 01-27 21:07: 00 01-27 21:36 :50 No Intravenou s, ONCE INTRA PROCEDURE, Starting Mon01/27/21 at 1607, Until Mon01/27/21 at 1636, Routine, Intra-op [facility] propofoL IV infusion 01-27 21:07: 00 01-27 21:36 :50 No Intravenou s, ONCE INTRA PROCEDURE, Starting Mon01/27/21 at 1607, Until Mon01/27/21 at 1636, Routine, Intra-op [facility] FENTanyl PF (SUBLIMAZE (PF)) injection 01-27 21:07: 00 01-27 21:36 :50 No Intravenou s, ONCE INTRA PROCEDURE, Starting Mon01/27/21 at 1607, Until Mon01/27/21 at 1636, Routine, Intra-op [facility] midazolam (VERSED) injection 01-27 20:57: 00 01-27 21:36 :50 No IV Push, ONCE INTRA PROCEDURE, Starting Mon01/27/21 at 1557, Until Mon01/27/21 at 1636, Routine, Intra-op [facility] lactated ringers IV infusion 01-27 20:57: 00 01-27 21:36 :50 No IV Infusion, CONTINUOUS PRN, Starting Mon01/27/21 at 1557, Until Mon01/27/21 at 1636, Routine, Intra-op [facility] vancomycin 1500 mg in NS 500 mL IV Piggyback RTU 1,500 mg 01-27 16:00: 00 Yes 1500mg 1,500 mg, IV Infusion, Q12H ABX, First dose on Mon01/27/21 at 1100, Until Discontinu ed
Reas on for Anti-Infec tive: Documented Infection< br>Documen mariah Infection Site: Skin / Soft Tissue
Duration of Therapy: 10 days [facility] piperacilli n-tazobacta m (ZOSYN) 3.375 g in NaCl 0.9% (NS) 100 mL MINI-BAG 01-27 13:00: 00 Yes 3.375g 3.375 g, IV Piggyback, Q6H ABX, First dose (after last reorder) on Mon01/27/21 at 0800, Until Discontinu ed, 100 mL
Reas on for Anti-Infec tive: Documented Infection< br>Documen mariah Infection Site: Skin / Soft Tissue
Duration of Therapy: Other (see Comments) [facility] NaCl 0.9% (NS) IV infusion 1,000 mL 01-27 11:45: 00 01-28 13:18 :05 No 1000mL at 125 mL/hr, IV Infusion, CONTINUOUS , Starting Mon01/27/21 at 0645, Until Poppy 01/28/21 at 0818, Routine [facility] NaCl 0.9% (NS) IV infusion 2,000 mL 01-27 07:15: 00 01-27 07:36 :00 No 2000mL at 125 mL/hr, IV Infusion, ONCE, 1 dose, Mon01/27/21 at 0215, Routine [facility] ondansetron (ZOFRAN (PF)) injection 4 mg 01-27 06:12: 31 Yes 4mg 4 mg, Slow IV Push, Q6HPRN, Starting Mon01/27/21 at 0112, Until Discontinu ed, Routine, Nausea and Vomiting (N/V) [facility] morpHINE injection 2 mg 01-27 06:12: 24 01-27 21:34 :15 No 2mg 2 mg, Slow IV Push, Q4HPRN, Starting Mon01/27/21 at 0112, Until Mon01/27/21 at 1634, Routine, Pain (scale 7-10) [facility] piperacilli n-tazobacta m (ZOSYN) 3.375 g in NaCl 0.9% (NS) 100 mL MINI-BAG 01-27 04:15: 00 01-27 03:40 :00 No 3.375g 3.375 g, IV Piggyback, ONCE, 1 dose, 01/26/21 at 2315, 100 mL
Reas on for Anti-Infec tive: Documented Infection< br>Documen mariah Infection Site: Skin / Soft Tissue
Duration of Therapy: Other (see Comments) [facility] vancomycin (VANCOCIN) 1,000 mg in NaCl 0.9% (NS) 250 mL VIAL-MATE IV piggyback 01-27 04:00: 00 01-27 04:57 :00 No 1000mg 1,000 mg, IV Piggyback, ONCE, 1 dose, 01/26/21 at 2300, 250 mL
Reas on for Anti-Infec tive: Documented Infection< br>Documen mariah Infection Site: Skin / Soft Tissue
Duration of Therapy: Other (see Comments) [facility] iopamidol (ISOVUE 370-500 mL) injection 120 mL 01-27 04:00: 00 01-27 02:50 :00 No [id number] 120mL 120 mL, Intravenou s, ONCE, 1 dose, 01/26/21 at 2300, Routine [facility] NaCl 0.9% (NS) bolus infusion 1,000 mL 01-27 03:45: 00 01-27 03:57 :00 No 1000mL at 999 mL/hr, 1,000 mL, IV Infusion, ONCE, 1 dose, 01/26/21 at 2245, STAT [facility] ondansetron (ZOFRAN (PF)) injection 4 mg 01-27 03:30: 00 01-27 02:19 :00 No 4mg 4 mg, Slow IV Push, ONCE, 1 dose, 01/26/21 at 2230, MICHAELA [facility] morpHINE injection 4 mg 01-27 03:30: 00 01-27 02:18 :00 No 4mg 4 mg, Slow IV Push, ONCE, 1 dose, Tu01/26/21 at 2230, STAT [facility] medroxyPROG ESTERone (DEPO-PROVE RA) injection 150 mg 10-19 18:00: 00 09-20 17:59 :00 No [id number] 150mg 150 mg, Intramuscu lar, [id number], 4 doses, First dose on Mon10/19/18 at 1200, Last dose on Mon06/28/19 at 1200, Routine [facility] albuterol 2.5 mg/0.5 mL nebulizer solution 10-25 00:00: 00 Yes 2.5mg Use 0.5 mL as directed every 6 (six) hours as needed for Wheezing. [facility] Immunizations Ordered Immunization Name Filled Immunization Name Date Status Comments Source Tdap Tdap 2024-03-01 00:00:00 Completed [facility] Influenza Virus Vaccine Quad .5 mL IM 6+ MO 2018-08-02 00:00:00 Completed [facility] Influenza Virus Vaccine Quad .5 mL IM 6+ MO 2018-08-02 00:00:00 Completed [facility] Influenza Virus Vaccine Quad .5 mL IM 6+ MO 2018-08-02 00:00:00 Completed [facility] Influenza Virus Vaccine Quad .5 mL IM 6+ MO 2018-08-02 00:00:00 Completed [facility] Influenza Virus Vaccine Quad .5 mL IM 6+ MO 2018-08-02 00:00:00 Completed [facility] Influenza Virus Vaccine Quad .5 mL IM 6+ MO 2018-08-02 00:00:00 Completed [facility] Influenza Virus Vaccine Quad .5 mL IM 6+ MO 2018-08-02 00:00:00 Completed [facility] Influenza Virus Vaccine Quad .5 mL IM 6+ MO 2018-08-02 00:00:00 Completed [facility] Influenza Virus Vaccine Quad .5 mL IM 6+ MO 2018-08-02 00:00:00 Completed [facility] Influenza Virus Vaccine Quad .5 mL IM 6+ MO 2018-08-02 00:00:00 Completed [facility] Influenza Virus Vaccine Quad .5 mL IM 6+ MO 2018-08-02 00:00:00 Completed [facility] Influenza Virus Vaccine Quad .5 mL IM 6+ MO 2018-08-02 00:00:00 Completed [facility] Influenza Virus Vaccine Quad .5 mL IM 6+ MO 2018-08-02 00:00:00 Completed [facility] Influenza Virus Vaccine Quad .5 mL IM 6+ MO 2018-08-02 00:00:00 Completed [facility] Influenza Virus Vaccine Quad .5 mL IM 6+ MO 2018-08-02 00:00:00 Completed [facility] Influenza Virus Vaccine Quad .5 mL IM 6+ MO 2018-08-02 00:00:00 Completed [facility] Influenza Virus Vaccine Quad .5 mL IM 6+ MO 2018-08-02 00:00:00 Completed [facility] TDAP 2018-06-19 00:00:00 Completed [facility] TDAP 2018-06-19 00:00:00 Completed [facility] TDAP 2018-06-19 00:00:00 Completed [facility] TDAP 2018-06-19 00:00:00 Completed [facility] TDAP 2018-06-19 00:00:00 Completed [facility] TDAP 2018-06-19 00:00:00 Completed [facility] TDAP 2018-06-19 00:00:00 Completed [facility] TDAP 2018-06-19 00:00:00 Completed [facility] TDAP 2018-06-19 00:00:00 Completed [facility] Tdap 2018-06-19 00:00:00 Completed [facility] TDAP 2018-06-19 00:00:00 Completed [facility] TDAP 2018-06-19 00:00:00 Completed [facility] TDAP 2018-06-19 00:00:00 Completed [facility] Tdap 2018-06-19 00:00:00 Completed [facility] TDAP 2018-06-19 00:00:00 Completed [facility] TDAP 2018-06-19 00:00:00 Completed [facility] TDAP 2018-06-19 00:00:00 Completed [facility] PPD (TB) 2017-03-22 00:00:00 Completed [facility] PPD (TB) 2017-03-22 00:00:00 Completed [facility] PPD (TB) 2017-03-22 00:00:00 Completed [facility] PPD (TB) 2017-03-22 00:00:00 Completed [facility] PPD (TB) 2017-03-22 00:00:00 Completed [facility] PPD (TB) 2017-03-22 00:00:00 Completed [facility] PPD (TB) 2017-03-22 00:00:00 Completed [facility] PPD (TB) 2017-03-22 00:00:00 Completed [facility] PPD (TB) 2017-03-22 00:00:00 Completed [facility] PPD (TB) 2017-03-22 00:00:00 Completed [facility] PPD (TB) 2017-03-22 00:00:00 Completed [facility] PPD (TB) 2017-03-22 00:00:00 Completed [facility] PPD (TB) 2017-03-22 00:00:00 Completed [facility] PPD (TB) 2017-03-22 00:00:00 Completed [facility] PPD (TB) 2017-03-22 00:00:00 Completed [facility] PPD (TB) 2017-03-22 00:00:00 Completed [facility] PPD (TB) 2017-03-22 00:00:00 Completed [facility] PPD (TB) 2017-03-22 00:00:00 Completed [facility] Vital Signs Vital Name Observation Time Observation Value Comments S ource Systolic blood pressure 2022-09-27 14:52:00 107 mm[Hg] [facility] Diastolic blood pressure 2022-09-27 14:52:00 78 mm[Hg] [facility] Heart rate 2022-09-27 14:52:00 66 /min [facility] Body temperature 2022-09-27 14:52:00 36.78 Brisa [facility] Respiratory rate 2022-09-27 14:52:00 18 /min [facility] Body height 2022-09-27 14:52:00 152.4 cm [facility] Body weight 2022-09-27 14:52:00 82.101 kg [facility] BMI 2022-09-27 14:52:00 35.35 kg/m2 [facility] Systolic blood pressure 2022-09-21 20:36:00 118 mm[Hg] [facility] Diastolic blood pressure 2022-09-21 20:36:00 78 mm[Hg] [facility] Heart rate 2022-09-21 20:36:00 104 /min Unive [facility] Body temperature 2022-09-21 20:36:00 36.61 Brisa [facility] Respiratory rate 2022-09-21 20:36:00 18 /min [facility] Body height 2022-09-21 20:36:00 [facility]4 [facility] Body weight 2022-09-21 20:36:00 82.725 kg [facility] BMI 2022-09-21 20:36:00 35.62 kg/m2 [facility] Systolic blood pressure 2022-09-20 22:20:00 124 mm[Hg] [facility] Diastolic blood pressure 2022-09-20 22:20:00 79 mm[Hg] [facility] Heart rate 2022-09-20 22:20:00 69 /min [facility] Respiratory rate 2022-09-20 22:20:00 18 /min [facility] Oxygen saturation in Arterial blood by Pulse oximetry 2022-09-20 22:20:00 98 /min [facility] Body temperature 2022-09-20 14:24:00 36.72 Brisa [facility] Body height 2022-09-20 14:24:00 152.4 cm [facility] Body weight 2022-09-20 14:24:00 81.647 [facility] BMI 2022-09-20 14:24:00 35.15 kg/m2 [facility] Heart rate 2021-11-10 01:00:00 91 /min [facility] Body temperature 2021-11-10 01:00:00 37.94 Brisa [facility] Oxygen saturation in Arterial blood by Pulse oximetry 2021-11-10 01:00:00 99 /min [facility] Systolic blood pressure 2021-11-10 00:31:00 104 mm[Hg] [facility] Diastolic blood pressure 2021-11-10 00:31:00 68 mm[Hg] [facility] Respiratory rate 2021-11-10 00:31:00 18 /min [facility] Body height 2021-11-09 22:23:00 157.5 cm [facility] Body weight 2021-11-09 22:23:00 72.576 kg [facility] BMI 2021-11-09 22:23:00 29.26 kg/m2 [facility] Systolic blood pressure 2021-08-06 10:41:00 116 mm[Hg] [facility] Diastolic blood pressure 2021-08-06 10:41:00 79 mm[Hg] [facility] Heart rate 2021-08-06 10:41:00 88 /min [facility] Respiratory rate 2021-08-06 10:41:00 22 /min [facility] Oxygen saturation in Arterial blood by Pulse oximetry 2021-08-06 10:41:00 97 /min [facility] Body temperature 2021-08-06 06:47:00 37.33 Brisa [facility] Body height 2021-08-06 06:47:00 149.9 cm [facility] Body weight 2021-08-06 06:47:00 83.915 kg [facility] BMI 2021-08-06 06:47:00 37.37 kg/m2 [facility] Systolic blood pressure 2021-02-16 21:26:00 125 mm[Hg] [facility] Diastolic blood pressure 2021-02-16 21:26:00 87 mm[Hg] [facility] Heart rate 2021-02-16 21:26:00 80 /min [facility] Body temperature 2021-02-16 21:26:00 36.33 Brisa [facility] Respiratory rate 2021-02-16 21:26:00 16 /min [facility] Body weight 2021-02-16 21:26:00 81.194 [facility] BMI 2021-02-16 21:26:00 36.09 kg/m2 [facility] Oxygen saturation in Arterial blood by Pulse oximetry 2021-02-16 21:26:00 99 /min [facility] Systolic blood pressure 2021-01-29 16:17:00 112 mm[Hg] [facility] Diastolic blood pressure 2021-01-29 16:17:00 79 mm[Hg] [facility] Body temperature 2021-01-29 16:17:00 36.72 Brisa [facility] Respiratory rate 2021-01-29 16:17:00 18 /min [facility] Oxygen saturation in Arterial blood by Pulse oximetry 2021-01-29 16:17:00 100 /min [facility] Heart rate 2021-01-29 14:00:00 77 /min [facility] 2021-01-28 08:45:00 84.959 [facility] BMI 2021-01-28 08:45:00 37.76 kg/m2 [facility] Body height 2021-01-27 20:48:00 150 cm [facility] Body height 2021-01-27 20:48:00 150 cm [facility] Body weight 2021-01-27 20:48:00 86.2 kg [facility] BMI 2021-01-27 20:48:00 37.76 kg/m2 [facility] Systolic blood pressure 2021-01-27 20:05:00 108 mm[Hg] [place] [facility] Diastolic blood pressure 2021-01-27 20:05:00 67 mm[Hg] [place] [facility] Heart rate 2021-01-27 20:05:00 90 /min [facility] Body temperature 2021-01-27 20:05:00 36.67 Brisa [facility] Respiratory rate 2021-01-27 20:05:00 20 /min [facility] Oxygen saturation in Arterial blood by Pulse oximetry 2021-01-27 20:05:00 100 /min [facility] Systolic blood pressure 2019-04-22 19:06:00 130 mm[Hg] [facility] Diastolic blood pressure 2019-04-22 19:06:00 82 mm[Hg] [facility] Heart rate 2019-04-22 19:06:00 84 /min [facility] Body temperature 2019-04-22 19:06:00 36 Brisa [facility] Respiratory rate 2019-04-22 19:06:00 16 /min [facility] Body height 2019-04-22 19:06:00 152.4 cm [facility] Body weight 2019-04-22 19:06:00 85.503 [facility] BMI 2019-04-22 19:06:00 36.81 kg/m2 [facility] BP Systolic 2025-05-23 14:20:00 113 mm[Hg] Step hen F Rolly BP Diastolic 2025-05-23 14:20:00 77 mm[Hg] Sameer phen F Rolly Weight Measured 2025-05-23 14:20:00 175.80 pounds Peter F Rolly Height Measured 2025-05-23 14:20:00 61.00 inches Peter F Rolly Body Temperature 2025-05-23 14:20:00 98.10 degrees Peter F Rolly Heart Rate 2025-05-23 14:20:00 78.00 /min Aparna en F Rolly Respiratory Rate 2025-05-23 14:20:00 17.00 /min Peter F Rolly BP Systolic 2025-05-09 14:56:00 102 mm[Hg] Step hen F Rolly BP Diastolic 2025-05-09 14:56:00 70 mm[Hg] Sameer phen F Rolly Weight Measured 2025-05-09 14:56:00 108.20 pounds Peter F Rolly Height Measured 2025-05-09 14:56:00 61.00 inches Peter F Rolly Body Temperature 2025-05-09 14:56:00 97.50 degrees Peter F Rolly Heart Rate 2025-05-09 14:56:00 86.00 /min Aparna en F Rolly Respiratory Rate 2025-05-09 14:56:00 Peter F Rolly BP Systolic 2025-04-25 13:43:00 110 mm[Hg] Step hen F Rolly BP Diastolic 2025-04-25 13:43:00 68 mm[Hg] Sameer phen F Rolly Weight Measured 2025-04-25 13:43:00 183.20 pounds Peter F Rolly Height Measured 2025-04-25 13:43:00 61.00 inches Peter F Rolly Body Temperature 2025-04-25 13:43:00 98.20 degrees Peter F Rolly Heart Rate 2025-04-25 13:43:00 85.00 /min Aparna en F Rolly Respiratory Rate 2025-04-25 13:43:00 18.00 /min Peter F Rolly BP Systolic 2025-04-23 11:15:00 115 mm[Hg] Step hen F Rolly BP Diastolic 2025-04-23 11:15:00 75 mm[Hg] Sameer phen F Rolly Weight Measured 2025-04-23 11:15:00 187.80 pounds Peter F Rolly Height Measured 2025-04-23 11:15:00 61.00 inches Peter F Rolly Body Temperature 2025-04-23 11:15:00 98.30 degrees Peter F Rolly Heart Rate 2025-04-23 11:15:00 75.00 /min Aparna en F Rolly Respiratory Rate 2025-04-23 11:15:00 18.00 /min Peter F Rolly BP Systolic 2025-04-21 09:14:00 96 mm[Hg] Step hen F Rolly BP Diastolic 2025-04-21 09:14:00 67 mm[Hg] Sameer phen F Rolly Weight Measured 2025-04-21 09:14:00 188.60 pounds Peter F Rolly Height Measured 2025-04-21 09:14:00 61.00 inches Peter F Rolly Body Temperature 2025-04-21 09:14:00 98.20 degrees Peter F Rolly Heart Rate 2025-04-21 09:14:00 74.00 /min Aparna en F Rolly Respiratory Rate 2025-04-21 09:14:00 Peter F Rolly BP Systolic 2025-04-17 09:12:00 100 mm[Hg] Step [...] Measured 2024-04-22 09:24:00 61.00 inches Peter F Rolly Body Temperature 2024-04-22 09:24:00 98.20 degrees Peter [...] Rolly Body Temperature 2024-04-12 10:26:00 98.50 degrees Peetr F Rolly Heart Rate 2024-04-12 10:26:00 94.00 [...] Rolly Body Temperature 2024-03-25 11:33:00 98.20 degrees Peter F Rolly Heart Rate 2024-03-25 11:33:00 99.00 [...] Date / Time Performed Performing Clinician Source [id number] 2024-05-05 00:00:00 LATOSHA [facility] POCT TEST 2022-09-27 15:38:00 Nayla Ventura [facility] POCT TEST 2022-09-27 00:00:00 Nayla Ventura [facility] GLUCOSE 1 HOUR POST PRANDIAL 2022-09-22 15:21:00 Joanie Villalobos [facility] TOTAL BETA HCG ASSAY 2022-09-21 21:30:00 Sedrick Villalobos [facility] CBC WITH DIFF 2022-09-21 21:30:00 Joanie Villalobos [facility] HEPATITIS B SURFACE ANTIGEN 2022-09-21 21:30:00 Joanie Villalobos [facility] HCV ANTIBODY 2022-09-21 21:30:00 Joanie Villalobos [facility] HB ABO GROUPING 2022-09-21 21:30:00 Joanie Villalobos [facility] HIV 1/2 AG-AB WITH REFLEX 2022-09-21 21:30:00 Joanie Villalobos [facility] PAP SMEAR-LIQUID BASED-CP 2022-09-21 21:30:00 Joanie Villalobos [facility] POCT TEST 2022-09-21 20:29:00 Jorge Villalobos [facility] POCT URINALYSIS W/O SPECIFIC GRAVITY 2022-09-21 20:29:00 Joanie Villalobos [facility] ADC CLC OR LCC ONLY - WET PREP 2022-09-20 22:24:00 Leeanna Naranjo [facility] FIRST TRIMESTER LESS THAN 14 WEEKS WITH TRANSVAGINAL 2022-09-20 20:12:04 Lee Ann Hussein [facility] URINALYSIS 2022-09-20 15:15:00 [facility] LIPASE 2022-09-20 15:11:00 Lee Ann [facility] TEST, SERUM 2022-09-20 15:11:00 Itz Hussein [facility] COMP. METABOLIC PANEL (11075) 2022-09-20 15:11:00 Lee Ann Hussein [facility] TOTAL BETA HCG ASSAY 2022-09-20 15:11:00 Lexie Hussein [facility] CBC WITH DIFF 2022-09-20 15:11:00 [facility] PROTHROMBIN TIME / INR 2022-09-20 15:11:00 Tristen Hussein [facility] ACTIVATED PARTIAL THRMPLAS FLORA 2022-09-20 15:11:00 Lee Ann Hussein [facility] CONSENT/REFUSAL FOR DIAGNOSIS AND TREATMENT 2022-09-20 14:05:15 Doctor Unassigned, [place] [facility] XR CHEST 1 VW 2021-11-09 23:31:00 Misty Hooker [facility] CBC WITH DIFF 2021-11-09 23:31:00 Misty Hooker [facility] POCT TEST 2021-11-09 23:21:00 Talya Hooker [facility] URINALYSIS 2021-11-09 23:19:00 [facility] 2021-11-09 23:19:00 Talya Hooker [facility] COVID-19 (ID NOW RAPID TESTING) 2021-11-09 23:19:00 Briana Hookeranne [facility] LIPASE 2021-11-09 23:13:00 Walter [facility] COMP. METABOLIC PANEL (68169) 2021-11-09 23:13:00 Misty Hooker [facility] NOTICE OF PRIVACY PRACTICES 2021-11-09 22:13:35 Doctor Unassigned, [place] [facility] CONSENT/REFUSAL FOR DIAGNOSIS AND TREATMENT 2021-11-09 22:13:21 Doctor Unassigned, [place] [facility] XR CHEST 1 VW 2021-08-06 09:20:00 Otilia Britton [facility] RAPID INFLUENZA A/B 2021-08-06 08:25:00 Otilia Britton [facility] COVID-19 (ID NOW RAPID TESTING) 2021-08-06 08:25:00 Otilia Britton [facility] BASIC METABOLIC PANEL (NA, K, CL, CO2, GLUCOSE, BUN, CREATININE, CA) 2021-01-29 10:37:00 Chinedu Fragoso [facility] CBC WITH DIFF 2021-01-29 10:37:00 Chinedu Fragoso [facility] VANCOMYCIN TROUGH 2021-01-29 03:57:00 Leeroy Mae [facility] BASIC METABOLIC PANEL (NA, K, CL, CO2, GLUCOSE, BUN, CREATININE, CA) 2021-01-28 10:27:00 Madina [facility] CBC WITH DIFF 2021-01-28 10:27:00 Madina [facility] BASIC METABOLIC PANEL (NA, K, CL, CO2, GLUCOSE, BUN, CREATININE, CA) 2021-01-28 10:27:00 Madina [facility] CBC WITH DIFF 2021-01-28 [facility] 2021-01-27 21:23:47 Gian Negrete [facility] ASPIRATE OR ABSCESS CULTURE(AEROBIC/ANAEROBIC) 2021-01-27 21:22:56 Marva Holcomb [facility] ASPIRATE OR ABSCESS CULTURE(AEROBIC/ANAEROBIC) 2021-01-27 21:22:56 Marva Holcomb [facility] INCISION AND DRAINAGE BUTTOCK 2021-01-27 20:50:00 Marva Holcomb [facility] INCISION AND DRAINAGE BUTTOCK 2021-01-27 20:50:00 Marva Holcomb [facility] XR CHEST 1 VW 2021-01-27 05:56:15 Madina [facility] XR CHEST 1 VW 2021-01-27 05:56:15 Madina [facility] LACTIC ACID WHOLE BLOOD 2021-01-27 05:47:00 Jon Britton [facility] LACTIC ACID WHOLE BLOOD 2021-01-27 05:47:00 Jon Britton [facility] COVID-19 (ID NOW RAPID TESTING) 2021-01-27 04:33:00 Otilia Britton [facility] COVID-19 (ID NOW RAPID TESTING) 2021-01-27 04:33:00 Otilia Britton [facility] CT PELVIS W CONTRAST 2021-01-27 02:56:37 Otil[address]on [facility] [address] PELVIS W CONTRAST 2021-01-27 02:56:37 Otilia Britton [facility] POCT TEST 2021-01-27 02:30:00 Otilia Britton [facility] POCT TEST 2021-01-27 02:30:00 Otilia Britton [facility] BLOOD CULTURE SCREEN 2021-01-27 02:20:00 Otilia Britton [facility] BLOOD CULTURE SCREEN 2021-01-27 02:20:00 Otilia Britton [facility] HEPATIC FUNCTION PANEL (87238) (ALB,T.PRO,BILI T,BU/BC,ALT,AST,ALK PHOS) 2021-01-27 02:09:00 Madina [facility] BASIC METABOLIC PANEL (NA, K, CL, CO2, GLUCOSE, BUN, CREATININE, CA) 2021-01-27 02:09:00 Otilia Britton [facility] CBC WITH DIFF 2021-01-27 02:09:00 Otilia Britton [facility] LACTIC ACID WHOLE BLOOD 2021-01-27 02:09:00 Jon Britton [facility] HEPATIC FUNCTION PANEL (82037) (ALB,T.PRO,BILI T,BU/BC,ALT,AST,ALK PHOS) 2021-01-27 [facility]:09[facility] (NA, K, CL, CO2, GLUCOSE, BUN, CREATININE, CA) 2021-01-27 02:09:00 Otilia Britton [facility] CBC WITH DIFF 2021-01-27 02:09:00 Otilia Britton [facility] LACTIC ACID WHOLE BLOOD 2021-01-27 02:09:00 Jon Britton [facility] BLOOD CULTURE SCREEN 2021-01-27 02:08:00 Otilia Britton [facility] BLOOD CULTURE SCREEN 2021-01-27 02:08:00 Otilia Britton [facility] CONSENT/REFUSAL FOR DIAGNOSIS AND TREATMENT 2021-01-27 01:14:15 Doctor Unassigned, [place] [facility] CONSENT/REFUSAL FOR DIAGNOSIS AND TREATMENT 2021-01-27 01:14:15 Doctor Unassigned, [place] [facility] NOTICE OF PRIVACY PRACTICES 2021-01-27 01:13:39 Doctor Unassigned, [place] [facility] NOTICE OF PRIVACY PRACTICES 2021-01-27 01:13:39 Doctor Unassigned, [place] [facility] POCT TEST 2019-04-22 23:07:00 Jorge Villalobos [facility] NO SHOW OR MISSED APPOINTMENT POLICY ACKNOWLEDGEMENT 2019-04-22 18:55:00 Doctor Unassigned, [place] [facility] Encounters Start Date/Time End Date/Time Encounter Type Admission Type Attending [facility] Facility Care Department Encounter ID Source 2024-05-06 18:00:00 Inpatient Damaso Lyons [facility] [id number] [facility] 2021-06-27 22:32:36 Emergency [facility] [id number] [facility] 2025-05-23 14:16:32 2025-05-23 14:16:[address] [facility] [id number] Peter Romero Rolly 2025-05-23 00:00:00 2025-05-23 00:00:00 Outpatient Visit SFA [id number] Peter Romero Rolly 2025-05-09 14:50:30 2025-05-09 14:50:[address] [facility] [id number] Peter F Rolly 2025-05-02 10:50:48 2025-05-02 10:50:48 Outpatient SFA LEILANI [id number] Peter F Rolly 2025-04-25 13:38:56 2025-04-25 13:38:56 Outpatient SFA [facility] [id number] Peter Lofton 2025-04-25 00:00:00 2025-04-25 00:00:00 Outpatient Visit SFA [id number] Peter Lofton 2025-04-24 11:30:32 2025-04-24 11:30:32 Outpatient SFA SFA [id number] Peter Lofton 2025-04-23 11:03:18 2025-04-23 11:03:18 Outpatient SFA SFA [id number] Peter Lofton 2025-04-23 00:00:00 2025-04-23 00:00:00 Outpatient Visit SFA [id number] Peter Lofton 2025-04-21 08:57:57 2025-04-21 08:57:57 Outpatient SFA [facility] [id number] Peter Lofton 2025-04-21 00:00:00 2025-04-21 00:00:00 Outpatient Visit SFA [id number] Peter Lofton 2025-04-17 09:04:26 2025-04-17 09:04:26 Outpatient SFA SFA [id number] Peter Romero Rolly 2025-04-17 00:00:00 2025-04-17 00:00:00 Outpatient Visit SFA [id number] Peter Romero Rolly 2025-04-14 08:25:21 2025-04-14 08:25:21 Outpatient SFA SFA [id number] Peter Romero Rolly 2025-04-14 00:00:00 2025-04-14 00:00:00 Outpatient Visit SFA [id number] Peter Lofton 2025-04-01 16:07:13 2025-04-01 16:07:[address] [facility] [id number] Peter Lofton 2025-04-01 00:00:00 2025-04-01 00:00:[address] [facility] [id number] Peter Lofton 2024-11-26 08:37:21 2024-11-26 08:37:[address] [facility] [id number] Peter Lofton 2018-06-12 00:00:00 2024-10-12 03:14:17 Orders Only Salecdo, Prisciliana Salcedo, Prisciliana [facility] ANESTHESIA RESIDENT [facility] MATERNAL & CHILD [facility] [id number] [facility] 2018-06-14 00:00:00 2024-10-12 03:14:13 Orders Only Salcedo, Prisciliana Salcedo, Prisciliana [facility] ANESTHESIA RESIDENT [facility] & CHILD [facility] [id number] [facility] 2024-06-25 14:21:45 2024-06-25 14:21:[address] [facility] [id number] Peter Lofton 2024-05-24 14:27:43 2024-05-24 14:27:[address] [facility] [id number] Peter Lofton 2024-05-05 03:01:00 2024-05-07 20:30:00 Inpatient EM Damaso Zee [facility] OBPP [id number] [facility] 2024-04-22 12:26:00 2024-04-22 13:20:00 Emergency EM Meghan Streeter [facility] CAREY [id number] [facility] 2024-04-22 09:17:09 2024-04-22 09:17:09 Outpatient SFA SFA [id number] Peter Lofton 2024-04-22 00:00:00 2024-04-22 00:00:00 Outpatient Visit SFA [id number] Peter Lofton 2024-04-12 10:26:15 2024-04-12 10:26:15 Outpatient SFA SFA [id number] Peter Lofton 2024-04-12 00:00:00 2024-04-12 00:00:00 Outpatient Visit SFA [id number] Peter Lofton 2024-04-11 10:21:46 2024-04-11 10:21:46 Outpatient SFA SFA [id number] Peter Lofton 2024-04-11 00:00:00 2024-04-11 00:00:00 Outpatient Visit SFA [id number] Peter Lofton 2024-03-29 10:57:00 2024-03-29 10:57:00 Outpatient SFA SFA [id number] Peter Lofton 2024-03-29 00:00:00 2024-03-29 00:00:00 Outpatient Visit SFA [id number] Peter Lofton 2024-03-25 11:11:56 2024-03-25 11:11:56 Outpatient SFA SFA [id number] Peter Lofton 2024-03-25 00:00:00 2024-03-25 00:00:00 Outpatient Visit SFA [id number] Peter Lofton 2024-03-15 10:32:33 2024-03-15 10:32:33 Outpatient SFA SFA [id number] Peter Lofton 2024-03-15 00:00:00 2024-03-15 00:00:00 Outpatient Visit SFA [id number] Peter Lofton 2024-03-01 00:00:00 2024-03-01 00:00:00 Outpatient Visit SFA [id number] Peter Lofton 2024-02-21 15:18:04 2024-02-21 15:18:04 Outpatient SFA SFA [id number] Peter Lofton 2024-02-21 00:00:00 2024-02-21 00:00:00 Outpatient Visit SFA [id number] Peter Lofton 2024-02-09 10:25:08 2024-02-09 10:25:08 Outpatient SFA SFA [id number] Peter Lofton 2024-02-09 00:00:00 2024-02-09 00:00:00 Outpatient Visit SFA [id number] Peter Lofton 2024-01-12 10:14:59 2024-01-12 10:14:59 Outpatient SFA SFA [id number] Peter Lofton 2024-01-12 00:00:00 2024-01-12 00:00:00 Outpatient Visit SFA [id number] Peter Lofton 2023-12-27 13:31:36 2023-12-27 13:31:36 Outpatient SFA SFA [id number] Peter Lofton 2023-12-20 08:57:27 2023-12-20 08:57:27 Outpatient SFA SFA [id number] Peter Lofton 2023-12-15 11:09:28 2023-12-15 11:09:28 Outpatient SFA SFA [id number] Peter Lofton 2023-12-15 00:00:00 2023-12-15 00:00:00 Outpatient Visit SFA [id number] Peter Lofton 2023-12-12 17:11:25 2023-12-12 17:11:25 Outpatient SFA SFA [id number] Peter Lofton 2023-12-12 00:00:00 2023-12-12 00:00:00 Outpatient Visit SFA [id number] Peter Lofton 2023-11-06 08:40:08 2023-11-06 08:40:08 Outpatient SFA SFA [id number] Peter Lofton 2023-10-31 08:41:42 2023-10-31 08:41:42 Outpatient SFA SFA [id number] Peter Lofton 2023-10-27 16:36:05 2023-10-27 16:36:05 Outpatient SFA SFA [id number] Peter Lofton 2023-10-19 08:37:30 2023-10-19 08:37:30 Outpatient SFA SFA [id number] Peter Lofton 2023-10-07 09:40:05 2023-10-07 09:40:05 Outpatient SFA SFA [id number] Peter Lofton 2023-10-05 11:37:17 2023-10-05 11:37:17 Outpatient SFA SFA [id number] Peter Lofton 2023-09-27 14:30:58 2023-09-27 14:30:58 Outpatient SFA SFA [id number] Peter Lofton 2023-09-20 09:14:08 2023-09-20 09:14:08 Outpatient SFA SFA 24 Peter Lofton 2023-09-18 14:23:01 2023-09-18 14:23:01 Outpatient SFA SFA [id number] Peter Lofton 2022-10-20 09:00:00 2022-10-20 09:00:00 Outpatient JOANIE SCHULTZ [facility] [id number] [facility] 2022-10-11 10:45:00 2022-10-11 15:58:23 Outpatient R HANH MCDONALD [facility] [id number] [facility] 2022-10-11 10:45:00 2022-10-11 15:58:23 Telemedici ne Visit Trimester, [facility] Harry Virginie [facility] 1.0.114 [id number] [facility] 2022-09-27 08:45:00 2022-09-27 09:49:09 Outpatient R LAVON ROBB [facility] [id number] [facility] 2022-09-27 08:45:00 2022-09-27 09:49:09 Routine Visit Trimester, [facility] Lavon Robb [facility] 1.114 [id number] [facility] 2022-09-26 08:15:00 2022-09-26 08:40:50 Outpatient R JOANIE VILLALOBOS [facility] [id number] [facility] 2022-09-26 08:15:00 2022-09-26 08:40:50 Creel Clerk [facility] [facility] Joanie Villalobos [facility] ANESTHESIA RESIDENT [facility] & CHILD [facility] 1..114 350.1.13.10 4.2.7.2.686 [id number] [facility] 2022-09-23 00:00:00 2022-09-23 00:00:00 Telephone Joanie Villalobos [facility] ANESTHESIA RESIDENT [facility] & CHILD [facility] 1.840.114 350.1.13.10 4.2.7.2.686 [id number] [facility] 2022-09-22 08:30:00 2022-09-22 08:30:00 Creel Clerk Visit Lab, Ang-Rmchp Joanie Villalobos [facility] ANESTHESIA RESIDENT [facility] MATERNAL & CHILD HEALTH [facility] 1.84.114 350.1.13.10 4.2.7.2.686 [id number] [facility] 2022-09-22 08:30:00 2022-09-22 08:29:14 Outpatient R JOANIE VILLALOBOS [facility] [id number] [facility] 2022-09-21 14:15:00 2022-09-21 15:35:56 Outpatient R JOANIE VILLALOBOS [facility] [id number] [facility] 2022-09-21 14:15:00 2022-09-21 15:35:56 Initial Visit Joanie Villalobos [facility] ANESTHESIA RESIDENT [facility] MATERNAL & CHILD [facility] 1.84.114 350.1.13.10 4.2.7.2.686 [id number] [facility] 2022-09-20 08:20:00 2022-09-20 16:48:00 Emergency X KEENANLEE ANN [facility] ERT [id number] [facility] 2022-09-20 08:20:00 2022-09-20 16:48:00 Emergency KeenanLee Ann [facility] 1.84.114 350.1.13.10 4.2.7.2.686 [id number] [facility] 2021-11-09 17:29:00 2021-11-09 20:21:00 Emergency X WALTER MISTY [facility] ERT [id number] [facility] 2021-11-09 17:29:00 2021-11-09 20:21:00 Emergency Hooker Misty [facility] 1.0.114 350.1.13.10 4.2.7.2.686 [id number] [facility] 2021-10-23 09:30:00 2021-10-23 09:30:00 Outpatient R HUGGINS JEMALISRA [facility] [id number] [facility] 2021-08-06 00:30:00 2021-08-06 04:47:00 Emergency X BRITTONOTILIA [facility] ERT [id number] [facility] 2021-08-06 00:30:00 2021-08-06 04:47:00 Emergency Otilia Britton [facility] 1.840.114 350.1.13.10 4.2.7.2.686 [id number] [facility] 2021-02-16 16:00:00 2021-02-16 17:01:15 Outpatient R RENAY MARVA [facility] [id number] [facility] 2021-02-16 15:56:33 2021-02-16 17:01:15 Office Visit Marva Holcomb [facility] 1.840.114 350.1.13.10 4.2.7.2.686 [id number] [facility] 2021-02-03 00:00:00 2021-02-03 00:00:00 Patient Outreach Elena Gaines [facility] 1.84.114 350.1.13.10 4.2.7.2.686 [id number] [facility] 2021-02-01 00:00:00 2021-02-01 00:00:00 Transition of Care Yaima Julio 1.284.114 350.1.13.10 4.2.7.2.686 [id number] [facility] 2021-01-26 20:38:00 2021-01-29 12:24:00 Hospital Encounter Otilia Britton [facility] 1.2.840.114 350.1.13.10 4.2.7.2.686 [id number] [facility] 2021-01-27 15:57:00 2021-01-27 16:36:00 Anesthesia Event Mauro Pruitt [facility] 1.2.840.114 350.1.13.10 4.2.7.2.686 [id number] [facility] 2021-01-27 15:30:00 2021-01-27 16:29:00 Surgery Marva Holcomb [facility] 1.2.840.114 350.1.13.10 4.2.7.2.686 [id number] [facility] 2019-04-22 13:54:22 2019-04-22 14:17:45 Nurse Visit Visit, Ang-Rmchp Nurse Joanie Villalobos [facility] ANESTHESIA RESIDENT [facility] 1.2.840.114 350.1.13.10 4.2.7.2.686 [id number] [facility] 2019-04-22 00:00:00 2019-04-22 00:00:00 Orders Only Doctor Unassigned, [place] [facility] 1.2.840.114 350.1.13.10 4.2.7.2.686 [id number] [facility] Results Test Description Test Time Test Comments Results Result Co mments Source Peter Nick Rios, [id number] 00:00:00* Test Item Value Reference Range Interpretation Comme nts IRON, TOTAL (test code = 2498-4) 22 mcg/dL Peter LoftonCBC (INCLUDES DIFF/PLT)2025-05-10 00:00:00* Test Item Value Reference Range Interpretation Comme nts WHITE BLOOD CELL COUNT (test code = 6690-2) 7.8 Thousand/uL RED BLOOD CELL COUNT (test code = 789-8) 3.70 Million/uL HEMOGLOBIN (test code = 718-7) 9.5 g/dL HEMATOCRIT (test code = 4544-3) 31.6 % MCV (test code = 787-2) 85.4 fL MCH (test code = 785-6) 25.7 pg MCHC (test code = 786-4) 30.1 g/dL RDW (test code = 788-0) 12.9 % PLATELET COUNT (test code = 777-3) 420 Thousand/uL MPV (test code = 776-5) 10.7 fL ABSOLUTE NEUTROPHILS (test code = 751-8) 4664 cells/uL ABSOLUTE BAND NEUTROPHILS (test code = 46916-5) DNR cells/uL ABSOLUTE METAMYELOCYTES (raghavendra t code = 46923-9) DNR cells/uL ABSOLUTE MYELOCYTES (test code = 37511-2) DNR cells/uL ABSOLUTE PROMYELOCYTES (test code = 03419-6) DNR cells/uL ABSOLUTE LYMPHOCYTES (test code = 731-0) 2543 cells/uL ABSOLUTE MONOCYTES (test cod e = 742-7) 452 cells/uL ABSOLUTE EOSINOPHILS (test code = 711-2) 109 cells/uL ABSOLUTE BASOPHILS (test cod e = 704-7) 31 cells/uL ABSOLUTE BLASTS (test code = 32892-3) DNR cells/uL ABSOLUTE NUCLEATED RBC (test code = 53331-9) DNR cells/uL NEUTROPHILS (test code = 770-8) 59.8 % BAND NEUTROPHILS (test code = 764-1) DNR % METAMYELOCYTES (test code = 740-1) DNR % MYELOCYTES (test code = 749-2) DNR % PROMYELOCYTES (test code = 783-1) DNR % LYMPHOCYTES (test code = 736-9) 32.6 % REACTIVE LYMPHOCYTES (test code = 18673-4) DNR % MONOCYTES (test code = 5905-5) 5.8 % EOSINOPHILS (test code = 713-8) 1.4 % BASOPHILS (test code = 706-2) 0.4 % BLASTS (test code = 709-6) DNR % NUCLEATED RBC (test code = 80259-2) DNR /100WBC COMMENT(S) (test code = 8251-1) DNR Peter Romero [id number] 00:00:00* Test Item Value Reference Range Interpretation Comme nts HAPTOGLOBIN (test code = 4542-7) 143 mg/dL Peter LoftonVITAMIN B12/FOLATE, SERUM [id number] 00:00:00* Test Item Value Reference Range Interpretation Comme nts VITAMIN B12 (test code = 2132-9) 577 pg/mL FOLATE, SERUM (test code = 2284-8) 17.7 ng/mL Peter LoftonCA 00:00:00* Test Item Value Reference Range Interpretation Comme nts CA 125 (test code = 01081-9) 68 U/mL Peter [id number] 00:00:00* Test Item Value Reference Range Interpretation Comme nts CEA (test code = 2038-6) <2.0 ng/mL Peter LoftonIRON, TIBC AND FERRITIN [id number] 00:00:00* Test Item Value Reference Range Interpretation Comme nts IRON, TOTAL (test code = 2498-4) 17 mcg/dL IRON BINDING CAPACITY (test code = 2500-7) 413 mcg/dL(calc) % SATURATION (test code = 2502-3) 4 %(calc) FERRITIN (test code = 2276-4) 5 ng/mL Peter [id number] 00:00:00* Test Item Value Reference Range Interpretation Comme nts LD (test code = 84213-5) 121 U/L Peter LoftonCA 00:00:00* Test Item Value Reference Range Interpretation Comme nts CA 125 (test code = 44441-0) 165 U/mL Peter Romero AustinCEA [ADDED]2025-04-22 00:00:00* Test Item Value Reference Range Interpretation Comme nts CEA (test code = 2038-6) <2.0 ng/mL Peter Romero AustinCA 00:00:00* Test Item Value Reference Range Interpretation Comme nts CA 125 (test code = 09633-4) 165 U/mL Peter Romero AustinCEA [ADDED]2025-04-22 00:00:00* Test Item Value Reference Range Interpretation Comme nts CEA (test code = 2038-6) <2.0 ng/mL Peter Joy [id number] 00:00:00* Test Item Value Reference Range Interpretation Comme nts CA 125 (test code = 51056-7) 165 U/mL Peter LoftonCEA [ADDED]2025-04-22 00:00:00* Test Item Value Reference Range Interpretation Comme nts CEA (test code = 2039-6) <2.0 ng/mL Peter LoftonCULTURE, URINE, [id number] 00:00:00* Test Item Value Reference Range Interpretation Comme nts CULTURE, URINE, ROUTINE (raghavendra t code = 630-4) SEE NOTE Peter Romero AustinCULTURE, URINE, [id number] 00:00:00* Test Item Value Reference Range Interpretation Comme nts CULTURE, URINE, ROUTINE (raghavendra t code = 630-4) SEE NOTE Peter Romero AustinCULTURE, URINE, [id number] 00:00:00* Test Item Value Reference Range Interpretation Comme nts CULTURE, URINE, ROUTINE (raghavendra t code = 630-4) SEE NOTE Peter LoftonCULTURE, URINE, [id number] 00:00:00* Test Item Value Reference Range Interpretation Comme nts CULTURE, URINE, ROUTINE (raghavendra t code = 630-4) SEE NOTE Peter LoftonCBC W/AUTO [id number] 06:00:00* Test Item Value Reference Range Interpretation Comme nts WHITE BLOOD CELL (test code = WBC) 11.9 x10 3/uL 4.5-11.0 H RED BLOOD CELL (test code = RBC) 3.60 x10 6/uL 3.54-5.02 N HEMOGLOBIN (test code = HGB) 9.0 g/dL 11.0-15.0 L HEMATOCRIT (test code = HCT) 29.2 % 33.0-45.0 L MEAN CELL VOLUME (test code = MCV) 81.1 fL 81.0-99.0 N MEAN CELL HGB (test code = MCH) 25.0 pg 27.0-33.0 L MEAN CELL HGB CONCETRATION (test code = MCHC) 30.8 g/dL 33.0-37.0 L RED CELL DISTRIBUTION WIDTH CV (test code = RDW) 17.2 % 11.5-14.5 H RED CELL DISTRIBUTION WIDTH SD (test code = RDW-SD) 49.4 fL 37.0-54.0 N PLATELET COUNT (test code = PLT) 175 x10 3/uL 150-400 N MEAN PLATELET VOLUME (test c ode = MPV) 12.0 fL 7.0-9.0 H NEUTROPHIL % (test code = NT%) 74.1 % 56.0-77.0 N IMMATURE GRANULOCYTE % (test code = IG%) 0.5 % 0.0-2.0 N LYMPHOCYTE % (test code = LY%) 18.8 % 14.0-32.0 N MONOCYTE % (test code = MO%) 5.4 % 4.8-9.0 N EOSINOPHIL % (test code = EO%) 0.9 % 0.3-3.7 N BASOPHIL % (test code = BA%) 0.3 % 0.0-2.0 N NUCLEATED RBC % (test code = NRBC%) 0.0 % 0-0 N NEUTROPHIL # (test code = NT#) 8.83 x10 3/uL 2.0-7.6 H IMMATURE GRANULOCYTE # (test code = IG#) 0.06 x10 3/uL 0.00-0.03 H LYMPHOCYTE # (test code = LY#) 2.24 x10 3/uL 1.0-3.8 N MONOCYTE # (test code = MO#) 0.64 x10 3/uL 0.1-0.8 N EOSINOPHIL # (test code = EO#) 0.11 x10 3/uL 0.0-0.2 N BASOPHIL # (test code = BA#) 0.03 x10 3/uL 0.0-0.2 N NUCLEATED RBC # (test code = NRBC#) 0.00 x10 3/uL 0.0-0.1 N RAPID PLASMA [id number] 09:52:00* Test Item Value Reference Range Interpretation Comme nts RAPID PLASMA REAGIN (test co de = RPR) NONREACTIVE NONREACTIVE AG HEPATITIS B [id number] 09:52:00* Test Item Value Reference Range Interpretation Comme nts AG HEPATITIS B SURFACE (test code = HBSAG) NON REACTIVE INDEX NonReactive AB HIV 1 09:52:00* Test Item Value Reference Range Interpretation Comme nts AB HIV 1 2 (test code = TOV72KN) Nonreactive Nonreactive CBC W/AUTO [id number] 04:36:00* Test Item Value Reference Range Interpretation [...] c ode = MDIFF) NO CULTURE, URINE, [id number] 00:00:00* Test Item Value Reference Range Interpretation Comme nts CULTURE, URINE, ROUTINE (raghavendra t code = 630-4) SEE NOTE Peetr F AustinCULTURE, URINE, [id number] 00:00:00* Test Item Value Reference Range Interpretation Comme nts CULTURE, URINE, ROUTINE (raghavendra t code = 630-4) SEE NOTE Peter F AustinCULTURE, URINE, [id number] 00:00:00* Test Item Value Reference Range Interpretation Comme nts CULTURE, URINE, ROUTINE (raghavendra t code = 630-4) SEE NOTE Peter F AustinCULTURE, URINE, [id number] 00:00:00* Test Item Value Reference Range Interpretation Comme nts CULTURE, URINE, ROUTINE (raghavendra t code = 630-4) SEE NOTE Peter F AustinCULTURE, URINE, [id number] 00:00:00* Test Item Value Reference Range Interpretation Comme nts CULTURE, URINE, ROUTINE (raghavendra t code = 630-4) SEE NOTE Peter F AustinCULTURE, URINE, [id number] 00:00:00* Test Item Value Reference Range Interpretation Comme nts CULTURE, URINE, ROUTINE (raghavendra t code = 630-4) SEE NOTE Peter F AustinCULTURE, URINE, [id number] 00:00:00* Test Item Value Reference Range Interpretation Comme nts CULTURE, URINE, ROUTINE (raghavendra t code = 630-4) SEE NOTE Peter F AustinCULTURE, URINE, [id number] 00:00:00* Test Item Value Reference Range Interpretation Comme nts CULTURE, URINE, ROUTINE (raghavendra t code = 630-4) SEE NOTE Peter F AustinCULTURE, URINE, [id number] 00:00:00* Test Item Value Reference Range Interpretation Comme nts CULTURE, URINE, ROUTINE (raghavendra t code = 630-4) SEE NOTE Peter Romero AustinCULTURE, URINE, [id number] 00:00:00* Test Item Value Reference Range Interpretation Comme nts CULTURE, URINE, ROUTINE (raghavendra t code = 630-4) SEE NOTE Peter Romero AustinCULTURE, URINE, [id number] 00:00:00* Test Item Value Reference Range Interpretation Comme nts CULTURE, URINE, ROUTINE (raghavendra t code = 630-4) SEE NOTE Peter Romero AustinCULTURE, URINE, [id number] 00:00:00* Test Item Value Reference Range Interpretation Comme nts CULTURE, URINE, ROUTINE (raghavendra t code = 630-4) SEE NOTE Peter Romero AustinCULTURE, URINE, [id number] 00:00:00* Test Item Value Reference Range Interpretation Comme nts CULTURE, URINE, ROUTINE (raghavendra t code = 630-4) SEE NOTE Peter Romero AustinTRICHOMONAS, URINE, [id number] 00:00:00* Test Item Value Reference Range Interpretation Comme nts TRICHOMONAS, NAAT, URINE (te st code = 48633) NEGATIVE Peter Romero AustinCT/NG, NAAT, [id number] 00:00:00* Test Item Value Reference Range Interpretation Comme nts CHLAMYDIA, NAAT, URINE (test code = 43856) NEGATIVE GONORRHEA, NAAT, URINE (test code = 60597) NEGATIVE Peter Romero AustinTRICHOMONAS, URINE, [id number] 00:00:00* Test Item Value Reference Range Interpretation Comme nts TRICHOMONAS, NAAT, URINE (te st code = 14856) NEGATIVE Peter Romero AustinCT/NG, NAAT, [id number] 00:00:00* Test Item Value Reference Range Interpretation Comme nts CHLAMYDIA, NAAT, URINE (test code = 93403) NEGATIVE GONORRHEA, NAAT, URINE (test code = 71947) NEGATIVE Peter Romero AustinTRICHOMONAS, URINE, [id number] 00:00:00* Test Item Value Reference Range Interpretation Comme nts TRICHOMONAS, NAAT, URINE (te st code = 05328) NEGATIVE Peter F AustinCT/NG, NAAT, [id number] 00:00:00* Test Item Value Reference Range Interpretation Comme nts CHLAMYDIA, NAAT, URINE (test code = 41554) NEGATIVE GONORRHEA, NAAT, URINE (test code = 38541) NEGATIVE Peter F AustinTRICHOMONAS, URINE, [id number] 00:00:00* Test Item Value Reference Range Interpretation Comme nts TRICHOMONAS, NAAT, URINE (te st code = 36722) NEGATIVE Peter F AustinCT/NG, NAAT, [id number] 00:00:00* Test Item Value Reference Range Interpretation Comme nts CHLAMYDIA, NAAT, URINE (test code = 91450) NEGATIVE GONORRHEA, NAAT, URINE (test code = 95559) NEGATIVE Peter F AustinTRICHOMONAS, URINE, [id number] 00:00:00* Test Item Value Reference Range Interpretation Comme nts TRICHOMONAS, NAAT, URINE (te st code = 31017) NEGATIVE Peter F AustinCT/NG, NAAT, [id number] 00:00:00* Test Item Value Reference Range Interpretation Comme nts CHLAMYDIA, NAAT, URINE (test code = 58436) NEGATIVE GONORRHEA, NAAT, URINE (test code = 03976) NEGATIVE Peter F AustinTRICHOMONAS, URINE, [id number] 00:00:00* Test Item Value Reference Range Interpretation Comme nts TRICHOMONAS, NAAT, URINE (te st code = 15913) NEGATIVE Peter F AustinCT/NG, NAAT, [id number] 00:00:00* Test Item Value Reference Range Interpretation Comme nts CHLAMYDIA, NAAT, URINE (test code = 50086) NEGATIVE GONORRHEA, NAAT, URINE (test code = 51103) NEGATIVE Peter F AustinTRICHOMONAS, URINE, [id number] 00:00:00* Test Item Value Reference Range Interpretation Comme nts TRICHOMONAS, NAAT, URINE (te st code = 73246) NEGATIVE Peter F AustinCT/NG, NAAT, [id number] 00:00:00* Test Item Value Reference Range Interpretation Comme nts CHLAMYDIA, NAAT, URINE (test code = 21285) NEGATIVE GONORRHEA, NAAT, URINE (test code = 08433) NEGATIVE Peter F AustinTRICHOMONAS, URINE, [id number] 00:00:00* Test Item Value Reference Range Interpretation Comme nts TRICHOMONAS, NAAT, URINE (te st code = 85567) NEGATIVE Peter F AustinCT/NG, NAAT, [id number] 00:00:00* Test Item Value Reference Range Interpretation Comme nts CHLAMYDIA, NAAT, URINE (test code = 68648) NEGATIVE GONORRHEA, NAAT, URINE (test code = 73208) NEGATIVE Peter F AustinTRICHOMONAS, URINE, [id number] 00:00:00* Test Item Value Reference Range Interpretation Comme nts TRICHOMONAS, NAAT, URINE (te st code = 17288) NEGATIVE Peter F AustinCT/NG, NAAT, [id number] 00:00:00* Test Item Value Reference Range Interpretation Comme nts CHLAMYDIA, NAAT, URINE (test code = 79753) NEGATIVE GONORRHEA, NAAT, URINE (test code = 50498) NEGATIVE Peter F AustinTRICHOMONAS, URINE, [id number] 00:00:00* Test Item Value Reference Range Interpretation Comme nts TRICHOMONAS, NAAT, URINE (te st code = 73708) NEGATIVE Peter F AustinCT/NG, NAAT, [id number] 00:00:00* Test Item Value Reference Range Interpretation Comme nts CHLAMYDIA, NAAT, URINE (test code = 98011) NEGATIVE GONORRHEA, NAAT, URINE (test code = 32718) NEGATIVE Peter F AustinTRICHOMONAS, URINE, [id number] 00:00:00* Test Item Value Reference Range Interpretation Comme nts TRICHOMONAS, NAAT, URINE (te st code = 90304) NEGATIVE Peter F AustinCT/NG, NAAT, [id number] 00:00:00* Test Item Value Reference Range Interpretation Comme nts CHLAMYDIA, NAAT, URINE (test code = 90559) NEGATIVE GONORRHEA, NAAT, URINE (test code = 00378) NEGATIVE Peter F AustinTRICHOMONAS, URINE, [id number] 00:00:00* Test Item Value Reference Range Interpretation Comme nts TRICHOMONAS, NAAT, URINE (te st code = 66064) NEGATIVE Peter Romero AustinCT/NG, NAAT, [id number] 00:00:00* Test Item Value Reference Range Interpretation Comme nts CHLAMYDIA, NAAT, URINE (test code = 58640) NEGATIVE GONORRHEA, NAAT, URINE (test code = 05077) NEGATIVE Peter LoftonTRICHOMONAS, URINE, [id number] 00:00:00* Test Item Value Reference Range Interpretation Comme nts TRICHOMONAS, NAAT, URINE (te st code = 48111) NEGATIVE Peter Rmoero AustinCT/NG, NAAT, [id number] 00:00:00* Test Item Value Reference Range Interpretation Comme nts CHLAMYDIA, NAAT, URINE (test code = 31620) NEGATIVE GONORRHEA, NAAT, URINE (test code = 24607) NEGATIVE Peter LoftonCULTURE, [id number] 10:05:29SPECIMEN NUMBER: [id number] CULTURE, URINE SPECIMEN NUMBER: [id number] SOURCE: URINE REPORT STATUS: FINAL FINAL REPORT: 03/31/2024 <10,000 CFU/ML UROGENITAL JUNAID PRESENT NO COMMON PATHOGENS UNLESSOTHERWISE INDICATED, ALL TESTING PERFORMED AT [facility] [address] [place] [address] FIRMWARE MANAGER: GOPAL BACON M.D. CLIA NUMBER [id number] [facility]. [id number], [id number] 00:00:00* Test Item Value Reference Range Interpretation Comme nts CULTURE, URINE (test code = 05573) SPECIMEN NUMBER: [id number] Peter LoftonCULTURE, [id number] 00:00:00* Test Item Value Reference Range Interpretation Comme nts CULTURE, URINE (test code = 77023) SPECIMEN NUMBER: [id number] Peter LoftonCULTURE, [id number] 00:00:00* Test Item Value Reference Range Interpretation Comme nts CULTURE, URINE (test code = 83867) SPECIMEN NUMBER: [id number] Peter LoftonCULTURE, [id number] 00:00:00* Test Item Value Reference Range Interpretation Comme nts CULTURE, URINE (test code = 18988) SPECIMEN NUMBER: [id number] Peter Ugarte [id number] 00:00:00* Test Item Value Reference Range Interpretation Comme nts CULTURE, URINE (test code = 16016) SPECIMEN NUMBER: [id number] Peter Ugarte [id number] 00:00:00* Test Item Value Reference Range Interpretation Comme nts CULTURE, URINE (test code = 38175) SPECIMEN NUMBER: [id number] Peter Ugarte [id number] 00:00:00* Test Item Value Reference Range Interpretation Comme nts CULTURE, URINE (test code = 97406) SPECIMEN NUMBER: [id number] Peter Ugarte [id number] 00:00:00* Test Item Value Reference Range Interpretation Comme nts CULTURE, URINE (test code = 25565) SPECIMEN NUMBER: [id number] Peter Ugarte [id number] 00:00:00* Test Item Value Reference Range Interpretation Comme nts CULTURE, URINE (test code = 97620) SPECIMEN NUMBER: [id number] Peter Ugarte, [id number] 00:00:00* Test Item Value Reference Range Interpretation Comme nts CULTURE, URINE (test code = 14992) SPECIMEN NUMBER: [id number] Peter Ugarte [id number] 00:00:00* Test Item Value Reference Range Interpretation Comme nts CULTURE, URINE (test code = 42929) SPECIMEN NUMBER: [id number] Peter Ugarte [id number] 00:00:00* Test Item Value Reference Range Interpretation Comme nts CULTURE, URINE (test code = 49633) SPECIMEN NUMBER: [id number] Peter Ugarte [id number] 00:00:00* Test Item Value Reference Range Interpretation Comme nts CULTURE, URINE (test code = 90963) SPECIMEN NUMBER: [id number] Peter HurdLTBRYAN, URINE [ADDED]2024-03-27 00:00:00* Test Item Value Reference Range Interpretation Comme nts CULTURE, URINE (test code = 01822) SPECIMEN NUMBER: [id number] Peter HurdLTURE, URINE [ADDED]2024-03-27 00:00:00* Test Item Value Reference Range Interpretation Comme nts CULTURE, URINE (test code = 46158) SPECIMEN NUMBER: [id number] Peter LoftonCULTURE, URINE [ADDED]2024-03-27 00:00:00* Test Item Value Reference Range Interpretation Comme nts CULTURE, URINE (test code = 30080) SPECIMEN NUMBER: [id number] Peter LoftonCULTURE, URINE [ADDED]2024-03-27 00:00:00* Test Item Value Reference Range Interpretation Comme nts CULTURE, URINE (test code = 74608) SPECIMEN NUMBER: [id number] Peter Romero AustinCULTURE, URINE [ADDED]2024-03-27 00:00:00* Test Item Value Reference Range Interpretation Comme nts CULTURE, URINE (test code = 64500) SPECIMEN NUMBER: [id number] Peter Romero AustinCULTURE, URINE [ADDED]2024-03-27 00:00:00* Test Item Value Reference Range Interpretation Comme nts CULTURE, URINE (test code = 09719) SPECIMEN NUMBER: [id number] Peter Romero AustinCULTURE, URINE [ADDED]2024-03-27 00:00:00* Test Item Value Reference Range Interpretation Comme nts CULTURE, URINE (test code = 88289) SPECIMEN NUMBER: [id number] Peter Romero AustinCULTURE, URINE [ADDED]2024-03-27 00:00:00* Test Item Value Reference Range Interpretation Comme nts CULTURE, URINE (test code = 09317) SPECIMEN NUMBER: [id number] Peter Romero AustinCULTURE, URINE [ADDED]2024-03-27 00:00:00* Test Item Value Reference Range Interpretation Comme nts CULTURE, URINE (test code = 28553) SPECIMEN NUMBER: [id number] Peter Romero AustinCULTURE, URINE [ADDED]2024-03-27 00:00:00* Test Item Value Reference Range Interpretation Comme nts CULTURE, URINE (test code = 41326) SPECIMEN NUMBER: [id number] Peter Romero AustinCULTURE, URINE [ADDED]2024-03-27 00:00:00* Test Item Value Reference Range Interpretation Comme nts CULTURE, URINE (test code = 05649) SPECIMEN NUMBER: [id number] Peter Romero AustinCULTURE, URINE [ADDED]2024-03-27 00:00:00* Test Item Value Reference Range Interpretation Comme nts CULTURE, URINE (test code = 93165) SPECIMEN NUMBER: [id number] Peter LoftonCULTURE, URINE [ADDED]2024-03-27 00:00:00* Test Item Value Reference Range Interpretation Comme nts CULTURE, URINE (test code = 14450) SPECIMEN NUMBER: [id number] Peter Romero AustinVAGINAL PATHOGENS DNA [id number] 00:00:00* Test Item Value Reference Range Interpretation Comme nts GEORGETTE SPECIES (test code = ) POSITIVE G. VAGINALIS (test code = 20877) NEGATIVE T. VAGINALIS (test code = 62648) NEGATIVE Peter Romero AustinVAGINAL PATHOGENS DNA [id number] 00:00:00* Test Item Value Reference Range Interpretation Comme nts GEORGETTE SPECIES (test code = 17345) POSITIVE G. VAGINALIS (test code = 28182) NEGATIVE T. VAGINALIS (test code = 24409) NEGATIVE Peter Romero AustinVAGINAL PATHOGENS DNA [id number] 00:00:00* Test Item Value Reference Range Interpretation Comme nts GEORGETTE SPECIES (test code = 41255) POSITIVE G. VAGINALIS (test code = 28211) NEGATIVE T. VAGINALIS (test code = 44653) NEGATIVE Peter Romero AustinVAGINAL PATHOGENS DNA [id number] 00:00:00* Test Item Value Reference Range Interpretation Comme nts GEORGETTE SPECIES (test code = 27811) POSITIVE G. VAGINALIS (test code = 02874) NEGATIVE T. VAGINALIS (test code = 49077) NEGATIVE Peter Romero AustinVAGINAL PATHOGENS DNA [id number] 00:00:00* Test Item Value Reference Range Interpretation Comme nts GEORGETTE SPECIES (test code = 55254) POSITIVE G. VAGINALIS (test code = 22698) NEGATIVE T. VAGINALIS (test code = 26209) NEGATIVE Peter Romero [facility] DNA [id number] 00:00:00* Test Item Value Reference Range Interpretation Comme nts GE[employer]GET[employer]ES (test code = 18254) POSITIVE G. VAGINALIS (test code = 80626) NEGATIVE T. VAGINALIS (test code = 06545) NEGATIVE Peter Romero [facility] DNA [id number] 00:00:00* Test Item Value Reference Range Interpretation Comme nts GE[employer]GET[employer] (test code = ) POSITIVE G. VAGINALIS (test code = 64086) NEGATIVE T. VAGINALIS (test code = 45809) NEGATIVE Peter Romero [facility] DNA [id number] 00:00:00* Test Item Value Reference Range Interpretation Comme nts GE[employer] (test code = 32756) POSITIVE G. VAGINALIS (test code = 63444) NEGATIVE T. VAGINALIS (test code = 42652) NEGATIVE Peter Romero [facility] DNA [id number] 00:00:00* Test Item Value Reference Range Interpretation Comme nts GE[employer] (test code = 11431) POSITIVE G. VAGINALIS (test code = 66430) NEGATIVE T. VAGINALIS (test code = 91159) NEGATIVE Peter Romero [facility] DNA [id number] 00:00:00* Test Item Value Reference Range Interpretation Comme nts [employer] (test code = 33108) POSITIVE G. VAGINALIS (test code = 19183) NEGATIVE T. VAGINALIS (test code = 22930) NEGATIVE Peter Romero [facility] DNA [id number] 00:00:00* Test Item Value Reference Range Interpretation Comme nts GE[employer] (test code = 49216) POSITIVE G. VAGINALIS (test code = 15479) NEGATIVE T. VAGINALIS (test code = 19487) NEGATIVE Peter Romero [facility] DNA [id number] 00:00:00* Test Item Value Reference Range Interpretation Comme nts [employer] (test code = 04320) POSITIVE G. VAGINALIS (test code = 96068) NEGATIVE T. VAGINALIS (test code = 45546) NEGATIVE Peter Romero [facility] DNA [id number] 00:00:00* Test Item Value Reference Range Interpretation Comme nts [employer] (test code = 37044) POSITIVE G. VAGINALIS (test code = 38288) NEGATIVE T. VAGINALIS (test code = 68072) NEGATIVE Peter LoftonCULTURE, [id number] 00:00:00* Test Item Value Reference Range Interpretation Comme nts CULTURE, URINE (test code = 52993) SPECIMEN NUMBER: [id number] Peter HurdLTBRYAN, [id number] 00:00:00* Test Item Value Reference Range Interpretation Comme nts CULTURE, URINE (test code = 79995) SPECIMEN NUMBER: [id number] Peter Ugarte, [id number] 00:00:00* Test Item Value Reference Range Interpretation Comme nts CULTURE, URINE (test code = 37521) SPECIMEN NUMBER: [id number] Peter Ugarte [id number] 00:00:00* Test Item Value Reference Range Interpretation Comme nts CULTURE, URINE (test code = 78725) SPECIMEN NUMBER: [id number] Peter Ugarte [id number] 00:00:00* Test Item Value Reference Range Interpretation Comme nts CULTURE, URINE (test code = 56173) SPECIMEN NUMBER: [id number] Peter Ugarte, [id number] 00:00:00* Test Item Value Reference Range Interpretation Comme nts CULTURE, URINE (test code = 12817) SPECIMEN NUMBER: [id number] Peter Ugarte, [id number] 00:00:00* Test Item Value Reference Range Interpretation Comme nts CULTURE, URINE (test code = 10060) SPECIMEN NUMBER: [id number] Peter Ugarte, [id number] 00:00:00* Test Item Value Reference Range Interpretation Comme nts CULTURE, URINE (test code = 15875) SPECIMEN NUMBER: [id number] Peter Ugarte, [id number] 00:00:00* Test Item Value Reference Range Interpretation Comme nts CULTURE, URINE (test code = 74721) SPECIMEN NUMBER: [id number] Peter Ugarte, [id number] 00:00:00* Test Item Value Reference Range Interpretation Comme nts CULTURE, URINE (test code = 48911) SPECIMEN NUMBER: [id number] Peter Ugarte, [id number] 00:00:00* Test Item Value Reference Range Interpretation Comme nts CULTURE, URINE (test code = 60311) SPECIMEN NUMBER: [id number] Peter Ugarte, [id number] 00:00:00* Test Item Value Reference Range Interpretation Comme nts CULTURE, URINE (test code = 62702) SPECIMEN NUMBER: [id number] Peter LoftonCULTURE, [id number] 00:00:00* Test Item Value Reference Range Interpretation Comme nts CULTURE, URINE (test code = 44165) SPECIMEN NUMBER: [id number] Peter LoftonCULTURE, [id number] 00:00:00* Test Item Value Reference Range Interpretation Comme nts CULTURE, URINE (test code = 97579) SPECIMEN NUMBER: [id number] Peter Romero [facility] DNA [id number] 00:00:00* Test Item Value Reference Range Interpretation Comme nts [employer] (test code = ) POSITIVE G. VAGINALIS (test code = 30083) POSITIVE T. VAGINALIS (test code = 19219) NEGATIVE Peter Romero [facility] DNA [id number] 00:00:00* Test Item Value Reference Range Interpretation Comme nts [employer] (test code = 60280) POSITIVE G. VAGINALIS (test code = 98552) POSITIVE T. VAGINALIS (test code = 16438) NEGATIVE Peter Romero [facility] DNA [id number] 00:00:00* Test Item Value Reference Range Interpretation Comme nts [employer] (test code = 45725) POSITIVE G. VAGINALIS (test code = 31058) POSITIVE T. VAGINALIS (test code = 48995) NEGATIVE Peter Romero [facility] DNA [id number] 00:00:00* Test Item Value Reference Range Interpretation Comme nts [employer] (test code = 82908) POSITIVE G. VAGINALIS (test code = 44015) POSITIVE T. VAGINALIS (test code = 98118) NEGATIVE Peter Romero [facility] DNA [id number] 00:00:00* Test Item Value Reference Range Interpretation Comme nts [employer] (test code = 53569) POSITIVE G. VAGINALIS (test code = 10820) POSITIVE T. VAGINALIS (test code = 90449) NEGATIVE Peter Romero [facility] DNA [id number] 00:00:00* Test Item Value Reference Range Interpretation Comme nts [employer] (test code = 10421) POSITIVE G. VAGINALIS (test code = 09366) POSITIVE T. VAGINALIS (test code = 19723) NEGATIVE Peter Romero [facility] DNA [id number] 00:00:00* Test Item Value Reference Range Interpretation Comme nts [employer] (test code = 30116) POSITIVE G. VAGINALIS (test code = 02240) POSITIVE T. VAGINALIS (test code = 84398) NEGATIVE Peter Romero [facility]ENS DNA [id number] 00:00:00* Test Item Value Reference Range Interpretation Comme nts [employer] (test code = 82337) POSITIVE G. VAGINALIS (test code = 96527) POSITIVE T. VAGINALIS (test code = 35793) NEGATIVE Peter Romero [facility]ENS DNA [id number] 00:00:00* Test Item Value Reference Range Interpretation Comme nts [employer] (test code = 36710) POSITIVE G. VAGINALIS (test code = 86814) POSITIVE T. VAGINALIS (test code = 90664) NEGATIVE Peter Romero [facility] DNA [id number] 00:00:00* Test Item Value Reference Range Interpretation Comme nts [employer] (test code = 84301) POSITIVE G. VAGINALIS (test code = 96632) POSITIVE T. VAGINALIS (test code = 72523) NEGATIVE Peter Romero [facility]ENS DNA [id number] 00:00:00* Test Item Value Reference Range Interpretation Comme nts [employer] (test code = 34654) POSITIVE G. VAGINALIS (test code = 96146) POSITIVE T. VAGINALIS (test code = 33760) NEGATIVE Peter Romero [facility] PATH[facility]ENS DNA [id number] 00:00:00* Test Item Value Reference Range Interpretation Comme nts [employer] (test code = 71095) POSITIVE G. VAGINALIS (test code = 54756) POSITIVE T. VAGINALIS (test code = 35639) NEGATIVE Peter Romero [facility] PATH[facility]ENS DNA [id number] 00:00:00* Test Item Value Reference Range Interpretation Comme nts [employer] (test code = 26069) POSITIVE G. VAGINALIS (test code = 71657) POSITIVE T. VAGINALIS (test code = 31231) NEGATIVE Peter Romero Austin[facility] PATH[facility]ENS DNA [id number] 00:00:00* Test Item Value Reference Range Interpretation Comme nts [employer] (test code = 65993) POSITIVE G. VAGINALIS (test code = 13302) POSITIVE T. VAGINALIS (test code = 04056) NEGATIVE Peter Ugarte, [id number] 00:00:00* Test Item Value Reference Range Interpretation Comme nts CULTURE, URINE (test code = 44572) SPECIMEN NUMBER: [id number] MACARIO [id number] 00:00:00* Test Item Value Reference Range Interpretation Comme nts CULTURE, URINE (test code = 83043) SPECIMEN NUMBER: [id number] Peter Ugarte [id number] 00:00:00* Test Item Value Reference Range Interpretation Comme nts CULTURE, URINE (test code = 28250) SPECIMEN NUMBER: [id number] Peter Ugarte [id number] 00:00:00* Test Item Value Reference Range Interpretation Comme nts CULTURE, URINE (test code = 17478) SPECIMEN NUMBER: [id number] Peter Ugarte [id number] 00:00:00* Test Item Value Reference Range Interpretation Comme nts CULTURE, URINE (test code = 59836) SPECIMEN NUMBER: [id number] Peter Ugarte [id number] 00:00:00* Test Item Value Reference Range Interpretation Comme nts CULTURE, URINE (test code = 10270) SPECIMEN NUMBER: [id number] Peter Ugarte [id number] 00:00:00* Test Item Value Reference Range Interpretation Comme nts CULTURE, URINE (test code = 00019) SPECIMEN NUMBER: [id number] Peter Ugarte, [id number] 00:00:00* Test Item Value Reference Range Interpretation Comme nts CULTURE, URINE (test code = 89472) SPECIMEN NUMBER: [id number] Peter Ugarte [id number] 00:00:00* Test Item Value Reference Range Interpretation Comme nts CULTURE, URINE (test code = 55870) SPECIMEN NUMBER: [id number] Peter Ugarte [id number] 00:00:00* Test Item Value Reference Range Interpretation Comme nts CULTURE, URINE (test code = 00378) SPECIMEN NUMBER: [id number] Peter Ugarte, [id number] 00:00:00* Test Item Value Reference Range Interpretation Comme nts CULTURE, URINE (test code = 88166) SPECIMEN NUMBER: [id number] Peter Ugarte [id number] 00:00:00* Test Item Value Reference Range Interpretation Comme nts CULTURE, URINE (test code = 72942) SPECIMEN NUMBER: [id number] Peter Ugarte [id number] 00:00:00* Test Item Value Reference Range Interpretation Comme nts CULTURE, URINE (test code = 59358) SPECIMEN NUMBER: [id number] Peter Ugarte [id number] 00:00:00* Test Item Value Reference Range Interpretation Comme nts CULTURE, URINE (test code = 25281) SPECIMEN NUMBER: [id number] Peter Ugarte [id number] 00:00:00* Test Item Value Reference Range Interpretation Comme nts CULTURE, URINE (test code = 85949) SPECIMEN NUMBER: [id number] Peter Ugarte, [id number] 00:00:00* Test Item Value Reference Range Interpretation Comme nts CULTURE, URINE (test code = 01744) SPECIMEN NUMBER: [id number] Peter Ugarte, [id number] 00:00:00* Test Item Value Reference Range Interpretation Comme nts CULTURE, URINE (test code = 09908) SPECIMEN NUMBER: [id number] Peter Ugarte, [id number] 00:00:00* Test Item Value Reference Range Interpretation Comme nts CULTURE, URINE (test code = 58279) SPECIMEN NUMBER: [id number] Peter Ugarte, [id number] 00:00:00* Test Item Value Reference Range Interpretation Comme nts CULTURE, URINE (test code = 45386) SPECIMEN NUMBER: [id number] Peter Ugarte, [id number] 00:00:00* Test Item Value Reference Range Interpretation Comme nts CULTURE, URINE (test code = 51397) SPECIMEN NUMBER: [id number] Peter Ugarte, [id number] 00:00:00* Test Item Value Reference Range Interpretation Comme nts CULTURE, URINE (test code = 93208) SPECIMEN NUMBER: [id number] Peter Ugarte [id number] 00:00:00* Test Item Value Reference Range Interpretation Comme nts CULTURE, URINE (test code = 25000) SPECIMEN NUMBER: [id number] Peter Ugarte [id number] 00:00:00* Test Item Value Reference Range Interpretation Comme nts CULTURE, URINE (test code = 96765) SPECIMEN NUMBER: [id number] Peter Ugarte [id number] 00:00:00* Test Item Value Reference Range Interpretation Comme nts CULTURE, URINE (test code = 76004) SPECIMEN NUMBER: [id number] Peter Ugarte [id number] 00:00:00* Test Item Value Reference Range Interpretation Comme nts CULTURE, URINE (test code = 26554) SPECIMEN NUMBER: [id number] Peter Ugarte [id number] 00:00:00* Test Item Value Reference Range Interpretation Comme nts CULTURE, URINE (test code = 86092) SPECIMEN NUMBER: [id number] Peter Ugarte [id number] 00:00:00* Test Item Value Reference Range Interpretation Comme nts CULTURE, URINE (test code = 47283) SPECIMEN NUMBER: [id number] Peter Ugarte [id number] 00:00:00* Test Item Value Reference Range Interpretation Comme nts CULTURE, URINE (test code = 17312) SPECIMEN NUMBER: [id number] Peter Ugarte, [id number] 00:00:00* Test Item Value Reference Range Interpretation Comme nts CULTURE, URINE (test code = 69485) SPECIMEN NUMBER: [id number] Peter HurdLTBRYAN, [id number] 00:00:00* Test Item Value Reference Range Interpretation Comme nts CULTURE, URINE (test code = 92477) SPECIMEN NUMBER: [id number] Peter Ugarte, [id number] 00:00:00* Test Item Value Reference Range Interpretation Comme nts CULTURE, URINE (test code = 44140) SPECIMEN NUMBER: [id number] Peter LoftonCULTURE, [id number] 00:00:00* Test Item Value Reference Range Interpretation Comme nts CULTURE, URINE (test code = 16161) SPECIMEN NUMBER: [id number] Peter LoftonCULTBRYAN, [id number] 00:00:00* Test Item Value Reference Range Interpretation Comme nts CULTURE, URINE (test code = 92620) SPECIMEN NUMBER: [id number] Peter Romero [facility] DNA [id number] 00:00:00* Test Item Value Reference Range Interpretation Comme nts GE[employer]GET[employer] SPE[employer]ES (test code = ) POSITIVE G. VAGINALIS (test code = 46387) NEGATIVE T. VAGINALIS (test code = 92301) NEGATIVE Peter Romero [facility] DNA [id number] 00:00:00* Test Item Value Reference Range Interpretation Comme nts GE[employer] (test code = 94312) POSITIVE G. VAGINALIS (test code = 77897) NEGATIVE T. VAGINALIS (test code = 77629) NEGATIVE Peter Romero [facility] DNA [id number] 00:00:00* Test Item Value Reference Range Interpretation Comme nts GE[employer]ES (test code = 22540) POSITIVE G. VAGINALIS (test code = 49766) NEGATIVE T. VAGINALIS (test code = 90006) NEGATIVE Peter Romero [facility]ENS DNA [id number] 00:00:00* Test Item Value Reference Range Interpretation Comme nts GE[employer] (test code = 82545) POSITIVE G. VAGINALIS (test code = 13092) NEGATIVE T. VAGINALIS (test code = 33765) NEGATIVE Peter Romero [facility]ENS DNA [id number] 00:00:00* Test Item Value Reference Range Interpretation Comme nts GE[employer] (test code = 30189) POSITIVE G. VAGINALIS (test code = 07766) NEGATIVE T. VAGINALIS (test code = 50347) NEGATIVE Peter Romero [facility]ENS DNA [id number] 00:00:00* Test Item Value Reference Range Interpretation Comme nts GE[employer]ES (test code = 94915) POSITIVE G. VAGINALIS (test code = 65536) NEGATIVE T. VAGINALIS (test code = 45762) NEGATIVE Peter Romero [facility] DNA [id number] 00:00:00* Test Item Value Reference Range Interpretation Comme nts GE[employer]ES (test code = ) POSITIVE G. VAGINALIS (test code = 04039) NEGATIVE T. VAGINALIS (test code = 90831) NEGATIVE Peter Romero [facility] DNA [id number] 00:00:00* Test Item Value Reference Range Interpretation Comme nts GE[employer]ES (test code = 20686) POSITIVE G. VAGINALIS (test code = 87440) NEGATIVE T. VAGINALIS (test code = 21562) NEGATIVE Peter Romero [facility] DNA [id number] 00:00:00* Test Item Value Reference Range Interpretation Comme nts GE[employer] (test code = 09152) POSITIVE G. VAGINALIS (test code = 81596) NEGATIVE T. VAGINALIS (test code = 02398) NEGATIVE Peter Romero [facility]ENS DNA [id number] 00:00:00* Test Item Value Reference Range Interpretation Comme nts [employer] (test code = 50670) POSITIVE G. VAGINALIS (test code = 02192) NEGATIVE T. VAGINALIS (test code = 79894) NEGATIVE Peter Romero [facility]ENS DNA [id number] 00:00:00* Test Item Value Reference Range Interpretation Comme nts GE[employer] (test code = ) POSITIVE G. VAGINALIS (test code = 26759) NEGATIVE T. VAGINALIS (test code = 35819) NEGATIVE Peter Romero [facility]ENS DNA [id number] 00:00:00* Test Item Value Reference Range Interpretation Comme nts GE[employer]ES (test code = 76418) POSITIVE G. VAGINALIS (test code = 84117) NEGATIVE T. VAGINALIS (test code = 72798) NEGATIVE Peter Romero [facility]ENS DNA [id number] 00:00:00* Test Item Value Reference Range Interpretation Comme nts GE[employer] (test code = 08009) POSITIVE G. VAGINALIS (test code = 43264) NEGATIVE T. VAGINALIS (test code = 74875) NEGATIVE Peter Romero [facility] PATH[facility]ENS DNA [id number] 00:00:00* Test Item Value Reference Range Interpretation Comme nts GE[employer] (test code = 81556) POSITIVE G. VAGINALIS (test code = 84885) NEGATIVE T. VAGINALIS (test code = 55214) NEGATIVE Peter Romero [facility]ENS DNA [id number] 00:00:00* Test Item Value Reference Range Interpretation Comme nts GE[employer] SPE[employer]ES (test code = 03260) POSITIVE G. VAGINALIS (test code = 61634) NEGATIVE T. VAGINALIS (test code = 48983) NEGATIVE Peter Romero [facility]ENS DNA [id number] 00:00:00* Test Item Value Reference Range Interpretation Comme nts GE[employer] SPE[employer]ES (test code = 17150) POSITIVE G. VAGINALIS (test code = 24797) NEGATIVE T. VAGINALIS (test code = 76360) NEGATIVE Peter F AustinVAGINAL PATHOGENS DNA [id number] 00:00:00* Test Item Value Reference Range Interpretation Comme nts GE[employer] SPE[employer] (test code = 86391) POSITIVE G. VAGINALIS (test code = 46778) NEGATIVE T. VAGINALIS (test code = 36004) NEGATIVE Peter Romero AustinCT/NG, NAAT, [id number] 16:12:27* Test Item Value Reference Range Interpretation Comme nts CHLAMYDIA, NAAT, URINE (test code = 61922) NEGATIVE NEGATIVE Testing is perfo rmed with [employer] KELLY 6800/8800 systems usingreal-time polymerase chain reaction (PCR) method. A negative result does not exclude low level infection, specimensampling error, or collection error. GONORRHEA, NAAT, URINE (test code = 77697) NEGATIVE NEGATIVE Testing is perfo rmed with Orlin KELLY 6800/8800 systems usingreal-time polymerase chain reaction (PCR) method. A negative result does not exclude low level infection, specimensampling error, or collection error. CT/NG, NAAT, [id number] 00:00:00* Test Item Value Reference Range Interpretation Comme nts CHLAMYDIA, NAAT, URINE (test code = 36261) NEGATIVE GONORRHEA, NAAT, URINE (test code = 17458) NEGATIVE Peter Romero AustinCT/NG, NAAT, [id number] 00:00:00* Test Item Value Reference Range Interpretation Comme nts CHLAMYDIA, NAAT, URINE (test code = 48009) NEGATIVE GONORRHEA, NAAT, URINE (test code = 84613) NEGATIVE Peter F AustinCT/NG, NAAT, [id number] 00:00:00* Test Item Value Reference Range Interpretation Comme nts CHLAMYDIA, NAAT, URINE (test code = 50803) NEGATIVE GONORRHEA, NAAT, URINE (test code = 29723) NEGATIVE Peter F AustinCT/NG, NAAT, [id number] 00:00:00* Test Item Value Reference Range Interpretation Comme nts CHLAMYDIA, NAAT, URINE (test code = 47481) NEGATIVE GONORRHEA, NAAT, URINE (test code = 66021) NEGATIVE Peter F AustinCT/NG, NAAT, [id number] 00:00:00* Test Item Value Reference Range Interpretation Comme nts CHLAMYDIA, NAAT, URINE (test code = 30151) NEGATIVE GONORRHEA, NAAT, URINE (test code = 04533) NEGATIVE Peter F AustinCT/NG, NAAT, [id number] 00:00:00* Test Item Value Reference Range Interpretation Comme nts CHLAMYDIA, NAAT, URINE (test code = 28894) NEGATIVE GONORRHEA, NAAT, URINE (test code = 85412) NEGATIVE Peter F AustinCT/NG, NAAT, [id number] 00:00:00* Test Item Value Reference Range Interpretation Comme nts CHLAMYDIA, NAAT, URINE (test code = 65864) NEGATIVE GONORRHEA, NAAT, URINE (test code = 18529) NEGATIVE Peter F AustinCT/NG, NAAT, [id number] 00:00:00* Test Item Value Reference Range Interpretation Comme nts CHLAMYDIA, NAAT, URINE (test code = 81640) NEGATIVE GONORRHEA, NAAT, URINE (test code = 63596) NEGATIVE Peter F AustinCT/NG, NAAT, [id number] 00:00:00* Test Item Value Reference Range Interpretation Comme nts CHLAMYDIA, NAAT, URINE (test code = 50663) NEGATIVE GONORRHEA, NAAT, URINE (test code = 94762) NEGATIVE Peter F AustinCT/NG, NAAT, [id number] 00:00:00* Test Item Value Reference Range Interpretation Comme nts CHLAMYDIA, NAAT, URINE (test code = 17778) NEGATIVE GONORRHEA, NAAT, URINE (test code = 51654) NEGATIVE Peter F AustinCT/NG, NAAT, [id number] 00:00:00* Test Item Value Reference Range Interpretation Comme nts CHLAMYDIA, NAAT, URINE (test code = 45318) NEGATIVE GONORRHEA, NAAT, URINE (test code = 82362) NEGATIVE Peter F AustinCT/NG, NAAT, [id number] 00:00:00* Test Item Value Reference Range Interpretation Comme nts CHLAMYDIA, NAAT, URINE (test code = 40953) NEGATIVE GONORRHEA, NAAT, URINE (test code = 49518) NEGATIVE Peter F AustinCT/NG, NAAT, [id number] 00:00:00* Test Item Value Reference Range Interpretation Comme nts CHLAMYDIA, NAAT, URINE (test code = 68133) NEGATIVE GONORRHEA, NAAT, URINE (test code = 57016) NEGATIVE Peter F AustinCT/NG, NAAT, [id number] 00:00:00* Test Item Value Reference Range Interpretation Comme nts CHLAMYDIA, NAAT, URINE (test code = 00255) NEGATIVE GONORRHEA, NAAT, URINE (test code = 67135) NEGATIVE Peter F AustinCT/NG, NAAT, [id number] 00:00:00* Test Item Value Reference Range Interpretation Comme nts CHLAMYDIA, NAAT, URINE (test code = 35762) NEGATIVE GONORRHEA, NAAT, URINE (test code = 79815) NEGATIVE Peter F AustinCT/NG, NAAT, [id number] 00:00:00* Test Item Value Reference Range Interpretation Comme nts CHLAMYDIA, NAAT, URINE (test code = 54886) NEGATIVE GONORRHEA, NAAT, URINE (test code = 75848) NEGATIVE Peter F AustinCT/NG, NAAT, [id number] 00:00:00* Test Item Value Reference Range Interpretation Comme nts CHLAMYDIA, NAAT, URINE (test code = 10046) NEGATIVE GONORRHEA, NAAT, URINE (test code = 94794) NEGATIVE Peter Romero AustinCULTURE, [id number] 09:18:49SPECIMEN NUMBER: [id number] CULTURE, URINE SPECIMEN NUMBER: [id number] SPECIMEN COMMENT: URINE SOURCE: URINE REPORT STATUS: FINAL FINAL REPORT: 02/11/2024 50-100,000 CFU/ML UROGENITAL JUNAID PRESENT NO COMMON PATHOGENSCULTURE, [id number] 00:00:00* Test Item Value Reference Range Interpretation Comme nts CULTURE, URINE (test code = 08646) SPECIMEN NUMBER: [id number] Peter Ugarte, [id number] 00:00:00* Test Item Value Reference Range Interpretation Comme nts CULTURE, URINE (test code = 15135) SPECIMEN NUMBER: [id number] Peter HurdLTURE, [id number] 00:00:00* Test Item Value Reference Range Interpretation Comme nts CULTURE, URINE (test code = 75811) SPECIMEN NUMBER: [id number] Peter HurdLTBRYAN, [id number] 00:00:00* Test Item Value Reference Range Interpretation Comme nts CULTURE, URINE (test code = 66239) SPECIMEN NUMBER: [id number] Peter uHrdLTURE, [id number] 00:00:00* Test Item Value Reference Range Interpretation Comme nts CULTURE, URINE (test code = 36142) SPECIMEN NUMBER: [id number] Peter HurdLTBRYAN, [id number] 00:00:00* Test Item Value Reference Range Interpretation Comme nts CULTURE, URINE (test code = 33026) SPECIMEN NUMBER: [id number] Peter HurdLTBRYAN, [id number] 00:00:00* Test Item Value Reference Range Interpretation Comme nts CULTURE, URINE (test code = 10066) SPECIMEN NUMBER: [id number] Peter HurdLTURE, [id number] 00:00:00* Test Item Value Reference Range Interpretation Comme nts CULTURE, URINE (test code = 59055) SPECIMEN NUMBER: [id number] Peter HurdLTURE, [id number] 00:00:00* Test Item Value Reference Range Interpretation Comme nts CULTURE, URINE (test code = 09952) SPECIMEN NUMBER: [id number] Peter HurdLTURE, [id number] 00:00:00* Test Item Value Reference Range Interpretation Comme nts CULTURE, URINE (test code = 94654) SPECIMEN NUMBER: [id number] Peter Ugarte, [id number] 00:00:00* Test Item Value Reference Range Interpretation Comme nts CULTURE, URINE (test code = 22374) SPECIMEN NUMBER: [id number] Peter Ugarte, [id number] 00:00:00* Test Item Value Reference Range Interpretation Comme nts CULTURE, URINE (test code = 22935) SPECIMEN NUMBER: [id number] Peter Ugarte, [id number] 00:00:00* Test Item Value Reference Range Interpretation Comme nts CULTURE, URINE (test code = 76589) SPECIMEN NUMBER: [id number] Peter Ugarte, [id number] 00:00:00* Test Item Value Reference Range Interpretation Comme nts CULTURE, URINE (test code = 26822) SPECIMEN NUMBER: [id number] Peter Ugarte, [id number] 00:00:00* Test Item Value Reference Range Interpretation Comme nts CULTURE, URINE (test code = 30127) SPECIMEN NUMBER: [id number] Peter Ugarte, [id number] 00:00:00* Test Item Value Reference Range Interpretation Comme nts CULTURE, URINE (test code = 98329) SPECIMEN NUMBER: [id number] Peter Ugarte, [id number] 00:00:00* Test Item Value Reference Range Interpretation Comme nts CULTURE, URINE (test code = 27988) SPECIMEN NUMBER: [id number] Peter LoftonDRUG ABUSE SCREEN 10 REFLEX [id number] 05:47:13* Test Item Value Reference Range Interpretation Comme nts AMPHETAMINES (test code = 3201) NEGATIVE NEGATIVE BARBITURATES (test code = 3202) NEGATIVE NEGATIVE BENZODIAZEPINES (test code = 3203) NEGATIVE NEGATIVE CANNABINOIDS (test code = 3204) NEGATIVE NEGATIVE COCAINE METABOLITE (test code = 3205) NEGATIVE NEGATIVE OPIATES (test code = 3209) NEGATIVE NEGATIVE OXYCODONE (test code = 35116) NEGATIVE NEGATIVE PHENCYCLIDINE (test code = 3210) NEGATIVE NEGATIVE METHADONE (test code = 3207) NEGATIVE NEGATIVE BUPRENORPHINE (test code = 62836) NEGATIVE NEGATIVE SOURCE (test code = 045999) URINE SEE BELOW FO R THRESHOLDS AND [...] or contact the laboratory within specimen stability toforward for confirmatory testing. This test is specified for medicalpurposes only. It is not valid for forensic use. UNLESS OTHERWISE INDICATED, ALL TESTING PERFORMED AT [facility] [address] [place] [id number] FIRMWARE MANAGER: GOPAL BACON M.D. CLIA NUMBER [id number] [facility] [place] [place]. [id number] CBC W/AUTO DIFF WITH [id number] 04:08:44* Test Item Value Reference Range Interpretation [...] = 1065) 0.0 /100 WBC'S See_Comment [Automated [employer] ge] The system which generated this result [...] 0.00-0.10 ABS NUCLEATED RBCS (test code = 28928) 0.00 K/UL 0.00-0.11 HIV 1/2 4TH GEN, RFLX [id number] 03:35:05* Test Item Value Reference Range Interpretation Comme nts HIV 1/2 4TH GEN, RFLX CONF ( test code = 3514) NON-REACTIVE NON-REACTIVE [id number] 03:00:07* Test Item Value Reference Range Interpretation Comme nts RPR RESULT (test code = 3501) NON-REACTIVE NON-REACTIVE RPR TITER (test code = 3500) NOT INDIC. TITER NOT INDIC. DRUG ABUSE SCREEN 10 REFLEX [id number] 00:00:00* Test Item Value Reference Range Interpretation Comme nts AMPHETAMINES (test code = 3201) NEGATIVE BARBITURATES (test code = 3202) NEGATIVE BENZODIAZEPINES (test code = 3203) NEGATIVE CANNABINOIDS (test code = 3204) NEGATIVE COCAINE METABOLITE (test cod e = 3205) NEGATIVE OPIATES (test code = 3209) NEGATIVE OXYCODONE (test code = 89168) NEGATIVE PHENCYCLIDINE (test code = 3210) NEGATIVE METHADONE (test code = 3207) NEGATIVE BUPRENORPHINE (test code = 16243) NEGATIVE SOURCE (test code = 584751) URINE Peter LoftonHIV 1/2 4TH GEN, RFLX [id number] 00:00:00* Test Item Value Reference Range Interpretation Comme nts HIV 1/2 4TH GEN, RFLX CONF ( test code = 3514) NON-REACTIVE Peter [id number] 00:00:00* Test Item Value Reference Range Interpretation Comme nts RPR RESULT (test code = 3501) NON-REACTIVE RPR TITER (test code = 3500) NOT INDIC. TITER Peter LoftonCBC W/AUTO [id number] 00:00:00* Test Item Value Reference Range Interpretation [...] ABS NUCLEATED RBCS (test cod e = 30287) 0.00 K/UL Peter LoftonDRUG ABUSE SCREEN 10 REFLEX [id number] 00:00:00* Test Item Value Reference Range Interpretation Comme nts AMPHETAMINES (test code = 3201) NEGATIVE BARBITURATES (test code = 3202) NEGATIVE BENZODIAZEPINES (test code = 3203) NEGATIVE CANNABINOIDS (test code = 3204) NEGATIVE COCAINE METABOLITE (test cod e = 3205) NEGATIVE OPIATES (test code = 3209) NEGATIVE OXYCODONE (test code = 68552) NEGATIVE PHENCYCLIDINE (test code = 3210) NEGATIVE METHADONE (test code = 3207) NEGATIVE BUPRENORPHINE (test code = 68924) NEGATIVE SOURCE (test code = 351621) URINE Peter LoftonHIV 1/2 4TH GEN, RFLX [id number] 00:00:00* Test Item Value Reference Range Interpretation Comme nts HIV 1/2 4TH GEN, RFLX CONF ( test code = 3514) NON-REACTIVE Peter [id number] 00:00:00* Test Item Value Reference Range Interpretation Comme nts RPR RESULT (test code = 3501) NON-REACTIVE RPR TITER (test code = 3500) NOT INDIC. TITER Peter LoftonCBC W/AUTO [id number] 00:00:00* Test Item Value Reference Range Interpretation [...] ABS NUCLEATED RBCS (test cod e = 19264) 0.00 K/UL Peter LoftonDRUG ABUSE SCREEN 10 REFLEX [id number] 00:00:00* Test Item Value Reference Range Interpretation Comme nts AMPHETAMINES (test code = 3201) NEGATIVE BARBITURATES (test code = 3202) NEGATIVE BENZODIAZEPINES (test code = 3203) NEGATIVE CANNABINOIDS (test code = 3204) NEGATIVE COCAINE METABOLITE (test cod e = 3205) NEGATIVE OPIATES (test code = 3209) NEGATIVE OXYCODONE (test code = 71855) NEGATIVE PHENCYCLIDINE (test code = 3210) NEGATIVE METHADONE (test code = 3207) NEGATIVE BUPRENORPHINE (test code = 91213) NEGATIVE SOURCE (test code = 705060) URINE Peter LoftonHIV 1/2 4TH GEN, RFLX [id number] 00:00:00* Test Item Value Reference Range Interpretation Comme nts HIV 1/2 4TH GEN, RFLX CONF ( test code = 3514) NON-REACTIVE Peter [id number] 00:00:00* Test Item Value Reference Range Interpretation Comme nts RPR RESULT (test code = 3501) NON-REACTIVE RPR TITER (test code = 3500) NOT INDIC. TITER Peter LoftonCBC W/AUTO [id number] 00:00:00* Test Item Value Reference Range Interpretation [...] ABS NUCLEATED RBCS (test cod e = 11423) 0.00 K/UL Peter LoftonDRUG ABUSE SCREEN 10 REFLEX [id number] 00:00:00* Test Item Value Reference Range Interpretation Comme nts AMPHETAMINES (test code = 3201) NEGATIVE BARBITURATES (test code = 3202) NEGATIVE BENZODIAZEPINES (test code = 3203) NEGATIVE CANNABINOIDS (test code = 3204) NEGATIVE COCAINE METABOLITE (test cod e = 3205) NEGATIVE OPIATES (test code = 3209) NEGATIVE OXYCODONE (test code = 99200) NEGATIVE PHENCYCLIDINE (test code = 3210) NEGATIVE METHADONE (test code = 3207) NEGATIVE BUPRENORPHINE (test code = 23888) NEGATIVE SOURCE (test code = 050682) URINE Peter LoftonHIV 1/2 4TH GEN, RFLX [id number] 00:00:00* Test Item Value Reference Range Interpretation Comme nts HIV 1/2 4TH GEN, RFLX CONF ( test code = 3514) NON-REACTIVE Peter [id number] 00:00:00* Test Item Value Reference Range Interpretation Comme nts RPR RESULT (test code = 3501) NON-REACTIVE RPR TITER (test code = 3500) NOT INDIC. TITER Peter LoftonCBC W/AUTO [id number] 00:00:00* Test Item Value Reference Range Interpretation [...] ABS NUCLEATED RBCS (test cod e = 51890) 0.00 K/UL Peter LoftonDRUG ABUSE SCREEN 10 REFLEX [id number] 00:00:00* Test Item Value Reference Range Interpretation Comme nts AMPHETAMINES (test code = 3201) NEGATIVE BARBITURATES (test code = 3202) NEGATIVE BENZODIAZEPINES (test code = 3203) NEGATIVE CANNABINOIDS (test code = 3204) NEGATIVE COCAINE METABOLITE (test cod e = 3205) NEGATIVE OPIATES (test code = 3209) NEGATIVE OXYCODONE (test code = 75433) NEGATIVE PHENCYCLIDINE (test code = 3210) NEGATIVE METHADONE (test code = 3207) NEGATIVE BUPRENORPHINE (test code = 38277) NEGATIVE SOURCE (test code = 372663) URINE Peter LoftonHIV 1/2 4TH GEN, RFLX [id number] 00:00:00* Test Item Value Reference Range Interpretation Comme nts HIV 1/2 4TH GEN, RFLX CONF ( test code = 3514) NON-REACTIVE Peter [id number] 00:00:00* Test Item Value Reference Range Interpretation Comme nts RPR RESULT (test code = 3501) NON-REACTIVE RPR TITER (test code = 3500) NOT INDIC. TITER Peter LoftonCBC W/AUTO [id number] 00:00:00* Test Item Value Reference Range Interpretation [...] ABS NUCLEATED RBCS (test cod e = 34714) 0.00 K/UL Peter LoftonDRUG ABUSE SCREEN 10 REFLEX [id number] 00:00:00* Test Item Value Reference Range Interpretation Comme nts AMPHETAMINES (test code = 3201) NEGATIVE BARBITURATES (test code = 3202) NEGATIVE BENZODIAZEPINES (test code = 3203) NEGATIVE CANNABINOIDS (test code = 3204) NEGATIVE COCAINE METABOLITE (test cod e = 3205) NEGATIVE OPIATES (test code = 3209) NEGATIVE OXYCODONE (test code = 09711) NEGATIVE PHENCYCLIDINE (test code = 3210) NEGATIVE METHADONE (test code = 3207) NEGATIVE BUPRENORPHINE (test code = 79251) NEGATIVE SOURCE (test code = 863833) URINE Peter LoftonHIV 1/2 4TH GEN, RFLX [id number] 00:00:00* Test Item Value Reference Range Interpretation Comme nts HIV 1/2 4TH GEN, RFLX CONF ( test code = 3514) NON-REACTIVE Peter [id number] 00:00:00* Test Item Value Reference Range Interpretation Comme nts RPR RESULT (test code = 3501) NON-REACTIVE RPR TITER (test code = 3500) NOT INDIC. TITER Peter LoftonCBC W/AUTO [id number] 00:00:00* Test Item Value Reference Range Interpretation [...] ABS NUCLEATED RBCS (test cod e = 76112) 0.00 K/UL Peter LoftonDRUG ABUSE SCREEN 10 REFLEX [id number] 00:00:00* Test Item Value Reference Range Interpretation Comme nts AMPHETAMINES (test code = 3201) NEGATIVE BARBITURATES (test code = 3202) NEGATIVE BENZODIAZEPINES (test code = 3203) NEGATIVE CANNABINOIDS (test code = 3204) NEGATIVE COCAINE METABOLITE (test cod e = 3205) NEGATIVE OPIATES (test code = 3209) NEGATIVE OXYCODONE (test code = 71965) NEGATIVE PHENCYCLIDINE (test code = 3210) NEGATIVE METHADONE (test code = 3207) NEGATIVE BUPRENORPHINE (test code = 30607) NEGATIVE SOURCE (test code = 516859) URINE Peter LoftonHIV 1/2 4TH GEN, RFLX [id number] 00:00:00* Test Item Value Reference Range Interpretation Comme nts HIV 1/2 4TH GEN, RFLX CONF ( test code = 3514) NON-REACTIVE Peter [id number] 00:00:00* Test Item Value Reference Range Interpretation Comme nts RPR RESULT (test code = 3501) NON-REACTIVE RPR TITER (test code = 3500) NOT INDIC. TITER Peter LoftonCBC W/AUTO [id number] 00:00:00* Test Item Value Reference Range Interpretation [...] ABS NUCLEATED RBCS (test cod e = 17525) 0.00 K/UL Peter LoftonDRUG ABUSE SCREEN 10 REFLEX [id number] 00:00:00* Test Item Value Reference Range Interpretation Comme nts AMPHETAMINES (test code = 3201) NEGATIVE BARBITURATES (test code = 3202) NEGATIVE BENZODIAZEPINES (test code = 3203) NEGATIVE CANNABINOIDS (test code = 3204) NEGATIVE COCAINE METABOLITE (test cod e = 3205) NEGATIVE OPIATES (test code = 3209) NEGATIVE OXYCODONE (test code = 65477) NEGATIVE PHENCYCLIDINE (test code = 3210) NEGATIVE METHADONE (test code = 3207) NEGATIVE BUPRENORPHINE (test code = 90785) NEGATIVE SOURCE (test code = 128316) URINE Peter LoftonHIV 1/2 4TH GEN, RFLX [id number] 00:00:00* Test Item Value Reference Range Interpretation Comme nts HIV 1/2 4TH GEN, RFLX CONF ( test code = 3514) NON-REACTIVE Peter [id number] 00:00:00* Test Item Value Reference Range Interpretation Comme nts RPR RESULT (test code = 3501) NON-REACTIVE RPR TITER (test code = 3500) NOT INDIC. TITER Peter LoftonCBC W/AUTO [id number] 00:00:00* Test Item Value Reference Range Interpretation [...] ABS NUCLEATED RBCS (test cod e = 32622) 0.00 K/UL Peter LoftonDRUG ABUSE SCREEN 10 REFLEX [id number] 00:00:00* Test Item Value Reference Range Interpretation Comme nts AMPHETAMINES (test code = 3201) NEGATIVE BARBITURATES (test code = 3202) NEGATIVE BENZODIAZEPINES (test code = 3203) NEGATIVE CANNABINOIDS (test code = 3204) NEGATIVE COCAINE METABOLITE (test cod e = 3205) NEGATIVE OPIATES (test code = 3209) NEGATIVE OXYCODONE (test code = 71604) NEGATIVE PHENCYCLIDINE (test code = 3210) NEGATIVE METHADONE (test code = 3207) NEGATIVE BUPRENORPHINE (test code = 34104) NEGATIVE SOURCE (test code = 410328) URINE Peter LoftonHIV 1/2 4TH GEN, RFLX [id number] 00:00:00* Test Item Value Reference Range Interpretation Comme nts HIV 1/2 4TH GEN, RFLX CONF ( test code = 3514) NON-REACTIVE Peter [id number] 00:00:00* Test Item Value Reference Range Interpretation Comme nts RPR RESULT (test code = 3501) NON-REACTIVE RPR TITER (test code = 3500) NOT INDIC. TITER Peter LoftonCBC W/AUTO [id number] 00:00:00* Test Item Value Reference Range Interpretation [...] ABS NUCLEATED RBCS (test cod e = 68982) 0.00 K/UL Peter LoftonDRUG ABUSE SCREEN 10 REFLEX [id number] 00:00:00* Test Item Value Reference Range Interpretation Comme nts AMPHETAMINES (test code = 3201) NEGATIVE BARBITURATES (test code = 3202) NEGATIVE BENZODIAZEPINES (test code = 3203) NEGATIVE CANNABINOIDS (test code = 3204) NEGATIVE COCAINE METABOLITE (test cod e = 3205) NEGATIVE OPIATES (test code = 3209) NEGATIVE OXYCODONE (test code = 63306) NEGATIVE PHENCYCLIDINE (test code = 3210) NEGATIVE METHADONE (test code = 3207) NEGATIVE BUPRENORPHINE (test code = 46482) NEGATIVE SOURCE (test code = 568841) URINE Peter LoftonHIV 1/2 4TH GEN, RFLX [id number] 00:00:00* Test Item Value Reference Range Interpretation Comme nts HIV 1/2 4TH GEN, RFLX CONF ( test code = 3514) NON-REACTIVE Peter [id number] 00:00:00* Test Item Value Reference Range Interpretation Comme nts RPR RESULT (test code = 3501) NON-REACTIVE RPR TITER (test code = 3500) NOT INDIC. TITER Peter LoftonCBC W/AUTO [id number] 00:00:00* Test Item Value Reference Range Interpretation [...] ABS NUCLEATED RBCS (test cod e = 61281) 0.00 K/UL Peter LoftonDRUG ABUSE SCREEN 10 REFLEX [id number] 00:00:00* Test Item Value Reference Range Interpretation Comme nts AMPHETAMINES (test code = 3201) NEGATIVE BARBITURATES (test code = 3202) NEGATIVE BENZODIAZEPINES (test code = 3203) NEGATIVE CANNABINOIDS (test code = 3204) NEGATIVE COCAINE METABOLITE (test cod e = 3205) NEGATIVE OPIATES (test code = 3209) NEGATIVE OXYCODONE (test code = 59729) NEGATIVE PHENCYCLIDINE (test code = 3210) NEGATIVE METHADONE (test code = 3207) NEGATIVE BUPRENORPHINE (test code = 92082) NEGATIVE SOURCE (test code = 495888) URINE Peter LoftonHIV 1/2 4TH GEN, RFLX [id number] 00:00:00* Test Item Value Reference Range Interpretation Comme nts HIV 1/2 4TH GEN, RFLX CONF ( test code = 3514) NON-REACTIVE Peter [id number] 00:00:00* Test Item Value Reference Range Interpretation Comme nts RPR RESULT (test code = 3501) NON-REACTIVE RPR TITER (test code = 3500) NOT INDIC. TITER Peter LoftonCBC W/AUTO [id number] 00:00:00* Test Item Value Reference Range Interpretation [...] ABS NUCLEATED RBCS (test cod e = 50005) 0.00 K/UL Peter LoftonDRUG ABUSE SCREEN 10 REFLEX [id number] 00:00:00* Test Item Value Reference Range Interpretation Comme nts AMPHETAMINES (test code = 3201) NEGATIVE BARBITURATES (test code = 3202) NEGATIVE BENZODIAZEPINES (test code = 3203) NEGATIVE CANNABINOIDS (test code = 3204) NEGATIVE COCAINE METABOLITE (test cod e = 3205) NEGATIVE OPIATES (test code = 3209) NEGATIVE OXYCODONE (test code = 91537) NEGATIVE PHENCYCLIDINE (test code = 3210) NEGATIVE METHADONE (test code = 3207) NEGATIVE BUPRENORPHINE (test code = 32828) NEGATIVE SOURCE (test code = 040799) URINE Peter LoftonHIV 1/2 4TH GEN, RFLX [id number] 00:00:00* Test Item Value Reference Range Interpretation Comme nts HIV 1/2 4TH GEN, RFLX CONF ( test code = 3514) NON-REACTIVE Peter [id number] 00:00:00* Test Item Value Reference Range Interpretation Comme nts RPR RESULT (test code = 3501) NON-REACTIVE RPR TITER (test code = 3500) NOT INDIC. TITER Peter LoftonCBC W/AUTO [id number] 00:00:00* Test Item Value Reference Range Interpretation [...] ABS NUCLEATED RBCS (test cod e = 45326) 0.00 K/UL Peter LoftonDRUG ABUSE SCREEN 10 REFLEX [id number] 00:00:00* Test Item Value Reference Range Interpretation Comme nts AMPHETAMINES (test code = 3201) NEGATIVE BARBITURATES (test code = 3202) NEGATIVE BENZODIAZEPINES (test code = 3203) NEGATIVE CANNABINOIDS (test code = 3204) NEGATIVE COCAINE METABOLITE (test cod e = 3205) NEGATIVE OPIATES (test code = 3209) NEGATIVE OXYCODONE (test code = 03745) NEGATIVE PHENCYCLIDINE (test code = 3210) NEGATIVE METHADONE (test code = 3207) NEGATIVE BUPRENORPHINE (test code = 26704) NEGATIVE SOURCE (test code = 175962) URINE Peter LoftonHIV 1/2 4TH GEN, RFLX [id number] 00:00:00* Test Item Value Reference Range Interpretation Comme nts HIV 1/2 4TH GEN, RFLX CONF ( test code = 3514) NON-REACTIVE Peter [id number] 00:00:00* Test Item Value Reference Range Interpretation Comme nts RPR RESULT (test code = 3501) NON-REACTIVE RPR TITER (test code = 3500) NOT INDIC. TITER Peter LoftonCBC W/AUTO [id number] 00:00:00* Test Item Value Reference Range Interpretation [...] ABS NUCLEATED RBCS (test cod e = 88919) 0.00 K/UL Peter LoftonDRUG ABUSE SCREEN 10 REFLEX [id number] 00:00:00* Test Item Value Reference Range Interpretation Comme nts AMPHETAMINES (test code = 3201) NEGATIVE BARBITURATES (test code = 3202) NEGATIVE BENZODIAZEPINES (test code = 3203) NEGATIVE CANNABINOIDS (test code = 3204) NEGATIVE COCAINE METABOLITE (test cod e = 3205) NEGATIVE OPIATES (test code = 3209) NEGATIVE OXYCODONE (test code = 74186) NEGATIVE PHENCYCLIDINE (test code = 3210) NEGATIVE METHADONE (test code = 3207) NEGATIVE BUPRENORPHINE (test code = 39757) NEGATIVE SOURCE (test code = 626071) URINE Peter LoftonHIV 1/2 4TH GEN, RFLX [id number] 00:00:00* Test Item Value Reference Range Interpretation Comme nts HIV 1/2 4TH GEN, RFLX CONF ( test code = 3514) NON-REACTIVE Peter [id number] 00:00:00* Test Item Value Reference Range Interpretation Comme nts RPR RESULT (test code = 3501) NON-REACTIVE RPR TITER (test code = 3500) NOT INDIC. TITER Peter LoftonCBC W/AUTO [id number] 00:00:00* Test Item Value Reference Range Interpretation [...] ABS NUCLEATED RBCS (test cod e = 00927) 0.00 K/UL Peter LoftonDRUG ABUSE SCREEN 10 REFLEX [id number] 00:00:00* Test Item Value Reference Range Interpretation Comme nts AMPHETAMINES (test code = 3201) NEGATIVE BARBITURATES (test code = 3202) NEGATIVE BENZODIAZEPINES (test code = 3203) NEGATIVE CANNABINOIDS (test code = 3204) NEGATIVE COCAINE METABOLITE (test cod e = 3205) NEGATIVE OPIATES (test code = 3209) NEGATIVE OXYCODONE (test code = 00270) NEGATIVE PHENCYCLIDINE (test code = 3210) NEGATIVE METHADONE (test code = 3207) NEGATIVE BUPRENORPHINE (test code = 13858) NEGATIVE SOURCE (test code = 336818) URINE Peter LoftonHIV 1/2 4TH GEN, RFLX [id number] 00:00:00* Test Item Value Reference Range Interpretation Comme nts HIV 1/2 4TH GEN, RFLX CONF ( test code = 3514) NON-REACTIVE Peter [id number] 00:00:00* Test Item Value Reference Range Interpretation Comme nts RPR RESULT (test code = 3501) NON-REACTIVE RPR TITER (test code = 3500) NOT INDIC. TITER Peter LoftonCBC W/AUTO [id number] 00:00:00* Test Item Value Reference Range Interpretation [...] ABS NUCLEATED RBCS (test cod e = 49660) 0.00 K/UL Peter LoftonDRUG ABUSE SCREEN 10 REFLEX [id number] 00:00:00* Test Item Value Reference Range Interpretation Comme nts AMPHETAMINES (test code = 3201) NEGATIVE BARBITURATES (test code = 3202) NEGATIVE BENZODIAZEPINES (test code = 3203) NEGATIVE CANNABINOIDS (test code = 3204) NEGATIVE COCAINE METABOLITE (test cod e = 3205) NEGATIVE OPIATES (test code = 3209) NEGATIVE OXYCODONE (test code = 88799) NEGATIVE PHENCYCLIDINE (test code = 3210) NEGATIVE METHADONE (test code = 3207) NEGATIVE BUPRENORPHINE (test code = 32845) NEGATIVE SOURCE (test code = 351258) URINE Peter LoftonHIV 1/2 4TH GEN, RFLX [id number] 00:00:00* Test Item Value Reference Range Interpretation Comme nts HIV 1/2 4TH GEN, RFLX CONF ( test code = 3514) NON-REACTIVE Peter [id number] 00:00:00* Test Item Value Reference Range Interpretation Comme nts RPR RESULT (test code = 3501) NON-REACTIVE RPR TITER (test code = 3500) NOT INDIC. TITER Peter LoftonCBC W/AUTO [id number] 00:00:00* Test Item Value Reference Range Interpretation [...] ABS NUCLEATED RBCS (test cod e = 04270) 0.00 K/UL Peter LoftonDRUG ABUSE SCREEN 10 REFLEX [id number] 00:00:00* Test Item Value Reference Range Interpretation Comme nts AMPHETAMINES (test code = 3201) NEGATIVE BARBITURATES (test code = 3202) NEGATIVE BENZODIAZEPINES (test code = 3203) NEGATIVE CANNABINOIDS (test code = 3204) NEGATIVE COCAINE METABOLITE (test cod e = 3205) NEGATIVE OPIATES (test code = 3209) NEGATIVE OXYCODONE (test code = 78035) NEGATIVE PHENCYCLIDINE (test code = 3210) NEGATIVE METHADONE (test code = 3207) NEGATIVE BUPRENORPHINE (test code = 75830) NEGATIVE SOURCE (test code = 762710) URINE Peter LoftonHIV 1/2 4TH GEN, RFLX [id number] 00:00:00* Test Item Value Reference Range Interpretation Comme nts HIV 1/2 4TH GEN, RFLX CONF ( test code = 3514) NON-REACTIVE Peter [id number] 00:00:00* Test Item Value Reference Range Interpretation Comme nts RPR RESULT (test code = 3501) NON-REACTIVE RPR TITER (test code = 3500) NOT INDIC. TITER Peter LoftonCBC W/AUTO [id number] 00:00:00* Test Item Value Reference Range Interpretation [...] ABS NUCLEATED RBCS (test cod e = 99727) 0.00 K/UL Peter Ugarte [id number] 00:00:00* Test Item Value Reference Range Interpretation Comme nts CULTURE, URINE (test code = 28916) SPECIMEN NUMBER: [id number] Peter Ugarte [id number] 00:00:00* Test Item Value Reference Range Interpretation Comme nts CULTURE, URINE (test code = 26283) SPECIMEN NUMBER: [id number] Peter Ugarte [id number] 00:00:00* Test Item Value Reference Range Interpretation Comme nts CULTURE, URINE (test code = 19558) SPECIMEN NUMBER: [id number] Peter Ugarte [id number] 00:00:00* Test Item Value Reference Range Interpretation Comme nts CULTURE, URINE (test code = 54800) SPECIMEN NUMBER: [id number] Peter Ugarte [id number] 00:00:00* Test Item Value Reference Range Interpretation Comme nts CULTURE, URINE (test code = 60900) SPECIMEN NUMBER: [id number] Peter Ugarte [id number] 00:00:00* Test Item Value Reference Range Interpretation Comme nts CULTURE, URINE (test code = 87097) SPECIMEN NUMBER: [id number] Peter Ugarte [id number] 00:00:00* Test Item Value Reference Range Interpretation Comme nts CULTURE, URINE (test code = 60030) SPECIMEN NUMBER: [id number] Peter Ugarte [id number] 00:00:00* Test Item Value Reference Range Interpretation Comme nts CULTURE, URINE (test code = 88625) SPECIMEN NUMBER: [id number] Peter Ugarte, [id number] 00:00:00* Test Item Value Reference Range Interpretation Comme nts CULTURE, URINE (test code = 53572) SPECIMEN NUMBER: [id number] Peter Ugarte, [id number] 00:00:00* Test Item Value Reference Range Interpretation Comme nts CULTURE, URINE (test code = 00273) SPECIMEN NUMBER: [id number] Peter Ugarte [id number] 00:00:00* Test Item Value Reference Range Interpretation Comme nts CULTURE, URINE (test code = 46687) SPECIMEN NUMBER: [id number] Peter Ugarte, [id number] 00:00:00* Test Item Value Reference Range Interpretation Comme nts CULTURE, URINE (test code = 95995) SPECIMEN NUMBER: [id number] Peter Ugarte, [id number] 00:00:00* Test Item Value Reference Range Interpretation Comme nts CULTURE, URINE (test code = 43550) SPECIMEN NUMBER: [id number] Peter Ugarte, [id number] 00:00:00* Test Item Value Reference Range Interpretation Comme nts CULTURE, URINE (test code = 86591) SPECIMEN NUMBER: [id number] Peter HurdLTBRYAN, [id number] 00:00:00* Test Item Value Reference Range Interpretation Comme nts CULTURE, URINE (test code = 56191) SPECIMEN NUMBER: [id number] Peter HurdLTBRYAN, [id number] 00:00:00* Test Item Value Reference Range Interpretation Comme nts CULTURE, URINE (test code = 32078) SPECIMEN NUMBER: [id number] Peter LoftonCULTURE, [id number] 00:00:00* Test Item Value Reference Range Interpretation Comme nts CULTURE, URINE (test code = 88919) SPECIMEN NUMBER: [id number] Peter Romero AustinVAGINAL PATHOGENS DNA [id number] 00:00:00* Test Item Value Reference Range Interpretation Comme nts GEORGETTE SPECIES (test code = ) NEGATIVE G. VAGINALIS (test code = 58566) POSITIVE T. VAGINALIS (test code = 77167) NEGATIVE Peter Romero AustinVAGINAL PATHOGENS DNA [id number] 00:00:00* Test Item Value Reference Range Interpretation Comme nts GEORGETTE SPECIES (test code = 31028) NEGATIVE G. VAGINALIS (test code = 44419) POSITIVE T. VAGINALIS (test code = 51130) NEGATIVE Peter Romero AustinVAGINAL PATHOGENS DNA [id number] 00:00:00* Test Item Value Reference Range Interpretation Comme nts GEORGETTE SPECIES (test code = 14428) NEGATIVE G. VAGINALIS (test code = 56917) POSITIVE T. VAGINALIS (test code = 55949) NEGATIVE Peter Romero AustinVAGINAL PATHOGENS DNA [id number] 00:00:00* Test Item Value Reference Range Interpretation Comme nts GEORGETTE SPECIES (test code = 37303) NEGATIVE G. VAGINALIS (test code = 40303) POSITIVE T. VAGINALIS (test code = 56529) NEGATIVE Peter Romero AustinVAGINAL PATHOGENS DNA [id number] 00:00:00* Test Item Value Reference Range Interpretation Comme nts GEORGETTE SPECIES (test code = 60817) NEGATIVE G. VAGINALIS (test code = 17415) POSITIVE T. VAGINALIS (test code = 74192) NEGATIVE Peter Romero AustinVAGINAL PATHOGENS DNA [id number] 00:00:00* Test Item Value Reference Range Interpretation Comme nts GEORGETTE SPECIES (test code = ) NEGATIVE G. VAGINALIS (test code = 82252) POSITIVE T. VAGINALIS (test code = 76633) NEGATIVE Peter Romero AustinVAGINAL PATHOGENS DNA [id number] 00:00:00* Test Item Value Reference Range Interpretation Comme nts GEORGETTE SPECIES (test code = 40231) NEGATIVE G. VAGINALIS (test code = 86065) POSITIVE T. VAGINALIS (test code = 94112) NEGATIVE Peter Nick AustinVAGINAL PATHOGENS DNA [id number] 00:00:00* Test Item Value Reference Range Interpretation Comme nts GEORGETTE SPECIES (test code = 15926) NEGATIVE G. VAGINALIS (test code = 75679) POSITIVE T. VAGINALIS (test code = 36701) NEGATIVE Peter F AustinVAGINAL PATHOGENS DNA [id number] 00:00:00* Test Item Value Reference Range Interpretation Comme nts GEORGETTE SPECIES (test code = 23364) NEGATIVE G. VAGINALIS (test code = 30588) POSITIVE T. VAGINALIS (test code = 21645) NEGATIVE Peter Romero AustinVAGINAL PATHOGENS DNA [id number] 00:00:00* Test Item Value Reference Range Interpretation Comme nts GEORGETTE SPECIES (test code = ) NEGATIVE G. VAGINALIS (test code = 08477) POSITIVE T. VAGINALIS (test code = 71180) NEGATIVE Peter Romero AustinVAGINAL PATHOGENS DNA [id number] 00:00:00* Test Item Value Reference Range Interpretation Comme nts GEORGETTE SPECIES (test code = 47856) NEGATIVE G. VAGINALIS (test code = 85457) POSITIVE T. VAGINALIS (test code = 09556) NEGATIVE Peter F AustinVAGINAL PATHOGENS DNA [id number] 00:00:00* Test Item Value Reference Range Interpretation Comme nts GEORGETTE SPECIES (test code = 90187) NEGATIVE G. VAGINALIS (test code = 30053) POSITIVE T. VAGINALIS (test code = 16956) NEGATIVE Peter F AustinVAGINAL PATHOGENS DNA [id number] 00:00:00* Test Item Value Reference Range Interpretation Comme nts GEORGETTE SPECIES (test code = 39260) NEGATIVE G. VAGINALIS (test code = 65668) POSITIVE T. VAGINALIS (test code = 69315) NEGATIVE Peter Romero AustinVAGINAL PATHOGENS DNA [id number] 00:00:00* Test Item Value Reference Range Interpretation Comme nts GEORGETTE SPECIES (test code = ) NEGATIVE G. VAGINALIS (test code = 25045) POSITIVE T. VAGINALIS (test code = ) NEGATIVE Peter Romero AustinVAGINAL PATHOGENS DNA [id number] 00:00:00* Test Item Value Reference Range Interpretation Comme nts GEORGETTE SPECIES (test code = ) NEGATIVE G. VAGINALIS (test code = 03464) POSITIVE T. VAGINALIS (test code = 30818) NEGATIVE Peter Romero AustinVAGINAL PATHOGENS DNA [id number] 00:00:00* Test Item Value Reference Range Interpretation Comme nts GEORGETTE SPECIES (test code = ) NEGATIVE G. VAGINALIS (test code = 91740) POSITIVE T. VAGINALIS (test code = 33826) NEGATIVE Peter Romero AustinVAGINAL PATHOGENS DNA [id number] 00:00:00* Test Item Value Reference Range Interpretation Comme nts GEORGETTE SPECIES (test code = ) NEGATIVE G. VAGINALIS (test code = 88345) POSITIVE T. VAGINALIS (test code = 60884) NEGATIVE Peter Romero AustinCREATININE, 24 HOUR [id number] 00:00:00* Test Item Value Reference Range Interpretation Comme nts CREATININE, URINE, CONC. (te st code = 2071) 34.7 MG/DL CREATININE, URINE, 24 HR (te st code = 2109) 1.0 GM/24HOURS TOTAL URINE VOLUME (test cod e = 2055) 3000 ML Peter Romero AustinPROTEIN, 24 HOUR [id number] 00:00:00* Test Item Value Reference Range Interpretation Comme nts PROTEIN, URINE, CONC. (test code = 2103) 15 MG/DL PROTEIN, URINE 24 HR (test code = 2059) 450 MG/24HOURS TOTAL URINE VOLUME (test cod e = 2055) 3000 ML Peter Romero AustinCREATININE, 24 HOUR [id number] 00:00:00* Test Item Value Reference Range Interpretation Comme nts CREATININE, URINE, CONC. (te st code = 2071) 34.7 MG/DL CREATININE, URINE, 24 HR (te st code = 2109) 1.0 GM/24HOURS TOTAL URINE VOLUME (test cod e = 2055) 3000 ML Peter F AustinPROTEIN, 24 HOUR [id number] 00:00:00* Test Item Value Reference Range Interpretation Comme nts PROTEIN, URINE, CONC. (test code = 2103) 15 MG/DL PROTEIN, URINE 24 HR (test code = 2059) 450 MG/24HOURS TOTAL URINE VOLUME (test cod e = 2055) 3000 ML Peter F AustinCREATININE, 24 HOUR [id number] 00:00:00* Test Item Value Reference Range Interpretation Comme nts CREATININE, URINE, CONC. (te st code = 2071) 34.7 MG/DL CREATININE, URINE, 24 HR (te st code = 2109) 1.0 GM/24HOURS TOTAL URINE VOLUME (test cod e = 2055) 3000 ML Peter F AustinPROTEIN, 24 HOUR [id number] 00:00:00* Test Item Value Reference Range Interpretation Comme nts PROTEIN, URINE, CONC. (test code = 2103) 15 MG/DL PROTEIN, URINE 24 HR (test code = 2059) 450 MG/24HOURS TOTAL URINE VOLUME (test cod e = 2055) 3000 ML Peter F AustinCREATININE, 24 HOUR [id number] 00:00:00* Test Item Value Reference Range Interpretation Comme nts CREATININE, URINE, CONC. (te st code = 2071) 34.7 MG/DL CREATININE, URINE, 24 HR (te st code = 2109) 1.0 GM/24HOURS TOTAL URINE VOLUME (test cod e = 2055) 3000 ML Peter F AustinPROTEIN, 24 HOUR [id number] 00:00:00* Test Item Value Reference Range Interpretation Comme nts PROTEIN, URINE, CONC. (test code = 2103) 15 MG/DL PROTEIN, URINE 24 HR (test code = 2059) 450 MG/24HOURS TOTAL URINE VOLUME (test cod e = 2055) 3000 ML Peter F AustinCREATININE, 24 HOUR [id number] 00:00:00* Test Item Value Reference Range Interpretation Comme nts CREATININE, URINE, CONC. (te st code = 2071) 34.7 MG/DL CREATININE, URINE, 24 HR (te st code = 0) 1.0 GM/24HOURS TOTAL URINE VOLUME (test cod e = 2055) 3000 ML Peter F AustinPROTEIN, 24 HOUR [id number] 00:00:00* Test Item Value Reference Range Interpretation Comme nts PROTEIN, URINE, CONC. (test code = 2103) 15 MG/DL PROTEIN, URINE 24 HR (test code = 2059) 450 MG/24HOURS TOTAL URINE VOLUME (test cod e = 2055) 3000 ML Peter F AustinCREATININE, 24 HOUR [id number] 00:00:00* Test Item Value Reference Range Interpretation Comme nts CREATININE, URINE, CONC. (te st code = 2071) 34.7 MG/DL CREATININE, URINE, 24 HR (te st code = 2109) 1.0 GM/24HOURS TOTAL URINE VOLUME (test cod e = 2055) 3000 ML Peter F AustinPROTEIN, 24 HOUR [id number] 00:00:00* Test Item Value Reference Range Interpretation Comme nts PROTEIN, URINE, CONC. (test code = 2103) 15 MG/DL PROTEIN, URINE 24 HR (test code = 2059) 450 MG/24HOURS TOTAL URINE VOLUME (test cod e = 2055) 3000 ML Peter F AustinCREATININE, 24 HOUR [id number] 00:00:00* Test Item Value Reference Range Interpretation Comme nts CREATININE, URINE, CONC. (te st code = 2071) 34.7 MG/DL CREATININE, URINE, 24 HR (te st code = 2109) 1.0 GM/24HOURS TOTAL URINE VOLUME (test cod e = 2055) 3000 ML Peter F AustinPROTEIN, 24 HOUR [id number] 00:00:00* Test Item Value Reference Range Interpretation Comme nts PROTEIN, URINE, CONC. (test code = 2103) 15 MG/DL PROTEIN, URINE 24 HR (test code = 2059) 450 MG/24HOURS TOTAL URINE VOLUME (test cod e = 2055) 3000 ML Peter F AustinCREATININE, 24 HOUR [id number] 00:00:00* Test Item Value Reference Range Interpretation Comme nts CREATININE, URINE, CONC. (te st code = 2071) 34.7 MG/DL CREATININE, URINE, 24 HR (te st code = 2109) 1.0 GM/24HOURS TOTAL URINE VOLUME (test cod e = 2055) 3000 ML Peter F AustinPROTEIN, 24 HOUR [id number] 00:00:00* Test Item Value Reference Range Interpretation Comme nts PROTEIN, URINE, CONC. (test code = 2103) 15 MG/DL PROTEIN, URINE 24 HR (test code = 2059) 450 MG/24HOURS TOTAL URINE VOLUME (test cod e = 2055) 3000 ML Peter F AustinCREATININE, 24 HOUR [id number] 00:00:00* Test Item Value Reference Range Interpretation Comme nts CREATININE, URINE, CONC. (te st code = 2071) 34.7 MG/DL CREATININE, URINE, 24 HR (te st code = 2109) 1.0 GM/24HOURS TOTAL URINE VOLUME (test cod e = 2055) 3000 ML Peter F AustinPROTEIN, 24 HOUR [id number] 00:00:00* Test Item Value Reference Range Interpretation Comme nts PROTEIN, URINE, CONC. (test code = 2103) 15 MG/DL PROTEIN, URINE 24 HR (test code = 2059) 450 MG/24HOURS TOTAL URINE VOLUME (test cod e = 2055) 3000 ML Peter F AustinCREATININE, 24 HOUR [id number] 00:00:00* Test Item Value Reference Range Interpretation Comme nts CREATININE, URINE, CONC. (te st code = 2071) 34.7 MG/DL CREATININE, URINE, 24 HR (te st code = 2109) 1.0 GM/24HOURS TOTAL URINE VOLUME (test cod e = 2055) 3000 ML Peter F AustinPROTEIN, 24 HOUR [id number] 00:00:00* Test Item Value Reference Range Interpretation Comme nts PROTEIN, URINE, CONC. (test code = 2103) 15 MG/DL PROTEIN, URINE 24 HR (test code = 2059) 450 MG/24HOURS TOTAL URINE VOLUME (test cod e = 2055) 3000 ML Peter F AustinCREATININE, 24 HOUR [id number] 00:00:00* Test Item Value Reference Range Interpretation Comme nts CREATININE, URINE, CONC. (te st code = 2071) 34.7 MG/DL CREATININE, URINE, 24 HR (te st code = 0) 1.0 GM/24HOURS TOTAL URINE VOLUME (test cod e = 2055) 3000 ML Peter F AustinPROTEIN, 24 HOUR [id number] 00:00:00* Test Item Value Reference Range Interpretation Comme nts PROTEIN, URINE, CONC. (test code = 2103) 15 MG/DL PROTEIN, URINE 24 HR (test code = 2059) 450 MG/24HOURS TOTAL URINE VOLUME (test cod e = 2055) 3000 ML Peter F AustinCREATININE, 24 HOUR [id number] 00:00:00* Test Item Value Reference Range Interpretation Comme nts CREATININE, URINE, CONC. (te st code = 2071) 34.7 MG/DL CREATININE, URINE, 24 HR (te st code = 2109) 1.0 GM/24HOURS TOTAL URINE VOLUME (test cod e = 2055) 3000 ML Peter F AustinPROTEIN, 24 HOUR [id number] 00:00:00* Test Item Value Reference Range Interpretation Comme nts PROTEIN, URINE, CONC. (test code = 2103) 15 MG/DL PROTEIN, URINE 24 HR (test code = 2059) 450 MG/24HOURS TOTAL URINE VOLUME (test cod e = 2055) 3000 ML Peter F AustinCREATININE, 24 HOUR [id number] 00:00:00* Test Item Value Reference Range Interpretation Comme nts CREATININE, URINE, CONC. (te st code = 2071) 34.7 MG/DL CREATININE, URINE, 24 HR (te st code = 2109) 1.0 GM/24HOURS TOTAL URINE VOLUME (test cod e = 2055) 3000 ML Peter F AustinPROTEIN, 24 HOUR [id number] 00:00:00* Test Item Value Reference Range Interpretation Comme nts PROTEIN, URINE, CONC. (test code = 2103) 15 MG/DL PROTEIN, URINE 24 HR (test code = 2059) 450 MG/24HOURS TOTAL URINE VOLUME (test cod e = 2055) 3000 ML Peter F AustinCREATININE, 24 HOUR [id number] 00:00:00* Test Item Value Reference Range Interpretation Comme nts CREATININE, URINE, CONC. (te st code = 2071) 34.7 MG/DL CREATININE, URINE, 24 HR (te st code = 0) 1.0 GM/24HOURS TOTAL URINE VOLUME (test cod e = 2055) 3000 ML Peter F AustinPROTEIN, 24 HOUR [id number] 00:00:00* Test Item Value Reference Range Interpretation Comme nts PROTEIN, URINE, CONC. (test code = 2103) 15 MG/DL PROTEIN, URINE 24 HR (test code = 2059) 450 MG/24HOURS TOTAL URINE VOLUME (test cod e = 2055) 3000 ML Peter F AustinCREATININE, 24 HOUR [id number] 00:00:00* Test Item Value Reference Range Interpretation Comme nts CREATININE, URINE, CONC. (te st code = 2071) 34.7 MG/DL CREATININE, URINE, 24 HR (te st code = 2109) 1.0 GM/24HOURS TOTAL URINE VOLUME (test cod e = 2055) 3000 ML Peter F AustinPROTEIN, 24 HOUR [id number] 00:00:00* Test Item Value Reference Range Interpretation Comme nts PROTEIN, URINE, CONC. (test code = 2103) 15 MG/DL PROTEIN, URINE 24 HR (test code = 2059) 450 MG/24HOURS TOTAL URINE VOLUME (test cod e = 2055) 3000 ML Peter F AustinCREATININE, 24 HOUR [id number] 00:00:00* Test Item Value Reference Range Interpretation Comme nts CREATININE, URINE, CONC. (te st code = 2071) 34.7 MG/DL CREATININE, URINE, 24 HR (te st code = 2109) 1.0 GM/24HOURS TOTAL URINE VOLUME (test cod e = 2055) 3000 ML Peter F AustinPROTEIN, 24 HOUR [id number] 00:00:00* Test Item Value Reference Range Interpretation Comme nts PROTEIN, URINE, CONC. (test code = 2103) 15 MG/DL PROTEIN, URINE 24 HR (test code = 2059) 450 MG/24HOURS TOTAL URINE VOLUME (test cod e = 2055) 3000 ML Peter F AustinCREATININE, 24 HOUR [id number] 00:00:00* Test Item Value Reference Range Interpretation Comme nts CREATININE, URINE, CONC. (te st code = 2071) 34.7 MG/DL CREATININE, URINE, 24 HR (te st code = 2109) 1.0 GM/24HOURS TOTAL URINE VOLUME (test cod e = 2055) 3000 ML Peter F AustinPROTEIN, 24 HOUR [id number] 00:00:00* Test Item Value Reference Range Interpretation Comme nts PROTEIN, URINE, CONC. (test code = 2103) 15 MG/DL PROTEIN, URINE 24 HR (test code = 2059) 450 MG/24HOURS TOTAL URINE VOLUME (test cod e = 2055) 3000 ML Peter Romero AustinCREATININE, 24 HOUR [id number] 00:00:00* Test Item Value Reference Range Interpretation Comme nts CREATININE, URINE, CONC. (te st code = 2071) 34.7 MG/DL CREATININE, URINE, 24 HR (te st code = 2109) 1.0 GM/24HOURS TOTAL URINE VOLUME (test cod e = 2055) 3000 ML Peter Romero AustinPROTEIN, 24 HOUR [id number] 00:00:00* Test Item Value Reference Range Interpretation Comme nts PROTEIN, URINE, CONC. (test code = 2103) 15 MG/DL PROTEIN, URINE 24 HR (test code = 2059) 450 MG/24HOURS TOTAL URINE VOLUME (test cod e = 2055) 3000 ML Peter Romero AustinMATERNAL AFP FOR NTD [id number] 08:28:36* Test Item Value Reference Range Interpretation Comme nts INTERPRETATION (test code = 002631) SCREEN NEGATIVE Neural tube defect risk (test code = 61386) 1:32503 Neural tube defect interpretation (test code = 50600) (NOTE) --- NORMAL - NOT AT INCREASED [...] 2657) 184 LBS INITIAL/REPEAT (test code = 558210) INITIAL FAMILY HISTORY OF NTD (test code = 231168) NO INSULIN DEP. DIABETIC (test code = 2659) NO RACE (test code = 2658) SMOKER? (test code = 694459) NO NUMBER OF GESTATIONS (test code = 33673) 1 GESTATIONAL AGE (test code = 2656) 18.7 WEEKS DETERMINED BY: (test code = 2654) US DATE OF SONOGRAM (test code = 85939) 10/19/2023 GESTATIONAL AGE AT SONO (test code = 2653) 10.6 WEEKS ADJUST AFP M.O.M. (test code = 2661) 0.76 M.O.M. AFP (test code = 03012) 33.1 NG/ML UNLESS OTHERWISE INDICATED, ALL TESTING PERFORMED AT [facility] [address] [place] [id number] FIRMWARE MANAGER: GOPAL BACON M.D. IA NUMBER [id number] [facility] [place]. [id number] MATERNAL AFP FOR NTD [id number] 00:00:00* Test Item Value Reference Range Interpretation Comme nts INTERPRETATION (test code = 869657) SCREEN NEGATIVE Neural tube defect risk (raghavendra t code = 65463) 1:02765 Neural tube defect interpretation (test code = 71108) (NOTE) DATE OF (test code = 2660) 1990 MATERNAL WEIGHT (test code = 2657) 184 LBS INITIAL/REPEAT (test code = 364947) INITIAL FAMILY HISTORY OF NTD (test code = 991874) NO INSULIN DEP. DIABETIC (test code = 2659) NO RACE (test code = 2658) SMOKER? (test code = 703792) NO NUMBER OF GESTATIONS (test code = 23362) 1 GESTATIONAL AGE (test code = 2656) 18.7 WEEKS DETERMINED BY: (test code = 2654) DATE OF SONOGRAM (test code = 91107) 10/19/2023 GESTATIONAL AGE AT SONO (raghavendra t code = 2653) 10.6 WEEKS ADJUST AFP M.O.M. (test code = 2661) 0.76 M.O.M. AFP (test code = 37351) 33.1 NG/ML [facility]MON[facility]FI[facility]ITALRNAL AFP FOR NTD [id number] 00:00:00* Test Item Value Reference Range Interpretation Comme nts INTERPRETATION (test code = 589129) SCREEN NEGATIVE Neural tube defect risk (raghavendra t code = 57213) 1:51923 Neural tube defect interpretation (test code = 66977) (NOTE) DATE OF (test code = 2660) 1990 MATERNAL WEIGHT (test code = 2657) 184 LBS INITIAL/REPEAT (test code = 654720) INITIAL FAMILY HISTORY OF NTD (test code = 021211) NO INSULIN DEP. DIABETIC (test code = 2659) NO RACE (test code = 2658) SMOKER? (test code = 311040) NO NUMBER OF GESTATIONS (test code = 55442) 1 GESTATIONAL AGE (test code = 2656) 18.7 WEEKS DETERMINED BY: (test code = 2654) US DATE OF SONOGRAM (test code = 19420) 10/19/2023 GESTATIONAL AGE AT SONO (raghavendra t code = 2653) 10.6 WEEKS ADJUST AFP M.O.M. (test code = 2661) 0.76 M.O.M. AFP (test code = 26726) 33.1 NG/ML Peter F AustinMATERNAL AFP FOR NTD [id number] 00:00:00* Test Item Value Reference Range Interpretation Comme nts INTERPRETATION (test code = 644948) SCREEN NEGATIVE Neural tube defect risk (raghavendra t code = 21208) 1:90892 Neural tube defect interpretation (test code = 67437) (NOTE) DATE OF (test code = 2660) 1990 MATERNAL WEIGHT (test code = 2657) 184 LBS INITIAL/REPEAT (test code = 813294) INITIAL FAMILY HISTORY OF NTD (test code = 925273) NO INSULIN DEP. DIABETIC (test code = 2659) NO RACE (test code = 2658) SMOKER? (test code = 507329) NO NUMBER OF GESTATIONS (test code = 87276) 1 GESTATIONAL AGE (test code = 2656) 18.7 WEEKS DETERMINED BY: (test code = 2654) US DATE OF SONOGRAM (test code = 56059) 10/19/2023 GESTATIONAL AGE AT SONO (raghavendra t code = 2653) 10.6 WEEKS ADJUST AFP M.O.M. (test code = 2661) 0.76 M.O.M. AFP (test code = 13030) 33.1 NG/ML Peter F AustinMATERNAL AFP FOR NTD [id number] 00:00:00* Test Item Value Reference Range Interpretation Comme nts INTERPRETATION (test code = 652104) SCREEN NEGATIVE Neural tube defect risk (raghavendra t code = 90644) 1:01182 Neural tube defect interpretation (test code = 29174) (NOTE) DATE OF (test code = 2660) 1990 MATERNAL WEIGHT (test code = 2657) 184 LBS INITIAL/REPEAT (test code = 203076) INITIAL FAMILY HISTORY OF NTD (test code = 262526) NO INSULIN DEP. DIABETIC (test code = 2659) NO RACE (test code = 2658) SMOKER? (test code = 217680) NO NUMBER OF GESTATIONS (test code = 08244) 1 GESTATIONAL AGE (test code = 2656) 18.7 WEEKS DETERMINED BY: (test code = 2654) US DATE OF SONOGRAM (test code = 50208) 10/19/2023 GESTATIONAL AGE AT SONO (raghavendra t code = 2653) 10.6 WEEKS ADJUST AFP M.O.M. (test code = 2661) 0.76 M.O.M. AFP (test code = 19344) 33.1 NG/ML Peter F AustinMATERNAL AFP FOR NTD [id number] 00:00:00* Test Item Value Reference Range Interpretation Comme nts INTERPRETATION (test code = 168388) SCREEN NEGATIVE Neural tube defect risk (raghavendra t code = 02522) 1:94833 Neural tube defect interpretation (test code = 01979) (NOTE) DATE OF (test code = 2660) 1990 MATERNAL WEIGHT (test code = 2657) 184 LBS INITIAL/REPEAT (test code = 195164) INITIAL FAMILY HISTORY OF NTD (test code = 432608) NO INSULIN DEP. DIABETIC (test code = 2659) NO RACE (test code = 2658) SMOKER? (test code = 433166) NO NUMBER OF GESTATIONS (test code = 97166) 1 GESTATIONAL AGE (test code = 2656) 18.7 WEEKS DETERMINED BY: (test code = 2654) US DATE OF SONOGRAM (test code = 90458) 10/19/2023 GESTATIONAL AGE AT SONO (raghavendra t code = 2653) 10.6 WEEKS ADJUST AFP M.O.M. (test code = 2661) 0.76 M.O.M. AFP (test code = 13672) 33.1 NG/ML Peter F AustinMATERNAL AFP FOR NTD [id number] 00:00:00* Test Item Value Reference Range Interpretation Comme nts INTERPRETATION (test code = 736571) SCREEN NEGATIVE Neural tube defect risk (raghavendra t code = 50079) 1:15097 Neural tube defect interpretation (test code = 99142) (NOTE) DATE OF (test code = 2660) 1990 MATERNAL WEIGHT (test code = 2657) 184 LBS INITIAL/REPEAT (test code = 739909) INITIAL FAMILY HISTORY OF NTD (test code = 137802) NO INSULIN DEP. DIABETIC (test code = 2659) NO RACE (test code = 2658) SMOKER? (test code = 668114) NO NUMBER OF GESTATIONS (test code = 36410) 1 GESTATIONAL AGE (test code = 2656) 18.7 WEEKS DETERMINED BY: (test code = 2654) US DATE OF SONOGRAM (test code = 72609) 10/19/2023 GESTATIONAL AGE AT SONO (raghavendra t code = 2653) 10.6 WEEKS ADJUST AFP M.O.M. (test code = 2661) 0.76 M.O.M. AFP (test code = 91439) 33.1 NG/ML Peter F AustinMATERNAL AFP FOR NTD [id number] 00:00:00* Test Item Value Reference Range Interpretation Comme nts INTERPRETATION (test code = 662621) SCREEN NEGATIVE Neural tube defect risk (raghavendra t code = 45126) 1:51917 Neural tube defect interpretation (test code = 40594) (NOTE) DATE OF (test code = 2660) 1990 MATERNAL WEIGHT (test code = 2657) 184 LBS INITIAL/REPEAT (test code = 939584) INITIAL FAMILY HISTORY OF NTD (test code = 594768) NO INSULIN DEP. DIABETIC (test code = 2659) NO RACE (test code = 2658) SMOKER? (test code = 452229) NO NUMBER OF GESTATIONS (test code = 59460) 1 GESTATIONAL AGE (test code = 2656) 18.7 WEEKS DETERMINED BY: (test code = 2654) US DATE OF SONOGRAM (test code = 81406) 10/19/2023 GESTATIONAL AGE AT SONO (raghavendra t code = 2653) 10.6 WEEKS ADJUST AFP M.O.M. (test code = 2661) 0.76 M.O.M. AFP (test code = 99314) 33.1 NG/ML Peter F AustinMATERNAL AFP FOR NTD [id number] 00:00:00* Test Item Value Reference Range Interpretation Comme nts INTERPRETATION (test code = 164056) SCREEN NEGATIVE Neural tube defect risk (raghavendra t code = 84101) 1:97887 Neural tube defect interpretation (test code = 74836) (NOTE) DATE OF (test code = 2660) 1990 MATERNAL WEIGHT (test code = 2657) 184 LBS INITIAL/REPEAT (test code = 996788) INITIAL FAMILY HISTORY OF NTD (test code = 190538) NO INSULIN DEP. DIABETIC (test code = 2659) NO RACE (test code = 2658) SMOKER? (test code = 723477) NO NUMBER OF GESTATIONS (test code = 51090) 1 GESTATIONAL AGE (test code = 2656) 18.7 WEEKS DETERMINED BY: (test code = 2654) US DATE OF SONOGRAM (test code = 67725) 10/19/2023 GESTATIONAL AGE AT SONO (raghavendra t code = 2653) 10.6 WEEKS ADJUST AFP M.O.M. (test code = 2661) 0.76 M.O.M. AFP (test code = 53515) 33.1 NG/ML Peter F AustinMATERNAL AFP FOR NTD [id number] 00:00:00* Test Item Value Reference Range Interpretation Comme nts INTERPRETATION (test code = 358958) SCREEN NEGATIVE Neural tube defect risk (raghavendra t code = 03487) 1:24069 Neural tube defect interpretation (test code = 60157) (NOTE) DATE OF (test code = 2660) 1990 MATERNAL WEIGHT (test code = 2657) 184 LBS INITIAL/REPEAT (test code = 279324) INITIAL FAMILY HISTORY OF NTD (test code = 707644) NO INSULIN DEP. DIABETIC (test code = 2659) NO RACE (test code = 2658) SMOKER? (test code = 016406) NO NUMBER OF GESTATIONS (test code = 81920) 1 GESTATIONAL AGE (test code = 2656) 18.7 WEEKS DETERMINED BY: (test code = 2654) US DATE OF SONOGRAM (test code = 82713) 10/19/[birth year]23 GESTATIONAL AGE AT SONO (raghavendra t code = 2653) 10.6 WEEKS ADJUST AFP M.O.M. (test code = 2661) 0.76 M.O.M. AFP (test code = 35684) 33.1 NG/ML Peter F AustinMATERNAL AFP FOR NTD [id number] 00:00:00* Test Item Value Reference Range Interpretation Comme nts INTERPRETATION (test code = 266269) SCREEN NEGATIVE Neural tube defect risk (raghavendra t code = 58813) 1:37770 Neural tube defect interpretation (test code = 04399) (NOTE) DATE OF (test code = 2660) 1990 MATERNAL WEIGHT (test code = 2657) 184 LBS INITIAL/REPEAT (test code = 691818) INITIAL FAMILY HISTORY OF NTD (test code = 392775) NO INSULIN DEP. DIABETIC (test code = 2659) NO RACE (test code = 2658) SMOKER? (test code = 166805) NO NUMBER OF GESTATIONS (test code = 56214) 1 GESTATIONAL AGE (test code = 2656) 18.7 WEEKS DETERMINED BY: (test code = 2654) US DATE OF SONOGRAM (test code = 69916) 10/19/[birth year]23 GESTATIONAL AGE AT SONO (raghavendra t code = 2653) 10.6 WEEKS ADJUST AFP M.O.M. (test code = 2661) 0.76 M.O.M. AFP (test code = 22554) 33.1 NG/ML Peter Romero AustinMATERNAL AFP FOR NTD [id number] 00:00:00* Test Item Value Reference Range Interpretation Comme nts INTERPRETATION (test code = 212533) SCREEN NEGATIVE Neural tube defect risk (raghavendra t code = 63717) 1:18677 Neural tube defect interpretation (test code = 19373) (NOTE) DATE OF (test code = 2660) 1990 MATERNAL WEIGHT (test code = 2657) 184 LBS INITIAL/REPEAT (test code = 249397) INITIAL FAMILY HISTORY OF NTD (test code = 924488) NO INSULIN DEP. DIABETIC (test code = 2659) NO RACE (test code = 2658) SMOKER? (test code = 346697) NO NUMBER OF GESTATIONS (test code = 09271) 1 GESTATIONAL AGE (test code = 2656) 18.7 WEEKS DETERMINED BY: (test code = 2654) US DATE OF SONOGRAM (test code = 90844) 10/19/2023 GESTATIONAL AGE AT SONO (raghavendra t code = 2653) 10.6 WEEKS ADJUST AFP M.O.M. (test code = 2661) 0.76 M.O.M. AFP (test code = 15212) 33.1 NG/ML Peter F AustinMATERNAL AFP FOR NTD [id number] 00:00:00* Test Item Value Reference Range Interpretation Comme nts INTERPRETATION (test code = 718677) SCREEN NEGATIVE Neural tube defect risk (raghavendra t code = 62118) 1:00018 Neural tube defect interpretation (test code = 99837) (NOTE) DATE OF (test code = 2660) 1990 MATERNAL WEIGHT (test code = 2657) 184 LBS INITIAL/REPEAT (test code = 574584) INITIAL FAMILY HISTORY OF NTD (test code = 968747) NO INSULIN DEP. DIABETIC (test code = 2659) NO RACE (test code = 2658) SMOKER? (test code = 086356) NO NUMBER OF GESTATIONS (test code = 71993) 1 GESTATIONAL AGE (test code = 2656) 18.7 WEEKS DETERMINED BY: (test code = 2654) US DATE OF SONOGRAM (test code = 96417) 10/19/2023 GESTATIONAL AGE AT SONO (raghavendra t code = 2653) 10.6 WEEKS ADJUST AFP M.O.M. (test code = 2661) 0.76 M.O.M. AFP (test code = 99707) 33.1 NG/ML Peter Romero AustinMATERNAL AFP FOR NTD [id number] 00:00:00* Test Item Value Reference Range Interpretation Comme nts INTERPRETATION (test code = 304594) SCREEN NEGATIVE Neural tube defect risk (raghavendra t code = 32127) 1:87506 Neural tube defect interpretation (test code = 84443) (NOTE) DATE OF (test code = 2660) 1990 MATERNAL WEIGHT (test code = 2657) 184 LBS INITIAL/REPEAT (test code = 934441) INITIAL FAMILY HISTORY OF NTD (test code = 662483) NO INSULIN DEP. DIABETIC (test code = 2659) NO RACE (test code = 2658) SMOKER? (test code = 849582) NO NUMBER OF GESTATIONS (test code = 44290) 1 GESTATIONAL AGE (test code = 2656) 18.7 WEEKS DETERMINED BY: (test code = 2654) US DATE OF SONOGRAM (test code = 10081) 10/19/2023 GESTATIONAL AGE AT SONO (raghavendra t code = 2653) 10.6 WEEKS ADJUST AFP M.O.M. (test code = 2661) 0.76 M.O.M. AFP (test code = 22666) 33.1 NG/ML Peter Romero AustinMATERNAL AFP FOR NTD [id number] 00:00:00* Test Item Value Reference Range Interpretation Comme nts INTERPRETATION (test code = 753383) SCREEN NEGATIVE Neural tube defect risk (raghavendra t code = 34662) 1:30364 Neural tube defect interpretation (test code = 31987) (NOTE) DATE OF (test code = 2660) 1990 MATERNAL WEIGHT (test code = 2657) 184 LBS INITIAL/REPEAT (test code = 120559) INITIAL FAMILY HISTORY OF NTD (test code = 338325) NO INSULIN DEP. DIABETIC (test code = 2659) NO RACE (test code = 2658) SMOKER? (test code = 375101) NO NUMBER OF GESTATIONS (test code = 53944) 1 GESTATIONAL AGE (test code = 2656) 18.7 WEEKS DETERMINED BY: (test code = 2654) US DATE OF SONOGRAM (test code = 44605) 10/19/2023 GESTATIONAL AGE AT SONO (raghavendra t code = 2653) 10.6 WEEKS ADJUST AFP M.O.M. (test code = 2661) 0.76 M.O.M. AFP (test code = 76233) 33.1 NG/ML Peter Romero AustinMATERNAL AFP FOR NTD [id number] 00:00:00* Test Item Value Reference Range Interpretation Comme nts INTERPRETATION (test code = 042571) SCREEN NEGATIVE Neural tube defect risk (raghavendra t code = 01458) 1:84418 Neural tube defect interpretation (test code = 29221) (NOTE) DATE OF (test code = 2660) 1990 MATERNAL WEIGHT (test code = 2657) 184 LBS INITIAL/REPEAT (test code = 399063) INITIAL FAMILY HISTORY OF NTD (test code = 774800) NO INSULIN DEP. DIABETIC (test code = 2659) NO RACE (test code = 2658) SMOKER? (test code = 793761) NO NUMBER OF GESTATIONS (test code = 44050) 1 GESTATIONAL AGE (test code = 2656) 18.7 WEEKS DETERMINED BY: (test code = 2654) US DATE OF SONOGRAM (test code = 11173) 10/19/2023 GESTATIONAL AGE AT SONO (raghavendra t code = 2653) 10.6 WEEKS ADJUST AFP M.O.M. (test code = 2661) 0.76 M.O.M. AFP (test code = 87987) 33.1 NG/ML Peter Romero AustinMATERNAL AFP FOR NTD [id number] 00:00:00* Test Item Value Reference Range Interpretation Comme nts INTERPRETATION (test code = 590887) SCREEN NEGATIVE Neural tube defect risk (raghavendra t code = 52015) 1:22260 Neural tube defect interpretation (test code = 94834) (NOTE) DATE OF (test code = 2660) 1990 MATERNAL WEIGHT (test code = 2657) 184 LBS INITIAL/REPEAT (test code = 205724) INITIAL FAMILY HISTORY OF NTD (test code = 906864) NO INSULIN DEP. DIABETIC (test code = 2659) NO RACE (test code = 2658) SMOKER? (test code = 671939) NO NUMBER OF GESTATIONS (test code = 85528) 1 GESTATIONAL AGE (test code = 2656) 18.7 WEEKS DETERMINED BY: (test code = 2654) US DATE OF SONOGRAM (test code = 89997) 10/19/2023 GESTATIONAL AGE AT SONO (raghavendra t code = 2653) 10.6 WEEKS ADJUST AFP M.O.M. (test code = 2661) 0.76 M.O.M. AFP (test code = 45544) 33.1 NG/ML Peter Romero AustinMATERNAL AFP FOR NTD [id number] 00:00:00* Test Item Value Reference Range Interpretation Comme nts INTERPRETATION (test code = 148368) SCREEN NEGATIVE Neural tube defect risk (raghavendra t code = 85877) 1:76719 Neural tube defect interpretation (test code = 17535) (NOTE) DATE OF (test code = 2660) 1990 MATERNAL WEIGHT (test code = 2657) 184 LBS INITIAL/REPEAT (test code = 591810) INITIAL FAMILY HISTORY OF NTD (test code = 688975) NO INSULIN DEP. DIABETIC (test code = 2659) NO RACE (test code = 2658) SMOKER? (test code = 426827) NO NUMBER OF GESTATIONS (test code = 58994) 1 GESTATIONAL AGE (test code = 2656) 18.7 WEEKS DETERMINED BY: (test code = 2654) US DATE OF SONOGRAM (test code = 09770) 10/19/2023 GESTATIONAL AGE AT SONO (raghavendra t code = 2653) 10.6 WEEKS ADJUST AFP M.O.M. (test code = 2661) 0.76 M.O.M. AFP (test code = 30969) 33.1 NG/ML Peter Romero RollyMATERNAL AFP FOR NTD [id number] 00:00:00* Test Item Value Reference Range Interpretation Comme nts INTERPRETATION (test code = 795098) SCREEN NEGATIVE Neural tube defect risk (raghavendra t code = 28151) 1:34286 Neural tube defect interpretation (test code = 94412) (NOTE) DATE OF (test code = 2660) 1990 MATERNAL WEIGHT (test code = 2657) 184 LBS INITIAL/REPEAT (test code = 093726) INITIAL FAMILY HISTORY OF NTD (test code = 748283) NO INSULIN DEP. DIABETIC (test code = 2659) NO RACE (test code = 2658) SMOKER? (test code = 304545) NO NUMBER OF GESTATIONS (test code = 02949) 1 GESTATIONAL AGE (test code = 2656) 18.7 WEEKS DETERMINED BY: (test code = 2654) US DATE OF SONOGRAM (test code = 56505) 10/19/2023 GESTATIONAL AGE AT SONO (raghavendra t code = 2653) 10.6 WEEKS ADJUST AFP M.O.M. (test code = 2661) 0.76 M.O.M. AFP (test code = 71435) 33.1 NG/ML Peter Romero RollyCULTBRYAN, [id number] 08:32:29SPECIMEN NUMBER: [id number] CULTURE, URINE SPECIMEN NUMBER: [id number] SPECIMEN COMMENT: URINE SOURCE: URINE REPORT STATUS: FINAL FINAL REPORT: 12/17/2023 50-100,000 CFU/ML UROGENITAL JUNAID PRESENT NO COMMON PATHOGENSCULTURE, [id number] 00:00:00* Test Item Value Reference Range Interpretation Comme nts CULTURE, URINE (test code = 14242) SPECIMEN NUMBER: [id number] Peter Ugarte [id number] 00:00:00* Test Item Value Reference Range Interpretation Comme nts CULTURE, URINE (test code = 58454) SPECIMEN NUMBER: [id number] Peter Ugarte [id number] 00:00:00* Test Item Value Reference Range Interpretation Comme nts CULTURE, URINE (test code = 33514) SPECIMEN NUMBER: [id number] Peter Ugarte [id number] 00:00:00* Test Item Value Reference Range Interpretation Comme nts CULTURE, URINE (test code = 36345) SPECIMEN NUMBER: [id number] Peter Ugarte [id number] 00:00:00* Test Item Value Reference Range Interpretation Comme nts CULTURE, URINE (test code = 59302) SPECIMEN NUMBER: [id number] Peter Ugarte [id number] 00:00:00* Test Item Value Reference Range Interpretation Comme nts CULTURE, URINE (test code = 03779) SPECIMEN NUMBER: [id number] Peter Ugarte, [id number] 00:00:00* Test Item Value Reference Range Interpretation Comme nts CULTURE, URINE (test code = 55898) SPECIMEN NUMBER: [id number] Peter Ugarte, [id number] 00:00:00* Test Item Value Reference Range Interpretation Comme nts CULTURE, URINE (test code = 43841) SPECIMEN NUMBER: [id number] Peter Ugarte, [id number] 00:00:00* Test Item Value Reference Range Interpretation Comme nts CULTURE, URINE (test code = 63545) SPECIMEN NUMBER: [id number] Peter Ugarte, [id number] 00:00:00* Test Item Value Reference Range Interpretation Comme nts CULTURE, URINE (test code = 51851) SPECIMEN NUMBER: [id number] Peter Ugarte, [id number] 00:00:00* Test Item Value Reference Range Interpretation Comme nts CULTURE, URINE (test code = 02157) SPECIMEN NUMBER: [id number] Peter Ugarte, [id number] 00:00:00* Test Item Value Reference Range Interpretation Comme nts CULTURE, URINE (test code = 70061) SPECIMEN NUMBER: [id number] Peter Ugarte, [id number] 00:00:00* Test Item Value Reference Range Interpretation Comme nts CULTURE, URINE (test code = 97881) SPECIMEN NUMBER: [id number] Peter Ugarte, [id number] 00:00:00* Test Item Value Reference Range Interpretation Comme nts CULTURE, URINE (test code = 30610) SPECIMEN NUMBER: [id number] Peter HurdLTBRYAN, [id number] 00:00:00* Test Item Value Reference Range Interpretation Comme nts CULTURE, URINE (test code = 88121) SPECIMEN NUMBER: [id number] Peter Ugarte, [id number] 00:00:00* Test Item Value Reference Range Interpretation Comme nts CULTURE, URINE (test code = 30327) SPECIMEN NUMBER: [id number] Peter Ugarte, [id number] 00:00:00* Test Item Value Reference Range Interpretation Comme nts CULTURE, URINE (test code = 88164) SPECIMEN NUMBER: [id number] Peter Ugarte [id number] 00:00:00* Test Item Value Reference Range Interpretation Comme nts CULTURE, URINE (test code = 57781) SPECIMEN NUMBER: [id number] Peter LoftonNIPT W/ [id number] 00:00:00* Test Item Value Reference Range Interpretation Comme nts FINAL NIPS RESULT (test code = 96660) Low Risk PREDICTED SEX (test code = 15777) Male FRACTION (EST.) (test code = 69080) 10 % TRISOMY 21 (T21) (test code = 26796) Low probability T21 PRE-TEST PROB (test code = 67071) 1/351 T21 POST-TEST PROB (test cod e = 72135) <1/20,000 TRISOMY 18 (T18) (test code = 732525) Low probability T18 PRE-TEST PROB (test code = 166164) 1/,227 T18 POST-TEST PROB (test cod e = 066477) <1/20,000 TRISOMY 13 (T13) (test code = 196740) Low probability T13 PRE-TEST PROB (test code = 125937) T13 POST-TEST PROB (test cod e = 571640) <1/20,000 INTERPRETATION (test code = 073576) See Note IMPORTANT INFORMATION (test code = 247556) See Note RECOMMENDATION (test code = 161432) See Note GESTATION AT [place] (W) (test code = 480814) 12 weeks GESTATION AT [place] (D) (test code = 804226) 6 days DELIVERY DATE (EST.) (test code = 920090) 05/08/2024 PROVIDED HISTORY INFORMATION (test code = 470409) NUMBER OF FETUSES (test code = 577339) Prasad MATERNAL WEIGHT (test code = 225114) 174 LBS DATING METHOD (test code = 298499) LMP ESTIMATED DATE OF DELIVERY (GENET) (test code = 755403) 08/02/2023 IVF (test code = 404966) NO PATIENT CONSENT (test code = 714031) YES SEX (test code = 754543) See Note PDFE (test code = PDFReport) PDF [facility]ftonGILA REGIONAL MEDICAL CENTERMani W/ [id number] 00:00:00* Test Item Value Reference Range Interpretation Comme nts FINAL NIPS RESULT (test code = 02965) Low Risk PREDICTED SEX (test code = 69691) Male FRACTION (EST.) (test code = 85629) 10 % TRISOMY 21 (T21) (test code = 91146) Low probability T21 PRE-TEST PROB (test code = 60601) 1/351 T21 POST-TEST PROB (test cod e = 28895) <1/20,000 TRISOMY 18 (T18) (test code = 517882) Low probability T18 PRE-TEST PROB (test code = 067233) T18 POST-TEST PROB (test cod e = 061041) <1/20,000 TRISOMY 13 (T13) (test code = 631834) Low probability T13 PRE-TEST PROB (test code = 735453) T13 POST-TEST PROB (test cod e = 860600) <1/20,000 INTERPRETATION (test code = 350370) See Note IMPORTANT INFORMATION (test code = 475304) See Note RECOMMENDATION (test code = 496697) See Note GESTATION AT [place] (W) (test code = 677268) 12 weeks GESTATION AT [place] (D) (test code = 516806) 6 days DELIVERY DATE (EST.) (test code = 518622) 05/08/2024 PROVIDED HISTORY INFORMATION (test code = 702840) NUMBER OF FETUSES (test code = 117421) Prasad MATERNAL WEIGHT (test code = 776833) 174 LBS DATING METHOD (test code = 991104) LMP ESTIMATED DATE OF DELIVERY (GENET) (test code = 308111) 08/02/2023 IVF (test code = 005301) NO PATIENT CONSENT (test code = 233419) YES SEX (test code = 802943) See Note PDFE (test code = PDFReport) PDF [facility]onGILA [facility] CENTERMani W/ [id number] 00:00:00* Test Item Value Reference Range Interpretation Comme nts FINAL NIPS RESULT (test code = 86178) Low Risk PREDICTED SEX (test code = 58607) Male FRACTION (EST.) (test code = 77852) 10 % TRISOMY 21 (T21) (test code = 01069) Low probability T21 PRE-TEST PROB (test code = 97468) 1/351 T21 POST-TEST PROB (test cod e = 42034) <1/20,000 TRISOMY 18 (T18) (test code = 624193) Low probability T18 PRE-TEST PROB (test code = 385086) 1/1,227 T18 POST-TEST PROB (test cod e = 678541) <1/20,000 TRISOMY 13 (T13) (test code = 007156) Low probability T13 PRE-TEST PROB (test code = 372595) 1/3,236 T13 POST-TEST PROB (test cod e = 712077) <1/20,000 INTERPRETATION (test code = 169414) See Note IMPORTANT INFORMATION (test code = 720024) See Note RECOMMENDATION (test code = 824904) See Note GESTATION AT [place] (W) (test code = 419045) 12 weeks GESTATION AT [place] (D) (test code = 575134) 6 days DELIVERY DATE (EST.) (test code = 330421) 05/08/2024 PROVIDED HISTORY INFORMATION (test code = 589512) NUMBER OF FETUSES (test code = 855301) Prasad MATERNAL WEIGHT (test code = 512076) 174 LBS DATING METHOD (test code = 553067) LMP ESTIMATED DATE OF DELIVERY (GENET) (test code = 864208) 08/02/2023 IVF (test code = 304917) NO PATIENT CONSENT (test code = 610841) YES SEX (test code = 078607) See Note PDFE (test code = PDFReport) PDF Peter Veloz W/ [id number] 00:00:00* Test Item Value Reference Range Interpretation Comme nts FINAL NIPS RESULT (test code = 65953) Low Risk PREDICTED SEX (test code = 47003) Male FRACTION (EST.) (test code = 52629) 10 % TRISOMY 21 (T21) (test code = 35329) Low probability T21 PRE-TEST PROB (test code = 98036) 1/351 T21 POST-TEST PROB (test cod e = 77794) <1/20,000 TRISOMY 18 (T18) (test code = 291958) Low probability T18 PRE-TEST PROB (test code = 271309) 1/1,227 T18 POST-TEST PROB (test cod e = 235017) <1/20,000 TRISOMY 13 (T13) (test code = 361382) Low probability T13 PRE-TEST PROB (test code = 108297) 1/3,236 T13 POST-TEST PROB (test cod e = 868899) <1/20,000 INTERPRETATION (test code = 764790) See Note IMPORTANT INFORMATION (test code = 330266) See Note RECOMMENDATION (test code = 821814) See Note GESTATION AT [place] (W) (test code = 540143) 12 weeks GESTATION AT [place] (D) (test code = 918288) 6 days DELIVERY DATE (EST.) (test code = 428740) 05/08/2024 PROVIDED HISTORY INFORMATION (test code = 125044) NUMBER OF FETUSES (test code = 231712) Prasad MATERNAL WEIGHT (test code = 043245) 174 LBS DATING METHOD (test code = 999907) LMP ESTIMATED DATE OF DELIVERY (GENET) (test code = 920120) 08/02/2023 IVF (test code = 337082) NO PATIENT CONSENT (test code = 571731) YES SEX (test code = 555462) See Note PDFE (test code = PDFReport) PDF Peter Veloz W/ [id number] 00:00:00* Test Item Value Reference Range Interpretation Comme nts FINAL NIPS RESULT (test code = 85227) Low Risk PREDICTED SEX (test code = 63965) Male FRACTION (EST.) (test code = 20225) 10 % TRISOMY 21 (T21) (test code = 02680) Low probability T21 PRE-TEST PROB (test code = 73418) 351 T21 POST-TEST PROB (test cod e = 35472) <1/20,000 TRISOMY 18 (T18) (test code = 980786) Low probability T18 PRE-TEST PROB (test code = 509491) 08/28,227 T18 POST-TEST PROB (test cod e = 186477) <1/20,000 TRISOMY 13 (T13) (test code = 531590) Low probability T13 PRE-TEST PROB (test code = 174861) 1,236 T13 POST-TEST PROB (test cod e = 051646) <1/20,000 INTERPRETATION (test code = 767461) See Note IMPORTANT INFORMATION (test code = 627219) See Note RECOMMENDATION (test code = 002981) See Note GESTATION AT [place] (W) (test code = 194141) 12 weeks GESTATION AT [place] (D) (test code = 803158) 6 days DELIVERY DATE (EST.) (test code = 451673) 05/08/2024 PROVIDED HISTORY INFORMATION (test code = 303780) NUMBER OF FETUSES (test code = 828895) Prasad MATERNAL WEIGHT (test code = 230121) 174 LBS DATING METHOD (test code = 682050) LMP ESTIMATED DATE OF DELIVERY (GENET) (test code = 906161) 08/02/2023 IVF (test code = 824300) NO PATIENT CONSENT (test code = 892999) YES SEX (test code = 979946) See Note PDFE (test code = PDFReport) PDF Peter Veloz W/ [id number] 00:00:00* Test Item Value Reference Range Interpretation Comme nts FINAL NIPS RESULT (test code = 67637) Low Risk PREDICTED SEX (test code = 38358) Male FRACTION (EST.) (test code = 40321) 10 % TRISOMY 21 (T21) (test code = 06520) Low probability T21 PRE-TEST PROB (test code = 92781) 1/351 T21 POST-TEST PROB (test cod e = 15639) <1/20,000 TRISOMY 18 (T18) (test code = 274372) Low probability T18 PRE-TEST PROB (test code = 579958) 08/28,227 T18 POST-TEST PROB (test cod e = 863030) <1/20,000 TRISOMY 13 (T13) (test code = 989212) Low probability T13 PRE-TEST PROB (test code = 552919) 08/30,236 T13 POST-TEST PROB (test cod e = 522748) <1/20,000 INTERPRETATION (test code = 145027) See Note IMPORTANT INFORMATION (test code = 057818) See Note RECOMMENDATION (test code = 099685) See Note GESTATION AT [place] (W) (test code = 523950) 12 weeks GESTATION AT [place] (D) (test code = 804303) 6 days DELIVERY DATE (EST.) (test code = 452992) 05/08/2024 PROVIDED HISTORY INFORMATION (test code = 592967) NUMBER OF FETUSES (test code = 648228) Prasad MATERNAL WEIGHT (test code = 548519) 174 LBS DATING METHOD (test code = 987015) LMP ESTIMATED DATE OF DELIVERY (GENET) (test code = 529101) 08/02/2023 IVF (test code = 944050) NO PATIENT CONSENT (test code = 996833) YES SEX (test code = 574287) See Note PDFE (test code = PDFReport) PDF Peter Veloz W/ [id number] 00:00:00* Test Item Value Reference Range Interpretation Comme nts FINAL NIPS RESULT (test code = 21397) Low Risk PREDICTED SEX (test code = 77521) Male FRACTION (EST.) (test code = 08277) 10 % TRISOMY 21 (T21) (test code = 73063) Low probability T21 PRE-TEST PROB (test code = 31176) T21 POST-TEST PROB (test cod e = 06296) <1/20,000 TRISOMY 18 (T18) (test code = 674133) Low probability T18 PRE-TEST PROB (test code = 873207) T18 POST-TEST PROB (test cod e = 266328) <1/20,000 TRISOMY 13 (T13) (test code = 013753) Low probability T13 PRE-TEST PROB (test code = 491337) T13 POST-TEST PROB (test cod e = 796356) <1/20,000 INTERPRETATION (test code = 954578) See Note IMPORTANT INFORMATION (test code = 203051) See Note RECOMMENDATION (test code = 771339) See Note GESTATION AT [place] (W) (test code = 780710) 12 weeks GESTATION AT [place] (D) (test code = 898737) 6 days DELIVERY DATE (EST.) (test code = 382155) 05/08/2024 PROVIDED HISTORY INFORMATION (test code = 123603) NUMBER OF FETUSES (test code = 304435) Prasad MATERNAL WEIGHT (test code = 715141) 174 LBS DATING METHOD (test code = 775846) LMP ESTIMATED DATE OF DELIVERY (GNEET) (test code = 944745) 08/02/2023 IVF (test code = 885709) NO PATIENT CONSENT (test code = 461471) YES SEX (test code = 493667) See Note PDFE (test code = PDFReport) PDF Peter Romero Roselia W/ [id number] 00:00:00* Test Item Value Reference Range Interpretation Comme nts FINAL NIPS RESULT (test code = 65848) Low Risk PREDICTED SEX (test code = 74896) Male FRACTION (EST.) (test code = 96538) 10 % TRISOMY 21 (T21) (test code = 82611) Low probability T21 PRE-TEST PROB (test code = 64359) T21 POST-TEST PROB (test cod e = 75721) <1/20,000 TRISOMY 18 (T18) (test code = 837839) Low probability T18 PRE-TEST PROB (test code = 580576) T18 POST-TEST PROB (test cod e = 588477) <1/20,000 TRISOMY 13 (T13) (test code = 423953) Low probability T13 PRE-TEST PROB (test code = 041810) 236 T13 POST-TEST PROB (test cod e = 704652) <1/20,000 INTERPRETATION (test code = 488851) See Note IMPORTANT INFORMATION (test code = 439376) See Note RECOMMENDATION (test code = 071283) See Note GESTATION AT [place] (W) (test code = 372358) 12 weeks GESTATION AT [place] (D) (test code = 854858) 6 days DELIVERY DATE (EST.) (test code = 807463) 05/08/2024 PROVIDED HISTORY INFORMATION (test code = 463734) NUMBER OF FETUSES (test code = 389294) Prasad MATERNAL WEIGHT (test code = 584285) 174 LBS DATING METHOD (test code = 420318) LMP ESTIMATED DATE OF DELIVERY (GENET) (test code = 711724) 08/02/2023 IVF (test code = 124992) NO PATIENT CONSENT (test code = 712136) YES SEX (test code = 402637) See Note PDFE (test code = PDFReport) PDF Peter Veloz W/ [id number] 00:00:00* Test Item Value Reference Range Interpretation Comme nts FINAL NIPS RESULT (test code = 32192) Low Risk PREDICTED SEX (test code = 92091) Male FRACTION (EST.) (test code = 74184) 10 % TRISOMY 21 (T21) (test code = 82550) Low probability T21 PRE-TEST PROB (test code = 45733) 351 T21 POST-TEST PROB (test cod e = 84050) <1/20,000 TRISOMY 18 (T18) (test code = 226918) Low probability T18 PRE-TEST PROB (test code = 140106) T18 POST-TEST PROB (test cod e = 009559) <1/20,000 TRISOMY 13 (T13) (test code = 049759) Low probability T13 PRE-TEST PROB (test code = 455451) T13 POST-TEST PROB (test cod e = 961949) <1/20,000 INTERPRETATION (test code = 608829) See Note IMPORTANT INFORMATION (test code = 938195) See Note RECOMMENDATION (test code = 045622) See Note GESTATION AT [place] (W) (test code = 050171) 12 weeks GESTATION AT [place] (D) (test code = 841054) 6 days DELIVERY DATE (EST.) (test code = 653592) 05/08/2024 PROVIDED HISTORY INFORMATION (test code = 783978) NUMBER OF FETUSES (test code = 077644) Prasad MATERNAL WEIGHT (test code = 730908) 174 LBS DATING METHOD (test code = 983940) LMP ESTIMATED DATE OF DELIVERY (GENET) (test code = 568340) 08/02/2023 IVF (test code = 593880) NO PATIENT CONSENT (test code = 449089) YES SEX (test code = 764630) See Note PDFE (test code = PDFReport) PDF Peter Veloz W/ [id number] 00:00:00* Test Item Value Reference Range Interpretation Comme nts FINAL NIPS RESULT (test code = 76823) Low Risk PREDICTED SEX (test code = 50828) Male FRACTION (EST.) (test code = 81674) 10 % TRISOMY 21 (T21) (test code = 13237) Low probability T21 PRE-TEST PROB (test code = 54789) 1/351 T21 POST-TEST PROB (test cod e = 80487) <1/20,000 TRISOMY 18 (T18) (test code = 225001) Low probability T18 PRE-TEST PROB (test code = 596646) T18 POST-TEST PROB (test cod e = 366769) <1/20,000 TRISOMY 13 (T13) (test code = 292050) Low probability T13 PRE-TEST PROB (test code = 928504) T13 POST-TEST PROB (test cod e = 671574) <1/20,000 INTERPRETATION (test code = 386774) See Note IMPORTANT INFORMATION (test code = 994332) See Note RECOMMENDATION (test code = 030431) See Note GESTATION AT [facility] (W) (test code = 555434) 12 weeks GESTATION AT [place] (D) (test code = 213234) 6 days DELIVERY DATE (EST.) (test code = 942373) 05/08/2024 PROVIDED HISTORY INFORMATION (test code = 597465) NUMBER OF FETUSES (test code = 570787) Prasad MATERNAL WEIGHT (test code = 086035) 174 LBS DATING METHOD (test code = 259957) LMP ESTIMATED DATE OF DELIVERY (GENET) (test code = 645947) 08/02/2023 IVF (test code = 670966) NO PATIENT CONSENT (test code = 245771) YES SEX (test code = 131023) See Note PDFE (test code = PDFReport) PDF Peter Veloz W/ [id number] 00:00:00* Test Item Value Reference Range Interpretation Comme nts FINAL NIPS RESULT (test code = 93175) Low Risk PREDICTED SEX (test code = 88348) Male FRACTION (EST.) (test code = 74373) 10 % TRISOMY 21 (T21) (test code = 15430) Low probability T21 PRE-TEST PROB (test code = 35091) 1/351 T21 POST-TEST PROB (test cod e = 12916) <1/20,000 TRISOMY 18 (T18) (test code = 368422) Low probability T18 PRE-TEST PROB (test code = 653020) 1/1,227 T18 POST-TEST PROB (test cod e = 137940) <1/20,000 TRISOMY 13 (T13) (test code = 748507) Low probability T13 PRE-TEST PROB (test code = 347039) 1/3,236 T13 POST-TEST PROB (test cod e = 008675) <1/20,000 INTERPRETATION (test code = 770926) See Note IMPORTANT INFORMATION (test code = 315477) See Note RECOMMENDATION (test code = 168436) See Note GESTATION AT [place] (W) (test code = 952003) 12 weeks GESTATION AT [place] (D) (test code = 176618) 6 days DELIVERY DATE (EST.) (test code = 749422) 05/08/2024 PROVIDED HISTORY INFORMATION (test code = 600452) NUMBER OF FETUSES (test code = 298321) Prasad MATERNAL WEIGHT (test code = 445462) 174 LBS DATING METHOD (test code = 986472) LMP ESTIMATED DATE OF DELIVERY (GENET) (test code = 745240) 08/02/2023 IVF (test code = 545198) NO PATIENT CONSENT (test code = 708738) YES SEX (test code = 067463) See Note PDFE (test code = PDFReport) PDF Peter Veloz W/ [id number] 00:00:00* Test Item Value Reference Range Interpretation Comme nts FINAL NIPS RESULT (test code = 46484) Low Risk PREDICTED SEX (test code = 56479) Male FRACTION (EST.) (test code = 90712) 10 % TRISOMY 21 (T21) (test code = 36780) Low probability T21 PRE-TEST PROB (test code = 94964) 1/351 T21 POST-TEST PROB (test cod e = 08041) <1/20,000 TRISOMY 18 (T18) (test code = 828137) Low probability T18 PRE-TEST PROB (test code = 857364) 1/1,227 T18 POST-TEST PROB (test cod e = 834390) <1/20,000 TRISOMY 13 (T13) (test code = 882279) Low probability T13 PRE-TEST PROB (test code = 850462) 1/3,236 T13 POST-TEST PROB (test cod e = 474633) <1/20,000 INTERPRETATION (test code = 628852) See Note IMPORTANT INFORMATION (test code = 913770) See Note RECOMMENDATION (test code = 712983) See Note GESTATION AT [place] (W) (test code = 238087) 12 weeks GESTATION AT [place] (D) (test code = 954774) 6 days DELIVERY DATE (EST.) (test code = 211633) 05/08/2024 PROVIDED HISTORY INFORMATION (test code = 681756) NUMBER OF FETUSES (test code = 561401) Prasad MATERNAL WEIGHT (test code = 945149) 174 LBS DATING METHOD (test code = 160461) LMP ESTIMATED DATE OF DELIVERY (GENET) (test code = 525415) 08/02/2023 IVF (test code = 466706) NO PATIENT CONSENT (test code = 110378) YES SEX (test code = 336019) See Note PDFE (test code = PDFReport) PDF Peter Veloz W/ [id number] 00:00:00* Test Item Value Reference Range Interpretation Comme nts FINAL NIPS RESULT (test code = 59176) Low Risk PREDICTED SEX (test code = 15405) Male FRACTION (EST.) (test code = 87850) 10 % TRISOMY 21 (T21) (test code = 38295) Low probability T21 PRE-TEST PROB (test code = 35331) 351 T21 POST-TEST PROB (test cod e = 65433) <1/20,000 TRISOMY 18 (T18) (test code = 014541) Low probability T18 PRE-TEST PROB (test code = 309050) 08/28,227 T18 POST-TEST PROB (test cod e = 635360) <1/20,000 TRISOMY 13 (T13) (test code = 933606) Low probability T13 PRE-TEST PROB (test code = 695364) 08/30,236 T13 POST-TEST PROB (test cod e = 934381) <1/20,000 INTERPRETATION (test code = 653502) See Note IMPORTANT INFORMATION (test code = 893038) See Note RECOMMENDATION (test code = 385368) See Note GESTATION AT [place] (W) (test code = 387985) 12 weeks GESTATION AT [place] (D) (test code = 341659) 6 days DELIVERY DATE (EST.) (test code = 661573) 05/08/2024 PROVIDED HISTORY INFORMATION (test code = 550536) NUMBER OF FETUSES (test code = 149855) Prasad MATERNAL WEIGHT (test code = 164764) 174 LBS DATING METHOD (test code = 796355) LMP ESTIMATED DATE OF DELIVERY (GENET) (test code = 462484) 08/02/2023 IVF (test code = 682205) NO PATIENT CONSENT (test code = 495753) YES SEX (test code = 531962) See Note PDFE (test code = PDFReport) PDF Peter Veloz W/ [id number] 00:00:00* Test Item Value Reference Range Interpretation Comme nts FINAL NIPS RESULT (test code = 96081) Low Risk PREDICTED SEX (test code = 45215) Male FRACTION (EST.) (test code = 91285) 10 % TRISOMY 21 (T21) (test code = 77097) Low probability T21 PRE-TEST PROB (test code = 29813) 351 T21 POST-TEST PROB (test cod e = 92480) <1/20,000 TRISOMY 18 (T18) (test code = 772422) Low probability T18 PRE-TEST PROB (test code = 044041) 08/28,227 T18 POST-TEST PROB (test cod e = 435395) <1/20,000 TRISOMY 13 (T13) (test code = 986684) Low probability T13 PRE-TEST PROB (test code = 166993) 236 T13 POST-TEST PROB (test cod e = 369346) <1/20,000 INTERPRETATION (test code = 211397) See Note IMPORTANT INFORMATION (test code = 054171) See Note RECOMMENDATION (test code = 139791) See Note GESTATION AT [place] (W) (test code = 928807) 12 weeks GESTATION AT [place] (D) (test code = 346631) 6 days DELIVERY DATE (EST.) (test code = 911290) 05/08/2024 PROVIDED HISTORY INFORMATION (test code = 011264) NUMBER OF FETUSES (test code = 068396) Prasad MATERNAL WEIGHT (test code = 045837) 174 LBS DATING METHOD (test code = 025299) LMP ESTIMATED DATE OF DELIVERY (GENET) (test code = 237581) 08/02/2023 IVF (test code = 687334) NO PATIENT CONSENT (test code = 477899) YES SEX (test code = 943925) See Note PDFE (test code = PDFReport) PDF Peter Romero Roselia W/ [id number] 00:00:00* Test Item Value Reference Range Interpretation Comme nts FINAL NIPS RESULT (test code = 03375) Low Risk PREDICTED SEX (test code = 28115) Male FRACTION (EST.) (test code = 27596) 10 % TRISOMY 21 (T21) (test code = 55105) Low probability T21 PRE-TEST PROB (test code = 67423) T21 POST-TEST PROB (test cod e = 02439) <1/20,000 TRISOMY 18 (T18) (test code = 693533) Low probability T18 PRE-TEST PROB (test code = 175874) T18 POST-TEST PROB (test cod e = 767787) <1/20,000 TRISOMY 13 (T13) (test code = 222985) Low probability T13 PRE-TEST PROB (test code = 705739) T13 POST-TEST PROB (test cod e = 414273) <1/20,000 INTERPRETATION (test code = 491206) See Note IMPORTANT INFORMATION (test code = 588646) See Note RECOMMENDATION (test code = 207433) See Note GESTATION AT [place] (W) (test code = 469827) 12 weeks GESTATION AT [place] (D) (test code = 340402) 6 days DELIVERY DATE (EST.) (test code = 522748) 05/08/2024 PROVIDED HISTORY INFORMATION (test code = 894392) NUMBER OF FETUSES (test code = 289549) Prasad MATERNAL WEIGHT (test code = 725538) 174 LBS DATING METHOD (test code = 254648) LMP ESTIMATED DATE OF DELIVERY (GENET) (test code = 429968) 08/02/2023 IVF (test code = 991861) NO PATIENT CONSENT (test code = 801976) YES SEX (test code = 627156) See Note PDFE (test code = PDFReport) PDF Peter Nick oRselia W/ [id number] 00:00:00* Test Item Value Reference Range Interpretation Comme nts FINAL NIPS RESULT (test code = 36141) Low Risk PREDICTED SEX (test code = 33350) Male FRACTION (EST.) (test code = 73706) 10 % TRISOMY 21 (T21) (test code = 36633) Low probability T21 PRE-TEST PROB (test code = 58914) T21 POST-TEST PROB (test cod e = 76719) <1/20,000 TRISOMY 18 (T18) (test code = 019992) Low probability T18 PRE-TEST PROB (test code = 462911) T18 POST-TEST PROB (test cod e = 015348) <1/20,000 TRISOMY 13 (T13) (test code = 504442) Low probability T13 PRE-TEST PROB (test code = 966851) T13 POST-TEST PROB (test cod e = 851312) <1/20,000 INTERPRETATION (test code = 033182) See Note IMPORTANT INFORMATION (test code = 582152) See Note RECOMMENDATION (test code = 693491) See Note GESTATION AT [place] (W) (test code = 617682) 12 weeks GESTATION AT [place] (D) (test code = 996315) 6 days DELIVERY DATE (EST.) (test code = 940972) 05/08/2024 PROVIDED HISTORY INFORMATION (test code = 406307) NUMBER OF FETUSES (test code = 380247) Prasad MATERNAL WEIGHT (test code = 598888) 174 LBS DATING METHOD (test code = 792629) LMP ESTIMATED DATE OF DELIVERY (GENET) (test code = 534307) 08/02/2023 IVF (test code = 118661) NO PATIENT CONSENT (test code = 792504) YES SEX (test code = 206817) See Note PDFE (test code = PDFReport) PDF Peter LoftonTAINA W/ [id number] 00:00:00* Test Item Value Reference Range Interpretation Comme nts FINAL NIPS RESULT (test code = 10106) Low Risk PREDICTED SEX (test code = 71189) Male FRACTION (EST.) (test code = 94107) 10 % TRISOMY 21 (T21) (test code = 65590) Low probability T21 PRE-TEST PROB (test code = 26497) 1/351 T21 POST-TEST PROB (test cod e = 87800) <1/20,000 TRISOMY 18 (T18) (test code = 937562) Low probability T18 PRE-TEST PROB (test code = 273421) T18 POST-TEST PROB (test cod e = 926582) <1/20,000 TRISOMY 13 (T13) (test code = 159599) Low probability T13 PRE-TEST PROB (test code = 275798) T13 POST-TEST PROB (test cod e = 869257) <1/20,000 INTERPRETATION (test code = 541691) See Note IMPORTANT INFORMATION (test code = 016831) See Note RECOMMENDATION (test code = 362969) See Note GESTATION AT [place] (W) (test code = 316911) 12 weeks GESTATION AT [place] (D) (test code = 041712) 6 days DELIVERY DATE (EST.) (test code = 544936) 05/08/2024 PROVIDED HISTORY INFORMATION (test code = 598102) NUMBER OF FETUSES (test code = 713781) Prasad MATERNAL WEIGHT (test code = 840148) 174 LBS DATING METHOD (test code = 857773) LMP ESTIMATED DATE OF DELIVERY (GENET) (test code = 721906) 08/02/2023 IVF (test code = 130059) NO PATIENT CONSENT (test code = 368792) YES SEX (test code = 577778) See Note PDFE (test code = PDFReport) PDF [facility]onGILA [facility] MED[facility] CENTERMani W/ [id number] 00:00:00* Test Item Value Reference Range Interpretation Comme nts FINAL NIPS RESULT (test code = 01345) Low Risk PREDICTED SEX (test code = 30332) Male FRACTION (EST.) (test code = 26434) 10 % TRISOMY 21 (T21) (test code = 67110) Low probability T21 PRE-TEST PROB (test code = 85440) 1/351 T21 POST-TEST PROB (test cod e = 90030) <1/20,000 TRISOMY 18 (T18) (test code = 739509) Low probability T18 PRE-TEST PROB (test code = 639621) T18 POST-TEST PROB (test cod e = 340657) <1/20,000 TRISOMY 13 (T13) (test code = 209237) Low probability T13 PRE-TEST PROB (test code = 958319) T13 POST-TEST PROB (test cod e = 275164) <1/20,000 INTERPRETATION (test code = 123545) See Note IMPORTANT INFORMATION (test code = 832678) See Note RECOMMENDATION (test code = 294752) See Note GESTATION AT [place] (W) (test code = 713645) 12 weeks GESTATION AT [place] (D) (test code = 707568) 6 days DELIVERY DATE (EST.) (test code = 416394) 05/08/2024 PROVIDED HISTORY INFORMATION (test code = 818080) NUMBER OF FETUSES (test code = 508349) Prasad MATERNAL WEIGHT (test code = 606340) 174 LBS DATING METHOD (test code = 732074) LMP ESTIMATED DATE OF DELIVERY (GENET) (test code = 935493) 08/02/2023 IVF (test code = 676056) NO PATIENT CONSENT (test code = 559261) YES SEX (test code = 940393) See Note PDFE (test code = PDFReport) PDF Peter Veloz W/ [id number] 00:00:00* Test Item Value Reference Range Interpretation Comme nts FINAL NIPS RESULT (test code = 30860) Low Risk PREDICTED SEX (test code = 14539) Male FRACTION (EST.) (test code = 74034) 10 % TRISOMY 21 (T21) (test code = 73575) Low probability T21 PRE-TEST PROB (test code = 04697) 1/351 T21 POST-TEST PROB (test cod e = 23193) <1/20,000 TRISOMY 18 (T18) (test code = 682704) Low probability T18 PRE-TEST PROB (test code = 136424) 1/1,227 T18 POST-TEST PROB (test cod e = 638639) <1/20,000 TRISOMY 13 (T13) (test code = 400871) Low probability T13 PRE-TEST PROB (test code = 236592) 1/3,236 T13 POST-TEST PROB (test cod e = 921621) <1/20,000 INTERPRETATION (test code = 854128) See Note IMPORTANT INFORMATION (test code = 589684) See Note RECOMMENDATION (test code = 711905) See Note GESTATION AT [place] (W) (test code = 766029) 12 weeks GESTATION AT [place] (D) (test code = 976842) 6 days DELIVERY DATE (EST.) (test code = 697096) 05/08/2024 PROVIDED HISTORY INFORMATION (test code = 284451) NUMBER OF FETUSES (test code = 355134) Prasad MATERNAL WEIGHT (test code = 973022) 174 LBS DATING METHOD (test code = 373775) LMP ESTIMATED DATE OF DELIVERY (GENET) (test code = 912557) 08/02/2023 IVF (test code = 255477) NO PATIENT CONSENT (test code = 289736) YES SEX (test code = 423782) See Note PDFE (test code = PDFReport) [...] HR (test code = ) 106 MG/DL Pteer F AustinGLUCOSE TOLERANCE GESTATIONAL, 100 GM LOAD, DIAG., (FASTING,1HR 2023-11-07 00:00:00* Test Item Value Reference Range Interpretation Comme nts GLUCOSE, FASTING (test code = ) 85 MG/DL GLUCOSE, 1 HR (test code = ) 165 MG/DL GLUCOSE, 2 HR (test code = ) 130 MG/DL GLUCOSE, 3 HR (test code = ) 106 MG/DL Peter Ugarte [id number] 00:00:00* Test Item Value Reference Range Interpretation Comme nts CULTURE, URINE (test code = 16460) SPECIMEN NUMBER: [id number] MACARIO [id number] 00:00:00* Test Item Value Reference Range Interpretation Comme nts CULTURE, URINE (test code = 74443) SPECIMEN NUMBER: [id number] Peter Ugarte, [id number] 00:00:00* Test Item Value Reference Range Interpretation Comme nts CULTURE, URINE (test code = 93786) SPECIMEN NUMBER: [id number] Peter Ugarte [id number] 00:00:00* Test Item Value Reference Range Interpretation Comme nts CULTURE, URINE (test code = 09884) SPECIMEN NUMBER: [id number] Peter Ugarte [id number] 00:00:00* Test Item Value Reference Range Interpretation Comme nts CULTURE, URINE (test code = 68070) SPECIMEN NUMBER: [id number] Peter Ugarte, [id number] 00:00:00* Test Item Value Reference Range Interpretation Comme nts CULTURE, URINE (test code = 54447) SPECIMEN NUMBER: [id number] Peter Ugarte [id number] 00:00:00* Test Item Value Reference Range Interpretation Comme nts CULTURE, URINE (test code = 57162) SPECIMEN NUMBER: [id number] Peter Ugarte, [id number] 00:00:00* Test Item Value Reference Range Interpretation Comme nts CULTURE, URINE (test code = 20069) SPECIMEN NUMBER: [id number] Peter Ugarte, [id number] 00:00:00* Test Item Value Reference Range Interpretation Comme nts CULTURE, URINE (test code = 61410) SPECIMEN NUMBER: [id number] Peter Ugarte, [id number] 00:00:00* Test Item Value Reference Range Interpretation Comme nts CULTURE, URINE (test code = 67215) SPECIMEN NUMBER: [id number] Peter Ugarte, [id number] 00:00:00* Test Item Value Reference Range Interpretation Comme nts CULTURE, URINE (test code = 83063) SPECIMEN NUMBER: [id number] Peter Ugarte [id number] 00:00:00* Test Item Value Reference Range Interpretation Comme nts CULTURE, URINE (test code = 69213) SPECIMEN NUMBER: [id number] Peter Ugarte [id number] 00:00:00* Test Item Value Reference Range Interpretation Comme nts CULTURE, URINE (test code = 78660) SPECIMEN NUMBER: [id number] ePter Ugarte [id number] 00:00:00* Test Item Value Reference Range Interpretation Comme nts CULTURE, URINE (test code = 32007) SPECIMEN NUMBER: [id number] Peter Ugarte [id number] 00:00:00* Test Item Value Reference Range Interpretation Comme nts CULTURE, URINE (test code = 68720) SPECIMEN NUMBER: [id number] Peter Ugarte, [id number] 00:00:00* Test Item Value Reference Range Interpretation Comme nts CULTURE, URINE (test code = 48227) SPECIMEN NUMBER: [id number] Peter Ugarte, [id number] 00:00:00* Test Item Value Reference Range Interpretation Comme nts CULTURE, URINE (test code = 82118) SPECIMEN NUMBER: [id number] Peter Ugarte, [id number] 00:00:00* Test Item Value Reference Range Interpretation Comme nts CULTURE, URINE (test code = 99522) SPECIMEN NUMBER: [id number] Peter HurdLTBRYAN, [id number] 00:00:00* Test Item Value Reference Range Interpretation Comme nts CULTURE, URINE (test code = 25965) SPECIMEN NUMBER: [id number] Peter LoftonGLUCOSE, 1 HR, GESTATIONAL SCREEN, 50 GM [id number] 00:00:00 * Test Item Value Reference Range Interpretation Comme nts GLUCOSE 1 HR POST 50 GM (raghavendra t code = 2005) 152 MG/DL Peter F AustinGLUCOSE, 1 HR, GESTATIONAL SCREEN, 50 GM [id number] 00:00:00 * Test Item Value Reference Range Interpretation Comme nts GLUCOSE 1 HR POST 50 GM (raghavendra t code = 2005) 152 MG/DL Peter F AustinGLUCOSE, 1 HR, GESTATIONAL SCREEN, 50 GM [id number] 00:00:00 * Test Item Value Reference Range Interpretation Comme nts GLUCOSE 1 HR POST 50 GM (raghavendra t code = 2005) 152 MG/DL Peter F AustinGLUCOSE, 1 HR, GESTATIONAL SCREEN, 50 GM [id number] 00:00:00 * Test Item Value Reference Range Interpretation Comme nts GLUCOSE 1 HR POST 50 GM (raghavendra t code = 2005) 152 MG/DL Peter F AustinGLUCOSE, 1 HR, GESTATIONAL SCREEN, 50 GM [id number] 00:00:00 * Test Item Value Reference Range Interpretation Comme nts GLUCOSE 1 HR POST 50 GM (raghavendra t code = 2005) 152 MG/DL Peter F AustinGLUCOSE, 1 HR, GESTATIONAL SCREEN, 50 GM [id number] 00:00:00 * Test Item Value Reference Range Interpretation Comme nts GLUCOSE 1 HR POST 50 GM (raghavendra t code = 2005) 152 MG/DL Peter F AustinGLUCOSE, 1 HR, GESTATIONAL SCREEN, 50 GM [id number] 00:00:00 * Test Item Value Reference Range Interpretation Comme nts GLUCOSE 1 HR POST 50 GM (raghavendra t code = 2005) 152 MG/DL Peter F AustinGLUCOSE, 1 HR, GESTATIONAL SCREEN, 50 GM [id number] 00:00:00 * Test Item Value Reference Range Interpretation Comme nts GLUCOSE 1 HR POST 50 GM (raghavendra t code = 2005) 152 MG/DL Peter F AustinGLUCOSE, 1 HR, GESTATIONAL SCREEN, 50 GM [id number] 00:00:00 * Test Item Value Reference Range Interpretation Comme nts GLUCOSE 1 HR POST 50 GM (raghavendra t code = 2005) 152 MG/DL Peter F AustinGLUCOSE, 1 HR, GESTATIONAL SCREEN, 50 GM [id number] 00:00:00 * Test Item Value Reference Range Interpretation Comme nts GLUCOSE 1 HR POST 50 GM (raghavendra t code = 2005) 152 MG/DL Peter F AustinGLUCOSE, 1 HR, GESTATIONAL SCREEN, 50 GM [id number] 00:00:00 * Test Item Value Reference Range Interpretation Comme nts GLUCOSE 1 HR POST 50 GM (raghavendra t code = 2005) 152 MG/DL Peter F AustinGLUCOSE, 1 HR, GESTATIONAL SCREEN, 50 GM [id number] 00:00:00 * Test Item Value Reference Range Interpretation Comme nts GLUCOSE 1 HR POST 50 GM (raghavendra t code = 2005) 152 MG/DL Peter F AustinGLUCOSE, 1 HR, GESTATIONAL SCREEN, 50 GM [id number] 00:00:00 * Test Item Value Reference Range Interpretation Comme nts GLUCOSE 1 HR POST 50 GM (raghavendra t code = 2005) 152 MG/DL Peter F AustinGLUCOSE, 1 HR, GESTATIONAL SCREEN, 50 GM [id number] 00:00:00 * Test Item Value Reference Range Interpretation Comme nts GLUCOSE 1 HR POST 50 GM (raghavendra t code = 2005) 152 MG/DL Peter F AustinGLUCOSE, 1 HR, GESTATIONAL SCREEN, 50 GM [id number] 00:00:00 * Test Item Value Reference Range Interpretation Comme nts GLUCOSE 1 HR POST 50 GM (raghavendra t code = 2005) 152 MG/DL Peter F AustinGLUCOSE, 1 HR, GESTATIONAL SCREEN, 50 GM [id number] 00:00:00 * Test Item Value Reference Range Interpretation Comme nts GLUCOSE 1 HR POST 50 GM (raghavendra t code = 2005) 152 MG/DL Peter F AustinGLUCOSE, 1 HR, GESTATIONAL SCREEN, 50 GM [id number] 00:00:00 * Test Item Value Reference Range Interpretation Comme nts GLUCOSE 1 HR POST 50 GM (raghavendra t code = 2005) 152 MG/DL Peter F AustinGLUCOSE, 1 HR, GESTATIONAL SCREEN, 50 GM [id number] 00:00:00 * Test Item Value Reference Range Interpretation Comme nts GLUCOSE 1 HR POST 50 GM (raghavendra t code = 2005) 152 MG/DL Peter F AustinGLUCOSE, 1 HR, GESTATIONAL SCREEN, 50 GM [id number] 00:00:00 * Test Item Value Reference Range Interpretation Comme nts GLUCOSE 1 HR POST 50 GM (raghavendra t code = 2005) 152 MG/DL Peter F AustinHCG, [id number] 01:40:52* Test Item Value Reference Range Interpretation Comme nts HCG, QUANTITATIVE (test code = 2506) 24234 MIU/ML SEE BELOW EXPEC MARIAH VALUES FOR [...] . . . . . . MIU/ML 2-2VOVV-ABSKZPAEES FEMALES . . . . . . . . . . . . MIU/ML <=7 UNLESS OTHERWISE INDICATED, ALL TESTING PERFORMED AT [facility] [address] [place] [address] FIRMWARE MANAGER: GOPAL BACON M.D. CLIA NUMBER [id number] [facility] [place]. [id number] HCG, [id number] 00:00:00* Test Item Value Reference Range Interpretation Comme nts HCG, QUANTITATIVE (test code = 2506) 96344 MIU/ML Peter LoftonHCG, [id number] 00:00:00* Test Item Value Reference Range Interpretation Comme nts HCG, QUANTITATIVE (test code = 2506) 32114 MIU/ML Peter Romero AustinHCG, [id number] 00:00:00* Test Item Value Reference Range Interpretation Comme nts HCG, QUANTITATIVE (test code = 2506) 46064 MIU/ML Peter LoftonHCG, [id number] 00:00:00* Test Item Value Reference Range Interpretation Comme nts HCG, QUANTITATIVE (test code = 2506) 54904 MIU/ML Peter Romero AustinHCG, [id number] 00:00:00* Test Item Value Reference Range Interpretation Comme nts HCG, QUANTITATIVE (test code = 2506) 03908 MIU/ML Peter F AustinHCG, [id number] 00:00:00* Test Item Value Reference Range Interpretation Comme nts HCG, QUANTITATIVE (test code = 2506) 75607 MIU/ML Peter F AustinHCG, [id number] 00:00:00* Test Item Value Reference Range Interpretation Comme nts HCG, QUANTITATIVE (test code = 2506) 71504 MIU/ML Peter F AustinHCG, [id number] 00:00:00* Test Item Value Reference Range Interpretation Comme nts HCG, QUANTITATIVE (test code = 2506) 86920 MIU/ML Peter F AustinHCG, [id number] 00:00:00* Test Item Value Reference Range Interpretation Comme nts HCG, QUANTITATIVE (test code = 2506) 65082 MIU/ML Peter Romero AustinHCG, [id number] 00:00:00* Test Item Value Reference Range Interpretation Comme nts HCG, QUANTITATIVE (test code = 2506) 96521 MIU/ML Peter F AustinHCG, [id number] 00:00:00* Test Item Value Reference Range Interpretation Comme nts HCG, QUANTITATIVE (test code = 2506) 23949 MIU/ML Peter F AustinHCG, [id number] 00:00:00* Test Item Value Reference Range Interpretation Comme nts HCG, QUANTITATIVE (test code = 2506) 90469 MIU/ML Peter F AustinHCG, [id number] 00:00:00* Test Item Value Reference Range Interpretation Comme nts HCG, QUANTITATIVE (test code = 2506) 11597 MIU/ML Peter F AustinHCG, [id number] 00:00:00* Test Item Value Reference Range Interpretation Comme nts HCG, QUANTITATIVE (test code = 2506) 82264 MIU/ML Peter F AustinHCG, [id number] 00:00:00* Test Item Value Reference Range Interpretation Comme nts HCG, QUANTITATIVE (test code = 2506) 11429 MIU/ML Peter LoftonHCG, [id number] 00:00:00* Test Item Value Reference Range Interpretation Comme nts HCG, QUANTITATIVE (test code = 2506) 47038 MIU/ML Peter Romero AustinHCG, [id number] 00:00:00* Test Item Value Reference Range Interpretation Comme nts HCG, QUANTITATIVE (test code = 2506) 07876 MIU/ML Peter Romero AustinHCG, [id number] 00:00:00* Test Item Value Reference Range Interpretation Comme nts HCG, QUANTITATIVE (test code = 2506) 21457 MIU/ML Peter Romero AustinHCG, [id number] 00:00:00* Test Item Value Reference Range Interpretation Comme nts HCG, QUANTITATIVE (test code = 2506) 00964 MIU/ML Peter Romero AustinHEMOGLOBIN [id number] 00:00:00* Test Item Value Reference Range Interpretation Comme nts HEMOGLOBIN A1 (test code = 2575) 98.1 % HEMOGLOBIN A2 (test code = 2576) 1.9 % HEMOGLOBIN F () (test c ode = 2722) 0.0 % HEMOGLOBIN S (test code = 2724) NONE % HEMOGLOBIN C (test code = 2726) NONE % OTHER HEMOGLOBIN VARIANT (te st code = 76049) NONE DETEC % PATHOLOGIST'S INTERPRETATION (test code = 2577) (NOTE) Peter LoftonHCG, [id number] 00:00:00* Test Item Value Reference Range Interpretation Comme nts HCG, QUANTITATIVE (test code = 2506) 63035 MIU/ML Peter LoftonCULTURE, [id number] 00:00:00* Test Item Value Reference Range Interpretation Comme nts CULTURE, URINE (test code = 71381) SPECIMEN NUMBER: [id number] Peter Romero AustinHEMOGLOBIN [id number] 00:00:00* Test Item Value Reference Range Interpretation Comme nts HEMOGLOBIN A1 (test code = 2575) 98.1 % HEMOGLOBIN A2 (test code = 2576) 1.9 % HEMOGLOBIN F () (test c ode = 2722) 0.0 % HEMOGLOBIN S (test code = 2724) NONE % HEMOGLOBIN C (test code = 2726) NONE % OTHER HEMOGLOBIN VARIANT (te st code = 67278) NONE DETEC % PATHOLOGIST'S INTERPRETATION (test code = 2577) (NOTE) Peter LoftonHCG, [id number] 00:00:00* Test Item Value Reference Range Interpretation Comme nts HCG, QUANTITATIVE (test code = 2506) 98434 MIU/ML Peter LoftonCULTURE, [id number] 00:00:00* Test Item Value Reference Range Interpretation Comme nts CULTURE, URINE (test code = 21430) SPECIMEN NUMBER: [id number] Peter LoftonHCG, [id number] 00:00:00* Test Item Value Reference Range Interpretation Comme nts HCG, QUANTITATIVE (test code = 2506) 52025 MIU/ML Pteer LoftonCULTURE, [id number] 00:00:00* Test Item Value Reference Range Interpretation Comme nts CULTURE, URINE (test code = 99782) SPECIMEN NUMBER: [id number] Peter Romero AustinHEMOGLOBIN [id number] 00:00:00* Test Item Value Reference Range Interpretation Comme nts HEMOGLOBIN A1 (test code = 2575) 98.1 % HEMOGLOBIN A2 (test code = 2576) 1.9 % HEMOGLOBIN F () (test c ode = 2722) 0.0 % HEMOGLOBIN S (test code = 2724) NONE % HEMOGLOBIN C (test code = 2726) NONE % OTHER HEMOGLOBIN VARIANT (te st code = 59474) NONE DETEC % PATHOLOGIST'S INTERPRETATION (test code = 2577) (NOTE) Peter LoftonHCG, [id number] 00:00:00* Test Item Value Reference Range Interpretation Comme nts HCG, QUANTITATIVE (test code = 2506) 37559 MIU/ML Peter LoftonCULTURE, [id number] 00:00:00* Test Item Value Reference Range Interpretation Comme nts CULTURE, URINE (test code = 59231) SPECIMEN NUMBER: [id number] Peter LoftonHEMOGLOBIN [id number] 00:00:00* Test Item Value Reference Range Interpretation Comme nts HEMOGLOBIN A1 (test code = 2575) 98.1 % HEMOGLOBIN A2 (test code = 2576) 1.9 % HEMOGLOBIN F () (test c ode = 2722) 0.0 % HEMOGLOBIN S (test code = 2724) NONE % HEMOGLOBIN C (test code = 2726) NONE % OTHER HEMOGLOBIN VARIANT (te st code = 93060) NONE DETEC % PATHOLOGIST'S INTERPRETATION (test code = 2577) (NOTE) Peter LoftonHEMOGLOBIN [id number] 00:00:00* Test Item Value Reference Range Interpretation Comme nts HEMOGLOBIN A1 (test code = 2575) 98.1 % HEMOGLOBIN A2 (test code = 2576) 1.9 % HEMOGLOBIN F () (test c ode = 2722) 0.0 % HEMOGLOBIN S (test code = 2724) NONE % HEMOGLOBIN C (test code = 2726) NONE % OTHER HEMOGLOBIN VARIANT (te st code = 56613) NONE DETEC % PATHOLOGIST'S INTERPRETATION (test code = 2577) (NOTE) Peter Ugarte, [id number] 00:00:00* Test Item Value Reference Range Interpretation Comme nts CULTURE, URINE (test code = 61138) SPECIMEN NUMBER: [id number] Peter LoftonHCG, [id number] 00:00:00* Test Item Value Reference Range Interpretation Comme nts HCG, QUANTITATIVE (test code = 2506) 90741 MIU/ML Peter LoftonHEMOGLOBIN [id number] 00:00:00* Test Item Value Reference Range Interpretation Comme nts HEMOGLOBIN A1 (test code = 2575) 98.1 % HEMOGLOBIN A2 (test code = 2576) 1.9 % HEMOGLOBIN F () (test c ode = 2722) 0.0 % HEMOGLOBIN S (test code = 2724) NONE % HEMOGLOBIN C (test code = 2726) NONE % OTHER HEMOGLOBIN VARIANT (te st code = 06690) NONE DETEC % PATHOLOGIST'S INTERPRETATION (test code = 2577) (NOTE) Peter LoftonCULTBRYAN, [id number] 00:00:00* Test Item Value Reference Range Interpretation Comme nts CULTURE, URINE (test code = 84514) SPECIMEN NUMBER: [id number] Peter LoftonHCG, [id number] 00:00:00* Test Item Value Reference Range Interpretation Comme nts HCG, QUANTITATIVE (test code = 2506) 13929 MIU/ML Peter Romero AustinHEMOGLOBIN [id number] 00:00:00* Test Item Value Reference Range Interpretation Comme nts HEMOGLOBIN A1 (test code = 2575) 98.1 % HEMOGLOBIN A2 (test code = 2576) 1.9 % HEMOGLOBIN F () (test c ode = 2722) 0.0 % HEMOGLOBIN S (test code = 2724) NONE % HEMOGLOBIN C (test code = 2726) NONE % OTHER HEMOGLOBIN VARIANT (te st code = 27519) NONE DETEC % PATHOLOGIST'S INTERPRETATION (test code = 2577) (NOTE) Peter HurdLTBRYAN, [id number] 00:00:00* Test Item Value Reference Range Interpretation Comme nts CULTURE, URINE (test code = 98161) SPECIMEN NUMBER: [id number] Peter LoftonHCG, [id number] 00:00:00* Test Item Value Reference Range Interpretation Comme nts HCG, QUANTITATIVE (test code = 2506) 78817 MIU/ML Peter LoftonHEMOGLOBIN [id number] 00:00:00* Test Item Value Reference Range Interpretation Comme nts HEMOGLOBIN A1 (test code = 2575) 98.1 % HEMOGLOBIN A2 (test code = 2576) 1.9 % HEMOGLOBIN F () (test c ode = 2722) 0.0 % HEMOGLOBIN S (test code = 2724) NONE % HEMOGLOBIN C (test code = 2726) NONE % OTHER HEMOGLOBIN VARIANT (te st code = 29347) NONE DETEC % PATHOLOGIST'S INTERPRETATION (test code = 2577) (NOTE) Peter LoftonHCG, [id number] 00:00:00* Test Item Value Reference Range Interpretation Comme nts HCG, QUANTITATIVE (test code = 2506) 16088 MIU/ML Peter HurdLTURE, [id number] 00:00:00* Test Item Value Reference Range Interpretation Comme nts CULTURE, URINE (test code = 65352) SPECIMEN NUMBER: [id number] Peter LoftonHEMOGLOBIN [id number] 00:00:00* Test Item Value Reference Range Interpretation Comme nts HEMOGLOBIN A1 (test code = 2575) 98.1 % HEMOGLOBIN A2 (test code = 2576) 1.9 % HEMOGLOBIN F () (test c ode = 2722) 0.0 % HEMOGLOBIN S (test code = 2724) NONE % HEMOGLOBIN C (test code = 2726) NONE % OTHER HEMOGLOBIN VARIANT (te st code = 45289) NONE DETEC % PATHOLOGIST'S INTERPRETATION (test code = 2577) (NOTE) Peter LoftonHCG, [id number] 00:00:00* Test Item Value Reference Range Interpretation Comme nts HCG, QUANTITATIVE (test code = 2506) 15480 MIU/ML Peter HurdLTURE, [id number] 00:00:00* Test Item Value Reference Range Interpretation Comme nts CULTURE, URINE (test code = 77770) SPECIMEN NUMBER: [id number] Peter LoftonHEMOGLOBIN [id number] 00:00:00* Test Item Value Reference Range Interpretation Comme nts HEMOGLOBIN A1 (test code = 2575) 98.1 % HEMOGLOBIN A2 (test code = 2576) 1.9 % HEMOGLOBIN F () (test c ode = 2722) 0.0 % HEMOGLOBIN S (test code = 2724) NONE % HEMOGLOBIN C (test code = 2726) NONE % OTHER HEMOGLOBIN VARIANT (te st code = 12532) NONE DETEC % PATHOLOGIST'S INTERPRETATION (test code = 2577) (NOTE) Peter LoftonHCG, [id number] 00:00:00* Test Item Value Reference Range Interpretation Comme nts HCG, QUANTITATIVE (test code = 2506) 49141 MIU/ML Peter Ugarte, [id number] 00:00:00* Test Item Value Reference Range Interpretation Comme nts CULTURE, URINE (test code = 45896) SPECIMEN NUMBER: [id number] Peter LoftonHEMOGLOBIN [id number] 00:00:00* Test Item Value Reference Range Interpretation Comme nts HEMOGLOBIN A1 (test code = 2575) 98.1 % HEMOGLOBIN A2 (test code = 2576) 1.9 % HEMOGLOBIN F () (test c ode = 2722) 0.0 % HEMOGLOBIN S (test code = 2724) NONE % HEMOGLOBIN C (test code = 2726) NONE % OTHER HEMOGLOBIN VARIANT (te st code = 62561) NONE DETEC % PATHOLOGIST'S INTERPRETATION (test code = 2577) (NOTE) Peter HurdLTBRYAN, [id number] 00:00:00* Test Item Value Reference Range Interpretation Comme nts CULTURE, URINE (test code = 95700) SPECIMEN NUMBER: [id number] Peter LoftonHCG, [id number] 00:00:00* Test Item Value Reference Range Interpretation Comme nts HCG, QUANTITATIVE (test code = 2506) 78903 MIU/ML Peter LoftonHEMOGLOBIN [id number] 00:00:00* Test Item Value Reference Range Interpretation Comme nts HEMOGLOBIN A1 (test code = 2575) 98.1 % HEMOGLOBIN A2 (test code = 2576) 1.9 % HEMOGLOBIN F () (test c ode = 2722) 0.0 % HEMOGLOBIN S (test code = 2724) NONE % HEMOGLOBIN C (test code = 2726) NONE % OTHER HEMOGLOBIN VARIANT (te st code = 23674) NONE DETEC % PATHOLOGIST'S INTERPRETATION (test code = 2577) (NOTE) Peter LoftonHCG, [id number] 00:00:00* Test Item Value Reference Range Interpretation Comme nts HCG, QUANTITATIVE (test code = 2506) 66057 MIU/ML Peter LoftonCULTURE, [id number] 00:00:00* Test Item Value Reference Range Interpretation Comme nts CULTURE, URINE (test code = 05034) SPECIMEN NUMBER: [id number] Peter Romero AustinHEMOGLOBIN [id number] 00:00:00* Test Item Value Reference Range Interpretation Comme nts HEMOGLOBIN A1 (test code = 2575) 98.1 % HEMOGLOBIN A2 (test code = 2576) 1.9 % HEMOGLOBIN F () (test c ode = 2722) 0.0 % HEMOGLOBIN S (test code = 2724) NONE % HEMOGLOBIN C (test code = 2726) NONE % OTHER HEMOGLOBIN VARIANT (te st code = 30703) NONE DETEC % PATHOLOGIST'S INTERPRETATION (test code = 2577) (NOTE) Peter LoftonHCG, [id number] 00:00:00* Test Item Value Reference Range Interpretation Comme nts HCG, QUANTITATIVE (test code = 2506) 46349 MIU/ML Peter LoftonCULTURE, [id number] 00:00:00* Test Item Value Reference Range Interpretation Comme nts CULTURE, URINE (test code = 29069) SPECIMEN NUMBER: [id number] Peter LoftonHEMOGLOBIN [id number] 00:00:00* Test Item Value Reference Range Interpretation Comme nts HEMOGLOBIN A1 (test code = 2575) 98.1 % HEMOGLOBIN A2 (test code = 2576) 1.9 % HEMOGLOBIN F () (test c ode = 2722) 0.0 % HEMOGLOBIN S (test code = 2724) NONE % HEMOGLOBIN C (test code = 2726) NONE % OTHER HEMOGLOBIN VARIANT (te st code = 48928) NONE DETEC % PATHOLOGIST'S INTERPRETATION (test code = 2577) (NOTE) Peter Ugarte, [id number] 00:00:00* Test Item Value Reference Range Interpretation Comme nts CULTURE, URINE (test code = 94161) SPECIMEN NUMBER: [id number] Peter LoftonHCG, [id number] 00:00:00* Test Item Value Reference Range Interpretation Comme nts HCG, QUANTITATIVE (test code = 2506) 11062 MIU/ML Peter LoftonHEMOGLOBIN [id number] 00:00:00* Test Item Value Reference Range Interpretation Comme nts HEMOGLOBIN A1 (test code = 2575) 98.1 % HEMOGLOBIN A2 (test code = 2576) 1.9 % HEMOGLOBIN F () (test c ode = 2722) 0.0 % HEMOGLOBIN S (test code = 2724) NONE % HEMOGLOBIN C (test code = 2726) NONE % OTHER HEMOGLOBIN VARIANT (te st code = 12131) NONE DETEC % PATHOLOGIST'S INTERPRETATION (test code = 2577) (NOTE) Peter Ugarte, [id number] 00:00:00* Test Item Value Reference Range Interpretation Comme nts CULTURE, URINE (test code = 63583) SPECIMEN NUMBER: [id number] Peter LoftonHCG, [id number] 00:00:00* Test Item Value Reference Range Interpretation Comme nts HCG, QUANTITATIVE (test code = 2506) 01932 MIU/ML Peter LoftonHEMOGLOBIN [id number] 00:00:00* Test Item Value Reference Range Interpretation Comme nts HEMOGLOBIN A1 (test code = 2575) 98.1 % HEMOGLOBIN A2 (test code = 2576) 1.9 % HEMOGLOBIN F () (test c ode = 2722) 0.0 % HEMOGLOBIN S (test code = 2724) NONE % HEMOGLOBIN C (test code = 2726) NONE % OTHER HEMOGLOBIN VARIANT (te st code = 71382) NONE DETEC % PATHOLOGIST'S INTERPRETATION (test code = 2577) (NOTE) Peter CanelaG, [id number] 00:00:00* Test Item Value Reference Range Interpretation Comme nts HCG, QUANTITATIVE (test code = 2506) 91964 MIU/ML Peter HurdLTBRYAN, [id number] 00:00:00* Test Item Value Reference Range Interpretation Comme nts CULTURE, URINE (test code = 92760) SPECIMEN NUMBER: [id number] Peter LoftonHEMOGLOBIN [id number] 00:00:00* Test Item Value Reference Range Interpretation Comme nts HEMOGLOBIN A1 (test code = 2575) 98.1 % HEMOGLOBIN A2 (test code = 2576) 1.9 % HEMOGLOBIN F () (test c ode = 2722) 0.0 % HEMOGLOBIN S (test code = 2724) NONE % HEMOGLOBIN C (test code = 2726) NONE % OTHER HEMOGLOBIN VARIANT (te st code = 31514) NONE DETEC % PATHOLOGIST'S INTERPRETATION (test code = 2577) (NOTE) Peter Ugarte, [id number] 00:00:00* Test Item Value Reference Range Interpretation Comme nts CULTURE, URINE (test code = 37112) SPECIMEN NUMBER: [id number] Peter LoftonHCG, [id number] 00:00:00* Test Item Value Reference Range Interpretation Comme nts HCG, QUANTITATIVE (test code = 2506) 38409 MIU/ML Peter LoftonHEMOGLOBIN [id number] 00:00:00* Test Item Value Reference Range Interpretation Comme nts HEMOGLOBIN A1 (test code = 2575) 98.1 % HEMOGLOBIN A2 (test code = 2576) 1.9 % HEMOGLOBIN F () (test c ode = 2722) 0.0 % HEMOGLOBIN S (test code = 2724) NONE % HEMOGLOBIN C (test code = 2726) NONE % OTHER HEMOGLOBIN VARIANT (te st code = 73499) NONE DETEC % PATHOLOGIST'S INTERPRETATION (test code = 2577) (NOTE) Peter Ugarte, [id number] 00:00:00* Test Item Value Reference Range Interpretation Comme nts CULTURE, URINE (test code = 84770) SPECIMEN NUMBER: [id number] Peter LoftonHCG, [id number] 00:00:00* Test Item Value Reference Range Interpretation Comme nts HCG, QUANTITATIVE (test code = 2506) 70828 MIU/ML Peter LoftonHEMOGLOBIN [id number] 00:00:00* Test Item Value Reference Range Interpretation Comme nts HEMOGLOBIN A1 (test code = 2575) 98.1 % HEMOGLOBIN A2 (test code = 2576) 1.9 % HEMOGLOBIN F () (test c ode = 2722) 0.0 % HEMOGLOBIN S (test code = 2724) NONE % HEMOGLOBIN C (test code = 2726) NONE % OTHER HEMOGLOBIN VARIANT (te st code = 41384) NONE DETEC % PATHOLOGIST'S INTERPRETATION (test code = 2577) (NOTE) Peter LoftonCULTURE, [id number] 00:00:00* Test Item Value Reference Range Interpretation Comme nts CULTURE, URINE (test code = 61179) SPECIMEN NUMBER: [id number] Peter LoftonHCG, [id number] 00:00:00* Test Item Value Reference Range Interpretation Comme nts HCG, QUANTITATIVE (test code = 2506) 28519 MIU/ML Peter LoftonCT/NG, TMA, [id number] 00:00:00* Test Item Value Reference Range Interpretation Comme nts CHLAMYDIA, NAAT, URINE (test code = 65419) NEGATIVE GONORRHEA, NAAT, URINE (test code = 46643) NEGATIVE Peter LoftonOBSTETRIC PANEL + [id number] 00:00:00* Test Item Value Reference Range Interpretation [...] K/UL ABS NUCLEATED RBCS (test code = 50765) 0.00 K/UL BLOOD TYPE AND RH (test code = 3901) O POSITIVE ANTIBODY SCREEN (test code = 3902) NEGATIVE RUBELLA ANTIBODY SCREEN (test code = 4600) 379 IU/ML RUBELLA IgG INTERP (test code = 41102) REACTIVE HEPATITIS B SURF AG (test code = 2739) NON-REACTIVE RPR (test code = 23740) NON-REACTIVE RPR TITER (test code = 3500) NOT INDIC. TITER HIV 1/2 4TH GEN, RFLX CONF (test code = 3514) NON-REACTIVE Peter LoftonDRUG ABUSE PANEL 10 WITH [id number] 00:00:00* Test Item Value Reference Range Interpretation Comme nts AMPHETAMINES (test code = 3201) NEGATIVE BARBITURATES (test code = 3202) NEGATIVE BENZODIAZEPINES (test code = 3203) NEGATIVE CANNABINOIDS (test code = 3204) NEGATIVE COCAINE METABOLITE (test cod e = 3205) NEGATIVE OPIATES (test code = 3209) NEGATIVE OXYCODONE (test code = 06679) NEGATIVE PHENCYCLIDINE (test code = 3210) NEGATIVE METHADONE (test code = 3207) NEGATIVE BUPRENORPHINE (test code = 16302) NEGATIVE SOURCE (test code = 289687) URINE Peter LoftonVARICELLA ZOSTER [id number] 00:00:00* Test Item Value Reference Range Interpretation Comme nts VARICELLA ZOSTER IgG (test c ode = 56015) >2000 INDEX Peter LoftonHEPATITIS C REFLEX [id number] 00:00:00* Test Item Value Reference Range Interpretation Comme nts HEPATITIS C ANTIBODY (test c ode = 4659) NON-REACTIVE Peter LoftonGLUCOSE, 1 HR, GESTATIONAL SCREEN, 50 GM [id number] 00:00:00 * Test Item Value Reference Range Interpretation Comme michael GLUCOSE 1 HR POST 50 GM (raghavendra t code = 2005) 121 MG/DL Peter oLftonTRICHOMONAS, URINE, [id number] 00:00:00* Test Item Value Reference Range Interpretation Comme nts TRICHOMONAS, NAAT, URINE (te st code = 72916) NEGATIVE Peter LoftonCT/NG, TMA, [id number] 00:00:00* Test Item Value Reference Range Interpretation Comme nts CHLAMYDIA, NAAT, URINE (test code = 24761) NEGATIVE GONORRHEA, NAAT, URINE (test code = 89774) NEGATIVE Peter LoftonOBSTETRIC PANEL + [id number] 00:00:00* Test Item Value Reference Range Interpretation [...] K/UL ABS NUCLEATED RBCS (test code = 75878) 0.00 K/UL BLOOD TYPE AND RH (test code = 3901) O POSITIVE ANTIBODY SCREEN (test code = 3902) NEGATIVE RUBELLA ANTIBODY SCREEN (test code = 4600) 379 IU/ML RUBELLA IgG INTERP (test code = 59002) REACTIVE HEPATITIS B SURF AG (test code = 2739) NON-REACTIVE RPR (test code = 00742) NON-REACTIVE RPR TITER (test code = 3500) NOT INDIC. TITER HIV 1/2 4TH GEN, RFLX CONF (test code = 3514) NON-REACTIVE Peter LoftonDRUG ABUSE PANEL 10 WITH [id number] 00:00:00* Test Item Value Reference Range Interpretation Comme nts AMPHETAMINES (test code = 3201) NEGATIVE BARBITURATES (test code = 3202) NEGATIVE BENZODIAZEPINES (test code = 3203) NEGATIVE CANNABINOIDS (test code = 3204) NEGATIVE COCAINE METABOLITE (test cod e = 3205) NEGATIVE OPIATES (test code = 3209) NEGATIVE OXYCODONE (test code = 31473) NEGATIVE PHENCYCLIDINE (test code = 3210) NEGATIVE METHADONE (test code = 3207) NEGATIVE BUPRENORPHINE (test code = 47421) NEGATIVE SOURCE (test code = 296422) URINE Peter LoftonVARICELLA ZOSTER [id number] 00:00:00* Test Item Value Reference Range Interpretation Comme nts VARICELLA ZOSTER IgG (test c ode = 28146) >2000 INDEX Peter LoftonHEPATITIS C REFLEX [id number] 00:00:00* Test Item Value Reference Range Interpretation Comme nts HEPATITIS C ANTIBODY (test c ode = 4675) NON-REACTIVE Peter LoftonGLUCOSE, 1 HR, GESTATIONAL SCREEN, 50 GM [id number] 00:00:00 * Test Item Value Reference Range Interpretation Comme nts GLUCOSE 1 HR POST 50 GM (raghavendra t code = 2005) 121 MG/DL Peter LoftonTRICHOMONAS, URINE, [id number] 00:00:00* Test Item Value Reference Range Interpretation Comme nts TRICHOMONAS, NAAT, URINE (te st code = 26523) NEGATIVE Peter LoftonCT/NG, TMA, [id number] 00:00:00* Test Item Value Reference Range Interpretation Comme nts CHLAMYDIA, NAAT, URINE (test code = 03753) NEGATIVE GONORRHEA, NAAT, URINE (test code = 09133) NEGATIVE Peter LoftonOBSTETRIC PANEL + [id number] 00:00:00* Test Item Value Reference Range Interpretation [...] K/UL ABS NUCLEATED RBCS (test code = 12677) 0.00 K/UL BLOOD TYPE AND RH (test code = 3901) O POSITIVE ANTIBODY SCREEN (test code = 3902) NEGATIVE RUBELLA ANTIBODY SCREEN (test code = 4600) 379 IU/ML RUBELLA IgG INTERP (test code = 60449) REACTIVE HEPATITIS B SURF AG (test code = 2739) NON-REACTIVE RPR (test code = 51842) NON-REACTIVE RPR TITER (test code = 3500) NOT INDIC. TITER HIV 1/2 4TH GEN, RFLX CONF (test code = 3514) NON-REACTIVE Peter LoftonDRUG ABUSE PANEL 10 WITH [id number] 00:00:00* Test Item Value Reference Range Interpretation Comme nts AMPHETAMINES (test code = 3201) NEGATIVE BARBITURATES (test code = 3202) NEGATIVE BENZODIAZEPINES (test code = 3203) NEGATIVE CANNABINOIDS (test code = 3204) NEGATIVE COCAINE METABOLITE (test cod e = 3205) NEGATIVE OPIATES (test code = 3209) NEGATIVE OXYCODONE (test code = 27892) NEGATIVE PHENCYCLIDINE (test code = 3210) NEGATIVE METHADONE (test code = 3207) NEGATIVE BUPRENORPHINE (test code = 65741) NEGATIVE SOURCE (test code = 797317) URINE Peter LoftonCT/NG, TMA, [id number] 00:00:00* Test Item Value Reference Range Interpretation Comme nts CHLAMYDIA, NAAT, URINE (test code = 96019) NEGATIVE GONORRHEA, NAAT, URINE (test code = 55382) NEGATIVE Peter LoftonVARICELLA ZOSTER [id number] 00:00:00* Test Item Value Reference Range Interpretation Comme michael VARICELLA ZOSTER IgG (test c ode = 71675) >2000 INDEX Peter LoftonHEPATITIS C REFLEX [id number] 00:00:00* Test Item Value Reference Range Interpretation Comme nts HEPATITIS C ANTIBODY (test c ode = 4675) NON-REACTIVE Peter LoftonGLUCOSE, 1 HR, GESTATIONAL SCREEN, 50 GM [id number] 00:00:00 * Test Item Value Reference Range Interpretation Comme nts GLUCOSE 1 HR POST 50 GM (raghavendra t code = 2005) 121 MG/DL Peter LoftonTRICHOMONAS, URINE, [id number] 00:00:00* Test Item Value Reference Range Interpretation Comme nts TRICHOMONAS, NAAT, URINE (te st code = 01207) NEGATIVE Peter LoftonOBSTETRIC PANEL + [id number] 00:00:00* Test Item Value Reference Range Interpretation [...] K/UL ABS NUCLEATED RBCS (test code = 90591) 0.00 K/UL BLOOD TYPE AND RH (test code = 3901) O POSITIVE ANTIBODY SCREEN (test code = 3902) NEGATIVE RUBELLA ANTIBODY SCREEN (test code = 4600) 379 IU/ML RUBELLA IgG INTERP (test code = 90784) REACTIVE HEPATITIS B SURF AG (test code = 2739) NON-REACTIVE RPR (test code = 20397) NON-REACTIVE RPR TITER (test code = 3500) NOT INDIC. TITER HIV 1/2 4TH GEN, RFLX CONF (test code = 3514) NON-REACTIVE Peter LoftonDRUG ABUSE PANEL 10 WITH [id number] 00:00:00* Test Item Value Reference Range Interpretation Comme nts AMPHETAMINES (test code = 3201) NEGATIVE BARBITURATES (test code = 3202) NEGATIVE BENZODIAZEPINES (test code = 3203) NEGATIVE CANNABINOIDS (test code = 3204) NEGATIVE COCAINE METABOLITE (test cod e = 3205) NEGATIVE OPIATES (test code = 3209) NEGATIVE OXYCODONE (test code = 34205) NEGATIVE PHENCYCLIDINE (test code = 3210) NEGATIVE METHADONE (test code = 3207) NEGATIVE BUPRENORPHINE (test code = 46967) NEGATIVE SOURCE (test code = 181313) URINE Peter LoftonCT/NG, TMA, [id number] 00:00:00* Test Item Value Reference Range Interpretation Comme nts CHLAMYDIA, NAAT, URINE (test code = 83281) NEGATIVE GONORRHEA, NAAT, URINE (test code = 84431) NEGATIVE Peter LoftonOBSTETRIC PANEL + [id number] 00:00:00* Test Item Value Reference Range Interpretation [...] K/UL ABS NUCLEATED RBCS (test code = 15606) 0.00 K/UL BLOOD TYPE AND RH (test code = 3901) O POSITIVE ANTIBODY SCREEN (test code = 3902) NEGATIVE RUBELLA ANTIBODY SCREEN (test code = 4600) 379 IU/ML RUBELLA IgG INTERP (test code = 79048) REACTIVE HEPATITIS B SURF AG (test code = 2739) NON-REACTIVE RPR (test code = 88868) NON-REACTIVE RPR TITER (test code = 3500) NOT INDIC. TITER HIV 1/2 4TH GEN, RFLX CONF (test code = 3514) NON-REACTIVE Peter LoftonDRUG ABUSE PANEL 10 WITH [id number] 00:00:00* Test Item Value Reference Range Interpretation Comme nts AMPHETAMINES (test code = 3201) NEGATIVE BARBITURATES (test code = 3202) NEGATIVE BENZODIAZEPINES (test code = 3203) NEGATIVE CANNABINOIDS (test code = 3204) NEGATIVE COCAINE METABOLITE (test cod e = 3205) NEGATIVE OPIATES (test code = 3209) NEGATIVE OXYCODONE (test code = 39238) NEGATIVE PHENCYCLIDINE (test code = 3210) NEGATIVE METHADONE (test code = 3207) NEGATIVE BUPRENORPHINE (test code = 56597) NEGATIVE SOURCE (test code = 649254) URINE Peter LoftonVARICELLA ZOSTER [id number] 00:00:00* Test Item Value Reference Range Interpretation Comme nts VARICELLA ZOSTER IgG (test c ode = 01147) >2000 INDEX Peter LoftonVARICELLA ZOSTER [id number] 00:00:00* Test Item Value Reference Range Interpretation Comme nts VARICELLA ZOSTER IgG (test c ode = 09136) >2000 INDEX Peter LoftonHEPATITIS C REFLEX [id number] 00:00:00* Test Item Value Reference Range Interpretation Comme nts HEPATITIS C ANTIBODY (test c ode = 4675) NON-REACTIVE Peter LoftonGLUCOSE, 1 HR, GESTATIONAL SCREEN, 50 GM [id number] 00:00:00 * Test Item Value Reference Range Interpretation Comme nts GLUCOSE 1 HR POST 50 GM (raghavendra t code = 2005) 121 MG/DL Peter LoftonTRICHOMONAS, URINE, [id number] 00:00:00* Test Item Value Reference Range Interpretation Comme nts TRICHOMONAS, NAAT, URINE (te st code = 84808) NEGATIVE Peter LoftonHEPATITIS C REFLEX [id number] 00:00:00* Test Item Value Reference Range Interpretation Comme nts HEPATITIS C ANTIBODY (test c ode = 4675) NON-REACTIVE Peter LoftonGLUCOSE, 1 HR, GESTATIONAL SCREEN, 50 GM [id number] 00:00:00 * Test Item Value Reference Range Interpretation Comme nts GLUCOSE 1 HR POST 50 GM (raghavendra t code = 2006) 121 MG/DL Peter LoftonTRICHOMONAS, URINE, [id number] 00:00:00* Test Item Value Reference Range Interpretation Comme nts TRICHOMONAS, NAAT, URINE (te st code = 06879) NEGATIVE Peter LoftonCT/NG, TMA, [id number] 00:00:00* Test Item Value Reference Range Interpretation Comme nts CHLAMYDIA, NAAT, URINE (test code = 67751) NEGATIVE GONORRHEA, NAAT, URINE (test code = 63525) NEGATIVE Peter LoftonOBSTETRIC PANEL + [id number] 00:00:00* Test Item Value Reference Range Interpretation [...] K/UL ABS NUCLEATED RBCS (test code = 10342) 0.00 K/UL BLOOD TYPE AND RH (test code = 3901) O POSITIVE ANTIBODY SCREEN (test code = 3902) NEGATIVE RUBELLA ANTIBODY SCREEN (test code = 4600) 379 IU/ML RUBELLA IgG INTERP (test code = 06367) REACTIVE HEPATITIS B SURF AG (test code = 2739) NON-REACTIVE RPR (test code = 02639) NON-REACTIVE RPR TITER (test code = 3500) NOT INDIC. TITER HIV 1/2 4TH GEN, RFLX CONF (test code = 3514) NON-REACTIVE Peter LoftonDRUG ABUSE PANEL 10 WITH [id number] 00:00:00* Test Item Value Reference Range Interpretation Comme nts AMPHETAMINES (test code = 3201) NEGATIVE BARBITURATES (test code = 3202) NEGATIVE BENZODIAZEPINES (test code = 3203) NEGATIVE CANNABINOIDS (test code = 3204) NEGATIVE COCAINE METABOLITE (test cod e = 3205) NEGATIVE OPIATES (test code = 3209) NEGATIVE OXYCODONE (test code = 74687) NEGATIVE PHENCYCLIDINE (test code = 3210) NEGATIVE METHADONE (test code = 3207) NEGATIVE BUPRENORPHINE (test code = 01299) NEGATIVE SOURCE (test code = 739232) URINE Peter LoftonVARICELLA ZOSTER [id number] 00:00:00* Test Item Value Reference Range Interpretation Comme nts VARICELLA ZOSTER IgG (test c ode = 62940) >2000 INDEX Peter LoftonHEPATITIS C REFLEX [id number] 00:00:00* Test Item Value Reference Range Interpretation Comme nts HEPATITIS C ANTIBODY (test c ode = 4675) NON-REACTIVE Peter LoftonGLUCOSE, 1 HR, GESTATIONAL SCREEN, 50 GM [id number] 00:00:00 * Test Item Value Reference Range Interpretation Comme nts GLUCOSE 1 HR POST 50 GM (raghavendra t code = 2005) 121 MG/DL Peter LoftonTRICHOMONAS, URINE, [id number] 00:00:00* Test Item Value Reference Range Interpretation Comme nts TRICHOMONAS, NAAT, URINE (te st code = 95195) NEGATIVE Peter LoftonCT/NG, TMA, [id number] 00:00:00* Test Item Value Reference Range Interpretation Comme nts CHLAMYDIA, NAAT, URINE (test code = 41961) NEGATIVE GONORRHEA, NAAT, URINE (test code = 60032) NEGATIVE Peter LoftonOBSTETRIC PANEL + [id number] 00:00:00* Test Item Value Reference Range Interpretation [...] K/UL ABS NUCLEATED RBCS (test code = 52229) 0.00 K/UL BLOOD TYPE AND RH (test code = 3901) O POSITIVE ANTIBODY SCREEN (test code = 3902) NEGATIVE RUBELLA ANTIBODY SCREEN (test code = 4600) 379 IU/ML RUBELLA IgG INTERP (test code = 53203) REACTIVE HEPATITIS B SURF AG (test code = 0569) NON-REACTIVE RPR (test code = 22694) NON-REACTIVE RPR TITER (test code = 3500) NOT INDIC. TITER HIV 1/2 4TH GEN, RFLX CONF (test code = 3514) NON-REACTIVE Peter LoftonDRUG ABUSE PANEL 10 WITH [id number] 00:00:00* Test Item Value Reference Range Interpretation Comme nts AMPHETAMINES (test code = 3201) NEGATIVE BARBITURATES (test code = 3202) NEGATIVE BENZODIAZEPINES (test code = 3203) NEGATIVE CANNABINOIDS (test code = 3204) NEGATIVE COCAINE METABOLITE (test cod e = 3205) NEGATIVE OPIATES (test code = 3209) NEGATIVE OXYCODONE (test code = 86398) NEGATIVE PHENCYCLIDINE (test code = 3210) NEGATIVE METHADONE (test code = 3207) NEGATIVE BUPRENORPHINE (test code = 00284) NEGATIVE SOURCE (test code = 293817) URINE Peter LoftonVARICELLA ZOSTER [id number] 00:00:00* Test Item Value Reference Range Interpretation Comme nts VARICELLA ZOSTER IgG (test c ode = 02679) >2000 INDEX Peter LoftonHEPATITIS C REFLEX [id number] 00:00:00* Test Item Value Reference Range Interpretation Comme nts HEPATITIS C ANTIBODY (test c ode = 4675) NON-REACTIVE Peter LoftonGLUCOSE, 1 HR, GESTATIONAL SCREEN, 50 GM [id number] 00:00:00 * Test Item Value Reference Range Interpretation Comme nts GLUCOSE 1 HR POST 50 GM (raghavendra t code = 2005) 121 MG/DL Peter LoftonTRICHOMONAS, URINE, [id number] 00:00:00* Test Item Value Reference Range Interpretation Comme nts TRICHOMONAS, NAAT, URINE (te st code = 41602) NEGATIVE Peter LoftonCT/NG, TMA, [id number] 00:00:00* Test Item Value Reference Range Interpretation Comme nts CHLAMYDIA, NAAT, URINE (test code = 54140) NEGATIVE GONORRHEA, NAAT, URINE (test code = 97049) NEGATIVE Peter LoftonOBSTETRIC PANEL + [id number] 00:00:00* Test Item Value Reference Range Interpretation [...] K/UL ABS NUCLEATED RBCS (test code = 63766) 0.00 K/UL BLOOD TYPE AND RH (test code = 3901) O POSITIVE ANTIBODY SCREEN (test code = 3902) NEGATIVE RUBELLA ANTIBODY SCREEN (test code = 4600) 379 IU/ML RUBELLA IgG INTERP (test code = 30997) REACTIVE HEPATITIS B SURF AG (test code = 2739) NON-REACTIVE RPR (test code = 24929) NON-REACTIVE RPR TITER (test code = 3500) NOT INDIC. TITER HIV 1/2 4TH GEN, RFLX CONF (test code = 3514) NON-REACTIVE Peter LoftonDRUG ABUSE PANEL 10 WITH [id number] 00:00:00* Test Item Value Reference Range Interpretation Comme nts AMPHETAMINES (test code = 3201) NEGATIVE BARBITURATES (test code = 3202) NEGATIVE BENZODIAZEPINES (test code = 3203) NEGATIVE CANNABINOIDS (test code = 3204) NEGATIVE COCAINE METABOLITE (test cod e = 3205) NEGATIVE OPIATES (test code = 3209) NEGATIVE OXYCODONE (test code = 89163) NEGATIVE PHENCYCLIDINE (test code = 3210) NEGATIVE METHADONE (test code = 3207) NEGATIVE BUPRENORPHINE (test code = 45949) NEGATIVE SOURCE (test code = 844497) URINE Petermadelyn Tesfaye ZOSTER [id number] 00:00:00* Test Item Value Reference Range Interpretation Comme michael VARICELLA ZOSTER IgG (test c ode = 26186) >2000 INDEX Peter LoftonHEPATITIS C REFLEX [id number] 00:00:00* Test Item Value Reference Range Interpretation Comme michael HEPATITIS C ANTIBODY (test c ode = 2996) NON-REACTIVE Peter LoftonGLUCOSE, 1 HR, GESTATIONAL SCREEN, 50 GM [id number] 00:00:00 * Test Item Value Reference Range Interpretation Comme michael GLUCOSE 1 HR POST 50 GM (raghavendra t code = 2006) 121 MG/DL Peter LoftonTRICHOMONAS, URINE, [id number] 00:00:00* Test Item Value Reference Range Interpretation Comme nts TRICHOMONAS, NAAT, URINE (te st code = 15666) NEGATIVE Peter LoftonCT/NG, TMA, [id number] 00:00:00* Test Item Value Reference Range Interpretation Comme nts CHLAMYDIA, NAAT, URINE (test code = 87379) NEGATIVE GONORRHEA, NAAT, URINE (test code = 08514) NEGATIVE Peter LoftonOBSTETRIC PANEL + [id number] 00:00:00* Test Item Value Reference Range Interpretation Comme michael WBC (test code = 1001) 10.5 K/UL [...] K/UL ABS NUCLEATED RBCS (test code = 89261) 0.00 K/UL BLOOD TYPE AND RH (test code = 3901) O POSITIVE ANTIBODY SCREEN (test code = 3902) NEGATIVE RUBELLA ANTIBODY SCREEN (test code = 4600) 379 IU/ML RUBELLA IgG INTERP (test code = 71322) REACTIVE HEPATITIS B SURF AG (test code = 2739) NON-REACTIVE RPR (test code = 80186) NON-REACTIVE RPR TITER (test code = 3500) NOT INDIC. TITER HIV 1/2 4TH GEN, RFLX CONF (test code = 3514) NON-REACTIVE Peter LoftonDRUG ABUSE PANEL 10 WITH [id number] 00:00:00* Test Item Value Reference Range Interpretation Comme nts AMPHETAMINES (test code = 3201) NEGATIVE BARBITURATES (test code = 3202) NEGATIVE BENZODIAZEPINES (test code = 3203) NEGATIVE CANNABINOIDS (test code = 3204) NEGATIVE COCAINE METABOLITE (test cod e = 3205) NEGATIVE OPIATES (test code = 3209) NEGATIVE OXYCODONE (test code = 33009) NEGATIVE PHENCYCLIDINE (test code = 3210) NEGATIVE METHADONE (test code = 3207) NEGATIVE BUPRENORPHINE (test code = 03737) NEGATIVE SOURCE (test code = 623833) URINE Peter LoftonVARICELLA ZOSTER [id number] 00:00:00* Test Item Value Reference Range Interpretation Comme nts VARICELLA ZOSTER IgG (test c ode = 57917) >2000 INDEX Peter LoftonHEPATITIS C REFLEX [id number] 00:00:00* Test Item Value Reference Range Interpretation Comme nts HEPATITIS C ANTIBODY (test c ode = 4661) NON-REACTIVE Peter LoftonGLUCOSE, 1 HR, GESTATIONAL SCREEN, 50 GM [id number] 00:00:00 * Test Item Value Reference Range Interpretation Comme nts GLUCOSE 1 HR POST 50 GM (raghavendra t code = 2005) 121 MG/DL Peter LoftonTRICHOMONAS, URINE, [id number] 00:00:00* Test Item Value Reference Range Interpretation Comme nts TRICHOMONAS, NAAT, URINE (te st code = 34019) NEGATIVE Peter LoftonCT/NG, TMA, [id number] 00:00:00* Test Item Value Reference Range Interpretation Comme nts CHLAMYDIA, NAAT, URINE (test code = 15143) NEGATIVE GONORRHEA, NAAT, URINE (test code = 05933) NEGATIVE Peter LoftonOBSTETRIC PANEL + [id number] 00:00:00* Test Item Value Reference Range Interpretation [...] K/UL ABS NUCLEATED RBCS (test code = 22176) 0.00 K/UL BLOOD TYPE AND RH (test code = 3901) O POSITIVE ANTIBODY SCREEN (test code = 3902) NEGATIVE RUBELLA ANTIBODY SCREEN (test code = 4600) 379 IU/ML RUBELLA IgG INTERP (test code = 88501) REACTIVE HEPATITIS B SURF AG (test code = 2739) NON-REACTIVE RPR (test code = 47171) NON-REACTIVE RPR TITER (test code = 3500) NOT INDIC. TITER HIV 1/2 4TH GEN, RFLX CONF (test code = 3514) NON-REACTIVE Peter LoftonDRUG ABUSE PANEL 10 WITH [id number] 00:00:00* Test Item Value Reference Range Interpretation Comme nts AMPHETAMINES (test code = 3201) NEGATIVE BARBITURATES (test code = 3202) NEGATIVE BENZODIAZEPINES (test code = 3203) NEGATIVE CANNABINOIDS (test code = 3204) NEGATIVE COCAINE METABOLITE (test cod e = 3205) NEGATIVE OPIATES (test code = 3209) NEGATIVE OXYCODONE (test code = 21718) NEGATIVE PHENCYCLIDINE (test code = 3210) NEGATIVE METHADONE (test code = 3207) NEGATIVE BUPRENORPHINE (test code = 02239) NEGATIVE SOURCE (test code = 380379) URINE Peter LoftonVARICELLA ZOSTER [id number] 00:00:00* Test Item Value Reference Range Interpretation Comme nts VARICELLA ZOSTER IgG (test c ode = 66323) >2000 INDEX Peter LoftonHEPATITIS C REFLEX [id number] 00:00:00* Test Item Value Reference Range Interpretation Comme nts HEPATITIS C ANTIBODY (test c ode = 4675) NON-REACTIVE Peter LoftonGLUCOSE, 1 HR, GESTATIONAL SCREEN, 50 GM [id number] 00:00:00 * Test Item Value Reference Range Interpretation Comme nts GLUCOSE 1 HR POST 50 GM (raghavendra t code = 2006) 121 MG/DL Peter LoftonTRICHOMONAS, URINE, [id number] 00:00:00* Test Item Value Reference Range Interpretation Comme nts TRICHOMONAS, NAAT, URINE (te st code = 84132) NEGATIVE Peter LoftonCT/NG, TMA, [id number] 00:00:00* Test Item Value Reference Range Interpretation Comme nts CHLAMYDIA, NAAT, URINE (test code = 63129) NEGATIVE GONORRHEA, NAAT, URINE (test code = 53820) NEGATIVE Peter LoftonOBSTETRIC PANEL + [id number] 00:00:00* Test Item Value Reference Range Interpretation [...] K/UL ABS NUCLEATED RBCS (test code = 73578) 0.00 K/UL BLOOD TYPE AND RH (test code = 3901) O POSITIVE ANTIBODY SCREEN (test code = 3902) NEGATIVE RUBELLA ANTIBODY SCREEN (test code = 4600) 379 IU/ML RUBELLA IgG INTERP (test code = 26696) REACTIVE HEPATITIS B SURF AG (test code = 2739) NON-REACTIVE RPR (test code = 21983) NON-REACTIVE RPR TITER (test code = 3500) NOT INDIC. TITER HIV 1/2 4TH GEN, RFLX CONF (test code = 3514) NON-REACTIVE Peter LoftonDRUG ABUSE PANEL 10 WITH [id number] 00:00:00* Test Item Value Reference Range Interpretation Comme nts AMPHETAMINES (test code = 3201) NEGATIVE BARBITURATES (test code = 3202) NEGATIVE BENZODIAZEPINES (test code = 3203) NEGATIVE CANNABINOIDS (test code = 3204) NEGATIVE COCAINE METABOLITE (test cod e = 3205) NEGATIVE OPIATES (test code = 3209) NEGATIVE OXYCODONE (test code = 00376) NEGATIVE PHENCYCLIDINE (test code = 3210) NEGATIVE METHADONE (test code = 3207) NEGATIVE BUPRENORPHINE (test code = 41920) NEGATIVE SOURCE (test code = 516821) URINE Peter LoftonVARICELLA ZOSTER [id number] 00:00:00* Test Item Value Reference Range Interpretation Comme michael VARICELLA ZOSTER IgG (test c ode = 45479) >2000 INDEX Peter LoftonHEPATITIS C REFLEX [id number] 00:00:00* Test Item Value Reference Range Interpretation Comme michael HEPATITIS C ANTIBODY (test c ode = 4675) NON-REACTIVE Peter LoftonGLUCOSE, 1 HR, GESTATIONAL SCREEN, 50 GM [id number] 00:00:00 * Test Item Value Reference Range Interpretation Comme michael GLUCOSE 1 HR POST 50 GM (raghavendra t code = 2005) 121 MG/DL Peter LoftonTRICHOMONAS, URINE, [id number] 00:00:00* Test Item Value Reference Range Interpretation Comme nts TRICHOMONAS, NAAT, URINE (te st code = 91923) NEGATIVE Peter LoftonCT/NG, TMA, [id number] 00:00:00* Test Item Value Reference Range Interpretation Comme nts CHLAMYDIA, NAAT, URINE (test code = 97363) NEGATIVE GONORRHEA, NAAT, URINE (test code = 19331) NEGATIVE Peter LoftonOBSTETRIC PANEL + [id number] 00:00:00* Test Item Value Reference Range Interpretation [...] K/UL ABS NUCLEATED RBCS (test code = 01462) 0.00 K/UL BLOOD TYPE AND RH (test code = 3901) O POSITIVE ANTIBODY SCREEN (test code = 3902) NEGATIVE RUBELLA ANTIBODY SCREEN (test code = 4600) 379 IU/ML RUBELLA IgG INTERP (test code = 75331) REACTIVE HEPATITIS B SURF AG (test code = 2739) NON-REACTIVE RPR (test code = 81402) NON-REACTIVE RPR TITER (test code = 3500) NOT INDIC. TITER HIV 1/2 4TH GEN, RFLX CONF (test code = 3514) NON-REACTIVE Peter LoftonDRUG ABUSE PANEL 10 WITH [id number] 00:00:00* Test Item Value Reference Range Interpretation Comme nts AMPHETAMINES (test code = 3201) NEGATIVE BARBITURATES (test code = 3202) NEGATIVE BENZODIAZEPINES (test code = 3203) NEGATIVE CANNABINOIDS (test code = 3204) NEGATIVE COCAINE METABOLITE (test cod e = 3205) NEGATIVE OPIATES (test code = 3209) NEGATIVE OXYCODONE (test code = 16337) NEGATIVE PHENCYCLIDINE (test code = 3210) NEGATIVE METHADONE (test code = 3207) NEGATIVE BUPRENORPHINE (test code = 40466) NEGATIVE SOURCE (test code = 039057) URINE Peter LoftonVARICELLA ZOSTER [id number] 00:00:00* Test Item Value Reference Range Interpretation Comme nts VARICELLA ZOSTER IgG (test c ode = 77862) >2000 INDEX Peter LoftonHEPATITIS C REFLEX [id number] 00:00:00* Test Item Value Reference Range Interpretation Comme nts HEPATITIS C ANTIBODY (test c ode = 3560) NON-REACTIVE Peter LoftonGLUCOSE, 1 HR, GESTATIONAL SCREEN, 50 GM [id number] 00:00:00 * Test Item Value Reference Range Interpretation Comme nts GLUCOSE 1 HR POST 50 GM (raghavendra t code = 2005) 121 MG/DL Peter LoftonTRICHOMONAS, URINE, [id number] 00:00:00* Test Item Value Reference Range Interpretation Comme nts TRICHOMONAS, NAAT, URINE (te st code = 51804) NEGATIVE Peter LoftonCT/NG, TMA, [id number] 00:00:00* Test Item Value Reference Range Interpretation Comme nts CHLAMYDIA, NAAT, URINE (test code = 05928) NEGATIVE GONORRHEA, NAAT, URINE (test code = 36435) NEGATIVE Peter LoftonOBSTETRIC PANEL + [id number] 00:00:00* Test Item Value Reference Range Interpretation [...] K/UL ABS NUCLEATED RBCS (test code = 53203) 0.00 K/UL BLOOD TYPE AND RH (test code = 3901) O POSITIVE ANTIBODY SCREEN (test code = 3902) NEGATIVE RUBELLA ANTIBODY SCREEN (test code = 4600) 379 IU/ML RUBELLA IgG INTERP (test code = 34809) REACTIVE HEPATITIS B SURF AG (test code = 2739) NON-REACTIVE RPR (test code = 03866) NON-REACTIVE RPR TITER (test code = 3500) NOT INDIC. TITER HIV 1/2 4TH GEN, RFLX CONF (test code = 3514) NON-REACTIVE Peter LoftonDRUG ABUSE PANEL 10 WITH [id number] 00:00:00* Test Item Value Reference Range Interpretation Comme nts AMPHETAMINES (test code = 3201) NEGATIVE BARBITURATES (test code = 3202) NEGATIVE BENZODIAZEPINES (test code = 3203) NEGATIVE CANNABINOIDS (test code = 3204) NEGATIVE COCAINE METABOLITE (test cod e = 3205) NEGATIVE OPIATES (test code = 3209) NEGATIVE OXYCODONE (test code = 19149) NEGATIVE PHENCYCLIDINE (test code = 3210) NEGATIVE METHADONE (test code = 3207) NEGATIVE BUPRENORPHINE (test code = 89663) NEGATIVE SOURCE (test code = 199394) URINE Peter LoftonVARICELLA ZOSTER [id number] 00:00:00* Test Item Value Reference Range Interpretation Comme nts VARICELLA ZOSTER IgG (test c ode = 51980) >2000 INDEX Peter LoftonHEPATITIS C REFLEX [id number] 00:00:00* Test Item Value Reference Range Interpretation Comme nts HEPATITIS C ANTIBODY (test c ode = 4675) NON-REACTIVE Peter LoftonGLUCOSE, 1 HR, GESTATIONAL SCREEN, 50 GM [id number] 00:00:00 * Test Item Value Reference Range Interpretation Comme nts GLUCOSE 1 HR POST 50 GM (raghavendra t code = 2005) 121 MG/DL Peter LoftonTRICHOMONAS, URINE, [id number] 00:00:00* Test Item Value Reference Range Interpretation Comme nts TRICHOMONAS, NAAT, URINE (te st code = 58154) NEGATIVE Peter LoftonCT/NG, TMA, [id number] 00:00:00* Test Item Value Reference Range Interpretation Comme nts CHLAMYDIA, NAAT, URINE (test code = 94752) NEGATIVE GONORRHEA, NAAT, URINE (test code = 19094) NEGATIVE Peter LofotnOBSTETRIC PANEL + [id number] 00:00:00* Test Item Value Reference Range Interpretation [...] K/UL ABS NUCLEATED RBCS (test code = 64003) 0.00 K/UL BLOOD TYPE AND RH (test code = 3901) O POSITIVE ANTIBODY SCREEN (test code = 3902) NEGATIVE RUBELLA ANTIBODY SCREEN (test code = 4600) 379 IU/ML RUBELLA IgG INTERP (test code = 81179) REACTIVE HEPATITIS B SURF AG (test code = 7279) NON-REACTIVE RPR (test code = 26887) NON-REACTIVE RPR TITER (test code = 3500) NOT INDIC. TITER HIV 1/2 4TH GEN, RFLX CONF (test code = 3514) NON-REACTIVE Peter LoftonDRUG ABUSE PANEL 10 WITH [id number] 00:00:00* Test Item Value Reference Range Interpretation Comme nts AMPHETAMINES (test code = 3201) NEGATIVE BARBITURATES (test code = 3202) NEGATIVE BENZODIAZEPINES (test code = 3203) NEGATIVE CANNABINOIDS (test code = 3204) NEGATIVE COCAINE METABOLITE (test cod e = 3205) NEGATIVE OPIATES (test code = 3209) NEGATIVE OXYCODONE (test code = 69234) NEGATIVE PHENCYCLIDINE (test code = 3210) NEGATIVE METHADONE (test code = 3207) NEGATIVE BUPRENORPHINE (test code = 15887) NEGATIVE SOURCE (test code = 759911) URINE Peter LoftonVARICELLA ZOSTER [id number] 00:00:00* Test Item Value Reference Range Interpretation Comme michael VARICELLA ZOSTER IgG (test c ode = 43959) >2000 INDEX Peter LoftonHEPATITIS C REFLEX [id number] 00:00:00* Test Item Value Reference Range Interpretation Comme nts HEPATITIS C ANTIBODY (test c ode = 4675) NON-REACTIVE Peter LoftonGLUCOSE, 1 HR, GESTATIONAL SCREEN, 50 GM [id number] 00:00:00 * Test Item Value Reference Range Interpretation Comme nts GLUCOSE 1 HR POST 50 GM (raghavendra t code = 2005) 121 MG/DL Peter LoftonTRICHOMONAS, URINE, [id number] 00:00:00* Test Item Value Reference Range Interpretation Comme nts TRICHOMONAS, NAAT, URINE (te st code = 14403) NEGATIVE Peter LoftonCT/NG, TMA, [id number] 00:00:00* Test Item Value Reference Range Interpretation Comme nts CHLAMYDIA, NAAT, URINE (test code = 65859) NEGATIVE GONORRHEA, NAAT, URINE (test code = 34319) NEGATIVE Peter LoftonOBSTETRIC PANEL + [id number] 00:00:00* Test Item Value Reference Range Interpretation [...] K/UL ABS NUCLEATED RBCS (test code = 73873) 0.00 K/UL BLOOD TYPE AND RH (test code = 3901) O POSITIVE ANTIBODY SCREEN (test code = 3902) NEGATIVE RUBELLA ANTIBODY SCREEN (test code = 4600) 379 IU/ML RUBELLA IgG INTERP (test code = 38940) REACTIVE HEPATITIS B SURF AG (test code = 2739) NON-REACTIVE RPR (test code = 97456) NON-REACTIVE RPR TITER (test code = 3500) NOT INDIC. TITER HIV 1/2 4TH GEN, RFLX CONF (test code = 3514) NON-REACTIVE Peter Romero DarlingtonDRUG ABUSE PANEL 10 WITH [id number] 00:00:00* Test Item Value Reference Range Interpretation Comme nts AMPHETAMINES (test code = 3201) NEGATIVE BARBITURATES (test code = 3202) NEGATIVE BENZODIAZEPINES (test code = 3203) NEGATIVE CANNABINOIDS (test code = 3204) NEGATIVE COCAINE METABOLITE (test cod e = 3205) NEGATIVE OPIATES (test code = 3209) NEGATIVE OXYCODONE (test code = 91695) NEGATIVE PHENCYCLIDINE (test code = 3210) NEGATIVE METHADONE (test code = 3207) NEGATIVE BUPRENORPHINE (test code = 15447) NEGATIVE SOURCE (test code = 301454) URINE Peter LoftonVARICELLA ZOSTER [id number] 00:00:00* Test Item Value Reference Range Interpretation Comme michael VARICELLA ZOSTER IgG (test c ode = 17292) >2000 INDEX Peter LoftonHEPATITIS C REFLEX [id number] 00:00:00* Test Item Value Reference Range Interpretation Comme nts HEPATITIS C ANTIBODY (test c ode = 4675) NON-REACTIVE Peter LoftonGLUCOSE, 1 HR, GESTATIONAL SCREEN, 50 GM [id number] 00:00:00 * Test Item Value Reference Range Interpretation Comme michael GLUCOSE 1 HR POST 50 GM (raghavendra t code = 2005) 121 MG/DL Peter LoftonTRICHOMONAS, URINE, [id number] 00:00:00* Test Item Value Reference Range Interpretation Comme nts TRICHOMONAS, NAAT, URINE (te st code = 06682) NEGATIVE Peter LoftonCT/NG, TMA, [id number] 00:00:00* Test Item Value Reference Range Interpretation Comme nts CHLAMYDIA, NAAT, URINE (test code = 00249) NEGATIVE GONORRHEA, NAAT, URINE (test code = 87196) NEGATIVE Peter LoftonOBSTETRIC PANEL + [id number] 00:00:00* Test Item Value Reference Range Interpretation [...] K/UL ABS NUCLEATED RBCS (test code = 04865) 0.00 K/UL BLOOD TYPE AND RH (test code = 3901) O POSITIVE ANTIBODY SCREEN (test code = 3902) NEGATIVE RUBELLA ANTIBODY SCREEN (test code = 4600) 379 IU/ML RUBELLA IgG INTERP (test code = 40023) REACTIVE HEPATITIS B SURF AG (test code = 2739) NON-REACTIVE RPR (test code = 58379) NON-REACTIVE RPR TITER (test code = 3500) NOT INDIC. TITER HIV 1/2 4TH GEN, RFLX CONF (test code = 3514) NON-REACTIVE Peter LoftonDRUG ABUSE PANEL 10 WITH [id number] 00:00:00* Test Item Value Reference Range Interpretation Comme nts AMPHETAMINES (test code = 3201) NEGATIVE BARBITURATES (test code = 3202) NEGATIVE BENZODIAZEPINES (test code = 3203) NEGATIVE CANNABINOIDS (test code = 3204) NEGATIVE COCAINE METABOLITE (test cod e = 3205) NEGATIVE OPIATES (test code = 3209) NEGATIVE OXYCODONE (test code = 91783) NEGATIVE PHENCYCLIDINE (test code = 3210) NEGATIVE METHADONE (test code = 3207) NEGATIVE BUPRENORPHINE (test code = 76570) NEGATIVE SOURCE (test code = 859706) URINE Peter LoftonVARICELLA ZOSTER [id number] 00:00:00* Test Item Value Reference Range Interpretation Comme nts VARICELLA ZOSTER IgG (test c ode = 39146) >2000 INDEX Peter LoftonHEPATITIS C REFLEX [id number] 00:00:00* Test Item Value Reference Range Interpretation Comme nts HEPATITIS C ANTIBODY (test c ode = 4675) NON-REACTIVE Peter LoftonGLUCOSE, 1 HR, GESTATIONAL SCREEN, 50 GM [id number] 00:00:00 * Test Item Value Reference Range Interpretation Comme nts GLUCOSE 1 HR POST 50 GM (raghavendra t code = 2006) 121 MG/DL Peter LoftonTRICHOMONAS, URINE, [id number] 00:00:00* Test Item Value Reference Range Interpretation Comme nts TRICHOMONAS, NAAT, URINE (te st code = 96539) NEGATIVE Peter LoftonCT/NG, TMA, [id number] 00:00:00* Test Item Value Reference Range Interpretation Comme nts CHLAMYDIA, NAAT, URINE (test code = 13130) NEGATIVE GONORRHEA, NAAT, URINE (test code = 29080) NEGATIVE Pteer LoftonOBSTETRIC PANEL + [id number] 00:00:00* Test Item Value Reference Range Interpretation [...] K/UL ABS NUCLEATED RBCS (test code = 34973) 0.00 K/UL BLOOD TYPE AND RH (test code = 3901) O POSITIVE ANTIBODY SCREEN (test code = 3902) NEGATIVE RUBELLA ANTIBODY SCREEN (test code = 4600) 379 IU/ML RUBELLA IgG INTERP (test code = 21601) REACTIVE HEPATITIS B SURF AG (test code = 2739) NON-REACTIVE RPR (test code = 92974) NON-REACTIVE RPR TITER (test code = 3500) NOT INDIC. TITER HIV 1/2 4TH GEN, RFLX CONF (test code = 3514) NON-REACTIVE Peter LoftonDRUG ABUSE PANEL 10 WITH [id number] 00:00:00* Test Item Value Reference Range Interpretation Comme nts AMPHETAMINES (test code = 3201) NEGATIVE BARBITURATES (test code = 3202) NEGATIVE BENZODIAZEPINES (test code = 3203) NEGATIVE CANNABINOIDS (test code = 3204) NEGATIVE COCAINE METABOLITE (test cod e = 3205) NEGATIVE OPIATES (test code = 3209) NEGATIVE OXYCODONE (test code = 11556) NEGATIVE PHENCYCLIDINE (test code = 3210) NEGATIVE METHADONE (test code = 3207) NEGATIVE BUPRENORPHINE (test code = 08873) NEGATIVE SOURCE (test code = 113987) URINE Peter LoftonVARICELLA ZOSTER [id number] 00:00:00* Test Item Value Reference Range Interpretation Comme nts VARICELLA ZOSTER IgG (test c ode = 48079) >2000 INDEX Peter LoftonHEPATITIS C REFLEX [id number] 00:00:00* Test Item Value Reference Range Interpretation Comme nts HEPATITIS C ANTIBODY (test c ode = 4675) NON-REACTIVE Peter LoftonGLUCOSE, 1 HR, GESTATIONAL SCREEN, 50 GM [id number] 00:00:00 * Test Item Value Reference Range Interpretation Comme nts GLUCOSE 1 HR POST 50 GM (raghavendra t code = 2005) 121 MG/DL Peter LoftonTRICHOMONAS, URINE, [id number] 00:00:00* Test Item Value Reference Range Interpretation Comme nts TRICHOMONAS, NAAT, URINE (te st code = 47237) NEGATIVE Peter LoftonCT/NG, TMA, [id number] 00:00:00* Test Item Value Reference Range Interpretation Comme nts CHLAMYDIA, NAAT, URINE (test code = 18231) NEGATIVE GONORRHEA, NAAT, URINE (test code = 41930) NEGATIVE Peter LoftonOBSTETRIC PANEL + [id number] 00:00:00* Test Item Value Reference Range Interpretation [...] K/UL ABS NUCLEATED RBCS (test code = 09688) 0.00 K/UL BLOOD TYPE AND RH (test code = 3901) O POSITIVE ANTIBODY SCREEN (test code = 3902) NEGATIVE RUBELLA ANTIBODY SCREEN (test code = 4600) 379 IU/ML RUBELLA IgG INTERP (test code = 34043) REACTIVE HEPATITIS B SURF AG (test code = 2739) NON-REACTIVE RPR (test code = 37791) NON-REACTIVE RPR TITER (test code = 3500) NOT INDIC. TITER HIV 1/2 4TH GEN, RFLX CONF (test code = 3514) NON-REACTIVE Peter LoftonDRUG ABUSE PANEL 10 WITH [id number] 00:00:00* Test Item Value Reference Range Interpretation Comme nts AMPHETAMINES (test code = 3201) NEGATIVE BARBITURATES (test code = 3202) NEGATIVE BENZODIAZEPINES (test code = 3203) NEGATIVE CANNABINOIDS (test code = 3204) NEGATIVE COCAINE METABOLITE (test cod e = 3205) NEGATIVE OPIATES (test code = 3209) NEGATIVE OXYCODONE (test code = 26271) NEGATIVE PHENCYCLIDINE (test code = 3210) NEGATIVE METHADONE (test code = 3207) NEGATIVE BUPRENORPHINE (test code = 29689) NEGATIVE SOURCE (test code = 540949) URINE Peter LoftonVARICELLA ZOSTER [id number] 00:00:00* Test Item Value Reference Range Interpretation Comme michael VARICELLA ZOSTER IgG (test c ode = 62452) >2000 INDEX Peter LoftonHEPATITIS C REFLEX [id number] 00:00:00* Test Item Value Reference Range Interpretation Comme michael HEPATITIS C ANTIBODY (test c ode = 4675) NON-REACTIVE Peter LoftonGLUCOSE, 1 HR, GESTATIONAL SCREEN, 50 GM [id number] 00:00:00 * Test Item Value Reference Range Interpretation Comme nts GLUCOSE 1 HR POST 50 GM (raghavendra t code = 2006) 121 MG/DL Peter LoftonTRICHOMONAS, URINE, [id number] 00:00:00* Test Item Value Reference Range Interpretation Comme nts TRICHOMONAS, NAAT, URINE (te st code = 49784) NEGATIVE Peter LoftonCT/NG, TMA, [id number] 00:00:00* Test Item Value Reference Range Interpretation Comme nts CHLAMYDIA, NAAT, URINE (test code = 85086) NEGATIVE GONORRHEA, NAAT, URINE (test code = 31873) NEGATIVE Peter LoftonOBSTETRIC PANEL + [id number] 00:00:00* Test Item Value Reference Range Interpretation [...] K/UL ABS NUCLEATED RBCS (test code = 61726) 0.00 K/UL BLOOD TYPE AND RH (test code = 3901) O POSITIVE ANTIBODY SCREEN (test code = 3902) NEGATIVE RUBELLA ANTIBODY SCREEN (test code = 4600) 379 IU/ML RUBELLA IgG INTERP (test code = 38187) REACTIVE HEPATITIS B SURF AG (test code = 2739) NON-REACTIVE RPR (test code = 09771) NON-REACTIVE RPR TITER (test code = 3500) NOT INDIC. TITER HIV 1/2 4TH GEN, RFLX CONF (test code = 3514) NON-REACTIVE Peter LoftonDRUG ABUSE PANEL 10 WITH [id number] 00:00:00* Test Item Value Reference Range Interpretation Comme nts AMPHETAMINES (test code = 3201) NEGATIVE BARBITURATES (test code = 3202) NEGATIVE BENZODIAZEPINES (test code = 3203) NEGATIVE CANNABINOIDS (test code = 3204) NEGATIVE COCAINE METABOLITE (test cod e = 3205) NEGATIVE OPIATES (test code = 3209) NEGATIVE OXYCODONE (test code = 65203) NEGATIVE PHENCYCLIDINE (test code = 3210) NEGATIVE METHADONE (test code = 3207) NEGATIVE BUPRENORPHINE (test code = 66181) NEGATIVE SOURCE (test code = 575153) URINE Peter LoftonVINIA ZOSTER [id number] 00:00:00* Test Item Value Reference Range Interpretation Comme nts VARICELLA ZOSTER IgG (test c ode = 40040) >2000 INDEX Peter LoftonHEPATITIS C REFLEX [id number] 00:00:00* Test Item Value Reference Range Interpretation Comme nts HEPATITIS C ANTIBODY (test c ode = 2310) NON-REACTIVE Peter LoftonGLUCOSE, 1 HR, GESTATIONAL SCREEN, 50 GM [id number] 00:00:00 * Test Item Value Reference Range Interpretation Comme nts GLUCOSE 1 HR POST 50 GM (raghavendra t code = 2006) 121 MG/DL Peter LoftonTRICHOMONAS, URINE, [id number] 00:00:00* Test Item Value Reference Range Interpretation Comme nts TRICHOMONAS, NAAT, URINE (te st code = 33244) NEGATIVE Peter LoftonPOCT [id number] 15:49:00* Test Item Value Reference Range Interpretation Comme nts POCT PREG (test code = 1605) Positive On board controls acceptable with C Line (test code = 3574) Yes POCT PREG LOT # (test code = 3575) POCT PREG TEST DATE ( test code = 3576) [facility] [id number] 15:40:00* Test Item Value Reference Range Interpretation Comme nts POCT PREG (test code = 1605) Positive On board controls acceptable with C Line (test code = 3574) Yes POCT PREG LOT # (test code = 3575) POCT PREG TEST DATE ( test code = 3576) Lab Interpretation (test cod e = 02139-6) [facility]normal [facility] AG-AB WITH [id number] 11:31:52* Test Item Value Reference Range Interpretation Comme nts HIV Semi-quantitative (test code = 49166-9) Negative Negative ASHLEE (test code = ASHLEE) Non-reactive for HIV-1 antigen and HIV-1/HIV-2 antibodies. ?No laboratory evidence of HIV infection. ?Repeat in 2-4 weeks if acute HIV infection is suspected. [facility] BrookPRENATAL WORKUP, BLOOD [id number] 10:13:07 * Test Item Value Reference Range Interpretation Comme nts ABO & RH (test code = 20) O POSITIVE Performed at [facility] B Laboratory Services - [facility] Blood [address] [place] [address]Bytc Free: [phone] No. [id number] IAT (test code = 1185) Negative Performed at [facility] B Laboratory Services - [facility] Blood [address] [address]Vrcx Free: [phone] No. [id number] [facility] Brook[facility]CV [id number] 08:18:32* Test Item Value Reference Range Interpretation Comme nts HCV Ab (test code = 37275-1) Negative HCV Semi-Quantitative (test code = 85860-7) [facility] BrookHEPAT[facility]IS B SURFACE [id number] 08:01:30 * Test Item Value Reference Range Interpretation Comme nts HBsAg Semi-Quantitative (raghavendra t code = 5195-3) Negative [facility] [id number] 07:56:47* Test Item Value Reference Range Interpretation Comme nts BETA HCG (test code = 5023904626) See_Comment [Automated [employer] ge] The system which generated this result transmitted reference range: Non- female and male patients: <5 mIU/mL. The reference range was not used to interpret this result as normal/abnormal. ASHLEE (test code = ASHLEE) Gestational Age ?Range (mIU/mL) 1-10 ?Weeks ?[id number] Weeks ?22944-88765024-26 Weeks ?0694-64546942-76 Weeks ?5319-840752 Biotin has been reported to cause a negative bias, interpret results relative to patient's use of biotin. [facility] WITH [id number] 06:34:02* Test Item Value Reference Range Interpretation Comme nts WBC (test code = 6690-2) See_Comment [Automated [employer] ge] The system which generated this result transmitted reference range: 4.30 - 11.10 10*3/?L. The reference range was not used to interpret this result as normal/abnormal. RBC (test code = 789-8) See_Comment [Automated [employer] ge] The system which generated this result [...] g/dL 31.6-35.1 L RDW-SD (test code = 75451-2) 48.1 fL 39.0-49.9 RDW-CV (test code = 788-0) 17.2 % 12.0-15.5 H PLT (test code = 777-3) See_Comment [Automated [employer] ge] The system which generated this result transmitted reference range: 166 - 358 10*3/?L. The reference range was not used to interpret this result as normal/abnormal. MPV (test code = 92144-0) 11.3 fL 9.5-12.9 NRBC/100 WBC (test code = 1787823684) See_Comment [Automated [employer] ssage] The system which generated this result transmitted reference range: 0.0 - 10.0 /100 WBCs. The reference range was not used to interpret this result as normal/abnormal. NRBC x10^3 (test code = 9121850879) See_Comment [Automated [employer] ge] The system which generated this result transmitted reference range: 10*3/?L. The reference range was not used to interpret this result as normal/abnormal. GRAN MAT (NEUT) % (test code = 770-8) 70.4 % IMM GRAN % (test code = 7311650122) 0.60 % LYMPH % (test code = 736-9) 21.6 % MONO % (test code = 5905-5) 5.7 % EOS % (test code = 713-8) 1.1 % BASO % (test code = 706-2) 0.6 % GRAN MAT x10^3(ANC) (test code = 9475865243) 7.10 10*3/uL 1.88-7.09 H IMM GRAN x10^3 (test code = 6472044639) 0.06 10*3/uL 0.00-0.06 LYMPH x10^3 (test code = 731-0) 2.18 10*3/uL 1.32-3.29 MONO x10^3 (test code = 742-7) 0.57 10*3/uL 0.33-0.92 EOS x10^3 (test code = 711-2) 0.11 10*3/uL 0.03-0.39 BASO x10^3 (test code = 704-7) 0.06 10*3/uL 0.01-0.07 Lab Interpretation (test code = 17890-6) Abnormal [facility] URINALYSIS W/O SPECIFIC [id number] 20:30:00* Test Item Value Reference Range Interpretation [...] = 3257) Large Negative - Negati ve [facility] URINALYSIS W/O SPECIFIC [id number] 20:30:00* Test Item Value Reference Range Interpretation [...] = 3257) Large Negative - Negati ve [facility] [id number] 20:29:00* Test Item Value Reference Range Interpretation Comme nts POCT PREG (test code = 1605) Positive On board controls acceptable with C Line (test code = 3574) Yes POCT PREG LOT # (test code = 3575) POCT PREG TEST DATE ( test code = 3576) [facility] [id number] 20:29:00* Test Item Value Reference Range Interpretation Comme nts POCT PREG (test code = 1605) Positive On board controls acceptable with C Line (test code = 3574) Yes POCT PREG LOT # (test code = 3575) POCT PREG TEST DATE ( test code = 3576) [facility] BrookTOTAL BHCG (QUANTITATIVE)2022-09-20 17:15:40* Test Item Value Reference Range Interpretation Comme nts BETA HCG (test code = 4558400322) See_Comment [Automated messa ge] The system which generated this result transmitted reference range: Non- female and male patients: <5 mIU/mL. The reference range was not used to interpret this result as normal/abnormal. ASHLEE (test code = ASHLEE) Gestational Age ?Range (mIU/mL) 1-10 ?Weeks ?[phone] Weeks ?41249-45691425-22 Weeks ?0518-86054731-49 Weeks ?0613-846255 Biotin has been reported to cause a negative bias, interpret results relative to patient's use of biotin. [facility] BrookPREGNANCY TEST, [id number] 16:16:57* Test Item Value Reference Range Interpretation Comme nts PREG SERUM (test code = 6728541012) Positive ASHLEE (test code = ASHLEE) Positive greater t lewis or equal to 10 IU/L hCG. [facility] BrookACTIVATED PARTIAL THRMPLAS [id number] 16:14:06* Test Item Value Reference Range Interpretation Comme nts APTT Patient (test code = 3173-2) See_Comment [Automated message] The system which generated this result transmitted reference range: 23 - 38 Seconds. The reference range was not used to interpret this result as normal/abnormal. ASHLEE (test code = ASHLEE) The [facility] patient population mean normal value for aPTT is 30 seconds. Lab Interpretation (test code = 91888-0) Normal [facility] BrookPROTHROMBIN TIME / [id number] 16:12:09* Test Item Value Reference Range Interpretation Comme nts PROTIME PATIENT (test code = 5964-2) See_Comment [Automated [employer] ge] The system which generated this result transmitted reference range: 12.0 - 14.7 Seconds. The reference range was not used to interpret this result as normal/abnormal. INR (test code = 6301-6) Normal INR <1.1; Warfarin Therapeutic range 2.0 to 3.0 or 2.5 to 3.5, depending upon the indications. Lab Interpretation (test code = 78788-3) Normal [facility] BrookCOMP. METABOLIC PANEL (76106)2022-09-20 15:58:03* Test Item Value Reference Range Interpretation Comme nts NA (test code = 1330863548) 136 mmol/L 135-145 K (test code = 7622811177) 4.1 mmol/L 3.5-5.0 CL (test code = 9714525428) 102 mmol/L 98-108 CO2 TOTAL (test code = 0389816111) 25 mmol/L 23-31 AGAP (test code = 9476302696) 2-16 BUN (test code = 5979415470) 9 mg/dL 7-23 GLUCOSE (test code = 6866867981) 94 mg/dL 70-110 CREATININE (test code = 3119132580) 0.48 mg/dL 0.50-1.04 L TOTAL BILI (test code = 6385055042) 0.4 mg/dL 0.1-1.1 CALCIUM (test code = 0978540362) 8.8 mg/dL 8.6-10.6 T PROTEIN (test code = 0363357298) 7.4 g/dL 6.3-8.2 ALBUMIN (test code = 6798424572) 4.5 g/dL 3.5-5.0 ALK PHOS (test code = 3059193427) 77 U/L 34-122 ALTv (test code = 1742-6) 15 U/L 5-35 AST(SGOT) (test code = 9009931530) 19 U/L 13-40 eGFR (test code = 8601781440) mL/min/1.73m2 ASHLEE (test code = ASHLEE) Association [...] imaging tests). Lab Interpretation (test code = 26923-0) Abnormal [facility] BrookLIPASE2023-01-[facility] 15:58:03* Test Item Value Reference Range Interpretation Comme nts LIPASE (test code = 1445236358) 74 U/L 0-220 Lab Interpretation (test cod e = 56233-3) Normal [facility] BrookCB WITH [id number] 15:56:47* Test Item Value Reference Range Interpretation Comme nts WBC (test code = 6690-2) See_Comment [Automated [employer]] The system which generated this result transmitted [...] g/dL 31.6-35.1 L RDW-SD (test code = 49306-3) 47.3 fL 39.0-49.9 RDW-CV (test code = 788-0) 17.0 % 12.0-15.5 H PLT (test code = 777-3) See_Comment [Automated [employer] ge] The system which generated this result transmitted reference range: 166 - 358 10*3/?L. The reference range was not used to interpret this result as normal/abnormal. MPV (test code = 61020-8) 10.5 fL 9.5-12.9 NRBC/100 WBC (test code = 2295357741) See_Comment [Automated [employer] ssage] The system which generated this result transmitted reference range: 0.0 - 10.0 /100 WBCs. The reference range was not used to interpret this result as normal/abnormal. NRBC x10^3 (test code = 2495758690) See_Comment [Automated [employer] ge] The system which generated this result transmitted reference range: 10*3/?L. The reference range was not used to interpret this result as normal/abnormal. GRAN MAT (NEUT) % (test code = 770-8) 58.6 % IMM GRAN % (test code = 5992590022) 0.80 % LYMPH % (test code = 736-9) 30.9 % MONO % (test code = 5905-5) 6.6 % EOS % (test code = 713-8) 2.4 % BASO % (test code = 706-2) 0.7 % GRAN MAT x10^3(ANC) (test code = 5025422365) 5.29 10*3/uL 1.88-7.09 IMM GRAN x10^3 (test code = 1902008079) 0.07 10*3/uL 0.00-0.06 H LYMPH x10^3 (test code = 731-0) 2.79 10*3/uL 1.32-3.29 MONO x10^3 (test code = 742-7) 0.60 10*3/uL 0.33-0.92 EOS x10^3 (test code = 711-2) 0.22 10*3/uL 0.03-0.39 BASO x10^3 (test code = 704-7) 0.06 10*3/uL 0.01-0.07 Lab Interpretation (test code = 45460-3) [facility] WITH [id number] 23:41:07* Test Item Value Reference Range Interpretation Comme nts WBC (test code = 6690-2) See_Comment [Automated [employer] ge] The system which generated this result transmitted reference range: 4.30 - 11.10 10*3/?L. The reference range was not used to interpret this result as normal/abnormal. RBC (test code = 789-8) See_Comment [Automated [employer] ge] The system which generated this result [...] g/dL 31.6-35.1 L RDW-SD (test code = 92165-6) 40.8 fL 39.0-49.9 RDW-CV (test code = 788-0) 15.0 % 12.0-15.5 PLT (test code = 777-3) See_Comment H [Automated messa ge] The system which generated this result transmitted reference range: 166 - 358 10*3/?L. The reference range was not used to interpret this result as normal/abnormal. MPV (test code = 57417-3) 10.5 fL 9.5-12.9 NRBC/100 WBC (test code = 8916719862) See_Comment [Automated [employer] ssage] The system which generated this result transmitted reference range: 0.0 - 10.0 /100 WBCs. The reference range was not used to interpret this result as normal/abnormal. NRBC x10^3 (test code = 1727645780) <0.01 See_Comment [Automated messa ge] The system which generated this result transmitted reference range: 10*3/?L. The reference range was not used to interpret this result as normal/abnormal. GRAN MAT (NEUT) % (test code = 770-8) 83.2 % IMM GRAN % (test code = 7345784135) 0.60 % LYMPH % (test code = 736-9) 8.5 % MONO % (test code = 5905-5) 6.6 % EOS % (test code = 713-8) 0.8 % BASO % (test code = 706-2) 0.3 % GRAN MAT x10^3(ANC) (test code = 9953116469) 7.73 10*3/uL 1.88-7.09 H IMM GRAN x10^3 (test code = 2373716996) 0.06 10*3/uL 0.00-0.06 LYMPH x10^3 (test code = 731-0) 0.79 10*3/uL 1.32-3.29 L MONO x10^3 (test code = 742-7) 0.61 10*3/uL 0.33-0.92 EOS x10^3 (test code = 711-2) 0.07 10*3/uL 0.03-0.39 BASO x10^3 (test code = 704-7) 0.03 10*3/uL 0.01-0.07 Lab Interpretation (test code = 54038-9) [facility]normal [facility] BrookCOMP. METABOLIC PANEL (31085)2021-11-09 23:32:45* Test Item Value Reference Range Interpretation Comme nts NA (test code = 1644678723) 135 mmol/L 135-145 K (test code = 5169397260) 4.3 mmol/L 3.5-5.0 CL (test code = 5281267974) 100 mmol/L 98-108 CO2 TOTAL (test code = 9440368315) 26 mmol/L 23-31 AGAP (test code = 5380243790) 2-16 BUN (test code = 8802736704) 8 mg/dL 7-23 GLUCOSE (test code = 6749099393) 98 mg/dL 70-110 CREATININE (test code = 3487451511) 0.56 mg/dL 0.50-1.04 TOTAL BILI (test code = 2226840026) 0.5 mg/dL 0.1-1.1 CALCIUM (test code = 2439209166) 8.7 mg/dL 8.6-10.6 T PROTEIN (test code = 5492669902) 7.7 g/dL 6.3-8.2 ALBUMIN (test code = 8391030444) 4.7 g/dL 3.5-5.0 ALK PHOS (test code = 3222220840) 82 U/L 34-122 ALTv (test code = 1742-6) 14 U/L 5-35 AST(SGOT) (test code = 6325767202) 34 U/L 13-40 eGFR (test code = 0838305884) mL/min/1.73m2 ASHLEE (test code = ASHLEE) Association [...] or urine or abnormalities in imaging tests). [facility] 23:32:25* Test Item Value Reference Range Interpretation Comme nts LIPASE (test code = 2896834742) 70 U/L 0-220 Lab Interpretation (test cod e = 40527-9) Normal [facility] BrookPOCT [id number] 23:21:00* Test Item Value Reference Range Interpretation Comme nts POCT PREG (test code = 1605) NEGATIVE On board controls acceptable with C Line (test code = 3574) PRESENT POCT PREG LOT # (test code = 3575) [id number] POCT PREG TEST DATE ( test code = 3576) Lab Interpretation (test cod e = 95497-4) Normal [facility] BrookBASIC METABOLIC PANEL (NA, K, CL, CO2, GLUCOSE, BUN, CREATININE, CA)2021-01-29 11:56:16* Test Item Value Reference Range Interpretation Comme nts NA (test code = 7956606631) 140 mmol/L 135-145 K (test code = 5317331738) 3.4 mmol/L 3.5-5.0 L CL (test code = 0833148750) 106 mmol/L 98-108 CO2 TOTAL (test code = 2871551582) 27 mmol/L 23-31 AGAP (test code = 2344815284) 2-16 BUN (test code = 8864552744) 12 mg/dL 7-23 GLUCOSE (test code = 8430430747) 90 mg/dL 70-110 CREATININE (test code = 5507771490) 0.88 mg/dL 0.50-1.04 CALCIUM (test code = 3564175688) 8.6 mg/dL 8.6-10.6 eGFR (test code = 4510907055) mL/min/1.73m2 ASHLEE (test code = ASHLEE) Association [...] imaging tests). Lab Interpretation (test code = 37521-5) [facility] WITH [id number] 11:26:15* Test Item Value Reference Range Interpretation Comme nts WBC (test code = 6690-2) See_Comment [Automated [employer]] The system which generated this result transmitted reference range: 4.30 - 11.10 10*3/?L. The reference range was not used to interpret this result as normal/abnormal. RBC (test code = 789-8) See_Comment L [Automated [employer] ge] The system which generated this result [...] g/dL 31.6-35.1 L RDW-SD (test code = 68657-6) 42.7 fL 39.0-49.9 RDW-CV (test code = 788-0) 14.1 % 12.0-15.5 PLT (test code = 777-3) See_Comment [Automated [employer]] The system which generated this result transmitted reference range: 166 - 358 10*3/?L. The reference range was not used to interpret this result as normal/abnormal. MPV (test code = 51654-8) 10.5 fL 9.5-12.9 NRBC/100 WBC (test code = 9279688160) See_Comment [Automated [employer] ssage] The system which generated this result transmitted reference range: 0.0 - 10.0 /100 WBCs. The reference range was not used to interpret this result as normal/abnormal. NRBC x10^3 (test code = 8024129059) <0.01 See_Comment [Automated [employer]] The system which generated this result transmitted reference range: 10*3/?L. The reference range was not used to interpret this result as normal/abnormal. GRAN MAT (NEUT) % (test code = 770-8) 68.3 % IMM GRAN % (test code = 3315659614) 0.70 % LYMPH % (test code = 736-9) 19.6 % MONO % (test code = 5905-5) 7.1 % EOS % (test code = 713-8) 3.8 % BASO % (test code = 706-2) 0.5 % GRAN MAT x10^3(ANC) (test code = 4421273982) 6.23 10*3/uL 1.88-7.09 IMM GRAN x10^3 (test code = 8155647786) 0.06 10*3/uL 0.00-0.06 LYMPH x10^3 (test code = 731-0) 1.79 10*3/uL 1.32-3.29 MONO x10^3 (test code = 742-7) 0.65 10*3/uL 0.33-0.92 EOS x10^3 (test code = 711-2) 0.35 10*3/uL 0.03-0.39 BASO x10^3 (test code = 704-7) 0.05 10*3/uL 0.01-0.07 Lab Interpretation (test code = 32336-1) [facility]normal [facility] Brook[facility]comycin Trough Level - Draw no more than 60 minutes before the 1100 dose.2021-01-29 05:02:45* Test Item Value Reference Range Interpretation Comme nts VANCO TROUGH (test code = 7779078635) 7.6 ug/mL 10.0-20.0 L ASHLEE (test code = ASHLEE) Toxic Range: ?>20 ug/mL 15-20 ug/mL is recommended for severe infection or when Vancomycin AURA is greater than or equal to 2. Lab Interpretation (test code = 84026-4) Abnormal [facility] Brook[facility]asi Metabolic Panel (NA, K, CL, CO2, GLUCOSE, BUN, CREATININE, CA)2021-01-28 11:50:40* Test Item Value Reference Range Interpretation Comme nts NA (test code = 8524480489) 138 mmol/L 135-145 K (test code = 1257161366) 4.2 mmol/L 3.5-5.0 CL (test code = 1663772391) 104 mmol/L 98-108 CO2 TOTAL (test code = 6580669821) 25 mmol/L 23-31 AGAP (test code = 3775029418) 2-16 BUN (test code = 9525326703) 7 mg/dL 7-23 GLUCOSE (test code = 0011743142) 147 mg/dL 70-110 H CREATININE (test code = 9921343956) 0.44 mg/dL 0.50-1.04 L CALCIUM (test code = 9695846832) 9.0 mg/dL 8.6-10.6 eGFR (test code = 0927852567) mL/min/1.73m2 ASHLEE (test code = ASHLEE) Association [...] imaging tests). Lab Interpretation (test code = 23547-9) Abnormal [facility] Metabolic Panel (NA, K, CL, CO2, GLUCOSE, BUN, CREATININE, CA)2021-01-28 11:50:40* Test Item Value Reference Range Interpretation Comme nts NA (test code = 0724042918) 138 mmol/L 135-145 K (test code = 6282461172) 4.2 mmol/L 3.5-5.0 CL (test code = 9620216453) 104 mmol/L 98-108 CO2 TOTAL (test code = 3145644815) 25 mmol/L 23-31 AGAP (test code = 6922573436) 2-16 BUN (test code = 4216275638) 7 mg/dL 7-23 GLUCOSE (test code = 5803369971) 147 mg/dL 70-110 H CREATININE (test code = 9827854283) 0.44 mg/dL 0.50-1.04 L CALCIUM (test code = 9540613411) 9.0 mg/dL 8.6-10.6 eGFR (test code = 4297893460) mL/min/1.73m2 ASHLEE (test code = ASHLEE) Association [...] imaging tests). Lab Interpretation (test code = 43488-2) [facility] with [id number] 11:08:37* Test Item Value Reference Range Interpretation Comme nts WBC (test code = 6690-2) See_Comment H [Automated [employer]] The system which generated this result transmitted [...] g/dL 31.6-35.1 L RDW-SD (test code = 28751-3) 41.9 fL 39.0-49.9 RDW-CV (test code = 788-0) 13.6 % 12.0-15.5 PLT (test code = 777-3) See_Comment H [Automated messa ge] The system which generated this result transmitted reference range: 166 - 358 10*3/?L. The reference range was not used to interpret this result as normal/abnormal. MPV (test code = 80689-6) 10.6 fL 9.5-12.9 NRBC/100 WBC (test code = 1808826775) See_Comment [Automated me ssage] The system which generated this result transmitted reference range: 0.0 - 10.0 /100 WBCs. The reference range was not used to interpret this result as normal/abnormal. NRBC x10^3 (test code = 7939221396) <0.01 See_Comment [Automated messa ge] The system which generated this result transmitted reference range: 10*3/?L. The reference range was not used to interpret this result as normal/abnormal. GRAN MAT (NEUT) % (test code = 770-8) 87.6 % IMM GRAN % (test code = 5706381368) 0.40 % LYMPH % (test code = 736-9) 8.8 % MONO % (test code = 5905-5) 2.8 % EOS % (test code = 713-8) 0.1 % BASO % (test code = 706-2) 0.3 % GRAN MAT x10^3(ANC) (test code = [id number]) 9.81 10*3/uL 1.88-7.09 H IMM GRAN x10^3 (test code = [id number]) 0.05 10*3/uL 0.00-0.06 LYMPH x10^3 (test code = 731-0) 0.98 10*3/uL 1.32-3.29 L MONO x10^3 (test code = 742-7) 0.31 10*3/uL 0.33-0.92 L EOS x10^3 (test code = 711-2) <0.03 0.03-0.39 L BASO x10^3 (test code = 704-7) 0.03 10*3/uL 0.01-0.07 Lab Interpretation (test code = 19269-6) [facility] [id number] 11:08:37* Test Item Value Reference Range Interpretation [...] g/dL 31.6-35.1 L RDW-SD (test code = 48218-1) 41.9 fL 39.0-49.9 RDW-CV (test code = 788-0) 13.6 % 12.0-15.5 PLT (test code = 777-3) See_Comment H [Automated messa ge] The system which generated this result transmitted reference range: 166 - 358 10*3/?L. The reference range was not used to interpret this result as normal/abnormal. MPV (test code = 75393-6) 10.6 fL 9.5-12.9 NRBC/100 WBC (test code = 0289124756) See_Comment [Automated [employer]emat[employer] ssage] The system which generated this result transmitted reference range: 0.0 - 10.0 /100 WBCs. The reference range was not used to interpret this result as normal/abnormal. NRBC x10^3 (test code = 1115417754) <0.01 See_Comment [Automated [employer] ge] The system which generated this result transmitted reference range: 10*3/?L. The reference range was not used to interpret this result as normal/abnormal. GRAN MAT (NEUT) % (test code = 770-8) 87.6 % IMM GRAN % (test code = 9573050907) 0.40 % LYMPH % (test code = 736-9) 8.8 % MONO % (test code = 5905-5) 2.8 % EOS % (test code = 713-8) 0.1 % BASO % (test code = 706-2) 0.3 % GRAN MAT x10^3(ANC) (test code = 2965995621) 9.81 10*3/uL 1.88-7.09 H IMM GRAN x10^3 (test code = 4687671930) 0.05 10*3/uL 0.00-0.06 LYMPH x10^3 (test code = 731-0) 0.98 10*3/uL 1.32-3.29 L MONO x10^3 (test code = 742-7) 0.31 10*3/uL 0.33-0.92 L EOS x10^3 (test code = 711-2) <0.03 0.03-0.39 L BASO x10^3 (test code = 704-7) 0.03 10*3/uL 0.01-0.07 Lab Interpretation (test code = 10110-6) [facility] 21:23[facility]47Gian Negrete CRNA ? ? 01/27/2021 ?4:24 PMIntubationUrgency: elective Airway not difficult General Information and Staff Patient location during procedure: ORResident/ELECTRICAL MECHANICAL TECHNICIAN: Gian Negrete CRNAPerformed:resident/ELECTRICAL MECHANICAL TECHNICIAN Indications and Patient ConditionIndications for airway management: anesthesiaSpontaneous Ventilation: absentSedation level: deepPreoxygenated: yesPatient position: sniffingMILS maintained throughoutMask difficulty assessment: 0 - not attempted Final Airway DetailsFinal airway type: supraglottic airway Successful airway: Supraglottic airway: igel.Size 3 Number of attempts at approach: 1 Additional CommentsAirway dry intactUnMemorial Hermann Greater Heights HospitalCT PELVIS W CONTRAST 2021-01-27 12:56:13A 6 cm right subcutaneous gluteal collection with layering fat, mayrepresent seroma or hematoma. However superimposed infection cannot beruled out. Clinical correlation is recommended. Preliminary Report Dictated by Resident: Cadence Thompson ?MD. Cristiane, have reviewed this study and agree with theabove report.EXAM: CT PELVIS WITH CONTRAST HISTORY: had a butt-lift surgery in [facility] 12/23/20 and that it wasfeeling fine up [...] WITH CONTRASTHISTORY: had a butt-lift surgery in [place] on 12/23/20 and that it wasfeeling fine [...] reviewed this study and agree with theabove report.[facility] PEL[facility] W [id number] 12:56:13A 6 cm right subcutaneous gluteal collection with layering fat, mayrepresent seroma or hematoma. However superimposed infection cannot beruled out. Clinical correlation is recommended. Preliminary Report Dictated by Resident: Cadence Thompson MD., have reviewed this study and agree with theabove report.EXAM: CT PELVIS WITH CONTRAST HISTORY: [place] and that it wasfeeling fine up [...] abutting the mid right gluteus prashant muscle. [facility], Radiant Results Inft User - 01/27/2021 7:57 AM CDT EXAM: CT PELVIS WITH CONTRASTHISTORY: had a butt-lift surgery in [place] on 12/23/20 and that it wasfeeling fine [...] reviewed this study and agree with theabove report.[facility] BrookHEPATIC FUNCTION PANEL (76140) (ALB,T.PRO,BILI T,BU/BC,ALT,AST,ALK PHOS)2021-01-27 06:43:32* Test Item Value Reference Range Interpretation Comme nts TOTAL BILI (test code = 5999221684) 0.3 mg/dL 0.1-1.1 BILI UNCON (test code = 6886396476) 0.1 mg/dL 0.1-1.1 BILI CONJ (test code = 7058845368) 0.0 mg/dL 0.0-0.3 T PROTEIN (test code = 5474144116) 7.0 g/dL 6.3-8.2 ALBUMIN (test code = 8253071829) 3.8 g/dL 3.5-5.0 ALK PHOS (test code = 4649976522) 114 U/L 34-122 ALTv (test code = 1742-6) 16 U/L 5-35 AST(SGOT) (test code = 6621422557) 77 U/L 13-40 H Lab Interpretation (test cod e = 08946-6) Abnormal [facility] Brook[facility] FUNCTION PANEL (03702) (ALB,T.PRO,BILI T,BU/BC,ALT,AST,ALK PHOS)2021-01-27 06:43:32* Test Item Value Reference Range Interpretation Comme nts TOTAL BILI (test code = 3970979249) 0.3 mg/dL 0.1-1.1 BILI UNCON (test code = 1969252546) 0.1 mg/dL 0.1-1.1 BILI CONJ (test code = 7828812322) 0.0 mg/dL 0.0-0.3 T PROTEIN (test code = 0579709091) 7.0 g/dL 6.3-8.2 ALBUMIN (test code = 0382913560) 3.8 g/dL 3.5-5.0 ALK PHOS (test code = 3423584324) 114 U/L 34-122 ALTv (test code = 1742-6) 16 U/L 5-35 AST(SGOT) (test code = 1172393544) 77 U/L 13-40 H Lab Interpretation (test cod e = 38555-9) Abnormal [facility]XR CHEST 1 [id number] 06:12:38No acute cardiopulmonary process. RL: [id number]: [id number] Patient name: FLORES SMITH: 1990 30 years [...] 01/27/2021 1:13 AM CDT [facility]: [facility] 1990 30 years EXAMINATION: XR CHEST 1 VWOrdering Physician: ROSENDO VANCE CLINICAL HISTORY:fever COMPARISON:NoneTECHNIQUE:Single frontal view of the chest was performed. The technique of thisexamination is adequate.FINDINGS:Normal lung volumes. No focal infiltrate or consolidation. No effusion orpneumothorax. Heart size is normal without edema. Normal aortic contours.No acute osseous abnormality.IMPRESSIONNo acute cardiopulmonary process.RL: 8722AFC: [id number] signed by Maxime Bolaños at 01/27/2021 1:12 AMAdventHealth Rollins BrookXR CHEST 1 [id number] 06:12:38No acute cardiopulmonary process. RL: 8722AFC: [id number] Patient name: FLORES SMITH: 1990 30 years [...] acute osseous abnormality.IMPRESSIONNo acute cardiopulmonary process.RL: 8722AF: [id number] signed by Maxime Bolaños at 01/27/2021 1:12 AMUnValley [facility] Acid Whole [id number] 05:56:59* Test Item Value Reference Range Interpretation Comme nts LACTIC ACID (test code = 5030024895) 1.65 mmol/L 0.50-2.20 Lab Interpretation (test cod e = 22517-6) Normal [facility] Acid Whole [id number] 05:56:59* Test Item Value Reference Range Interpretation Comme nts LACTIC ACID (test code = 5507851086) 1.65 mmol/L 0.50-2.20 Lab Interpretation (test cod e = 05385-0) Normal [facility] Brook[facility]OVID-[facility] (ID NOW RAPID TESTING)2021-01-27 04:56:37* Test Item Value Reference Range Interpretation Comme nts SARS-CoV-2 Rapid ID NOW (test code = 69531-1) Positive Not Detected A ASHLEE (test code = ASHLEE) ID NOW COVID-19 As say is an isothermal nucleic acid amplification test intended for the qualitative detection of nucleic acid from SARS-CoV-2 viral RNA in nasopharyngeal (CORPORATE LEGAL ASSISTANT) specimens. It is used under Emergency [...] clinically indicated. Lab Interpretation (test code = 74292-7) Abnormal [facility] (ID NOW RAPID TESTING)2021-01-27 04:56:37* Test Item Value Reference Range Interpretation Comme nts SARS-CoV-2 Rapid ID NOW (test code = 38954-8) Positive Not Detected A ASHLEE (test code = ASHLEE) ID NOW COVID-19 As say is an isothermal nucleic acid amplification test intended for the qualitative detection of nucleic acid from SARS-CoV-2 viral RNA in nasopharyngeal (CORPORATE LEGAL ASSISTANT) specimens. It is used under Emergency [...] clinically indicated. Lab Interpretation (test code = 76594-4) Abnormal [facility] METABOLIC PANEL (NA, K, CL, CO2, GLUCOSE, BUN, CREATININE, CA)2021-01-27 02:53:47* Test Item Value Reference Range Interpretation Comme nts NA (test code = 3626947963) 140 mmol/L 135-145 K (test code = 9251779691) 3.6 mmol/L 3.5-5.0 CL (test code = 5759450659) 101 mmol/L 98-108 CO2 TOTAL (test code = 1907201952) 31 mmol/L 23-31 AGAP (test code = 0477235501) 2-16 BUN (test code = 0273883574) 6 mg/dL 7-23 L GLUCOSE (test code = 6528318411) 130 mg/dL 70-110 H CREATININE (test code = 6199245378) 0.49 mg/dL 0.50-1.04 L CALCIUM (test code = 1091489619) 9.4 mg/dL 8.6-10.6 eGFR (test code = 0312577590) mL/min/1.73m2 ASHLEE (test code = ASHLEE) Association [...] imaging tests). Lab Interpretation (test code = 40925-5) Abnormal [facility] METABOLIC PANEL (NA, K, CL, CO2, GLUCOSE, BUN, CREATININE, CA)2021-01-27 02:53:47* Test Item Value Reference Range Interpretation Comme nts NA (test code = 1197306229) 140 mmol/L 135-145 K (test code = 0181407782) 3.6 mmol/L 3.5-5.0 CL (test code = 3359473991) 101 mmol/L 98-108 CO2 TOTAL (test code = 8626833265) 31 mmol/L 23-31 AGAP (test code = 0586429222) 2-16 BUN (test code = 3120453236) 6 mg/dL 7-23 L GLUCOSE (test code = 9817656915) 130 mg/dL 70-110 H CREATININE (test code = 3283001438) 0.49 mg/dL 0.50-1.04 L CALCIUM (test code = 0470566322) 9.4 mg/dL 8.6-10.6 eGFR (test code = 9586961557) mL/min/1.73m2 ASHLEE (test code = ASHLEE) Association [...] imaging tests). Lab Interpretation (test code = 20410-4) [facility] [id number] 02:42:45* Test Item Value Reference Range Interpretation [...] g/dL 31.6-35.1 L RDW-SD (test code = 93953-7) 43.4 fL 39.0-49.9 RDW-CV (test code = 788-0) 14.1 % 12.0-15.5 PLT (test code = 777-3) See_Comment [Automated messa ge] The system which generated this result transmitted reference range: 166 - 358 10*3/?L. The reference range was not used to interpret this result as normal/abnormal. MPV (test code = 54371-2) 10.8 fL 9.5-12.9 NRBC/100 WBC (test code = 7325336877) See_Comment [Automated [employer] ssage] The system which generated this result transmitted reference range: 0.0 - 10.0 /100 WBCs. The reference range was not used to interpret this result as normal/abnormal. NRBC x10^3 (test code = 3784694774) <0.01 See_Comment [Automated messa ge] The system which generated this result transmitted reference range: 10*3/?L. The reference range was not used to interpret this result as normal/abnormal. GRAN MAT (NEUT) % (test code = 770-8) 70.5 % IMM GRAN % (test code = 7867474702) 0.60 % LYMPH % (test code = 736-9) 19.5 % MONO % (test code = 5905-5) 5.6 % EOS % (test code = 713-8) 3.4 % BASO % (test code = 706-2) 0.4 % GRAN MAT x10^3(ANC) (test code = 9489746653) 7.35 10*3/uL 1.88-7.09 H IMM GRAN x10^3 (test code = 8526048711) 0.06 10*3/uL 0.00-0.06 LYMPH x10^3 (test code = 731-0) 2.03 10*3/uL 1.32-3.29 MONO x10^3 (test code = 742-7) 0.58 10*3/uL 0.33-0.92 EOS x10^3 (test code = 711-2) 0.35 10*3/uL 0.03-0.39 BASO x10^3 (test code = 704-7) 0.04 10*3/uL 0.01-0.07 Lab Interpretation (test code = 07921-5) [facility] WITH [id number] 02:42:45* Test Item Value Reference Range Interpretation [...] g/dL 31.6-35.1 L RDW-SD (test code = 36975-8) 43.4 fL 39.0-49.9 RDW-CV (test code = 788-0) 14.1 % 12.0-15.5 PLT (test code = 777-3) See_Comment [Automated messa ge] The system which generated this result transmitted reference range: 166 - 358 10*3/?L. The reference range was not used to interpret this result as normal/abnormal. MPV (test code = 80346-3) 10.8 fL 9.5-12.9 NRBC/100 WBC (test code = 0460139323) See_Comment [Automated [employer] ssage] The system which generated this result transmitted reference range: 0.0 - 10.0 /100 WBCs. The reference range was not used to interpret this result as normal/abnormal. NRBC x10^3 (test code = 6144743365) <0.01 See_Comment [Automated messa ge] The system which generated this result transmitted reference range: 10*3/?L. The reference range was not used to interpret this result as normal/abnormal. GRAN MAT (NEUT) % (test code = 770-8) 70.5 % IMM GRAN % (test code = 0007927994) 0.60 % LYMPH % (test code = 736-9) 19.5 % MONO % (test code = 5905-5) 5.6 % EOS % (test code = 713-8) 3.4 % BASO % (test code = 706-2) 0.4 % GRAN MAT x10^3(ANC) (test code = 1903713546) 7.35 10*3/uL 1.88-7.09 H IMM GRAN x10^3 (test code = 3488888622) 0.06 10*3/uL 0.00-0.06 LYMPH x10^3 (test code = 731-0) 2.03 10*3/uL 1.32-3.29 MONO x10^3 (test code = 742-7) 0.58 10*3/uL 0.33-0.92 EOS x10^3 (test code = 711-2) 0.35 10*3/uL 0.03-0.39 BASO x10^3 (test code = 704-7) 0.04 10*3/uL 0.01-0.07 Lab Interpretation (test code = 80750-2) [facility]normal [facility] [id number] 02:30:00* Test Item Value Reference Range Interpretation Comme nts POCT PREG (test code = 1605) negative On board controls acceptable with C Line (test code = 3574) present POCT PREG LOT # (test code = 3575) [id number] POCT PREG TEST DATE ( test code = 3576) 07/27/2022 Lab Interpretation (test cod e = 08793-2) Normal [facility]POCT [id number] 02:30:00* Test Item Value Reference Range Interpretation Comme nts POCT PREG (test code = 1605) negative On board controls acceptable with C Line (test code = 3574) present POCT PREG LOT # (test code = 3575) [id number] POCT PREG TEST DATE ( test code = 3576) 07/27/2022 Lab Interpretation (test cod e = 90239-8) Normal [facility] BrookLactic Acid Whole [id number] 02:23:17* Test Item Value Reference Range Interpretation Comme nts LACTIC ACID (test code = 0249818626) 3.15 mmol/L 0.50-2.20 H Lab Interpretation (test cod e = 85318-9) Abnormal [facility] BrookLactic Acid Whole [id number] 02:23:17* Test Item Value Reference Range Interpretation Comme nts LACTIC ACID (test code = 1338012881) 3.15 mmol/L 0.50-2.20 H Lab Interpretation (test cod e = 60387-2) Abnormal [facility] BrookPOCT [id number] 23:07:00* Test Item Value Reference Range Interpretation Comme nts POCT PREG (test code = 1605) Negative On board controls acceptable with C Line (test code = 3574) Yes POCT PREG LOT # (test code = 3575) POCT PREG TEST DATE ( test code = 3576) [facility] Notes Date/Time Note Provider Source [facility]2025-08-29 00:00:00 Peter Cuevas [facility]2025-08-27 00:00:00 Peter Cuevas [facility]2025-08-25 00:00:00 Peter Cuevas [facility]2025-08-21 00:00:00 Peter Cuevas [facility]2025-08-18 00:00:00 Peter Cuevas [facility]2025-08-05 00:00:00 Peter Cuevas [facility]2024-09-10 13:42:00 [facility] ([facility]) OB Disch REPORT#:[id number] REPORT STATUS: Signed REPORT INITIALIZATION DATE:05/07/24 TIME: 1341 PATIENT: FLORES ZAVALETA UNIT #: [id number] ROOM/BED: [place] [address] : [birth year] AGE: 33 SEX: F ATTEND: Damaso Zee MD ADM AUTHOR: Damaso Zee MD REPT SERVICE DT/TIME: 05/07/24 134 * ALL edits or amendments must be [...] Result Date Time Pulse Ox 97 05/07 800 B/P 110/74 05/07 800 Temp 37.2 05/07 800 Pulse 89 05/07 800 Resp 16 05/07 800 B/P Mean 92.0 05/06 2000 PATIENT WEIGHT: [...] Instructions Additional discharge routines: None at 1344 [facility] #:[id number] END OF [id number] 13:39:997750-0877 [place] [address] PATIENT NAME: FLORES ZAVALETA ADMIT DATE: 05/05/24 ACCOUNT NO: [id number] ROOM NO: [facility] AGE: 33 REPORT TYPE: HISTORY AND PHYSICAL [...] Date Transcribed: 05/05/2024 13:54:37 RUCHI/EMILIA Receipt ID: [id number] Authenticated by Sariah Scott MD On 05/15/2024 08:00:45 AM at 0800 PATIENT NAME: FLORES ZAVALETA 13:37:00 [facility] ([facility]) DT Operative Note REPORT#:[id number] REPORT STATUS: Signed REPORT INITIALIZATION DATE:05/05/24 TIME: 1336 PATIENT: FLORES ZAVALETA UNIT #: [id number] ROOM/BED: : 88 AGE: 33 SEX: F [...] Laps count was correct at 1338 RPT #:[id number] END OF [id number] 01:57:00 [facility] ([facility]) EMERGENCY PROVIDER REPORT REPORT#:[id number] REPORT STATUS: Signed DATE:05/05/24 TIME: 156 PATIENT: FLORES ZAVALETA UNIT #: [id number] ROOM/BED: : 88 AGE: 33 SEX:F PCP PHYS: Damaso Zee MD SERVICE AUTHOR: Zeinba Solano MD REP SRV REP SRV TM: [...] asthma (uses albuterol inhaler) Past surgical history: [place] Butt lift 2020 Social history: , no [...] Admit to L D at 0250 RPT #:[id number] END OF [id number] 12:41:00 [facility] ([facility]) CAREY Evaluation Note REPORT#:[id number] REPORT STATUS: Signed REPORT INITIALIZATION DATE:04/22/24 TIME: 124 PATIENT: FLORES ZAVALETA UNIT #: [id number] ROOM/BED: : 88 AGE: 33 SEX: F ATTEND: Damaso Zee MD ADM DT: AUTHOR: Meghan Streeter MD REPT SERVICE DT/TIME: 04/22/24 1241 * ALL edits or amendments must be made on the electronic/computer document * CAREY History Chief complaint: uterine contractions Notes: Patient is a 33-year-old G [id number] at 37 weeks and 5 days with an GENET of May 08, 2024 who reports painful contractions about every 20 to 30 minutes since yesterday AM 1 AM patient reports waking up around 3 AM and noticing spotting on wiping because of the painful contractions and the spotting she went into the office today in [place] and they did a sterile speculum exam but did not do a digital exam she was told that the cervical os was open and to go to the hospital to be evaluated patient again reports her contractions are once every 2030 minutes spotting on wiping no leakage or gush patient this was asked by the patient twice through the quality control scientist and again patient denies any gush of [...] 04/22 1234 Resp 16 04/22 1234 B/P 111/71 04/22 1242 B/P Mean 86.0 04/22 1242 Date Temp Pulse Resp B/P B/P Mean Pulse Ox FiO2 04/22 98.3 73-82 16 111 86.0 98-99 PATIENT WEIGHT: Weight (lb): Weight [...] with: patient, spouse/partner, nurse at 1334 RPT #:[id number] END OF [id number] 00:00:00 [facility]2024-08-16 00:00:00 [facility]2024-08-15 00:00:00 [facility]2024-08-02 00:00:00 [facility]2024-07-29 00:00:00 [facility]2024-07-19 00:00:00 [facility]2024-07-05 00:00:00 [facility]2024-06-26 00:00:00 [facility]2024-06-14 00:00:00 [facility]2024-05-17 00:00:00 [facility]2024-04-19 00:00:00 [facility]2024-04-16 00:00:00 [facility]
[2025-05-27] MEDS ORDERED: DIPHENHYDRAMINE 50 MG/ML VIAL ONE (09:02)
[2025-05-27] MEDS ORDERED: METHYLPREDNISOLONE 125 MG INJ ONE (09:02)
[2025-05-27 09:03] LABS: Absolute Lymphocytes (CBC) 2.2 K/uL (0.7-4.9); Hematocrit 33.4 % (36.0-45.0); Hemoglobin 11.1 g/dL (12.0-15.0); MCH 26.1 pg (27.0-35.0); MCHC 33.1 g/dL (32.0-36.0); MCV 79.0 fL (80-100); MPV 8.6 fL (7.6-11.3); Nucleated RBC Absolute Count 0.0 (0-0); Nucleated Red Blood Cells % 0.0 % (0-0); RBC Red Blood Cell Count 4.23 M/uL (3.86-4.86); White Blood Count 10.40 thou/uL (4.3-10.9)
[2025-05-27] MEDS ORDERED: FAMOTIDINE 20 MG/2 ML VIAL IV ONE (09:03)
[2025-05-27] MEDS ORDERED: NA CHLORIDE 0.9% 1,000 ML ONE (09:03)
[2025-05-27 09:20] LABS: Anion Gap 8.5 mEq/L (5.0-15.0); BUN Blood Urea Nitrogen 13.0 mg/dL (7-18); Glucose Level 96.0 mg/dL (74-106); Potassium 4.5 mEq/L (3.5-5.1)
[2025-05-27 09:58] LABS: Influenza A Ag Negative; Influenza B Ag Negative; SARS-CoV-2 Antigen Rapid Res Negative (Negative)
--- NOTE | 2025-05-27 10:03 | ER ---
Nurse's Notes [facility] Name: Erika Dai Age: 34 yrs Sex: Female : 1990 Arrival Date: 05/27/2025 Time: 08:28 Bed 13 Private MD: Diagnosis: Rash and other nonspecific skin eruption Presentation: 05/27 08:55 Chief complaint: Patient states: rash started 6 days ago on thighs and is moving to af3 breast and arms, no pain, itching, or burning stated. Coronavirus screen: At this time, the client does not indicate any symptoms associated with coronavirus-19. Ebola Screen: No symptoms or risks identified at this time. Initial Sepsis Screen: Does the patient meet any 2 criteria? No. Patient's initial sepsis screen is negative. Does the patient have a suspected source of infection? No. Patient's initial sepsis screen is negative. Risk Assessment: Do you want to hurt yourself or someone else? Patient reports no desire to harm self or others. Onset of symptoms was May 21, 2025. 08:55 Method Of Arrival: Ambulatory af3 08:55 Acuity: GERHARD 4 af3 Triage Assessment: 08:57 General: Appears in no apparent distress. comfortable, well groomed, well developed, af3 Behavior is calm, cooperative, appropriate for age. Pain: Denies pain. Neuro: Level of Consciousness is awake, alert, obeys commands, Oriented to person, place, time, situation, Appropriate for age. Cardiovascular: Patient's skin is warm and dry. Respiratory: Airway is patent Respiratory effort is even, unlabored, Respiratory pattern is regular, symmetrical. Derm: Rash noted that is red. Historical: - PMHx: 08:57 Asthma; af3 - PSHx: 08:57 BBL; af3 - Immunization history:: Adult Immunizations unknown. - Infectious Disease History:: Denies. - Social history:: Smoking status: Patient denies any tobacco usage or history of. Screenin:45 [facility] ED Fall Risk Assessment (Adult) History of falling in the last 3 months, af3 including since admission No falls in past 3 months (0 pts) Confusion or Disorientation No (0 pts) Intoxicated or Sedated No (0 pts) Impaired Gait No (0 pts) Mobility Assist Device Used No (0 pt) Altered Elimination No (0 pt) Score/Fall Risk Level 0 - 2 = Low Risk Oriented to surroundings, Maintained a safe environment. Abuse screen: Denies threats or abuse. Denies injuries from another. Nutritional screening: No deficits noted. Tuberculosis screening: No symptoms or risk factors identified. Assessment: 08:59 General: see triage assessment. af3 09:44 Reassessment: Patient appears in no apparent distress at this time. No changes from af3 previously documented assessment. Patient and/or family updated on plan of care and expected duration. Pain level reassessed. Vital Signs: 08:55 BP 107 / 74; Pulse 58; Resp 18; Temp 97.6; Pulse Ox 100% on R/A; af3 09:44 BP 115 / 71; Pulse 63; Resp 18; Pulse Ox 100% on R/A; af3 ED Course: 08:33 Patient arrived in ED. al6 08:33 Erika Branch PA-C is PHCP. sb4 08:33 Dandre Mcconnell DO is Attending Physician. sb4 08:45 Loly Tapia RN is Primary Nurse. af3 08:57 Triage completed. af3 08:57 Arm band placed on. af3 08:59 Initial lab(s) drawn, by ak, sent to lab. Inserted saline lock: 20 gauge in left af3 antecubital area, using aseptic technique. Blood collected. Flushed with 10 mL NS. 09:45 Patient has correct armband on for positive identification. Bed in low position. Call af3 light in reach. Provided Education on: meds, call light use . 09:45 No provider procedures requiring assistance completed. af3 10:31 IV discontinued, intact, bleeding controlled, No redness/swelling at site. Pressure af3 dressing applied. Administered Medications: 09:25 Drug: NS 0.9% IV 1000 ml IV at 1000 ml once; to be given as a bolus over 60 minutes af3 Route: IV; Rate: 1000 ml; Site: left antecubital; 10:31 Follow up: Response: No adverse reaction; IV Status: Completed infusion; IV Intake: af3 1000ml 09:25 Drug: MethylPrednisoLONE IVP 125 mg IVP once Route: IVP; Site: left antecubital; af3 10:30 Follow up: Response: No adverse reaction af3 09:25 Drug: Famotidine IVP 20 mg IVP once; dilute with 10 mL 0.9% NaCl; give over 2 minutes af3 Route: IVP; Site: left antecubital; 10:30 Follow up: Response: No adverse reaction af3 09:25 Drug: diphenhydrAMINE IVP 25 mg IVP once Route: IVP; Site: left antecubital; af3 10:30 Follow up: Response: No adverse reaction af3 Medication: 09:46 VIS not applicable for this client. af3 Intake: 10:31 IV: 1000ml; Total: 1000ml. af3 Outcome: 10:03 Discharge ordered by . sb4 10:31 Discharged to home ambulatory, af3 10:31 Condition: stable 10:31 Discharge instructions given to patient, Instructed on discharge instructions, follow up and referral plans. medication usage, Demonstrated understanding of instructions, follow-up care, medications, Prescriptions given X 3, 10:31 Patient left the ED. af3 Signatures: Erika Branch PA-C PA-C sb4 Loly Tapia RN RN af3 Joanie Chen6
--- NOTE | 2025-05-27 10:03 | EDPHYS ---
Physician Documentation [facility] Name: Erika Dai Age: 34 yrs Sex: Female : 1990 Arrival Date: 05/27/2025 Time: 08:28 Bed 13 Private MD: ED Physician Dandre Mcconnell HPI: 05/27 08:49 This 34 yrs old Female presents to ER via Unassigned with complaints of Rash. sb4 08:49 Patient reports a diffuse rash on her entire body for almost a week now. States that sb4 she saw her doctor 2 days after it started and was prescribed a Medrol Dosepak. States that she has been taking it as well as Benadryl but it has not improved. She denies any new meds, new exposures, has tried to clean all of her close to make sure that was not the cause, does not have any pets. No family members have rashes either. No fever or chills, no facial swelling or shortness of breath. States that she has been seeing an oncologist because they thought the might have peritoneal carcinomatosis but they recently told her that she does not. Historical: - PMHx: 08:57 Asthma; af3 - PSHx: 08:57 BBL; af3 - Immunization history:: Adult Immunizations unknown. - Infectious Disease History:: Denies. - Social history:: Smoking status: Patient denies any tobacco usage or history of. ROS: 08:50 Constitutional: Negative for fever, chills, and weight loss, sb4 08:50 Skin: Positive for rash, 08:50 All other systems are negative, Exam: 08:50 Head/Face: Normocephalic, atraumatic. Eyes: Extra-ocular motions intact. Periorbital sb4 areas with no swelling, redness, or edema. ENT: Mucous membranes moist. Cardiovascular: Regular rate and rhythm with a normal S1 and S2. Respiratory: No increased work of breathing, no retractions or nasal flaring. Abdomen/GI: Soft, non-tender, no distension. 08:50 Constitutional: The patient appears in no acute distress, alert, awake, 08:50 Skin: rash can be described as erythematous, macular, nonspecific, papular, and is diffusely located, Vital Signs: 08:55 BP 107 / 74; Pulse 58; Resp 18; Temp 97.6; Pulse Ox 100% on R/A; af3 09:44 BP 115 / 71; Pulse 63; Resp 18; Pulse Ox 100% on R/A; af3 MDM: 08:33 Medical Screening Exam initiated sb4 08:52 Differential diagnosis: impetigo, varicella, allergic reaction, parasite infection, sb4 carcinoma. 10:02 Data reviewed: vital signs, nurses notes, lab test result(s), and as a result, I will sb4 discharge patient. Counseling: I had a detailed discussion with the patient and/or guardian regarding the historical points, exam findings, and any diagnostic results supporting the discharge/admit diagnosis, lab results, the need for outpatient follow up, for definitive care, to return to the emergency department if symptoms worsen or persist or if there are any questions or concerns that arise at home. 05/27 08:42 Order name: CBC with Diff; Complete Time: 09:09 sb4 05/27 08:42 Order name: BMP; Complete Time: 09:20 sb4 05/27 08:42 Order name: Test, Serum; Complete Time: 09:19 sb4 05/27 08:50 Order name: COVID-19 Ag + Flu A+B Ag; Complete Time: 09:59 sb4 05/27 08:42 Order name: IV Start; Complete Time: 08:59 sb4 Administered Medications: 09:25 Drug: NS 0.9% IV 1000 ml IV at 1000 ml once; to be given as a bolus over 60 minutes af3 Route: IV; Rate: 1000 ml; Site: left antecubital; 10:31 Follow up: Response: No adverse reaction; IV Status: Completed infusion; IV Intake: af3 1000ml 09:25 Drug: MethylPrednisoLONE IVP 125 mg IVP once Route: IVP; Site: left antecubital; af3 10:30 Follow up: Response: No adverse reaction af3 09:25 Drug: Famotidine IVP 20 mg IVP once; dilute with 10 mL 0.9% NaCl; give over 2 minutes af3 Route: IVP; Site: left antecubital; 10:30 Follow up: Response: No adverse reaction af3 09:25 Drug: diphenhydrAMINE IVP 25 mg IVP once Route: IVP; Site: left antecubital; af3 10:30 Follow up: Response: No adverse reaction af3 Disposition: 16:52 I was immediately available on-site in the Emergency Department for consultation in the ms3 care of the patient. Disposition Summary: 05/27/25 10:03 Discharge Ordered Notes: Location: Home sb4 Problem: new sb4 Symptoms: have improved sb4 Condition: Stable sb4 Diagnosis - Rash and other nonspecific skin eruption sb4 Followup: sb4 - With: Emergency Department - When: As needed - Reason: Trouble breathing, Worsening of condition Discharge Instructions: - Discharge Summary Sheet sb4 - Rash, Adult, [id number] sb4 Forms: - Patient Portal Instructions sb4 - Leadership Thank You Letter sb4 Prescriptions: - Pepcid 20 mg Oral Tablet - take 1 tablet ORAL route every 12 hours for 5 days; 10 tablet; Refills: 0, sb4 Product Selection Permitted - Loratadine 10 mg Oral Tablet - take 1 tablet ORAL route once daily; 14 tablet; Refills: 0, Product Selection sb4 Permitted - Prednisone 20 mg Oral Tablet - take 2 tablets ORAL route once daily for 5 days; 10 tablet; Refills: 0, Product sb4 Selection Permitted Signatures: Dispatcher [employer] EDMS Dandre Mcconnell DO DO ms3 Erika Branch PA-C PA-C sb4 Loly Tapia RN RN af3 Corrections: (The following items were deleted from the chart) 08:56 08:49 Patient reports a diffuse rash on her entire body for almost a week now. States sb4 that she saw her doctor 2 days after it started and was prescribed a Medrol Dosepak. States that she has been taking it as well as Benadryl but it has not improved. She denies any new meds, new exposures, has tried to clean all of her close to make sure that was not the cause, does not have any pets. No family members have rashes as well. No fever or chills. sb4
[2025-05-27 10:39] VITALS: TEMP 97.6; O2SAT 100
[2025-05-27 10:41] VITALS: BP 115/71
== END 2025-05-27 10:31 | disposition home or self-care (01) ==
LOC: ER 08:28
DX: R21 Rash and other nonspecific skin eruption (principal); Z11.52 Encounter for screening for COVID-19; J45.909 Unspecified asthma, uncomplicated
CPT/HCPCS: 96361; 85025; 80048; 36415; 84703; 96375; 96374; 99284; 87428; J1200; J2919; J7030